=== PATIENT | female | born 1955 | race Caucasian/White ===

== ENCOUNTER → 2016-08-16 | Outpatient (CLI) | payer MEDICARE, MEDICAID ==
[2016-08-16 14:46] LABS: ALANINE AMINOTRANSFERASE 25 U/L (9-52); ALBUMIN 3.1 g/dL (3.5-5.0); ALKALINE PHOSPHATASE 90 U/L (38-126); ANION GAP 7 (5-19); ASPARTATE AMINO TRANSFERASE 22 U/L (14-36); BILIRUBIN,TOTAL 0.4 mg/dL (0.2-1.3); BLOOD UREA NITROGEN 14 mg/dL (7-20); CALCIUM 9.2 mg/dL (8.4-10.2); CARBON DIOXIDE 26 mmol/L (22-30); CHLORIDE 108 mmol/L (98-107); CREATININE RESULT 0.64 mg/dL (0.52-1.25); GLUCOSE 75 mg/dL (75-110); SODIUM 140.7 mmol/L (137-145); TOTAL PROTEIN 5.5 g/dL (6.3-8.2)
[2016-08-18 07:49] LABS: IMMUNOGLOBULIN A 104 mg/dL (87-352)
== END ==
LOC: OD 12:43
PROVIDERS: ATTEND Nurse Practitioner
DX: R10.9 Unspecified abdominal pain (principal); R19.7 Diarrhea, unspecified
CPT/HCPCS: 36415; 80048; 80076; 82784; 83516

== ENCOUNTER 2016-12-18 02:29 | Emergency (ER) | payer MEDICARE, MEDICAID ==
--- NOTE | 2016-12-18 02:58 | ER Document Report ---
ED Fall - General Chief Complaint: General Weakness Stated Complaint: WEAKNESS Time Seen by Provider: 12/18/16 02:48 Mode of Arrival: Medic Information source: Patient Notes: 61-year-old female presents to ED via EMS after a fall at home. According to EMS her states that she heard her crying and calling out she come in from a walk and fell. Patient is confused and answering questions inappropriately eyes pinpoint falling to sleep. TRAVEL OUTSIDE OF THE [place] IN LAST 30 DAYS: No - HPI Occurred: This morning Where: Home Associated symptoms: Dazed/confused - slurred speech Quality of pain: No pain Severity: None Pain Level: Denies - Related data Allergies/Adverse Reactions: No Known Allergies Allergy (Verified 12/18/16 02:43) Past Medical History - General Information source: Patient - Social History Smoking Status: Current Every Day Smoker Cigarette use (# per day): Yes - ppd Chew tobacco use (# tins/day): No Smoking Education Provided: Yes - less than min Frequency of alcohol use: Social Drug Abuse: None Lives with: Spouse/Significant other - Family History: Reviewed & Not Pertinent Patient has suicidal ideation: No Patient has homicidal ideation: No - Past Medical History Cardiac Medical History: Reports: None Pulmonary Medical History: Reports: Hx COPD - questionable EENT Medical History: Reports: None Neurological Medical History: Reports: None Endocrine Medical History: Reports: None Renal/ Medical History: Reports: None Malignancy Medical History: Reports: None GI Medical History: Reports: None Musculoskeltal Medical History: Reports Hx Arthritis - generalized , Reports Hx Musculoskeletal Deformity, Reports Other - chronic pain syndrome Skin Medical History: Reports None Psychiatric Medical History: Reports: Hx Anxiety Traumatic Medical History: Reports: None Infectious Medical History: Reports: None Past Surgical History: Reports: Hx Cholecystectomy, Hx Orthopedic Surgery - astrid wrists, ankle, Hx Tonsillectomy, Hx Tubal Ligation - Immunizations Hx Diphtheria, Pertussis, Tetanus Vaccination: No Review of Systems - Review of Systems Constitutional: No symptoms reported EENT: Other - pinpoint pupils Cardiovascular: Dizziness, Lightheaded, Other - hypotensive Respiratory: No symptoms reported Gastrointestinal: No symptoms reported Genitourinary: No symptoms reported Female Genitourinary: No symptoms reported Musculoskeletal: No symptoms reported Skin: No symptoms reported Hematologic/Lymphatic: No symptoms reported Neurological/Psychological: Confusion, Weakness, Speech impairment - slurred -: Yes All other systems reviewed and negative Physical Exam - Vital signs Vitals: BP Pulse Ox 92/69 L 98 12/18/16 02:35 12/18/16 02:35 Interpretation: Normal - General General appearance: Appears well, Alert - HEENT Head: Normocephalic, Atraumatic Eyes: Normal Pupils: PERRL - Respiratory Respiratory status: No respiratory distress Chest status: Nontender Breath sounds: Normal Chest palpation: Normal - Cardiovascular Rhythm: Regular Heart sounds: Normal auscultation Murmur: No - Abdominal Inspection: Normal Distension: No distension Bowel sounds: Normal Tenderness: Nontender Organomegaly: No organomegaly - Back Back: Normal, Nontender - Extremities General upper extremity: Normal inspection, Nontender, Normal color, Normal ROM , Normal temperature General lower extremity: Normal inspection, Nontender, Normal color, Normal ROM , Normal temperature, Normal weight bearing. No: Jose's sign - Neurological Neuro grossly intact: Yes Cognition: Confused Kristian Coma Scale Eye Opening: Spontaneous [place] Coma Scale Verbal: Confused Kristian Coma Scale Motor: Obeys Commands Kristian Coma Scale Total: 14 Speech: Normal Motor strength normal: LUE, RUE, LLE, RLE Additional motor exam normals: Equal asset protection professional Babinski reflex: Normal (flexor plantar) Sensory: Normal - Psychological Associated symptoms: Confused, Other - Patient has slurred speech, sometimes answers questions appropriately sometimes does not, appropriate answers. Responds to verbal stimuli sometimes. - Skin Skin Temperature: Warm Skin Moisture: Dry Skin Color: Normal Course - Re-evaluation Re-evalutation: 12/18/16 06:03 Patient is now alert and oriented a week able to ambulate steady on her feet. Consulted Dr. Mattson stated the patient can go home now as her medications have worn off. Patient home to follow-up with her primary doctor. - Vital Signs Vital signs: Temp Pulse Resp BP Pulse Ox 97.6 F 88 5 L 112/91 H 100 12/18/16 02:46 12/18/16 03:31 12/18/16 05:26 12/18/16 05:26 12/18/16 05:26 - Laboratory Result Diagrams: 12/18/16 02:57 12/18/16 02:57 Laboratory results interpreted by me: 12/18/16 12/18/16 02:57 02:57 RBC 3.40 L Hgb 10.4 L Hct 31.9 L RDW 14.5 H Chloride 113 H Direct Bilirubin 0.5 H Total Protein 5.4 L Albumin 3.0 L - Diagnostic Test Radiology reviewed: Image reviewed, Reports reviewed Discharge - Discharge Clinical Impression: Weakness Condition: Stable Disposition: HOME, SELF-CARE Additional Instructions: you were seen today for weakness and confusion to your pain medications that she took tonight. Your now awake alert oriented and able to walk freely. Please forward when taken your pain medication so that they do not make weekly and fall. Please follow-up with your primary doctor in Tuesday FOLLOW-UP CARE: If you have been referred to a physician for follow-up care, call the physician s office for an appointment as you were instructed or within the next two days. If you experience worsening or a significant change in your symptoms, notify the physician immediately or return to the Emergency Department at any time for re-evaluation. Forms: Elevated Blood Pressure, Smoking Cessation Education Referrals: IRIS APARICIO NP [COMMUNITY BASED STAFF] - Follow up as needed
[2016-12-18] MEDS ORDERED: NALOXONE HCL INJ/PF 0.4 MG/1 ML SDV IV ONE (03:11)
[2016-12-18 03:13] LABS: ABSOLUTE BASOPHILS # (AUTO) 0.1 10^3/uL (0.0-0.2); ABSOLUTE EOSINOPHILS # (AUTO) 0.3 10^3/uL (0.0-0.6); ABSOLUTE LYMPHOCYTES (AUTO) 1.9 10^3/uL (0.5-4.7); ABSOLUTE MONOCYTES (AUTO) 0.5 10^3/uL (0.1-1.4); ABSOLUTE NEUT (AUTO) 5.6 10^3/uL (1.7-8.2); BASOPHILS % (AUTO) 0.8 % (0-2); EOSINOPHILS % (AUTO) 3.4 % (0-6); HEMATOCRIT 31.9 % (36.0-47.0); HEMOGLOBIN 10.4 g/dL (12.0-15.5); HGB HCT DIFFERENCE -0.7; LYMPHOCYTES % (AUTO) 22.2 % (13-45); MEAN CORPUSCULAR HEMOGLOBIN 30.5 pg (27.0-33.4); MEAN CORPUSCULAR HGB CONC 32.5 g/dL (32.0-36.0); MEAN CORPUSCULAR VOLUME 94 fl (80-97); MONOCYTES % (AUTO) 6.6 % (3-13); RED CELL DISTRIBUTION WIDTH 14.5 % (11.5-14.0); WHITE BLOOD COUNT 8.3 10^3/uL (4.0-10.5)
[2016-12-18 03:19] LABS: ALANINE AMINOTRANSFERASE 28 U/L (9-52); ALKALINE PHOSPHATASE 86 U/L (38-126); ANION GAP 5 (5-19); ASPARTATE AMINO TRANSFERASE 15 U/L (14-36); BILIRUBIN,DIRECT 0.5 mg/dL (0.0-0.4); BILIRUBIN,TOTAL 0.5 mg/dL (0.2-1.3); BLOOD UREA NITROGEN 17 mg/dL (7-20); CALCIUM 8.7 mg/dL (8.4-10.2); CARBON DIOXIDE 23 mmol/L (22-30); CHLORIDE 113 mmol/L (98-107); CREATINE KINASE 74 U/L (30-135); CREATININE RESULT 0.84 mg/dL (0.52-1.25); GLUCOSE 94 mg/dL (75-110); POTASSIUM 3.8 mmol/L (3.6-5.0); SODIUM 141.2 mmol/L (137-145); TOTAL PROTEIN 5.4 g/dL (6.3-8.2)
[2016-12-18 03:25] LABS: PROTHROMBIN TIME 12.5 SEC (11.4-15.4)
--- NOTE | 2016-12-18 03:27 | RADIOLOGY REPORT (SQ) ---
EXAM DESCRIPTION: CT HEAD WITHOUT COMPLETED DATE/TIME: 12/18/2016 3:10 am REASON FOR STUDY: fall confused altered mental COMPARISON: 08/01/2015. MRI, 06/16/2015. TECHNIQUE: Axial images acquired through the brain without intravenous contrast. Images reviewed wi th bone, brain and subdural windows. Images stored on PACS. All CT scanners at this facility use dose modulation, iterative reconstruction, and/or weight based d osing when appropriate to reduce radiation dose to as low as reasonably achievable (ALARA). [facility]: Dose Right [facility]: CareDose [facility]: Dose Right [facility]: Teradose 4D [facility]: [employer] RADIATION DOSE: Up-to-date CT equipment and radiation dose reduction techniques were employed. CTDIv ol: 64.6 mGy. DLP: 1163 mGy-cm. mGy. LIMITATIONS: None. FINDINGS: VENTRICLES: Normal size and contour. CEREBRUM: No masses. No hemorrhage. No midline shift. Normal sanchez/white matter differentiation. N o evidence for acute infarction. Scattered areas of poorly defined diminished white matter density c onsistent with advanced white matter microangiopathy or other white matter process, stable. Small la cunar infarct at the head of the left caudate nucleus. CEREBELLUM: No masses. No hemorrhage. No alteration of density. No evidence for acute infarction. EXTRAAXIAL SPACES: No fluid collections. No masses. ORBITS AND GLOBE: No intra- or extraconal masses. Normal contour of globe without masses. CALVARIUM: No fracture. PARANASAL SINUSES: No fluid or mucosal thickening. SOFT TISSUES: No mass or hematoma. OTHER: No other significant finding. IMPRESSION: No acute findings. Small lacunar infarct of the left basal ganglia. [id number] c hronic white matter microangiopathy pattern. TECHNICAL DOCUMENTATION: JOB ID: [id number] Quality ID # [id number]: Final reports with documentation of one or more dose reduction techniques (e.g., Au tomated exposure control, adjustment of the mA and/or kV according to patient size, use of iterative reconstruction technique) 2010 [employer]- All Rights Reserved
--- NOTE | 2016-12-18 03:29 | RADIOLOGY REPORT (SQ) ---
EXAM DESCRIPTION: CHEST SINGLE VIEW COMPLETED DATE/TIME: 12/18/2016 3:16 am REASON FOR STUDY: hypotensive today altered COMPARISON: 01/26/2016. EXAM PARAMETERS: NUMBER OF VIEWS: One view. TECHNIQUE: Single frontal radiographic view of the chest acquired. RADIATION DOSE: NA LIMITATIONS: None. FINDINGS: LUNGS AND PLEURA: No opacities, masses or pneumothorax. No pleural effusion. Mild interst itial markings. MEDIASTINUM AND HILAR STRUCTURES: No masses. Contour normal. HEART AND VASCULAR STRUCTURES: Heart normal in size. Normal vasculature. BONES: No acute findings. HARDWARE: None in the chest. OTHER: No other significant finding. IMPRESSION: No acute cardiopulmonary findings. TECHNICAL DOCUMENTATION: JOB ID: [id number]
[2016-12-18 03:36] LABS: TROPONIN I < 0.012 ng/mL
[2016-12-18 04:01] LABS: APPEARANCE,URINE CLEAR; BILIRUBIN,URINE NEGATIVE (NEGATIVE); GLUCOSE, URINE NEGATIVE (NEGATIVE); KETONES,URINE NEGATIVE (NEGATIVE); LEUKOCYTE ESTERASE,URINE NEGATIVE (NEGATIVE); NITRITE,URINE NEGATIVE (NEGATIVE); PROTEIN,URINE NEGATIVE (NEGATIVE); URINE SPECIFIC GRAVITY 1.013; UROBILINOGEN,URINE NEGATIVE mg/dL (<2.0)
[2016-12-18 04:04] LABS: URINE BARBITURATES SCREEN NEGATIVE; URINE METHADONE SCREEN NEGATIVE; URINE OPIATES LOW UNCONFIRMED POSITIVE; URINE PHENCYCLIDINE SCREEN NEGATIVE
[2016-12-18 07:05] VITALS: BP 120/72
--- NOTE | 2016-12-18 09:12 | EKG REPORT ---
SEVERITY:- NORMAL ECG - SINUS RHYTHM : Confirmed by: You Lopez MD 18-Dec-2016 09:11:39
== END 2016-12-18 07:06 | disposition home or self-care (01) ==
LOC: ER 02:29
DX: R53.1 Weakness (principal); R41.0 Disorientation, unspecified; R47.81 Slurred speech; I95.9 Hypotension, unspecified; R42 Dizziness and giddiness; F17.210 Nicotine dependence, cigarettes, uncomplicated; Z71.6 Tobacco abuse counseling; Z91.81 History of falling
CPT/HCPCS: 93005; 99285; 96374; 36415; 82553; 82550; 85025; 85610; 80053; 81001; 84484; 80307; 71010; 70450; 93010; J2310

== ENCOUNTER 2016-12-19 17:02 | Emergency (ER) | payer MEDICARE, MEDICAID ==
[2016-12-19] MEDS ORDERED: NORMAL SALINE 1000 ML 1,000 ML IV ONE ×2 (17:15→21:55)
[2016-12-19 17:40] LABS: PROTHROMBIN TIME 12.9 SEC (11.4-15.4)
[2016-12-19 17:44] LABS: ABSOLUTE EOSINOPHILS # (AUTO) 0.2 10^3/uL (0.0-0.6); ABSOLUTE LYMPHOCYTES (AUTO) 2.5 10^3/uL (0.5-4.7); ABSOLUTE MONOCYTES (AUTO) 0.5 10^3/uL (0.1-1.4); BASOPHILS % (AUTO) 0.5 % (0-2); EOSINOPHILS % (AUTO) 1.7 % (0-6); HEMATOCRIT 30.6 % (36.0-47.0); HEMOGLOBIN 9.9 g/dL (12.0-15.5); HGB HCT DIFFERENCE -0.9; LYMPHOCYTES % (AUTO) 27.2 % (13-45); MEAN CORPUSCULAR HEMOGLOBIN 30.4 pg (27.0-33.4); MEAN CORPUSCULAR HGB CONC 32.3 g/dL (32.0-36.0); MEAN CORPUSCULAR VOLUME 94 fl (80-97); MONOCYTES % (AUTO) 5.7 % (3-13); RED BLOOD COUNT 3.25 10^6/uL (3.72-5.28); RED CELL DISTRIBUTION WIDTH 14.7 % (11.5-14.0); SEGMENTED NEUTROPHILS % (AUTO) 64.9 % (42-78); WHITE BLOOD COUNT 9.3 10^3/uL (4.0-10.5)
[2016-12-19 17:47] LABS: APPEARANCE,URINE CLEAR; BILIRUBIN,URINE NEGATIVE (NEGATIVE); GLUCOSE, URINE NEGATIVE (NEGATIVE); KETONES,URINE NEGATIVE (NEGATIVE); LEUKOCYTE ESTERASE,URINE TRACE (NEGATIVE); NITRITE,URINE NEGATIVE (NEGATIVE); PROTEIN,URINE NEGATIVE (NEGATIVE); URINE SPECIFIC GRAVITY 1.023; UROBILINOGEN,URINE NEGATIVE mg/dL (<2.0)
[2016-12-19 17:55] LABS: VENOUS BLOOD BASE EXCESS -3.9 mmol/L; VENOUS BLOOD HCO3 23.2 mmol/L (20-32); VENOUS BLOOD PCO2 51.6 mmHg (35-63); VENOUS BLOOD PH 7.27 (7.30-7.42)
[2016-12-19 18:01] LABS: ALANINE AMINOTRANSFERASE 30 U/L (9-52); ALBUMIN 3.1 g/dL (3.5-5.0); ALKALINE PHOSPHATASE 83 U/L (38-126); ANION GAP 7 (5-19); ASPARTATE AMINO TRANSFERASE 16 U/L (14-36); BILIRUBIN,DIRECT 0.5 mg/dL (0.0-0.4); BILIRUBIN,TOTAL 0.5 mg/dL (0.2-1.3); BLOOD UREA NITROGEN 18 mg/dL (7-20); CALCIUM 8.9 mg/dL (8.4-10.2); CARBON DIOXIDE 22 mmol/L (22-30); CHLORIDE 112 mmol/L (98-107); CREATINE KINASE 118 U/L (30-135); CREATININE RESULT 0.88 mg/dL (0.52-1.25); GLUCOSE 77 mg/dL (75-110); POTASSIUM 3.4 mmol/L (3.6-5.0); TOTAL PROTEIN 5.5 g/dL (6.3-8.2)
--- NOTE | 2016-12-19 18:09 | ER Document Report ---
ED General - General Cannot obtain history due to: Altered mental status TRAVEL OUTSIDE OF THE [place] IN LAST 30 DAYS: No <JOSUE POOLE - Last Filed: 12/19/16 19:48> <JIM HURST - Last Filed: 12/19/16 23:29> - General Chief Complaint: Possible Overdose Stated Complaint: ALTERED MENTAL STATUS Time Seen by Provider: 12/19/16 17:13 Notes: Patient is a 61 year old female who presents to the ED with altered mental status. Patient knows she is in the hospital but is unsure why she was brought here. Patient denies any pain but later stated she had new abdominal pain. Patient also denied a cough but a cough was noted while in the exam room. History limited due to patients current clinical condition. (JOSUE POOLE ) - Related Data Allergies/Adverse Reactions: No Known Allergies Allergy (Verified 12/18/16 02:43) Past Medical History - General Cannot obtain history due to: Altered mental status - Social History Smoking Status: Unknown if Ever Smoked Family History: Reviewed & Not Pertinent - Past Medical History Cardiac Medical History: Denies: Hx Coronary Artery Disease, Hx Heart Attack, Hx Hypertension Pulmonary Medical History: Reports: Hx COPD - questionable Denies: Hx Asthma, Hx Bronchitis, Hx Pneumonia Neurological Medical History: Denies: Hx Cerebrovascular Accident, Hx Seizures Renal/ Medical History: Denies: Hx Peritoneal Dialysis Musculoskeltal Medical History: Reports Hx Arthritis - generalized , Reports Hx Musculoskeletal Deformity Psychiatric Medical History: Reports: Hx Anxiety Past Surgical History: Reports: Hx Cholecystectomy, Hx Orthopedic Surgery - astrid wrists, ankle, Hx Tonsillectomy, Hx Tubal Ligation - Immunizations Hx Diphtheria, Pertussis, Tetanus Vaccination: No <JOSUE POOLE - Last Filed: 12/19/16 19:48> Review of Systems - Review of Systems -: Yes ROS unobtainable due to patient's medical condition Gastrointestinal: Abdominal pain <JOSUE POOLE - Last Filed: 12/19/16 19:48> Physical Exam - Vital signs Interpretation: Hypotensive. No: Bradycardic, Tachycardic, Tachypneic, Febrile - General General appearance: Lethargic - Respiratory Respiratory status: No respiratory distress Chest status: Nontender Breath sounds: Normal Chest palpation: Normal - Cardiovascular Rhythm: Regular Heart sounds: Normal auscultation Murmur: No - Abdominal Inspection: Normal Distension: No distension Bowel sounds: Normal Tenderness: Nontender Organomegaly: No organomegaly - Back Back: Normal, Nontender - Extremities General upper extremity: Normal inspection, Nontender, Normal color, Normal ROM , Normal temperature General lower extremity: Normal inspection, Nontender, Normal color, Normal ROM , Normal temperature, Normal weight bearing. No: Jose's sign - Neurological Cognition: Confused Orientation: Disoriented to time, Disoriented to events. No: Disoriented to person, Disoriented to place Kristian Coma Scale Eye Opening: To Voice [place] Coma Scale Verbal: Confused Kristian Coma Scale Motor: Obeys Commands Kristian Coma Scale Total: 13 Speech: Normal Motor strength normal: LUE, RUE, LLE, RLE Sensory: Normal <JIM HURST - Last Filed: 12/19/16 23:29> - Vital signs Vitals: Temp Pulse Resp BP Pulse Ox 98.1 F 92 13 95/65 L 97 12/19/16 17:10 12/19/16 17:10 12/19/16 17:10 12/19/16 17:10 12/19/16 17:10 Course - Laboratory Result Diagrams: 12/19/16 17:20 12/19/16 17:20 <JOSUE POOLE - Last Filed: 12/19/16 19:48> - Laboratory Result Diagrams: 12/19/16 17:20 12/19/16 17:20 <JIM HURST - Last Filed: 12/19/16 23:29> - Re-evaluation Re-evalutation: 12/19/16 19:20 Narcan was administered. Patient appears more arousable. 12/19/16 19:48 Patient has not improved following the dose of Narcan. Patient now has diarrhea. (JOSUE POOLE) 12/19/16 19:30 Patient is a 61-year-old female who comes in for weakness and drowsiness. EMS was called apparently by her family. Patient states that she is in the hospital and she is just very tired because she has been doing too much work lately. She cannot tell me the date or time. Patient with no acute findings on imaging or blood work except for a slight acidosis on blood gas. Patient has been seen before for polypharmacy. Patient has empty bottles with Suboxone lorazepam, and gabapentin. Given Narcan with minimal response. Given second dose with diarrhea although the patient is slightly more arousable. 12/19/16 20:19 Stool sent for culture. 12/19/16 23:00 Patient is awake and asking to leave. Explained that she was here it seems because she is taking too many of her medications. Patient states that she may have taken some of her family members medications by mistake as well. Explained to the patient that this is the second time this week she has been here for the and she needs to be more careful with her medications. Patient is not suicidal. Stable for discharge otherwise. (JIM HURST) - Vital Signs Vital signs: Temp Pulse Resp BP Pulse Ox 98.5 F 82 14 127/83 H 100 12/19/16 23:00 12/19/16 23:00 12/19/16 23:00 12/19/16 23:00 12/19/16 23:00 - Laboratory Laboratory results interpreted by me: 12/19/16 12/19/16 12/19/16 17:20 17:20 17:20 RBC 3.25 L Hgb 9.9 L Hct 30.6 L RDW 14.7 H VBG pH Potassium 3.4 L Chloride 112 H Lactic Acid Direct Bilirubin 0.5 H Total Protein 5.5 L Albumin 3.1 L Ur Leukocyte Esterase TRACE H 12/19/16 12/19/16 17:40 17:40 RBC Hgb Hct RDW VBG pH 7.27 L Potassium Chloride Lactic Acid 0.6 L Direct Bilirubin Total Protein Albumin Ur Leukocyte Esterase Discharge <JOSUE POOLE - Last Filed: 12/19/16 19:48> <JIM HURST - Last Filed: 12/19/16 23:29> - Discharge Clinical Impression: Weakness, Polypharmacy Overdose Qualifiers: Encounter type: initial encounter Injury intent: accidental or unintentional Qualified Code(s): T50.901A - Poisoning by unspecified drugs, medicaments and biological substances, accidental (unintentional), initial encounter Condition: Stable Disposition: HOME, SELF-CARE Instructions: Weakness ([facility]), Instructions for Home Care Following a Drug Overdose ([facility]), Overdose ([facility]) Additional Instructions: Please make sure you are only taking your medication as prescribed. Please make sure you are not taking anybody else's medication. Referrals: IRIS APARICIO NP [Primary Care Provider] - Follow up tomorrow Tracey Attestation: 12/19/16 23:29 I personally performed the services described in the documentation, reviewed and edited the documentation which was dictated to the scribe in my presence, and it accurately records my words and actions. (JIM HURST) Scribe Documentation - Scribe Written by Tracey:: tracey Hudson, 12/19/2016, 1809 acting as scribe for :: Niko <JOSUE POOLE - Last Filed: 12/19/16 19:48>
[2016-12-19 18:11] LABS: CREATINE KINASE MB 1.31 ng/mL (<4.55)
[2016-12-19 18:13] LABS: TROPONIN I < 0.012 ng/mL
--- NOTE | 2016-12-19 18:14 | RADIOLOGY REPORT (SQ) ---
EXAM DESCRIPTION: CHEST SINGLE VIEW COMPLETED DATE/TIME: 12/19/2016 5:31 pm REASON FOR STUDY: AMS COMPARISON: 12/18/2016 EXAM PARAMETERS: NUMBER OF VIEWS: One view. TECHNIQUE: Single frontal radiographic view of the chest acquired. RADIATION DOSE: NA LIMITATIONS: None. FINDINGS: LUNGS AND PLEURA: No acute opacities, masses or pneumothorax. No pleural effusion. MEDIASTINUM AND HILAR STRUCTURES: No masses. Contour normal. HEART AND VASCULAR STRUCTURES: Heart normal in size. Normal vasculature. BONES: No acute findings. HARDWARE: None in the chest. OTHER: No other significant finding. IMPRESSION: NO ACUTE RADIOGRAPHIC FINDING IN THE CHEST. TECHNICAL DOCUMENTATION: JOB ID: [id number]
[2016-12-19 18:42] LABS: URINE BARBITURATES SCREEN NEGATIVE; URINE METHADONE SCREEN NEGATIVE; URINE OPIATES LOW UNCONFIRMED POSITIVE; URINE PHENCYCLIDINE SCREEN NEGATIVE
[2016-12-19] MEDS ORDERED: NALOXONE HCL INJ/PF 0.4 MG/1 ML SDV IV ONE ×2 (18:49→19:18)
--- NOTE | 2016-12-19 20:47 | RADIOLOGY REPORT (SQ) ---
EXAM DESCRIPTION: CT HEAD WITHOUT COMPLETED DATE/TIME: 12/19/2016 8:36 pm REASON FOR STUDY: AMS COMPARISON: 12/18/2016 TECHNIQUE: Axial images acquired through the brain without intravenous contrast. Images reviewed wi th bone, brain and subdural windows. Images stored on PACS. All CT scanners at this facility use dose modulation, iterative reconstruction, and/or weight based d osing when appropriate to reduce radiation dose to as low as reasonably achievable (ALARA). [facility]: Dose Right [facility]: CareDose [facility]: Dose Right [facility]: Teradose 4D [facility]: [employer] RADIATION DOSE: mGy. LIMITATIONS: None. FINDINGS: VENTRICLES: Prominent. CEREBRUM: No masses. No hemorrhage. No midline shift. Areas of low density in the white matter mos t likely due to chronic micro-vascular ischemic change. No evidence for acute infarction. CEREBELLUM: No masses. No hemorrhage. No alteration of density. No evidence for acute infarction. EXTRAAXIAL SPACES: Mild age-related involutional change. No fluid collections. No masses. ORBITS AND GLOBE: No intra- or extraconal masses. Normal contour of globe without masses. CALVARIUM: No fracture. PARANASAL SINUSES: No fluid or mucosal thickening. SOFT TISSUES: No mass or hematoma. OTHER: No other significant finding. IMPRESSION: No acute intracranial findings. TECHNICAL DOCUMENTATION: JOB ID: [id number] Quality ID # [id number]: Final reports with documentation of one or more dose reduction techniques (e.g., Au tomated exposure control, adjustment of the mA and/or kV according to patient size, use of iterative reconstruction technique) 2010 [employer]- All Rights Reserved
[2016-12-19] MEDS ORDERED: FLUMAZENIL INJ 0.5 MG/5 ML VIAL IV ONE (21:55)
[2016-12-19 23:03] VITALS: BP 127/83
--- NOTE | 2016-12-20 08:16 | EKG REPORT ---
SEVERITY:- OTHERWISE NORMAL ECG - SINUS RHYTHM LOW VOLTAGE IN FRONTAL LEADS : Confirmed by: You Lopez MD 20-Dec-2016 08:16:00
== END 2016-12-19 23:02 | disposition home or self-care (01) ==
LOC: ER 17:02
DX: T50.901A Poisoning by unspecified drugs, medicaments and biological substances, accidental (unintentional), initial encounter (principal); I95.9 Hypotension, unspecified; R10.9 Unspecified abdominal pain; R19.7 Diarrhea, unspecified; R53.1 Weakness; R40.0 Somnolence; E87.2 Acidosis; R05 Cough; Z90.49 Acquired absence of other specified parts of digestive tract
CPT/HCPCS: 93005; 99285; 51701; 96374; 36415; 87040; 87045; 87086; 89055; 87205; 82553; 82962; 82550; 85025; 85610; 82272; 80053; 81001; 84484; 80307; 87493 ×2; 82803; 83605; 71010; 70450; 93010; J2310; J7030; J3490

== ENCOUNTER → 2017-01-13 | Outpatient (CLI) | payer MEDICARE, MEDICAID ==
[2017-01-13 10:35] LABS: ABSOLUTE BASOPHILS # (AUTO) 0.1 10^3/uL (0.0-0.2); ABSOLUTE EOSINOPHILS # (AUTO) 0.3 10^3/uL (0.0-0.6); ABSOLUTE LYMPHOCYTES (AUTO) 2.5 10^3/uL (0.5-4.7); ABSOLUTE MONOCYTES (AUTO) 0.5 10^3/uL (0.1-1.4); ABSOLUTE NEUT (AUTO) 3.2 10^3/uL (1.7-8.2); EOSINOPHILS % (AUTO) 4.7 % (0-6); HEMATOCRIT 33.3 % (36.0-47.0); HGB HCT DIFFERENCE -0.3; LYMPHOCYTES % (AUTO) 37.8 % (13-45); MEAN CORPUSCULAR HGB CONC 32.9 g/dL (32.0-36.0); MEAN CORPUSCULAR VOLUME 94 fl (80-97); MONOCYTES % (AUTO) 7.6 % (3-13); RED BLOOD COUNT 3.53 10^6/uL (3.72-5.28); RED CELL DISTRIBUTION WIDTH 14.2 % (11.5-14.0); SEGMENTED NEUTROPHILS % (AUTO) 48.9 % (42-78); WHITE BLOOD COUNT 6.5 10^3/uL (4.0-10.5)
[2017-01-13 11:26] LABS: ALANINE AMINOTRANSFERASE 22 U/L (9-52); ALBUMIN 3.7 g/dL (3.5-5.0); ALKALINE PHOSPHATASE 94 U/L (38-126); AMYLASE 45 U/L (30-110); ASPARTATE AMINO TRANSFERASE 16 U/L (14-36); BILIRUBIN,DIRECT 0.4 mg/dL (0.0-0.4); BILIRUBIN,TOTAL 0.4 mg/dL (0.2-1.3); LIPASE 41.5 U/L (23-300); TOTAL PROTEIN 6.3 g/dL (6.3-8.2)
== END ==
LOC: OD 09:31
PROVIDERS: ATTEND Nurse Practitioner
DX: R10.9 Unspecified abdominal pain (principal); K86.1 Other chronic pancreatitis
CPT/HCPCS: 36415; 80076; 82150; 83690; 85025

== ENCOUNTER 2017-01-18 09:24 | Day surgery (SDC) | payer MEDICARE, MEDICAID ==
[2017-01-13 10:32] LABS: APPEARANCE,URINE CLEAR; BILIRUBIN,URINE NEGATIVE (NEGATIVE); GLUCOSE, URINE NEGATIVE (NEGATIVE); KETONES,URINE NEGATIVE (NEGATIVE); LEUKOCYTE ESTERASE,URINE TRACE (NEGATIVE); NITRITE,URINE NEGATIVE (NEGATIVE); PROTEIN,URINE NEGATIVE (NEGATIVE); URINE SPECIFIC GRAVITY 1.021; UROBILINOGEN,URINE NEGATIVE mg/dL (<2.0)
[2017-01-13 10:41] LABS: HEMATOCRIT 33.3 % (36.0-47.0); HGB HCT DIFFERENCE -0.3; MEAN CORPUSCULAR HGB CONC 32.9 g/dL (32.0-36.0); MEAN CORPUSCULAR VOLUME 94 fl (80-97); RED BLOOD COUNT 3.53 10^6/uL (3.72-5.28); RED CELL DISTRIBUTION WIDTH 14.2 % (11.5-14.0); WHITE BLOOD COUNT 6.5 10^3/uL (4.0-10.5)
[~2017-01-18 09:24] MED LIST: LACTATED RINGERS 1000 ML IV PRN; LIDOCAINE 0.5% INJ-PF (5 MG/ML) 50 ML SDV SUBCUT PRN; LIDOCAINE 2%/EPINEPHRINE INJ 20 ML VIAL ONE
[2017-01-18] MEDS ORDERED: MIDAZOLAM 2 MG/2 ML INJ ONE ×2 (10:04→11:37)
[2017-01-18] MEDS ORDERED: FENTANYL CITRATE INJ/PF 100 MCG/2 ML AMPUL ONE ×2 (10:59→11:37)
[2017-01-18] MEDS ORDERED: FENTANYL CITRATE INJ/PF 100 MCG/2 ML AMPUL IV PRN ×4 (11:00→12:25)
[2017-01-18] MEDS ORDERED: PROPOFOL INJ 200 MG/20 ML VIAL IV ONE (11:37)
[2017-01-18] MEDS ORDERED: IBUPROFEN INJ 800 MG/8 ML VIAL IV ONE (11:37)
[2017-01-18] MEDS ORDERED: ACETAMINOPHEN 0 ML IV ONE (11:37)
[2017-01-18] MEDS ORDERED: DEXAMETHASONE SOD PHOSPHATE INJ 4 MG/1 ML VIAL ONE (11:41)
[2017-01-18] MEDS ORDERED: ONDANSETRON HCL INJ/PF 4 MG/2 ML SDV ONE (11:41)
[2017-01-18] MEDS ORDERED: SUCCINYLCHOLINE CHLORIDE INJ 200 MG/10 ML VIAL ONE (12:12)
[2017-01-18] MEDS ORDERED: DIPHENHYDRAMINE HCL 50 MG/ML VIAL IV PRN (12:25)
[2017-01-18] MEDS ORDERED: PROMETHAZINE HCL INJ 25 MG/1 ML VIAL IV PRN ×2 (12:25)
[2017-01-18] MEDS ORDERED: OXYCODONE-ACETAMINOPHEN 5-325 MG TABLET PO PRN ×2 (12:25)
[2017-01-18] MEDS ORDERED: ONDANSETRON HCL INJ/PF 4 MG/2 ML SDV IV PRN ×2 (12:25→13:37)
[2017-01-18] MEDS ORDERED: MEPERIDINE HCL/PF INJ 25 MG/1 ML DISP.SYRIN IV PRN (12:25)
[2017-01-18] MEDS ORDERED: MORPHINE SULFATE 10 MG/ML INJ IV PRN (12:25)
[2017-01-18] MEDS: FENTANYL CITRATE INJ/PF 100 MCG/2 ML AMPUL ONE ×2 (13:15→13:20)
[2017-01-18 15:24] VITALS: BP 140/82
--- NOTE | 2017-02-17 12:30 | Operative Report ---
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 REviewed with patient due to anatomy (prior CKC) and would recommend evaluation and management in the OR. She desires to proceed with planned procedure. The risks,benefits, alternatives were reviewed. ] Procedure: The patient was taken to the Operating Room where general anesthesia was obtained without difficulty. She was prepped and draped in the normal sterile fashion in the dorsal lithotomy position. Exam under anesthesia was performed and noted above. A speculum was placed in the vagina. The anterior cervix was grasped with a single-tooth tenaculum and paracervical block was performed with 8 mL of 1% lidocaine with epinephrine. Sutures of 20 vicryl were placed at that 3 o'clock and the 9 o'clock position. Lugols solution was then placed on the cervix with diffuse generalized uptake. Due to prior pathology and concern that abnormality may be higher in the cervix endometrial currettings were attempted. At this time the cold knife conization was performed in the usual fashion and sent ot pathology. Endocervical currettage was performed above the CKC specimen and the bed of the CKC was cauterized for hemostasis. Thrombin foam soaked in monsels was then placed in the bed of the CKC and retained in place with the prior placed sutures. Excess suture was removed. Good hemostasis was achieved. All instruments were removed from the patient's cervix and vagina. Sponge lap needle and instrument counts are correct 2. The patient tolerated the procedure well and was taken to the recovery area awake and in stable condition.
== END 2017-01-18 15:05 | disposition home or self-care (01) ==
LOC: OROUT 09:24
PROVIDERS: ATTEND Student in an Organized Health Care Education/Training Program
PROC: 0UBC7ZX Excision of Cervix, Via Natural or Artificial Opening, Diagnostic (ICD-10-PCS; principal; 2017-01-18 11:15)
DX: R87.613 High grade squamous intraepithelial lesion on cytologic smear of cervix (HGSIL) (principal); F17.210 Nicotine dependence, cigarettes, uncomplicated; M19.90 Unspecified osteoarthritis, unspecified site; Z85.41 Personal history of malignant neoplasm of cervix uteri; Z79.899 Other long term (current) drug therapy
CPT/HCPCS: 36415; 85027; 81001; 88305 ×2; 88307 ×2; 57520; J2250; J1100; J3010; J3490; A9270; J0330; J2405; J2704; J1741; 940; J0131

== ENCOUNTER 2017-03-13 15:59 | Emergency (ER) | payer MEDICARE, MEDICAID ==
[2017-03-13] MEDS ORDERED: NORMAL SALINE 1000 ML 1,000 ML IV ONE (16:34)
--- NOTE | 2017-03-13 16:35 | ER Document Report ---
ED General - General Mode of Arrival: Medic Information source: Emergency Med Personnel TRAVEL OUTSIDE OF THE [place] IN LAST 30 DAYS: No <ROCKY HUTCHINSON - Last Filed: 03/13/17 16:50> <MELODIE WILLIS - Last Filed: 03/13/17 23:27> - General Chief Complaint: Fall Stated Complaint: WEAKNESS Time Seen by Provider: 03/13/17 16:14 Notes: Patient is a 61-year-old female presented emergency department for fall and possible altered mental status. She was brought in by EMS he reports that the patient fell earlier today and is still sitting on the floor when they arrived. They report that the patient lives with a partner who was unable to help patient off the floor. EMS reports the patient was confused and had pale skin color. They also report the patient had generalized pain with movement. Patient was hypotensive upon arrival. Patient is a poor historian and mentions something about her pancreas. According to the [place] controlled substance reporting system the patient is chronically on oxycodone and Ativan. Patient last filled 90 tablets of 1 mg Ativan on 02/24/2017; patient takes 1 mg twice a day. Patient also filled 56 tablets of 10 mg oxycodone on 03/11/2017; this amount of tablets was increased from previous prescriptions of oxycodone. Patient's PCP is Nelly Richardson. (ROCKY HUTCHINSON) - Related Data Allergies/Adverse Reactions: No Known Allergies Allergy (Verified 01/11/17 10:27) Past Medical History - General Information source: Patient - Social History Smoking Status: Current Every Day Smoker Cigarette use (# per day): Yes - <0.5 ppd Chew tobacco use (# tins/day): No Smoking Education Provided: No Frequency of alcohol use: Heavy Drug Abuse: None Family History: None Patient has suicidal ideation: No Patient has homicidal ideation: No Pulmonary Medical History: Reports: Hx COPD - questionable Musculoskeltal Medical History: Reports Hx Arthritis - generalized , Reports Hx Musculoskeletal Deformity Psychiatric Medical History: Reports: Hx Anxiety Past Surgical History: Reports: Hx Cholecystectomy, Hx Orthopedic Surgery - astrid wrists, ankle, Hx Tonsillectomy, Hx Tubal Ligation - Immunizations Hx Diphtheria, Pertussis, Tetanus Vaccination: No <ROCKY HUTCHINSON - Last Filed: 03/13/17 16:50> Review of Systems - Review of Systems -: Yes ROS unobtainable due to patient's medical condition - Fall, confused <ROCKY HUTCHINSON - Last Filed: 03/13/17 16:50> Physical Exam - Vital signs Interpretation: Hypotensive <ROCKY HUTCHINSON - Last Filed: 03/13/17 16:50> <LAZAROMARIBELMELODIE - Last Filed: 03/13/17 23:27> - Vital signs Vitals: Temp Pulse Resp BP Pulse Ox 98.2 F 69 18 84/60 L 100 03/13/17 16:14 03/13/17 16:14 03/13/17 16:14 03/13/17 16:14 03/13/17 16:14 - Notes Notes: GENERAL: Alert, interacts well. Mild distress. HEAD: Normocephalic, atraumatic. EYES: Appear normal. Pupils equal, round, and reactive to light. ENT: Moist mucus membranes, tongue midline. NECK: Full range of motion. Supple. Trachea midline. LUNGS: Clear to auscultation bilaterally, no wheezes, rales, or rhonchi. No respiratory distress. HEART: Regular rate and rhythm. No murmurs, gallops, or rubs. ABDOMEN: Soft, non-tender. Non-distended. Normal bowel sounds. EXTREMITIES: Moves all 4 extremities spontaneously. Normal strength. No edema. NEUROLOGICAL: Patient whispers and speaks on her breath when answering certain questions. No focal neurological deficits. GCS 15. PSYCH: Normal affect, normal mood. SKIN: Warm, dry, normal turgor, pale. (ROCKY HUTCHINSON) Course <ROCKY HUTCHINSON - Last Filed: 03/13/17 16:50> - Laboratory Result Diagrams: 03/13/17 16:00 03/13/17 16:00 - Diagnostic Test Radiology reviewed: Image reviewed, Reports reviewed - Chest x-ray is unremarkable - EKG Interpretation by Me EKG shows normal: Sinus rhythm, Edison, Intervals, QRS Complexes, ST-T Waves Rate: Normal Rhythm: NSR <LAZAROMARIBEL GoddardMELODIE - Last Filed: 03/13/17 23:27> - Re-evaluation Re-evalutation: 03/13/17 17:25 The patient seemed to wake up quite a bit after IV Narcan. This is not the first time she is come here overmedicated. 10/01/17 18:29 When the patient was first seen, it was very difficult to understand her answers as they seem to be whispered and her speech was thick. At this time her blood pressure is up from the 80s-128, she is awake oriented. She claims that she was only tired because she has been having to take care of her . I advised her that she did seem to wake up after receiving Narcan which would suggest her symptoms were more likely due to excessive narcotic medication. At that point she wanted to know if she could go back home at this time. A repeat examination while she is a awake enough to answer appropriately, shows there is no specific tenderness to her back, extremities, chest, or abdomen. There are no bony abnormalities noted. (MELODIE WILLIS) - Vital Signs Vital signs: Temp Pulse Resp BP Pulse Ox 98.2 F 69 20 144/80 H 99 03/13/17 16:14 03/13/17 16:14 03/13/17 19:00 03/13/17 19:00 03/13/17 18:01 - Laboratory Laboratory results interpreted by me: 03/13/17 03/13/17 03/13/17 16:00 16:00 16:00 RBC 2.65 L Hgb 8.2 L Hct 24.5 L RDW 14.3 H Eosinophils % 7.0 H Chloride 111 H BUN 22 H Lactic Acid 0.6 L Total Protein 5.6 L Albumin 3.2 L Critical Care Note - Critical Care Note Total time excluding time spent on procedures (mins): 30 <MELODIE WILLIS - Last Filed: 03/13/17 23:27> Discharge <ROCKY HUTCHINSON - Last Filed: 03/13/17 16:50> <MELODIE WILLIS - Last Filed: 03/13/17 23:27> - Discharge Clinical Impression: Narcotic overdose Qualifiers: Encounter type: initial encounter Injury intent: accidental or unintentional Qualified Code(s): T40.601A - Poisoning by unspecified narcotics, accidental ( unintentional), initial encounter Anemia Qualifiers: Anemia type: unspecified type Qualified Code(s): D64.9 - Anemia, unspecified Condition: Stable Disposition: HOME, SELF-CARE Additional Instructions: Overdose: You have taken more medication than you should have. After your evaluation and care, it is felt that your overdose is not likely to be harmful or of any significant consequences to you and you are being discharged. In the future, you should be careful not to take more medications than what is prescribed for you. Although your overdose does not seem to be of any danger to you at this time, if you develop any unusual or unexpected symptoms after your discharge, you should return to the Emergency Department immediately for re-evaluation. Anemia: You have been found to have a significant anemia (a lower than normal amount of red blood cells). Anemia can be due to iron deficiency, vitamin deficiency, abnormal bleeding, or internal diseases. Usually, further tests are necessary to find the exact cause of the anemia. The most common cause of anemia is iron deficiency, often brought on by blood loss. This can be treated with iron supplements. If this appears to be the most likely cause, iron tablets may be prescribed even before all tests are complete. Contact the doctor at once if you note black or tarry-looking stools, bloody vomiting, shortness of breath, chest pain, or faintness. You should be quite careful about dosing your narcotics and benzodiazepines because your visit today's seems to be due to excessive amount of narcotic in your system. You were also found to be more anemic than her baseline. You should follow-up with your doctor in the next 1-2 days to review your lab work and your accidental overdose. RETURN TO THE EMERGENCY ROOM IF ANY NEW OR WORSENING SYMPTOMS. Scribe Attestation: 03/13/17 17:26 I personally performed the services described in the documentation, reviewed and edited the documentation which was dictated to the scribe in my presence, and it accurately records my words and actions. (MELODIE WILLIS) Scribe Documentation - Scribe Written by Dmitri:: Dmitri Jung, 03/13/2017 [id number] acting as scribe for :: Lazaro <ROCKY HUTCHINSON - Last Filed: 03/13/17 16:50>
[2017-03-13] MEDS ORDERED: NALOXONE HCL INJ/PF 0.4 MG/1 ML SDV IV ONE (16:36)
[2017-03-13 17:05] LABS: APPEARANCE,URINE CLEAR; BILIRUBIN,URINE NEGATIVE (NEGATIVE); GLUCOSE, URINE NEGATIVE (NEGATIVE); KETONES,URINE NEGATIVE (NEGATIVE); LEUKOCYTE ESTERASE,URINE NEGATIVE (NEGATIVE); NITRITE,URINE NEGATIVE (NEGATIVE); PROTEIN,URINE NEGATIVE (NEGATIVE); URINE SPECIFIC GRAVITY 1.021; UROBILINOGEN,URINE NEGATIVE mg/dL (<2.0)
[2017-03-13 17:14] LABS: WBC,URINE 0-1 /HPF
--- NOTE | 2017-03-13 17:36 | RADIOLOGY REPORT (SQ) ---
EXAM DESCRIPTION: CHEST SINGLE VIEW COMPLETED DATE/TIME: 03/13/2017 5:24 pm REASON FOR STUDY: hypotension COMPARISON: 12/19/2016 EXAM PARAMETERS: NUMBER OF VIEWS: One view. TECHNIQUE: Single frontal radiographic view of the chest acquired. RADIATION DOSE: NA LIMITATIONS: None. FINDINGS: LUNGS AND PLEURA: No acute opacities, masses or pneumothorax. No pleural effusion. MEDIASTINUM AND HILAR STRUCTURES: Stable. HEART AND VASCULAR STRUCTURES: Heart normal in size. Normal vasculature. BONES: No acute findings. HARDWARE: None in the chest. OTHER: No other significant finding. IMPRESSION: NO ACUTE RADIOGRAPHIC FINDING IN THE CHEST. TECHNICAL DOCUMENTATION: JOB ID: [id number]
[2017-03-13 17:42] LABS: ABSOLUTE BASOPHILS # (AUTO) 0.1 10^3/uL (0.0-0.2); ABSOLUTE EOSINOPHILS # (AUTO) 0.5 10^3/uL (0.0-0.6); ABSOLUTE LYMPHOCYTES (AUTO) 1.5 10^3/uL (0.5-4.7); ABSOLUTE MONOCYTES (AUTO) 0.6 10^3/uL (0.1-1.4); ABSOLUTE NEUT (AUTO) 4.1 10^3/uL (1.7-8.2); BASOPHILS % (AUTO) 0.9 % (0-2); HEMATOCRIT 24.5 % (36.0-47.0); HEMOGLOBIN 8.2 g/dL (12.0-15.5); HGB HCT DIFFERENCE 0.1; LYMPHOCYTES % (AUTO) 22.1 % (13-45); MEAN CORPUSCULAR HGB CONC 33.6 g/dL (32.0-36.0); MEAN CORPUSCULAR VOLUME 92 fl (80-97); MONOCYTES % (AUTO) 9.5 % (3-13); RED BLOOD COUNT 2.65 10^6/uL (3.72-5.28); RED CELL DISTRIBUTION WIDTH 14.3 % (11.5-14.0); SEGMENTED NEUTROPHILS % (AUTO) 60.5 % (42-78); WHITE BLOOD COUNT 6.8 10^3/uL (4.0-10.5)
[2017-03-13 18:01] LABS: ALANINE AMINOTRANSFERASE 36 U/L (9-52); ALBUMIN 3.2 g/dL (3.5-5.0); ALKALINE PHOSPHATASE 86 U/L (38-126); ANION GAP 6 (5-19); ASPARTATE AMINO TRANSFERASE 22 U/L (14-36); BILIRUBIN,DIRECT 0.3 mg/dL (0.0-0.4); BILIRUBIN,TOTAL 0.3 mg/dL (0.2-1.3); BLOOD UREA NITROGEN 22 mg/dL (7-20); CALCIUM 9.7 mg/dL (8.4-10.2); CARBON DIOXIDE 25 mmol/L (22-30); CHLORIDE 111 mmol/L (98-107); CREATINE KINASE 117 U/L (30-135); CREATININE RESULT 0.89 mg/dL (0.52-1.25); GLUCOSE 90 mg/dL (75-110); MAGNESIUM 2.2 mg/dL (1.6-2.3); POTASSIUM 4.3 mmol/L (3.6-5.0); SODIUM 142.2 mmol/L (137-145); TOTAL PROTEIN 5.6 g/dL (6.3-8.2)
[2017-03-13 18:13] LABS: CREATINE KINASE MB 2.54 ng/mL (<4.55)
[2017-03-13 18:14] LABS: TROPONIN I < 0.012 ng/mL
[2017-03-13 19:57] VITALS: BP 144/80
--- NOTE | 2017-03-13 21:15 | EKG REPORT ---
SEVERITY:- NORMAL ECG - SINUS RHYTHM : Confirmed by: Lizeth Kelly 13-Mar-2017 21:15:06
== END 2017-03-13 19:57 | disposition home or self-care (01) ==
LOC: ER 15:59
DX: T40.601A Poisoning by unspecified narcotics, accidental (unintentional), initial encounter (principal); D64.9 Anemia, unspecified; R53.1 Weakness; W19.XXXA Unspecified fall, initial encounter; R41.82 Altered mental status, unspecified; Z79.899 Other long term (current) drug therapy; F17.210 Nicotine dependence, cigarettes, uncomplicated
CPT/HCPCS: 93005; 99291; 51701; 96374; 36415; 87040; 82553; 82550; 83735; 85025; 82272; 80053; 81001; 84484; 83605; 71010; 93010; J2310; J7030

== ENCOUNTER → 2017-04-12 | Outpatient (CLI) | payer MEDICARE, MEDICAID ==
[2017-04-14 16:12] LABS: HEMATOCRIT 26.5 % (36.0-47.0); HEMOGLOBIN 8.5 g/dL (12.0-15.5); MEAN CORPUSCULAR HEMOGLOBIN 27.7 pg (27.0-33.4); MEAN CORPUSCULAR VOLUME 87 fl (80-97); RED BLOOD COUNT 3.07 10^6/uL (3.72-5.28); RED CELL DISTRIBUTION WIDTH 16.1 % (11.5-14.0); WHITE BLOOD COUNT 8.1 10^3/uL (4.0-10.5)
[2017-04-14 17:00] LABS: ERYTHROCYTE SEDIMENTATION RATE 59 mm/hr (0-30)
== END ==
LOC: OD 15:38
PROVIDERS: ATTEND Specialist
DX: M54.16 Radiculopathy, lumbar region (principal)
CPT/HCPCS: 36415; 85027; 85652

== ENCOUNTER → 2017-05-03 | Outpatient (CLI) | payer MEDICARE, MEDICAID ==
[2017-05-03 18:11] LABS: ABSOLUTE BASOPHILS # (AUTO) 0.1 10^3/uL (0.0-0.2); ABSOLUTE EOSINOPHILS # (AUTO) 0.2 10^3/uL (0.0-0.6); ABSOLUTE MONOCYTES (AUTO) 0.5 10^3/uL (0.1-1.4); ABSOLUTE NEUT (AUTO) 4.4 10^3/uL (1.7-8.2); EOSINOPHILS % (AUTO) 3.4 % (0-6); HEMATOCRIT 28.7 % (36.0-47.0); HEMOGLOBIN 9.1 g/dL (12.0-15.5); HGB HCT DIFFERENCE -1.4; MEAN CORPUSCULAR HEMOGLOBIN 26.7 pg (27.0-33.4); MEAN CORPUSCULAR HGB CONC 31.7 g/dL (32.0-36.0); MEAN CORPUSCULAR VOLUME 84 fl (80-97); MONOCYTES % (AUTO) 7.1 % (3-13); RED BLOOD COUNT 3.41 10^6/uL (3.72-5.28); RED CELL DISTRIBUTION WIDTH 16.8 % (11.5-14.0); SEGMENTED NEUTROPHILS % (AUTO) 60.5 % (42-78); WHITE BLOOD COUNT 7.3 10^3/uL (4.0-10.5)
[2017-05-04 18:03] LABS: ALANINE AMINOTRANSFERASE 14 U/L (9-52); ALBUMIN 3.5 g/dL (3.5-5.0); ALKALINE PHOSPHATASE 87 U/L (38-126); ANION GAP 11 (5-19); ASPARTATE AMINO TRANSFERASE 15 U/L (14-36); BILIRUBIN,DIRECT 0.3 mg/dL (0.0-0.4); BILIRUBIN,TOTAL 0.3 mg/dL (0.2-1.3); BLOOD UREA NITROGEN 14 mg/dL (7-20); CALCIUM 9.3 mg/dL (8.4-10.2); CARBON DIOXIDE 25 mmol/L (22-30); CHLORIDE 110 mmol/L (98-107); CREATININE RESULT 0.85 mg/dL (0.52-1.25); GLUCOSE 62 mg/dL (75-110); POTASSIUM 3.6 mmol/L (3.6-5.0); TOTAL PROTEIN 5.9 g/dL (6.3-8.2)
== END ==
LOC: OD 16:13
PROVIDERS: ATTEND Specialist
DX: M54.16 Radiculopathy, lumbar region (principal); K83.1 Obstruction of bile duct
CPT/HCPCS: 36415; 80053; 85025; 85652

== ENCOUNTER → 2017-07-05 | Outpatient (CLI) | payer MEDICARE, MEDICAID ==
[2017-07-05 12:24] LABS: ABSOLUTE BASOPHILS # (AUTO) 0.1 10^3/uL (0.0-0.2); ABSOLUTE EOSINOPHILS # (AUTO) 0.3 10^3/uL (0.0-0.6); ABSOLUTE LYMPHOCYTES (AUTO) 1.9 10^3/uL (0.5-4.7); ABSOLUTE MONOCYTES (AUTO) 0.4 10^3/uL (0.1-1.4); ABSOLUTE NEUT (AUTO) 3.3 10^3/uL (1.7-8.2); EOSINOPHILS % (AUTO) 4.5 % (0-6); HEMATOCRIT 30.4 % (36.0-47.0); HEMOGLOBIN 9.6 g/dL (12.0-15.5); LYMPHOCYTES % (AUTO) 32.6 % (13-45); MEAN CORPUSCULAR HEMOGLOBIN 25.5 pg (27.0-33.4); MEAN CORPUSCULAR HGB CONC 31.6 g/dL (32.0-36.0); MEAN CORPUSCULAR VOLUME 81 fl (80-97); MONOCYTES % (AUTO) 6.4 % (3-13); PLATELET COUNT 353 10^3/uL (150-450); RED BLOOD COUNT 3.77 10^6/uL (3.72-5.28); RED CELL DISTRIBUTION WIDTH 19.9 % (11.5-14.0); SEGMENTED NEUTROPHILS % (AUTO) 55.5 % (42-78); TOTAL CELLS COUNTED % (AUTO) 100 %; WHITE BLOOD COUNT 5.9 10^3/uL (4.0-10.5)
[2017-07-05 12:40] LABS: IRON(TIBC) 83.9 ug/dL (37-170)
[2017-07-05 13:15] LABS: FERRITIN 8.74 ng/mL (11.1-264.0)
== END ==
LOC: LAB 11:49
PROVIDERS: ATTEND Internal Medicine Gastroenterology
DX: D19.7 Benign neoplasm of mesothelial tissue of other sites (principal); K86.9 Disease of pancreas, unspecified; R10.9 Unspecified abdominal pain
CPT/HCPCS: 36415; 82656; 82728; 83540; 83550; 85025

== ENCOUNTER → 2017-10-12 | Outpatient (CLI) | payer MEDICARE, MEDICAID ==
[2017-10-12 14:17] LABS: ABSOLUTE BASOPHILS # (AUTO) 0.1 10^3/uL (0.0-0.2); ABSOLUTE EOSINOPHILS # (AUTO) 0.3 10^3/uL (0.0-0.6); ABSOLUTE LYMPHOCYTES (AUTO) 1.9 10^3/uL (0.5-4.7); ABSOLUTE MONOCYTES (AUTO) 0.4 10^3/uL (0.1-1.4); ABSOLUTE NEUT (AUTO) 4.6 10^3/uL (1.7-8.2); BASOPHILS % (AUTO) 0.9 % (0-2); EOSINOPHILS % (AUTO) 3.9 % (0-6); HEMATOCRIT 31.8 % (36.0-47.0); HEMOGLOBIN 10.3 g/dL (12.0-15.5); LYMPHOCYTES % (AUTO) 26.4 % (13-45); MEAN CORPUSCULAR HEMOGLOBIN 27.1 pg (27.0-33.4); MEAN CORPUSCULAR HGB CONC 32.3 g/dL (32.0-36.0); MEAN CORPUSCULAR VOLUME 84 fl (80-97); MONOCYTES % (AUTO) 5.8 % (3-13); PLATELET COUNT 418 10^3/uL (150-450); RED CELL DISTRIBUTION WIDTH 16.4 % (11.5-14.0); TOTAL CELLS COUNTED % (AUTO) 100 %; WHITE BLOOD COUNT 7.3 10^3/uL (4.0-10.5)
== END ==
LOC: OD 12:46
PROVIDERS: ATTEND Nurse Practitioner
DX: D64.9 Anemia, unspecified (principal)
CPT/HCPCS: 36415; 85025

== ENCOUNTER → 2017-12-21 | Outpatient (CLI) | payer MEDICARE, MEDICAID ==
[2017-12-21 17:59] LABS: ABSOLUTE BASOPHILS # (AUTO) 0.1 10^3/uL (0.0-0.2); ABSOLUTE EOSINOPHILS # (AUTO) 0.3 10^3/uL (0.0-0.6); ABSOLUTE LYMPHOCYTES (AUTO) 2.6 10^3/uL (0.5-4.7); ABSOLUTE MONOCYTES (AUTO) 0.8 10^3/uL (0.1-1.4); ABSOLUTE NEUT (AUTO) 7.8 10^3/uL (1.7-8.2); BASOPHILS % (AUTO) 0.7 % (0-2); EOSINOPHILS % (AUTO) 2.5 % (0-6); HEMATOCRIT 31.2 % (36.0-47.0); LYMPHOCYTES % (AUTO) 22.5 % (13-45); MEAN CORPUSCULAR HEMOGLOBIN 26.8 pg (27.0-33.4); MEAN CORPUSCULAR VOLUME 84 fl (80-97); MONOCYTES % (AUTO) 6.9 % (3-13); PLATELET COUNT 451 10^3/uL (150-450); RED BLOOD COUNT 3.73 10^6/uL (3.72-5.28); RED CELL DISTRIBUTION WIDTH 16.9 % (11.5-14.0); SEGMENTED NEUTROPHILS % (AUTO) 67.4 % (42-78); TOTAL CELLS COUNTED % (AUTO) 100 %; WHITE BLOOD COUNT 11.6 10^3/uL (4.0-10.5)
== END ==
LOC: OD 16:56
PROVIDERS: ATTEND Nurse Practitioner
DX: D64.9 Anemia, unspecified (principal)
CPT/HCPCS: 36415; 85025

== ENCOUNTER 2018-12-10 21:38 | Emergency (ER) | payer MEDICAID, MEDICARE ==
[2018-12-10] MEDS ORDERED: NORMAL SALINE 1000 ML 1,000 ML IV ONE ×2 (22:00→22:43)
--- NOTE | 2018-12-10 22:09 | ER Document Report ---
ED General - General Stated Complaint: GENERALIZED WEAKNESS WITH CONFUSION Time Seen by Provider: 12/10/18 21:53 Primary Care Provider: LILA PATTERSON NP [Primary Care Provider] - Follow up as needed Notes: Patient is a 63-year-old female that comes emergency department for chief complaint of generalized weakness. She states that when she tries to stand her leg starts trembling and shaking and she is too weak to stand. She states she has been scooting around her house for the past 3 days. She denies chest pain or dizziness but states she felt like it feels like "palpitations" in her chest intermittently. She also reports she is having difficulty keeping anything down recently, she has a history of chronic abdominal pain and pancreatitis. She has had a cholecystectomy. She is medicated for hypertension, anxiety/depression. She denies any cardiac history. She denies fever or chills. TRAVEL OUTSIDE OF THE [place] IN LAST 30 DAYS: No - Related Data Allergies/Adverse Reactions: No Known Allergies Allergy (Verified 01/11/17 10:27) Past Medical History - General Information source: Patient - Social History Smoking Status: Current Every Day Smoker Frequency of alcohol use: None Drug Abuse: None Lives with: Alone Family History: None - Past Medical History Cardiac Medical History: Denies: Hx Coronary Artery Disease, Hx Heart Attack, Hx Hypertension Pulmonary Medical History: Reports: Hx COPD - questionable Denies: Hx Asthma, Hx Bronchitis, Hx Pneumonia Neurological Medical History: Denies: Hx Cerebrovascular Accident, Hx Seizures Renal/ Medical History: Denies: Hx Peritoneal Dialysis GI Medical History: Reports: Hx Pancreatitis Musculoskeletal Medical History: Reports Hx Arthritis - generalized , Reports Hx Musculoskeletal Deformity Psychiatric Medical History: Reports: Hx Anxiety Past Surgical History: Reports: Hx Cholecystectomy, Hx Orthopedic Surgery - astrid wrists, ankle, Hx Tonsillectomy, Hx Tubal Ligation - Immunizations Hx Diphtheria, Pertussis, Tetanus Vaccination: Yes Review of Systems - Review of Systems Constitutional: See HPI EENT: No symptoms reported Cardiovascular: See HPI Respiratory: No symptoms reported Gastrointestinal: No symptoms reported Genitourinary: No symptoms reported Female Genitourinary: No symptoms reported Musculoskeletal: No symptoms reported Skin: No symptoms reported Hematologic/Lymphatic: No symptoms reported Neurological/Psychological: See HPI Physical Exam - Vital signs Vitals: Pulse Ox 98 12/10/18 21:40 - Notes Notes: GENERAL: Disheveled and pale but alert and not in distress HEAD: Normocephalic, atraumatic. EYES: Pupils equal, round, and reactive to light. Extraocular movements intact. ENT: Oral mucosa moist, tongue midline. Oropharynx unremarkable. Airway patent. NECK: Full range of motion. Supple. Trachea midline. LUNGS: Clear to auscultation bilaterally, no wheezes, rales, or rhonchi. No respiratory distress. HEART: Regular rate and rhythm. No murmur ABDOMEN: Mild generalized abdominal tenderness without guarding or rigidity. No distention. GENITOURINARY: Deferred EXTREMITIES: Moves all 4 extremities spontaneously. No edema, normal radial and dorsalis pedis pulses bilaterally. No cyanosis. BACK: no cervical, thoracic, lumbar midline tenderness. No saddle anesthesia, normal distal neurovascular exam. Moves all extremities in full range of motion. NEUROLOGICAL: Alert and oriented x3. Normal speech. Cranial nerves II through XII grossly intact. PSYCH: Normal affect, normal mood. SKIN: Slightly pale. Scattered abrasions over the lower extremities with no open wounds at this time. Course - Re-evaluation Re-evalutation: On initial evaluation patient is hypotensive in the 70s systolic. Immediately placed 2 peripheral IVs, started IV fluid resuscitation. She did respond well, first in the 80s, in the 90s, now she is 102/62 with map of 74. She is denying chest pain but states she feels palpitations intermittently and feels incredibly weak. CBC shows leukocytosis at 16,000 with no bandemia. No fever. Abdomen has only very mild generalized tenderness. Chemistry is very concerning with new onset acute renal failure, previous creatinine is 0.8, current creatinine is greater than 6. GFR is only 7 today. Potassium is 3.3. BUN is 66 and bicarbonate is 19. Chest x-ray is unremarkable. Troponin is 3.5. EKG shows no T wave inversions or ST segment changes in consecutive leads, patient denies any current chest symptoms. Suspect troponin is elevated secondary to hypotension and renal f ailure, however she does meet NSTEMI criteria, and with a creatinine greater than 2 with positive troponin she does not meet criteria to stay at this facility. She will require transfer. Giving additional IV fluids, will begin heparin in the setting of renal failure. Discussed with Dr. Abraham. Discussed with patient, she requests [facility]. Spoke with Dr. Jose, hospitalist, patient accepted for transfer. 12/11/18 04:08 Patient has been evaluated twice more. She has not had any chest pain. She is sleeping now but easily arousable. Her blood pressure is currently 107/61 with a map of 73. Repeat troponin without any notable change at 3.5. 12/11/18 04:45 EMS team is here, patient reevaluated again at bedside, no significant change from prior, stable for transport. - Vital Signs Vital signs: Temp Pulse Resp BP Pulse Ox 98.7 F 13 90/53 L 92 12/10/18 21:41 12/11/18 04:16 12/11/18 04:16 12/11/18 02:16 - Laboratory Result Diagrams: 12/10/18 21:45 12/10/18 21:45 Laboratory results interpreted by me: 12/10/18 12/10/18 12/10/18 21:45 21:45 21:45 WBC 16.2 H RBC 3.26 L Hgb 9.3 L Hct 28.6 L RDW 15.4 H Plt Count 465 H Seg Neutrophils % 82.7 H Lymphocytes % 9.2 L Absolute Neutrophils 13.4 H PT 15.5 H Sodium 136.8 L Potassium 3.3 L Carbon Dioxide 19 L BUN 62 H Creatinine 6.05 H Est GFR ( Amer) 8 L Est GFR (Non-Af Amer) 7 L Total Bilirubin 2.4 H Direct Bilirubin 2.4 H Creatine Kinase 365 H Total Protein 5.6 L Albumin 3.1 L Urine Ketones Urine Bilirubin 12/10/18 22:10 WBC RBC Hgb Hct RDW Plt Count Seg Neutrophils % Lymphocytes % Absolute Neutrophils PT Sodium Potassium Carbon Dioxide BUN Creatinine Est GFR ( Amer) Est GFR (Non-Af Amer) Total Bilirubin Direct Bilirubin Creatine Kinase Total Protein Albumin Urine Ketones TRACE H Urine Bilirubin SMALL H - EKG Interpretation by Me Additional EKG results interpreted by me: EKG shows sinus rhythm at a rate of 91, no T wave inversions or ST segment changes in consecutive leads, borderline axis but no overt left axis deviation. QTc is 488. Critical Care Note - Critical Care Note Total time excluding time spent on procedures (mins): 40 - Hypotension, acute renal failure, NSTEMI Comments: Please allow 40 minutes of critical care time for evaluation and management of patient with hypotension requiring IV fluid resuscitation, acute renal failure, and NSTEMI. Time spent evaluating patient on multiple re-evaluations, interpr etation of labs, treatments including additional IV fluids and heparin, time spent in consultation, transfer to tertiary care. Discharge - Discharge Clinical Impression: NSTEMI (non-ST elevated myocardial infarction) Acute renal failure Qualifiers: Acute renal failure type: unspecified Qualified Code(s): N17.9 - Acute kidney failure, unspecified Hypotension Qualifiers: Hypotension type: unspecified hypotension type Qualified Code(s): I95.9 - Hypotension, unspecified Condition: Fair Disposition: [facility] Referrals: LILA PATTERSON NP [Primary Care Provider] - Follow up as needed
[2018-12-10 22:17] LABS: ABSOLUTE BASOPHILS # (AUTO) 0.1 10^3/uL (0.0-0.2); ABSOLUTE EOSINOPHILS # (AUTO) 0.2 10^3/uL (0.0-0.6); ABSOLUTE LYMPHOCYTES (AUTO) 1.5 10^3/uL (0.5-4.7); ABSOLUTE MONOCYTES (AUTO) 1.1 10^3/uL (0.1-1.4); ABSOLUTE NEUT (AUTO) 13.4 10^3/uL (1.7-8.2); BASOPHILS % (AUTO) 0.5 % (0-2); EOSINOPHILS % (AUTO) 1.1 % (0-6); HEMATOCRIT 28.6 % (36.0-47.0); HEMOGLOBIN 9.3 g/dL (12.0-15.5); LYMPHOCYTES % (AUTO) 9.2 % (13-45); MEAN CORPUSCULAR HEMOGLOBIN 28.4 pg (27.0-33.4); MEAN CORPUSCULAR HGB CONC 32.3 g/dL (32.0-36.0); MEAN CORPUSCULAR VOLUME 88 fl (80-97); MONOCYTES % (AUTO) 6.5 % (3-13); PLATELET COUNT 465 10^3/uL (150-450); RED BLOOD COUNT 3.26 10^6/uL (3.72-5.28); RED CELL DISTRIBUTION WIDTH 15.4 % (11.5-14.0); SEGMENTED NEUTROPHILS % (AUTO) 82.7 % (42-78); TOTAL CELLS COUNTED % (AUTO) 100 %; WHITE BLOOD COUNT 16.2 10^3/uL (4.0-10.5)
[2018-12-10 22:33] LABS: APPEARANCE,URINE SLIGHTLY-CLOUDY; BILIRUBIN,URINE SMALL (NEGATIVE); COLOR,URINE AMBER; GLUCOSE, URINE NEGATIVE (NEGATIVE); KETONES,URINE TRACE mg/dL (NEGATIVE); LEUKOCYTE ESTERASE,URINE NEGATIVE (NEGATIVE); NITRITE,URINE NEGATIVE (NEGATIVE); PROTEIN,URINE NEGATIVE (NEGATIVE); URINE SPECIFIC GRAVITY 1.024; UROBILINOGEN,URINE NEGATIVE mg/dL (<2.0)
[2018-12-10 22:42] LABS: ALANINE AMINOTRANSFERASE 17 U/L (9-52); ALBUMIN 3.1 g/dL (3.5-5.0); ALKALINE PHOSPHATASE 51 U/L (38-126); ANION GAP 19 (5-19); ASPARTATE AMINO TRANSFERASE 35 U/L (14-36); BILIRUBIN,DIRECT 2.4 mg/dL (0.0-0.4); BILIRUBIN,TOTAL 2.4 mg/dL (0.2-1.3); BLOOD UREA NITROGEN 62 mg/dL (7-20); CALCIUM 8.8 mg/dL (8.4-10.2); CARBON DIOXIDE 19 mmol/L (22-30); CHLORIDE 99 mmol/L (98-107); CREATINE KINASE 365 U/L (30-135); GLUCOSE 78 mg/dL (75-110); LIPASE 30.7 U/L (23-300); POTASSIUM 3.3 mmol/L (3.6-5.0); SODIUM 136.8 mmol/L (137-145); TOTAL PROTEIN 5.6 g/dL (6.3-8.2)
--- NOTE | 2018-12-10 22:50 | RADIOLOGY REPORT (SQ) ---
EXAM DESCRIPTION: XR CHEST 1 VIEW COMPLETED DATE/TME: 12/10/2018 22:01 CLINICAL HISTORY: 63 years, Female, hypotension COMPARISON: 03/13/2017 chest NUMBER OF VIEWS: 1 TECHNIQUE: Portable chest LIMITATIONS: None. FINDINGS: Heart size is normal. Osteopenia. Lungs are hyperinflated but clear. No pneumothorax IMPRESSION: Underlying hyperinflation. Lungs are clear copyright 2010 [employer]- All Rights Reserved
[2018-12-10] MEDS ORDERED: HEPARIN SOD (PORCINE) 1,000 UNIT/ML 10 ML VIAL IV ONE (23:34)
[2018-12-10] MEDS ORDERED: HEPARIN SODIUM,PORCINE/D5W 25,000 UNIT/250 ML RTUINJ IV PRN (23:34)
[2018-12-10] MEDS ORDERED: NORMAL SALINE 1000 ML 1,000 ML IV PRN (23:36)
[2018-12-10 23:56] LABS: INTERNATIONAL RATION (INR) 1.22; PROTHROMBIN TIME 15.5 SEC (11.4-15.4)
[2018-12-11] MEDS ORDERED: HEPARIN SOD (PORCINE) 1,000 UNIT/ML 10 ML VIAL IV PRN (02:36)
[2018-12-11 04:28] VITALS: BP 90/53
[2018-12-11] MEDS ORDERED: FENTANYL CITRATE INJ/PF 100 MCG/2 ML AMPUL IV ONE (04:44)
--- NOTE | 2018-12-12 00:36 | EKG REPORT ---
SEVERITY:- BORDERLINE ECG - SINUS RHYTHM BORDERLINE PROLONGED QT INTERVAL : Confirmed by: Lizeth Kelly 12-Dec-2018 00:36:10
== END 2018-12-11 05:02 | disposition short-term general hospital (02) ==
LOC: ER 21:38
DX: I21.4 Non-ST elevation (NSTEMI) myocardial infarction (principal); N17.9 Acute kidney failure, unspecified; I95.9 Hypotension, unspecified; R53.1 Weakness; R10.817 Generalized abdominal tenderness; S80.812A Abrasion, left lower leg, initial encounter; S80.811A Abrasion, right lower leg, initial encounter; X58.XXXA Exposure to other specified factors, initial encounter; I10 Essential (primary) hypertension; F17.200 Nicotine dependence, unspecified, uncomplicated; F41.9 Anxiety disorder, unspecified; F32.9 Major depressive disorder, single episode, unspecified; Z79.899 Other long term (current) drug therapy; Z87.19 Personal history of other diseases of the digestive system; Z90.49 Acquired absence of other specified parts of digestive tract
CPT/HCPCS: 93005; 99291; 96365; 96366; 36415; 82962; 82550; 83690; 85025; 85610; 85730; 80053; 81001; 84484; 71045; 93010; J1644 ×2; J3010; J7030 ×2

== ENCOUNTER 2019-03-05 15:59 | Emergency (ER) | payer MEDICARE, MEDICAID ==
[2019-03-05] MEDS ORDERED: NORMAL SALINE 1000 ML 1,000 ML IV ONE ×2 (16:32→20:35)
--- NOTE | 2019-03-05 16:42 | ER Document Report ---
ED General - General Chief Complaint: Low Blood Pressure Stated Complaint: DEHYDRATION Time Seen by Provider: 03/05/19 16:23 Primary Care Provider: IRIS RICHARDSON NP [Primary Care Provider] - Follow up as needed TRAVEL OUTSIDE OF THE [place] IN LAST 30 DAYS: No - HPI Notes: Patient is a 63-year-old female who presented to the emergency department for evaluation of dizziness, nausea, vomiting, diarrhea. She says she has chronic nausea and vomiting associated with her chronic pancreatitis. She states she has diarrhea nearly every time she goes to the bathroom, this has been since her cholecystectomy. Patient actually went to her primary care provider, Dr. Richardson, for evaluation of heartburn. When she was there she was found to be hypotensive and sent here to the emergency department for evaluation. - Related Data Allergies/Adverse Reactions: No Known Allergies Allergy (Verified 01/11/17 10:27) Home Medications: Bill Pap, Ativan, Neurontin Past Medical History - General Information source: Patient - Social History Smoking Status: Current Every Day Smoker Frequency of alcohol use: None Drug Abuse: None Family History: None Patient has suicidal ideation: No Patient has homicidal ideation: No - Past Medical History Cardiac Medical History: Denies: Hx Coronary Artery Disease, Hx Heart Attack, Hx Hypertension Pulmonary Medical History: Reports: Hx COPD - questionable Denies: Hx Asthma, Hx Bronchitis, Hx Pneumonia Neurological Medical History: Denies: Hx Cerebrovascular Accident, Hx Seizures Renal/ Medical History: Denies: Hx Peritoneal Dialysis GI Medical History: Reports: Hx Pancreatitis - Chronic Musculoskeletal Medical History: Reports Hx Arthritis - generalized , Reports Hx Musculoskeletal Deformity Psychiatric Medical History: Reports: Hx Anxiety Past Surgical History: Reports: Hx Cholecystectomy, Hx Orthopedic Surgery - astrid wrists, ankle, Hx Tonsillectomy, Hx Tubal Ligation - Immunizations Hx Diphtheria, Pertussis, Tetanus Vaccination: Yes Review of Systems - Review of Systems Constitutional: Malaise, Weakness EENT: No symptoms reported Cardiovascular: No symptoms reported Respiratory: No symptoms reported Gastrointestinal: See HPI Genitourinary: No symptoms reported Musculoskeletal: No symptoms reported Skin: No symptoms reported Neurological/Psychological: No symptoms reported Physical Exam - Vital signs Vitals: Temp Pulse Resp BP Pulse Ox 97.9 F 96 14 109/84 100 03/05/19 16:15 03/05/19 16:15 03/05/19 16:15 03/05/19 16:15 03/05/19 16:15 - Notes Notes: Vital signs reviewed, please refer to chart. Head is normocephalic, atraumatic. Pupils equal round, reactive to light. Neck is supple without meningismus. Heart is regular rate and rhythm. Lungs are clear to auscultation bilaterally. Abdomen is soft, nontender, normoactive bowel sounds throughout. Extremities without cyanosis, clubbing. Posterior calves are nontender. Peripheral pulses are equal. Skin is warm and dry. Patient is awake, alert, neurological exam is nonfocal. Course - Re-evaluation Re-evalutation: 03/05/19 20:44 Patient presents emergency department for evaluation. She had nausea and vomiting, which had improved. She denies any nausea at this time. She has some diarrhea, but had no diarrhea over the course of her stay while here in the emergency department. The patient remained stable. Her blood pressure was occa sionally in the 80s systolic, but this was only when she was sleeping. Upon awaking and improved. The patient had orthostatics which were negative. I did review her lab work. She had a mild hyperkalemia, but I did give her 2 L of fluid. Her creatinine was mildly elevated as well, but again I do believe this is all secondary to dehydration from her diarrhea. She had no diarrhea while here. The patient is on an antihypertensive. She is told she needs to not take that for the next 3 days. She is to follow-up with her primary care provider by the end of the week. She voiced understanding to this. Otherwise she is to return to the ED with worsening or new concerning symptoms of any sort. - Vital Signs Vital signs: Temp Pulse Resp BP Pulse Ox 97.9 F 82 11 L 89/61 L 98 03/05/19 20:05 03/05/19 20:05 03/05/19 20:05 03/05/19 20:05 03/05/19 20:05 - Laboratory Result Diagrams: 03/05/19 18:35 03/05/19 18:35 Laboratory results interpreted by me: 03/05/19 03/05/19 03/05/19 18:35 18:35 18:35 WBC 12.0 H RBC 3.45 L Hgb 9.7 L Hct 30.6 L MCHC 31.7 L RDW 17.9 H Plt Count 503 H Absolute Neuts (auto) 9.3 H Potassium 5.2 H Chloride 109 H BUN 78 H Creatinine 1.47 H Est GFR ( Amer) 43 L Est GFR (MDRD) Non-Af 36 L Magnesium 2.8 H Direct Bilirubin 0.7 H AST 11 L Total Protein 5.4 L Albumin 2.9 L Urine Ketones TRACE H Ur Leukocyte Esterase MODERATE H Discharge - Discharge Clinical Impression: Abnormal renal function, Dehydration Hypotension Qualifiers: Hypotension type: unspecified hypotension type Qualified Code(s): I95.9 - Hypotension, unspecified Condition: Stable Disposition: HOME, SELF-CARE Instructions: Hypotension ([facility]) Additional Instructions: Rest, stay well-hydrated. Do not take your blood pressure medications at home for the next 3 days. Please follow-up with your primary care provider by the end of the week. Your renal function was mildly abnormal, but this can be followed up as an outpatient. If you develop worsening or new concerning symptoms of any sort, return immediately to the emergency department for evaluation. Referrals: IRIS RICHARDSON NP [Primary Care Provider] - Follow up as needed
[2019-03-05 18:56] LABS: ABSOLUTE BASOPHILS # (AUTO) 0.1 10^3/uL (0.0-0.2); ABSOLUTE EOSINOPHILS # (AUTO) 0.3 10^3/uL (0.0-0.6); ABSOLUTE LYMPHOCYTES (AUTO) 1.7 10^3/uL (0.5-4.7); ABSOLUTE MONOCYTES (AUTO) 0.7 10^3/uL (0.1-1.4); ABSOLUTE NEUT (AUTO) 9.3 10^3/uL (1.7-8.2); BASOPHILS % (AUTO) 0.5 % (0-2); EOSINOPHILS % (AUTO) 2.5 % (0-6); HEMATOCRIT 30.6 % (36.0-47.0); HEMOGLOBIN 9.7 g/dL (12.0-15.5); LYMPHOCYTES % (AUTO) 13.8 % (13-45); MEAN CORPUSCULAR HEMOGLOBIN 28.1 pg (27.0-33.4); MEAN CORPUSCULAR HGB CONC 31.7 g/dL (32.0-36.0); MEAN CORPUSCULAR VOLUME 89 fl (80-97); MONOCYTES % (AUTO) 6.1 % (3-13); PLATELET COUNT 503 10^3/uL (150-450); RED BLOOD COUNT 3.45 10^6/uL (3.72-5.28); RED CELL DISTRIBUTION WIDTH 17.9 % (11.5-14.0); SEGMENTED NEUTROPHILS % (AUTO) 77.1 % (42-78); TOTAL CELLS COUNTED % (AUTO) 100 %
[2019-03-05 19:16] LABS: ALBUMIN 2.9 g/dL (3.5-5.0); ALKALINE PHOSPHATASE 74 U/L (38-126); ANION GAP 10 (5-19); ASPARTATE AMINO TRANSFERASE 11 U/L (14-36); BILIRUBIN,DIRECT 0.7 mg/dL (0.0-0.4); BILIRUBIN,TOTAL 0.7 mg/dL (0.2-1.3); BLOOD UREA NITROGEN 78 mg/dL (7-20); CALCIUM 8.7 mg/dL (8.4-10.2); CARBON DIOXIDE 22 mmol/L (22-30); CHLORIDE 109 mmol/L (98-107); GLUCOSE 81 mg/dL (75-110); POTASSIUM 5.2 mmol/L (3.6-5.0); TOTAL PROTEIN 5.4 g/dL (6.3-8.2)
[2019-03-05 19:21] LABS: APPEARANCE,URINE CLOUDY; BILIRUBIN,URINE NEGATIVE (NEGATIVE); COLOR,URINE YELLOW; GLUCOSE, URINE NEGATIVE (NEGATIVE); KETONES,URINE TRACE mg/dL (NEGATIVE); LEUKOCYTE ESTERASE,URINE MODERATE (NEGATIVE); NITRITE,URINE NEGATIVE (NEGATIVE); PROTEIN,URINE NEGATIVE (NEGATIVE); URINE SPECIFIC GRAVITY 1.019; UROBILINOGEN,URINE NEGATIVE mg/dL (<2.0)
[2019-03-05 19:25] LABS: URINE AMPHETAMINES SCREEN NEGATIVE; URINE BARBITURATES SCREEN NEGATIVE; URINE BENZODIAZEPINES SCREEN NEGATIVE; URINE COCAINE SCREEN NEGATIVE; URINE MARIJUANA (THC) SCREEN NEGATIVE; URINE METHADONE SCREEN NEGATIVE; URINE PHENCYCLIDINE SCREEN NEGATIVE
[2019-03-05 22:12] VITALS: BP 120/87
== END 2019-03-05 22:12 | disposition home or self-care (01) ==
LOC: ER 15:59
DX: I95.9 Hypotension, unspecified (principal); R94.4 Abnormal results of kidney function studies; E86.0 Dehydration; R42 Dizziness and giddiness; R11.2 Nausea with vomiting, unspecified; R19.7 Diarrhea, unspecified; K86.1 Other chronic pancreatitis; R53.81 Other malaise; R53.1 Weakness; F17.200 Nicotine dependence, unspecified, uncomplicated; J44.9 Chronic obstructive pulmonary disease, unspecified
CPT/HCPCS: 99283; 96360; 96361; 36415; 83735; 85025; 80053; 81001; 80307; J7030

== ENCOUNTER 2019-06-01 16:35 | Inpatient (IN) | payer MEDICAID, MEDICARE ==
--- NOTE | 2019-06-01 18:38 | ER Document Report ---
ED Medical Screen (RME) - General Chief Complaint: Weakness Stated Complaint: FLU LIKE SYMPTOMS Time Seen by Provider: 06/01/19 18:30 Primary Care Provider: IRIS APARICIO NP [Primary Care Provider] - Follow up as needed Mode of Arrival: Medic Information source: Patient Notes: 63-year-old female presented to ED for cough weakness very sick unable to do anything for self. She states she has a bedsore and her cat recently and she is just not been feeling good enough to do anything recently. She states she did end up in the hospital in November for similar symptoms and they told her that if she had not come in when she did she would have . Patient is alert and oriented able answer questions. I have greeted and performed a rapid initial assessment of this patient. A comprehensive ED assessment and evaluation of the patient, analysis of test results and completion of medical decision making process will be conducted by an additional ED providers. TRAVEL OUTSIDE OF THE [place] IN LAST 30 DAYS: No - Related Data Allergies/Adverse Reactions: No Known Allergies Allergy (Verified 01/11/17 10:27) Past Medical History - Past Medical History Cardiac Medical History: Denies: Hx Coronary Artery Disease, Hx Heart Attack, Hx Hypertension Pulmonary Medical History: Reports: Hx Bronchitis, Hx COPD - questionable Denies: Hx Asthma, Hx Pneumonia Neurological Medical History: Denies: Hx Cerebrovascular Accident, Hx Seizures Renal/ Medical History: Denies: Hx Peritoneal Dialysis GI Medical History: Reports: Hx Pancreatitis - Chronic Musculoskeltal Medical History: Reports Hx Arthritis - generalized , Reports Hx Musculoskeletal Deformity Psychiatric Medical History: Reports: Hx Anxiety Past Surgical History: Reports: Hx Cholecystectomy, Hx Orthopedic Surgery - astrid wrists, ankle, Hx Tonsillectomy, Hx Tubal Ligation - Immunizations Hx Diphtheria, Pertussis, Tetanus Vaccination: Yes Doctor's Discharge - Discharge Referrals: IRIS APARICIO NP [Primary Care Provider] - Follow up as needed
--- NOTE | 2019-06-01 19:06 | RADIOLOGY REPORT (SQ) ---
EXAM DESCRIPTION: CHEST SINGLE VIEW COMPLETED DATE/TIME: 06/01/2019 6:56 pm REASON FOR STUDY: tired and weak COMPARISON: 12/10/2018 EXAM PARAMETERS: NUMBER OF VIEWS: One view. TECHNIQUE: Single frontal radiographic view of the chest acquired. RADIATION DOSE: NA LIMITATIONS: None. FINDINGS: LUNGS AND PLEURA: Hyper aeration. No opacities, masses or pneumothorax. No pleural effusi on. MEDIASTINUM AND HILAR STRUCTURES: No masses. Contour normal. HEART AND VASCULAR STRUCTURES: Heart normal in size. Normal vasculature. BONES: No acute findings. HARDWARE: None in the chest. OTHER: No other significant finding. IMPRESSION: No evidence of acute cardiopulmonary abnormality. Background of chronic emphysematous c hange. TECHNICAL DOCUMENTATION: JOB ID: [id number] [employer]- All Rights Reserved Reading location - IP/workstation name: [email or web address]
[2019-06-01 19:32] LABS: MEAN CORPUSCULAR HGB CONC 28.9 g/dL (32.0-36.0); MEAN CORPUSCULAR VOLUME 83 fl (80-97); RED BLOOD COUNT 1.71 10^6/uL (3.72-5.28); RED CELL DISTRIBUTION WIDTH 19.4 % (11.5-14.0); WHITE BLOOD COUNT 17.2 10^3/uL (4.0-10.5)
[2019-06-01 19:34] LABS: ALBUMIN 3.1 g/dL (3.5-5.0); ALKALINE PHOSPHATASE 85 U/L (38-126); ANION GAP 12 (5-19); ASPARTATE AMINO TRANSFERASE 13 U/L (14-36); BILIRUBIN,DIRECT 0.4 mg/dL (0.0-0.4); BILIRUBIN,TOTAL 0.5 mg/dL (0.2-1.3); BLOOD UREA NITROGEN 30 mg/dL (7-20); CALCIUM 8.5 mg/dL (8.4-10.2); CARBON DIOXIDE 23 mmol/L (22-30); CHLORIDE 107 mmol/L (98-107); POTASSIUM 3.4 mmol/L (3.6-5.0); TOTAL PROTEIN 5.9 g/dL (6.3-8.2)
[2019-06-01 19:42] LABS: HEMATOCRIT 14.1 % (36.0-47.0); PLATELET COUNT 1142 10^3/uL (150-450)
[2019-06-01 19:55] LABS: GLUCOSE 69 mg/dL (75-110)
[2019-06-01 20:00] LABS: APPEARANCE,URINE SLIGHTLY-CLOUDY; BILIRUBIN,URINE NEGATIVE (NEGATIVE); COLOR,URINE YELLOW; GLUCOSE, URINE NEGATIVE (NEGATIVE); KETONES,URINE TRACE mg/dL (NEGATIVE); LEUKOCYTE ESTERASE,URINE TRACE (NEGATIVE); NITRITE,URINE NEGATIVE (NEGATIVE); PROTEIN,URINE NEGATIVE (NEGATIVE); URINE SPECIFIC GRAVITY 1.017; UROBILINOGEN,URINE NEGATIVE mg/dL (<2.0)
--- NOTE | 2019-06-01 20:02 | ER Document Report ---
ED General - General Chief Complaint: Weakness Stated Complaint: FLU LIKE SYMPTOMS Time Seen by Provider: 06/01/19 18:30 Primary Care Provider: IRIS APARICIO NP [Primary Care Provider] - Follow up as needed Mode of Arrival: Medic TRAVEL OUTSIDE OF THE [place] IN LAST 30 DAYS: No - Related Data Allergies/Adverse Reactions: No Known Allergies Allergy (Verified 01/11/17 10:27) Past Medical History - General Information source: Patient - Social History Smoking Status: Former Smoker Family History: None Patient has suicidal ideation: No Patient has homicidal ideation: No - Past Medical History Cardiac Medical History: Denies: Hx Coronary Artery Disease, Hx Heart Attack, Hx Hypertension Pulmonary Medical History: Reports: Hx Bronchitis, Hx COPD - questionable Denies: Hx Asthma, Hx Pneumonia Neurological Medical History: Denies: Hx Cerebrovascular Accident, Hx Seizures Renal/ Medical History: Denies: Hx Peritoneal Dialysis GI Medical History: Reports: Hx Pancreatitis - Chronic Musculoskeletal Medical History: Reports Hx Arthritis - generalized , Reports Hx Musculoskeletal Deformity Psychiatric Medical History: Reports: Hx Anxiety Past Surgical History: Reports: Hx Cholecystectomy, Hx Orthopedic Surgery - astrid wrists, ankle, Hx Tonsillectomy, Hx Tubal Ligation - Immunizations Hx Diphtheria, Pertussis, Tetanus Vaccination: Yes Physical Exam - Vital signs Vitals: Resp 15 06/01/19 18:38 Course - Vital Signs Vital signs: Temp Pulse Resp BP Pulse Ox 99 F 89 17 153/91 H 100 06/01/19 23:00 06/01/19 23:00 06/01/19 23:00 06/01/19 23:00 06/01/19 23:00 - Laboratory Result Diagrams: 06/01/19 18:40 06/01/19 18:40 Laboratory results interpreted by me: 06/01/19 06/01/19 06/01/19 18:40 18:40 18:40 WBC 17.2 H RBC 1.71 L Hgb 4.1 L* Hct 14.1 L* MCH 24.0 L MCHC 28.9 L RDW 19.4 H Plt Count 1142 H* Seg Neuts % (Manual) 94 H Lymphocytes % (Manual) 4 L Monocytes % (Manual) 2 L Abs Neuts (Manual) 16.2 H Potassium 3.4 L BUN 30 H Creatinine 1.85 H Est GFR ( Amer) 33 L Est GFR (MDRD) Non-Af 27 L Glucose 69 L AST 13 L Total Protein 5.9 L Albumin 3.1 L Urine Ketones Ur Leukocyte Esterase Crossmatch See Detail 06/01/19 19:32 WBC RBC Hgb Hct MCH MCHC RDW Plt Count Seg Neuts % (Manual) Lymphocytes % (Manual) Monocytes % (Manual) Abs Neuts (Manual) Potassium BUN Creatinine Est GFR ( Amer) Est GFR (MDRD) Non-Af Glucose AST Total Protein Albumin Urine Ketones TRACE H Ur Leukocyte Esterase TRACE H Crossmatch Discharge - Discharge Clinical Impression: Severe anemia, Dehydration, NSTEMI (non-ST elevated myocardial infarction), PUD (peptic ulcer disease) Malnourished Qualifiers: Malnutrition type: protein-calorie malnutrition Protein-calorie malnutrition severity: moderate Qualified Code(s): E44.0 - Moderate protein-calorie malnutrition Leukocytosis Qualifiers: Leukocytosis type: leukemoid reaction Qualified Code(s): D72.823 - Leukemoid reaction Decubitus ulcer Qualifiers: Pressure injury location: sacral region Pressure injury stage: stage 2 Qualified Code(s): L89.152 - Pressure ulcer of sacral region, stage 2 Disposition: ADMITTED INPATIENT Admitting Provider: Xiang (Hospitalist) Unit Admitted: IMCU Referrals: IRIS APARICIO NP [Primary Care Provider] - Follow up as needed
[2019-06-01 20:03] LABS: ABSOLUTE LYMPHOCYTES# (MANUAL) 0.7 10^3/uL (0.5-4.7); ABSOLUTE MONOCYTES # (MANUAL) 0.3 10^3/uL (0.1-1.4); BASOPHILS % (MANUAL) 0 % (0-2); EOSINOPHILS % (MANUAL) 0 % (0-6); LYMPHOCYTES % (MANUAL) 4 % (13-45); MONOCYTES % (MANUAL) 2 % (3-13); NUCLEATED RED BLOOD CELLS 2 /100 WBC (0); SEGMENTED NEUTROPHILS % (MAN) 94 % (42-78); TOTAL CELLS COUNTED 100
[2019-06-01 20:06] LABS: ANISOCYTOSIS 2+; HYPOCHROMASIA 3+; OVALOCYTES SLIGHT; PLATELET COMMENT INCREASED; POLYCHROMASIA SLIGHT; TEAR DROP CELLS SLIGHT
[2019-06-01] MEDS ORDERED: NORMAL SALINE 250 ML IV PRN (20:12)
[2019-06-01] MEDS ORDERED: NORMAL SALINE 1000 ML 1,000 ML IV ONE (20:16)
[2019-06-01 20:56] LABS: INTERNATIONAL RATION (INR) 1.21; PROTHROMBIN TIME 15.4 SEC (11.4-15.4)
[2019-06-01 20:57] LABS: PARTIAL THROMBOPLASTIN TIME 29.3 SEC (23.5-35.8)
--- NOTE | 2019-06-01 22:59 | RADIOLOGY REPORT (SQ) ---
EXAM DESCRIPTION: CT ABDOMEN PELVIS WITH IV CONTRAST COMPLETED DATE/TME: 06/01/2019 21:31 CLINICAL HISTORY: 63 years Female, severe anemia/guiaic positive stool/ Comparison: January 26, 2016 Technique: IV contrast. Coronal and sagittal reformat. This exam was performed according to our departmental dose-optimization program, which includes automated exposure control, adjustment of the mA and/or kV according to patient size and/or use of iterative reconstruction technique. [facility]: Dose Right [facility]: CareDose [facility]: Dose Right [facility]: Teradose 4D [facility]: [employer] LIMITATIONS: None Findings: Cholecystectomy. Small pericardial fluid. Atherosclerotic vascular disease. 1.5 cm diameter common iliac artery. Stable 0.7 cm right adrenal adenoma since 2016. Moderate lumbar levo convexity. 0.3 cm left nephrolithiasis. No hydronephrosis and no hydroureter. L5 transitional vertebral body. Lumbosacral transitional vertebral body. Mild degenerative malalignment of the lumbar spine. Partial resection of posterior elements thrombosed of the lumbar spine. Degenerative disc disease. 0.9 cm focal sclerotic lesion of the right paracentral sacrum increased compared with 0.4 cm measurement in 2016. Stable 0.7 cm sclerotic lesion of the right femoral neck. Focal hepatic steatosis. Chronic mid 1.8 x 1.5 cm and distal 1.7 cm splenic artery aneurysms. No gross evidence of active GI hemorrhage. No ascites.No pneumoperitoneum. No evidence of appendicitis. Appendix not definitively discerned/appendectomy. No bowel obstruction. No evidence of abdominal aortic aneurysm. No gross evidence of thecal sac/cord or nerve root compression. Inferior thorax, liver, pancreas, spleen, adrenals, renal system, gastrointestinal tract, pelvic organs, lymphatics, vasculature, and musculoskeleton appear otherwise unremarkable. IMPRESSION: No acute findings.Chronic mid 1.8 x 1.5 cm and distal 1.7 cm splenic artery aneurysms.
[2019-06-01] MEDS ORDERED: MORPHINE SULFATE 10 MG/ML INJ IV ONE (23:27)
[2019-06-01] MEDS ORDERED: ONDANSETRON HCL INJ/PF 4 MG/2 ML SDV IV ONE (23:28)
[2019-06-01] MEDS ORDERED: PANTOPRAZOLE SODIUM 40 MG VIAL IV ONE (23:35)
[2019-06-01] MEDS ORDERED: FAMOTIDINE 20 MG TABLET PO SCH (23:45)
[2019-06-01] MEDS ORDERED: ACETAMINOPHEN 325 MG TABLET PO PRN (23:52)
[2019-06-01] MEDS ORDERED: MAG HYDROX/AL HYDROX/SIMETH SUSP 30 ML UDCUP PO PRN (23:52)
[2019-06-01] MEDS ORDERED: IPRATROPIUM/ALBUTEROL 0.5-2.5 MG/3 ML AMPUL NEB PRN (23:52)
[2019-06-02] MEDS ORDERED: FAMOTIDINE 20 MG TABLET PO ONE (00:30)
[2019-06-02] MEDS ORDERED: DEXTROSE 40% GEL 15 GM TUBE PO PRN ×2 (00:36)
[2019-06-02] MEDS ORDERED: DEXTROSE 50%-WATER 25 GM/50 ML DISP.SYRIN IV PRN ×2 (00:36)
[2019-06-02] MEDS ORDERED: GLUCAGON,HUMAN RECOMB 1 MG INJ IM PRN (00:36)
[2019-06-02 00:40] LABS: ABSOLUTE RETICS # 0.082 10^6/uL (0.028-0.122); RETICULOCYTE COUNT (AUTO) 4.69 % (0.66-2.85)
[2019-06-02 00:49] LABS: IRON(TIBC) 15.4 ug/dL (37-170)
[2019-06-02 00:59] LABS: URINE AMPHETAMINES SCREEN NEGATIVE; URINE BARBITURATES SCREEN NEGATIVE; URINE BENZODIAZEPINES SCREEN NEGATIVE; URINE COCAINE SCREEN NEGATIVE; URINE MARIJUANA (THC) SCREEN NEGATIVE; URINE METHADONE SCREEN NEGATIVE; URINE PHENCYCLIDINE SCREEN NEGATIVE
[2019-06-02] MEDS: POTASSI CL 20 MEQ/50 ML RIDER 20 MEQ/50 ML RTUPB IV SCH ×4 (01:12→13:33)
[2019-06-02 01:25] LABS: INTERNATIONAL RATION (INR) 1.25; PROTHROMBIN TIME 15.8 SEC (11.4-15.4)
[2019-06-02 02:05] LABS: FOLATE 4.08 ng/mL (>2.76)
[2019-06-02] MEDS ORDERED: IRON SUCROSE COMPLEX INJ/PF 100 MG/5 ML SDV IV ONE (02:48)
[2019-06-02] MEDS: NORMAL SALINE 1000 ML 1,000 ML IV PRN ×3 (02:49→11:49)
[2019-06-02] MEDS ORDERED: INFLUENZA QUAD (6MOS+) 2019-20 VAC 0.5 ML SYR IM ONE (03:47)
[2019-06-02] MEDS ORDERED: MORPHINE SULFATE 10 MG/ML INJ IV PRN (04:46)
[2019-06-02] MEDS ORDERED: PANTOPRAZOLE SODIUM 40 MG VIAL IV PRN (04:47)
[2019-06-02] MEDS ORDERED: PANTOPRAZOLE SODIUM 40 MG VIAL IV ONE (05:00)
[2019-06-02] MEDS: HEPARIN SOD (PORCINE) 5,000 UNIT/ML 1 ML VIAL SUBCUT SCH ×2 (05:22→15:10)
[2019-06-02] MEDS: NORMAL SALINE 100 ML with PANTOPRAZOLE SODIUM 80 MG IV PRN ×4 (05:23→18:08)
--- NOTE | 2019-06-02 06:00 | PDOC H&P ---
History of Present Illness Admission Date/PCP: 06/02/19 00:03 IRIS APARICIO NP Patient complains of: Fatigue History of Present Illness: KYLAH DUNHAM is a 63 year old female with a past medical history of chronic pain syndrome, osteoarthritis and duodenal ulcer with anemia. She presents with fatigue, arthralgias without fever. In the emergency room she is found to have profound anemia with a hemoglobin of 4.1 and acute renal failure. She is ordered 2 units of packed red blood cells and referred to the hospitalist for admission. Patient admits previous episode of duodenal ulcers with anemia but without recent primary care follow-up. She denies bright red blood per rectum. In the emergency room she does have Hemoccult positive stools, thrombocytosis and leukocytosis without fever. Past Medical History Cardiac Medical History: Denies: Coronary Artery Disease, Myocardial Infarction, Hypertension Pulmonary Medical History: Reports: Bronchitis, Chronic Obstructive Pulmonary Disease (COPD) - questionable Denies: Asthma, Pneumonia Neurological Medical History: Denies: Seizures Musculoskeltal Medical History: Reports: Arthritis - generalized Psychiatric Medical History: Reports: Depression, Tobacco Dependency Hematology: Denies: Anemia Past Surgical History Past Surgical History: Reports: Cholecystectomy, Orthopedic Surgery - astrid wrists, ankle, Tonsillectomy, Tubal Ligation Social History Information Source: Patient Smoking Status: Former Smoker Electronic Cigarette use?: No Number of Years Smokin Last Time Smoked: May 13 2019 Frequency of Alcohol Use: None Hx Recreational Drug Use: No Drugs: None Hx Prescription Drug Abuse: No - Advance Directive Resuscitation Status: Full Code Family History Family History: Hypertension. denies: Malignancy Parental Family History Reviewed: Yes Children Family History Reviewed: Yes Sibling(s) Family History Reviewed.: Yes Medication/Allergy Home Medications: Gabapentin [Neurontin 300 mg Capsule] 300 mg PO Q8 #90 capsule 08/04/15 Lipase/Protease/Amylase [Zenpep Dr 40,000 Units Capsule] 1 tab PO MEALS 01/11/17 Lorazepam 1 mg PO PRN PRN 01/11/17 Tizanidine HCl 4 mg PO TID 01/11/17 Allergies/Adverse Reactions: No Known Allergies Allergy (Verified 01/11/17 10:27) Review of Systems Constitutional: PRESENT: as per HPI, fatigue, weakness, weight loss Eyes: ABSENT: visual disturbances Ears: ABSENT: hearing changes Cardiovascular: PRESENT: dyspnea on exertion. ABSENT: chest pain, edema, orthropnea, palpitations Respiratory: ABSENT: cough, hemoptysis Gastrointestinal: PRESENT: as per HPI, abdominal pain, nausea. ABSENT: constipation, diarrhea, hematemesis, hematochezia, vomiting Genitourinary: ABSENT: dysuria, hematuria Musculoskeletal: ABSENT: joint swelling Integumentary: ABSENT: rash, wounds Neurological: ABSENT: abnormal gait, abnormal speech, confusion, dizziness, focal weakness, syncope Psychiatric: ABSENT: anxiety, depression, homidical ideation, suicidal ideation Endocrine: ABSENT: cold intolerance, heat intolerance, polydipsia, polyuria Hematologic/Lymphatic: ABSENT: easy bleeding, easy bruising Physical Exam Vital Signs: Temp Pulse Resp BP Pulse Ox 98.9 F 81 18 118/68 100 06/02/19 05:00 06/02/19 05:00 06/02/19 05:00 06/02/19 05:00 06/02/19 05:00 Intake & Output 05/31/19 06/01/19 06/02/19 11:59 11:59 11:59 Intake Total 340 Balance 340 Weight 60.2 kg General appearance: PRESENT: cooperative, disheveled, mild distress, thin, other - Chronically ill-appearing with temporal wasting and cachexia Head exam: PRESENT: atraumatic, normocephalic Eye exam: PRESENT: conjunctiva pale, EOMI, PERRLA. ABSENT: scleral icterus Ear exam: PRESENT: normal external ear exam Mouth exam: PRESENT: moist, tongue midline Neck exam: ABSENT: carotid bruit, JVD, lymphadenopathy, thyromegaly Respiratory exam: PRESENT: clear to auscultation astrid. ABSENT: rales, rhonchi, wheezes Cardiovascular exam: PRESENT: RRR. ABSENT: diastolic murmur, rubs, systolic murmur Pulses: PRESENT: normal dorsalis pedis pul Vascular exam: PRESENT: normal capillary refill GI/Abdominal exam: PRESENT: normal bowel sounds, soft. ABSENT: distended, guarding, mass, organolmegaly, rebound, tenderness Rectal exam: PRESENT: deferred Extremities exam: PRESENT: full ROM. ABSENT: calf tenderness, clubbing, pedal edema Neurological exam: PRESENT: alert, awake, oriented to person, oriented to place, oriented to time, oriented to situation, CN II-XII grossly intact. ABSENT: motor sensory deficit Psychiatric exam: PRESENT: appropriate affect, normal mood. ABSENT: homicidal ideation, suicidal ideation Skin exam: PRESENT: dry, intact, warm. ABSENT: cyanosis, rash Results Laboratory Results: 06/01/19 18:40 06/01/19 18:40 06/01/19 06/01/19 06/01/19 18:40 18:40 18:40 WBC 17.2 H RBC 1.71 L Hgb 4.1 L* Hct 14.1 L* MCV 83 MCH 24.0 L MCHC 28.9 L RDW 19.4 H Plt Count 1142 H* Seg Neutrophils % Not Reportable Retic Count (auto) Sodium 142.1 Potassium 3.4 L Chloride 107 Carbon Dioxide 23 Anion Gap 12 BUN 30 H Creatinine 1.85 H Est GFR ( Amer) 33 L Glucose 69 L Calcium 8.5 Phosphorus Magnesium Iron TIBC % Saturation Ferritin Total Bilirubin 0.5 AST 13 L Alkaline Phosphatase 85 Total Protein 5.9 L Albumin 3.1 L Lipase 54.0 Vitamin B12 Folate TSH Urine Color Urine Appearance Urine pH Ur Specific [place] Urine Protein Urine Glucose (UA) Urine Ketones Urine Blood Urine Nitrite Ur Leukocyte Esterase Urine WBC (Auto) Urine RBC (Auto) Blood Type A POSITIVE Antibody Screen NEGATIVE 06/01/19 06/01/19 06/01/19 18:40 18:40 18:40 WBC RBC Hgb Hct MCV MCH MCHC RDW Plt Count Seg Neutrophils % Retic Count (auto) 4.69 H Sodium Potassium Chloride Carbon Dioxide Anion Gap BUN Creatinine Est GFR ( Amer) Glucose Calcium Phosphorus 5.0 H Magnesium 2.7 H Iron 15.4 L TIBC 333 % Saturation 5 Ferritin 11.00 L Total Bilirubin AST Alkaline Phosphatase Total Protein Albumin Lipase Vitamin B12 457.0 Folate 4.08 TSH 1.51 Urine Color Urine Appearance Urine pH Ur Specific [place] Urine Protein Urine Glucose (UA) Urine Ketones Urine Blood Urine Nitrite Ur Leukocyte Esterase Urine WBC (Auto) Urine RBC (Auto) Blood Type Antibody Screen 06/01/19 19:32 WBC RBC Hgb Hct MCV MCH MCHC RDW Plt Count Seg Neutrophils % Retic Count (auto) Sodium Potassium Chloride Carbon Dioxide Anion Gap BUN Creatinine Est GFR ( Amer) Glucose Calcium Phosphorus Magnesium Iron TIBC % Saturation Ferritin Total Bilirubin AST Alkaline Phosphatase Total Protein Albumin Lipase Vitamin B12 Folate TSH Urine Color YELLOW Urine Appearance SLIGHTLY-CLOUDY Urine pH 5.0 Ur Specific [place] 1.017 Urine Protein NEGATIVE Urine Glucose (UA) NEGATIVE Urine Ketones TRACE H Urine Blood NEGATIVE Urine Nitrite NEGATIVE Ur Leukocyte Esterase TRACE H Urine WBC (Auto) 11 Urine RBC (Auto) 3 Blood Type Antibody Screen 06/01/19 06/01/19 06/02/19 18:40 20:55 03:11 Creatine Kinase Troponin I 0.047 0.038 0.034 06/02/19 03:11 Creatine Kinase 58 Troponin I Impressions: Chest X-Ray 06/01/19 18:40 IMPRESSION: No evidence of acute cardiopulmonary abnormality. Background of chronic emphysematous change. Abdomen/Pelvis CT 06/01/19 21:31 IMPRESSION: No acute findings.Chronic mid 1.8 x 1.5 cm and distal 1.7 cm splenic artery aneurysms. Assessment and Plan - Diagnosis (1) PUD (peptic ulcer disease) Is this a current diagnosis for this admission?: Yes Plan: Likely complicated by NSAID use given chronic pain of osteoarthritis, IV Protonix, follow-up surgery consult and CBC (2) Dehydration Is this a current diagnosis for this admission?: Yes Plan: IV fluid challenge, follow-up chemistry (3) Severe anemia Is this a current diagnosis for this admission?: Yes Plan: Most likely secondary to known duodenal ulcer. IV Protonix, surgical consult for endoscopy. 2 units of packed red blood cells ordered. Follow-up CBC, transfuse PRN hemoglobin less than 7 (4) Leukocytosis Qualifiers: Leukocytosis type: leukemoid reaction Qualified Code(s): D72.823 - Leukemoid reaction Is this a current diagnosis for this admission?: Yes Plan: Likely secondary to profound iron deficiency anemia. Follow-up CBC (5) Abdominal pain Qualifiers: Abdominal location: right upper quadrant Qualified Code(s): R10.11 - Right upper quadrant pain Is this a current diagnosis for this admission?: Yes Plan: Secondary to #1, symptomatic management (6) Acute renal failure Is this a current diagnosis for this admission?: Yes Plan: Most likely prerenal azotemia, IV fluid challenge, avoid nephrotoxic meds and d oses follow-up chemistry (7) Decubitus ulcer Qualifiers: Pressure injury location: sacral region Pressure injury stage: stage 2 Qualified Code(s): L89.152 - Pressure ulcer of sacral region, stage 2 Is this a current diagnosis for this admission?: Yes Plan: Specialty bed and wound care - Time Time Spent with patient: 25-34 minutes - Inpatient Certification Medical Necessity: Need Close Monitoring Due to Risk of Patient Decompensation
[2019-06-02] MEDS: IPRATROPIUM/ALBUTEROL 0.5-2.5 MG/3 ML AMPUL NEB SCH ×2 (07:43→19:52)
--- NOTE | 2019-06-02 07:51 | PDOC CONSULTATION ---
Consultation Consult Date: 06/02/19 Attending physician:: MARISELA MCQUEEN Provider Consulted: BETY TAVARES Consult reason:: anemia, hx of gastric ulcer History of Present Illness Admission Date/PCP: 06/02/19 00:03 IRIS APARICIO NP History of Present Illness: KYLAH DUNHAM is a 63 year old female Past Medical History Cardiac Medical History: Denies: Coronary Artery Disease, Myocardial Infarction, Hypertension Pulmonary Medical History: Reports: Bronchitis, Chronic Obstructive Pulmonary Disease (COPD) - questionable Denies: Asthma, Pneumonia Neurological Medical History: Denies: Seizures Musculoskeltal Medical History: Reports: Arthritis - generalized Psychiatric Medical History: Reports: Depression, Tobacco Dependency Hematology: Denies: Anemia Past Surgical History Past Surgical History: Reports: Cholecystectomy, Orthopedic Surgery - astrid wrists, ankle, Tonsillectomy, Tubal Ligation Social History Smoking Status: Former Smoker Electronic Cigarette use?: No Number of Years Smokin Last Time Smoked: May 13 2019 Frequency of Alcohol Use: None Hx Recreational Drug Use: No Drugs: None Hx Prescription Drug Abuse: No - Advance Directive Resuscitation Status: Full Code Family History Family History: Hypertension. denies: Malignancy Parental Family History Reviewed: No Children Family History Reviewed: NA Sibling(s) Family History Reviewed.: NA Medication/Allergy Home Medications: Gabapentin [Neurontin 300 mg Capsule] 300 mg PO Q8 #90 capsule 08/04/15 Lipase/Protease/Amylase [Zenpep Dr 40,000 Units Capsule] 1 tab PO MEALS 01/11/17 Lorazepam 1 mg PO PRN PRN 01/11/17 Tizanidine HCl 4 mg PO TID 01/11/17 Allergies/Adverse Reactions: No Known Allergies Allergy (Verified 01/11/17 10:27) Review of Systems Constitutional: PRESENT: anorexia, fatigue, weakness. ABSENT: chills, fever(s), headache(s), weight gain, weight loss Eyes: ABSENT: as per HPI, visual disturbances, other Ears: ABSENT: as per HPI, hearing changes, other Nose, Mouth, and Throat: ABSENT: as per HPI, headache(s), mouth pain, sore throat, vertigo, other Breasts: ABSENT: as per HPI, other Cardiovascular: ABSENT: as per HPI, chest pain, dyspnea on exertion, edema, orthropnea, palpitations, other Respiratory: ABSENT: cough, hemoptysis Gastrointestinal: PRESENT: as per HPI, bloating, coffee ground emesis, dysphagia, heartburn, melena, nausea, vomiting, other Genitourinary: ABSENT: dysuria, hematuria Musculoskeletal: ABSENT: joint swelling Integumentary: ABSENT: rash, wounds Neurological: ABSENT: abnormal gait, abnormal speech, confusion, dizziness, focal weakness, syncope Psychiatric: ABSENT: anxiety, depression, homidical ideation, suicidal ideation Endocrine: ABSENT: cold intolerance, heat intolerance, polydipsia, polyuria Hematologic/Lymphatic: ABSENT: easy bleeding, easy bruising Physical Exam Vital Signs: Temp Pulse Resp BP Pulse Ox 98.5 F 88 18 110/67 98 06/02/19 06:54 06/02/19 06:54 06/02/19 06:54 06/02/19 06:54 06/02/19 06:54 Intake & Output 06/01/19 06/02/19 06/03/19 06:59 06:59 06:59 Intake Total 690 2000 Output Total 76 Balance 614 2000 Weight 60.2 kg General appearance: PRESENT: no acute distress, well-developed, well-nourished Head exam: PRESENT: atraumatic, normocephalic Eye exam: PRESENT: conjunctiva pink, EOMI, PERRLA. ABSENT: scleral icterus Ear exam: PRESENT: normal external ear exam Mouth exam: PRESENT: moist, tongue midline Neck exam: ABSENT: carotid bruit, JVD, lymphadenopathy, thyromegaly Respiratory exam: PRESENT: clear to auscultation astrid. ABSENT: rales, rhonchi, wheezes Cardiovascular exam: PRESENT: RRR. ABSENT: diastolic murmur, rubs, systolic murmur Pulses: PRESENT: normal dorsalis pedis pul Vascular exam: PRESENT: normal capillary refill GI/Abdominal exam: PRESENT: normal bowel sounds, soft. ABSENT: distended, guarding, mass, organolmegaly, rebound, tenderness Rectal exam: PRESENT: deferred Extremities exam: PRESENT: full ROM. ABSENT: calf tenderness, clubbing, pedal edema Neurological exam: PRESENT: alert, awake, oriented to person, oriented to place, oriented to time, oriented to situation, CN II-XII grossly intact. ABSENT: motor sensory deficit Psychiatric exam: PRESENT: appropriate affect, normal mood. ABSENT: homicidal ideation, suicidal ideation Skin exam: PRESENT: dry, intact, warm. ABSENT: cyanosis, rash Results Laboratory Results: 06/01/19 18:40 06/01/19 18:40 06/01/19 06/01/19 06/01/19 18:40 18:40 18:40 WBC 17.2 H RBC 1.71 L Hgb 4.1 L* Hct 14.1 L* MCV 83 MCH 24.0 L MCHC 28.9 L RDW 19.4 H Plt Count 1142 H* Seg Neutrophils % Not Reportable Retic Count (auto) Sodium 142.1 Potassium 3.4 L Chloride 107 Carbon Dioxide 23 Anion Gap 12 BUN 30 H Creatinine 1.85 H Est GFR ( Amer) 33 L Glucose 69 L Calcium 8.5 Phosphorus Magnesium Iron TIBC % Saturation Ferritin Total Bilirubin 0.5 AST 13 L Alkaline Phosphatase 85 Total Protein 5.9 L Albumin 3.1 L Lipase 54.0 Vitamin B12 Folate TSH Urine Color Urine Appearance Urine pH Ur Specific [place] Urine Protein Urine Glucose (UA) Urine Ketones Urine Blood Urine Nitrite Ur Leukocyte Esterase Urine WBC (Auto) Urine RBC (Auto) Blood Type A POSITIVE Antibody Screen NEGATIVE 06/01/19 06/01/19 06/01/19 18:40 18:40 18:40 WBC RBC Hgb Hct MCV MCH MCHC RDW Plt Count Seg Neutrophils % Retic Count (auto) 4.69 H Sodium Potassium Chloride Carbon Dioxide Anion Gap BUN Creatinine Est GFR ( Amer) Glucose Calcium Phosphorus 5.0 H Magnesium 2.7 H Iron 15.4 L TIBC 333 % Saturation 5 Ferritin 11.00 L Total Bilirubin AST Alkaline Phosphatase Total Protein Albumin Lipase Vitamin B12 457.0 Folate 4.08 TSH 1.51 Urine Color Urine Appearance Urine pH Ur Specific [place] Urine Protein Urine Glucose (UA) Urine Ketones Urine Blood Urine Nitrite Ur Leukocyte Esterase Urine WBC (Auto) Urine RBC (Auto) Blood Type Antibody Screen 06/01/19 19:32 WBC RBC Hgb Hct MCV MCH MCHC RDW Plt Count Seg Neutrophils % Retic Count (auto) Sodium Potassium Chloride Carbon Dioxide Anion Gap BUN Creatinine Est GFR ( Amer) Glucose Calcium Phosphorus Magnesium Iron TIBC % Saturation Ferritin Total Bilirubin AST Alkaline Phosphatase Total Protein Albumin Lipase Vitamin B12 Folate TSH Urine Color YELLOW Urine Appearance SLIGHTLY-CLOUDY Urine pH 5.0 Ur Specific [place] 1.017 Urine Protein NEGATIVE Urine Glucose (UA) NEGATIVE Urine Ketones TRACE H Urine Blood NEGATIVE Urine Nitrite NEGATIVE Ur Leukocyte Esterase TRACE H Urine WBC (Auto) 11 Urine RBC (Auto) 3 Blood Type Antibody Screen 06/01/19 06/01/19 06/02/19 18:40 20:55 03:11 Creatine Kinase Troponin I 0.047 0.038 0.034 06/02/19 03:11 Creatine Kinase 58 Troponin I Impressions: Chest X-Ray 06/01/19 18:40 IMPRESSION: No evidence of acute cardiopulmonary abnormality. Background of chronic emphysematous change. Abdomen/Pelvis CT 06/01/19 21:31 IMPRESSION: No acute findings.Chronic mid 1.8 x 1.5 cm and distal 1.7 cm splenic artery aneurysms. Assessment & Plan - Plan Summary Plan Summary: Impression patient with history of gastric ulcer status post previous biopsy at [facility]. Those results are unavailable at this time. Patient states that the she had a biopsy in December of this year. Patient now presents with the anemia as noted above in addition to that she has weight loss and vomiting. Review the CT scan shows a dilated stomach. Recommendations, We will transfuse packed red blood cells. Would stop patient's regular diet at this point since she is vomiting and allow her to take only sips of clear liquids. We will plan on endoscopy in the next day or 2.
--- NOTE | 2019-06-02 09:27 | PDOC PROGRESS REPORT ---
Subjective Progress Note for:: 06/02/19 Subjective:: The patient is a 63-year-old female with a past medical history of CAD, [place], hypertension, COPD, arthritis, depression, tobacco dependency, chronic pain syndrome who was admitted 06/01/2019 for severe anemia, dehydration, and PUD. The patient was seen on morning rounds. She was found sitting up in bed, comfortably, on room air. She is awake, alert and oriented x4, makes eye contact, and is conversational today. She tells me that she continues to have fatigue and generalized weakness, though is improved as compared to the time of her arrival to the ED last night. She reports that she is felt ill for several weeks to the extent that she was unable to move and so she finally, " threw in the towel and called 911." She denies fever, chills, chest pain, palpitations, dyspnea, orthopnea, nausea and vomiting. She does report intermittent abdominal discomfort and dyspepsia. She has no questions or concerns at this time. No concerns per nursing. Reason For Visit: ANEMIA,ARF Physical Exam Vital Signs: Temp Pulse Resp BP Pulse Ox 98.5 F 89 18 110/67 96 06/02/19 06:54 06/02/19 07:45 06/02/19 07:45 06/02/19 06:54 06/02/19 07:45 Intake & Output 06/01/19 06/02/19 06/03/19 06:59 06:59 06:59 Intake Total 690 2000 Output Total 76 Balance 614 2000 Weight 60.2 kg General appearance: PRESENT: no acute distress, cooperative, disheveled, thin, well-developed Head exam: PRESENT: atraumatic, normocephalic Eye exam: PRESENT: conjunctiva pink, EOMI, PERRLA. ABSENT: scleral icterus Ear exam: PRESENT: normal external ear exam Mouth exam: PRESENT: dry mucosa, tongue midline Neck exam: ABSENT: carotid bruit, JVD, lymphadenopathy, thyromegaly Respiratory exam: PRESENT: clear to auscultation astrid, symmetrical, unlabored. ABSENT: rales, rhonchi, wheezes Cardiovascular exam: PRESENT: RRR, +S1, +S2. ABSENT: diastolic murmur, rubs, systolic murmur Pulses: PRESENT: normal dorsalis pedis pul Vascular exam: PRESENT: normal capillary refill GI/Abdominal exam: PRESENT: normal bowel sounds, soft. ABSENT: distended, guarding, mass, organolmegaly, rebound, tenderness Rectal exam: PRESENT: deferred Extremities exam: PRESENT: full ROM. ABSENT: calf tenderness, clubbing, pedal edema Neurological exam: PRESENT: alert, awake, oriented to person, oriented to place, oriented to time, oriented to situation, CN II-XII grossly intact. ABSENT: motor sensory deficit Psychiatric exam: PRESENT: appropriate affect, normal mood. ABSENT: homicidal ideation, suicidal ideation Skin exam: PRESENT: dry, intact, warm. ABSENT: cyanosis, rash Results Laboratory Results: 06/01/19 18:40 06/01/19 18:40 06/01/19 06/01/19 06/01/19 18:40 18:40 18:40 WBC 17.2 H RBC 1.71 L Hgb 4.1 L* Hct 14.1 L* MCV 83 MCH 24.0 L MCHC 28.9 L RDW 19.4 H Plt Count 1142 H* Seg Neutrophils % Not Reportable Retic Count (auto) Sodium 142.1 Potassium 3.4 L Chloride 107 Carbon Dioxide 23 Anion Gap 12 BUN 30 H Creatinine 1.85 H Est GFR ( Amer) 33 L Glucose 69 L Calcium 8.5 Phosphorus Magnesium Iron TIBC % Saturation Ferritin Total Bilirubin 0.5 AST 13 L Alkaline Phosphatase 85 Total Protein 5.9 L Albumin 3.1 L Lipase 54.0 Vitamin B12 Folate TSH Urine Color Urine Appearance Urine pH Ur Specific [place] Urine Protein Urine Glucose (UA) Urine Ketones Urine Blood Urine Nitrite Ur Leukocyte Esterase Urine WBC (Auto) Urine RBC (Auto) Blood Type A POSITIVE Antibody Screen NEGATIVE 06/01/19 06/01/19 06/01/19 18:40 18:40 18:40 WBC RBC Hgb Hct MCV MCH MCHC RDW Plt Count Seg Neutrophils % Retic Count (auto) 4.69 H Sodium Potassium Chloride Carbon Dioxide Anion Gap BUN Creatinine Est GFR ( Amer) Glucose Calcium Phosphorus 5.0 H Magnesium 2.7 H Iron 15.4 L TIBC 333 % Saturation 5 Ferritin 11.00 L Total Bilirubin AST Alkaline Phosphatase Total Protein Albumin Lipase Vitamin B12 457.0 Folate 4.08 TSH 1.51 Urine Color Urine Appearance Urine pH Ur Specific [place] Urine Protein Urine Glucose (UA) Urine Ketones Urine Blood Urine Nitrite Ur Leukocyte Esterase Urine WBC (Auto) Urine RBC (Auto) Blood Type Antibody Screen 06/01/19 19:32 WBC RBC Hgb Hct MCV MCH MCHC RDW Plt Count Seg Neutrophils % Retic Count (auto) Sodium Potassium Chloride Carbon Dioxide Anion Gap BUN Creatinine Est GFR ( Amer) Glucose Calcium Phosphorus Magnesium Iron TIBC % Saturation Ferritin Total Bilirubin AST Alkaline Phosphatase Total Protein Albumin Lipase Vitamin B12 Folate TSH Urine Color YELLOW Urine Appearance SLIGHTLY-CLOUDY Urine pH 5.0 Ur Specific [place] 1.017 Urine Protein NEGATIVE Urine Glucose (UA) NEGATIVE Urine Ketones TRACE H Urine Blood NEGATIVE Urine Nitrite NEGATIVE Ur Leukocyte Esterase TRACE H Urine WBC (Auto) 11 Urine RBC (Auto) 3 Blood Type Antibody Screen 06/01/19 06/01/19 06/02/19 18:40 20:55 03:11 Creatine Kinase Troponin I 0.047 0.038 0.034 06/02/19 03:11 Creatine Kinase 58 Troponin I Impressions: Chest X-Ray 06/01/19 18:40 IMPRESSION: No evidence of acute cardiopulmonary abnormality. Background of chronic emphysematous change. Abdomen/Pelvis CT 06/01/19 21:31 IMPRESSION: No acute findings.Chronic mid 1.8 x 1.5 cm and distal 1.7 cm splenic artery aneurysms. Assessment and Plan - Diagnosis (1) Severe anemia Is this a current diagnosis for this admission?: Yes Plan: Most likely secondary to known duodenal ulcer. Has received 2 units PRBC IV Protonix, surgical consult for endoscopy. Hematology consultation for severe iron deficiency Follow-up CBC, transfuse PRN hemoglobin less than 7 sterile processing tech is consulted. (2) Acute renal failure Is this a current diagnosis for this admission?: Yes Plan: Most likely prerenal azotemia Creatinine 1.85/BUN 30 Unclear baseline; February 2019 creatinine of 1.47. The patient is being provided PRBC as mentioned above. Continue IV fluids. Avoid nephrotoxic medications as able. Follow-up chemistry. (3) Dehydration Is this a current diagnosis for this admission?: Yes Plan: Continue IV fluids. Encourage p.o. fluids. (4) Decubitus ulcer Qualifiers: Pressure injury location: sacral region Pressure injury stage: stage 2 Qualified Code(s): L89.152 - Pressure ulcer of sacral region, stage 2 Is this a current diagnosis for this admission?: Yes Plan: Specialty bed and wound care (5) Leukocytosis Qualifiers: Leukocytosis type: leukemoid reaction Qualified Code(s): D72.823 - Leukemoid reaction Is this a current diagnosis for this admission?: Yes Plan: Likely secondary to profound iron deficiency anemia. Patient is afebrile, nontoxic-appearing, with normal urinalysis and CXR. Follow-up CBC (6) PUD (peptic ulcer disease) Is this a current diagnosis for this admission?: Yes Plan: Likely complicated by NSAID use given chronic pain of osteoarthritis Continue IV Protonix gtt Surgery is consulted; plan for EGD tomorrow. (7) Depression Is this a current diagnosis for this admission?: Yes Plan: concern for depression given patient's malnourished, dehydration, and home condition. Correction of anemia as above. Mental Health consultation. (8) Debility Is this a current diagnosis for this admission?: Yes Plan: Multifactorial r/t severe anemia and likely depression. PT evaluation. - Time Time Spent with patient: 25-34 minutes Medications reviewed and adjusted accordingly: Yes Anticipated discharge: Home with Homehealth
--- NOTE | 2019-06-02 09:28 | EKG REPORT ---
SEVERITY:- BORDERLINE ECG - SINUS RHYTHM ATRIAL PREMATURE COMPLEX LOW VOLTAGE IN FRONTAL LEADS BORDERLINE T WAVE ABNORMALITIES : Confirmed by: Lizeth Kelly 02-Jun-2019 09:27:49
[2019-06-02 10:05] LABS: ABSOLUTE EOSINOPHILS # (AUTO) 0.1 10^3/uL (0.0-0.6); ABSOLUTE LYMPHOCYTES (AUTO) 1.2 10^3/uL (0.5-4.7); ABSOLUTE MONOCYTES (AUTO) 0.9 10^3/uL (0.1-1.4); ABSOLUTE NEUT (AUTO) 12.3 10^3/uL (1.7-8.2); BASOPHILS % (AUTO) 0.3 % (0-2); EOSINOPHILS % (AUTO) 0.4 % (0-6); HEMATOCRIT 21.4 % (36.0-47.0); LYMPHOCYTES % (AUTO) 8.6 % (13-45); MEAN CORPUSCULAR HEMOGLOBIN 26.3 pg (27.0-33.4); MEAN CORPUSCULAR HGB CONC 32.3 g/dL (32.0-36.0); MEAN CORPUSCULAR VOLUME 81 fl (80-97); PLATELET COUNT 848 10^3/uL (150-450); RED BLOOD COUNT 2.64 10^6/uL (3.72-5.28); RED CELL DISTRIBUTION WIDTH 16.9 % (11.5-14.0); SEGMENTED NEUTROPHILS % (AUTO) 84.7 % (42-78); TOTAL CELLS COUNTED % (AUTO) 100 %; WHITE BLOOD COUNT 14.5 10^3/uL (4.0-10.5)
[2019-06-02 10:07] LABS: HEMOGLOBIN 6.9 g/dL (12.0-15.5)
[2019-06-02] MEDS: DOCUSATE SODIUM 100 MG CAPSULE PO SCH ×2 (10:18→17:39)
[2019-06-02 10:27] LABS: ALBUMIN 3.1 g/dL (3.5-5.0); ALKALINE PHOSPHATASE 87 U/L (38-126); ANION GAP 15 (5-19); ASPARTATE AMINO TRANSFERASE 13 U/L (14-36); BILIRUBIN,DIRECT 0.3 mg/dL (0.0-0.4); BILIRUBIN,TOTAL 0.5 mg/dL (0.2-1.3); BLOOD UREA NITROGEN 20 mg/dL (7-20); CALCIUM 8.2 mg/dL (8.4-10.2); CARBON DIOXIDE 21 mmol/L (22-30); CHLORIDE 105 mmol/L (98-107); GLUCOSE 98 mg/dL (75-110)
[2019-06-02 10:32] LABS: POTASSIUM 2.9 mmol/L (3.6-5.0)
[2019-06-02] MEDS ORDERED: NORMAL SALINE 250 ML IV PRN (10:39)
[2019-06-02] MEDS ORDERED: POTASSIUM CHLORIDE 10 MEQ TABLET.ER PO ONE (11:00)
--- NOTE | 2019-06-02 15:05 | PSYCHOLOGICAL NOTE ---
Psych Note - Psych Note Date seen by psych provider: 06/02/19 Time seen by psych provider: 14:30 Psych Note: Clinician attempted to meet with patient. Patient asked clinician to come back. Patient states she has an endo scheduled tomorrow. Clinician will reattempt.
[2019-06-02] MEDS ORDERED: TRAMADOL HCL 50 MG TABLET PO PRN (15:09)
[2019-06-02] MEDS: CITALOPRAM HYDROBROMIDE 20 MG TABLET PO SCH (16:41)
[2019-06-02] MEDS: DICYCLOMINE HCL 20 MG TABLET PO SCH ×2 (17:39→21:04)
[2019-06-02] MEDS: ROPINIROLE HCL 0.25 MG TABLET PO SCH (17:40)
[2019-06-02] MEDS ORDERED: (PENDING PHARMACY ID) (Gabapentin Enacarbil [Horizant] 600 MG) PO SCH (18:00)
[2019-06-02] MEDS: LATANOPROST 0.005% OPH SOLN 2.5 ML OU SCH (21:04)
[2019-06-03] MEDS ORDERED: POTASSI CL 20 MEQ/D5-1/2NS 1L 1000 ML IV PRN (02:00)
[2019-06-03 03:14] LABS: ABSOLUTE EOSINOPHILS # (AUTO) 0.1 10^3/uL (0.0-0.6); ABSOLUTE LYMPHOCYTES (AUTO) 1.4 10^3/uL (0.5-4.7); ABSOLUTE MONOCYTES (AUTO) 0.9 10^3/uL (0.1-1.4); BASOPHILS % (AUTO) 0.4 % (0-2); EOSINOPHILS % (AUTO) 0.9 % (0-6); HEMATOCRIT 28.4 % (36.0-47.0); MEAN CORPUSCULAR HEMOGLOBIN 27.8 pg (27.0-33.4); MEAN CORPUSCULAR HGB CONC 33.4 g/dL (32.0-36.0); MEAN CORPUSCULAR VOLUME 83 fl (80-97); MONOCYTES % (AUTO) 8.3 % (3-13); PLATELET COUNT 525 10^3/uL (150-450); RED BLOOD COUNT 3.41 10^6/uL (3.72-5.28); RED CELL DISTRIBUTION WIDTH 16.2 % (11.5-14.0); SEGMENTED NEUTROPHILS % (AUTO) 77.4 % (42-78); TOTAL CELLS COUNTED % (AUTO) 100 %; WHITE BLOOD COUNT 10.4 10^3/uL (4.0-10.5)
[2019-06-03 03:15] LABS: HEMOGLOBIN 9.5 g/dL (12.0-15.5)
[2019-06-03 03:39] LABS: ANION GAP 6 (5-19); BLOOD UREA NITROGEN 11 mg/dL (7-20); CALCIUM 7.6 mg/dL (8.4-10.2); CARBON DIOXIDE 22 mmol/L (22-30); CHLORIDE 111 mmol/L (98-107); GLUCOSE 96 mg/dL (75-110)
[2019-06-03 04:00] LABS: POTASSIUM 3.9 mmol/L (3.6-5.0)
[2019-06-03] MEDS: NORMAL SALINE 100 ML with PANTOPRAZOLE SODIUM 80 MG IV PRN ×2 (04:13)
[2019-06-03] MEDS: IPRATROPIUM/ALBUTEROL 0.5-2.5 MG/3 ML AMPUL NEB SCH ×2 (07:51→20:25)
[2019-06-03] MEDS ORDERED: MIDAZOLAM 2 MG/2 ML INJ ONE (08:16)
[2019-06-03] MEDS ORDERED: PROPOFOL INJ 200 MG/20 ML VIAL IV ONE (08:16)
[2019-06-03] MEDS ORDERED: ALBUTEROL SULFATE 0.083% NEB 2.5 MG/3 ML AMPUL NEB ONE (08:18)
[2019-06-03] MEDS ORDERED: GLUCAGON,HUMAN RECOMB 1 MG INJ ONE (08:20)
[2019-06-03] MEDS ORDERED: EPINEPHRINE INJ 1 MG/10 ML DISP.SYRIN ONE (08:20)
--- NOTE | 2019-06-03 09:36 | Operative Report ---
Nonrecallable Operative Report DATE OF SURGERY: 06/03/19 PREOPERATIVE DIAGNOSIS: anemia, h/o gastric ulcer POSTOPERATIVE DIAGNOSIS: 1. large antral ulcer, pre-pyloric position. 2. no active bleeding or old blood in stomach. 3. moderate hiatal hernia. OPERATION: EGD with biopsy SURGEON: SERA BENDER ANESTHESIA: LMAC TISSUE REMOVED OR ALTERED: Margin of antral ulcer COMPLICATIONS: None apparent ESTIMATED BLOOD LOSS: Minimal PROCEDURE: Procedure in detail: After informed consent was obtained, the patient was brought to the operating room and laid in the left lateral decubitus position. The endoscope was passed down the oropharynx, down the esophagus, and into the stomach. The stomach was insufflated with air. Immediately there was noted to be gastritis throughout the stomach. There was a very large antral, prepyloric ulcer. The ulcer was distorting the pylorus somewhat, however the pylorus was intubated. The duodenum was then inspected. There was no evidence of new or old blood within the duodenum. The scope was pulled back into the antrum. There was no old or new blood within the antrum of the stomach. A biopsy was performed at the margin of the large antral ulcer. This will rule out malignancy and H. pylori infection. The scope was then retroflexed in the body of the stomach. There was a moderate size hiatal hernia present. The scope was pulled up into the distal esophagus, which appeared relatively normal. The scope was then withdrawn up the esophagus. The remainder of the esophagus was smooth in contour without masses, lesions, or other abnormalities. The scope was removed from the oropharynx, and the procedure was concluded. All sponge, instrument, and needle counts were correct x2. Condition: Fair.
--- NOTE | 2019-06-03 09:38 | PDOC PROGRESS REPORT ---
Subjective Progress Note for:: 06/03/19 Reason For Visit: ANEMIA,ARF Physical Exam Vital Signs: Temp Pulse Resp BP Pulse Ox 98.6 F 87 16 121/72 92 06/03/19 07:32 06/03/19 07:52 06/03/19 07:52 06/03/19 07:32 06/03/19 07:52 Intake & Output 06/02/19 06/03/19 06/04/19 06:59 06:59 06:59 Intake Total 690 4903 Output Total 76 2300 Balance 614 2603 Weight 60.2 kg 65.3 kg General appearance: PRESENT: no acute distress, cooperative Respiratory exam: PRESENT: clear to auscultation astrid Pulses: PRESENT: normal radial pulses Vascular exam: PRESENT: normal capillary refill Rectal exam: PRESENT: deferred Extremities exam: ABSENT: clubbing Musculoskeletal exam: ABSENT: deformity Neurological exam: PRESENT: alert, awake, oriented to person, oriented to place Psychiatric exam: ABSENT: anxious Focused psych exam: ABSENT: delusional Skin exam: ABSENT: cyanosis, erythema, jaundice Results Laboratory Results: 06/03/19 03:01 06/03/19 03:01 06/01/19 06/02/19 06/02/19 18:40 09:47 09:47 WBC 14.5 H RBC 2.64 L Hgb 6.9 L D Hct 21.4 L MCV 81 MCH 26.3 L MCHC 32.3 RDW 16.9 H Plt Count 848 H Seg Neutrophils % 84.7 H Sodium 141.4 Potassium 2.9 L* Chloride 105 Carbon Dioxide 21 L Anion Gap 15 BUN 20 Creatinine 1.35 H Est GFR ( Amer) 48 L Glucose 98 Calcium 8.2 L Total Bilirubin 0.5 AST 13 L Alkaline Phosphatase 87 Total Protein 6.0 L Albumin 3.1 L Blood Type A POSITIVE Antibody Screen NEGATIVE 06/03/19 06/03/19 03:01 03:01 WBC 10.4 RBC 3.41 L Hgb 9.5 L D Hct 28.4 L MCV 83 MCH 27.8 MCHC 33.4 RDW 16.2 H Plt Count 525 H Seg Neutrophils % 77.4 Sodium 139.4 Potassium 3.9 D Chloride 111 H Carbon Dioxide 22 Anion Gap 6 BUN 11 Creatinine 0.83 Est GFR ( Amer) > 60 Glucose 96 Calcium 7.6 L Total Bilirubin AST Alkaline Phosphatase Total Protein Albumin Blood Type Antibody Screen 06/01/19 06/01/19 06/02/19 18:40 20:55 03:11 Creatine Kinase Troponin I 0.047 0.038 0.034 06/02/19 06/02/19 06/02/19 03:11 09:47 14:45 Creatine Kinase 58 Troponin I 0.024 0.015 Impressions: Chest X-Ray 06/01/19 18:40 IMPRESSION: No evidence of acute cardiopulmonary abnormality. Background of chronic emphysematous change. Abdomen/Pelvis CT 06/01/19 21:31 IMPRESSION: No acute findings.Chronic mid 1.8 x 1.5 cm and distal 1.7 cm splenic artery aneurysms. Assessment & Plan - Diagnosis (1) Anemia Qualifiers: Anemia type: unspecified type Qualified Code(s): D64.9 - Anemia, unspecified Is this a current diagnosis for this admission?: Yes (2) PUD (peptic ulcer disease) Is this a current diagnosis for this admission?: Yes - Time Time Spent with patient: Less than 15 minutes - Plan Summary Plan Summary: This is a 63-year-old female with a history of peptic ulcers and worsening anemia. Plan for EGD today to reevaluate her peptic ulcer. This will also rule out H. pylori, rule out malignancy, and ensure there is no active bleeding. Risks/benefits discussed, informed consent obtained, and all questions answered.
--- NOTE | 2019-06-03 09:54 | PDOC PROGRESS REPORT ---
Subjective Progress Note for:: 06/03/19 Subjective:: The patient is a 63-year-old female with a past medical history of CAD, [place], hypertension, COPD, arthritis, depression, tobacco dependency, chronic pain syndrome who was admitted 06/01/2019 for severe anemia, dehydration, and PUD. The patient was seen on morning rounds. She was found sitting up in bed, comfortably, on room air. She reports fatigue and generalized weakness. Did not sleep well last night. She has no other questions or concerns today. Awaiting EGD this morning. She denies fever, chills, chest pain, palpitations, dyspnea, orthopnea, nausea and vomiting. She does report intermittent abdominal discomfort and dyspepsia. She has no questions or concerns at this time. No concerns per nursing. Reason For Visit: ANEMIA,ARF Physical Exam Vital Signs: Temp Pulse Resp BP Pulse Ox 98.6 F 87 16 121/72 92 06/03/19 07:32 06/03/19 07:52 06/03/19 07:52 06/03/19 07:32 06/03/19 07:52 Intake & Output 06/02/19 06/03/19 06/04/19 06:59 06:59 06:59 Intake Total 690 4903 Output Total 76 2300 Balance 614 2603 Weight 60.2 kg 65.3 kg General appearance: PRESENT: no acute distress, cooperative, disheveled, thin, well-developed, other - Chronically ill-appearing Head exam: PRESENT: atraumatic, normocephalic Eye exam: PRESENT: conjunctiva pink, EOMI, PERRLA. ABSENT: scleral icterus Ear exam: PRESENT: normal external ear exam Mouth exam: PRESENT: moist, tongue midline Respiratory exam: PRESENT: clear to auscultation astrid, symmetrical, unlabored. ABSENT: rales, rhonchi, wheezes Cardiovascular exam: PRESENT: RRR, +S1, +S2. ABSENT: diastolic murmur, rubs, systolic murmur Vascular exam: PRESENT: normal capillary refill GI/Abdominal exam: PRESENT: normal bowel sounds, soft. ABSENT: distended, guarding, mass, organolmegaly, rebound, tenderness Rectal exam: PRESENT: deferred Extremities exam: PRESENT: full ROM. ABSENT: calf tenderness, clubbing, pedal edema Neurological exam: PRESENT: alert, awake, oriented to person, oriented to place, oriented to time, oriented to situation, CN II-XII grossly intact. ABSENT: motor sensory deficit Psychiatric exam: PRESENT: flat affect, normal mood. ABSENT: homicidal ideation, suicidal ideation Skin exam: PRESENT: dry, intact, warm. ABSENT: cyanosis, rash Results Laboratory Results: 06/03/19 03:01 06/03/19 03:01 06/01/19 06/02/19 06/02/19 18:40 09:47 09:47 WBC 14.5 H RBC 2.64 L Hgb 6.9 L D Hct 21.4 L MCV 81 MCH 26.3 L MCHC 32.3 RDW 16.9 H Plt Count 848 H Seg Neutrophils % 84.7 H Sodium 141.4 Potassium 2.9 L* Chloride 105 Carbon Dioxide 21 L Anion Gap 15 BUN 20 Creatinine 1.35 H Est GFR ( Amer) 48 L Glucose 98 Calcium 8.2 L Total Bilirubin 0.5 AST 13 L Alkaline Phosphatase 87 Total Protein 6.0 L Albumin 3.1 L Blood Type A POSITIVE Antibody Screen NEGATIVE 06/03/19 06/03/19 03:01 03:01 WBC 10.4 RBC 3.41 L Hgb 9.5 L D Hct 28.4 L MCV 83 MCH 27.8 MCHC 33.4 RDW 16.2 H Plt Count 525 H Seg Neutrophils % 77.4 Sodium 139.4 Potassium 3.9 D Chloride 111 H Carbon Dioxide 22 Anion Gap 6 BUN 11 Creatinine 0.83 Est GFR ( Amer) > 60 Glucose 96 Calcium 7.6 L Total Bilirubin AST Alkaline Phosphatase Total Protein Albumin Blood Type Antibody Screen 06/01/19 06/01/19 06/02/19 18:40 20:55 03:11 Creatine Kinase Troponin I 0.047 0.038 0.034 06/02/19 06/02/19 06/02/19 03:11 09:47 14:45 Creatine Kinase 58 Troponin I 0.024 0.015 Impressions: Chest X-Ray 06/01/19 18:40 IMPRESSION: No evidence of acute cardiopulmonary abnormality. Background of chronic emphysematous change. Abdomen/Pelvis CT 06/01/19 21:31 IMPRESSION: No acute findings.Chronic mid 1.8 x 1.5 cm and distal 1.7 cm splenic artery aneurysms. Assessment and Plan - Diagnosis (1) Severe anemia Is this a current diagnosis for this admission?: Yes Plan: Most likely secondary to known duodenal ulcer and poor nutrition. Has received 4 units PRBC Surgery was consulted; EGD reveals a very large antral, prepyloric ulcer without active bleeding. Twice daily Protonix. Hematology consultation for severe iron deficiency Follow-up CBC, transfuse PRN hemoglobin less than 7 security flex utility officer is consulted. (2) Acute renal failure Is this a current diagnosis for this admission?: Yes Plan: Resolved. Most likely prerenal azotemia Creatinine 1.85/BUN 30-> 0.83/11 Unclear baseline; February 2019 creatinine of 1.47. The patient is being provided PRBC as mentioned above. Encourage p.o. fluids. Avoid nephrotoxic medications as able. Follow-up chemistry. (3) Dehydration Is this a current diagnosis for this admission?: Yes Plan: Resolved. Encourage p.o. fluids. (4) Decubitus ulcer Qualifiers: Pressure injury location: sacral region Pressure injury stage: stage 2 Qualified Code(s): L89.152 - Pressure ulcer of sacral region, stage 2 Is this a current diagnosis for this admission?: Yes Plan: Specialty bed and wound care Registered dietitian consulted. (5) Leukocytosis Qualifiers: Leukocytosis type: leukemoid reaction Qualified Code(s): D72.823 - Leukemoid reaction Is this a current diagnosis for this admission?: Yes Plan: Resolved. Likely secondary to profound iron deficiency anemia. Patient is afebrile, nontoxic-appearing, with normal urinalysis and CXR. (6) PUD (peptic ulcer disease) Is this a current diagnosis for this admission?: Yes Plan: Likely complicated by NSAID use given chronic pain of osteoarthritis EGD revealed large antral prepyloric ulcer without active bleeding. Biopsies for H. pylori pending. Continue twice daily PPI. (7) Depression Is this a current diagnosis for this admission?: Yes Plan: concern for depression given patient's malnourished, dehydration, and home condition. Correction of anemia as above. Mental Health consultation. (8) Debility Is this a current diagnosis for this admission?: Yes Plan: Multifactorial r/t severe anemia and likely depression. PT evaluation. Discharge planning is consulted; likely will benefit from short-term rehab. - Time Time Spent with patient: 25-34 minutes Medications reviewed and adjusted accordingly: Yes Anticipated discharge: SNF Within: within 48 hours
--- NOTE | 2019-06-03 09:58 | Progress Note ---
Provider Note Provider Note: Patient was found to have a large, nonbleeding antral ulcer. There was no active bleeding or old blood found within the stomach, esophagus, or duodenum. Will add Carafate. Surgery will sign off at this time. Currently there is no indication for further surgical intervention. Please renotify with any questions or concerns.
[2019-06-03] MEDS: DICYCLOMINE HCL 20 MG TABLET PO SCH ×4 (10:59→21:11)
[2019-06-03] MEDS: CITALOPRAM HYDROBROMIDE 20 MG TABLET PO SCH (10:59)
[2019-06-03] MEDS: ROPINIROLE HCL 0.25 MG TABLET PO SCH ×2 (10:59→17:23)
[2019-06-03] MEDS: SUCRALFATE 1 GM TABLET PO SCH ×3 (10:59→21:10)
[2019-06-03] MEDS: DOCUSATE SODIUM 100 MG CAPSULE PO SCH ×2 (10:59→17:23)
[2019-06-03] MEDS: PANTOPRAZOLE SODIUM 40 MG TABLET.DR PO SCH (17:23)
[2019-06-03] MEDS ORDERED: LEVALBUTEROL HCL NEB 1.25 MG/3 ML AMPUL NEB PRN (17:37)
[2019-06-03] MEDS: GUAIFENESIN 600 MG TABLET.SA PO SCH (21:10)
[2019-06-03] MEDS: LATANOPROST 0.005% OPH SOLN 2.5 ML OU SCH (21:10)
[2019-06-04 04:55] LABS: HEMATOCRIT 27.1 % (36.0-47.0); HEMOGLOBIN 9.1 g/dL (12.0-15.5); MEAN CORPUSCULAR HEMOGLOBIN 28.2 pg (27.0-33.4); MEAN CORPUSCULAR HGB CONC 33.6 g/dL (32.0-36.0); MEAN CORPUSCULAR VOLUME 84 fl (80-97); PLATELET COUNT 450 10^3/uL (150-450); RED BLOOD COUNT 3.23 10^6/uL (3.72-5.28); RED CELL DISTRIBUTION WIDTH 16.9 % (11.5-14.0); WHITE BLOOD COUNT 9.9 10^3/uL (4.0-10.5)
[2019-06-04 05:20] LABS: BLOOD UREA NITROGEN 5 mg/dL (7-20); CHLORIDE 110 mmol/L (98-107); GLUCOSE 74 mg/dL (75-110); POTASSIUM 4.1 mmol/L (3.6-5.0)
[2019-06-04 05:26] LABS: CARBON DIOXIDE 25 mmol/L (22-30)
[2019-06-04 05:32] LABS: ANION GAP 5 (5-19)
[2019-06-04] MEDS: PANTOPRAZOLE SODIUM 40 MG TABLET.DR PO SCH ×2 (05:35→17:05)
--- NOTE | 2019-06-04 07:39 | PDOC CONSULTATION ---
Consultation Consult Date: 06/04/19 Attending physician:: MARISELA MCQUEEN Provider Consulted: EMERITA ARITA Consult reason:: Asked by hospitalist team to see patient with anemia History of Present Illness Admission Date/PCP: 06/02/19 00:03 IRIS APARICIO NP Patient complains of: fatigue, anemia History of Present Illness: KYLAH DUNHAM is a 63 year old female with known history of peptic ulcer disease, presents again with antral ulcer, and bleeding related to that most likely. Ferritin was very low at 11 upon admission hemoglobin was in the 4 range. She was given a total of 4 units of packed red blood cell and did have endoscopy indicating a large antral ulcer with no current sequela of bleeding. She also has some psychiatric issues ongoing and is going to be seen by psych. Past Medical History Cardiac Medical History: Denies: Coronary Artery Disease, Myocardial Infarction, Hypertension Pulmonary Medical History: Reports: Bronchitis, Chronic Obstructive Pulmonary Disease (COPD) - questionable Denies: Asthma, Pneumonia Neurological Medical History: Denies: Seizures Musculoskeltal Medical History: Reports: Arthritis - generalized Psychiatric Medical History: Reports: Depression, Tobacco Dependency Hematology: Denies: Anemia Past Surgical History Past Surgical History: Reports: Cholecystectomy, Orthopedic Surgery - astrid wrists, ankle, Tonsillectomy, Tubal Ligation Social History Information Source: Patient Smoking Status: Former Smoker Electronic Cigarette use?: No Number of Years Smokin Last Time Smoked: May 13 2019 Frequency of Alcohol Use: None Hx Recreational Drug Use: No Drugs: None Hx Prescription Drug Abuse: No - Advance Directive Resuscitation Status: Full Code Family History Family History: Hypertension. denies: Malignancy Parental Family History Reviewed: Yes Children Family History Reviewed: Yes Sibling(s) Family History Reviewed.: Yes Medication/Allergy Home Medications: Tizanidine HCl 4 mg PO Q6 01/11/17 Citalopram Hydrobromide [Celexa] 1 tab PO DAILY 06/02/19 Dicyclomine HCl [Bentyl 20 mg Tablet] 20 mg PO QID 06/02/19 Diltiazem HCl [Diltiazem 12Hr ER] 120 mg PO DAILY 06/02/19 Gabapentin Enacarbil [Horizant] 600 mg PO BID 06/02/19 Latanoprost [Xalatan] 2.5 ml OU QHS 06/02/19 Nabumetone 750 mg PO BID 06/02/19 Ropinirole HCl [Requip 0.25 Mg Tablet] 0.25 mg PO BID 06/02/19 Allergies/Adverse Reactions: No Known Allergies Allergy (Verified 01/11/17 10:27) Review of Systems Constitutional: ABSENT: chills, fever(s), headache(s), weight gain, weight loss Eyes: ABSENT: visual disturbances Ears: ABSENT: hearing changes Cardiovascular: ABSENT: chest pain, dyspnea on exertion, edema, orthropnea, palpitations Respiratory: ABSENT: cough, hemoptysis Gastrointestinal: ABSENT: abdominal pain, constipation, diarrhea, hematemesis, hematochezia, nausea, vomiting Genitourinary: ABSENT: dysuria, hematuria Musculoskeletal: ABSENT: joint swelling Integumentary: ABSENT: rash, wounds Neurological: ABSENT: abnormal gait, abnormal speech, confusion, dizziness, focal weakness, syncope Psychiatric: ABSENT: anxiety, depression, homidical ideation, suicidal ideation Endocrine: ABSENT: cold intolerance, heat intolerance, polydipsia, polyuria Hematologic/Lymphatic: ABSENT: easy bleeding, easy bruising Physical Exam Vital Signs: Temp Pulse Resp BP Pulse Ox 98.8 F 84 20 115/67 91 L 06/04/19 04:18 06/04/19 04:18 06/04/19 04:18 06/04/19 04:18 06/04/19 04:18 Intake & Output 06/03/19 06/04/19 06/05/19 06:59 06:59 06:59 Intake Total 4903 1959 Output Total 2300 1000 Balance 2603 959 Weight 65.3 kg 65.4 kg General appearance: PRESENT: no acute distress, well-developed, well-nourished Head exam: PRESENT: atraumatic, normocephalic Eye exam: PRESENT: conjunctiva pink, EOMI, PERRLA. ABSENT: scleral icterus Ear exam: PRESENT: normal external ear exam Mouth exam: PRESENT: moist, tongue midline Neck exam: ABSENT: carotid bruit, JVD, lymphadenopathy, thyromegaly Respiratory exam: PRESENT: clear to auscultation astrid. ABSENT: rales, rhonchi, wheezes Cardiovascular exam: PRESENT: RRR. ABSENT: diastolic murmur, rubs, systolic murmur Pulses: PRESENT: normal dorsalis pedis pul Vascular exam: PRESENT: normal capillary refill GI/Abdominal exam: PRESENT: normal bowel sounds, soft. ABSENT: distended, guarding, mass, organolmegaly, rebound, tenderness Rectal exam: PRESENT: deferred Extremities exam: PRESENT: full ROM. ABSENT: calf tenderness, clubbing, pedal edema Neurological exam: PRESENT: alert, awake, oriented to person, oriented to place, oriented to time, oriented to situation, CN II-XII grossly intact. ABSENT: motor sensory deficit Psychiatric exam: PRESENT: appropriate affect, normal mood. ABSENT: homicidal ideation, suicidal ideation Skin exam: PRESENT: dry, intact, warm. ABSENT: cyanosis, rash Results Laboratory Results: 06/04/19 04:03 06/04/19 04:03 06/04/19 06/04/19 04:03 04:03 WBC 9.9 RBC 3.23 L Hgb 9.1 L Hct 27.1 L MCV 84 MCH 28.2 MCHC 33.6 RDW 16.9 H Plt Count 450 Sodium 139.8 Potassium 4.1 Chloride 110 H Carbon Dioxide 25 Anion Gap 5 BUN 5 L Creatinine 0.62 Est GFR ( Amer) > 60 Glucose 74 L Calcium 8.0 L 06/01/19 06/01/19 06/02/19 18:40 20:55 03:11 Creatine Kinase Troponin I 0.047 0.038 0.034 06/02/19 06/02/19 06/02/19 03:11 09:47 14:45 Creatine Kinase 58 Troponin I 0.024 0.015 Impressions: Chest X-Ray 06/01/19 18:40 IMPRESSION: No evidence of acute cardiopulmonary abnormality. Background of chronic emphysematous change. Abdomen/Pelvis CT 06/01/19 21:31 IMPRESSION: No acute findings.Chronic mid 1.8 x 1.5 cm and distal 1.7 cm splenic artery aneurysms. Assessment & Plan - Diagnosis (1) Anemia Qualifiers: Anemia type: iron deficiency Iron deficiency anemia type: chronic blood loss Qualified Code(s): D50.0 - Iron deficiency anemia secondary to blood loss (chronic) Is this a current diagnosis for this admission?: Yes Plan: Probably mostly related to blood loss from the bleeding ulcer, although there was no sequela currently of bleeding it probably did bleed before. Ferritin was 11 so this would go along with that. We will give IV iron today. - Time Time Spent: 50 to 70 Minutes - Inpatient Certification Based on my medical assessment, after consideration of the patient's comorbidities, presenting symptoms, or acuity I expect that the services needed warrant INPATIENT care.: Yes I certify that my determination is in accordance with my understanding of Medic are's requirements for reasonable and necessary INPATIENT services [42 CFR 412.3e].: Yes
[2019-06-04] MEDS: IPRATROPIUM/ALBUTEROL 0.5-2.5 MG/3 ML AMPUL NEB SCH (07:51)
[2019-06-04] MEDS: SUCRALFATE 1 GM TABLET PO SCH ×3 (08:39→15:58)
[2019-06-04] MEDS ORDERED: FERUMOXYTOL (ESRD) 510 MG/NS 100 ML IV ONE ×2 (09:15)
--- NOTE | 2019-06-04 09:24 | PDOC PROGRESS REPORT ---
Subjective Progress Note for:: 06/04/19 Subjective:: The patient is a 63-year-old female with a past medical history of CAD, [place], hypertension, COPD, arthritis, depression, tobacco dependency, chronic pain syndrome who was admitted 06/01/2019 for severe anemia, dehydration, and PUD. The patient was seen on morning rounds. She was found sitting up in bed, comfortably, on room air. She reports she is feeling well today. Interested in short term rehab. She denies fever, chills, chest pain, palpitations, dyspnea, orthopnea, abdominal pain, nausea and vomiting. Tolerating regular diet well. She has no questions or concerns at this time. No concerns per nursing. Reason For Visit: ANEMIA,ARF Physical Exam Vital Signs: Temp Pulse Resp BP Pulse Ox 98.2 F 89 18 117/72 93 06/04/19 07:50 06/04/19 07:52 06/04/19 07:52 06/04/19 07:50 06/04/19 07:52 Intake & Output 06/03/19 06/04/19 06/05/19 06:59 06:59 06:59 Intake Total 4903 1959 Output Total 2300 1000 Balance 2603 959 Weight 65.3 kg 65.4 kg General appearance: PRESENT: no acute distress, cooperative, thin, well- developed Head exam: PRESENT: atraumatic, normocephalic Eye exam: PRESENT: conjunctiva pink, EOMI, PERRLA. ABSENT: scleral icterus Ear exam: PRESENT: normal external ear exam Mouth exam: PRESENT: moist, tongue midline Respiratory exam: PRESENT: clear to auscultation astrid, symmetrical, unlabored. ABSENT: rales, rhonchi, wheezes Cardiovascular exam: PRESENT: RRR, +S1, +S2. ABSENT: diastolic murmur, rubs, systolic murmur Pulses: PRESENT: normal dorsalis pedis pul Vascular exam: PRESENT: normal capillary refill GI/Abdominal exam: PRESENT: normal bowel sounds, soft. ABSENT: distended, guarding, mass, organolmegaly, rebound, tenderness Rectal exam: PRESENT: deferred Extremities exam: PRESENT: full ROM. ABSENT: calf tenderness, clubbing, pedal edema Neurological exam: PRESENT: alert, awake, oriented to person, oriented to place, oriented to time, oriented to situation, CN II-XII grossly intact. ABSENT: motor sensory deficit Psychiatric exam: PRESENT: appropriate affect, normal mood. ABSENT: homicidal ideation, suicidal ideation Skin exam: PRESENT: dry, intact, warm. ABSENT: cyanosis, rash Results Laboratory Results: 06/04/19 04:03 06/04/19 04:03 06/04/19 06/04/19 04:03 04:03 WBC 9.9 RBC 3.23 L Hgb 9.1 L Hct 27.1 L MCV 84 MCH 28.2 MCHC 33.6 RDW 16.9 H Plt Count 450 Sodium 139.8 Potassium 4.1 Chloride 110 H Carbon Dioxide 25 Anion Gap 5 BUN 5 L Creatinine 0.62 Est GFR ( Amer) > 60 Glucose 74 L Calcium 8.0 L 06/01/19 06/01/19 06/02/19 18:40 20:55 03:11 Creatine Kinase Troponin I 0.047 0.038 0.034 06/02/19 06/02/19 06/02/19 03:11 09:47 14:45 Creatine Kinase 58 Troponin I 0.024 0.015 Impressions: Chest X-Ray 06/01/19 18:40 IMPRESSION: No evidence of acute cardiopulmonary abnormality. Background of chronic emphysematous change. Abdomen/Pelvis CT 06/01/19 21:31 IMPRESSION: No acute findings.Chronic mid 1.8 x 1.5 cm and distal 1.7 cm splenic artery aneurysms. Assessment and Plan - Diagnosis (1) Severe anemia Is this a current diagnosis for this admission?: Yes Plan: Most likely secondary to known duodenal ulcer and poor nutrition. Has received 4 units PRBC Surgery was consulted; EGD reveals a very large antral, prepyloric ulcer without active bleeding. Hematology was consulted. Appreciate Dr. Monk's assistance. Receiving IV iron today. Twice daily Protonix. Follow-up CBC, transfuse PRN hemoglobin less than 7 sinker winder is consulted. (2) Acute renal failure Is this a current diagnosis for this admission?: Yes Plan: Resolved. Most likely prerenal azotemia Creatinine 1.85/BUN 30-> 0.83/11 Unclear baseline; February 2019 creatinine of 1.47. The patient is being provided PRBC as mentioned above. Encourage p.o. fluids. Avoid nephrotoxic medications as able. Follow-up chemistry. (3) Dehydration Is this a current diagnosis for this admission?: Yes Plan: Resolved. Encourage p.o. fluids. (4) Decubitus ulcer Qualifiers: Pressure injury location: sacral region Pressure injury stage: stage 2 Qualified Code(s): L89.152 - Pressure ulcer of sacral region, stage 2 Is this a current diagnosis for this admission?: Yes Plan: Specialty bed and wound care Registered dietitian consulted. (5) Leukocytosis Qualifiers: Leukocytosis type: leukemoid reaction Qualified Code(s): D72.823 - Leukemoid reaction Is this a current diagnosis for this admission?: Yes Plan: Resolved. Likely secondary to profound iron deficiency anemia. Patient is afebrile, nontoxic-appearing, with normal urinalysis and CXR. (6) PUD (peptic ulcer disease) Is this a current diagnosis for this admission?: Yes Plan: Likely complicated by NSAID use given chronic pain of osteoarthritis EGD revealed large antral prepyloric ulcer without active bleeding. Biopsies for H. pylori pending. Continue twice daily PPI. (7) Depression Is this a current diagnosis for this admission?: Yes Plan: concern for depression given patient's malnourished, dehydration, and home condition. Correction of anemia as above. Awaiting mental health evaluation and recommendations. (8) Debility Is this a current diagnosis for this admission?: Yes Plan: Multifactorial r/t severe anemia and likely depression. PT evaluation. Discharge planning is consulted; patient is interested in short-term rehab. - Time Time Spent with patient: 25-34 minutes Medications reviewed and adjusted accordingly: Yes Anticipated discharge: SNF Within: within 24 hours - Pending mental health evaluation and recommendations.
[2019-06-04] MEDS ORDERED: FLUTICASONE NASAL SPRAY 50 MCG/SPRY 120 SPRAY/16 GM NASL SCH (10:00)
[2019-06-04] MEDS: GUAIFENESIN 600 MG TABLET.SA PO SCH (10:15)
[2019-06-04] MEDS: ROPINIROLE HCL 0.25 MG TABLET PO SCH ×2 (10:15→17:05)
[2019-06-04] MEDS: DICYCLOMINE HCL 20 MG TABLET PO SCH ×3 (10:15→17:05)
[2019-06-04] MEDS: CITALOPRAM HYDROBROMIDE 20 MG TABLET PO SCH (10:15)
[2019-06-04] MEDS: DOCUSATE SODIUM 100 MG CAPSULE PO SCH ×2 (10:16→17:11)
[2019-06-04 10:52] LABS: HEMOGLOBIN 4.1 g/dL (12.0-15.5)
[2019-06-04 12:09] LABS: PATH REVIEW PATHOLOGIST REVIEWED
[2019-06-04 12:40] VITALS: BP 125/79
--- NOTE | 2019-06-04 13:33 | PSYCHOLOGICAL NOTE ---
Psych Note - Psych Note Date seen by psych provider: 06/04/19 Time seen by psych provider: 12:15 Psych Note: Reason For Consult:Depression Consent Permissions:none provided Patient disclosed that May is a hard month because it is the 2-year anniversary of her 's passing. She continued report that her pet cat just also. She denies severe depression or thoughts of wanting to harm herself stating that she had fallen ill and was so weak she could not bury the cat or engage in ADLs. She reports she has an upper respiratory issue that made it difficult to even get to the bathroom. Patient reports she is already on medication for depression and reports that it works overall but feels that medication can only do so much, the person has to want to be happy. She reports she is planning to move back to [place] in the spring to be with family. She continued to disclosed that she wants to be closer to her grandchildren. She reports that the current plan of care for medical is 1 or 2 more days here at [facility] and then a short stay for rehab at a different facility. Clinician discussed with patient in regards to her cat being in the home (currently unclear if the patient's cat is still in the home). Patient declined assistance in determining if the body of her cat is still in the home and states she plans to take care of it when she returns home. She confirms she understands the time length between and when she will be home and reports she is fully aware of what she may find. She disclosed she does have a friend who will be able to help her deal with it when she gets home. Clinician asked again if she would like assistance in this in which the patient graciously declined stating again [place] and understands; however, feels she must do this for herself. Patient is alert and orientated to person, place, time and circumstance. Mood is euthymic with congruent affect as evidenced by smiling and engaging with clinician. Patient denies suicidal and homicidal ideation. Delusions are absent and behaviors congruent with an intact reality based presentation ie organized and linear thought process. Eye contact is well-maintained. Conversational speech is within normal rate, tone and prosody. Intellectual abilities appear to be within the average range. Attention and concentration are good. Insight, judgment, impulse control are fair. Diagnosis: Bereavement Medication recommendations per [facility] contracted psychiatrist Dr. Jessica VILLEDA are as follows please continue home medications Impression\plan:Patient is cleared from acute psychiatric services. Patient reports this month is the 2 year anniversary of the passing of her and then her cat . She denies thoughts of wanting to hurt herself or depression that stopped her from ADLs (ie eating, bathing etc.). She reports she was sick and too weak to bury her cat after it . Patient is pleasent with euthymic mood and congruent affect. She smiles and engaged with clinician. She demonstrated forward thinking identifying wanting to move back to [place], where her grandchildren are, the spring. Patient declines assistance with medication adjustments or therapeutic services. She confirmed to notify staff if she changes her mind or would like to speak with the behavioral health team again. Dr. Cardenas was consulted to care management of this patient; attending physicians in agreement with recommendations and disposition.
[2019-06-04] MEDS ORDERED: GABAPENTIN 400 MG CAPSULE PO SCH (14:00)
--- NOTE | 2019-06-04 15:39 | PDOC TRANSFER SUMMARY ---
Impression - Admit/DC Date/PCP Admission Date/Primary Care Provider: 06/02/19 00:03 IRIS APARICIO NP Discharge Date: 06/04/19 - Discharge Diagnosis (1) Severe anemia Is this a current diagnosis for this admission?: Yes (2) Acute renal failure Is this a current diagnosis for this admission?: Yes (3) Dehydration Is this a current diagnosis for this admission?: Yes (4) Decubitus ulcer Is this a current diagnosis for this admission?: Yes (5) Leukocytosis Is this a current diagnosis for this admission?: Yes (6) PUD (peptic ulcer disease) Is this a current diagnosis for this admission?: Yes (7) Depression Is this a current diagnosis for this admission?: Yes (8) Debility Is this a current diagnosis for this admission?: Yes - Additional Information Resuscitation Status: Full Code Discharge Diet: Regular Discharge Activity: Activity As Tolerated, Balance Activity w/Rest, Slowly Increase Activity Referrals: IRIS APARICIO NP [Primary Care Provider] - (Follow-up within 1 week.) EMERITA MONK MD [ACTIVE STAFF] - (Follow up in 2-3 weeks for iron deficiency anemia.) Prescriptions: Fluticasone Propionate [Flonase Nasal Barnwell 50 Mcg/Barnwell 16 gm] 2 spray NASL DAILY #1 spray.pump Guaifenesin [Mucinex Sr 600 mg Tablet.sa] 600 mg PO Q12 #14 tablet. Home Medications: Citalopram Hydrobromide [Celexa] 1 tab PO DAILY 06/02/19 Dicyclomine HCl [Bentyl 20 mg Tablet] 20 mg PO QID 06/02/19 Gabapentin Enacarbil [Horizant] 600 mg PO BID 06/02/19 Latanoprost [Xalatan] 2.5 ml OU QHS 06/02/19 Ropinirole HCl [Requip 0.25 mg Tablet] 0.25 mg PO BID 06/02/19 Acetaminophen [Tylenol 325 mg Tablet] 650 mg PO Q4HP PRN tablet 06/04/19 Docusate Sodium [Colace 100 mg Capsule] 100 mg PO BID capsule 06/04/19 Fluticasone Propionate [Flonase Nasal Barnwell 50 Mcg/Barnwell 16 gm] 2 spray NASL DAILY #1 spray.pump 06/04/19 Guaifenesin [Mucinex Sr 600 mg Tablet.sa] 600 mg PO Q12 #14 tablet.sa 06/04/19 Pantoprazole Sodium [Protonix [address] Tablet] 40 mg PO BID@0600,1700 #0 tablet.dr 06/04/19 Sucralfate [Carafate 1 gm Tablet] 1 gm PO ACHS tablet 06/04/19 Tramadol HCl [Ultram 50 mg Tablet] 50 mg PO Q6HP PRN tablet 06/04/19 History of Present Illiness History of Present Illness: Per H&P by Dr. Otoole: KYLAH DUNHAM is a 63 year old female with a past medical history of chronic pain syndrome, osteoarthritis and duodenal ulcer with anemia. She presents with fatigue, arthralgias without fever. In the emergency room she is found to have profound anemia with a hemoglobin of 4.1 and acute renal failure. She is ordered 2 units of packed red blood cells and referred to the hospitalist for admission. Patient admits previous episode of duodenal ulcers with anemia but without recent primary care follow-up. She denies bright red blood per rectum. In the emergency room she does have Hemoccult positive stools, thrombocytosis and leukocytosis without fever. Hospital Course Hospital Course: (1) Severe anemia The patient was admitted to [facility] and monitored on continuous cardiac telemetry. Has received 4 units PRBC Surgery was consulted; EGD reveals a very large antral, prepyloric ulcer without active bleeding. Hematology was consulted; received IV iron today. Recommend conintinueing twice daily Protonix. Recommend follow-up CBC in 5 to 7 days. Continue multivitamin and iron supplementation. (2) Acute renal failure Resolved. Prerenal azotemia Creatinine 1.85/BUN 30-> 0.83/11 Recommend follow-up chemistry in 5 to 7 days. (3) Dehydration Resolved. Encourage p.o. fluids. (4) Decubitus ulcer Recommend frequent positioning changes and routine wound care. (5) Leukocytosis Resolved. Likely secondary to profound iron deficiency anemia. Patient is afebrile, nontoxic-appearing, with normal urinalysis and CXR. No indications for antibiotic therapy at this time. (6) PUD (peptic ulcer disease) EGD revealed large antral prepyloric ulcer without active bleeding. Biopsies for H. pylori pending. Continue twice daily PPI and Carafate with meals and at bedtime. (7) Depression Concern for depression given patient's malnourished, dehydration, and home condition. Correction of anemia as above. Mental health services have evaluated the patient; have cleared her from any acute psychiatric needs. Recommend continuing the patient's home regimen. (8) Debility Multifactorial r/t severe anemia and likely depression. PT evaluation. Patient has been accepted to [facility] for short-term rehab. (9) Malnutrition Encourage p.o. intake. Continue multivitamin and iron supplementation. Consider nutritional supplement such as Boost or Ensure. Physical Exam Vital Signs: Temp Pulse Resp BP Pulse Ox 99.3 F 88 16 125/79 93 06/04/19 12:05 06/04/19 14:00 06/04/19 12:05 06/04/19 12:05 06/04/19 12:05 Intake & Output 06/03/19 06/04/19 06/05/19 06:59 06:59 06:59 Intake Total 4903 1959 920 Output Total 2300 1000 320 Balance 2603 959 600 Weight 65.3 kg 65.4 kg 65.4 kg General appearance: PRESENT: no acute distress, thin, well-developed, well- nourished Head exam: PRESENT: atraumatic, normocephalic Eye exam: PRESENT: conjunctiva pink, EOMI, PERRLA. ABSENT: scleral icterus Ear exam: PRESENT: normal external ear exam Mouth exam: PRESENT: moist, tongue midline Neck exam: ABSENT: carotid bruit, JVD, lymphadenopathy, thyromegaly Respiratory exam: PRESENT: clear to auscultation astrid. ABSENT: rales, rhonchi, wheezes Cardiovascular exam: PRESENT: RRR. ABSENT: diastolic murmur, rubs, systolic murmur Pulses: PRESENT: normal dorsalis pedis pul Vascular exam: PRESENT: normal capillary refill GI/Abdominal exam: PRESENT: normal bowel sounds, soft. ABSENT: distended, guarding, mass, organolmegaly, rebound, tenderness Rectal exam: PRESENT: deferred Extremities exam: PRESENT: full ROM. ABSENT: calf tenderness, clubbing, pedal edema Neurological exam: PRESENT: alert, awake, oriented to person, oriented to place, oriented to time, oriented to situation, CN II-XII grossly intact. ABSENT: motor sensory deficit Psychiatric exam: PRESENT: appropriate affect, normal mood. ABSENT: homicidal ideation, suicidal ideation Skin exam: PRESENT: dry, intact, warm. ABSENT: cyanosis, rash Results Laboratory Results: WBC 9.9 10^3/uL (4.0-10.5) 06/04/19 04:03 RBC 3.23 10^6/uL (3.72-5.28) L 06/04/19 04:03 Hgb 9.1 g/dL (12.0-15.5) L 06/04/19 04:03 Hct 27.1 % (36.0-47.0) L 06/04/19 04:03 MCV 84 fl (80-97) 06/04/19 04:03 MCH 28.2 pg (27.0-33.4) 06/04/19 04:03 MCHC 33.6 g/dL (32.0-36.0) 06/04/19 04:03 RDW 16.9 % (11.5-14.0) H 06/04/19 04:03 Plt Count 450 10^3/uL (150-450) 06/04/19 04:03 Lymph % (Auto) 13.0 % (13-45) 06/03/19 03:01 Hart % (Auto) 8.3 % (3-13) 06/03/19 03:01 Eos % (Auto) 0.9 % (0-6) 06/03/19 03:01 Baso % (Auto) 0.4 % (0-2) 06/03/19 03:01 Reticulocyte # 0.082 10^6/uL (0.028-0.122) 06/01/19 18:40 Absolute Neuts (auto) 8.0 10^3/uL (1.7-8.2) 06/03/19 03:01 Absolute Lymphs (auto) 1.4 10^3/uL (0.5-4.7) 06/03/19 03:01 Absolute Monos (auto) 0.9 10^3/uL (0.1-1.4) 06/03/19 03:01 Absolute Eos (auto) 0.1 10^3/uL (0.0-0.6) 06/03/19 03:01 Absolute Basos (auto) 0.0 10^3/uL (0.0-0.2) 06/03/19 03:01 Total Counted 100 06/01/19 18:40 Seg Neutrophils % 77.4 % (42-78) 06/03/19 03:01 Seg Neuts % (Manual) 94 % (42-78) H 06/01/19 18:40 Lymphocytes % (Manual) 4 % (13-45) L 06/01/19 18:40 Monocytes % (Manual) 2 % (3-13) L 06/01/19 18:40 Eosinophils % (Manual) 0 % (0-6) 06/01/19 18:40 Basophils % (Manual) 0 % (0-2) 06/01/19 18:40 Abs Neuts (Manual) 16.2 10^3/uL (1.7-8.2) H 06/01/19 18:40 Abs Lymphs (Manual) 0.7 10^3/uL (0.5-4.7) 06/01/19 18:40 Abs Monocytes (Manual) 0.3 10^3/uL (0.1-1.4) 06/01/19 18:40 Absolute Eos (Manual) 0.0 10^3/uL (0.0-0.6) 06/01/19 18:40 Abs Basophils (Manual) 0.0 10^3/uL (0.0-0.2) 06/01/19 18:40 Nucleated RBCs 2 /100 WBC (0) 06/01/19 18:40 Platelet Comment INCREASED 06/01/19 18:40 Polychromasia SLIGHT 06/01/19 18:40 Hypochromasia 3+ 06/01/19 18:40 Anisocytosis 2+ 06/01/19 18:40 Tear Drop Cells SLIGHT 06/01/19 18:40 Ovalocytes SLIGHT 06/01/19 18:40 Retic Count (auto) 4.69 % (0.66-2.85) H 06/01/19 18:40 Haptoglobin 376 mg/dL (37-355) H 06/02/19 01:06 PT 15.8 SEC (11.4-15.4) H 06/02/19 01:06 INR 1.25 06/02/19 01:06 APTT 29.3 SEC (23.5-35.8) 06/01/19 18:40 Sodium 139.8 mmol/L (137-145) 06/04/19 04:03 Potassium 4.1 mmol/L (3.6-5.0) 06/04/19 04:03 Chloride 110 mmol/L (98-107) H 06/04/19 04:03 Carbon Dioxide 25 mmol/L (22-30) 06/04/19 04:03 Anion Gap 5 (5-19) 06/04/19 04:03 BUN 5 mg/dL (7-20) L 06/04/19 04:03 Creatinine 0.62 mg/dL (0.52-1.25) 06/04/19 04:03 Est GFR ( Amer) > 60 (>60) 06/04/19 04:03 Est GFR (MDRD) Non-Af > 60 (>60) 06/04/19 04:03 Glucose 74 mg/dL (75-110) L 06/04/19 04:03 POC Glucose 115 mg/dL (70-110) H 06/03/19 18:19 Lactic Acid (Sepsis) 1.0 mmol/L (0.7-2.1) 06/01/19 18:40 Calcium 8.0 mg/dL (8.4-10.2) L 06/04/19 04:03 Phosphorus 5.0 mg/dL (2.5-4.5) H 06/01/19 18:40 Magnesium 2.7 mg/dL (1.6-2.3) H 06/01/19 18:40 Iron 15.4 ug/dL (37-170) L 06/01/19 18:40 TIBC 333 ug/dL (250-450) 06/01/19 18:40 % Saturation 5 % 06/01/19 18:40 Ferritin 11.00 ng/mL (11.1-264.0) L 06/01/19 18:40 Total Bilirubin 0.5 mg/dL (0.2-1.3) 06/02/19 09:47 Direct Bilirubin 0.3 mg/dL (0.0-0.4) 06/02/19 09:47 Neonat Total Bilirubin Not Reportable 06/02/19 09:47 Neonat Direct Bilirubin Not Reportable 06/02/19 09:47 Neonat Indirect Bili Not Reportable 06/02/19 09:47 AST 13 U/L (14-36) L 06/02/19 09:47 ALT 9 U/L (<35) 06/02/19 09:47 Alkaline Phosphatase 87 U/L (38-126) 06/02/19 09:47 Lactate Dehydrogenase 195 U/L (120-246) 06/02/19 01:06 Creatine Kinase 58 U/L (30-135) 06/02/19 03:11 Troponin I 0.015 ng/mL 06/02/19 14:45 Total Protein 6.0 g/dL (6.3-8.2) L 06/02/19 09:47 Albumin 3.1 g/dL (3.5-5.0) L 06/02/19 09:47 Lipase 54.0 U/L (23-300) 06/01/19 18:40 Vitamin B12 457.0 pg/mL (239-931) 06/01/19 18:40 Folate 4.08 ng/mL (>2.76) 06/01/19 18:40 TSH 1.51 uIU/mL (0.47-4.68) 06/01/19 18:40 Random Cortisol 23.90 ug/dL (None Established) 06/01/19 18:40 Urine Color YELLOW 06/01/19 19:32 Urine Appearance SLIGHTLY-CLOUDY 06/01/19 19:32 Urine pH 5.0 (5.0-9.0) 06/01/19 19:32 Ur Specific Moodus 1.017 06/01/19 19:32 Urine Protein NEGATIVE mg/dL (NEGATIVE) 06/01/19 19:32 Urine Glucose (UA) NEGATIVE mg/dL (NEGATIVE) 06/01/19 19:32 Urine Ketones TRACE mg/dL (NEGATIVE) H 06/01/19 19:32 Urine Blood NEGATIVE (NEGATIVE) 06/01/19 19:32 Urine Nitrite NEGATIVE (NEGATIVE) 06/01/19 19:32 Urine Bilirubin NEGATIVE (NEGATIVE) 06/01/19 19:32 Urine Urobilinogen NEGATIVE mg/dL (<2.0) 06/01/19 19:32 Ur Leukocyte Esterase TRACE (NEGATIVE) H 06/01/19 19:32 Urine WBC (Auto) 11 /HPF 06/01/19 19:32 Urine RBC (Auto) 3 /HPF 06/01/19 19:32 U Hyaline Cast (Auto) 19 /LPF 06/01/19 19:32 Squamous Epi Cells Auto 6 /HPF 06/01/19 19:32 Urine Mucus (Auto) RARE /LPF 06/01/19 19:32 Urine Yeast (Budding) PRESENT /HPF 06/01/19 19:32 Urine Ascorbic Acid NEGATIVE (NEGATIVE) 06/01/19 19:32 POC Stool Occult Blood POSITIVE (NEGATIVE) 06/01/19 21:21 Urine Opiates Screen NEGATIVE 06/01/19 19:32 Urine Methadone Screen NEGATIVE 06/01/19 19:32 Ur Barbiturates Screen NEGATIVE 06/01/19 19:32 Ur Phencyclidine Scrn NEGATIVE 06/01/19 19:32 Ur Amphetamines Screen NEGATIVE 06/01/19 19:32 U Benzodiazepines Scrn NEGATIVE 06/01/19 19:32 Urine Cocaine Screen NEGATIVE 06/01/19 19:32 U Marijuana (THC) Screen NEGATIVE 06/01/19 19:32 Slides for Path Review PATHOLOGIST REVIEWED 06/01/19 18:40 Blood Type A POSITIVE 06/01/19 18:40 Blood Type Confirm A POSITIVE 06/01/19 18:40 Antibody Screen NEGATIVE 06/01/19 18:40 Crossmatch See Detail 06/01/19 18:40 06/01/19 06/01/19 06/02/19 18:40 20:55 03:11 Troponin I 0.047 0.038 0.034 06/02/19 06/02/19 09:47 14:45 Troponin I 0.024 0.015 Impressions: Chest X-Ray 06/01/19 18:40 IMPRESSION: No evidence of acute cardiopulmonary abnormality. Background of chronic emphysematous change. Abdomen/Pelvis CT 06/01/19 21:31 IMPRESSION: No acute findings.Chronic mid 1.8 x 1.5 cm and distal 1.7 cm splenic artery aneurysms. Plan Plan of Treatment: The patient is discharged, in stable condition, to [facility] for short-term rehab. She is advised to follow-up with her primary care provider within 1 week of discharge from rehab. Recommend following up with Dr. Monk, hematology, within 2 to 3 weeks. Recommend repeat CBC within 5 to 7 days. Continue multivitamin and iron supplementation. Continue PPI for treatment of peptic ulcer disease. Return to the emergency department as needed for concerning symptoms. Time Spent: Greater than 30 Minutes Stroke Is this a Stroke Patient?: No Acute Heart Failure - Is this a Heart Failure Patient?: No
== END 2019-06-04 18:15 | DRG 812 ==
LOC: ER 16:35 → EH 06-02 00:03 → 3N 06-02 02:11
PROVIDERS: ADMIT Internal Medicine; ATTEND Internal Medicine
PROC: 30233N1 Transfusion of Nonautologous Red Blood Cells into Peripheral Vein, Percutaneous Approach (ICD-10-PCS; principal; 2019-06-02)
PROC: 0DD78ZX Extraction of Stomach, Pylorus, Via Natural or Artificial Opening Endoscopic, Diagnostic (ICD-10-PCS; 2019-06-03)
PROC: 3E0234Z Introduction of Serum, Toxoid and Vaccine into Muscle, Percutaneous Approach (ICD-10-PCS; 2019-06-04)
DX: D50.0 Iron deficiency anemia secondary to blood loss (chronic) (principal); E44.0 Moderate protein-calorie malnutrition; N17.9 Acute kidney failure, unspecified; K86.1 Other chronic pancreatitis; K26.9 Duodenal ulcer, unspecified as acute or chronic, without hemorrhage or perforation; L89.152 Pressure ulcer of sacral region, stage 2; E86.0 Dehydration; D72.823 Leukemoid reaction; F41.9 Anxiety disorder, unspecified; M95.9 Acquired deformity of musculoskeletal system, unspecified; Z23 Encounter for immunization
CPT/HCPCS: 00731; 36415; 36430; 43239; 71045; 74177; 80048; 80053; 80307; 81001; 82533; 82550; 82607; 82728; 82746; 82941; 82962; 83010; 83540; 83550; 83605; 83615; 83690; 83735; 84100; 84443; 84484; 85025; 85027; 85045; 85610; 85730; 86850; 86900; 86901; 86920; 88305; 88342; 90686; 93005; 93010; 94640; 96360; 96361; 99285; C9113; J0171; J1610; J1644; J1756; J2250; J2270; J2405; J2704; J3480; J3490; J7030; J7050; J7620; P9016; Q0139

== ENCOUNTER 2019-06-05 20:54 | Inpatient (IN) | payer MEDICARE ==
[2019-06-05] MEDS ORDERED: MIDAZOLAM 2 MG/2 ML INJ IV ONE ×2 (21:08→22:47)
[2019-06-05] MEDS ORDERED: VECURONIUM BROMIDE INJ 10 MG VIAL IV ONE ×3 (21:08→23:36)
[2019-06-05] MEDS ORDERED: PIPERACILLIN/TAZOBACTAM 4.5 GM VIAL IV ONE (21:12)
[2019-06-05] MEDS ORDERED: NORMAL SALINE 1000 ML 1,000 ML IV ONE ×2 (21:28→23:01)
--- NOTE | 2019-06-05 21:40 | ER Document Report ---
ED General - General Chief Complaint: Respiratory Distress Stated Complaint: RESPIRATORY DISTRES Time Seen by Provider: 06/05/19 21:05 Primary Care Provider: IRIS APARICIO NP [Primary Care Provider] - Follow up as needed TRAVEL OUTSIDE OF THE [place] IN LAST 30 DAYS: No - HPI Notes: This is a 63-year-old female who presents today with a complaint of respiratory distress. Patient was recently admitted to the hospital for weakness and acute kidney injury, and was at rehab. She was admitted to the rehab facility yesterday. EMS reports that they were called because patient was having lots of trouble breathing. Patient admits to have had some cough and congestion. She was in so much distress that she cannot give me any more history. EMS reports that she was hypoxic. Initially, they had some wheezing. After giving her a DuoNeb treatment, they had some crackles. Patient was provided on CPAP with sats in the 70s on CPAP. - Related Data Allergies/Adverse Reactions: No Known Allergies Allergy (Verified 01/11/17 10:27) Past Medical History - Social History Smoking Status: Unknown if Ever Smoked Family History: Hypertension. denies: Malignancy - Past Medical History Cardiac Medical History: Denies: Hx Coronary Artery Disease, Hx Heart Attack, Hx Hypertension Pulmonary Medical History: Reports: Hx Bronchitis, Hx COPD - questionable Denies: Hx Asthma, Hx Pneumonia Neurological Medical History: Denies: Hx Cerebrovascular Accident, Hx Seizures Renal/ Medical History: Denies: Hx Peritoneal Dialysis GI Medical History: Reports: Hx Pancreatitis - Chronic Musculoskeletal Medical History: Reports Hx Arthritis - generalized , Reports Hx Musculoskeletal Deformity Psychiatric Medical History: Reports: Hx Anxiety, Hx Depression Past Surgical History: Reports: Hx Cholecystectomy, Hx Orthopedic Surgery - astrid wrists, ankle, Hx Tonsillectomy, Hx Tubal Ligation - Immunizations Hx Diphtheria, Pertussis, Tetanus Vaccination: Yes Review of Systems - Review of Systems -: Yes ROS unobtainable due to patient's medical condition Cardiovascular: denies: Chest pain Respiratory: Cough, Short of breath Physical Exam - Vital signs Vitals: Resp BP Pulse Ox 19 122/83 94 06/05/19 22:16 06/05/19 22:16 06/05/19 22:16 Interpretation: Hypoxic, Tachypneic - General General appearance: Alert In distress: Severe - Patient is in severe respiratory distress, hypoxic and tachypneic on CPAP. She is getting tired. Intubated for impending respiratory failure. - Respiratory Respiratory status: Respiratory distress, Labored, Tachypnea Chest status: Nontender Breath sounds: Rales - Rales and right upper lung read. Rhonchi in the lower lung read., Rhonchi. No: Wheezing Chest palpation: Normal - Cardiovascular Rhythm: Regular Heart sounds: Normal auscultation Murmur: No - Abdominal Inspection: Normal Distension: No distension Bowel sounds: Normal Tenderness: Nontender Organomegaly: No organomegaly - Extremities General upper extremity: Normal inspection, Nontender, Normal color, Normal ROM, Normal temperature. No: Edema General lower extremity: Normal inspection, Nontender, Normal color, Normal temperature. No: Edema, Jose's sign - Neurological Neuro grossly intact: Yes Course - Re-evaluation Re-evalutation: 06/05/19 21:19 Clinical picture suggest acute respiratory failure secondary to either pneumonia versus CHF. Will refrain from IV fluids and states that her chest x-ray. Patient intubated promptly for respiratory failure. Initial sinus tach at 137 bpm. Nonspecific T wave abnormalities. No acute injury pattern. 2125 Chest x-ray is concerning for right upper lobe right middle lobe pneumonia with almost complete white line. Patient is hypotensive. I will judiciously give IV fluids. Liter bolus ordered at this time. Awaiting labs. Cipro and Zosyn ordered for H CAP pneumonia 06/05/19 21:57 Patient reevaluated. Blood pressure improved with IV fluids. Blood pressure is now 124/80. Still tachycardic. 06/05/19 23:26 Patient is hypotensive again. Central line placed. Will start Levophed drip. Labs pending. Initial blood apparently was diluted so we had to repeat labs. 06/06/19 00:43 Blood pressure improved on Levophed. Patient's care discussed with Dr. Prasad. Will admit. 06/06/19 00:46 - Vital Signs Vital signs: Temp Pulse Resp BP Pulse Ox 16 117/80 93 06/06/19 00:25 06/06/19 00:25 06/06/19 00:25 - Laboratory Result Diagrams: 06/05/19 22:51 06/05/19 22:51 Laboratory results interpreted by me: 06/05/19 06/05/19 06/05/19 21:52 21:52 22:35 Hgb Hct MCHC RDW Band Neutrophils % Lymphocytes % (Manual) Monocytes % (Manual) Abs Lymphs (Manual) Carbonic Acid 1.54 H ABG pH 7.32 L ABG pCO2 51.2 H ABG pO2 40.2 L* ABG HCO3 26.0 H 25.2 H ABG Total CO2 27.5 H 26.4 H ABG O2 Saturation 70.6 L Potassium BUN Calcium NT-Pro-B Natriuret Pep Total Protein Albumin Urine Protein 30 H Urine Blood SMALL H Ur Leukocyte Esterase LARGE H 06/05/19 06/05/19 06/05/19 22:51 22:51 22:51 Hgb 11.4 L D Hct 35.8 L MCHC 31.9 L RDW 17.5 H Band Neutrophils % 17 H Lymphocytes % (Manual) 7 L Monocytes % (Manual) 15 H Abs Lymphs (Manual) 0.3 L Carbonic Acid ABG pH ABG pCO2 ABG pO2 ABG HCO3 ABG Total CO2 ABG O2 Saturation Potassium 3.4 L BUN 6 L Calcium 7.9 L NT-Pro-B Natriuret Pep 41803 H Total Protein 4.9 L Albumin 2.5 L Urine Protein Urine Blood Ur Leukocyte Esterase Procedures - Central Line Right Femoral Time completed: 23:26 Consent obtained: No - Patient is intubated. She cannot consent for central line. Central line pre-insertion: Sterile PPE donned, Chloraprep applied Central line lumen type: Triple Ultrasound guided: No Line secured with sutures: Yes Central line post-insertion: Blood return from lumens, Sutured, Sterile dressing applied Complications: No - Intubation Orotracheal Airway evaluation: Normal anatomy Medications: Etomidate, Succinylcholine Intubation method: Orotracheal Blade type: Jerson Blade size: 3 ETT size: 7.5 ETT secured at: Gums ETT secured at (cm): 21 Breath Sounds after Intubation: Equal End tidal CO2 confirmed: Yes Ventilator settings: AC Post Intubation Xray: Yes Intubation Complications: No complications Critical Care Note - Critical Care Note Total time excluding time spent on procedures (mins): 120 Comments: Critical care time for management of sepsis, respiratory failure. Discharge - Discharge Clinical Impression: Acute UTI Respiratory failure Qualifiers: Chronicity: acute Respiratory failure complication: hypoxia Qualified Code(s): J96.01 - Acute respiratory failure with hypoxia Pneumonia Qualifiers: Pneumonia type: due to unspecified organism Laterality: right Lung location: upper lobe of lung Qualified Code(s): J18.9 - Pneumonia, unspecified organism Sepsis Qualifiers: Sepsis type: sepsis due to unspecified organism Sepsis acute organ dysfunction status: unspecified Qualified Code(s): A41.9 - Sepsis, unspecified organism Condition: Critical Disposition: ADMITTED INPATIENT Admitting Provider: Osmar ([facility]) Unit Admitted: ICU Referrals: IRIS APARICIO NP [Primary Care Provider] - Follow up as needed
[2019-06-05] MEDS ORDERED: ETOMIDATE INJ/PF 20 MG/10 ML SDV IV ONE (21:56)
[2019-06-05] MEDS ORDERED: SUCCINYLCHOLINE CHLORIDE INJ 200 MG/10 ML VIAL IV ONE (21:56)
[2019-06-05] MEDS ORDERED: CIPROFLOXACIN 400 MG/D5W RTU 400 MG/200 ML RTUPB IV SCH (22:00)
--- NOTE | 2019-06-05 22:04 | RADIOLOGY REPORT (SQ) ---
EXAM DESCRIPTION: XR CHEST 1 VIEW COMPLETED DATE/TME: 06/05/2019 21:08 CLINICAL HISTORY: 63 years, Female, resp failure EXAM DESCRIPTION: CLINICAL HISTORY: resp failure COMPARISON: 06/01/2019 CT abdomen. FINDINGS: Single view of the chest is submitted. Gas projecting above the left hemidiaphragm is likely within the gastric lumen and this appearance is likely artifact of positioning. No lateral view is available for confirmation but the stomach directly abuts the left hemidiaphragm on the recent comparison CT abdomen.. Cardiac silhouette is normal. No focal parenchymal or pleural disease. No acute bony abnormality. There is no significant pulmonary vascular engorgement. IMPRESSION: No evidence of acute cardiopulmonary disease.
[2019-06-05 22:11] LABS: ARTERIAL BLOOD BASE EXCESS -0.6 mmol/L; ARTERIAL BLOOD H2CO3 1.54 mmol/L (1.05-1.35); ARTERIAL BLOOD O2 SATURATION 70.6 % (94-98); ARTERIAL BLOOD PCO2 51.2 mmHg (35-45); ARTERIAL BLOOD PH 7.32 (7.35-7.45); ARTERIAL BLOOD TOTAL CO2 27.5 mmol/L (21-25)
[2019-06-05 22:20] LABS: APPEARANCE,URINE CLOUDY; BILIRUBIN,URINE NEGATIVE (NEGATIVE); COLOR,URINE AMBER; GLUCOSE, URINE NEGATIVE (NEGATIVE); KETONES,URINE NEGATIVE (NEGATIVE); LEUKOCYTE ESTERASE,URINE LARGE (NEGATIVE); NITRITE,URINE NEGATIVE (NEGATIVE); PROTEIN,URINE 30 mg/dL (NEGATIVE); URINE SPECIFIC GRAVITY 1.018; UROBILINOGEN,URINE NEGATIVE mg/dL (<2.0)
[2019-06-05 22:27] LABS: ARTERIAL BLOOD FIO2 MECHANICAL VENT
[2019-06-05 22:31] LABS: ARTERIAL BLOOD PO2 40.2 mmHg (80-100)
[2019-06-05] MEDS ORDERED: FENTANYL CITRATE INJ/PF 100 MCG/2 ML AMPUL IV STA (22:48)
--- NOTE | 2019-06-05 22:50 | RADIOLOGY REPORT (SQ) ---
EXAM DESCRIPTION: XR CHEST 1 VIEW COMPLETED DATE/TME: 06/05/2019 00:00 CLINICAL HISTORY: 63 years, Female, NGT placement COMPARISON: Prior chest x-ray from today's date NUMBER OF VIEWS: 1 TECHNIQUE: Portable chest/upper abdomen LIMITATIONS: None. FINDINGS: Enteric tube with the tip in the stomach. Mild gaseous distention of the stomach. Heart size is normal. Partial visualization of airspace opacities in the right upper lobe. IMPRESSION: Tip of the enteric tube in the stomach copyright 2010 [employer]- All Rights Reserved
[2019-06-05 23:05] LABS: ARTERIAL BLOOD BASE EXCESS 0.4 mmol/L; ARTERIAL BLOOD H2CO3 1.23 mmol/L (1.05-1.35); ARTERIAL BLOOD HCO3 25.2 mmol/L (20-24); ARTERIAL BLOOD O2 SATURATION 97.5 % (94-98); ARTERIAL BLOOD PH 7.41 (7.35-7.45); ARTERIAL BLOOD PO2 97.9 mmHg (80-100); ARTERIAL BLOOD TOTAL CO2 26.4 mmol/L (21-25)
[2019-06-05 23:06] LABS: ARTERIAL BLOOD FIO2 80%
[2019-06-05] MEDS ORDERED: NOREPINEPHRINE BITARTRATE INJ/PF 4 MG/4 ML SDV IV ONE (23:21)
[2019-06-05 23:23] LABS: ALBUMIN 2.5 g/dL (3.5-5.0); ALKALINE PHOSPHATASE 68 U/L (38-126); ANION GAP 6 (5-19); ASPARTATE AMINO TRANSFERASE 14 U/L (14-36); BILIRUBIN,DIRECT 0.2 mg/dL (0.0-0.4); BILIRUBIN,TOTAL 0.8 mg/dL (0.2-1.3); BLOOD UREA NITROGEN 6 mg/dL (7-20); CALCIUM 7.9 mg/dL (8.4-10.2); CARBON DIOXIDE 26 mmol/L (22-30); CHLORIDE 107 mmol/L (98-107); GLUCOSE 108 mg/dL (75-110); POTASSIUM 3.4 mmol/L (3.6-5.0); TOTAL PROTEIN 4.9 g/dL (6.3-8.2)
[2019-06-05] MEDS: DEXTROSE 5%-WATER 250 ML with NOREPINEPHRINE BITARTRATE 4 MG IV PRN ×2 (23:32)
[2019-06-05 23:35] LABS: NT PRO BNP 14200 pg/mL (<125)
[2019-06-05 23:36] LABS: TROPONIN I < 0.012 ng/mL
[2019-06-06 00:08] LABS: HEMATOCRIT 35.8 % (36.0-47.0); MEAN CORPUSCULAR HEMOGLOBIN 27.8 pg (27.0-33.4); MEAN CORPUSCULAR HGB CONC 31.9 g/dL (32.0-36.0); MEAN CORPUSCULAR VOLUME 87 fl (80-97); PLATELET COUNT 310 10^3/uL (150-450); RED BLOOD COUNT 4.12 10^6/uL (3.72-5.28); RED CELL DISTRIBUTION WIDTH 17.5 % (11.5-14.0); WHITE BLOOD COUNT 4.1 10^3/uL (4.0-10.5)
[2019-06-06] MEDS ORDERED: ACETAMINOPHEN 650 MG SUPP.RECT PR ONE (00:08)
[2019-06-06 00:15] LABS: HEMOGLOBIN 11.4 g/dL (12.0-15.5)
[2019-06-06 00:28] LABS: ABSOLUTE LYMPHOCYTES# (MANUAL) 0.3 10^3/uL (0.5-4.7); ABSOLUTE MONOCYTES # (MANUAL) 0.6 10^3/uL (0.1-1.4); BASOPHILS % (MANUAL) 0 % (0-2); EOSINOPHILS % (MANUAL) 0 % (0-6); HYPOCHROMASIA SLIGHT; LYMPHOCYTES % (MANUAL) 7 % (13-45); MONOCYTES % (MANUAL) 15 % (3-13); POLYCHROMASIA SLIGHT; SEGMENTED NEUTROPHILS % (MAN) 61 % (42-78); TOTAL CELLS COUNTED 100; TOXIC GRANULATION SLIGHT; TOXIC VACUOLATION PRESENT
[2019-06-06 00:29] LABS: ANISOCYTOSIS 1+; OVALOCYTES SLIGHT; PLATELET COMMENT ADEQUATE; POIKILOCYTOSIS 1+; SCHISTOCYTES SLIGHT; TEAR DROP CELLS SLIGHT
[2019-06-06 00:30] LABS: BAND NEUTROPHILS % (MANUAL) 17 % (3-5)
[2019-06-06] MEDS ORDERED: VANCOMYCIN HCL INJ 1000 MG VIAL IV ONE (00:41)
[2019-06-06] MEDS ORDERED: DEXTROSE 40% GEL 15 GM TUBE PO PRN ×2 (00:58)
[2019-06-06] MEDS ORDERED: DEXTROSE 50%-WATER 25 GM/50 ML DISP.SYRIN IV PRN (00:58)
[2019-06-06] MEDS ORDERED: GLUCAGON,HUMAN RECOMB 1 MG INJ SUBCUT PRN (00:58)
[2019-06-06] MEDS ORDERED: VANCOMYCIN HCL 0 MG in DEXTROSE 5%-WATER 250 ML IV NR (01:30)
[2019-06-06 02:29] LABS: ARTERIAL BLOOD BASE EXCESS -3.4 mmol/L; ARTERIAL BLOOD FIO2 40%; ARTERIAL BLOOD H2CO3 1.28 mmol/L (1.05-1.35); ARTERIAL BLOOD HCO3 22.3 mmol/L (20-24); ARTERIAL BLOOD O2 SATURATION 87.8 % (94-98); ARTERIAL BLOOD PCO2 42.6 mmHg (35-45); ARTERIAL BLOOD PH 7.34 (7.35-7.45); ARTERIAL BLOOD PO2 56.8 mmHg (80-100); ARTERIAL BLOOD TOTAL CO2 23.6 mmol/L (21-25)
[2019-06-06] MEDS: FENTANYL CITRATE/PF 600 MCG/60 ML BAG IV PRN ×3 (02:42→20:31)
[2019-06-06] MEDS: RINGERS SOLUTION,LACTATED 1,000 ML IV PRN ×3 (02:44→22:24)
[2019-06-06 02:58] LABS: ALKALINE PHOSPHATASE 56 U/L (38-126); ANION GAP 6 (5-19); ASPARTATE AMINO TRANSFERASE 14 U/L (14-36); BILIRUBIN,DIRECT 0.2 mg/dL (0.0-0.4); BILIRUBIN,TOTAL 0.6 mg/dL (0.2-1.3); BLOOD UREA NITROGEN 8 mg/dL (7-20); CALCIUM 7.2 mg/dL (8.4-10.2); CARBON DIOXIDE 24 mmol/L (22-30); CHLORIDE 109 mmol/L (98-107); GLUCOSE 159 mg/dL (75-110); PHOSPHORUS 2.1 mg/dL (2.5-4.5); POTASSIUM 3.6 mmol/L (3.6-5.0); TOTAL PROTEIN 4.1 g/dL (6.3-8.2)
[2019-06-06] MEDS ORDERED: PIPERACILLIN/TAZOBACTAM 3.375 GM VIAL IV ONE (02:59)
[2019-06-06] MEDS ORDERED: INFLUENZA QUAD (6MOS+) 2019-20 VAC 0.5 ML SYR IM ONE (03:05)
[2019-06-06] MEDS ORDERED: PIPERACILLIN/TAZOBACTAM 3.375 GM VIAL IV PRN (03:41)
[2019-06-06] MEDS ORDERED: NORMAL SALINE INJ/PF 0.9% 10 ML SDV IV PRN (03:51)
[2019-06-06] MEDS ORDERED: RINGERS SOLUTION,LACTATED 2,000 ML IV ONE (04:48)
[2019-06-06] MEDS ORDERED: ALBUTEROL SULFATE 0.083% NEB 2.5 MG/3 ML AMPUL NEB PRN (04:50)
[2019-06-06] MEDS ORDERED: MAGNESIUM SULFATE/D5W 1 GM/100 ML RTUPB IV ONE (04:57)
[2019-06-06] MEDS: MAGNESIUM SULFATE/D5W 1 GM/100 ML RTUPB IV SCH ×2 (05:19→06:44)
[2019-06-06] MEDS ORDERED: SODIUM PHOS,M-BASIC-D-BASIC 15 MMOL in NORMAL SALINE 250 ML IV ONE (05:21)
[2019-06-06] MEDS ORDERED: PIPERACILLIN SODIUM/TAZOBACTAM 3.375 GM in NORMAL SALINE 100 ML IV SCH (06:00)
[2019-06-06] MEDS ORDERED: HEPARIN SOD (PORCINE) 5,000 UNIT/ML 1 ML VIAL SUBCUT SCH ×2 (06:00→10:00)
[2019-06-06] MEDS ORDERED: PHENYLEPHRINE HCL INJ/PF 10 MG/1 ML SDV ONE (06:29)
[2019-06-06] MEDS ORDERED: NOREPINEPHRINE BITARTRATE INJ/PF 4 MG/4 ML SDV IV ONE (06:31)
[2019-06-06 06:35] LABS: ARTERIAL BLOOD BASE EXCESS -6.1 mmol/L; ARTERIAL BLOOD HCO3 19.7 mmol/L (20-24); ARTERIAL BLOOD O2 SATURATION 89.2 % (94-98); ARTERIAL BLOOD PCO2 39.9 mmHg (35-45); ARTERIAL BLOOD PH 7.31 (7.35-7.45); ARTERIAL BLOOD PO2 60.7 mmHg (80-100); ARTERIAL BLOOD TOTAL CO2 20.9 mmol/L (21-25)
[2019-06-06 06:36] LABS: ARTERIAL BLOOD FIO2 65%
[2019-06-06] MEDS: DEXTROSE 5%-WATER 250 ML with NOREPINEPHRINE BITARTRATE 4 MG IV PRN ×8 (06:47→23:14)
[2019-06-06] MEDS: DEXTROSE 5%-WATER 250 ML with PHENYLEPHRINE HCL 40 MG IV PRN ×10 (06:50→22:25)
[2019-06-06] MEDS ORDERED: MIDAZOLAM 2 MG/2 ML INJ ONE ×2 (07:02→16:35)
[2019-06-06] MEDS ORDERED: DEXTROSE 5%-WATER 250 ML with VASOPRESSIN 100 UNIT IV PRN ×2 (07:37)
[2019-06-06] MEDS ORDERED: VASOPRESSIN INJ 20 UNIT/1 ML VIAL ONE (07:38)
--- NOTE | 2019-06-06 08:11 | RADIOLOGY REPORT (SQ) ---
EXAM DESCRIPTION: CHEST SINGLE VIEW COMPLETED DATE/TIME: 06/06/2019 6:11 am REASON FOR STUDY: follow up COMPARISON: 06/05/2019 NUMBER OF VIEWS: One view. TECHNIQUE: Single frontal radiographic image of the chest acquired. LIMITATIONS: None. FINDINGS: LUNGS AND PLEURA: Near complete opacification of the right lung. Left lung is clear. No pneumothorax. MEDIASTINUM AND HEART: Stable heart size and mediastinal structures. SUPPORT DEVICES: Appropriate position of endotracheal and nasogastric tubes. BONY STRUCTURES: No acute findings. HARDWARE: None. OTHER: No other significant finding. IMPRESSION: Rehydration versus progressing pneumonia right lung. No pneumothorax. Reading location - IP/workstation name: [email or web address]
[2019-06-06] MEDS: HYDROCORTISONE SOD SUCCINATE INJ/PF 100 MG/2 ML SDV IV SCH ×3 (08:39→21:41)
[2019-06-06] MEDS: IPRATROPIUM/ALBUTEROL 0.5-2.5 MG/3 ML AMPUL NEB SCH ×4 (08:39→21:09)
[2019-06-06 09:10] LABS: ABSOLUTE LYMPHOCYTES (AUTO) 0.4 10^3/uL (0.5-4.7); ABSOLUTE MONOCYTES (AUTO) 0.1 10^3/uL (0.1-1.4); ABSOLUTE NEUT (AUTO) 2.1 10^3/uL (1.7-8.2); BASOPHILS % (AUTO) 0.7 % (0-2); EOSINOPHILS % (AUTO) 0.5 % (0-6); HEMATOCRIT 36.1 % (36.0-47.0); HEMOGLOBIN 11.1 g/dL (12.0-15.5); LYMPHOCYTES % (AUTO) 15.3 % (13-45); MEAN CORPUSCULAR HEMOGLOBIN 27.7 pg (27.0-33.4); MEAN CORPUSCULAR HGB CONC 30.8 g/dL (32.0-36.0); MEAN CORPUSCULAR VOLUME 90 fl (80-97); MONOCYTES % (AUTO) 2.5 % (3-13); TOTAL CELLS COUNTED % (AUTO) 100 %
[2019-06-06 09:33] LABS: PLATELET COUNT 327 10^3/uL (150-450)
[2019-06-06 09:41] LABS: WHITE BLOOD COUNT 2.6 10^3/uL (4.0-10.5)
[2019-06-06 10:15] LABS: ARTERIAL BLOOD BASE EXCESS -8.9 mmol/L; ARTERIAL BLOOD H2CO3 1.48 mmol/L (1.05-1.35); ARTERIAL BLOOD O2 SATURATION 87.4 % (94-98); ARTERIAL BLOOD PCO2 49.3 mmHg (35-45); ARTERIAL BLOOD PO2 63.9 mmHg (80-100); ARTERIAL BLOOD TOTAL CO2 20.5 mmol/L (21-25)
[2019-06-06 10:17] LABS: ARTERIAL BLOOD FIO2 80%
--- NOTE | 2019-06-06 10:18 | CRITICAL CARE ADMISSION REPORT ---
HPI Date:: 06/06/19 Time:: 09:59 Reason for ICU Reason:: acute respiratory failure, septic shock, HCAP HPI: Pt is a 63 yo woman with COPD, CAD, chronic debility who was just discharged from the hospital after being hospitalized for an upper GI bleed. She required 4 units of PRBC and got an EGD on 06/03 which showed an antral ulcer. Pt was discharged to rehab yesterday and presented to the ED this morning with severe respiratory distress. She was intubated by the ED physician. SHe was hypotensive and was given IVF. A central line was placed and pt was started on levophed in the ED. She was found to have a PNA involving the right lung and was treated with vanc, zosyn, and cipro. Upon arrival to the ICU, she continued to be hypotensive and got additional IVF and was started on neosynephrine and vasopressin. - Diagnosis/Plan (1) Acute respiratory failure Qualifiers: Respiratory failure complication: unspecified whether with hypoxia or hypercapnia Qualified Code(s): J96.00 - Acute respiratory failure, unspecified whether with hypoxia or hypercapnia Is this a current diagnosis for this admission?: Yes (2) HCAP (healthcare-associated pneumonia) Is this a current diagnosis for this admission?: Yes (3) Septic shock Is this a current diagnosis for this admission?: Yes (4) Bacteremia Is this a current diagnosis for this admission?: Yes (5) UTI (urinary tract infection) Qualifiers: Urinary tract infection type: acute cystitis Hematuria presence: without hematuria Qualified Code(s): N30.00 - Acute cystitis without hematuria Is this a current diagnosis for this admission?: Yes (6) COPD (chronic obstructive pulmonary disease) Is this a current diagnosis for this admission?: Yes (7) Acute renal failure Qualifiers: Acute renal failure type: unspecified Qualified Code(s): N17.9 - Acute kidney failure, unspecified Is this a current diagnosis for this admission?: Yes (8) PUD (peptic ulcer disease) Is this a current diagnosis for this admission?: Yes (9) Sacral decubitus ulcer Qualifiers: Pressure injury stage: unstageable Qualified Code(s): L89.150 - Pressure ulcer of sacral region, unstageable Is this a current diagnosis for this admission?: Yes Past Medical History Past Medical History: COPD, OA, anemia, GI bleed, KATHLEEN, PUD, CAD, sacral decubitus ulcer, debility Cardiac Medical History: Denies: Coronary Artery Disease, Myocardial Infarction, Hypertension Pulmonary Medical History: Reports: Bronchitis, Chronic Obstructive Pulmonary Disease (COPD) - questionable Denies: Asthma, Pneumonia Neurological Medical History: Denies: Seizures Musculoskeltal Medical History: Reports: Arthritis - generalized Psychiatric Medical History: Reports: Depression Hematology: Reports: Anemia Past Surgical History Past Surgical History: Reports: Cholecystectomy, Orthopedic Surgery - astrid wrists, ankle, Tonsillectomy, Tubal Ligation Social/Family History - Social History Smoking Status: Former Smoker - per previous documentations in chart - unknown if current smoker Frequency of Alcohol Use: None Hx Recreational Drug Use: No Drugs: None Hx Prescription Drug Abuse: No - Medication/Allergies Home Medications: Citalopram Hydrobromide [Celexa 20 mg Tablet] 20 mg PO DAILY 06/06/19 Dicyclomine HCl [Bentyl 20 mg Tablet] 20 mg PO QID 06/06/19 Diltiazem HCl [Cardizem Cd 120 mg Capsule] 120 mg PO DAILY 06/06/19 Fluticasone Propionate [Flonase Nasal [place] 50 Mcg/[place] 16 gm] 2 spray NASL DAILY 06/06/19 Gabapentin Enacarbil [Horizant] 600 mg PO BID 06/06/19 Guaifenesin [Mucinex Sr 600 mg Tablet.sa] 600 mg PO Q12 06/06/19 Latanoprost [Xalatan 0.005% Oph Soln 2.5 ml] 1 drop OU QHS 06/06/19 Nabumetone [Relafen] 750 mg PO BID 06/06/19 Ropinirole HCl [Requip 0.25 mg Tablet] 0.25 mg PO BID 06/06/19 Tizanidine HCl [Zanaflex 4 mg Tablet] 4 mg PO Q6 06/06/19 Allergies/Adverse Reactions: No Known Allergies Allergy (Verified 01/11/17 10:27) Physical Exam Vital Signs: Temp Pulse Resp BP Pulse Ox 97.9 F 93 17 75/51 L 99 06/06/19 07:55 06/06/19 07:55 06/06/19 07:55 06/06/19 07:55 06/06/19 08:00 Intake & Output 06/05/19 06/06/19 06/07/19 06:59 06:59 06:59 Intake Total 2650 Output Total 45 0 Balance 2605 0 Weight 65.4 kg Weight/Height Weight 65.4 kg Height 5 ft 6 in General appearance: PRESENT: no acute distress, thin, well-developed, well- nourished, other - intubated, sedated Head exam: PRESENT: atraumatic, normocephalic Respiratory exam: PRESENT: decreased breath sounds, rhonchi Cardiovascular exam: PRESENT: RRR GI/Abdominal exam: PRESENT: soft, other - non-tender, non-distended Gentrourinary exam: PRESENT: indwelling catheter Extremities exam: PRESENT: other - no edema Laboratory/Radiographs Laboratory Results: 06/06/19 08:50 06/06/19 02:35 06/05/19 06/05/19 06/05/19 21:52 21:52 21:52 WBC Cancelled RBC Cancelled Hgb Cancelled Hct Cancelled MCV Cancelled MCH Cancelled MCHC Cancelled RDW Cancelled Plt Count Cancelled Seg Neutrophils % Cancelled Carbonic Acid HCO3/H2CO3 Ratio ABG pH ABG pCO2 ABG pO2 ABG HCO3 ABG O2 Saturation ABG Base Excess FiO2 Sodium Cancelled Potassium Cancelled Chloride Cancelled Carbon Dioxide Cancelled Anion Gap Cancelled BUN Cancelled Creatinine Cancelled Est GFR ( Amer) Cancelled Est GFR (Non-Af Amer) Cancelled Glucose Cancelled Lactic Acid 1.4 Calcium Cancelled Phosphorus Magnesium Total Bilirubin Cancelled AST Cancelled Alkaline Phosphatase Cancelled Total Protein Cancelled Albumin Cancelled Urine Color Urine Appearance Urine pH Ur Specific [place] Urine Protein Urine Glucose (UA) Urine Ketones Urine Blood Urine Nitrite Ur Leukocyte Esterase Urine WBC (Auto) Urine RBC (Auto) 06/05/19 06/05/19 06/05/19 21:52 21:52 22:35 WBC RBC Hgb Hct MCV MCH MCHC RDW Plt Count Seg Neutrophils % Carbonic Acid 1.54 H 1.23 HCO3/H2CO3 Ratio 16:1 20:1 ABG pH 7.32 L 7.41 ABG pCO2 51.2 H 41.0 ABG pO2 40.2 L* 97.9 ABG HCO3 26.0 H 25.2 H ABG O2 Saturation 70.6 L 97.5 ABG Base Excess -0.6 0.4 FiO2 MECHANICAL VENT 80% Sodium Potassium Chloride Carbon Dioxide Anion Gap BUN Creatinine Est GFR ( Amer) Est GFR (Non-Af Amer) Glucose Lactic Acid Calcium Phosphorus Magnesium Total Bilirubin AST Alkaline Phosphatase Total Protein Albumin Urine Color NATE Urine Appearance CLOUDY Urine pH 5.0 Ur Specific [place] 1.018 Urine Protein 30 H Urine Glucose (UA) NEGATIVE Urine Ketones NEGATIVE Urine Blood SMALL H Urine Nitrite NEGATIVE Ur Leukocyte Esterase LARGE H Urine WBC (Auto) 151 Urine RBC (Auto) 20 06/05/19 06/05/19 06/06/19 22:51 22:51 02:15 WBC 4.1 RBC 4.12 Hgb 11.4 L D Hct 35.8 L MCV 87 MCH 27.8 MCHC 31.9 L RDW 17.5 H Plt Count 310 Seg Neutrophils % Not Reportable Carbonic Acid 1.28 HCO3/H2CO3 Ratio 17:1 ABG pH 7.34 L ABG pCO2 42.6 ABG pO2 56.8 L ABG HCO3 22.3 ABG O2 Saturation 87.8 L ABG Base Excess -3.4 FiO2 40% Sodium 139.3 Potassium 3.4 L Chloride 107 Carbon Dioxide 26 Anion Gap 6 BUN 6 L Creatinine 0.66 Est GFR ( Amer) > 60 Est GFR (Non-Af Amer) Glucose 108 Lactic Acid Calcium 7.9 L Phosphorus Magnesium Total Bilirubin 0.8 AST 14 Alkaline Phosphatase 68 Total Protein 4.9 L Albumin 2.5 L Urine Color Urine Appearance Urine pH Ur Specific [place] Urine Protein Urine Glucose (UA) Urine Ketones Urine Blood Urine Nitrite Ur Leukocyte Esterase Urine WBC (Auto) Urine RBC (Auto) 06/06/19 06/06/19 06/06/19 02:35 06:23 08:50 WBC 2.6 L D RBC 3.00 L Hgb 11.1 L Hct 36.1 MCV 90 MCH 27.7 MCHC 30.8 L RDW 18.0 H Plt Count 327 Seg Neutrophils % 81.0 H Carbonic Acid 1.20 HCO3/H2CO3 Ratio 16:1 ABG pH 7.31 L ABG pCO2 39.9 ABG pO2 60.7 L ABG HCO3 19.7 L ABG O2 Saturation 89.2 L ABG Base Excess -6.1 FiO2 65% Sodium 138.5 Potassium 3.6 Chloride 109 H Carbon Dioxide 24 Anion Gap 6 BUN 8 Creatinine 0.63 Est GFR ( Amer) > 60 Est GFR (Non-Af Amer) Glucose 159 H Lactic Acid Calcium 7.2 L Phosphorus 2.1 L Magnesium 1.5 L Total Bilirubin 0.6 AST 14 Alkaline Phosphatase 56 Total Protein 4.1 L Albumin 2.0 L Urine Color Urine Appearance Urine pH Ur Specific [place] Urine Protein Urine Glucose (UA) Urine Ketones Urine Blood Urine Nitrite Ur Leukocyte Esterase Urine WBC (Auto) Urine RBC (Auto) 06/05/19 22:51 Blood Blood Culture (PCR) - Final Escherichia Coli 06/05/19 23:46 Blood Blood Culture (PCR) - Final Escherichia Coli 06/05/19 06/05/19 21:52 22:51 Troponin I Cancelled < 0.012 NT-Pro-B Natriuret Pep Cancelled [id number] H Impressions: Chest X-Ray 06/06/19 06:00 IMPRESSION: Rehydration versus progressing pneumonia right lung. No pneumothorax. All labs, radiographs, diagnostic studies and EKGs were personally reviewed: Yes Critical Time Critical Time (minutes): 60 -: The care of a critically ill patient is dynamic. This note represents a static moment in the admission process. Orders and treatments may be given simultaneou sly and urgently, and time is not dairy supplies sales representative of the treatment process. This patient requires Critical Care secondary to life threatening organ or limb dysfunction. Without Critical Care services, the patient is at risk for increased mortality and morbidity. Provider Note Provider Note: Assessment: Critically ill 63 yo woman with acute respiratory failure, ARDS, HCAP, septic shock, KATHLEEN, PUD, recent GI bleed, GNR bacteremia, UTI, sacral decubitus ulcer. Plan: 1. Respiratory: acute respiratory failure. Vent day 1. Vent settings adjusted. Will repeat ABG 2. Pulmonary: ARDS, HCAP, COPD. Day 1 vanc, cefepime, cipro. Continue bronchodilators. Start steroids. Will check CT of chest 3. CV: hypotension due to septic shock. Continue IVF. Continue levophed, vasopressin, yraa. Will order echocardiogram 4. ID: septic shock, HCAP, GNR bacteremia, UTI. Day 1 vanc, cefepime, cipro. sputum culture and influenza pending 5. Renal: KATHLEEN. Cr is 0.63 today, but pt is oliguric. Had KATHLEEN during her last hospitalization. Continue IVF 6. GI/Surg: PUD and recent GI bleed requring 4 units PRBC last admission. Protonix 40 mg IV BID. s/p EGD on 06/03 7. Heme: Hg stable at 11.5 8. Endocrine: Accuchecks, SSI. Stress dose steroids 9. Wound: sacral decubitus ulcer, present on admission 10. Nutrition: NPO for now 11. Prophylaxis: scds, sq heparin 12. Ethics: full code. Poor prognosis. Will attempt to contact next of kin Critical care time = 60 min, excluding procedures
[2019-06-06] MEDS: PANTOPRAZOLE SODIUM 40 MG VIAL IV SCH ×2 (10:42→21:45)
[2019-06-06] MEDS: CIPROFLOXACIN 400 MG/D5W RTU 400 MG/200 ML RTUPB IV SCH ×2 (10:42→22:04)
[2019-06-06] MEDS: CEFEPIME 1 GM/D5W RTU 1 GM/50 ML RTUPB IV SCH ×2 (10:43→21:49)
--- NOTE | 2019-06-06 11:19 | Progress Note ---
Provider Note Provider Note: Critical Care Attending Procedure Note Procedure: right radial arterial line Indication: hypotension, septic shock Technique: area was prepped and draped in sterile fashion. Full barrier precautions were used. The arterial catheter was inserted using the modified seldinger technique. There was a good waveform on the monitor. Pt tolerated procedure well.
--- NOTE | 2019-06-06 13:43 | RADIOLOGY REPORT (SQ) ---
EXAM DESCRIPTION: CT CHEST WITHOUT COMPLETED DATE/TIME: 06/06/2019 1:20 pm REASON FOR STUDY: PNA, ARDS COMPARISON: None. TECHNIQUE: CT scan performed of the chest without intravenous contrast. Images reviewed with lung, soft tissue and bone windows. Reconstructed coronal and sagittal MPR images reviewed. All images st ored on PACS. All CT scanners at this facility use dose modulation, iterative reconstruction, and/or weight based d osing when appropriate to reduce radiation dose to as low as reasonably achievable (ALARA). [facility]: Dose Right [facility]: CareDose [facility]: Dose Right [facility]: Teradose 4D [facility]: [employer] RADIATION DOSE: CT Rad equipment meets quality standard of care and radiation dose reduction techniq ues were employed. CTDIvol: 13.7 mGy. DLP: 523 mGy-cm. mGy. LIMITATIONS: No technical limitations. FINDINGS: LUNGS AND PLEURA: There is dense consolidation in the right upper lobe and right middle lo be. Air bronchograms are seen. No infiltrate is seen in the left lung. There is a moderate right p leural effusion. Mild atelectatic changes seen in the right lower lobe. HILAR AND MEDIASTINAL STRUCTURES: No identified masses or abnormal nodes. No obvious aneurysm. HEART AND VASCULAR STRUCTURES: No aneurysm. No pericardial effusion. UPPER ABDOMEN: No significant findings. Limited exam. THYROID AND OTHER SOFT TISSUES: No masses. No adenopathy. BONES: No significant finding. HARDWARE: Endotracheal tube. NG tube. OTHER: No other significant findings. IMPRESSION: Right upper lobe and middle lobe pneumonia. Right pleural effusion. Mild atelectatic c hanges in the right lower lobe. The left lung is clear. TECHNICAL DOCUMENTATION: JOB ID: [id number] Quality ID # [id number]: Final reports with documentation of one or more dose reduction techniques (e.g., Au tomated exposure control, adjustment of the mA and/or kV according to patient size, use of iterative reconstruction technique) 2010 [place] [employer]- All Rights Reserved Reading location - IP/workstation name: [email or web address]
[2019-06-06] MEDS: VANCOMYCIN HCL 750 MG in DEXTROSE 5%-WATER 250 ML IV SCH (17:41)
[2019-06-06] MEDS: ALBUMIN HUMAN 12.5 GM/50 ML RTUINJ IV SCH ×4 (18:59→20:20)
--- NOTE | 2019-06-06 19:25 | CRITICAL CARE ADMISSION REPORT ---
HPI Date:: 06/06/19 Time:: 02:12 Reason for ICU Reason:: PNA, acute respiratory failure, septic shock HPI: HPI obtained from ED notes and previous admission documents: Mrs. Graf is a 63yr old F who has PMHx of chronic pain syndrome, depression, COPD not on home meds, remote hx of cervical CA with HGSIL ~30yrs ago, splenic artery aneurysm measuring 1.8cm noted on abd MRI 07/2015, osteoarthritis and duodenal ulcer with anemia was brought to the ED via EMS from a rehab facility for complaints of SOB, ESVIN, cough and congestion. Mrs. Graf had a recent admission to this hospital for weakness and KATHLEEN where she was discharged to the rehab facility yesterday. Per ED notes, EMS reported pt was hypoxic en route and placed on CPAP with sats in the 70s while in CPAP. ED provided noted that pt was having increased work of breathing and decision was made to intubate her shortly after arrival for impending respiratory failure. Chest Xray showing large right upper and middle infiltrate. She was noted to be hypotensive in ED and required CVC and levophed to be started. ED initiated Vanco, Cipro and Zosyn for presumed HCAP and pyuria. Pt will be admitted to ICU for continued close monitoring while on MV and BP support. Of note, on pts previous admission (06/01/19), she was found to have a Hgb in the ED of 4.1 with KATHLEEN. She received total of 4u PRBC. EGD was performed to find "very large antral, prepyloric ulcer without active bleeding" and biposy for H. pylori was obtained at that time. Recs for iron supplementation for anemia, BID ppi ad carafate were given at this time. Psych was consulted during this visit for concerns with depression and pt being malnourished. Per psych report, pt states she has worsening depression around May because it is the 2yr anniversary of the passing of her and she reported that her cat recently and she was too depressed to bury the cat. Per the not, it is believed the cat is still in her home and services were offered to assist with removing the cat but the pt refused, stating she wanted to take care or it on her own. Pt denied SI/HI and had insight to her depression with plans to move to [place] to be closer to family after her stay at rehab facility. Recommendations were made to continue PO meds and no acute psych services were needed at that time. She was transferred to SNF on 06/04/19. - Diagnosis/Plan (1) Respiratory failure Qualifiers: Chronicity: acute Respiratory failure complication: hypoxia Qualified Code(s): J96.01 - Acute respiratory failure with hypoxia Is this a current diagnosis for this admission?: Yes (2) Pneumonia Qualifiers: Pneumonia type: due to unspecified organism Laterality: right Lung location: upper lobe of lung Qualified Code(s): J18.9 - Pneumonia, unspecified organism Is this a current diagnosis for this admission?: Yes (3) Sepsis Qualifiers: Sepsis type: sepsis due to unspecified organism Sepsis acute organ dys function status: unspecified Qualified Code(s): A41.9 - Sepsis, unspecified organism Is this a current diagnosis for this admission?: Yes (5) Anemia Qualifiers: Anemia type: iron deficiency Iron deficiency anemia type: chronic blood loss Qualified Code(s): D50.0 - Iron deficiency anemia secondary to blood loss (chronic) Is this a current diagnosis for this admission?: Yes (6) Decubitus ulcer Qualifiers: Pressure injury location: sacral region Pressure injury stage: stage 2 Qualified Code(s): L89.152 - Pressure ulcer of sacral region, stage 2 Is this a current diagnosis for this admission?: Yes (7) Depression Is this a current diagnosis for this admission?: Yes (8) PUD (peptic ulcer disease) Is this a current diagnosis for this admission?: Yes (9) COPD (chronic obstructive pulmonary disease) Is this a current diagnosis for this admission?: Yes (10) CHRONC PAIN Is this a current diagnosis for this admission?: Yes (11) Osteoarthritis Is this a current diagnosis for this admission?: Yes - . Plan Summary: Pulm: * acute hypoxic respiratory failure requiring intubation - continue on MV, titrate FiO2 as tolerated * CXR showing large right upper and middle lobe infiltrates - sputum cx pending, CXR in the AM - consider CT chest if no improvement * documented hx oc COPD in previous admissions - not on home meds * Elevate HOB, suction PRN, chlorehexadine CV: * Hypotension requiring levophed - titrate as tolerated to goal MAP >65 * maintain tele monitoring * EKG done in ED with QTc <400 * [place] [address] Neuro: * Hx of chronic pain - hold PO pain meds * Fentanyl gtt for sedation with Q2hr neuro assessments for acute changes * noted hx of depression - psych assessment with recs on last admission to continue Celexa - consider re-eval by psych with ICU admission and intubation Renal: * recent hx of KATHLEEN that resolved prior to DC on 06/04 - current Cr stable at 0.66 * maintain strict I&O, trend renal indices and replace lytes PRN * Noted hypokalemia on initial labs in ED without replacement - pending repeat labs GI/: * Hx of duodenal ulcer with recent EGD findings of pre-pyloric ulcer - continue BID PPI while intubated * recent biopsied specimen negative for H. pylori, metaplasia, dysplasia or malignancy * begin enteral feeds via NGT when able * Remote hx of 1.8cm splenic aneurysm in 2016 - consider repeat imaging when stable for monitoring * UA positive - urine culture pending, noted hx of e.coli UTI in past ID: * Large RUL/RML infiltrate on CXR - blood and sputum cultures pending - continue Vanco, Cipro and Zosyn * positive UA - culture pending * unfortunately, unable to obtain a pneumococcal urine AG and legionella AG test in house and would take 3-5 for results Heme/onc: * Hx of anemia likely 2/2 GI bleeding - current H/H stable, will continue to monitor, no s/s of active bleeding * SCDs ordered for DVT ppx - will hold pharmacologic ppx with very recent documented hx of GI bleeding * remote hx of cervical CA with HGSIL ~30yrs ago - unable to find documentation of total hysterectomy MSK/Skin: * previously documented sacral ulcer from previous admission - continue frequent turn and position * hx of osteoarthritis * hx of C5-C6 cervical disc replacements (date unknown) * PT services requested for progressive mobility while in the ICU Pt is full code Past Medical History Past Medical History: Per HPI Cardiac Medical History: Denies: Coronary Artery Disease, Myocardial Infarction, Hypertension Pulmonary Medical History: Reports: Bronchitis, Chronic Obstructive Pulmonary Disease (COPD) - questionable Denies: Asthma, Pneumonia Neurological Medical History: Denies: Seizures Musculoskeltal Medical History: Reports: Arthritis - generalized Psychiatric Medical History: Reports: Depression Hematology: Reports: Anemia Past Surgical History Past Surgical History: Reports: Cholecystectomy, Orthopedic Surgery - astrid wrists, ankle, Tonsillectomy, Tubal Ligation Social/Family History - Social History Smoking Status: Former Smoker - per previous documentations in chart - unknown if current smoker Frequency of Alcohol Use: None Hx Recreational Drug Use: No Drugs: None Hx Prescription Drug Abuse: No - Medication/Allergies Home Medications: Citalopram Hydrobromide [Celexa 20 mg Tablet] 20 mg PO DAILY 06/06/19 Dicyclomine HCl [Bentyl 20 mg Tablet] 20 mg PO QID 06/06/19 Diltiazem HCl [Cardizem Cd 120 mg Capsule] 120 mg PO DAILY 06/06/19 Fluticasone Propionate [Flonase Nasal [place] 50 Mcg/[place] 16 gm] 2 spray NASL DAILY 06/06/19 Gabapentin Enacarbil [Horizant] 600 mg PO BID 06/06/19 Guaifenesin [Mucinex Sr 600 mg Tablet.sa] 600 mg PO Q12 06/06/19 Latanoprost [Xalatan 0.005% Oph Soln 2.5 ml] 1 drop OU QHS 06/06/19 Nabumetone [Relafen] 750 mg PO BID 06/06/19 Ropinirole HCl [Requip 0.25 mg Tablet] 0.25 mg PO BID 06/06/19 Tizanidine HCl [Zanaflex 4 mg Tablet] 4 mg PO Q6 06/06/19 Allergies/Adverse Reactions: No Known Allergies Allergy (Verified 01/11/17 10:27) Review of Systems ROS unobtainable: Due to endotracheal tube Physical Exam Vital Signs: Temp Pulse Resp BP Pulse Ox 121 H 22 H 134/87 H 94 06/06/19 01:58 06/06/19 01:58 06/06/19 01:58 06/06/19 01:58 Intake & Output 06/04/19 06/05/19 06/06/19 06:59 06:59 06:59 Intake Total 2279 Balance 2279 General appearance: PRESENT: no acute distress, well-developed, well-nourished Head exam: PRESENT: atraumatic, normocephalic Eye exam: PRESENT: conjunctiva pink, PERRLA Ear exam: PRESENT: normal external ear exam Mouth exam: PRESENT: neck supple Neck exam: ABSENT: JVD, tracheal deviation Respiratory exam: PRESENT: rhonchi - right upper. ABSENT: wheezes Cardiovascular exam: PRESENT: RRR, +S1, +S2 Vascular exam: PRESENT: normal capillary refill GI/Abdominal exam: PRESENT: normal bowel sounds, soft. ABSENT: mass, organolmegaly Extremities exam: PRESENT: +1 edema Tubes/Lines: PRESENT: Endotracheal Tube, Central Line, Nasogastic Tube Laboratory/Radiographs Laboratory Results: 06/05/19 22:51 06/05/19 22:51 06/05/19 06/05/19 06/05/19 21:52 21:52 21:52 WBC Cancelled RBC Cancelled Hgb Cancelled Hct Cancelled MCV Cancelled MCH Cancelled MCHC Cancelled RDW Cancelled Plt Count Cancelled Seg Neutrophils % Cancelled Carbonic Acid HCO3/H2CO3 Ratio ABG pH ABG pCO2 ABG pO2 ABG HCO3 ABG O2 Saturation ABG Base Excess FiO2 Sodium Cancelled Potassium Cancelled Chloride Cancelled Carbon Dioxide Cancelled Anion Gap Cancelled BUN Cancelled Creatinine Cancelled Est GFR ( Amer) Cancelled Est GFR (Non-Af Amer) Cancelled Glucose Cancelled Lactic Acid 1.4 Calcium Cancelled Total Bilirubin Cancelled AST Cancelled Alkaline Phosphatase Cancelled Total Protein Cancelled Albumin Cancelled Urine Color Urine Appearance Urine pH Ur Specific [place] Urine Protein Urine Glucose (UA) Urine Ketones Urine Blood Urine Nitrite Ur Leukocyte Esterase Urine WBC (Auto) Urine RBC (Auto) 06/05/19 06/05/19 06/05/19 21:52 21:52 22:35 WBC RBC Hgb Hct MCV MCH MCHC RDW Plt Count Seg Neutrophils % Carbonic Acid 1.54 H 1.23 HCO3/H2CO3 Ratio 16:1 20:1 ABG pH 7.32 L 7.41 ABG pCO2 51.2 H 41.0 ABG pO2 40.2 L* 97.9 ABG HCO3 26.0 H 25.2 H ABG O2 Saturation 70.6 L 97.5 ABG Base Excess -0.6 0.4 FiO2 MECHANICAL VENT 80% Sodium Potassium Chloride Carbon Dioxide Anion Gap BUN Creatinine Est GFR ( Amer) Est GFR (Non-Af Amer) Glucose Lactic Acid Calcium Total Bilirubin AST Alkaline Phosphatase Total Protein Albumin Urine Color NATE Urine Appearance CLOUDY Urine pH 5.0 Ur Specific [place] 1.018 Urine Protein 30 H Urine Glucose (UA) NEGATIVE Urine Ketones NEGATIVE Urine Blood SMALL H Urine Nitrite NEGATIVE Ur Leukocyte Esterase LARGE H Urine WBC (Auto) 151 Urine RBC (Auto) 20 06/05/19 06/05/19 22:51 22:51 WBC 4.1 RBC 4.12 Hgb 11.4 L D Hct 35.8 L MCV 87 MCH 27.8 MCHC 31.9 L RDW 17.5 H Plt Count 310 Seg Neutrophils % Not Reportable Carbonic Acid HCO3/H2CO3 Ratio ABG pH ABG pCO2 ABG pO2 ABG HCO3 ABG O2 Saturation ABG Base Excess FiO2 Sodium 139.3 Potassium 3.4 L Chloride 107 Carbon Dioxide 26 Anion Gap 6 BUN 6 L Creatinine 0.66 Est GFR ( Amer) > 60 Est GFR (Non-Af Amer) Glucose 108 Lactic Acid Calcium 7.9 L Total Bilirubin 0.8 AST 14 Alkaline Phosphatase 68 Total Protein 4.9 L Albumin 2.5 L Urine Color Urine Appearance Urine pH Ur Specific [place] Urine Protein Urine Glucose (UA) Urine Ketones Urine Blood Urine Nitrite Ur Leukocyte Esterase Urine WBC (Auto) Urine RBC (Auto) 06/05/19 06/05/19 21:52 22:51 Troponin I Cancelled < 0.012 NT-Pro-B Natriuret Pep Cancelled [id number] H Impressions: Chest X-Ray 06/05/19 21:08 IMPRESSION: No evidence of acute cardiopulmonary disease. Critical Time Critical Time (minutes): 60 - not including procedures -: The care of a critically ill patient is dynamic. This note represents a static moment in the admission process. Orders and treatments may be given simultaneously and urgently, and time is not outbound sales representative of the treatment process. This patient requires Critical Care secondary to life threatening organ or limb dysfunction. Without Critical Care services, the patient is at risk for increased mortality and morbidity.
--- NOTE | 2019-06-06 21:41 | RADIOLOGY REPORT (SQ) ---
EXAM DESCRIPTION: XR ABDOMEN 1 VIEW (KUB) COMPLETED DATE/TME: 06/06/2019 00:00 CLINICAL HISTORY: 63 years Female ,abd distention and pain COMPARISON: 06/18/2015. TECHNIQUE: Single view of the abdomen was provided.. FINDINGS: Nasogastric tube in place. No free intraperitoneal air. Degenerative changes in the spine with laminectomy changes in the lumbar spine. Scoliosis. Catheter in the right inguinal region likely a femoral vein catheter. No dilated loops of bowel to suggest obstruction. IMPRESSION: Nasogastric tube in the gastric body Femoral line in place on the right
[2019-06-06 22:01] LABS: A TYPE INFLUENZA AG NEGATIVE (NEGATIVE); B INFLUENZA AG NEGATIVE (NEGATIVE)
[2019-06-06] MEDS: MIDAZOLAM 2 MG/2 ML INJ IV PRN (23:57)
[2019-06-07] MEDS: IPRATROPIUM/ALBUTEROL 0.5-2.5 MG/3 ML AMPUL NEB SCH ×6 (00:38→20:51)
--- NOTE | 2019-06-07 03:42 | Progress Note ---
Provider Note Provider Note: Spoke with two sons at bedside after they arrived on flight from [place]. Updated them on pts current condition and plan of care per attending. Both sons stated they were aware pt had been debilitated with depression and this had effected her with the anniversary of her passing and then her cat passing but they were not aware how ill she was as she did not let them know over the phone. Sons brought up code status and stated they were not ready to make a decision at this time and the goal would be to take her back to [place] to live with them if she were to recover. Informed them of potential findings of cat at pts home; they stated they had a suspicion and were prepared for what they might find. They will return in the AM. All questions answered to family's satisfaction.
[2019-06-07 03:51] LABS: HEMATOCRIT 31.1 % (36.0-47.0); HEMOGLOBIN 9.8 g/dL (12.0-15.5); MEAN CORPUSCULAR HGB CONC 31.5 g/dL (32.0-36.0); MEAN CORPUSCULAR VOLUME 89 fl (80-97); PLATELET COUNT 147 10^3/uL (150-450)
[2019-06-07 03:52] LABS: PARTIAL THROMBOPLASTIN TIME 45.5 SEC (23.5-35.8)
[2019-06-07 03:57] LABS: WHITE BLOOD COUNT 6.6 10^3/uL (4.0-10.5)
[2019-06-07 03:59] LABS: INTERNATIONAL RATION (INR) 2.07
[2019-06-07] MEDS: MIDAZOLAM 2 MG/2 ML INJ IV PRN ×2 (03:59→09:41)
[2019-06-07 04:00] LABS: PROTHROMBIN TIME 23.6 SEC (11.4-15.4)
[2019-06-07 04:06] LABS: ALBUMIN 2.1 g/dL (3.5-5.0); ALKALINE PHOSPHATASE 37 U/L (38-126); ANION GAP 11 (5-19); ASPARTATE AMINO TRANSFERASE 14 U/L (14-36); BILIRUBIN,DIRECT 0.4 mg/dL (0.0-0.4); BILIRUBIN,TOTAL 0.7 mg/dL (0.2-1.3); BLOOD UREA NITROGEN 15 mg/dL (7-20); CARBON DIOXIDE 18 mmol/L (22-30); CHLORIDE 100 mmol/L (98-107); GLUCOSE 73 mg/dL (75-110)
[2019-06-07] MEDS: DEXTROSE 5%-WATER 250 ML with PHENYLEPHRINE HCL 40 MG IV PRN ×10 (04:10→23:10)
[2019-06-07 04:23] LABS: ABSOLUTE LYMPHOCYTES# (MANUAL) 0.8 10^3/uL (0.5-4.7); ABSOLUTE MONOCYTES # (MANUAL) 0.8 10^3/uL (0.1-1.4); BAND NEUTROPHILS % (MANUAL) 8 % (3-5); BASOPHILS % (MANUAL) 0 % (0-2); EOSINOPHILS % (MANUAL) 0 % (0-6); LYMPHOCYTES % (MANUAL) 12 % (13-45); MONOCYTES % (MANUAL) 12 % (3-13); SEGMENTED NEUTROPHILS % (MAN) 68 % (42-78); TOTAL CELLS COUNTED 100
[2019-06-07 04:25] LABS: ANISOCYTOSIS 2+; BURR CELLS 2+; PLATELET COMMENT DECREASED; POIKILOCYTOSIS 2+; TOXIC VACUOLATION PRESENT
[2019-06-07] MEDS: DEXTROSE 5%-WATER 250 ML with NOREPINEPHRINE BITARTRATE 4 MG IV PRN ×6 (05:13→15:23)
[2019-06-07] MEDS: VANCOMYCIN HCL 750 MG in DEXTROSE 5%-WATER 250 ML IV SCH (05:22)
[2019-06-07] MEDS: HYDROCORTISONE SOD SUCCINATE INJ/PF 100 MG/2 ML SDV IV SCH ×3 (05:22→21:15)
[2019-06-07] MEDS: FENTANYL CITRATE/PF 600 MCG/60 ML BAG IV PRN ×2 (07:34→23:11)
--- NOTE | 2019-06-07 08:22 | RADIOLOGY REPORT (SQ) ---
EXAM DESCRIPTION: CHEST SINGLE VIEW COMPLETED DATE/TIME: 06/07/2019 6:08 am REASON FOR STUDY: respiratory failure COMPARISON: EXAM PARAMETERS: NUMBER OF VIEWS: One view. TECHNIQUE: Single frontal radiographic view of the chest acquired. RADIATION DOSE: NA LIMITATIONS: None. FINDINGS: LUNGS AND PLEURA: Improved aeration within the right lung with persistent multifocal dense opacities, greatest within the upper lobe. Unremarkable left hemithorax. Trace right effusion. No pneumothorax. MEDIASTINUM AND HILAR STRUCTURES: No masses. Contour normal. HEART AND VASCULAR STRUCTURES: Stable. BONES: No acute findings. HARDWARE: Endotracheal tube tip overlies midthoracic trachea. Enteric tube tip overlies gastric body . OTHER: No other significant finding. IMPRESSION: Improved aeration of the right lung with persistent multifocal airspace disease. TECHNICAL DOCUMENTATION: JOB ID: [id number] [employer]- All Rights Reserved Reading location - IP/workstation name: [email or web address]
[2019-06-07] MEDS ORDERED: CALCIUM CHLORIDE 10% PF/INJ 1000 MG/10 ML SDV IV SCH (08:45)
[2019-06-07] MEDS ORDERED: VANCOMYCIN HCL 0 MG in DEXTROSE 5%-WATER 250 ML IV NR (08:45)
[2019-06-07] MEDS: CEFEPIME 1 GM/D5W RTU 1 GM/50 ML RTUPB IV SCH ×2 (09:04→21:14)
[2019-06-07] MEDS: ALBUMIN HUMAN 12.5 GM/50 ML RTUINJ IV SCH ×4 (09:04→12:18)
[2019-06-07 09:10] LABS: ARTERIAL BLOOD BASE EXCESS -12.2 mmol/L; ARTERIAL BLOOD H2CO3 1.32 mmol/L (1.05-1.35); ARTERIAL BLOOD HCO3 15.7 mmol/L (20-24); ARTERIAL BLOOD O2 SATURATION 91.4 % (94-98); ARTERIAL BLOOD PO2 75.5 mmHg (80-100); ARTERIAL BLOOD TOTAL CO2 17.1 mmol/L (21-25)
[2019-06-07 09:13] LABS: ARTERIAL BLOOD PH 7.17 (7.35-7.45)
[2019-06-07] MEDS ORDERED: PHYTONADIONE INJ 10 MG/1 ML AMPULE SUBCUT ONE (09:15)
[2019-06-07] MEDS: DEXTROSE 5%-WATER 1000 ML 1,000 ML with SODIUM BICARBONATE 150 MEQ IV PRN ×4 (09:20→17:07)
[2019-06-07] MEDS: PANTOPRAZOLE SODIUM 40 MG VIAL IV SCH ×2 (09:22→21:14)
[2019-06-07] MEDS ORDERED: CALCIUM GLUCONATE 1000 MG/10 ML INJ IV ONE (09:30)
[2019-06-07 11:13] LABS: PATH REVIEW PATHOLOGIST REVIEWED
--- NOTE | 2019-06-07 13:37 | PDOC CRITICAL CARE PROG REPORT ---
General Date:: 06/07/19 - Critical Care Attending Resuscitation Status: Do Not Intubate Events in the past 12 to 24 Hours:: Pt continue to deteriorate. She is on maximal doses of three pressors. She is requiring 100% FIO2 and 16 of PEEP. SHe remains oliguric. Sons are at the bedside. Reason for ICU Addmission:: PNA, acute respiratory failure, septic shock Physical Exam Vital Signs: Temp Pulse Resp BP Pulse Ox 99.7 F 102 H 16 93/81 L 98 06/07/19 12:53 06/07/19 12:53 06/07/19 12:53 06/07/19 12:53 06/07/19 12:53 Intake & Output 06/06/19 06/07/19 06/08/19 06:59 06:59 06:59 Intake Total 2650 5035 540 Output Total 45 124 45 Balance 2605 4911 495 Weight 65.4 kg 74.6 kg Weight/Height Weight 74.6 kg Height 5 ft 6 in General appearance: PRESENT: well-developed, well-nourished, other - intubated, sedated, ill-appearing. Head exam: PRESENT: atraumatic, normocephalic Respiratory exam: PRESENT: rhonchi, other - intubated, labored breathing Cardiovascular exam: PRESENT: tachycardia GI/Abdominal exam: PRESENT: soft, other - non-tender, non-distended Gentrourinary exam: PRESENT: indwelling catheter Laboratory/Radiographs Laboratory Results: 06/07/19 03:37 06/07/19 03:37 06/07/19 06/07/19 06/07/19 03:37 03:37 08:43 WBC 6.6 D RBC 3.50 L Hgb 9.8 L Hct 31.1 L MCV 89 MCH 28.0 MCHC 31.5 L RDW 18.0 H Plt Count 147 L Seg Neutrophils % Not Reportable Carbonic Acid HCO3/H2CO3 Ratio ABG pH ABG pCO2 ABG pO2 ABG HCO3 ABG O2 Saturation ABG Base Excess FiO2 Sodium 129.4 L Potassium 4.0 Chloride 100 Carbon Dioxide 18 L Anion Gap 11 BUN 15 Creatinine 1.31 H Est GFR ( Amer) 49 L Glucose 73 L Calcium 7.0 L* Magnesium 1.7 Total Bilirubin 0.7 AST 14 Alkaline Phosphatase 37 L Total Protein 4.0 L Albumin 2.1 L 06/07/19 08:55 WBC RBC Hgb Hct MCV MCH MCHC RDW Plt Count Seg Neutrophils % Carbonic Acid 1.32 HCO3/H2CO3 Ratio 11:1 ABG pH 7.17 L* ABG pCO2 44.0 ABG pO2 75.5 L ABG HCO3 15.7 L ABG O2 Saturation 91.4 L ABG Base Excess -12.2 FiO2 55% Sodium Potassium Chloride Carbon Dioxide Anion Gap BUN Creatinine Est GFR ( Amer) Glucose Calcium Magnesium Total Bilirubin AST Alkaline Phosphatase Total Protein Albumin 06/05/19 23:46 Blood Blood Culture (PCR) - Final Escherichia Coli 06/05/19 22:51 Blood Blood Culture (PCR) - Final Escherichia Coli 06/05/19 06/05/19 21:52 22:51 Troponin I Cancelled < 0.012 NT-Pro-B Natriuret Pep Cancelled [id number] H Impressions: Chest CT 06/06/19 00:00 IMPRESSION: Right upper lobe and middle lobe pneumonia. Right pleural effusion. Mild atelectatic changes in the right lower lobe. The left lung is clear. KUB X-Ray 06/06/19 00:00 IMPRESSION: Nasogastric tube in the gastric body Femoral line in place on the right Chest X-Ray 06/07/19 06:00 IMPRESSION: Improved aeration of the right lung with persistent multifocal airspace disease. Assessment and Plan - Diagnosis (1) Acute respiratory failure Qualifiers: Respiratory failure complication: unspecified whether with hypoxia or hypercapnia Qualified Code(s): J96.00 - Acute respiratory failure, unspecified whether with hypoxia or hypercapnia Is this a current diagnosis for this admission?: Yes (2) HCAP (healthcare-associated pneumonia) Is this a current diagnosis for this admission?: Yes (3) Septic shock Is this a current diagnosis for this admission?: Yes (4) Bacteremia Is this a current diagnosis for this admission?: Yes (5) UTI (urinary tract infection) Qualifiers: Urinary tract infection type: acute cystitis Hematuria presence: without hematuria Qualified Code(s): N30.00 - Acute cystitis without hematuria Is this a current diagnosis for this admission?: Yes (6) COPD (chronic obstructive pulmonary disease) Is this a current diagnosis for this admission?: Yes (7) Acute renal failure Qualifiers: Acute renal failure type: unspecified Qualified Code(s): N17.9 - Acute kidney failure, unspecified Is this a current diagnosis for this admission?: Yes Plan Summary: Assessment: Critically ill 63 yo woman with acute respiratory failure, ARDS, HCAP, septic shock, KATHLEEN, PUD, recent GI bleed, GNR bacteremia, UTI, sacral decubitus ulcer. Plan: 1. Respiratory: acute respiratory failure. Vent day 2. Now on PCV with 100% FIO2, 16 of PEEP 2. Pulmonary: ARDS, HCAP, COPD. Day 2 vanc, cefepime. Continue brochodilators and steroids. Right pulmonary effusion. Spoke with radiology today, they stated that effusion is too small to tap. Also,pt's INR is too high. 3. CV: hypotension due to septic shock. Continue IVF. Continue levophed, vasopressin, yara. Echocardiogram ordered 4. ID: septic shock, HCAP, E.coli bacteremia, UTI. Day 2 vanc, cefepime 5. Renal: KATHLEEN. Cr is 1.31 today. Pt remains oliguric. Metabolic acidosis. Bicarbonate infusion started 6. GI/Surg: PUD and recent GI bleed requiring 4 units PRBC last admission. Protonix 40 mg IV BID. s/p EGD on 06/03 7. Heme: Hg is 9.8. No signs of bleeding. Coagulopathy. INR 2.07. Will give vitamin K. 8. Endocrine: Accuchecks, SSI. Stress dose steroids 9. Wound: sacral decubitus ulcer, present on admission 10. Nutrition: NPO 11. Prophylaxis: scds. Pharmacologic DVT prophylaxis not needed b/c elevated INR 12. Ethics: terminal prognosis. Spoke with sons. I have explained that the patient's condition is terminal. They have agreed to make her DNR. Critical care time= 60 min, excluding procedures Critical Time Critical Time (minutes): 60 Level of Care: ICU -: 1. The care of a critical patient is a dynamic process. This note is a rep resentative synopsis but static in nature. The timeframe for treatments given in order is not necessarily the actual time these treatments may have been done. 2. This patient requires critical care secondary to ongoing requirements for therapy not offered or safe outside the critical care environment. Transfer to a lower level of care will result in altered life or limb morbidity and mortality. 3. Multidisciplinary rounds completed. 4. ABCDE bundle addressed.
[2019-06-07] MEDS ORDERED: FUROSEMIDE INJ/PF 40 MG/4 ML SDV IV ONE (15:00)
--- NOTE | 2019-06-07 15:43 | Progress Note ---
Provider Note Provider Note: Procedure:left femoral arterial line Indication: non-functioning right radial arterial line, septic shock Technique: area was prepped and draped in sterile fashion. Full barrier precautions were used. The left femoral artery was cannulated after several attempts. The guidewire was inserted and the needle was withdrawn. The catheter was inserted over the guidewire and the guidewire was withdrawn. The catheter was sutured into place and there was a good waveform on the monitor. Pt tolerated the procedure well.
--- NOTE | 2019-06-07 22:29 | Progress Note ---
<LANDON TELLEZ - Last Filed: 06/07/19 22:16> Provider Note Provider Note: Pt remains on levophed at 40 and yara at 145 with arterial line pressures ~110. Noted AM labs, including ABG and chemistry as well as continued low urinary output. Discussed with attending labs and renal consult. No further orders. <JIM AGUILERA - Last Filed: 06/08/19 08:33> Provider Note Provider Note: JO ANN Tellez did not contact me overnight to discuss the above issues with me.
[2019-06-08] MEDS: IPRATROPIUM/ALBUTEROL 0.5-2.5 MG/3 ML AMPUL NEB SCH ×6 (00:36→20:41)
[2019-06-08] MEDS ORDERED: AMIODARONE HCL INJ 150 MG/3 ML VIAL IV ONE (01:21)
[2019-06-08] MEDS: DEXTROSE 5%-WATER 1000 ML 1,000 ML with SODIUM BICARBONATE 150 MEQ IV PRN ×6 (01:25→17:25)
[2019-06-08 01:28] LABS: ARTERIAL BLOOD BASE EXCESS -2.6 mmol/L; ARTERIAL BLOOD H2CO3 0.98 mmol/L (1.05-1.35); ARTERIAL BLOOD HCO3 21.2 mmol/L (20-24); ARTERIAL BLOOD O2 SATURATION 99.8 % (94-98); ARTERIAL BLOOD PCO2 32.6 mmHg (35-45); ARTERIAL BLOOD PH 7.43 (7.35-7.45); ARTERIAL BLOOD PO2 424.9 mmHg (80-100); ARTERIAL BLOOD TOTAL CO2 22.2 mmol/L (21-25)
[2019-06-08 01:29] LABS: ARTERIAL BLOOD FIO2 100%
[2019-06-08 01:57] LABS: CREATINE KINASE MB 1.21 ng/mL (<4.55); TROPONIN I 0.032 ng/mL
[2019-06-08] MEDS ORDERED: AMIODARONE HCL 150 MG in DEXTROSE 5%-WATER 100 ML IV ONE (02:00)
[2019-06-08 02:20] LABS: HEMATOCRIT 27.4 % (36.0-47.0); HEMOGLOBIN 8.9 g/dL (12.0-15.5); MEAN CORPUSCULAR HEMOGLOBIN 27.6 pg (27.0-33.4); MEAN CORPUSCULAR HGB CONC 32.5 g/dL (32.0-36.0); RED BLOOD COUNT 3.24 10^6/uL (3.72-5.28)
[2019-06-08 02:23] LABS: INTERNATIONAL RATION (INR) 1.56; PROTHROMBIN TIME 18.8 SEC (11.4-15.4)
[2019-06-08 02:24] LABS: PARTIAL THROMBOPLASTIN TIME 44.5 SEC (23.5-35.8)
[2019-06-08 02:25] LABS: MEAN CORPUSCULAR VOLUME 85 fl (80-97); WHITE BLOOD COUNT 18.4 10^3/uL (4.0-10.5)
[2019-06-08] MEDS: DEXTROSE 5%-WATER 250 ML with NOREPINEPHRINE BITARTRATE 4 MG IV PRN ×4 (02:27→11:53)
[2019-06-08 02:34] LABS: ALBUMIN 2.2 g/dL (3.5-5.0); ALKALINE PHOSPHATASE 61 U/L (38-126); ANION GAP 16 (5-19); ASPARTATE AMINO TRANSFERASE 13 U/L (14-36); BILIRUBIN,DIRECT 0.8 mg/dL (0.0-0.4); BILIRUBIN,TOTAL 1.3 mg/dL (0.2-1.3); BLOOD UREA NITROGEN 20 mg/dL (7-20); CARBON DIOXIDE 20 mmol/L (22-30); CHLORIDE 86 mmol/L (98-107); GLUCOSE 133 mg/dL (75-110); POTASSIUM 3.5 mmol/L (3.6-5.0)
[2019-06-08 02:42] LABS: ABSOLUTE LYMPHOCYTES# (MANUAL) 1.1 10^3/uL (0.5-4.7); ABSOLUTE MONOCYTES # (MANUAL) 0.4 10^3/uL (0.1-1.4); BAND NEUTROPHILS % (MANUAL) 4 % (3-5); BASOPHILS % (MANUAL) 0 % (0-2); CREATINE KINASE < 20 U/L (30-135); EOSINOPHILS % (MANUAL) 0 % (0-6); LYMPHOCYTES % (MANUAL) 6 % (13-45); MONOCYTES % (MANUAL) 2 % (3-13); SEGMENTED NEUTROPHILS % (MAN) 88 % (42-78); TOTAL CELLS COUNTED 100
[2019-06-08 02:43] LABS: CALCIUM 6.9 mg/dL (8.4-10.2)
[2019-06-08 02:46] LABS: ANISOCYTOSIS 1+; BURR CELLS 1+; HYPOCHROMASIA SLIGHT; OVALOCYTES 1+; PLATELET COMMENT DECREASED; PLATELET LARGE PRESENT; POIKILOCYTOSIS 1+; POLYCHROMASIA SLIGHT; SCHISTOCYTES SLIGHT; TEAR DROP CELLS SLIGHT; TOXIC GRANULATION SLIGHT
[2019-06-08 02:47] LABS: PLATELET COUNT 95 10^3/uL (150-450)
--- NOTE | 2019-06-08 02:49 | RADIOLOGY REPORT (SQ) ---
CLINICAL HISTORY: ASSESS LUNG OAKES COMPARISON: 06/07/2019. TECHNIQUE: XR CHEST 1 VIEW 06/08/2019 12:00 AM MASH PREPARATORY OPERATOR FINDINGS: Cardiac silhouette is normal in size. There is extensive consolidation throughout the right lung. There may be a small right pleural effusion. There is no pneumothorax. There are no acute osseous findings. Endotracheal and nasogastric tubes are unchanged. IMPRESSION: Probable worsening of extensive right-sided pneumonia.
[2019-06-08] MEDS: MAGNESIUM SULFATE/D5W 1 GM/100 ML RTUPB IV SCH ×3 (03:04→05:20)
[2019-06-08] MEDS: ACETAMINOPHEN 325 MG TABLET ONE ×2 (03:58)
[2019-06-08] MEDS ORDERED: ACETAMINOPHEN SOLN 325 MG/10.15 ML UDCUP PO ONE (04:00)
[2019-06-08] MEDS: DEXTROSE 5%-WATER 250 ML with PHENYLEPHRINE HCL 40 MG IV PRN ×8 (04:33→22:08)
[2019-06-08] MEDS ORDERED: DILTIAZEM HCL INJ 25 MG/5 ML VIAL ONE (04:38)
[2019-06-08] MEDS ORDERED: DEXTROSE 5%-WATER 500 ML with AMIODARONE HCL 900 MG IV PRN ×2 (04:59)
[2019-06-08] MEDS ORDERED: DILTIAZEM HCL INJ 25 MG/5 ML VIAL IV ONE (05:30)
[2019-06-08] MEDS: HYDROCORTISONE SOD SUCCINATE INJ/PF 100 MG/2 ML SDV IV SCH ×3 (05:48→22:05)
[2019-06-08] MEDS ORDERED: VANCOMYCIN HCL 1,000 MG in DEXTROSE 5%-WATER 250 ML IV SCH (06:00)
[2019-06-08 06:42] LABS: HEMATOCRIT 26.1 % (36.0-47.0); HEMOGLOBIN 8.6 g/dL (12.0-15.5); MEAN CORPUSCULAR HEMOGLOBIN 27.5 pg (27.0-33.4); MEAN CORPUSCULAR HGB CONC 32.8 g/dL (32.0-36.0); MEAN CORPUSCULAR VOLUME 84 fl (80-97); RED BLOOD COUNT 3.11 10^6/uL (3.72-5.28); RED CELL DISTRIBUTION WIDTH 18.2 % (11.5-14.0)
[2019-06-08 07:07] LABS: ALKALINE PHOSPHATASE 59 U/L (38-126); ANION GAP 13 (5-19); ASPARTATE AMINO TRANSFERASE 12 U/L (14-36); BILIRUBIN,DIRECT 0.8 mg/dL (0.0-0.4); BILIRUBIN,TOTAL 1.3 mg/dL (0.2-1.3); BLOOD UREA NITROGEN 20 mg/dL (7-20); CARBON DIOXIDE 21 mmol/L (22-30); CHLORIDE 87 mmol/L (98-107); GLUCOSE 154 mg/dL (75-110); POTASSIUM 3.4 mmol/L (3.6-5.0); TOTAL PROTEIN 3.8 g/dL (6.3-8.2)
[2019-06-08 07:21] LABS: CALCIUM 6.6 mg/dL (8.4-10.2)
[2019-06-08 07:23] LABS: ABSOLUTE LYMPHOCYTES# (MANUAL) 0.6 10^3/uL (0.5-4.7); ABSOLUTE MONOCYTES # (MANUAL) 0.4 10^3/uL (0.1-1.4); ANISOCYTOSIS 2+; BAND NEUTROPHILS % (MANUAL) 2 % (3-5); BASOPHILS % (MANUAL) 0 % (0-2); BURR CELLS 1+; EOSINOPHILS % (MANUAL) 0 % (0-6); HYPOCHROMASIA SLIGHT; LYMPHOCYTES % (MANUAL) 3 % (13-45); MONOCYTES % (MANUAL) 2 % (3-13); PLATELET COMMENT DECREASED; POIKILOCYTOSIS 1+; POLYCHROMASIA SLIGHT; SEGMENTED NEUTROPHILS % (MAN) 93 % (42-78); TEAR DROP CELLS 1+; TOTAL CELLS COUNTED 100
[2019-06-08 07:24] LABS: PLATELET COUNT 88 10^3/uL (150-450)
[2019-06-08] MEDS ORDERED: CALCIUM GLUCONATE 1,000 MG in DEXTROSE 5%-WATER 50 ML IV ONE (09:39)
[2019-06-08] MEDS: PANTOPRAZOLE SODIUM 40 MG VIAL IV SCH ×2 (09:49→22:05)
[2019-06-08] MEDS: CEFEPIME 1 GM/D5W RTU 1 GM/50 ML RTUPB IV SCH ×2 (09:49→22:05)
[2019-06-08] MEDS ORDERED: CALCIUM GLUCONATE 1000 MG/10 ML INJ IV ONE (10:30)
[2019-06-08] MEDS: POTASSI CL 20 MEQ/50 ML RIDER 20 MEQ/50 ML RTUPB IV SCH ×2 (10:46→12:13)
[2019-06-08] MEDS: FENTANYL CITRATE/PF 600 MCG/60 ML BAG IV PRN ×2 (10:46→21:25)
--- NOTE | 2019-06-08 11:48 | RADIOLOGY REPORT (SQ) ---
EXAM DESCRIPTION: CHEST SINGLE VIEW COMPLETED DATE/TIME: 06/08/2019 11:26 am REASON FOR STUDY: S/P THORA COMPARISON: None. EXAM PARAMETERS: NUMBER OF VIEWS: One view. TECHNIQUE: An AP view of the chest was obtained. RADIATION DOSE: NA LIMITATIONS: None. FINDINGS: LUNGS AND PLEURA: Improved aeration of the right base post thoracentesis. The right upper lobe consolidation is unchanged. There is no postprocedural pneumothorax. MEDIASTINUM AND HILAR STRUCTURES: Stable mediastinal and hilar contours. HEART AND VASCULAR STRUCTURES: Stable cardiac silhouette. BONES: No acute findings. HARDWARE: The tip of the endotracheal tube projects 4.1 cm above the sunday. The tip of the enteric tube projects past the gastroesophageal junction and outside the field of view of the radiograph. OTHER: No other finding. IMPRESSION: Improved aeration of the right base post thoracentesis. There is no postprocedure pneum othorax. TECHNICAL DOCUMENTATION: JOB ID: [id number] [employer]- All Rights Reserved Reading location - IP/workstation name: [email or web address]
[2019-06-08] MEDS: FLUCONAZOLE 200 MG/NS RTU 200 MG/100 ML RTUPB IV SCH (11:53)
--- NOTE | 2019-06-08 12:37 | RADIOLOGY REPORT (SQ) ---
EXAM DESCRIPTION: U/S THORACENTESIS WITH IMAGING COMPLETED DATE/TIME: 06/08/2019 11:35 am REASON FOR STUDY: right pleural effusion COMPARISON: AP view of the chest from 06/08/2019. RADIATION DOSE: None. LIMITATIONS: None. PROCEDURE: The procedure, risks, benefits, and alternatives were discussed with the patient's family who then gave written consent. The right chest wall was then marked utilizing sonographic guidance and a time-out was performed to document correct marking verification. The area around the selected percutaneous access site was then prepped and draped with 2% chlorhexidi ne utilizing standard sterile technique. After that, the selected access site was infiltrated with 5 ml of 1% lidocaine. A 5 Fr Kjdc-I-[id number] catheter was then introduced into the pleural space and the fluid was aspirated. After the fluid was aspirated, the catheter was removed and the entry site w as covered with a sterile bandage. No immediate complications were noted. Images acquired during the procedure were stored on PACS. The patient tolerated the procedure with local anesthesia. At the end of the procedure the patient's condition was unchanged from the preprocedural baseline. Documentation of [id number] time the proceduralist spent monitoring the patient: 15 minutes. FINDINGS: ENTRY SITE: Posterior right chest. FLUID VOLUME: 680 mL. FLUID ANALYSIS: Straw-colored fluid. OTHER: Fluid was collected for analysis. IMPRESSION: Successful ultrasound-guided thoracentesis. COMMENT: Patient medication list reviewed: Yes- Quality ID# [id number]:Eligible professional attests to doc umenting in the medical record they obtained, updated, or reviewed the patient's current medications. TECHNICAL DOCUMENTATION: JOB ID: [id number] [employer]- All Rights Reserved Reading location - IP/workstation name: [email or web address]
--- NOTE | 2019-06-08 13:28 | RADIOLOGY REPORT (SQ) ---
EXAM DESCRIPTION: CHEST SINGLE VIEW COMPLETED DATE/TIME: 06/08/2019 1:17 pm REASON FOR STUDY: S/P THORA 2HOUR COMPARISON: AP view of the chest from 05/09/2019 at 1118 hours. EXAM PARAMETERS: NUMBER OF VIEWS: One view. TECHNIQUE: An AP view of the chest was obtained. RADIATION DOSE: NA LIMITATIONS: None. FINDINGS: There is postprocedural pneumothorax. The radiographic appearance of the chest is otherwi se unchanged. IMPRESSION: No postprocedural pneumothorax. TECHNICAL DOCUMENTATION: JOB ID: [id number] [employer]- All Rights Reserved Reading location - IP/workstation name: [email or web address]
[2019-06-08 13:41] LABS: ARTERIAL BLOOD BASE EXCESS -0.7 mmol/L; ARTERIAL BLOOD H2CO3 0.79 mmol/L (1.05-1.35); ARTERIAL BLOOD HCO3 21.3 mmol/L (20-24); ARTERIAL BLOOD O2 SATURATION 99.5 % (94-98); ARTERIAL BLOOD PCO2 26.2 mmHg (35-45); ARTERIAL BLOOD PH 7.53 (7.35-7.45); ARTERIAL BLOOD PO2 208.9 mmHg (80-100); ARTERIAL BLOOD TOTAL CO2 22.1 mmol/L (21-25)
[2019-06-08 13:42] LABS: ARTERIAL BLOOD FIO2 60%
[2019-06-08] MEDS ORDERED: FUROSEMIDE INJ/PF 40 MG/4 ML SDV IV ONE (13:52)
--- NOTE | 2019-06-08 14:10 | PDOC CRITICAL CARE PROG REPORT ---
General Date:: 06/08/19 - Critical Care Attending Note Resuscitation Status: Do Not Resuscitate Events in the past 12 to 24 Hours:: Pt went into afib with RVR overnight. She undewent a right thoracentesis today with about 600 cc of fluid removed. She remains on neosynephrine. Reason for ICU Addmission:: PNA, acute respiratory failure, septic shock Physical Exam Vital Signs: Temp Pulse Resp BP Pulse Ox 99.1 F 85 20 114/62 100 06/08/19 12:00 06/08/19 12:00 06/08/19 12:00 06/08/19 12:00 06/08/19 12:00 Intake & Output 06/07/19 06/08/19 06/09/19 06:59 06:59 06:59 Intake Total 5035 5441 2073 Output Total 124 412 172 Balance 4911 5029 1901 Weight 74.6 kg 80.5 kg Weight/Height Weight 80.5 kg Height 5 ft 6 in General appearance: PRESENT: no acute distress, well-developed, well-nourished, other - intubated, sedated, easily arousable Respiratory exam: PRESENT: rhonchi, unlabored Cardiovascular exam: PRESENT: RRR GI/Abdominal exam: PRESENT: soft - non-tender, non-distended Gentrourinary exam: PRESENT: indwelling catheter Extremities exam: PRESENT: other - no edema Laboratory/Radiographs Laboratory Results: 06/08/19 06:03 06/08/19 06:03 06/08/19 06/08/19 06/08/19 01:10 01:10 01:10 WBC Cancelled RBC Cancelled Hgb Cancelled Hct Cancelled MCV Cancelled MCH Cancelled MCHC Cancelled RDW Cancelled Plt Count Cancelled Seg Neutrophils % Cancelled Carbonic Acid 0.98 L HCO3/H2CO3 Ratio 21:1 ABG pH 7.43 ABG pCO2 32.6 L ABG pO2 424.9 H ABG HCO3 21.2 ABG O2 Saturation 99.8 H ABG Base Excess -2.6 FiO2 100% Sodium Cancelled Potassium Cancelled Chloride Cancelled Carbon Dioxide Cancelled Anion Gap Cancelled BUN Cancelled Creatinine Cancelled Est GFR ( Amer) Cancelled Est GFR (Non-Af Amer) Cancelled Glucose Cancelled Lactic Acid Calcium Cancelled Magnesium Cancelled Total Bilirubin Cancelled AST Cancelled Alkaline Phosphatase Cancelled Total Protein Cancelled Albumin Cancelled 06/08/19 06/08/19 06/08/19 01:10 02:00 02:00 WBC 18.4 H D RBC 3.24 L Hgb 8.9 L Hct 27.4 L MCV 85 D MCH 27.6 MCHC 32.5 RDW 18.0 H Plt Count 95 L Seg Neutrophils % Not Reportable Carbonic Acid HCO3/H2CO3 Ratio ABG pH ABG pCO2 ABG pO2 ABG HCO3 ABG O2 Saturation ABG Base Excess FiO2 Sodium 121.7 L Potassium 3.5 L Chloride 86 L Carbon Dioxide 20 L Anion Gap 16 BUN 20 Creatinine 1.76 H Est GFR ( Amer) 35 L Est GFR (Non-Af Amer) Glucose 133 H Lactic Acid 5.6 H Calcium 6.9 L* Magnesium 1.4 L Total Bilirubin 1.3 AST 13 L Alkaline Phosphatase 61 Total Protein 4.0 L Albumin 2.2 L 06/08/19 06/08/19 06/08/19 06:03 06:03 13:30 WBC 19.0 H RBC 3.11 L Hgb 8.6 L Hct 26.1 L MCV 84 MCH 27.5 MCHC 32.8 RDW 18.2 H Plt Count 88 L Seg Neutrophils % Not Reportable Carbonic Acid 0.79 L HCO3/H2CO3 Ratio 26:1 ABG pH 7.53 H ABG pCO2 26.2 L ABG pO2 208.9 H ABG HCO3 21.3 ABG O2 Saturation 99.5 H ABG Base Excess -0.7 FiO2 60% Sodium 121.4 L Potassium 3.4 L Chloride 87 L Carbon Dioxide 21 L Anion Gap 13 BUN 20 Creatinine 1.79 H Est GFR ( Amer) 34 L Est GFR (Non-Af Amer) Glucose 154 H Lactic Acid Calcium 6.6 L* Magnesium 2.0 Total Bilirubin 1.3 AST 12 L Alkaline Phosphatase 59 Total Protein 3.8 L Albumin 2.0 L 06/06/19 08:50 Tracheal Aspirate Gram Stain - Final 06/06/19 08:50 Tracheal Aspirate Sputum Culture - Final Escherichia Coli C.albicans/C.dubliniensis Normal Tri Absent 06/06/19 08:10 Catheterized Urine Urine Culture - Final NO GROWTH 2 DAYS 06/05/19 23:46 Blood Blood Culture (PCR) - Final Escherichia Coli 06/05/19 23:46 Blood Blood Culture - Final Escherichia Coli 06/05/19 22:51 Blood Blood Culture (PCR) - Final Escherichia Coli 06/05/19 22:51 Blood Blood Culture - Final Escherichia Coli 06/05/19 06/05/19 06/08/19 21:52 22:51 01:10 Creatine Kinase Cancelled CK-MB (CK-2) Troponin I Cancelled < 0.012 NT-Pro-B Natriuret Pep Cancelled 53050 H 06/08/19 06/08/19 01:10 02:00 Creatine Kinase < 20 L CK-MB (CK-2) 1.21 Troponin I 0.032 NT-Pro-B Natriuret Pep 392509 H Impressions: Chest CT 06/06/19 00:00 IMPRESSION: Right upper lobe and middle lobe pneumonia. Right pleural effusion. Mild atelectatic changes in the right lower lobe. The left lung is clear. KUB X-Ray 06/06/19 00:00 IMPRESSION: Nasogastric tube in the gastric body Femoral line in place on the right Thoracentesis Ultrasound 06/08/19 00:00 IMPRESSION: Successful ultrasound-guided thoracentesis. Chest X-Ray 06/08/19 13:15 IMPRESSION: No postprocedural pneumothorax. Assessment and Plan - Diagnosis (1) Acute respiratory failure Qualifiers: Respiratory failure complication: unspecified whether with hypoxia or hypercapnia Qualified Code(s): J96.00 - Acute respiratory failure, unspecified whether with hypoxia or hypercapnia Is this a current diagnosis for this admission?: Yes (2) HCAP (healthcare-associated pneumonia) Is this a current diagnosis for this admission?: Yes (3) Septic shock Is this a current diagnosis for this admission?: Yes (4) Bacteremia Is this a current diagnosis for this admission?: Yes (5) UTI (urinary tract infection) Qualifiers: Urinary tract infection type: acute cystitis Hematuria presence: without hematuria Qualified Code(s): N30.00 - Acute cystitis without hematuria Is this a current diagnosis for this admission?: Yes (6) COPD (chronic obstructive pulmonary disease) Is this a current diagnosis for this admission?: Yes (7) Acute renal failure Qualifiers: Acute renal failure type: unspecified Qualified Code(s): N17.9 - Acute kidney failure, unspecified Is this a current diagnosis for this admission?: Yes Plan Summary: Assessment: Critically ill 63 yo woman with acute respiratory failure, ARDS, E.coli PNA, septic shock, KATHLEEN, PUD, recent GI bleed, E.coli bacteremia, UTI, sacral decubitus ulcer. Plan: 1. Respiratory: acute respiratory failure. Vent day 3. Respiratory status improving. Switched from PCV to PRVC. Weaning FIO2 and PEEP 2. Pulmonary: ARDS, PNA due to E.coli and tristin, COPD. Day 4 vanc, cefepime. Will d/c vanc and start diflucan. Continue brochodilators and steroids. Right pulmonary effusion, s/p thoracentesis by radiology today with about 600 cc of fluid drained 3. CV: hypotension due to septic shock, resolving. Continue IVF. Pt remains on yara. Afib, pt on amiodarone infusion. Now in NSR. Echo pending. 4. ID: septic shock, PNA due to E.coli and tristin, E.coli bacteremia, UTI. Day 3 vanc, cefepime. Will d/c vanc and start diflucan. 5. Renal: KATHLEEN. Cr is 1.79 today. Pt remains oliguric. Metabolic acidosis, resolving. Continue bicarbonate infusion for now. Will give albumin and lasix. 6. GI/Surg: PUD and recent GI bleed requiring 4 units PRBC last admission. Protonix 40 mg IV BID. s/p EGD on 06/03. No signs of bleeding 7. Heme: Hg is 8.6. No signs of bleeding. Coagulopathy. INR 2.07 yesterday. s/p vitamin K yesterday. 8. Endocrine: Accuchecks, SSI. Stress dose steroids 9. Wound: sacral decubitus ulcer, present on admission 10. Nutrition: start tube feeds 11. Prophylaxis: scds. Pharmacologic DVT prophylaxis not needed b/c elevated INR. Will start sq heparin in am. 12. Ethics: DNR 13. Sons at bedside. Updated on pt condition and plan of care Critical care time= 45 min, excluding procedures Critical Time Critical Time (minutes): 45 Level of Care: ICU -: 1. The care of a critical patient is a dynamic process. This note is a cash applications representative synopsis but static in nature. The timeframe for treatments given in order is not necessarily the actual time these treatments may have been done. 2. This patient requires critical care secondary to ongoing requirements for therapy not offered or safe outside the critical care environment. Transfer to a lower level of care will result in altered life or limb morbidity and mortality. 3. Multidisciplinary rounds completed. 4. ABCDE bundle addressed.
[2019-06-08] MEDS ORDERED: FUROSEMIDE INJ/PF 100 MG/10 ML SDV IV ONE (14:15)
[2019-06-08] MEDS: ALBUMIN HUMAN 12.5 GM/50 ML RTUINJ IV SCH ×4 (14:30→17:21)
[2019-06-08 15:24] LABS: ARTERIAL BLOOD BASE EXCESS -0.6 mmol/L; ARTERIAL BLOOD FIO2 60%; ARTERIAL BLOOD H2CO3 0.93 mmol/L (1.05-1.35); ARTERIAL BLOOD HCO3 22.5 mmol/L (20-24); ARTERIAL BLOOD O2 SATURATION 99.3 % (94-98); ARTERIAL BLOOD PCO2 30.9 mmHg (35-45); ARTERIAL BLOOD PH 7.48 (7.35-7.45); ARTERIAL BLOOD PO2 172.1 mmHg (80-100); ARTERIAL BLOOD TOTAL CO2 23.4 mmol/L (21-25)
--- NOTE | 2019-06-08 19:28 | EKG REPORT ---
SEVERITY:- ABNORMAL ECG - ATRIAL FIBRILLATION WITH RAPID V-RATE LOW VOLTAGE IN FRONTAL LEADS BORDERLINE T ABNORMALITIES, ANT-LAT LEADS : Confirmed by: Dorina Jurado MD 08-Jun-2019 19:27:52
[2019-06-09] MEDS: IPRATROPIUM/ALBUTEROL 0.5-2.5 MG/3 ML AMPUL NEB SCH ×7 (00:56→23:32)
[2019-06-09] MEDS: DEXTROSE 5%-WATER 1000 ML 1,000 ML with SODIUM BICARBONATE 150 MEQ IV PRN ×2 (01:23)
[2019-06-09 05:04] LABS: ARTERIAL BLOOD BASE EXCESS 4.4 mmol/L; ARTERIAL BLOOD H2CO3 1.06 mmol/L (1.05-1.35); ARTERIAL BLOOD HCO3 27.6 mmol/L (20-24); ARTERIAL BLOOD O2 SATURATION 98.7 % (94-98); ARTERIAL BLOOD PCO2 35.3 mmHg (35-45); ARTERIAL BLOOD PH 7.51 (7.35-7.45); ARTERIAL BLOOD PO2 122.6 mmHg (80-100); ARTERIAL BLOOD TOTAL CO2 28.7 mmol/L (21-25)
[2019-06-09 05:05] LABS: ARTERIAL BLOOD FIO2 50%
[2019-06-09] MEDS: FENTANYL CITRATE/PF 600 MCG/60 ML BAG IV PRN (05:06)
[2019-06-09 05:08] LABS: HEMATOCRIT 25.1 % (36.0-47.0); HEMOGLOBIN 8.3 g/dL (12.0-15.5); MEAN CORPUSCULAR HEMOGLOBIN 27.2 pg (27.0-33.4); MEAN CORPUSCULAR VOLUME 83 fl (80-97); RED BLOOD COUNT 3.04 10^6/uL (3.72-5.28); RED CELL DISTRIBUTION WIDTH 18.4 % (11.5-14.0); WHITE BLOOD COUNT 29.6 10^3/uL (4.0-10.5)
[2019-06-09] MEDS: HYDROCORTISONE SOD SUCCINATE INJ/PF 100 MG/2 ML SDV IV SCH ×3 (05:10→23:39)
[2019-06-09 05:16] LABS: PLATELET COUNT 41 10^3/uL (150-450)
[2019-06-09 05:32] LABS: ALBUMIN 2.3 g/dL (3.5-5.0); ALKALINE PHOSPHATASE 74 U/L (38-126); ASPARTATE AMINO TRANSFERASE 12 U/L (14-36); BILIRUBIN,DIRECT 0.7 mg/dL (0.0-0.4); BILIRUBIN,TOTAL 1.2 mg/dL (0.2-1.3); BLOOD UREA NITROGEN 25 mg/dL (7-20); CALCIUM 7.1 mg/dL (8.4-10.2); CARBON DIOXIDE 29 mmol/L (22-30); CHLORIDE 74 mmol/L (98-107); GLUCOSE 120 mg/dL (75-110); POTASSIUM 3.3 mmol/L (3.6-5.0); TOTAL PROTEIN 4.1 g/dL (6.3-8.2)
[2019-06-09 05:33] LABS: ANION GAP 15 (5-19)
[2019-06-09 05:39] LABS: ABSOLUTE LYMPHOCYTES# (MANUAL) 1.8 10^3/uL (0.5-4.7); ABSOLUTE MONOCYTES # (MANUAL) 0.6 10^3/uL (0.1-1.4); BAND NEUTROPHILS % (MANUAL) 4 % (3-5); BASOPHILS % (MANUAL) 0 % (0-2); EOSINOPHILS % (MANUAL) 0 % (0-6); LYMPHOCYTES % (MANUAL) 6 % (13-45); MONOCYTES % (MANUAL) 2 % (3-13); POLYCHROMASIA 2+; SEGMENTED NEUTROPHILS % (MAN) 88 % (42-78); TOTAL CELLS COUNTED 100
[2019-06-09 05:40] LABS: ANISOCYTOSIS 2+; HYPOCHROMASIA 1+; PLATELET COMMENT DECREASED
[2019-06-09] MEDS: DEXTROSE 5%-WATER 250 ML with PHENYLEPHRINE HCL 40 MG IV PRN ×2 (07:01)
--- NOTE | 2019-06-09 07:48 | RADIOLOGY REPORT (SQ) ---
EXAM DESCRIPTION: CHEST SINGLE VIEW COMPLETED DATE/TIME: 06/09/2019 6:15 am REASON FOR STUDY: respiratory failure COMPARISON: 06/08/2019 FINDINGS: AP portable upright single view. Slight worsening of consolidation and volume loss in the right upper lobe and right middle lobe. Left lung remains clear. Endotracheal and nasogastric tubes are appropriate. TECHNICAL DOCUMENTATION: JOB ID: [id number] Reading location - IP/workstation name: [email or web address]
[2019-06-09] MEDS: POTASSI CL 20 MEQ/50 ML RIDER 20 MEQ/50 ML RTUPB IV SCH ×2 (08:42→10:34)
[2019-06-09] MEDS: FLUCONAZOLE 200 MG/NS RTU 200 MG/100 ML RTUPB IV SCH (09:13)
[2019-06-09] MEDS: CEFEPIME 1 GM/D5W RTU 1 GM/50 ML RTUPB IV SCH ×2 (09:14→23:40)
--- NOTE | 2019-06-09 09:19 | PDOC CRITICAL CARE PROG REPORT ---
General Date:: 06/09/19 - Critical Care Progress Note Resuscitation Status: Do Not Resuscitate Events in the past 12 to 24 Hours:: Pt remains only on yara. Remains intubated. Reason for ICU Addmission:: PNA, acute respiratory failure, septic shock - Medications: Medications reviewed and adjusted accordingly: Yes Physical Exam Vital Signs: Temp Pulse Resp BP Pulse Ox 97.2 F 75 15 112/61 100 06/09/19 08:00 06/09/19 08:00 06/09/19 08:00 06/09/19 08:00 06/09/19 08:00 Intake & Output 06/08/19 06/09/19 06/10/19 06:59 06:59 06:59 Intake Total 5541 5388 33 Output Total 412 772 115 Balance 5129 4616 -82 Weight 80.5 kg 85.2 kg Weight/Height Weight 85.2 kg Height 5 ft 6 in General appearance: PRESENT: no acute distress, well-developed, well-nourished, other - intubated, comfortable on vent. Head exam: PRESENT: atraumatic, normocephalic Respiratory exam: PRESENT: clear to auscultation astrid, unlabored Cardiovascular exam: PRESENT: RRR GI/Abdominal exam: PRESENT: soft, other - non-tender, non-distend. No rebound, no gaurding. Gentrourinary exam: PRESENT: indwelling catheter Extremities exam: PRESENT: +1 edema Neurological exam: PRESENT: awake Laboratory/Radiographs Laboratory Results: 06/09/19 04:40 06/09/19 04:40 06/08/19 06/08/19 06/09/19 13:30 15:10 04:40 WBC RBC Hgb Hct MCV MCH MCHC RDW Plt Count Seg Neutrophils % Carbonic Acid 0.79 L 0.93 L 1.06 HCO3/H2CO3 Ratio 26:1 24:1 26:1 ABG pH 7.53 H 7.48 H 7.51 H ABG pCO2 26.2 L 30.9 L 35.3 ABG pO2 208.9 H 172.1 H 122.6 H ABG HCO3 21.3 22.5 27.6 H ABG O2 Saturation 99.5 H 99.3 H 98.7 H ABG Base Excess -0.7 -0.6 4.4 FiO2 60% 60% 50% Sodium Potassium Chloride Carbon Dioxide Anion Gap BUN Creatinine Est GFR ( Amer) Glucose Calcium Magnesium Total Bilirubin AST Alkaline Phosphatase Total Protein Albumin 06/09/19 06/09/19 04:40 04:40 WBC 29.6 H RBC 3.04 L Hgb 8.3 L Hct 25.1 L MCV 83 MCH 27.2 MCHC 33.0 RDW 18.4 H Plt Count 41 L Seg Neutrophils % Not Reportable Carbonic Acid HCO3/H2CO3 Ratio ABG pH ABG pCO2 ABG pO2 ABG HCO3 ABG O2 Saturation ABG Base Excess FiO2 Sodium 118.4 L* Potassium 3.3 L Chloride 74 L Carbon Dioxide 29 Anion Gap 15 BUN 25 H Creatinine 2.16 H Est GFR ( Amer) 28 L Glucose 120 H Calcium 7.1 L Magnesium 1.7 Total Bilirubin 1.2 AST 12 L Alkaline Phosphatase 74 Total Protein 4.1 L Albumin 2.3 L 06/06/19 08:50 Tracheal Aspirate Gram Stain - Final 06/06/19 08:50 Tracheal Aspirate Sputum Culture - Final Escherichia Coli C.albicans/C.dubliniensis Normal Tri Absent 06/06/19 08:10 Catheterized Urine Urine Culture - Final NO GROWTH 2 DAYS 06/05/19 23:46 Blood Blood Culture (PCR) - Final Escherichia Coli 06/05/19 23:46 Blood Blood Culture - Final Escherichia Coli 06/05/19 22:51 Blood Blood Culture (PCR) - Final Escherichia Coli 06/05/19 22:51 Blood Blood Culture - Final Escherichia Coli 06/05/19 06/05/19 06/08/19 21:52 22:51 01:10 Creatine Kinase Cancelled CK-MB (CK-2) Troponin I Cancelled < 0.012 NT-Pro-B Natriuret Pep Cancelled 16520 H 06/08/19 06/08/19 01:10 02:00 Creatine Kinase < 20 L CK-MB (CK-2) 1.21 Troponin I 0.032 NT-Pro-B Natriuret Pep 359214 H Impressions: Chest CT 06/06/19 00:00 IMPRESSION: Right upper lobe and middle lobe pneumonia. Right pleural effusion. Mild atelectatic changes in the right lower lobe. The left lung is clear. KUB X-Ray 06/06/19 00:00 IMPRESSION: Nasogastric tube in the gastric body Femoral line in place on the right Thoracentesis Ultrasound 06/08/19 00:00 IMPRESSION: Successful ultrasound-guided thoracentesis. Assessment and Plan - Diagnosis (1) Acute respiratory failure Qualifiers: Respiratory failure complication: unspecified whether with hypoxia or hypercapnia Qualified Code(s): J96.00 - Acute respiratory failure, unspecified whether with hypoxia or hypercapnia Is this a current diagnosis for this admission?: Yes (2) HCAP (healthcare-associated pneumonia) Is this a current diagnosis for this admission?: Yes (3) Septic shock Is this a current diagnosis for this admission?: Yes (4) Bacteremia Is this a current diagnosis for this admission?: Yes (5) UTI (urinary tract infection) Qualifiers: Urinary tract infection type: acute cystitis Hematuria presence: without hematuria Qualified Code(s): N30.00 - Acute cystitis without hematuria Is this a current diagnosis for this admission?: Yes (6) COPD (chronic obstructive pulmonary disease) Is this a current diagnosis for this admission?: Yes (7) Acute renal failure Qualifiers: Acute renal failure type: unspecified Qualified Code(s): N17.9 - Acute kidney failure, unspecified Is this a current diagnosis for this admission?: Yes Plan Summary: Assessment: Critically ill 63 yo woman with acute respiratory failure, ARDS, E.c caron PNA, septic shock, KATHLEEN, PUD, recent GI bleed, E.coli bacteremia, UTI, sacral decubitus ulcer,thrombocytopenia. Plan: 1. Respiratory: acute respiratory failure. Vent day 4. SBT later today 2. Pulmonary: ARDS, PNA due to E.coli and tristin, COPD. Continue Cefepime and diflucan. Continue brochodilators and steroids. Right pulmonary effusion, s/p thoracentesis by radiology 06/08. with about 600 cc of fluid drained 3. CV: hypotension due to septic shock, resolving. Pt only on yara,will wean as t olerated. Afib, resolved. Pt is NSR. 4. ID: septic shock, PNA due to E.coli and tristin, E.coli bacteremia, UTI. ATBX Day 4. Day 4 cefepime, day 2 Diflucan. WBC increasing. Will remove femoral lines. 5. Renal: KATHLEEN. Cr is 2.29. Pt remains oliguric, but UOP increased with albumin and lasix. Metabolic acidosis, resolved. D/C bicarbonate infusion. Hyponatremia, continue to monitor. 6. GI/Surg: PUD and recent GI bleed requiring 4 units PRBC last admission. Protonix 40 mg IV BID. s/p EGD on 06/03. No signs of bleeding 7. Heme: Hg is 8.3. No signs of bleeding. Coagulopathy, resolved. s/p vitamin K. Now with thrombocytopenia due to sepsis. Pt has been on no heparin products 8. Endocrine: Accuchecks, SSI. Stress dose steroids 9. Wound: sacral decubitus ulcer, present on admission 10. Nutrition: tube feeds 11. Prophylaxis: scds. No pharmacologic DVT prophylaxis due to thrombocytopenia 12. Ethics: DNR Critical care time= 40 min, excluding procedures Critical Time Critical Time (minutes): 40 Level of Care: ICU -: 1. The care of a critical patient is a dynamic process. This note is a liability claims representative synopsis but static in nature. The timeframe for treatments given in order is not necessarily the actual time these treatments may have been done. 2. This patient requires critical care secondary to ongoing requirements for therapy not offered or safe outside the critical care environment. Transfer to a lower level of care will result in altered life or limb morbidity and mortality. 3. Multidisciplinary rounds completed. 4. ABCDE bundle addressed.
[2019-06-09] MEDS: MIDAZOLAM 2 MG/2 ML INJ IV PRN (11:00)
--- NOTE | 2019-06-09 12:13 | Operative Report ---
Bedside Procedure - History of Present Illness Indication for Procedure: hypotension, need for central access Provider: JIM AGUILERA - Central Line Left Internal jugular Time completed: 11:30 Central line pre-insertion: Sterile PPE donned, Chloraprep applied Central line lumen type: Triple Anesthetic type: 1% Lidocaine mL's of anesthesia: 5 Ultrasound guided: Yes Line secured with sutures: Yes Central line post-insertion: Blood return from lumens, Biopatch applied, Sutured, Sterile dressing applied, Position confirmed w/ CXR Number of attempts: 1
--- NOTE | 2019-06-09 12:45 | RADIOLOGY REPORT (SQ) ---
EXAM DESCRIPTION: CHEST SINGLE VIEW COMPLETED DATE/TIME: 06/09/2019 12:21 pm REASON FOR STUDY: central line placement COMPARISON: Study from earlier today. FINDINGS: Single-view chest AP portable upright for central line placement. Left subclavian central line with tip in the superior vena cava. No pneumothorax. Appropriate stable endotracheal and nasogastric tubes. Stable appearance of right pneumonia. TECHNICAL DOCUMENTATION: JOB ID: [id number] Reading location - IP/workstation name: [email or web address]
[2019-06-09] MEDS ORDERED: AMIODARONE HCL INJ 150 MG/3 ML VIAL IV ONE ×2 (19:46→19:51)
[2019-06-09] MEDS: DEXTROSE 5%-WATER 500 ML with AMIODARONE HCL 900 MG IV PRN ×2 (20:52)
[2019-06-09] MEDS ORDERED: AMIODARONE HCL 150 MG in DEXTROSE 5%-WATER 100 ML IV ONE (21:00)
[2019-06-09 22:28] LABS: INTERNATIONAL RATION (INR) 1.11; PROTHROMBIN TIME 14.4 SEC (11.4-15.4)
[2019-06-09 22:29] LABS: PARTIAL THROMBOPLASTIN TIME 38.5 SEC (23.5-35.8)
[2019-06-10] MEDS: FENTANYL CITRATE/PF 600 MCG/60 ML BAG IV PRN ×3 (03:37→05:43)
[2019-06-10] MEDS: IPRATROPIUM/ALBUTEROL 0.5-2.5 MG/3 ML AMPUL NEB SCH ×6 (04:06→23:23)
[2019-06-10 05:30] LABS: HEMATOCRIT 26.7 % (36.0-47.0); HEMOGLOBIN 8.8 g/dL (12.0-15.5); MEAN CORPUSCULAR HEMOGLOBIN 27.2 pg (27.0-33.4); MEAN CORPUSCULAR HGB CONC 32.8 g/dL (32.0-36.0); MEAN CORPUSCULAR VOLUME 83 fl (80-97); RED BLOOD COUNT 3.23 10^6/uL (3.72-5.28); RED CELL DISTRIBUTION WIDTH 18.2 % (11.5-14.0)
[2019-06-10 05:47] LABS: PLATELET COUNT 19 10^3/uL (150-450); WHITE BLOOD COUNT 42.7 10^3/uL (4.0-10.5)
--- NOTE | 2019-06-10 05:51 | Progress Note ---
Provider Note Provider Note: Spoke with Dr. Martino on the phone from hematology regarding declining platelets. Discussed pts initial admission plt count of 848 and INR 1.21 while not being on any home anticoagulation per med-rec. Her first exposure to sub-cutaneous heparin was during admission on 06/02 at 0522, heparin was then held by primary team after one dose due to GI bleeding and she received no further doses during this admission. Daily CBCs were drawn showing downward trend in plt without PT/INR or PTT to compare. She was discharged to SNF and readmitted to the ED within 24hrs. On readmission to the ED, her plt were 310. She was intubated and a central line was placed in the ED for treatment of sepsis. She received one sub-cutaneous dose of heparin on 06/06 at 1043 that was subsequently stopped, however the order set for the care of the central line was placed and she received 30u IV push heparin Q8hr starting on 06/07. The IV push order was for Q8h, however she did not receive the ordered dose every 8hrs during this current admission for documented reasons on the AUG. Platelets continued to decline and INR was as high as 2.07 and fibrinogen was resulted on 06/08 as 452. She was given Vit K once on 06/07. Platelets resulted as 41 on 06/09, which is a decrease by more than 50% of previous days. On physical assessment, she has small scattered petechial lesions to BUE and chest, a moderate ecchymotic area to right forearm and blood leaking from left IJ insertion site. There are no lesions noted to eyes, oral mucosa, lower extremities or posterior skin. 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 Per recommendations from Dr. Martino, a Pf4 was sent and all heparin flushes were stopped and to place a con sult for him to see the patient. The HIT panel (Pf4) is a [facility] send out test so the consult for Dr. Martino has not been ordered at this time. DDx: Sepsis induced thrombocytopenia is the most likely cause of declining platelets secondary to suppression or consumption during acute illness. DIC is another consideration for her progressive drop in platelets there is no current obvious signs of bleeding, measured PT/PTT are not acutely elevated, fibrinogen drawn on 06/08 was 452. There is a 30yr remote history of cervical CA but no recent notes or mention of any current issues related to this; in her past visits she had an average plt count between 300-400. Liver function tests are not grossly abnormal. She has a known mid and distal splenic artery aneurysm that was reported as stable on most recent abd/pel CT on last admission (06/01) but there is no noted organomegaly or current pain with palpation on assessment. Also, it was reported that pt was severely depressed and unable to care for herself in the days leading up to her initial admission, so poor nutritional status is a possible cause of thrombocytopenia, however unlikely as she arrived to the hospital with stable. 4Ts score: Thrombocytopenia - Platelet count fall >50 percent and ashley is >20,000 without surgery in previous 3 days - 2 points Timing of onset - initial exposure on previous admission was 06/02, even though she was discharged, she was re-admitted the following day so we have 7 days of CBCs - 2 points Thrombosis/other sequelae - non-necrotizing skin lesions/petechial lesions noted on BUE and possibly chest by nursing staff on exam - 1 point Other causes - 1 point Total: 6 - high probability
[2019-06-10] MEDS ORDERED: NORMAL SALINE 250 ML IV PRN ×4 (05:52→12:37)
[2019-06-10 05:54] LABS: ABSOLUTE LYMPHOCYTES# (MANUAL) 0.9 10^3/uL (0.5-4.7); ABSOLUTE MONOCYTES # (MANUAL) 0.4 10^3/uL (0.1-1.4); BASOPHILS % (MANUAL) 0 % (0-2); EOSINOPHILS % (MANUAL) 0 % (0-6); LYMPHOCYTES % (MANUAL) 2 % (13-45); MONOCYTES % (MANUAL) 1 % (3-13); NUCLEATED RED BLOOD CELLS 1 /100 WBC (0); SEGMENTED NEUTROPHILS % (MAN) 97 % (42-78); TOTAL CELLS COUNTED 100; TOXIC GRANULATION 1+
[2019-06-10 05:56] LABS: ALBUMIN 2.4 g/dL (3.5-5.0); ALKALINE PHOSPHATASE 96 U/L (38-126); ANION GAP 12 (5-19); ASPARTATE AMINO TRANSFERASE 16 U/L (14-36); BILIRUBIN,DIRECT 0.6 mg/dL (0.0-0.4); BILIRUBIN,TOTAL 1.1 mg/dL (0.2-1.3); BLOOD UREA NITROGEN 32 mg/dL (7-20); CALCIUM 7.8 mg/dL (8.4-10.2); CARBON DIOXIDE 33 mmol/L (22-30); CHLORIDE 74 mmol/L (98-107); GLUCOSE 70 mg/dL (75-110); POTASSIUM 3.5 mmol/L (3.6-5.0); TOTAL PROTEIN 4.5 g/dL (6.3-8.2)
[2019-06-10 05:57] LABS: ANISOCYTOSIS 2+; BURR CELLS SLIGHT; OVALOCYTES 1+; POIKILOCYTOSIS 2+; POLYCHROMASIA SLIGHT; TEAR DROP CELLS 1+
[2019-06-10 05:58] LABS: PLATELET COMMENT DECREASED
[2019-06-10] MEDS: HYDROCORTISONE SOD SUCCINATE INJ/PF 100 MG/2 ML SDV IV SCH (06:33)
--- NOTE | 2019-06-10 07:38 | RADIOLOGY REPORT (SQ) ---
EXAM DESCRIPTION: CHEST SINGLE VIEW COMPLETED DATE/TIME: 06/10/2019 6:45 am REASON FOR STUDY: tachypnea, work of breathing COMPARISON: 06/09/2019 FINDINGS: Single-view chest AP portable upright. Endotracheal tube has been removed. Nasogastric tube and left IJ line remain in place. Persistent consolidation and volume loss right upper lobe, as before. Slight worsening aeration in the right lung base, pleural effusion. Left lung remains relatively clear. TECHNICAL DOCUMENTATION: JOB ID: [id number] Reading location - IP/workstation name: [email or web address]
[2019-06-10] MEDS ORDERED: VANCOMYCIN HCL 0 MG in DEXTROSE 5%-WATER 250 ML IV NR (07:45)
[2019-06-10] MEDS: DEXTROSE 5%-NORMAL SALINE 1,000 ML IV PRN ×2 (08:24→19:28)
[2019-06-10] MEDS: ALBUMIN HUMAN 12.5 GM/50 ML RTUINJ IV SCH ×4 (08:27→10:30)
--- NOTE | 2019-06-10 08:40 | PDOC CRITICAL CARE PROG REPORT ---
General Date:: 06/10/19 - Critical Care Attending Note Resuscitation Status: Do Not Resuscitate Events in the past 12 to 24 Hours:: Pt was extubated yesterday. Remains on neosynephrine. Was restarted on amiodarone for afib with RVR. Reason for ICU Addmission:: PNA, acute respiratory failure, septic shock - Medications: Medications reviewed and adjusted accordingly: Yes Physical Exam Vital Signs: Temp Pulse Resp BP Pulse Ox 97.5 F 96 17 96/73 L 96 06/10/19 05:42 06/10/19 04:06 06/10/19 06:41 06/10/19 06:41 06/10/19 06:30 Intake & Output 06/09/19 06/10/19 06/11/19 06:59 06:59 06:59 Intake Total 5388 307 Output Total 772 1175 Balance 4616 -868 Weight 85.2 kg 84.6 kg Weight/Height Weight 84.6 kg Height 5 ft 6 in General appearance: PRESENT: no acute distress, well-developed, well-nourished - awake, not very interactive., other - awake, moaning in pain Head exam: PRESENT: atraumatic, normocephalic Respiratory exam: PRESENT: rhonchi, tachypnea Cardiovascular exam: PRESENT: irregular rhythm GI/Abdominal exam: PRESENT: soft, other - soft, non-tender, non-distended, no rebound, no guarding Gentrourinary exam: PRESENT: indwelling catheter Extremities exam: PRESENT: +1 edema Skin exam: PRESENT: other - no rashes, no petechia, stage II sacral ulcer Laboratory/Radiographs Laboratory Results: 06/10/19 03:30 06/10/19 03:30 06/08/19 06/08/19 06/10/19 11:15 11:15 03:30 WBC 42.7 H* RBC 3.23 L Hgb 8.8 L Hct 26.7 L MCV 83 MCH 27.2 MCHC 32.8 RDW 18.2 H Plt Count 19 L* Seg Neutrophils % Not Reportable Sodium Potassium Chloride Carbon Dioxide Anion Gap BUN Creatinine Est GFR ( Amer) Glucose Calcium Magnesium Total Bilirubin AST Alkaline Phosphatase Total Protein Albumin Fluid Total Protein 1.5 Fluid LDH 837 Blood Type 06/10/19 06/10/19 03:30 06:53 WBC RBC Hgb Hct MCV MCH MCHC RDW Plt Count Seg Neutrophils % Sodium 119.0 L* Potassium 3.5 L Chloride 74 L Carbon Dioxide 33 H Anion Gap 12 BUN 32 H Creatinine 2.42 H Est GFR ( Amer) 24 L Glucose 70 L Calcium 7.8 L Magnesium 1.8 Total Bilirubin 1.1 AST 16 Alkaline Phosphatase 96 Total Protein 4.5 L Albumin 2.4 L Fluid Total Protein Fluid LDH Blood Type A POSITIVE 06/05/19 06/05/19 06/08/19 21:52 22:51 01:10 Creatine Kinase Cancelled CK-MB (CK-2) Troponin I Cancelled < 0.012 NT-Pro-B Natriuret Pep Cancelled 80640 H 06/08/19 06/08/19 01:10 02:00 Creatine Kinase < 20 L CK-MB (CK-2) 1.21 Troponin I 0.032 NT-Pro-B Natriuret Pep 289916 H Impressions: Chest CT 06/06/19 00:00 IMPRESSION: Right upper lobe and middle lobe pneumonia. Right pleural effusion. Mild atelectatic changes in the right lower lobe. The left lung is clear. KUB X-Ray 06/06/19 00:00 IMPRESSION: Nasogastric tube in the gastric body Femoral line in place on the right Thoracentesis Ultrasound 06/08/19 00:00 IMPRESSION: Successful ultrasound-guided thoracentesis. Assessment and Plan - Diagnosis (1) Acute respiratory failure Qualifiers: Respiratory failure complication: unspecified whether with hypoxia or hypercapnia Qualified Code(s): J96.00 - Acute respiratory failure, unspecified whether with hypoxia or hypercapnia Is this a current diagnosis for this admission?: Yes (2) HCAP (healthcare-associated pneumonia) Is this a current diagnosis for this admission?: Yes (3) Septic shock Is this a current diagnosis for this admission?: Yes (4) Bacteremia Is this a current diagnosis for this admission?: Yes (5) UTI (urinary tract infection) Qualifiers: Urinary tract infection type: acute cystitis Hematuria presence: without hematuria Qualified Code(s): N30.00 - Acute cystitis without hematuria Is this a current diagnosis for this admission?: Yes (6) COPD (chronic obstructive pulmonary disease) Is this a current diagnosis for this admission?: Yes (7) Acute renal failure Qualifiers: Acute renal failure type: unspecified Qualified Code(s): N17.9 - Acute kidney failure, unspecified Is this a current diagnosis for this admission?: Yes Plan Summary: Assessment: Critically ill 63 yo woman with acute respiratory failure, ARDS, E.coli PNA, septic shock, KATHLEEN, PUD, recent GI bleed, E.coli bacteremia, UTI, thrombocytopenia, possible lung cancer. Plan: 1. Respiratory: acute respiratory failure, resolved. Pt extubated 06/09. Is on nasal cannula. Continue to monitor respirtory status closely. 2. Pulmonary: ARDS, PNA due to E.coli and tristin, COPD. Right plueral effusion, ?post-obstructive PNA. s/p thoracentesis on 06/08. Pleural fluid LDH was 837. I am concerned this may represent a malignancy. Will repeat CT of chest. Will consult Dr. Guthrie, pt needs bronch. ATBX Day 5. Will change ATBX and will restart her vanc and will start meropenem. Will continue dilflucan. 3. CV: hypotension due to septic shock, resolving. Pt is off levophed and vasopressin and remains only on neosynephrine. Will wean as tolerated. Afib, amiodarone restarted. 4. ID: septic shock, PNA due to E.coli and tristin, E.coli bacteremia, UTI. ATBX Day 5. Day 5 cefepime, day 3 Diflucan. WBC has increased to 42.7. I removed all her femoral lines yesterday and inserted a new TLC. I will restart her vanc, wi ll d/c cefepime, start meropenem. Will obtain CT of chest, abdomen, and pelvis. Repeat cultures ordered. Pt has been on stress dose steroids which could be contributing to her leukocytosis, will d/c. 5. Renal: KATHLEEN. Cr is 2.42. Pt is making urine. Pt is not acidotic. No need for dialysis at this time. Hyponatremia, resolving. Na has increased to 119. ?SIADH from malignancy. 6. GI/Surg: PUD and recent GI bleed requiring 4 units PRBC last admission. Protonix 40 mg IV BID. s/p EGD on 06/03. No signs of bleeding 7. Heme/onc: Hg is 8.8. No signs of bleeding. Coagulopathy, resolved. s/p vitamin K. Now with thrombocytopenia due to sepsis. Platelet count has dropped to 19. Will repeat CBC later today. Pt has not been on sq heparin or lovenox, but was getting heparin flushes which have been stopped. Pt has no signs of bleeding. No need for platelet transfusion. Am concerned that pt has possible pulmonary malignancy. D/W Dr. Monk. 8. Endocrine: Accuchecks, SSI. Will d/c stress dose steroids. 9. Wound: sacral decubitus ulcer stage II, present on admission 10. Nutrition: tube feeds on hold since extubation. NPO. Will start D5NS IVF 11. Prophylaxis: scds. No pharmacologic DVT prophylaxis due to thrombocytopenia 12. Ethics: DNR Critical care time= 60 min, excluding procedures Critical Time Critical Time (minutes): 60 Level of Care: ICU -: 1. The care of a critical patient is a dynamic process. This note is a c s s representative synopsis but static in nature. The timeframe for treatments given in order is not necessarily the actual time these treatments may have been done. 2. This patient requires critical care secondary to ongoing requirements for therapy not offered or safe outside the critical care environment. Transfer to a lower level of care will result in altered life or limb morbidity and mortality. 3. Multidisciplinary rounds completed. 4. ABCDE bundle addressed.
[2019-06-10] MEDS: FLUCONAZOLE 200 MG/NS RTU 200 MG/100 ML RTUPB IV SCH (09:23)
[2019-06-10] MEDS ORDERED: MORPHINE SULFATE 10 MG/ML INJ ONE ×2 (09:36→17:49)
[2019-06-10] MEDS: MEROPENEM 500 MG in NORMAL SALINE 50 ML IV SCH ×2 (10:10→21:07)
--- NOTE | 2019-06-10 10:46 | Progress Note ---
Provider Note Provider Note: Critical Care Attending Note. Spoke with sons and expressed my concerns that their mother may have cancer. They state that they were told by another family member that their mother has had skin cancer and may have been told that she has a "mass on her pancreas". They are also concerned about her mental status as they state that she was cognitively intact b/f she went into the rehab facility. SHe is currently encephalopathic. Will check head CT.
--- NOTE | 2019-06-10 12:23 | RADIOLOGY REPORT (SQ) ---
EXAM DESCRIPTION: CT CHEST WITHOUT; CT ABD/PELVIS NO ORAL OR IV COMPLETED DATE/TIME: 06/10/2019 11:26 am REASON FOR STUDY: HCAP, possible malignancy; septic shock, eval for abscess, colitis COMPARISON: Prior abdominal CT 2015. CT chest 06/06/2019. TECHNIQUE: CT scan of the chest performed without intravenous contrast using helical scanning techni que. Images reviewed with lung, soft tissue and bone windows. Reconstructed coronal and sagittal MPR images reviewed. All images stored on PACS. All CT scanners at this facility use dose modulation, iterative reconstruction, and/or weight based d osing when appropriate to reduce radiation dose to as low as reasonably achievable (ALARA). [facility]: Dose Right [facility]: CareDose [facility]: Dose Right [facility]: Teradose 4D [facility]: [employer] RADIATION DOSE: CT Rad equipment meets quality standard of care and radiation dose reduction techniq ues were employed. CTDIvol: 14.4 mGy. DLP: 1048 mGy-cm. mGy. LIMITATIONS: None. FINDINGS: AXILLAE: No adenopathy. CHEST WALL: Mild generalized subcutaneous edema particularly along the inferior right breast extendin g along the flanks bilaterally. No mass. LUNGS: Moderate right pleural effusion. Small left pleural effusion. Consolidation in the right mid dle lobe with mild compressive atelectasis in the right lower lobe. Mixed reticular and ground-glass interstitial infiltrates in the upper lobes. Left lower lobe relatively clear. PLEURA: As above. THYROID: No masses or significant asymmetry. HILAR AND MEDIASTINAL STRUCTURES: No bulky mediastinal adenopathy or mass, limited noncontrast techni que. Fullness in the right hilum could reflect adenopathy. This is probably stable. AORTA AND GREAT VESSELS: No aneurysm. HEART: No pericardial effusion or significant coronary calcification. HARDWARE AND LIFELINES: Left central line. Nasogastric tube. BONES: Osteopenic without fracture or bone lesion. OTHER: No other significant finding. IMPRESSION: 1. Extensive lung findings as above. When compared to 06/06/2019, right pleural effusion is slightly progressive and there is a new small left pleural effusion. Consolidation in the right lung has imp roved. Progressive interstitial infiltrate in the right upper lobe with new patchy interstitial infi ltrate in the left upper lobe. 2. Other findings as above, stable. COMPARISON: As above. TECHNIQUE: CT scan of the abdomen and pelvis performed without intravenous contrast and withoutoral contrast using helical scanning technique with dynamic intravenous contrast injection. Images review ed with lung, soft tissue and bone windows. Reconstructed coronal and sagittal MPR images reviewed. All images stored on PACS. All CT scanners at this facility use dose modulation, iterative reconstruction, and/or weight based d osing when appropriate to reduce radiation dose to as low as reasonably achievable (ALARA). [facility]: Dose Right [facility]: [employer] [facility]: Dose Right [facility]: Teradose 4D [facility]: Smart [employer] RADIATION DOSE: CT Rad equipment meets quality standard of care and radiation dose reduction techniq ues were employed. CTDIvol: 14.4 mGy. DLP: 1048 mGy-cm.mGy. LIMITATIONS: Arm positioning causes significant streak artifact through the abdomen. Mild motion. FINDINGS: LIVER: Perihepatic fluid. No gross mass. SPLEEN: Perisplenic fluid. No gross mass. PANCREAS: Limited evaluation. No gross inflammatory changes. Extensive calcification along the sple yovanny artery. GALLBLADDER: Absent. ADRENAL GLANDS: No gross mass. RIGHT KIDNEY AND URETER: No obstructive changes. LEFT KIDNEY AND URETER: No obstructive changes. Minimal nonobstructive nephrolithiasis. AORTA AND VESSELS: No aneurysm. Atherosclerotic. RETROPERITONEUM: No gross mass or bulky adenopathy. APPENDIX: Not reliably identified. LARGE AND SMALL BOWEL: No overt mechanical bowel obstruction. Ascites as above. No free air. ABDOMINAL WALL: Generalized subcutaneous edema/anasarca without focal mass or drainable collection. PERITONEAL CAVITY: As above. PELVIS: Moderate relatively simple fluid in the pelvis. Bladder decompressed by a Rojo catheter. BONES: Spondylosis and osteopenia. OTHER: No other significant finding. IMPRESSION: 1. Limited abdominal valuation given noncontrast technique, motion and external source artifacts as d escribed. 2. Ascites. No overt bowel or urinary obstruction. 3. Generalized soft tissue edema/anasarca. TECHNICAL DOCUMENTATION: JOB ID: [id number] Quality ID # [id number]: Final reports with documentation of one or more dose reduction techniques (e.g., Au tomated exposure control, adjustment of the mA and/or kV according to patient size, use of iterative reconstruction technique) 2010 [employer]- All Rights Reserved Reading location - IP/workstation name: [email or web address]
--- NOTE | 2019-06-10 12:28 | RADIOLOGY REPORT (SQ) ---
EXAM DESCRIPTION: CT HEAD WITHOUT COMPLETED DATE/TIME: 06/10/2019 11:26 am REASON FOR STUDY: altered mental status COMPARISON: 12/19/2016 TECHNIQUE: Axial images acquired through the brain without intravenous contrast. Images reviewed wit h bone, brain and subdural windows. Images stored on PACS. All CT scanners at this facility use dose modulation, iterative reconstruction, and/or weight based d osing when appropriate to reduce radiation dose to as low as reasonably achievable (ALARA). [facility]: Dose Right [facility]: CareDose [facility]: Dose Right [facility]: Teradose 4D [facility]: Smart [employer] RADIATION DOSE: CT Rad equipment meets quality standard of care and radiation dose reduction techniq ues were employed. CTDIvol: 53.2 mGy. DLP: 911 mGy-cm.. LIMITATIONS: None. FINDINGS: VENTRICLES: Normal size and contour. CEREBRUM: No masses. No hemorrhage. No midline shift. Stable appearance of the white matter. No evid ence for acute infarction. CEREBELLUM: No masses. No hemorrhage. No alteration of density. No evidence for acute infarction. EXTRA-AXIAL SPACES: No fluid collections. ORBITS AND GLOBE: No intra- or extraconal masses. Normal contour of globe without masses. CALVARIUM: No fracture. PARANASAL SINUSES: Left sphenoid mucosal thickening. SOFT TISSUES: No mass or hematoma. OTHER: No other significant finding. IMPRESSION: NO ACUTE INTRACRANIAL FINDINGS. EVIDENCE OF ACUTE STROKE: NO. TECHNICAL DOCUMENTATION: JOB ID: [id number] Quality ID # [id number]: Final reports with documentation of one or more dose reduction techniques (e.g., Au tomated exposure control, adjustment of the mA and/or kV according to patient size, use of iterative reconstruction technique) 2010 [employer]- All Rights Reserved Reading location - IP/workstation name: [email or web address]
[2019-06-10] MEDS: VANCOMYCIN HCL 750 MG in DEXTROSE 5%-WATER 250 ML IV SCH (12:38)
[2019-06-10] MEDS: PANTOPRAZOLE SODIUM 40 MG VIAL IV SCH ×2 (12:41→21:01)
--- NOTE | 2019-06-10 12:41 | Progress Note ---
Provider Note Provider Note: Spoke with Dr. Guthrie, pulmonlogist. He agrees that pt will need bronch. Pt may need to be reintubated for bronchoscopy. Wants an INR checked and to have her platelet level to be at least 50,000. Will check INR and transfuse platelets.
[2019-06-10 12:57] LABS: HEMATOCRIT 23.4 % (36.0-47.0); MEAN CORPUSCULAR HEMOGLOBIN 27.2 pg (27.0-33.4); MEAN CORPUSCULAR HGB CONC 32.8 g/dL (32.0-36.0); MEAN CORPUSCULAR VOLUME 83 fl (80-97); RED BLOOD COUNT 2.82 10^6/uL (3.72-5.28); RED CELL DISTRIBUTION WIDTH 17.9 % (11.5-14.0)
[2019-06-10] MEDS ORDERED: ACETAMINOPHEN 1,000 MG/100 ML RTUPB IV ONE (13:00)
[2019-06-10 13:04] LABS: INTERNATIONAL RATION (INR) 1.16; PROTHROMBIN TIME 14.9 SEC (11.4-15.4)
[2019-06-10 13:20] LABS: ABSOLUTE LYMPHOCYTES# (MANUAL) 0.3 10^3/uL (0.5-4.7); BAND NEUTROPHILS % (MANUAL) 2 % (3-5); BASOPHILS % (MANUAL) 0 % (0-2); EOSINOPHILS % (MANUAL) 0 % (0-6); LYMPHOCYTES % (MANUAL) 1 % (13-45); MONOCYTES % (MANUAL) 3 % (3-13); SEGMENTED NEUTROPHILS % (MAN) 94 % (42-78); TOTAL CELLS COUNTED 100
[2019-06-10 13:23] LABS: ANISOCYTOSIS 1+; PLATELET COMMENT DECREASED; TOXIC GRANULATION 1+
[2019-06-10 13:24] LABS: WHITE BLOOD COUNT 32.5 10^3/uL (4.0-10.5)
[2019-06-10 13:25] LABS: PLATELET COUNT 18 10^3/uL (150-450)
[2019-06-10 13:27] LABS: HEMOGLOBIN 7.7 g/dL (12.0-15.5)
[2019-06-10 15:23] LABS: HEMATOCRIT 22.7 % (36.0-47.0); MEAN CORPUSCULAR HEMOGLOBIN 27.4 pg (27.0-33.4); MEAN CORPUSCULAR HGB CONC 33.1 g/dL (32.0-36.0); MEAN CORPUSCULAR VOLUME 83 fl (80-97); RED BLOOD COUNT 2.74 10^6/uL (3.72-5.28); RED CELL DISTRIBUTION WIDTH 18.3 % (11.5-14.0)
[2019-06-10 16:10] LABS: HEMOGLOBIN 7.5 g/dL (12.0-15.5)
[2019-06-10 16:11] LABS: PLATELET COUNT 101 10^3/uL (150-450)
[2019-06-10 16:56] LABS: ARTERIAL BLOOD BASE EXCESS 4.6 mmol/L; ARTERIAL BLOOD FIO2 3L; ARTERIAL BLOOD H2CO3 1.29 mmol/L (1.05-1.35); ARTERIAL BLOOD HCO3 29.1 mmol/L (20-24); ARTERIAL BLOOD O2 SATURATION 84.1 % (94-98); ARTERIAL BLOOD PH 7.45 (7.35-7.45); ARTERIAL BLOOD PO2 46.4 mmHg (80-100); ARTERIAL BLOOD TOTAL CO2 30.4 mmol/L (21-25)
[2019-06-10 17:10] LABS: ANION GAP 16 (5-19); BLOOD UREA NITROGEN 33 mg/dL (7-20); CALCIUM 8.2 mg/dL (8.4-10.2); CARBON DIOXIDE 30 mmol/L (22-30); CHLORIDE 75 mmol/L (98-107); GLUCOSE 93 mg/dL (75-110); POTASSIUM 3.2 mmol/L (3.6-5.0)
--- NOTE | 2019-06-10 17:42 | Progress Note ---
Provider Note Provider Note: Spoke with Dr. Guthrie when he came to evaluate the patient. He would like to do a bronchoscopy when pt's infections is better controlled and when her platelets have been corrected. He states that pt may need to be reintubated for the bronchoscopy. I spoke with the sons and they are ok with reintubating the pt if the need arises. They have agreed to make her full code.
[2019-06-10] MEDS ORDERED: POTASSI CL 20 MEQ/50 ML RIDER 20 MEQ/50 ML RTUPB IV ONE (17:49)
[2019-06-10] MEDS: DEXTROSE 5%-WATER 500 ML with AMIODARONE HCL 900 MG IV PRN ×2 (17:51)
[2019-06-10] MEDS: POTASSI CL 20 MEQ/50 ML RIDER 20 MEQ/50 ML RTUPB IV SCH ×2 (18:00→21:05)
[2019-06-10] MEDS: MORPHINE SULFATE 10 MG/ML INJ IV PRN (20:57)
[2019-06-11] MEDS: DEXTROSE 5%-WATER 250 ML with PHENYLEPHRINE HCL 40 MG IV PRN ×2 (00:30)
[2019-06-11] MEDS ORDERED: ALBUTEROL SULFATE 0.083% NEB 2.5 MG/3 ML AMPUL NEB PRN (03:52)
[2019-06-11] MEDS: IPRATROPIUM/ALBUTEROL 0.5-2.5 MG/3 ML AMPUL NEB SCH ×6 (04:14→23:42)
--- NOTE | 2019-06-11 04:17 | RADIOLOGY REPORT (SQ) ---
CLINICAL HISTORY: acute SOB, wheezing COMPARISON: 06/10/2019. TECHNIQUE: XR CHEST 1 VIEW 06/11/2019 12:00 AM CATALOGUE ILLUSTRATOR FINDINGS: The heart is enlarged. There is continued large right upper lobe consolidation. There is medial left upper lobe airspace disease. There is a moderate right pleural effusion. There is no pneumothorax. There are no acute osseous findings. NG tube tip is in the stomach. Left IJ central line is unchanged. IMPRESSION: No change.
[2019-06-11 04:18] LABS: ARTERIAL BLOOD BASE EXCESS 7.6 mmol/L; ARTERIAL BLOOD H2CO3 1.35 mmol/L (1.05-1.35); ARTERIAL BLOOD O2 SATURATION 95.3 % (94-98); ARTERIAL BLOOD PCO2 44.8 mmHg (35-45); ARTERIAL BLOOD PH 7.47 (7.35-7.45); ARTERIAL BLOOD PO2 72.4 mmHg (80-100); ARTERIAL BLOOD TOTAL CO2 33.4 mmol/L (21-25)
[2019-06-11 04:20] LABS: ARTERIAL BLOOD FIO2 4L
[2019-06-11] MEDS: MORPHINE SULFATE 10 MG/ML INJ IV PRN ×3 (04:29→17:33)
[2019-06-11 04:32] LABS: PROTHROMBIN TIME 15.3 SEC (11.4-15.4)
[2019-06-11 04:38] LABS: HEMATOCRIT 24.6 % (36.0-47.0); MEAN CORPUSCULAR HGB CONC 32.4 g/dL (32.0-36.0); MEAN CORPUSCULAR VOLUME 84 fl (80-97); RED BLOOD COUNT 2.94 10^6/uL (3.72-5.28)
[2019-06-11 04:40] LABS: ALBUMIN 2.9 g/dL (3.5-5.0); ALKALINE PHOSPHATASE 73 U/L (38-126); ANION GAP 15 (5-19); ASPARTATE AMINO TRANSFERASE 11 U/L (14-36); BILIRUBIN,DIRECT 0.5 mg/dL (0.0-0.4); BILIRUBIN,TOTAL 0.9 mg/dL (0.2-1.3); BLOOD UREA NITROGEN 34 mg/dL (7-20); CALCIUM 8.1 mg/dL (8.4-10.2); CARBON DIOXIDE 31 mmol/L (22-30); CHLORIDE 77 mmol/L (98-107); GLUCOSE 103 mg/dL (75-110); POTASSIUM 3.5 mmol/L (3.6-5.0)
[2019-06-11 04:51] LABS: PLATELET COUNT 69 10^3/uL (150-450)
[2019-06-11] MEDS: DEXTROSE 5%-NORMAL SALINE 1,000 ML IV PRN (05:05)
[2019-06-11 05:11] LABS: ABSOLUTE LYMPHOCYTES# (MANUAL) 0.4 10^3/uL (0.5-4.7); ABSOLUTE MONOCYTES # (MANUAL) 0.4 10^3/uL (0.1-1.4); ANISOCYTOSIS 1+; BAND NEUTROPHILS % (MANUAL) 5 % (3-5); BASOPHILS % (MANUAL) 0 % (0-2); EOSINOPHILS % (MANUAL) 0 % (0-6); LYMPHOCYTES % (MANUAL) 1 % (13-45); MONOCYTES % (MANUAL) 1 % (3-13); PLATELET COMMENT ADEQUATE; POLYCHROMASIA 1+; SEGMENTED NEUTROPHILS % (MAN) 93 % (42-78); TOTAL CELLS COUNTED 100
[2019-06-11 05:14] LABS: WHITE BLOOD COUNT 37.5 10^3/uL (4.0-10.5)
[2019-06-11 06:24] LABS: ARTERIAL BLOOD BASE EXCESS 7.5 mmol/L; ARTERIAL BLOOD H2CO3 1.44 mmol/L (1.05-1.35); ARTERIAL BLOOD HCO3 32.4 mmol/L (20-24); ARTERIAL BLOOD O2 SATURATION 97.3 % (94-98); ARTERIAL BLOOD PCO2 47.8 mmHg (35-45); ARTERIAL BLOOD PH 7.45 (7.35-7.45); ARTERIAL BLOOD PO2 93.3 mmHg (80-100); ARTERIAL BLOOD TOTAL CO2 33.9 mmol/L (21-25)
[2019-06-11 06:25] LABS: ARTERIAL BLOOD FIO2 45%
--- NOTE | 2019-06-11 09:18 | PDOC CONSULTATION ---
Consultation Consult Date: 06/11/19 Attending physician:: JIM AGUILERA Provider Consulted: EMERITA ARITA Consult reason:: Patient with thrombocytopenia as well as concern of right lung mass History of Present Illness Admission Date/PCP: 06/06/19 00:55 IRIS APARICIO NP Patient complains of: Concern of right lung mass, thrombocytopenia History of Present Illness: KYLAH DUNHAM is a 63 year old female with recent complicated medical history, admission with what appeared to be a multifocal pneumonia, recently intubated and extubated after respiratory status improved but seem to have on imaging a postobstructive type picture, also platelet count had dropped on admission, HIT antibodies pending but INR was elevated upon admission more related most likely to a DIC type process/thrombocytopenia of sepsis. I reviewed imaging from 06/01 which was prior to discharge to the [facility], and chest x-ray appeared much more clear at that time. There is no mass-effect. But unfortunately there was no CT prior to discharge as patient was doing good from a respiratory status. She is a history of heavy tobacco use. Of note, the LDH on the previous pleural effusion was highly elevated. Past Medical History Cardiac Medical History: Denies: Coronary Artery Disease, Myocardial Infarction, Hypertension Pulmonary Medical History: Reports: Bronchitis, Chronic Obstructive Pulmonary Disease (COPD) - questionable Denies: Asthma, Pneumonia Neurological Medical History: Denies: Seizures Musculoskeltal Medical History: Reports: Arthritis - generalized Psychiatric Medical History: Reports: Depression Hematology: Reports: Anemia Past Surgical History Past Surgical History: Reports: Cholecystectomy, Orthopedic Surgery - astrid wrists, ankle, Tonsillectomy, Tubal Ligation Social History Information Source: Patient Smoking Status: Former Smoker - per previous documentations in chart - unknown if current smoker Frequency of Alcohol Use: None Hx Recreational Drug Use: No Drugs: None Hx Prescription Drug Abuse: No - Advance Directive Resuscitation Status: Do Not Resuscitate Family History Family History: Hypertension. denies: Malignancy Parental Family History Reviewed: Yes Children Family History Reviewed: Yes Sibling(s) Family History Reviewed.: Yes Medication/Allergy Home Medications: Citalopram Hydrobromide [Celexa 20 mg Tablet] 20 mg PO DAILY 06/06/19 Dicyclomine HCl [Bentyl 20 mg Tablet] 20 mg PO QID 06/06/19 Diltiazem HCl [Cardizem Cd 120 mg Capsule] 120 mg PO DAILY 06/06/19 Fluticasone Propionate [Flonase Nasal [place] 50 Mcg/[place] 16 gm] 2 spray NASL DAILY 06/06/19 Gabapentin Enacarbil [Horizant] 600 mg PO BID 06/06/19 Guaifenesin [Mucinex Sr 600 mg Tablet.sa] 600 mg PO Q12 06/06/19 Latanoprost [Xalatan 0.005% Oph Soln 2.5 ml] 1 drop OU QHS 06/06/19 Nabumetone [Relafen] 750 mg PO BID 06/06/19 Ropinirole HCl [Requip 0.25 mg Tablet] 0.25 mg PO BID 06/06/19 Tizanidine HCl [Zanaflex 4 mg Tablet] 4 mg PO Q6 06/06/19 Allergies/Adverse Reactions: No Known Allergies Allergy (Verified 01/11/17 10:27) Review of Systems ROS unobtainable: Due to mental status Physical Exam Vital Signs: Temp Pulse Resp BP Pulse Ox 98.2 F 76 13 101/66 93 06/11/19 08:00 06/11/19 08:00 06/11/19 08:00 06/11/19 08:00 06/11/19 08:00 Intake & Output 06/10/19 06/11/19 06/12/19 06:59 06:59 06:59 Intake Total 307 3784 Output Total 1175 672 0 Balance -868 3112 0 Weight 84.6 kg 86.9 kg General appearance: PRESENT: no acute distress, well-developed, well-nourished Head exam: PRESENT: atraumatic, normocephalic Eye exam: PRESENT: conjunctiva pink, EOMI, PERRLA. ABSENT: scleral icterus Ear exam: PRESENT: normal external ear exam Mouth exam: PRESENT: moist, tongue midline Neck exam: ABSENT: carotid bruit, JVD, lymphadenopathy, thyromegaly Respiratory exam: PRESENT: clear to auscultation astrid. ABSENT: rales, rhonchi, wheezes Cardiovascular exam: PRESENT: RRR. ABSENT: diastolic murmur, rubs, systolic murmur Pulses: PRESENT: normal dorsalis pedis pul Vascular exam: PRESENT: normal capillary refill GI/Abdominal exam: PRESENT: normal bowel sounds, soft. ABSENT: distended, guarding, mass, organolmegaly, rebound, tenderness Rectal exam: PRESENT: deferred Extremities exam: PRESENT: full ROM. ABSENT: calf tenderness, clubbing, pedal edema Neurological exam: ABSENT: motor sensory deficit Psychiatric exam: PRESENT: appropriate affect, normal mood. ABSENT: homicidal ideation, suicidal ideation Skin exam: PRESENT: dry, intact, warm. ABSENT: cyanosis, rash Results Laboratory Results: 06/11/19 03:44 06/11/19 03:44 06/10/19 06/10/19 06/10/19 06:53 12:30 15:10 WBC 32.5 H* 34.0 H* RBC 2.82 L 2.74 L Hgb 7.7 L 7.5 L Hct 23.4 L 22.7 L MCV 83 83 MCH 27.2 27.4 MCHC 32.8 33.1 RDW 17.9 H 18.3 H Plt Count 18 L* 101 L D Seg Neutrophils % Not Reportable Carbonic Acid HCO3/H2CO3 Ratio ABG pH ABG pCO2 ABG pO2 ABG HCO3 ABG O2 Saturation ABG Base Excess FiO2 Sodium Potassium Chloride Carbon Dioxide Anion Gap BUN Creatinine Est GFR ( Amer) Glucose Calcium Magnesium Total Bilirubin AST Alkaline Phosphatase Total Protein Albumin Blood Type A POSITIVE 06/10/19 06/10/19 06/11/19 16:35 16:45 03:30 WBC RBC Hgb Hct MCV MCH MCHC RDW Plt Count Seg Neutrophils % Carbonic Acid 1.29 1.35 HCO3/H2CO3 Ratio 22:1 23:1 ABG pH 7.45 7.47 H ABG pCO2 43.0 44.8 ABG pO2 46.4 L 72.4 L ABG HCO3 29.1 H 32.0 H ABG O2 Saturation 84.1 L 95.3 ABG Base Excess 4.6 7.6 FiO2 3L 4L Sodium 121.3 L Potassium 3.2 L Chloride 75 L Carbon Dioxide 30 Anion Gap 16 BUN 33 H Creatinine 2.51 H Est GFR ( Amer) 23 L Glucose 93 Calcium 8.2 L Magnesium 1.8 Total Bilirubin AST Alkaline Phosphatase Total Protein Albumin Blood Type 06/11/19 06/11/19 06/11/19 03:44 03:44 05:50 WBC 37.5 H* RBC 2.94 L Hgb 8.0 L Hct 24.6 L MCV 84 MCH 27.0 MCHC 32.4 RDW 18.0 H Plt Count 69 L Seg Neutrophils % Not Reportable Carbonic Acid 1.44 H HCO3/H2CO3 Ratio 22:1 ABG pH 7.45 ABG pCO2 47.8 H ABG pO2 93.3 ABG HCO3 32.4 H ABG O2 Saturation 97.3 ABG Base Excess 7.5 FiO2 45% Sodium 122.6 L Potassium 3.5 L Chloride 77 L Carbon Dioxide 31 H Anion Gap 15 BUN 34 H Creatinine 2.64 H Est GFR ( Amer) 22 L Glucose 103 Calcium 8.1 L Magnesium Total Bilirubin 0.9 AST 11 L Alkaline Phosphatase 73 Total Protein 5.0 L Albumin 2.9 L Blood Type 06/05/19 06/05/19 06/08/19 21:52 22:51 01:10 Creatine Kinase Cancelled CK-MB (CK-2) Troponin I Cancelled < 0.012 NT-Pro-B Natriuret Pep Cancelled [id number] H 06/08/19 06/08/19 01:10 02:00 Creatine Kinase < 20 L CK-MB (CK-2) 1.21 Troponin I 0.032 NT-Pro-B Natriuret Pep [id number] H Impressions: KUB X-Ray 06/06/19 00:00 IMPRESSION: Nasogastric tube in the gastric body Femoral line in place on the right Thoracentesis Ultrasound 06/08/19 00:00 IMPRESSION: Successful ultrasound-guided thoracentesis. Abdomen/Pelvis CT 06/10/19 00:00 IMPRESSION: 1. Extensive lung findings as above. When compared to 06/06/2019, right pleural effusion is slightly progressive and there is a new small left pleural effusion. Consolidation in the right lung has improved. Progressive interstitial infiltrate in the right upper lobe with new patchy interstitial infiltrate in the left upper lobe. 2. Other findings as above, stable. IMPRESSION: 1. Limited abdominal valuation given noncontrast technique, motion and external source artifacts as described. 2. Ascites. No overt bowel or urinary obstruction. 3. Generalized soft tissue edema/anasarca. Chest CT 06/10/19 00:00 IMPRESSION: 1. Extensive lung findings as above. When compared to 06/06/2019, right pleural effusion is slightly progressive and there is a new small left pleural effusion. Consolidation in the right lung has improved. Progressive interstitial infiltrate in the right upper lobe with new patchy interstitial infiltrate in th e left upper lobe. 2. Other findings as above, stable. IMPRESSION: 1. Limited abdominal valuation given noncontrast technique, motion and external source artifacts as described. 2. Ascites. No overt bowel or urinary obstruction. 3. Generalized soft tissue edema/anasarca. Head CT 06/10/19 00:00 IMPRESSION: NO ACUTE INTRACRANIAL FINDINGS. EVIDENCE OF ACUTE STROKE: NO. Chest X-Ray 06/11/19 00:00 IMPRESSION: No change. Status: Image reviewed by me Assessment & Plan - Diagnosis (1) Lung mass Is this a current diagnosis for this admission?: Yes Plan: Unsure if this is truly a postobstructive process but agree with bronchoscopy, right mainstem bronchus needs to be looked at to see if it is clear. Pulmonology wants antibiotics on for a few days prior to doing that, agree with this. As LDH was highly elevated recommended that when they re-tap the pleural effusion send for cytology as well as flow cytometry. This will help rule out a lymphoma process as well as evaluating for solid tumor malignancy (2) Thrombocytopenia Is this a current diagnosis for this admission?: Yes Plan: Most probably DIC/thrombocytopenia of sepsis. Continue with platelet transfusion if platelet gets under 10 or if patient is actively bleeding. - Time Time Spent: Greater than 70 Minutes - Inpatient Certification Based on my medical assessment, after consideration of the patient's comorbidities, presenting symptoms, or acuity I expect that the services needed warrant INPATIENT care.: Yes I certify that my determination is in accordance with my understanding of Medicare's requirements for reasonable and necessary INPATIENT services [42 CFR 412.3e].: Yes Medical Necessity: Risk of Complication if Not Cared For in Hospital
[2019-06-11] MEDS: FLUCONAZOLE 200 MG/NS RTU 200 MG/100 ML RTUPB IV SCH (10:14)
[2019-06-11] MEDS: MEROPENEM 500 MG in NORMAL SALINE 50 ML IV SCH ×2 (10:15→22:16)
[2019-06-11] MEDS: PANTOPRAZOLE SODIUM 40 MG VIAL IV SCH ×2 (10:15→22:08)
[2019-06-11] MEDS: VANCOMYCIN HCL 750 MG in DEXTROSE 5%-WATER 250 ML IV SCH (10:16)
[2019-06-11] MEDS: DEXTROSE 5%-WATER 500 ML with AMIODARONE HCL 900 MG IV PRN ×2 (10:47)
--- NOTE | 2019-06-11 11:55 | PDOC CRITICAL CARE PROG REPORT ---
General Date:: 06/11/19 - Critical Care Attending Progress Note Resuscitation Status: Full Code Reason for ICU Addmission:: PNA, acute respiratory failure, septic shock Physical Exam Vital Signs: Temp Pulse Resp BP Pulse Ox 98.2 F 85 18 106/68 100 06/11/19 08:00 06/11/19 10:00 06/11/19 10:23 06/11/19 10:23 06/11/19 10:23 Intake & Output 06/10/19 06/11/19 06/12/19 06:59 06:59 06:59 Intake Total 307 3784 500 Output Total 1175 672 150 Balance -868 3112 350 Weight 84.6 kg 86.9 kg Weight/Height Weight 86.9 kg Height 5 ft 6 in General appearance: PRESENT: mild distress, well-developed, well-nourished, other - on bipap Head exam: PRESENT: atraumatic, normocephalic Respiratory exam: PRESENT: accessory muscle use, rhonchi Cardiovascular exam: PRESENT: irregular rhythm GI/Abdominal exam: PRESENT: soft Gentrourinary exam: PRESENT: indwelling catheter Extremities exam: PRESENT: +1 edema Neurological exam: PRESENT: other - lethargic Laboratory/Radiographs Laboratory Results: 06/11/19 03:44 06/11/19 03:44 06/10/19 06/10/19 06/10/19 06:53 12:30 15:10 WBC 32.5 H* 34.0 H* RBC 2.82 L 2.74 L Hgb 7.7 L 7.5 L Hct 23.4 L 22.7 L MCV 83 83 MCH 27.2 27.4 MCHC 32.8 33.1 RDW 17.9 H 18.3 H Plt Count 18 L* 101 L D Seg Neutrophils % Not Reportable Carbonic Acid HCO3/H2CO3 Ratio ABG pH ABG pCO2 ABG pO2 ABG HCO3 ABG O2 Saturation ABG Base Excess FiO2 Sodium Potassium Chloride Carbon Dioxide Anion Gap BUN Creatinine Est GFR ( Amer) Glucose Calcium Magnesium Total Bilirubin AST Alkaline Phosphatase Total Protein Albumin Blood Type A POSITIVE 06/10/19 06/10/19 06/11/19 16:35 16:45 03:30 WBC RBC Hgb Hct MCV MCH MCHC RDW Plt Count Seg Neutrophils % Carbonic Acid 1.29 1.35 HCO3/H2CO3 Ratio 22:1 23:1 ABG pH 7.45 7.47 H ABG pCO2 43.0 44.8 ABG pO2 46.4 L 72.4 L ABG HCO3 29.1 H 32.0 H ABG O2 Saturation 84.1 L 95.3 ABG Base Excess 4.6 7.6 FiO2 3L 4L Sodium 121.3 L Potassium 3.2 L Chloride 75 L Carbon Dioxide 30 Anion Gap 16 BUN 33 H Creatinine 2.51 H Est GFR ( Amer) 23 L Glucose 93 Calcium 8.2 L Magnesium 1.8 Total Bilirubin AST Alkaline Phosphatase Total Protein Albumin Blood Type 06/11/19 06/11/19 06/11/19 03:44 03:44 05:50 WBC 37.5 H* RBC 2.94 L Hgb 8.0 L Hct 24.6 L MCV 84 MCH 27.0 MCHC 32.4 RDW 18.0 H Plt Count 69 L Seg Neutrophils % Not Reportable Carbonic Acid 1.44 H HCO3/H2CO3 Ratio 22:1 ABG pH 7.45 ABG pCO2 47.8 H ABG pO2 93.3 ABG HCO3 32.4 H ABG O2 Saturation 97.3 ABG Base Excess 7.5 FiO2 45% Sodium 122.6 L Potassium 3.5 L Chloride 77 L Carbon Dioxide 31 H Anion Gap 15 BUN 34 H Creatinine 2.64 H Est GFR ( Amer) 22 L Glucose 103 Calcium 8.1 L Magnesium Total Bilirubin 0.9 AST 11 L Alkaline Phosphatase 73 Total Protein 5.0 L Albumin 2.9 L Blood Type 06/05/19 06/05/19 06/08/19 21:52 22:51 01:10 Creatine Kinase Cancelled CK-MB (CK-2) Troponin I Cancelled < 0.012 NT-Pro-B Natriuret Pep Cancelled [id number] H 06/08/19 06/08/19 01:10 02:00 Creatine Kinase < 20 L CK-MB (CK-2) 1.21 Troponin I 0.032 NT-Pro-B Natriuret Pep [id number] H Impressions: KUB X-Ray 06/06/19 00:00 IMPRESSION: Nasogastric tube in the gastric body Femoral line in place on the right Abdomen/Pelvis CT 06/10/19 00:00 IMPRESSION: 1. Extensive lung findings as above. When compared to 06/06/2019, right pleural effusion is slightly progressive and there is a new small left pleural effusion. Consolidation in the right lung has improved. Progressive interstitial infiltrate in the right upper lobe with new patchy interstitial infiltrate in the left upper lobe. 2. Other findings as above, stable. IMPRESSION: 1. Limited abdominal valuation given noncontrast technique, motion and external source artifacts as described. 2. Ascites. No overt bowel or urinary obstruction. 3. Generalized soft tissue edema/anasarca. Chest CT 06/10/19 00:00 IMPRESSION: 1. Extensive lung findings as above. When compared to 06/06/2019, right pleural effusion is slightly progressive and there is a new small left pleural effusion. Consolidation in the right lung has improved. Progressive interstitial infilt rate in the right upper lobe with new patchy interstitial infiltrate in the left upper lobe. 2. Other findings as above, stable. IMPRESSION: 1. Limited abdominal valuation given noncontrast technique, motion and external source artifacts as described. 2. Ascites. No overt bowel or urinary obstruction. 3. Generalized soft tissue edema/anasarca. Head CT 06/10/19 00:00 IMPRESSION: NO ACUTE INTRACRANIAL FINDINGS. EVIDENCE OF ACUTE STROKE: NO. Chest X-Ray 06/11/19 00:00 IMPRESSION: No change. Assessment and Plan - Diagnosis (1) Acute respiratory failure Qualifiers: Respiratory failure complication: unspecified whether with hypoxia or hypercapnia Qualified Code(s): J96.00 - Acute respiratory failure, unspecified whether with hypoxia or hypercapnia Is this a current diagnosis for this admission?: Yes (2) HCAP (healthcare-associated pneumonia) Is this a current diagnosis for this admission?: Yes (3) Septic shock Is this a current diagnosis for this admission?: Yes (4) Bacteremia Is this a current diagnosis for this admission?: Yes (5) UTI (urinary tract infection) Qualifiers: Urinary tract infection type: acute cystitis Hematuria presence: without hematuria Qualified Code(s): N30.00 - Acute cystitis without hematuria Is this a current diagnosis for this admission?: Yes (6) COPD (chronic obstructive pulmonary disease) Is this a current diagnosis for this admission?: Yes (7) Acute renal failure Qualifiers: Acute renal failure type: unspecified Qualified Code(s): N17.9 - Acute kidney failure, unspecified Is this a current diagnosis for this admission?: Yes (8) Thrombocytopenia Is this a current diagnosis for this admission?: Yes Plan Summary: Assessment: Critically ill 63 yo woman with acute respiratory failure, ARDS, E.coli PNA, septic shock, KATHLEEN, PUD, recent GI bleed, E.coli bacteremia, UTI, thrombocytopenia, possible lung cancer. Plan: 1. Respiratory: acute respiratory failure Pt extubated 06/09. Now on bipap. I wanted to reintubate pt early this am, but her sons declined intubation asking if I could wait a few hours to see if she improved. 2. Pulmonary: ARDS, PNA due to E.coli and tristin, COPD. Right plueral effusion, ?post-obstructive PNA. s/p thoracentesis on 06/08. Pleural fluid LDH was 837. I am concerned this may represent a malignancy. Dr. Guthrie will bronch pt in the next 1-2 days. ATBX Day 6. On vanc, meropenem, diflucan. Right pleural effusion has re- accumulated. Will consult radiology for a right pigtail catheter. 3. CV: hypotension due to septic shock, resolving. Is off pressors. Will wean as tolerated. Afib, amiodarone restarted. 4. ID: septic shock, PNA due to E.coli and tristin, E.coli bacteremia, UTI. ATBX Day 6. On vanc, meropenem, diflucan. WBC still elevated at 37.5. 5. Renal: KATHLEEN. Cr is 2.64. Pt is making urine. Pt is not acidotic. No need for dialysis at this time. Hyponatremia, resolving. Na has increased to 122. ?SIADH from malignancy. Will consult nephrology 6. GI/Surg: PUD and recent GI bleed requiring 4 units PRBC last admission. Protonix 40 mg IV BID. s/p EGD on 06/03. No signs of bleeding 7. Heme/onc: Hg is 8.0. No signs of bleeding. Coagulopathy, resolved. s/p vitamin K. Now with thrombocytopenia due to sepsis. s/p platelet transfusion yesterday in anticipation of bronchoscopy. Platelet count has dropped to 69. Possible malignancy. D/W Dr. Monk 8. Endocrine: Accuchecks, SSI. Off stress dose steroids. 9. Wound: sacral decubitus ulcer stage II, present on admission 10. Nutrition: tube feeds on hold since extubation. NPO. Will start D5NS IVF 11. Prophylaxis: scds. No pharmacologic DVT prophylaxis due to thrombocytopenia 12. Ethics: Pt is now full code 13. Sons at bedside. Updated on pt condition and plan of care. Critical care time= 60 min, excluding procedures Critical Time Critical Time (minutes): 60 Level of Care: ICU -: 1. The care of a critical patient is a dynamic process. This note is a videotape sales representative synopsis but static in nature. The timeframe for treatments given in order is not necessarily the actual time these treatments may have been done. 2. This patient requires critical care secondary to ongoing requirements for therapy not offered or safe outside the critical care environment. Transfer to a lower level of care will result in altered life or limb morbidity and mortality. 3. Multidisciplinary rounds completed. 4. ABCDE bundle addressed.
--- NOTE | 2019-06-11 12:41 | PDOC CONSULTATION ---
Consultation Consult Date: 06/11/19 Attending physician:: JIM AGUILERA Provider Consulted: JEFF FERRARI Consult reason:: lung mass/pna History of Present Illness Admission Date/PCP: 06/06/19 00:55 IRIS APARICIO NP History of Present Illness: KYLAH DUNHAM is a 63 year old female presented to ED,unresponsive 24hrs s/p discharge for major GI bleed from antral ulcer.She was intubated and central line started in ED,culture blood,sputum and urine po e coli.She slowly improved and was weaned from iv pressor's and mechanical ventilatio Past Medical History Cardiac Medical History: Denies: Coronary Artery Disease, Myocardial Infarction, Hypertension Pulmonary Medical History: Reports: Bronchitis, Chronic Obstructive Pulmonary Disease (COPD) - questionable Denies: Asthma, Pneumonia Neurological Medical History: Denies: Seizures GI Medical History: Reports: Other - s/p ERCP 12-29 Musculoskeltal Medical History: Reports: Arthritis - generalized Psychiatric Medical History: Reports: Depression Hematology: Reports: Anemia Denies: Sickle Cell Disease Infectious Medical History: Denies: HIV Past Surgical History Past Surgical History: Reports: Cholecystectomy, Orthopedic Surgery - astrid wrists, ankle, Tonsillectomy, Tubal Ligation Social History Information Source: [facility] Records Smoking Status: Current Some Day Smoker - per previous documentations in chart - unknown if current smoker Passive smoke exposure as: Both Frequency of Alcohol Use: None Hx Recreational Drug Use: No Drugs: None Hx Prescription Drug Abuse: No Do you have pets?: Yes Have you had any respiratory illnesses as a child?: No Have you been exposed to any sick contacts recently?: No Have you had any recent respiratory illnesses?: No Have you travelled outside of [place] in the past 12 months?: No - Advance Directive Resuscitation Status: Full Code Family History Family History: COPD, Hypertension. denies: Malignancy Parental Family History Reviewed: Yes Children Family History Reviewed: Yes Sibling(s) Family History Reviewed.: Yes Medication/Allergy Home Medications: Citalopram Hydrobromide [Celexa 20 mg Tablet] 20 mg PO DAILY 06/06/19 Dicyclomine HCl [Bentyl 20 mg Tablet] 20 mg PO QID 06/06/19 Diltiazem HCl [Cardizem Cd 120 mg Capsule] 120 mg PO DAILY 06/06/19 Fluticasone Propionate [Flonase Nasal [place] 50 Mcg/[place] 16 gm] 2 spray NASL DAILY 06/06/19 Gabapentin Enacarbil [Horizant] 600 mg PO BID 06/06/19 Guaifenesin [Mucinex Sr 600 mg Tablet.sa] 600 mg PO Q12 06/06/19 Latanoprost [Xalatan 0.005% Oph Soln 2.5 ml] 1 drop OU QHS 06/06/19 Nabumetone [Relafen] 750 mg PO BID 06/06/19 Ropinirole HCl [Requip 0.25 mg Tablet] 0.25 mg PO BID 06/06/19 Tizanidine HCl [Zanaflex 4 mg Tablet] 4 mg PO Q6 06/06/19 Acetaminophen with Codeine [Tylenol #3 Tablet] 1 each PO Q4HP PRN 06/15/19 Albuterol Sulfate [Proair Respiclick] 90 mcg IH 06/15/19 Albuterol Sulfate [Proventil 0.5% Neb 2.5 mg/0.5 ml Vial.neb] 2.5 mg NEB 06/15/19 Budesonide [Pulmicort Neb 0.5 mg/2 ml Ampul] 0.5 mg NEB 06/15/19 Ergocalciferol (Vitamin D2) [Vitamin D2] 50,000 unit PO 06/15/19 Latanoprost [Xalatan 0.005% Oph Soln 2.5 ml] 1 drop OP QHS 06/15/19 Levorphanol Tartrate 0.5 mg PO 06/15/19 Lipase/Protease/Amylase [Zenpep Dr 40,000 Unit Capsule] 40,000 units PO 06/15/19 Lisinopril/Hydrochlorothiazide [Lisinopril-Hctz 10-12.5 mg Tab] 10 - 12.5 PO 06/15/19 Melatonin 10 mg PO 06/15/19 Allergies/Adverse Reactions: No Known Allergies Allergy (Verified 01/11/17 10:27) Review of Systems ROS unobtainable: Due to mental status Physical Exam Vital Signs: Temp Pulse Resp BP Pulse Ox 98.2 F 80 14 106/68 100 06/11/19 08:00 06/11/19 12:14 06/11/19 12:14 06/11/19 10:23 06/11/19 12:14 Intake & Output 06/10/19 06/11/1906/12/19 06:59 06:59 06:59 Intake Total 307 3784 500 Output Total 1175 672 150 Balance -868 3112 350 Weight 84.6 kg 86.9 kg General appearance: PRESENT: no acute distress, disheveled, well-developed, well-nourished. ABSENT: cooperative Head exam: PRESENT: atraumatic, normocephalic Eye exam: PRESENT: conjunctiva pale, EOMI. ABSENT: nystagmus, periorbital swelling, scleral icterus Mouth exam: PRESENT: dry mucosa, neck supple, tongue midline Neck exam: ABSENT: carotid bruit, full ROM, JVD, lymphadenopathy, meningismus, tenderness, thyromegaly, tracheal deviation, tracheostomy, other Respiratory exam: PRESENT: crackles - r ant r lat chest wall, decreased breath s ounds, prolonged expiratory phas, rhonchi. ABSENT: retraction, tachypnea Cardiovascular exam: PRESENT: RRR, +S1, +S2, tachycardia Pulses: PRESENT: normal radial pulses GI/Abdominal exam: PRESENT: soft. ABSENT: distended, guarding, mass, tenderness Gentrourinary exam: PRESENT: indwelling catheter Extremities exam: PRESENT: pedal edema. ABSENT: calf tenderness, clubbing, joint swelling, tenderness Musculoskeletal exam: ABSENT: ambulatory, deformity, dislocation Neurological exam: PRESENT: altered Psychiatric exam: PRESENT: flat affect Skin exam: PRESENT: dry, warm Results Laboratory Results: 06/11/19 03:44 06/11/19 03:44 06/10/19 06/10/19 06/10/19 06:53 12:30 15:10 WBC 32.5 H* 34.0 H* RBC 2.82 L 2.74 L Hgb 7.7 L 7.5 L Hct 23.4 L 22.7 L MCV 83 83 MCH 27.2 27.4 MCHC 32.8 33.1 RDW 17.9 H 18.3 H Plt Count 18 L* 101 L D Seg Neutrophils % Not Reportable Carbonic Acid HCO3/H2CO3 Ratio ABG pH ABG pCO2 ABG pO2 ABG HCO3 ABG O2 Saturation ABG Base Excess FiO2 Sodium Potassium Chloride Carbon Dioxide Anion Gap BUN Creatinine Est GFR ( Amer) Glucose Calcium Magnesium Total Bilirubin AST Alkaline Phosphatase Total Protein Albumin Blood Type A POSITIVE 06/10/19 06/10/19 06/11/19 16:35 16:45 03:30 WBC RBC Hgb Hct MCV MCH MCHC RDW Plt Count Seg Neutrophils % Carbonic Acid 1.29 1.35 HCO3/H2CO3 Ratio 22:1 23:1 ABG pH 7.45 7.47 H ABG pCO2 43.0 44.8 ABG pO2 46.4 L 72.4 L ABG HCO3 29.1 H 32.0 H ABG O2 Saturation 84.1 L 95.3 ABG Base Excess 4.6 7.6 FiO2 3L 4L Sodium 121.3 L Potassium 3.2 L Chloride 75 L Carbon Dioxide 30 Anion Gap 16 BUN 33 H Creatinine 2.51 H Est GFR ( Amer) 23 L Glucose 93 Calcium 8.2 L Magnesium 1.8 Total Bilirubin AST Alkaline Phosphatase Total Protein Albumin Blood Type 06/11/19 06/11/19 06/11/19 03:44 03:44 05:50 WBC 37.5 H* RBC 2.94 L Hgb 8.0 L Hct 24.6 L MCV 84 MCH 27.0 MCHC 32.4 RDW 18.0 H Plt Count 69 L Seg Neutrophils % Not Reportable Carbonic Acid 1.44 H HCO3/H2CO3 Ratio 22:1 ABG pH 7.45 ABG pCO2 47.8 H ABG pO2 93.3 ABG HCO3 32.4 H ABG O2 Saturation 97.3 ABG Base Excess 7.5 FiO2 45% Sodium 122.6 L Potassium 3.5 L Chloride 77 L Carbon Dioxide 31 H Anion Gap 15 BUN 34 H Creatinine 2.64 H Est GFR ( Amer) 22 L Glucose 103 Calcium 8.1 L Magnesium Total Bilirubin 0.9 AST 11 L Alkaline Phosphatase 73 Total Protein 5.0 L Albumin 2.9 L Blood Type 06/08/19 11:15 Pleural Fluid Gram Stain - Final 06/08/19 11:15 Pleural Fluid Body Fluid Culture - Final NO AEROBIC OR ANAEROBIC ORGANISMS RECOVERED 06/05/19 06/05/19 06/08/19 21:52 22:51 01:10 Creatine Kinase Cancelled CK-MB (CK-2) Troponin I Cancelled < 0.012 NT-Pro-B Natriuret Pep Cancelled 70900 H 06/08/19 06/08/19 01:10 02:00 Creatine Kinase < 20 L CK-MB (CK-2) 1.21 Troponin I 0.032 NT-Pro-B Natriuret Pep 765118 H Impressions: KUB X-Ray 06/06/19 00:00 IMPRESSION: Nasogastric tube in the gastric body Femoral line in place on the right Abdomen/Pelvis CT 06/10/19 00:00 IMPRESSION: 1. Extensive lung findings as above. When compared to 06/06/2019, right pleural effusion is slightly progressive and there is a new small left pleural effusion. Consolidation in the right lung has improved. Progressive interstitial infiltrate in the right upper lobe with new patchy interstitial infiltrate in the left upper lobe. 2. Other findings as above, stable. IMPRESSION: 1. Limited abdominal valuation given noncontrast technique, motion and external source artifacts as described. 2. Ascites. No overt bowel or urinary obstruction. 3. Generalized soft tissue edema/anasarca. Chest CT 06/10/19 00:00 IMPRESSION: 1. Extensive lung findings as above. When compared to 06/06/2019, right pleural effusion is slightly progressive and there is a new small left pleural effusion. Consolidation in the right lung has improved. Progressive interstitial i nfiltrate in the right upper lobe with new patchy interstitial infiltrate in the left upper lobe. 2. Other findings as above, stable. IMPRESSION: 1. Limited abdominal valuation given noncontrast technique, motion and external source artifacts as described. 2. Ascites. No overt bowel or urinary obstruction. 3. Generalized soft tissue edema/anasarca. Head CT 06/10/19 00:00 IMPRESSION: NO ACUTE INTRACRANIAL FINDINGS. EVIDENCE OF ACUTE STROKE: NO. Chest X-Ray 06/11/19 00:00 IMPRESSION: No change. Assessment & Plan - Diagnosis (1) Acute respiratory failure Qualifiers: Respiratory failure complication: unspecified whether with hypoxia or hyper capnia Qualified Code(s): J96.00 - Acute respiratory failure, unspecified whether with hypoxia or hypercapnia Is this a current diagnosis for this admission?: Yes Plan: improved off of vent (2) COPD (chronic obstructive pulmonary disease) Qualifiers: COPD type: emphysema Emphysema type: centrilobular Qualified Code(s): J43.2 - Centrilobular emphysema Is this a current diagnosis for this admission?: Yes Plan: Generic Name Dose Route Start Last Admin Trade Name Freq PRN Reason Stop Dose Admin Albuterol/Ipratropium 3 ml 06/06/19 08:33 06/11/19 12:13 Duoneb 3 Ml Ampul NEB 07/06/19 08:32 3 ml RTQ4 AHMET Albuterol 2.5 mg 06/11/19 03:52 Ventolin 0.083% Neb 2.5 Mg/3 Ml Ampul NEB 07/11/19 03:51 RTQ2HP PRN FOR WHEEZING consider inhaled anti-cholinergic (3) HCAP (healthcare-associated pneumonia) Is this a current diagnosis for this admission?: Yes Plan: Generic Name Dose Route Start Last Admin Trade Name Freq PRN Reason Stop Dose Admin Vancomycin HCl 500 mg/ 100 mls @ 66.667 mls/hr 06/12/19 10:00 Dextrose IV 06/17/19 09:59 DAILY AHMET Fluconazole/Sodium Chloride 200 mg in 100 mls @ 100 mls/hr 06/08/19 10:00 06/11/19 10:14 Diflucan Rtu 200 Mg/Ns 100 Ml Premix IV 06/15/19 09:59 100 mls/hr DAILY AHMET 100 mls/hr Meropenem 500 mg/ Sodium 50 mls @ 100 mls/hr 06/10/19 10:00 06/11/19 10:15 Chloride IV 06/17/19 09:59 100 mls/hr Q12 AHMET 100 mls/hr 06/06/19 08:50 Gram Stain - Final Tracheal Aspirate Sputum Culture - Final Escherichia Coli C.albicans/C.dubliniensis Normal Tri Absent 06/05/19 23:46 Blood Culture (PCR) - Final Blood Blood Culture - Final Escherichia Coli Escherichia Coli 06/05/19 22:51 Blood Culture (PCR) - Final Blood Blood Culture - Final Escherichia Coli Escherichia Coli Labs- All tests 24 hr 06/10/19 15:10 Hgb 7.5 L Hct 22.7 L Plt Count 101 L D (4) Lung mass Is this a current diagnosis for this admission?: Yes Plan: pna radiograph have improved ;WBC remains elevated ;relative hypoxia hyponatremia thrombocytosis - Time Time Spent: 50 to 70 Minutes Total Critical Time (Minutes): 65
--- NOTE | 2019-06-11 13:03 | RADIOLOGY REPORT (SQ) ---
EXAM DESCRIPTION: CHEST SINGLE VIEW COMPLETED DATE/TIME: 06/11/2019 12:49 pm REASON FOR STUDY: Chest Tube Placement COMPARISON: 06/11/2019 at 0335 hours. EXAM PARAMETERS: NUMBER OF VIEWS: One view. TECHNIQUE: Single frontal radiographic view of the chest acquired. RADIATION DOSE: NA LIMITATIONS: None. FINDINGS: LUNGS AND PLEURA: Upper lobe airspace disease, right greater than left, unchanged. Right pleural effusion. No pneumothorax. MEDIASTINUM AND HILAR STRUCTURES: No masses. Contour normal. HEART AND VASCULAR STRUCTURES: Heart normal in size. Normal vasculature. BONES: No acute findings. HARDWARE: Pigtail catheter in the lower right chest. Stable nasogastric tube and central line. OTHER: No other significant finding. IMPRESSION: NO SIGNIFICANT INTERVAL CHANGE. NO PNEUMOTHORAX FOLLOWING PLACEMENT OF PIGTAIL PLEURAL DRAINAGE CATHETER ON THE RIGHT. TECHNICAL DOCUMENTATION: JOB ID: [id number] [employer]- All Rights Reserved Reading location - IP/workstation name: [email or web address]
[2019-06-11 14:23] LABS: FLUID SOURCE LUNG; FLUID TYPE PLEURAL
[2019-06-11 14:24] LABS: FLUID APPEARANCE CLOUDY; FLUID COLOR YELLOW; FLUID VISCOSITY SLIGHTLY VISCOUS
[2019-06-11 14:29] LABS: PATH REVIEW PATHOLOGIST REVIEWED
[2019-06-11 14:35] LABS: PATH REVIEW PATHOLOGIST REVIEWED
--- NOTE | 2019-06-11 15:28 | RADIOLOGY REPORT (SQ) ---
EXAM DESCRIPTION: U/S THORACENTESIS WITH IMAGING COMPLETED DATE/TIME: 06/11/2019 1:49 pm REASON FOR STUDY: right effusion, please insert pigtail catheter COMPARISON: None. LIMITATIONS: None. PROCEDURE: Procedure, risks, benefit, and alternative explained to patient who then gave written con sent. The posterior right chest wall was marked using ultrasound guidance. A time-out was called fo r correct marking verification. Chest prepped and draped using sterile technique. Local anesthesia a chieved using 10 ml of 1% lidocaine injection. A 10 English pigtail catheter was introduced into the right pleural space. Fluid was aspirated. The catheter was attached to the closed drainage device a nd secured to the skin. The entry site was covered with sterile bandage. No immediate complications noted. Images acquired during the procedure were stored on PACS. FINDINGS: ENTRY SITE: posterior right chest. FLUID ANALYSIS: Straw-colored. OTHER: Fluid sent to the lab for testing. IMPRESSION: SUCCESSFUL THORACENTESIS USING ULTRASOUND GUIDANCE. COMMENT: Patient medication list reviewed: Yes- Quality ID# [id number]:Eligible professional attests to doc umenting in the medical record they obtained, updated, or reviewed the patient's current medications. TECHNICAL DOCUMENTATION: JOB ID: [id number] [employer]- All Rights Reserved Reading location - IP/workstation name: [email or web address]
[2019-06-11 15:30] LABS: OSMOLALITY,URINE 122 mOsm/kg (300-900)
[2019-06-11 15:36] LABS: URINE SODIUM < 5 mmol/L (30-90)
--- NOTE | 2019-06-11 15:53 | PDOC CONSULTATION ---
Consultation Consult Date: 06/11/19 Provider Consulted: Rupesh CALLE Consult reason:: KATHLEEN, Hyponatremia History of Present Illness Admission Date/PCP: 06/06/19 00:55 IRIS APARICIO NP History of Present Illness: KYLAH DUNHAM is a 63 year old female with a history of hypertension, chronic pain syndrome and depression who lives at home by herself was brought in from a rehab facility with complaints of progressive shortness of breath and coughing. She had recently been admitted and discharged around of this month with upper GI bleed and KATHLEEN with a creatinine at discharge of 1.8. At that time EGD had shown a very large antral/prepyloric ulcer without active bleeding. Her current admission creatinine was normal at 0.6 and her sodium was normal at 139. Patient went into respiratory failure and had been intubated and currently extubated. She was found to have right sided pneumonia in septic shock with sputum and blood cultures growing E. coli and was begun on fluids and pressors and currently she has been weaned off the pressors. She also showed features indicative of DIC. She is still in some respiratory failure and is currently on BiPAP. Besides all of these, she has also developed new onset atrial fibrillation and is on loading dose of amiodarone. Labs and medications were reviewed. Creatinine has remained lately stable around 2.5-2.6 for the last 3 days and she is nonoliguric. Discussions were done with the treating nurse. Past Medical History Cardiac Medical History: Reports: Hypertension-primary Denies: Coronary Artery Disease, Myocardial Infarction Pulmonary Medical History: Reports: Bronchitis, Chronic Obstructive Pulmonary Disease (COPD) - questionable Denies: Asthma, Pneumonia Neurological Medical History: Denies: Seizures GI Medical History: Reports: Other - s/p ERCP 12-29 Musculoskeltal Medical History: Reports: Arthritis - generalized Psychiatric Medical History: Reports: Depression Infectious Medical History: Denies: HIV Past Surgical History Past Surgical History: Reports: Cholecystectomy, Orthopedic Surgery - astrid wrists, ankle, Tonsillectomy, Tubal Ligation Social History Smoking Status: Current Some Day Smoker - per previous documentations in chart - unknown if current smoker Frequency of Alcohol Use: None Hx Recreational Drug Use: No Drugs: None Hx Prescription Drug Abuse: No - Advance Directive Resuscitation Status: Full Code Family History Parental Family History Reviewed: No Children Family History Reviewed: No Sibling(s) Family History Reviewed.: No Medication/Allergy Home Medications: Citalopram Hydrobromide [Celexa 20 mg Tablet] 20 mg PO DAILY 06/06/19 Dicyclomine HCl [Bentyl 20 mg Tablet] 20 mg PO QID 06/06/19 Diltiazem HCl [Cardizem Cd 120 mg Capsule] 120 mg PO DAILY 06/06/19 Fluticasone Propionate [Flonase Nasal Josephine 50 Mcg/Josephine 16 gm] 2 spray NASL DAILY 06/06/19 Gabapentin Enacarbil [Horizant] 600 mg PO BID 06/06/19 Guaifenesin [Mucinex Sr 600 mg Tablet.sa] 600 mg PO Q12 06/06/19 Latanoprost [Xalatan 0.005% Oph Soln 2.5 ml] 1 drop OU QHS 06/06/19 Nabumetone [Relafen] 750 mg PO BID 06/06/19 Ropinirole HCl [Requip 0.25 mg Tablet] 0.25 mg PO BID 06/06/19 Tizanidine HCl [Zanaflex 4 mg Tablet] 4 mg PO Q6 06/06/19 Allergies/Adverse Reactions: No Known Allergies Allergy (Verified 01/11/17 10:27) Review of Systems ROS unobtainable: Due to mental status - Discussions were done with the treating nurse and chart review was done. Patient is currently on BiPAP and looks very feeble and is not able to answer properly to questions. Physical Exam Vital Signs: Temp Pulse Resp BP Pulse Ox 97.3 F 76 14 110/86 H 100 06/11/19 12:00 06/11/19 15:25 06/11/19 15:25 06/11/19 14:08 06/11/19 15:25 Intake & Output 06/10/19 06/11/19 06/12/19 06:59 06:59 06:59 Intake Total 307 3784 500 Output Total 1175 672 250 Balance -868 3112 250 Weight 84.6 kg 86.9 kg General appearance: PRESENT: mild distress Eye exam: PRESENT: EOMI, PERRLA. ABSENT: scleral icterus Mouth exam: PRESENT: moist Neck exam: ABSENT: lymphadenopathy, meningismus, tenderness Respiratory exam: PRESENT: clear to auscultation astrid, decreased breath sounds. ABSENT: crackles Cardiovascular exam: PRESENT: +S1, +S2 GI/Abdominal exam: PRESENT: normal bowel sounds, soft. ABSENT: organomegaly, tenderness Extremities exam: PRESENT: +2 edema Neurological exam: PRESENT: altered. ABSENT: oriented to person, oriented to place Skin exam: ABSENT: cyanosis, erythema, mottled Results Laboratory Results: 06/11/19 03:44 06/11/19 03:44 06/10/19 06/10/19 06/10/19 15:10 16:35 16:45 WBC 34.0 H* RBC 2.74 L Hgb 7.5 L Hct 22.7 L MCV 83 MCH 27.4 MCHC 33.1 RDW 18.3 H Plt Count 101 L D Seg Neutrophils % Carbonic Acid 1.29 HCO3/H2CO3 Ratio 22:1 ABG pH 7.45 ABG pCO2 43.0 ABG pO2 46.4 L ABG HCO3 29.1 H ABG O2 Saturation 84.1 L ABG Base Excess 4.6 FiO2 3L Sodium 121.3 L Potassium 3.2 L Chloride 75 L Carbon Dioxide 30 Anion Gap 16 BUN 33 H Creatinine 2.51 H Est GFR ( Amer) 23 L Glucose 93 Calcium 8.2 L Magnesium 1.8 Total Bilirubin AST Alkaline Phosphatase Total Protein Albumin Urine Osmolality Fluid Type Fluid Source Fluid Color Fluid Appearance Fluid Viscosity Fluid WBC Fluid RBC 06/11/19 06/11/19 06/11/19 03:30 03:44 03:44 WBC 37.5 H* RBC 2.94 L Hgb 8.0 L Hct 24.6 L MCV 84 MCH 27.0 MCHC 32.4 RDW 18.0 H Plt Count 69 L Seg Neutrophils % Not Reportable Carbonic Acid 1.35 HCO3/H2CO3 Ratio 23:1 ABG pH 7.47 H ABG pCO2 44.8 ABG pO2 72.4 L ABG HCO3 32.0 H ABG O2 Saturation 95.3 ABG Base Excess 7.6 FiO2 4L Sodium 122.6 L Potassium 3.5 L Chloride 77 L Carbon Dioxide 31 H Anion Gap 15 BUN 34 H Creatinine 2.64 H Est GFR ( Amer) 22 L Glucose 103 Calcium 8.1 L Magnesium Total Bilirubin 0.9 AST 11 L Alkaline Phosphatase 73 Total Protein 5.0 L Albumin 2.9 L Urine Osmolality Fluid Type Fluid Source Fluid Color Fluid Appearance Fluid Viscosity Fluid WBC Fluid RBC 06/11/19 06/11/19 06/11/19 05:50 12:11 14:45 WBC RBC Hgb Hct MCV MCH MCHC RDW Plt Count Seg Neutrophils % Carbonic Acid 1.44 H HCO3/H2CO3 Ratio 22:1 ABG pH 7.45 ABG pCO2 47.8 H ABG pO2 93.3 ABG HCO3 32.4 H ABG O2 Saturation 97.3 ABG Base Excess 7.5 FiO2 45% Sodium Potassium Chloride Carbon Dioxide Anion Gap BUN Creatinine Est GFR ( Amer) Glucose Calcium Magnesium Total Bilirubin AST Alkaline Phosphatase Total Protein Albumin Urine Osmolality 122 L Fluid Type PLEURAL Fluid Source LUNG Fluid Color YELLOW Fluid Appearance CLOUDY Fluid Viscosity SLIGHTLY VISCOUS Fluid WBC 2156 Fluid RBC 4833 06/08/19 11:15 Pleural Fluid Gram Stain - Final 06/08/19 11:15 Pleural Fluid Body Fluid Culture - Final NO AEROBIC OR ANAEROBIC ORGANISMS RECOVERED 06/05/19 06/05/19 06/08/19 21:52 22:51 01:10 Creatine Kinase Cancelled CK-MB (CK-2) Troponin I Cancelled < 0.012 NT-Pro-B Natriuret Pep Cancelled [id number] H 06/08/19 06/08/19 01:10 02:00 Creatine Kinase < 20 L CK-MB (CK-2) 1.21 Troponin I 0.032 NT-Pro-B Natriuret Pep [id number] H Impressions: KUB X-Ray 06/06/19 00:00 IMPRESSION: Nasogastric tube in the gastric body Femoral line in place on the right Abdomen/Pelvis CT 06/10/19 00:00 IMPRESSION: 1. Extensive lung findings as above. When compared to 06/06/2019, right pleural effusion is slightly progressive and there is a new small left pleural effusion. Consolidation in the right lung has improved. Progressive interstitial infiltrate in the right upper lobe with new patchy interstitial infiltrate in the left upper lobe. 2. Other findings as above, stable. IMPRESSION: 1. Limited abdominal valuation given noncontrast technique, motion and external source artifacts as described. 2. Ascites. No overt bowel or urinary obstruction. 3. Generalized soft tissue edema/anasarca. Chest CT 06/10/19 00:00 IMPRESSION: 1. Extensive lung findings as above. When compared to 06/06/2019, right pleural effusion is slightly progressive and there is a new small left pleural effusion. Consolidation in the right lung has improved. Progressive interstitial infiltrate in the right upper lobe with new patchy interstitial infiltrate in the left upper lobe. 2. Other findings as above, stable. IMPRESSION: 1. Limited abdominal valuation given noncontrast technique, motion and external source artifacts as described. 2. Ascites. No overt bowel or urinary obstruction. 3. Generalized soft tissue edema/anasarca. Head CT 06/10/19 00:00 IMPRESSION: NO ACUTE INTRACRANIAL FINDINGS. EVIDENCE OF ACUTE STROKE: NO. Thoracentesis Ultrasound 06/11/19 00:00 IMPRESSION: SUCCESSFUL THORACENTESIS USING ULTRASOUND GUIDANCE. Chest X-Ray 06/11/19 12:38 IMPRESSION: NO SIGNIFICANT INTERVAL CHANGE. NO PNEUMOTHORAX FOLLOWING PLACEMENT OF PIGTAIL PLEURAL DRAINAGE CATHETER ON THE RIGHT. Assessment & Plan - Diagnosis (1) Acute renal failure Qualifiers: Acute renal failure type: unspecified Qualified Code(s): N17.9 - Acute kidney failure, unspecified Is this a current diagnosis for this admission?: Yes Plan: Patient has KATHLEEN/ATN from acute E. coli septic shock. Nonoliguric. Patient slowly making progress. Creatinine stable for the last 3 days. She is currently on antibiotics and hypotonic solutions. However she is got generalized anasarca given her overall comorbidities and septic shock with low albumin. Discontinue hypotonic solutions and start gentle normal saline. Start low-dose of diuretics concurrently. No indications for renal replacements. We will continue to monitor. (2) Acute hyponatremia Plan: Multifactorial. Initiate work-up. Convert hypotonic solutions to isotonic solutions for the moment. (3) Acute respiratory failure Qualifiers: Respiratory failure complication: unspecified whether with hypoxia or hyper capnia Qualified Code(s): J96.00 - Acute respiratory failure, unspecified whether with hypoxia or hypercapnia Is this a current diagnosis for this admission?: Yes Plan: Was intubated recurrent and currently extubated but on BiPAP. As per satellite tv technician. (4) HCAP (healthcare-associated pneumonia) Is this a current diagnosis for this admission?: Yes Plan: On IV antibiotics. Please dose medications to GFR of less than 25 cc/min. (5) Lung mass Is this a current diagnosis for this admission?: Yes Plan: Being watched by satellite tv technician and heme-onc. (6) Sacral decubitus ulcer Qualifiers: Pressure injury stage: unstageable Qualified Code(s): L89.150 - Pressure ulcer of sacral region, unstageable Is this a current diagnosis for this admission?: Yes (7) Septic shock Is this a current diagnosis for this admission?: Yes Plan: Secondary to E. coli. Patient looks like she was in DIC with altered coagulation studies and platelets. Making slow but steady progress (8) Thrombocytopenia Is this a current diagnosis for this admission?: Yes (9) Altered mental status Qualifiers: Altered mental status type: transient alteration of awareness Qualified Code(s): R40.4 - Transient alteration of awareness Plan: Given a septic shock and pneumonia with comorbidities. (10) Anemia Qualifiers: Anemia type: iron deficiency Iron deficiency anemia type: chronic blood loss Qualified Code(s): D50.0 - Iron deficiency anemia secondary to blood loss (chronic) Is this a current diagnosis for this admission?: Yes Plan: Currently stable and being monitored by satellite tv technician and heme-onc. (11) CHRONC PAIN Is this a current diagnosis for this admission?: Yes (12) COPD (chronic obstructive pulmonary disease) Is this a current diagnosis for this admission?: Yes Plan: Status quo.
[2019-06-11] MEDS: ALBUMIN HUMAN 12.5 GM/50 ML RTUINJ IV SCH ×4 (16:15→19:42)
[2019-06-11] MEDS: FUROSEMIDE INJ/PF 20 MG/2 ML SDV IV SCH ×2 (16:15→22:12)
[2019-06-11] MEDS: NORMAL SALINE 1000 ML 1,000 ML IV PRN (16:36)
[2019-06-11] MEDS: DEXTROSE 50%-WATER 25 GM/50 ML DISP.SYRIN IV PRN ×2 (17:48→23:49)
--- NOTE | 2019-06-11 21:29 | RADIOLOGY REPORT (SQ) ---
EXAM DESCRIPTION: RadLex: CT HEAD WITHOUT IV CONTRAST CLINICAL HISTORY: 63 years Female; abnormoral pupil assessment TECHNIQUE: Noncontrast CT head. All CT scans at this facility use dose modulation, iterative reconstruction, and/or weight based dosing when appropriate to reduce radiation dose to as low as reasonably achievable. COMPARISON: CT 06/10/2019 FINDINGS: Parisi matter, white matter, ventricles, and cisterns are within normal limits. No acute hemorrhage or mass effect. No retro-orbital mass or edema. Extraocular muscles are symmetric. Visualized portions of paranasal sinuses and mastoids are clear. Visualized portions of the calvarium are within normal limits. IMPRESSION: 1. No acute intracranial findings.
--- NOTE | 2019-06-11 21:40 | Progress Note ---
Provider Note Provider Note: In to assess pt after RN reported findings of un-equal pupils on her assessment. Pt resting in bed awake and alert on BiPAP. Lights turned off and flashlight used to assess pupils. Left side noted to be 5-7 and nonreactive, right side is pinpoint and sluggish. No noted abnormalities in facial symmetry or tongue tiera ation when BiPAP removed for quick assessment. Pt able to perform active ROM in bilateral shoulders, pain in b/l elbows with movement, show dog trainer strength in right hand 3/5 left hand 1/5. Unable to perform straight leg raise bilaterally, strength in b/l feet was 2/5 to push/pull. No reported sensory deficits on assessment. Stat head CT ordered.
--- NOTE | 2019-06-11 23:21 | XCELERA REPORT ---
[address] [address] Transthoracic Echocardiogram Report Name: KYLAH DUNHAM Age: 63 yrs Gender: Female : 1955 Patient Status: Inpatient Patient Location: ICU^609^A Study Date: 06/07/2019 01:34 PM Height: 66 in Weight: 144 lb BSA: 1.7 m2 Procedure: A complete two-dimensional transthoracic echocardiogram was performed (2D, M-mode, spectral and color flow Doppler). The study was technically adequate with some images being suboptimal in quality. Reason For Study: hypotension Ordering Physician: JIM AGUILERA Performed By: Paz Yao Interpretation Summary The left ventricular ejection fraction is normal. Doppler measurements suggest pseudonormalized left ventricular relaxation, which is associated with grade II/IV or mild to moderate diastolic dysfunction There is mild concentric left ventricular hypertrophy. The left ventricle is grossly normal size. Wall motion cannot be accurately commented on, but no definite regional wall motion abnormalities noted. The right ventricle is mildly dilated. The right ventricular systolic function is normal. The right atrium is mildly dilated. The left atrium is mildly dilated. There is a trace amount of mitral regurgitation There is no mitral valve stenosis. No aortic regurgitation is present. There is no aortic valve stenosis There is a mild to moderate amount of tricuspid regurgitation There is moderate pulmonary hypertension by echo Best estimated right ventricular systolic pressure is elevated at 40-50mmHg. The aortic root is not well visualized but is probably normal size. The inferior vena cava appeared normal and decreased < 50% with respiration (RAP 10-15 mmHg) Minimal pericardial effusion. MMode/2D Measurements & Calculations RVDd: 3.6 cm LVIDd: 4.2 cm FS: 31.9 % Ao root diam: 2.8 cm IVSd: 0.87 cm LVIDs: 2.9 cm EDV(Teich): 80.4 ml Ao root area: 6.3 cm2 LVPWd: 0.94 cm ESV(Teich): 31.8 ml EF(Teich): 60.4 % Doppler Measurements & Calculations MV E max stef: MV dec slope: Ao V2 max: LV V1 max P.9 cm/sec 693.2 cm/sec2 140.0 cm/sec 2.6 mmHg MV A max stef: MV dec time: 0.12 secAo max PG: LV V1 max: 64.5 cm/sec 7.8 mmHg 80.1 cm/sec MV E/A: 1.2 PA V2 max: TR max stef: 72.1 cm/sec 299.2 cm/sec PA max P.1 mmHg TR max P.0 mmHg Left Ventricle The left ventricle is grossly normal size. There is mild concentric left ventricular hypertrophy. The left ventricular ejection fraction is normal. Doppler measurements suggest pseudonormalized left ventricular relaxation, which is associated with grade II/IV or mild to moderate diastolic dysfunction. Wall motion cannot be accurately commented on, but no definite regional wall motion abnormalities noted. Right Ventricle The right ventricle is mildly dilated. The right ventricle appears to be hypertrophied. The right ventricular systolic function is normal. Atria The right atrium is mildly dilated. The left atrium is mildly dilated. Interarterial septum not well visualized and not well dopplered. Cannot comment on ASD/PFO presence. Mitral Valve The mitral valve leaflets are sclerotic, but show no functional abnormalities. There is no mitral valve stenosis. There is a trace amount of mitral regurgitation. Aortic Valve The aortic valve opens well. There is no aortic valve stenosis. No aortic regurgitation is present. Tricuspid Valve The tricuspid valve is not well visualized, but is grossly normal. There is no tricuspid stenosis. There is a mild to moderate amount of tricuspid regurgitation. There is moderate pulmonary hypertension by echo. Best estimated right ventricular systolic pressure is elevated at 40-50mmHg. Pulmonic Valve The pulmonic valve is not well visualized. Great Vessels The aortic root is not well visualized but is probably normal size. The inferior vena cava appeared normal and decreased < 50% with respiration (RAP 10-15 mmHg). Effusions Minimal pericardial effusion. : JIM AGUILERA Shyamal
[2019-06-12] MEDS: DEXTROSE 5%-WATER 250 ML with PHENYLEPHRINE HCL 40 MG IV PRN ×4 (01:17→19:45)
[2019-06-12] MEDS: DEXTROSE 5%-WATER 500 ML with AMIODARONE HCL 900 MG IV PRN ×2 (01:59)
[2019-06-12] MEDS: DEXTROSE 50%-WATER 25 GM/50 ML DISP.SYRIN IV PRN ×6 (02:25→16:21)
[2019-06-12] MEDS: ACETAMINOPHEN 325 MG TABLET PO PRN ×2 (03:00→12:16)
[2019-06-12] MEDS: IPRATROPIUM/ALBUTEROL 0.5-2.5 MG/3 ML AMPUL NEB SCH ×5 (04:05→21:05)
[2019-06-12 04:20] LABS: HEMATOCRIT 22.3 % (36.0-47.0); MEAN CORPUSCULAR HEMOGLOBIN 26.7 pg (27.0-33.4); MEAN CORPUSCULAR HGB CONC 32.1 g/dL (32.0-36.0); MEAN CORPUSCULAR VOLUME 83 fl (80-97); RED BLOOD COUNT 2.68 10^6/uL (3.72-5.28); RED CELL DISTRIBUTION WIDTH 18.1 % (11.5-14.0); WHITE BLOOD COUNT 21.7 10^3/uL (4.0-10.5)
[2019-06-12 04:54] LABS: ALBUMIN 2.4 g/dL (3.5-5.0); ALKALINE PHOSPHATASE 55 U/L (38-126); ANION GAP 10 (5-19); ASPARTATE AMINO TRANSFERASE 11 U/L (14-36); BILIRUBIN,DIRECT 0.5 mg/dL (0.0-0.4); BILIRUBIN,TOTAL 0.9 mg/dL (0.2-1.3); BLOOD UREA NITROGEN 36 mg/dL (7-20); CALCIUM 7.9 mg/dL (8.4-10.2); CARBON DIOXIDE 31 mmol/L (22-30); CHLORIDE 83 mmol/L (98-107); TOTAL PROTEIN 4.2 g/dL (6.3-8.2)
[2019-06-12 05:19] LABS: GLUCOSE 36 mg/dL (75-110); PLATELET COUNT 46 10^3/uL (150-450)
[2019-06-12 05:20] LABS: POTASSIUM 2.8 mmol/L (3.6-5.0)
[2019-06-12 05:21] LABS: HEMOGLOBIN 7.2 g/dL (12.0-15.5)
[2019-06-12 05:25] LABS: ABSOLUTE MONOCYTES # (MANUAL) 0.4 10^3/uL (0.1-1.4); BAND NEUTROPHILS % (MANUAL) 1 % (3-5); BASOPHILS % (MANUAL) 0 % (0-2); EOSINOPHILS % (MANUAL) 0 % (0-6); LYMPHOCYTES % (MANUAL) 0 % (13-45); MONOCYTES % (MANUAL) 2 % (3-13); SEGMENTED NEUTROPHILS % (MAN) 97 % (42-78); TOTAL CELLS COUNTED 100
[2019-06-12 05:26] LABS: PLATELET COMMENT DECREASED
[2019-06-12 05:29] LABS: ANISOCYTOSIS 1+; HYPOCHROMASIA SLIGHT
[2019-06-12 05:30] LABS: OVALOCYTES SLIGHT
[2019-06-12] MEDS: NORMAL SALINE 1000 ML 1,000 ML IV PRN (06:01)
[2019-06-12] MEDS: POTASSI CL 20 MEQ/50 ML RIDER 20 MEQ/50 ML RTUPB IV SCH ×3 (06:35→13:06)
--- NOTE | 2019-06-12 06:39 | Progress Note ---
Provider Note Provider Note: RN reported that pt POC was ~40, pt was given glucose per protocol, on repeat POC her blood sugar was stable. POC glucose testing was changed to Q2hr from Q6hr. Mentation was noted to be effected when BG was low as pt required sternal rub to be aroused but maintained her respirations and was noted to cough intermittently while on the BiPAP. She was Subsequently, on each follow up POC, BG was <70 and pt required total of 6 amps of glucose throughout the night. She was started on enteral feeds to avoid further fluid overload and further decrease in serum Na. When reviewing labs on [facility], only reassessment of bedside POC were showing up in the chart. A call was made to the lab department who stated the IT department wound need to be called to discuss this discrepancy. RN will add a nursing a nursing note with the times and values until this is corrected
--- NOTE | 2019-06-12 08:17 | PDOC PROGRESS REPORT ---
Subjective Progress Note for:: 06/12/19 Subjective:: No acute events overnight, thoracentesis done yesterday, results pending Reason For Visit: PNA,SEPTIC SHOCK Physical Exam Vital Signs: Temp Pulse Resp BP Pulse Ox 97.5 F 93 19 90/58 L 100 06/11/19 16:00 06/12/19 08:05 06/12/19 08:05 06/12/19 06:04 06/12/19 08:05 Intake & Output 06/11/19 06/12/19 06/13/19 06:59 06:59 06:59 Intake Total 3784 3208 100 Output Total 672 2615 Balance 3112 593 100 Weight 86.9 kg 86.4 kg General appearance: PRESENT: no acute distress, well-developed, well-nourished Head exam: PRESENT: atraumatic, normocephalic Eye exam: PRESENT: conjunctiva pink, EOMI, PERRLA. ABSENT: scleral icterus Ear exam: PRESENT: normal external ear exam Mouth exam: PRESENT: moist, tongue midline Neck exam: ABSENT: carotid bruit, JVD, lymphadenopathy, thyromegaly Respiratory exam: PRESENT: clear to auscultation astrid. ABSENT: rales, rhonchi, wheezes Cardiovascular exam: PRESENT: RRR. ABSENT: diastolic murmur, rubs, systolic murmur Pulses: PRESENT: normal dorsalis pedis pul Vascular exam: PRESENT: normal capillary refill GI/Abdominal exam: PRESENT: normal bowel sounds, soft. ABSENT: distended, guarding, mass, organolmegaly, rebound, tenderness Rectal exam: PRESENT: deferred Extremities exam: PRESENT: full ROM. ABSENT: calf tenderness, clubbing, pedal edema Neurological exam: PRESENT: alert, awake, oriented to person, oriented to place, oriented to time, oriented to situation, CN II-XII grossly intact. ABSENT: motor sensory deficit Psychiatric exam: PRESENT: appropriate affect, normal mood. ABSENT: homicidal ideation, suicidal ideation Skin exam: PRESENT: dry, intact, warm. ABSENT: cyanosis, rash Results Laboratory Results: 06/12/19 04:01 06/12/19 04:01 06/11/19 06/11/19 06/11/19 12:11 14:45 14:45 WBC RBC Hgb Hct MCV MCH MCHC RDW Plt Count Seg Neutrophils % Sodium Potassium Chloride Carbon Dioxide Anion Gap BUN Creatinine Est GFR ( Amer) Glucose Serum Osmolality 257 L Calcium Total Bilirubin AST Alkaline Phosphatase Total Protein Albumin Urine Osmolality 122 L Fluid Type PLEURAL Fluid Source LUNG Fluid Color YELLOW Fluid Appearance CLOUDY Fluid Viscosity SLIGHTLY VISCOUS Fluid WBC 2156 Fluid RBC 4833 06/12/19 06/12/19 04:01 04:01 WBC 21.7 H RBC 2.68 L Hgb 7.2 L Hct 22.3 L MCV 83 MCH 26.7 L MCHC 32.1 RDW 18.1 H Plt Count 46 L Seg Neutrophils % Not Reportable Sodium 124.4 L Potassium 2.8 L* Chloride 83 L Carbon Dioxide 31 H Anion Gap 10 BUN 36 H Creatinine 2.31 H Est GFR ( Amer) 26 L Glucose 36 L* Serum Osmolality Calcium 7.9 L Total Bilirubin 0.9 AST 11 L Alkaline Phosphatase 55 Total Protein 4.2 L Albumin 2.4 L Urine Osmolality Fluid Type Fluid Source Fluid Color Fluid Appearance Fluid Viscosity Fluid WBC Fluid RBC 06/08/19 11:15 Pleural Fluid Gram Stain - Final 06/08/19 11:15 Pleural Fluid Body Fluid Culture - Final NO AEROBIC OR ANAEROBIC ORGANISMS RECOVERED 06/05/19 06/05/19 06/08/19 21:52 22:51 01:10 Creatine Kinase Cancelled CK-MB (CK-2) Troponin I Cancelled < 0.012 NT-Pro-B Natriuret Pep Cancelled [id number] H 06/08/19 06/08/19 01:10 02:00 Creatine Kinase < 20 L CK-MB (CK-2) 1.21 Troponin I 0.032 NT-Pro-B Natriuret Pep [id number] H Impressions: KUB X-Ray 06/06/19 00:00 IMPRESSION: Nasogastric tube in the gastric body Femoral line in place on the right Abdomen/Pelvis CT 06/10/19 00:00 IMPRESSION: 1. Extensive lung findings as above. When compared to 06/06/2019, right pleural effusion is slightly progressive and there is a new small left pleural effusion. Consolidation in the right lung has improved. Progressive interstitial infiltrate in the right upper lobe with new patchy interstitial infiltrate in the left upper lobe. 2. Other findings as above, stable. IMPRESSION: 1. Limited abdominal valuation given noncontrast technique, motion and external source artifacts as described. 2. Ascites. No overt bowel or urinary obstruction. 3. Generalized soft tissue edema/anasarca. Chest CT 06/10/19 00:00 IMPRESSION: 1. Extensive lung findings as above. When compared to 06/06/2019, right pleural effusion is slightly progressive and there is a new small left pleural effusion. Consolidation in the right lung has improved. Progressive interstitial infiltrate in the right upper lobe with new patchy interstitial infiltrate in the left upper lobe. 2. Other findings as above, stable. IMPRESSION: 1. Limited abdominal valuation given noncontrast technique, motion and external source artifacts as described. 2. Ascites. No overt bowel or urinary obstruction. 3. Generalized soft tissue edema/anasarca. Head CT 06/11/19 00:00 IMPRESSION: 1. No acute intracranial findings. Thoracentesis Ultrasound 06/11/19 00:00 IMPRESSION: SUCCESSFUL THORACENTESIS USING ULTRASOUND GUIDANCE. Assessment & Plan - Diagnosis (1) Lung mass Is this a current diagnosis for this admission?: Yes Plan: Possible malignancy, awaiting cytology (2) Thrombocytopenia Is this a current diagnosis for this admission?: Yes Plan: Related to DIC, continue to monitor - Time Time Spent with patient: 15-24 minutes
--- NOTE | 2019-06-12 08:22 | RADIOLOGY REPORT (SQ) ---
EXAM DESCRIPTION: CHEST SINGLE VIEW COMPLETED DATE/TIME: 06/12/2019 7:02 am REASON FOR STUDY: Post Thoracentesis and Chest Tube Placement COMPARISON: 06/11/2019 EXAM PARAMETERS: NUMBER OF VIEWS: One view. TECHNIQUE: Single frontal radiographic view of the chest acquired. RADIATION DOSE: NA LIMITATIONS: None. FINDINGS: LUNGS AND PLEURA: Stable small bore right basilar chest tube with decreased size of the ri ght-sided pleural effusion. Persistent right upper lobe and middle lobe patchy airspace disease, mil dly improved from prior. Unchanged ill-defined left upper lobe opacities. MEDIASTINUM AND HILAR STRUCTURES: Stable. HEART AND VASCULAR STRUCTURES: Enlarged, stable. BONES: No acute findings. HARDWARE: Left internal jugular central venous catheter tip overlies proximal SVC. Enteric tube tip below diaphragm but excluded by collimation. Unchanged small bore right basilar chest tube. OTHER: No other significant finding. IMPRESSION: Unchanged small bore right basilar chest tube with decreased, now trace right pleural ef fusion. Persistent patchy right mid lung left upper lobe airspace disease, mildly improved from prior. TECHNICAL DOCUMENTATION: JOB ID: [id number] [employer]- All Rights Reserved Reading location - IP/workstation name: [email or web address]
[2019-06-12] MEDS ORDERED: NORMAL SALINE 250 ML IV PRN ×2 (08:32)
[2019-06-12] MEDS ORDERED: VANCOMYCIN HCL 500 MG in DEXTROSE 5%-WATER 100 ML IV SCH (10:00)
[2019-06-12] MEDS: MORPHINE SULFATE 10 MG/ML INJ IV PRN ×3 (10:31→21:45)
[2019-06-12] MEDS: PANTOPRAZOLE SODIUM 40 MG VIAL IV SCH ×2 (10:32→21:43)
[2019-06-12] MEDS: FUROSEMIDE INJ/PF 20 MG/2 ML SDV IV SCH ×2 (10:32→21:42)
[2019-06-12] MEDS: FLUCONAZOLE 200 MG/NS RTU 200 MG/100 ML RTUPB IV SCH (10:33)
--- NOTE | 2019-06-12 11:16 | PDOC PROGRESS REPORT ---
Subjective Progress Note for:: 06/12/19 Subjective:: unchanged Reason For Visit: PNA,SEPTIC SHOCK Physical Exam Vital Signs: Temp Pulse Resp BP Pulse Ox 97.9 F 84 23 H 119/70 97 06/12/19 08:00 06/12/19 10:00 06/12/19 10:00 06/12/19 10:00 06/12/19 10:00 Intake & Output 06/11/19 06/12/19 06/13/19 06:59 06:59 06:59 Intake Total 3784 3208 150 Output Total 672 2615 230 Balance 3112 593 -80 Weight 86.9 kg 86.4 kg General appearance: PRESENT: no acute distress, disheveled, well-developed Head exam: PRESENT: atraumatic, normocephalic Eye exam: PRESENT: conjunctiva pale, EOMI. ABSENT: nystagmus, scleral icterus Mouth exam: PRESENT: dry mucosa, neck supple, tongue midline Neck exam: ABSENT: carotid bruit, full ROM, JVD, lymphadenopathy, meningismus, tenderness, thyromegaly, tracheal deviation, tracheostomy, other Respiratory exam: PRESENT: crackles, decreased breath sounds, prolonged expiratory phas, rhonchi, unlabored. ABSENT: retraction, stridor, tachypnea Cardiovascular exam: PRESENT: RRR, +S1, +S2 Pulses: PRESENT: normal radial pulses GI/Abdominal exam: PRESENT: soft. ABSENT: guarding, mass, rebound, tenderness Extremities exam: PRESENT: pedal edema. ABSENT: calf tenderness, clubbing, joint swelling, tenderness Musculoskeletal exam: ABSENT: ambulatory, deformity, dislocation Neurological exam: PRESENT: altered Psychiatric exam: PRESENT: flat affect Skin exam: PRESENT: dry, warm Results Laboratory Results: 06/12/19 04:01 06/12/19 04:01 06/10/19 06/11/19 06/11/19 06:53 12:11 14:45 WBC RBC Hgb Hct MCV MCH MCHC RDW Plt Count Seg Neutrophils % Sodium Potassium Chloride Carbon Dioxide Anion Gap BUN Creatinine Est GFR ( Amer) Glucose Serum Osmolality 257 L Calcium Magnesium Total Bilirubin AST Alkaline Phosphatase Total Protein Albumin Urine Osmolality Fluid Type PLEURAL Fluid Source LUNG Fluid Color YELLOW Fluid Appearance CLOUDY Fluid Viscosity SLIGHTLY VISCOUS Fluid WBC 2156 Fluid RBC 4833 Blood Type A POSITIVE Antibody Screen NEGATIVE 06/11/19 06/12/19 06/12/19 14:45 04:01 04:01 WBC 21.7 H RBC 2.68 L Hgb 7.2 L Hct 22.3 L MCV 83 MCH 26.7 L MCHC 32.1 RDW 18.1 H Plt Count 46 L Seg Neutrophils % Not Reportable Sodium 124.4 L Potassium 2.8 L* Chloride 83 L Carbon Dioxide 31 H Anion Gap 10 BUN 36 H Creatinine 2.31 H Est GFR ( Amer) 26 L Glucose 36 L* Serum Osmolality Calcium 7.9 L Magnesium Total Bilirubin 0.9 AST 11 L Alkaline Phosphatase 55 Total Protein 4.2 L Albumin 2.4 L Urine Osmolality 122 L Fluid Type Fluid Source Fluid Color Fluid Appearance Fluid Viscosity Fluid WBC Fluid RBC Blood Type Antibody Screen 06/12/19 04:01 WBC RBC Hgb Hct MCV MCH MCHC RDW Plt Count Seg Neutrophils % Sodium Potassium Chloride Carbon Dioxide Anion Gap BUN Creatinine Est GFR ( Amer) Glucose Serum Osmolality Calcium Magnesium 1.7 Total Bilirubin AST Alkaline Phosphatase Total Protein Albumin Urine Osmolality Fluid Type Fluid Source Fluid Color Fluid Appearance Fluid Viscosity Fluid WBC Fluid RBC Blood Type Antibody Screen 06/08/19 11:15 Pleural Fluid Gram Stain - Final 06/08/19 11:15 Pleural Fluid Body Fluid Culture - Final NO AEROBIC OR ANAEROBIC ORGANISMS RECOVERED 06/05/19 06/05/19 06/08/19 21:52 22:51 01:10 Creatine Kinase Cancelled CK-MB (CK-2) Troponin I Cancelled < 0.012 NT-Pro-B Natriuret Pep Cancelled 51371 H 06/08/19 06/08/19 01:10 02:00 Creatine Kinase < 20 L CK-MB (CK-2) 1.21 Troponin I 0.032 NT-Pro-B Natriuret Pep [id number] H Impressions: KUB X-Ray 06/06/19 00:00 IMPRESSION: Nasogastric tube in the gastric body Femoral line in place on the right Abdomen/Pelvis CT 06/10/19 00:00 IMPRESSION: 1. Extensive lung findings as above. When compared to 06/06/2019, right pleural effusion is slightly progressive and there is a new small left pleural effusion. Consolidation in the right lung has improved. Progressive interstitial infiltrate in the right upper lobe with new patchy interstitial infiltrate in the left upper lobe. 2. Other findings as above, stable. IMPRESSION: 1. Limited abdominal valuation given noncontrast technique, motion and external source artifacts as described. 2. Ascites. No overt bowel or urinary obstruction. 3. Generalized soft tissue edema/anasarca. Chest CT 06/10/19 00:00 IMPRESSION: 1. Extensive lung findings as above. When compared to 06/06/2019, right pleural effusion is slightly progressive and there is a new small left pleural effusion. Consolidation in the right lung has improved. Progressive interstitial infiltrate in the right upper lobe with new patchy interstitial infiltrate in the left upper lobe. 2. Other findings as above, stable. IMPRESSION: 1. Limited abdominal valuation given noncontrast technique, motion and external source artifacts as described. 2. Ascites. No overt bowel or urinary obstruction. 3. Generalized soft tissue edema/anasarca. Head CT 06/11/19 00:00 IMPRESSION: 1. No acute intracranial findings. Thoracentesis Ultrasound 06/11/19 00:00 IMPRESSION: SUCCESSFUL THORACENTESIS USING ULTRASOUND GUIDANCE. Chest X-Ray 06/12/19 06:00 IMPRESSION: Unchanged small bore right basilar chest tube with decreased, now trace right pleural effusion. Persistent patchy right mid lung left upper lobe airspace disease, mildly improved from prior. Assessment & Plan - Diagnosis (1) Acute respiratory failure Qualifiers: Respiratory failure complication: unspecified whether with hypoxia or hypercapnia Qualified Code(s): J96.00 - Acute respiratory failure, unspecified whether with hypoxia or hypercapnia Is this a current diagnosis for this admission?: Yes Plan: stable on bipap (2) COPD (chronic obstructive pulmonary disease) Qualifiers: COPD type: emphysema Emphysema type: centrilobular Qualified Code(s): J43.2 - Centrilobular emphysema Is this a current diagnosis for this admission?: Yes Plan: continue bronchodialators (3) HCAP (healthcare-associated pneumonia) Is this a current diagnosis for this admission?: Yes Plan: wbc decreased;RUL .infiltrate appears less dense;R chest tube cytology pending (4) Lung mass Is this a current diagnosis for this admission?: Yes Plan: continued resolution w/o mass will follow - Time Time Spent with patient: 35 or more minutes Total Critical Time (Minutes): 40 Level of Care: ICU
[2019-06-12] MEDS ORDERED: DEXTROSE 5%-NORMAL SALINE 1,000 ML IV PRN (11:22)
[2019-06-12] MEDS: DEXTROSE 10%-WATER 1,000 ML IV PRN (11:30)
[2019-06-12 11:31] LABS: ANION GAP 12 (5-19); BLOOD UREA NITROGEN 38 mg/dL (7-20); CALCIUM 8.1 mg/dL (8.4-10.2); CARBON DIOXIDE 30 mmol/L (22-30); CHLORIDE 82 mmol/L (98-107)
[2019-06-12 11:34] LABS: VANCOMYCIN,TROUGH 26.7 ug/mL (5.0-20.0)
[2019-06-12 11:42] LABS: GLUCOSE 45 mg/dL (75-110)
[2019-06-12 11:52] LABS: POTASSIUM 2.8 mmol/L (3.6-5.0)
--- NOTE | 2019-06-12 12:21 | PDOC CRITICAL CARE PROG REPORT ---
General Date:: 06/12/19 - Critical Care Progress Note Resuscitation Status: Full Code Events in the past 12 to 24 Hours:: Remained on bipap overnight. Reason for ICU Addmission:: PNA, acute respiratory failure, septic shock Physical Exam Vital Signs: Temp Pulse Resp BP Pulse Ox 97.3 F 84 22 H 113/70 96 06/12/19 12:00 06/12/19 12:00 06/12/19 12:00 06/12/19 12:00 06/12/19 12:00 Intake & Output 06/11/19 06/12/19 06/13/19 06:59 06:59 06:59 Intake Total 3784 3208 438 Output Total 672 2615 230 Balance 3112 593 208 Weight 86.9 kg 86.4 kg Weight/Height Weight 86.4 kg Height 5 ft 6 in General appearance: PRESENT: no acute distress, well-developed, well-nourished, other - awake, alert, communicative Head exam: PRESENT: atraumatic, normocephalic Respiratory exam: PRESENT: decreased breath sounds, unlabored Cardiovascular exam: PRESENT: irregular rhythm GI/Abdominal exam: PRESENT: soft Gentrourinary exam: PRESENT: indwelling catheter Extremities exam: PRESENT: +1 edema Neurological exam: PRESENT: alert, awake Psychiatric exam: PRESENT: appropriate affect Laboratory/Radiographs Laboratory Results: 06/12/19 04:01 06/12/19 10:50 06/10/19 06/11/19 06/11/19 06:53 12:11 14:45 WBC RBC Hgb Hct MCV MCH MCHC RDW Plt Count Seg Neutrophils % Sodium Potassium Chloride Carbon Dioxide Anion Gap BUN Creatinine Est GFR ( Amer) Glucose Serum Osmolality 257 L Calcium Magnesium Total Bilirubin AST Alkaline Phosphatase Total Protein Albumin Urine Osmolality Fluid Type PLEURAL Fluid Source LUNG Fluid Color YELLOW Fluid Appearance CLOUDY Fluid Viscosity SLIGHTLY VISCOUS Fluid WBC 2156 Fluid RBC 4833 Blood Type A POSITIVE Antibody Screen NEGATIVE 06/11/19 06/12/19 06/12/19 14:45 04:01 04:01 WBC 21.7 H RBC 2.68 L Hgb 7.2 L Hct 22.3 L MCV 83 MCH 26.7 L MCHC 32.1 RDW 18.1 H Plt Count 46 L Seg Neutrophils % Not Reportable Sodium 124.4 L Potassium 2.8 L* Chloride 83 L Carbon Dioxide 31 H Anion Gap 10 BUN 36 H Creatinine 2.31 H Est GFR ( Amer) 26 L Glucose 36 L* Serum Osmolality Calcium 7.9 L Magnesium Total Bilirubin 0.9 AST 11 L Alkaline Phosphatase 55 Total Protein 4.2 L Albumin 2.4 L Urine Osmolality 122 L Fluid Type Fluid Source Fluid Color Fluid Appearance Fluid Viscosity Fluid WBC Fluid RBC Blood Type Antibody Screen 06/12/19 06/12/19 04:01 10:50 WBC RBC Hgb Hct MCV MCH MCHC RDW Plt Count Seg Neutrophils % Sodium 123.5 L Potassium 2.8 L* Chloride 82 L Carbon Dioxide 30 Anion Gap 12 BUN 38 H Creatinine 2.21 H Est GFR ( Amer) 27 L Glucose 45 L Serum Osmolality Calcium 8.1 L Magnesium 1.7 Total Bilirubin AST Alkaline Phosphatase Total Protein Albumin Urine Osmolality Fluid Type Fluid Source Fluid Color Fluid Appearance Fluid Viscosity Fluid WBC Fluid RBC Blood Type Antibody Screen 06/08/19 11:15 Pleural Fluid Gram Stain - Final 06/08/19 11:15 Pleural Fluid Body Fluid Culture - Final NO AEROBIC OR ANAEROBIC ORGANISMS RECOVERED 06/05/19 06/05/19 06/08/19 21:52 22:51 01:10 Creatine Kinase Cancelled CK-MB (CK-2) Troponin I Cancelled < 0.012 NT-Pro-B Natriuret Pep Cancelled 54714 H 06/08/19 06/08/19 01:10 02:00 Creatine Kinase < 20 L CK-MB (CK-2) 1.21 Troponin I 0.032 NT-Pro-B Natriuret Pep [id number] H Impressions: KUB X-Ray 06/06/19 00:00 IMPRESSION: Nasogastric tube in the gastric body Femoral line in place on the right Abdomen/Pelvis CT 06/10/19 00:00 IMPRESSION: 1. Extensive lung findings as above. When compared to 06/06/2019, right pleural effusion is slightly progressive and there is a new small left pleural effusion. Consolidation in the right lung has improved. Progressive interstitial infiltrate in the right upper lobe with new patchy interstitial infiltrate in the left upper lobe. 2. Other findings as above, stable. IMPRESSION: 1. Limited abdominal valuation given noncontrast technique, motion and external source artifacts as described. 2. Ascites. No overt bowel or urinary obstruction. 3. Generalized soft tissue edema/anasarca. Chest CT 06/10/19 00:00 IMPRESSION: 1. Extensive lung findings as above. When compared to 06/06/2019, right pleural effusion is slightly progressive and there is a new small left pleural effusion. Consolidation in the right lung has improved. Progressive interstitial infiltrate in the right upper lobe with new patchy interstitial infiltrate in the left upper lobe. 2. Other findings as above, stable. IMPRESSION: 1. Limited abdominal valuation given noncontrast technique, motion and external source artifacts as described. 2. Ascites. No overt bowel or urinary obstruction. 3. Generalized soft tissue edema/anasarca. Head CT 06/11/19 00:00 IMPRESSION: 1. No acute intracranial findings. Thoracentesis Ultrasound 06/11/19 00:00 IMPRESSION: SUCCESSFUL THORACENTESIS USING ULTRASOUND GUIDANCE. Chest X-Ray 06/12/19 06:00 IMPRESSION: Unchanged small bore right basilar chest tube with decreased, now trace right pleural effusion. Persistent patchy right mid lung left upper lobe airspace disease, mildly improved from prior. Assessment and Plan - Diagnosis (1) Acute respiratory failure Qualifiers: Respiratory failure complication: unspecified whether with hypoxia or hypercapnia Qualified Code(s): J96.00 - Acute respiratory failure, unspecified whether with hypoxia or hypercapnia Is this a current diagnosis for this admission?: Yes (2) HCAP (healthcare-associated pneumonia) Is this a current diagnosis for this admission?: Yes (3) Septic shock Is this a current diagnosis for this admission?: Yes (4) Bacteremia Is this a current diagnosis for this admission?: Yes (5) UTI (urinary tract infection) Qualifiers: Urinary tract infection type: acute cystitis Hematuria presence: without hematuria Qualified Code(s): N30.00 - Acute cystitis without hematuria Is this a current diagnosis for this admission?: Yes (6) COPD (chronic obstructive pulmonary disease) Qualifiers: COPD type: emphysema Emphysema type: centrilobular Qualified Code(s): J43.2 - Centrilobular emphysema Is this a current diagnosis for this admission?: Yes (7) Acute renal failure Qualifiers: Acute renal failure type: unspecified Qualified Code(s): N17.9 - Acute kidney failure, unspecified Is this a current diagnosis for this admission?: Yes (8) Thrombocytopenia Is this a current diagnosis for this admission?: Yes Plan Summary: Assessment: Critically ill 63 yo woman with acute respiratory failure, ARDS, E.coli PNA, septic shock, KATHLEEN, PUD, recent GI bleed, E.coli bacteremia, UTI, thrombocytopenia, possible lung cancer. Plan: 1. Respiratory: acute respiratory failure-resolved. Pt extubated 06/09. Pt is currently on nasal cannula. 2. Pulmonary: ARDS, PNA due to E.coli and tristin, COPD. Right plueral effusion, ?post-obstructive PNA. s/p thoracentesis on 06/08. Pleural fluid LDH was 837. I am concerned this may represent a malignancy. Dr. Guthrie following. ATBX Day 7. On vanc, meropenem, diflucan. Right pleural effusion has re- accumulated and radiology inserted a right pleural catheter on 06/12 3. CV: hypotension due to septic shock, resolving. Is off pressors. Afib,continue amiodarone infusioin. 4. ID: septic shock, PNA due to E.coli and tristin, E.coli bacteremia, UTI. ATBX Day 7. On vanc, meropenem, diflucan. WBC has decreased to 21.7 5. Renal: KATHLEEN. Cr is 2.31. Hyponatremia, resolving. Na has increased to 124. ?SIADH from malignancy. Nephrology following. 6. GI/Surg: PUD and recent GI bleed requiring 4 units PRBC last admission. Protonix 40 mg IV BID. s/p EGD on 06/03. No signs of bleeding 7. Heme/onc: Hg is 7.2. Will transfuse 1 unit PRBC. Thrombocytopenia due to sepsis 8. Endocrine: hypoglycemia. Will add dextrose to IVF 9. Wound: sacral decubitus ulcer stage II, present on admission 10. Nutrition: on tube feeds. Will get swallow eval since pt is awake. 11. Prophylaxis: scds. No pharmacologic DVT prophylaxis due to thrombocytopenia 12. Ethics: Full code Critical care time= 40 min, excluding procedures Critical Time Critical Time (minutes): 40 Level of Care: ICU -: 1. The care of a critical patient is a dynamic process. This note is a computer help desk representative synopsis but static in nature. The timeframe for treatments given in order is not necessarily the actual time these treatments may have been done. 2. This patient requires critical care secondary to ongoing requirements for therapy not offered or safe outside the critical care environment. Transfer to a lower level of care will result in altered life or limb morbidity and mortality. 3. Multidisciplinary rounds completed. 4. ABCDE bundle addressed.
[2019-06-12 13:21] LABS: TOTAL PROTEIN BODY FLUID 1.4 g/dL (.)
--- NOTE | 2019-06-12 13:49 | EKG REPORT ---
SEVERITY:- ABNORMAL ECG - ATRIAL FIBRILLATION LOW VOLTAGE IN FRONTAL LEADS : Confirmed by: You Lopez MD 12-Jun-2019 13:49:06
--- NOTE | 2019-06-12 13:52 | PDOC PROGRESS REPORT ---
Subjective Progress Note for:: 06/12/19 Reason For Visit: Patient seen today. She is currently on a nasal cannula but was on BiPAP last night. She is more awake and more responsive than when I saw her yesterday. Her son is at the bedside and is happy with the progress that he has seen over the last few days. Patient is making good amounts of urine. Patient complains of generalized pain and she is being dosed very gingerly with narcotics. Labs and medications were reviewed. Her white count is improving. Renal numbers are stable. Sodium is late level is stable at the low 120s. Discussions were done with the treating nurse in the ICU.She is still has thoracentesis tube in. She has been having hypoglycemia and having difficulty to maintain her to be euglycemic. Physical Exam Vital Signs: Temp Pulse Resp BP Pulse Ox 97.3 F 83 24 H 137/71 H 99 06/12/19 12:00 06/12/19 12:33 06/12/19 12:33 06/12/19 12:00 06/12/19 12:33 Intake & Output 06/11/19 06/12/19 06/13/19 06:59 06:59 06:59 Intake Total 3784 3208 600 Output Total 672 2615 580 Balance 3112 593 20 Weight 86.9 kg 86.4 kg General appearance: PRESENT: mild distress Respiratory exam: PRESENT: clear to auscultation astrid, decreased breath sounds. ABSENT: crackles Cardiovascular exam: PRESENT: +S1, +S2 GI/Abdominal exam: PRESENT: normal bowel sounds, soft. ABSENT: organomegaly, tenderness Extremities exam: PRESENT: pedal edema Neurological exam: PRESENT: alert, awake, oriented to person, oriented to place Psychiatric exam: PRESENT: anxious Skin exam: ABSENT: cyanosis, erythema, mottled Results Laboratory Results: 06/12/19 04:01 06/12/19 10:50 06/10/19 06/11/19 06/11/19 06:53 12:11 12:44 WBC RBC Hgb Hct MCV MCH MCHC RDW Plt Count Seg Neutrophils % Sodium Potassium Chloride Carbon Dioxide Anion Gap BUN Creatinine Est GFR ( Amer) Glucose Serum Osmolality Calcium Magnesium Total Bilirubin AST Alkaline Phosphatase Total Protein Albumin Urine Osmolality Fluid Type PLEURAL Fluid Source LUNG Fluid Color YELLOW Fluid Appearance CLOUDY Fluid Viscosity SLIGHTLY VISCOUS Fluid WBC 2156 Fluid RBC 4833 Fluid Total Protein 1.4 Fluid LDH 218 Blood Type A POSITIVE Antibody Screen NEGATIVE 06/11/19 06/11/19 06/12/19 14:45 14:45 04:01 WBC 21.7 H RBC 2.68 L Hgb 7.2 L Hct 22.3 L MCV 83 MCH 26.7 L MCHC 32.1 RDW 18.1 H Plt Count 46 L Seg Neutrophils % Not Reportable Sodium Potassium Chloride Carbon Dioxide Anion Gap BUN Creatinine Est GFR ( Amer) Glucose Serum Osmolality 257 L Calcium Magnesium Total Bilirubin AST Alkaline Phosphatase Total Protein Albumin Urine Osmolality 122 L Fluid Type Fluid Source Fluid Color Fluid Appearance Fluid Viscosity Fluid WBC Fluid RBC Fluid Total Protein Fluid LDH Blood Type Antibody Screen 06/12/19 06/12/19 06/12/19 04:01 04:01 10:50 WBC RBC Hgb Hct MCV MCH MCHC RDW Plt Count Seg Neutrophils % Sodium 124.4 L 123.5 L Potassium 2.8 L* 2.8 L* Chloride 83 L 82 L Carbon Dioxide 31 H 30 Anion Gap 10 12 BUN 36 H 38 H Creatinine 2.31 H 2.21 H Est GFR ( Amer) 26 L 27 L Glucose 36 L* 45 L Serum Osmolality Calcium 7.9 L 8.1 L Magnesium 1.7 Total Bilirubin 0.9 AST 11 L Alkaline Phosphatase 55 Total Protein 4.2 L Albumin 2.4 L Urine Osmolality Fluid Type Fluid Source Fluid Color Fluid Appearance Fluid Viscosity Fluid WBC Fluid RBC Fluid Total Protein Fluid LDH Blood Type Antibody Screen 06/08/19 11:15 Pleural Fluid Gram Stain - Final 06/08/19 11:15 Pleural Fluid Body Fluid Culture - Final NO AEROBIC OR ANAEROBIC ORGANISMS RECOVERED 06/05/19 06/05/19 06/08/19 21:52 22:51 01:10 Creatine Kinase Cancelled CK-MB (CK-2) Troponin I Cancelled < 0.012 NT-Pro-B Natriuret Pep Cancelled [id number] H 06/08/19 06/08/19 01:10 02:00 Creatine Kinase < 20 L CK-MB (CK-2) 1.21 Troponin I 0.032 NT-Pro-B Natriuret Pep [id number] H Impressions: KUB X-Ray 06/06/19 00:00 IMPRESSION: Nasogastric tube in the gastric body Femoral line in place on the right Abdomen/Pelvis CT 06/10/19 00:00 IMPRESSION: 1. Extensive lung findings as above. When compared to 06/06/2019, right pleural effusion is slightly progressive and there is a new small left pleural effusion. Consolidation in the right lung has improved. Progressive interstitial infiltrate in the right upper lobe with new patchy interstitial infiltrate in the left upper lobe. 2. Other findings as above, stable. IMPRESSION: 1. Limited abdominal valuation given noncontrast technique, motion and external source artifacts as described. 2. Ascites. No overt bowel or urinary obstruction. 3. Generalized soft tissue edema/anasarca. Chest CT 06/10/19 00:00 IMPRESSION: 1. Extensive lung findings as above. When compared to 06/06/2019, right pleural effusion is slightly progressive and there is a new small left pleural effusion. Consolidation in the right lung has improved. Progressive interstitial infiltrate in the right upper lobe with new patchy interstitial infiltrate in the left upper lobe. 2. Other findings as above, stable. IMPRESSION: 1. Limited abdominal valuation given noncontrast technique, motion and external source artifacts as described. 2. Ascites. No overt bowel or urinary obstruction. 3. Generalized soft tissue edema/anasarca. Head CT 06/11/19 00:00 IMPRESSION: 1. No acute intracranial findings. Thoracentesis Ultrasound 06/11/19 00:00 IMPRESSION: SUCCESSFUL THORACENTESIS USING ULTRASOUND GUIDANCE. Chest X-Ray 06/12/19 06:00 IMPRESSION: Unchanged small bore right basilar chest tube with decreased, now trace right pleural effusion. Persistent patchy right mid lung left upper lobe airspace disease, mildly improved from prior. Assessment & Plan - Diagnosis (1) Septic shock Is this a current diagnosis for this admission?: Yes Plan: Currently stable off all pressors. Continue fluids. We will add albumin as well. (2) Acute renal failure Qualifiers: Acute renal failure type: unspecified Qualified Code(s): N17.9 - Acute kidney failure, unspecified Is this a current diagnosis for this admission?: Yes Plan: Nonoliguric. Stable renal numbers. Continue on present guidelines. No indications for renal replacements. Electrolytes needs to be monitored carefully including sodium and K.Potassium is low and is being replaced.Vancomycin levels came back toxic today 26 and is being held. Monitor Vanco very closely in this current situation for obvious reasons. (3) Acute hyponatremia Plan: Currently stable in the low 120s. Continue current guidelines. Monitor closely. (4) Acute respiratory failure Qualifiers: Respiratory failure complication: unspecified whether with hypoxia or hypercapnia Qualified Code(s): J96.00 - Acute respiratory failure, unspecified whether with hypoxia or hypercapnia Is this a current diagnosis for this admission?: Yes Plan: Slow but steady improvement. Currently only on nasal cannula but was on BiPAP last night. (5) HCAP (healthcare-associated pneumonia) Is this a current diagnosis for this admission?: Yes Plan: On IV antibiotics. Vancomycin levels came back toxic at 26 and is being held as of today. Monitor that closely. (6) Lung mass Is this a current diagnosis for this admission?: Yes Plan: As per route jumper/heme-onc. (7) Sacral decubitus ulcer Qualifiers: Pressure injury stage: unstageable Qualified Code(s): L89.150 - Pressure ulcer of sacral region, unstageable Is this a current diagnosis for this admission?: Yes Plan: Being managed by route jumper. (8) Thrombocytopenia Is this a current diagnosis for this admission?: Yes Plan: Today is 46 and is dropping. Being managed by route jumper/heme-onc. (9) Altered mental status Qualifiers: Altered mental status type: transient alteration of awareness Qualified Code(s): R40.4 - Transient alteration of awareness Plan: Much improved compared to yesterday. (10) Anemia Qualifiers: Anemia type: iron deficiency Iron deficiency anemia type: chronic blood loss Qualified Code(s): D50.0 - Iron deficiency anemia secondary to blood loss (chronic) Is this a current diagnosis for this admission?: Yes Plan: Relatively stable. Monitor for need for transfusions. (11) CHRONC PAIN Is this a current diagnosis for this admission?: Yes Plan: Managed by route jumper. (12) COPD (chronic obstructive pulmonary disease) Qualifiers: COPD type: emphysema Emphysema type: centrilobular Qualified Code(s): J43.2 - Centrilobular emphysema Is this a current diagnosis for this admission?: Yes Plan: Status quo.
[2019-06-12 14:58] LABS: PHOSPHORUS 3.4 mg/dL (2.5-4.5)
[2019-06-12 15:57] LABS: ALBUMIN 2.6 g/dL (3.5-5.0); ALKALINE PHOSPHATASE 73 U/L (38-126); ANION GAP 12 (5-19); ASPARTATE AMINO TRANSFERASE 12 U/L (14-36); BILIRUBIN,DIRECT 0.4 mg/dL (0.0-0.4); BILIRUBIN,TOTAL 0.9 mg/dL (0.2-1.3); BLOOD UREA NITROGEN 37 mg/dL (7-20); CALCIUM 8.1 mg/dL (8.4-10.2); CARBON DIOXIDE 30 mmol/L (22-30); CHLORIDE 82 mmol/L (98-107); POTASSIUM 3.3 mmol/L (3.6-5.0); TOTAL PROTEIN 4.6 g/dL (6.3-8.2)
[2019-06-12] MEDS: MEROPENEM 500 MG in NORMAL SALINE 50 ML IV SCH ×2 (16:05→22:00)
[2019-06-12 16:17] LABS: GLUCOSE 66 mg/dL (75-110)
[2019-06-12 17:34] LABS: HEMATOCRIT 30.8 % (36.0-47.0); MEAN CORPUSCULAR HEMOGLOBIN 27.3 pg (27.0-33.4); MEAN CORPUSCULAR HGB CONC 32.7 g/dL (32.0-36.0); MEAN CORPUSCULAR VOLUME 83 fl (80-97); RED CELL DISTRIBUTION WIDTH 17.5 % (11.5-14.0)
[2019-06-12 18:03] LABS: HEMOGLOBIN 10.1 g/dL (12.0-15.5)
[2019-06-12 18:04] LABS: PLATELET COUNT 46 10^3/uL (150-450)
[2019-06-12 18:19] LABS: ANION GAP 12 (5-19); BLOOD UREA NITROGEN 37 mg/dL (7-20); CARBON DIOXIDE 29 mmol/L (22-30); CHLORIDE 83 mmol/L (98-107); GLUCOSE 75 mg/dL (75-110)
[2019-06-12] MEDS: POTASSIUM CHLORIDE 20 MEQ/50 ML RTU IV SCH ×2 (18:57→21:42)
[2019-06-12] MEDS: MAGNESIUM SULFATE 1 GM/D5W 100 ML IV SCH ×2 (18:57→21:42)
[2019-06-13] MEDS: IPRATROPIUM/ALBUTEROL 0.5-2.5 MG/3 ML AMPUL NEB SCH ×7 (00:22→23:59)
[2019-06-13 04:28] LABS: HEMATOCRIT 30.4 % (36.0-47.0); MEAN CORPUSCULAR HEMOGLOBIN 27.2 pg (27.0-33.4); MEAN CORPUSCULAR HGB CONC 32.8 g/dL (32.0-36.0); MEAN CORPUSCULAR VOLUME 83 fl (80-97); RED BLOOD COUNT 3.67 10^6/uL (3.72-5.28); RED CELL DISTRIBUTION WIDTH 17.8 % (11.5-14.0); WHITE BLOOD COUNT 26.4 10^3/uL (4.0-10.5)
[2019-06-13 04:30] LABS: ALBUMIN 2.4 g/dL (3.5-5.0); ALKALINE PHOSPHATASE 87 U/L (38-126); ANION GAP 11 (5-19); ASPARTATE AMINO TRANSFERASE 13 U/L (14-36); BILIRUBIN,DIRECT 0.3 mg/dL (0.0-0.4); BILIRUBIN,TOTAL 0.7 mg/dL (0.2-1.3); BLOOD UREA NITROGEN 38 mg/dL (7-20); CARBON DIOXIDE 30 mmol/L (22-30); CHLORIDE 84 mmol/L (98-107); GLUCOSE 86 mg/dL (75-110); POTASSIUM 3.1 mmol/L (3.6-5.0); TOTAL PROTEIN 4.2 g/dL (6.3-8.2)
[2019-06-13 05:02] LABS: ABSOLUTE LYMPHOCYTES# (MANUAL) 0.8 10^3/uL (0.5-4.7); ABSOLUTE MONOCYTES # (MANUAL) 0.5 10^3/uL (0.1-1.4); BAND NEUTROPHILS % (MANUAL) 3 % (3-5); BASOPHILS % (MANUAL) 0 % (0-2); EOSINOPHILS % (MANUAL) 0 % (0-6); LYMPHOCYTES % (MANUAL) 3 % (13-45); MONOCYTES % (MANUAL) 2 % (3-13); SEGMENTED NEUTROPHILS % (MAN) 92 % (42-78); TOTAL CELLS COUNTED 100
[2019-06-13 05:04] LABS: TOXIC GRANULATION 1+
[2019-06-13 05:05] LABS: ANISOCYTOSIS 1+; BURR CELLS SLIGHT; OVALOCYTES SLIGHT; PLATELET COMMENT DECREASED; PLATELET COUNT 37 10^3/uL (150-450); POIKILOCYTOSIS SLIGHT; SCHISTOCYTES SLIGHT; TEAR DROP CELLS SLIGHT; TOXIC VACUOLATION PRESENT
[2019-06-13] MEDS: POTASSI CL 20 MEQ/50 ML RIDER 20 MEQ/50 ML RTUPB IV SCH ×2 (06:58→09:02)
[2019-06-13] MEDS ORDERED: DEXTROSE 5%-WATER 500 ML with AMIODARONE HCL 900 MG IV PRN ×2 (08:31)
[2019-06-13] MEDS: MEROPENEM 500 MG in NORMAL SALINE 50 ML IV SCH ×2 (09:00→21:50)
[2019-06-13] MEDS: ACETAMINOPHEN 325 MG TABLET PO PRN (09:01)
[2019-06-13] MEDS: FUROSEMIDE INJ/PF 20 MG/2 ML SDV IV SCH ×2 (09:01→21:51)
[2019-06-13] MEDS: PANTOPRAZOLE SODIUM 40 MG VIAL IV SCH ×2 (09:01→21:51)
[2019-06-13] MEDS: DEXTROSE 10%-WATER 1,000 ML IV PRN (09:08)
[2019-06-13] MEDS ORDERED: (PENDING PHARMACY ID) (Gabapentin Enacarbil [Horizant] 600 MG) PO SCH (10:00)
[2019-06-13] MEDS ORDERED: NABUMETONE 750 MG PO SCH (10:00)
[2019-06-13 10:08] LABS: VANCOMYCIN,TROUGH 22.7 ug/mL (5.0-20.0)
[2019-06-13] MEDS: FLUTICASONE NASAL SPRAY 50 MCG/SPRY 120 SPRAY/16 GM NASL SCH (11:15)
[2019-06-13] MEDS: GABAPENTIN 300 MG CAPSULE PO SCH ×2 (11:15→21:51)
[2019-06-13] MEDS: ROPINIROLE HCL 0.25 MG TABLET PO SCH ×2 (11:15→17:11)
[2019-06-13] MEDS: CITALOPRAM HYDROBROMIDE 20 MG TABLET PO SCH (11:15)
[2019-06-13] MEDS: DILTIAZEM HCL 60 MG TABLET PO SCH ×3 (11:15→17:12)
[2019-06-13] MEDS: GUAIFENESIN 600 MG TABLET.SA PO SCH ×2 (11:19→21:51)
--- NOTE | 2019-06-13 11:38 | PDOC CRITICAL CARE PROG REPORT ---
General Date:: 06/13/19 ICU Day:: 8 Hospital Day:: 8 Resuscitation Status: Full Code Events in the past 12 to 24 Hours:: Volume loaded for worsening kidney function Review of systems relevant to events:: Renal, CV, resp. Reason for ICU Addmission:: PNA, acute respiratory failure, septic shock, need for pressors. - Medications: Medications reviewed and adjusted accordingly: Yes Vasopressors:: Phenylephrine. Sedation:: None Physical Exam Vital Signs: Temp Pulse Resp BP Pulse Ox 97.9 F 92 25 H 123/65 99 06/13/19 08:00 06/13/19 10:00 06/13/19 10:20 06/13/19 10:20 06/13/19 10:20 Intake & Output 06/12/19 06/13/19 06/14/19 06:59 06:59 06:59 Intake Total 3208 1286 1020 Output Total 2615 3065 825 Balance 593 -1779 195 Weight 86.4 kg 85.3 kg Weight/Height Weight 85.3 kg Height 5 ft 6 in General appearance: PRESENT: no acute distress, other - Very weak appearing. Head exam: PRESENT: atraumatic Eye exam: PRESENT: EOMI, PERRLA Ear exam: PRESENT: normal external ear exam Mouth exam: PRESENT: dry mucosa Respiratory exam: PRESENT: accessory muscle use, clear to auscultation astrid, unlabored Cardiovascular exam: PRESENT: RRR. ABSENT: diastolic murmur, rubs, systolic murmur Vascular exam: PRESENT: normal capillary refill GI/Abdominal exam: PRESENT: normal bowel sounds, soft. ABSENT: distended, guarding, mass, organolmegaly, rebound, tenderness Rectal exam: PRESENT: deferred Gentrourinary exam: PRESENT: indwelling catheter Extremities exam: PRESENT: pedal edema Musculoskeletal exam: PRESENT: normal inspection Neurological exam: PRESENT: alert, altered, awake, oriented to person, oriented to place Tubes/Lines: PRESENT: Chest Tube, Central Line, Nasogastic Tube Laboratory/Radiographs Laboratory Results: 06/13/19 03:25 06/13/19 03:25 06/10/19 06/11/19 06/12/19 06:53 12:44 10:50 WBC RBC Hgb Hct MCV MCH MCHC RDW Plt Count Seg Neutrophils % Sodium 123.5 L Potassium 2.8 L* Chloride 82 L Carbon Dioxide 30 Anion Gap 12 BUN 38 H Creatinine 2.21 H Est GFR ( Amer) 27 L Glucose 45 L Calcium 8.1 L Phosphorus Magnesium Total Bilirubin AST Alkaline Phosphatase Total Protein Albumin Fluid Total Protein 1.4 Fluid LDH 218 Blood Type A POSITIVE Antibody Screen NEGATIVE 06/12/19 06/12/19 06/12/19 14:16 14:28 17:15 WBC RBC Hgb Hct MCV MCH MCHC RDW Plt Count Seg Neutrophils % Sodium 123.9 L 123.8 L Potassium 3.3 L 3.0 L* Chloride 82 L 83 L Carbon Dioxide 30 29 Anion Gap 12 12 BUN 37 H 37 H Creatinine 2.19 H Est GFR ( Amer) 24 L 27 L Glucose 66 L 75 Calcium 8.1 L 8.0 L Phosphorus 3.4 Magnesium 1.5 L 1.6 Total Bilirubin 0.9 AST 12 L Alkaline Phosphatase 73 Total Protein 4.6 L Albumin 2.6 L Fluid Total Protein Fluid LDH Blood Type Antibody Screen 06/12/19 06/13/19 06/13/19 17:15 03:25 03:25 WBC 29.0 H 26.4 H RBC 3.70 L 3.67 L Hgb 10.1 L D 10.0 L Hct 30.8 L 30.4 L MCV 83 83 MCH 27.3 27.2 MCHC 32.7 32.8 RDW 17.5 H 17.8 H Plt Count 46 L 37 L Seg Neutrophils % Not Reportable Sodium 125.0 L Potassium 3.1 L Chloride 84 L Carbon Dioxide 30 Anion Gap 11 BUN 38 H Creatinine 2.28 H Est GFR ( Amer) 26 L Glucose 86 Calcium 8.0 L Phosphorus Magnesium Total Bilirubin 0.7 AST 13 L Alkaline Phosphatase 87 Total Protein 4.2 L Albumin 2.4 L Fluid Total Protein Fluid LDH Blood Type Antibody Screen 06/08/19 10:35 Blood Blood Culture - Final NO GROWTH IN 5 DAYS 06/05/19 06/05/19 06/08/19 21:52 22:51 01:10 Creatine Kinase Cancelled CK-MB (CK-2) Troponin I Cancelled < 0.012 NT-Pro-B Natriuret Pep Cancelled [id number] H 06/08/19 06/08/19 01:10 02:00 Creatine Kinase < 20 L CK-MB (CK-2) 1.21 Troponin I 0.032 NT-Pro-B Natriuret Pep [id number] H Impressions: KUB X-Ray 06/06/19 00:00 IMPRESSION: Nasogastric tube in the gastric body Femoral line in place on the right Abdomen/Pelvis CT 06/10/19 00:00 IMPRESSION: 1. Extensive lung findings as above. When compared to 06/06/2019, right pleural effusion is slightly progressive and there is a new small left pleural effusion. Consolidation in the right lung has improved. Progressive interstitial infiltrate in the right upper lobe with new patchy interstitial infiltrate in the left upper lobe. 2. Other findings as above, stable. IMPRESSION: 1. Limited abdominal valuation given noncontrast technique, motion and external source artifacts as described. 2. Ascites. No overt bowel or urinary obstruction. 3. Generalized soft tissue edema/anasarca. Chest CT 06/10/19 00:00 IMPRESSION: 1. Extensive lung findings as above. When compared to 06/06/2019, right pleural effusion is slightly progressive and there is a new small left pleural effusion. Consolidation in the right lung has improved. Progressive interstitial infiltrate in the right upper lobe with new patchy interstitial infiltrate in t he left upper lobe. 2. Other findings as above, stable. IMPRESSION: 1. Limited abdominal valuation given noncontrast technique, motion and external source artifacts as described. 2. Ascites. No overt bowel or urinary obstruction. 3. Generalized soft tissue edema/anasarca. Head CT 06/11/19 00:00 IMPRESSION: 1. No acute intracranial findings. Thoracentesis Ultrasound 06/11/19 00:00 IMPRESSION: SUCCESSFUL THORACENTESIS USING ULTRASOUND GUIDANCE. Chest X-Ray 06/12/19 06:00 IMPRESSION: Unchanged small bore right basilar chest tube with decreased, now trace right pleural effusion. Persistent patchy right mid lung left upper lobe airspace disease, mildly improved from prior. All labs, radiographs, diagnostic studies and EKGs were personally reviewed: Yes In addition, reports of radiographic and diagnostic studies were read: Yes Assessment and Plan - Diagnosis (1) Acute respiratory failure Qualifiers: Respiratory failure complication: unspecified whether with hypoxia or hypercapnia Qualified Code(s): J96.00 - Acute respiratory failure, unspecified whether with hypoxia or hypercapnia Is this a current diagnosis for this admission?: Yes Plan: This has resolved in terms of failure. (2) Bacteremia Is this a current diagnosis for this admission?: Yes Plan: Previous cultures positive for E. coli. Most recent cultures clear. Continue antibiotics for now. Course nearly done. (3) COPD (chronic obstructive pulmonary disease) Qualifiers: COPD type: emphysema Emphysema type: centrilobular Qualified Code(s): J43.2 - Centrilobular emphysema Is this a current diagnosis for this admission?: Yes Plan: No wheezing. Resolved (4) HCAP (healthcare-associated pneumonia) Is this a current diagnosis for this admission?: Yes Plan: Unsure if HCAP or aspiration. At risk of both. Suspect aspiration. (5) Septic shock Is this a current diagnosis for this admission?: Yes Plan: Still in need of pressors but not appearing to bein a septic shock. Cortisol pendind. PO cardizen started in attempt to stop IV amiodarone. (6) Thrombocytopenia Is this a current diagnosis for this admission?: Yes Plan: Likely due to infection. A DIC picture. (7) UTI (urinary tract infection) Qualifiers: Urinary tract infection type: site unspecified Hematuria presence: without hematuria Qualified Code(s): N39.0 - Urinary tract infection, site not specified Is this a current diagnosis for this admission?: Yes Plan: No culture obtained but U/A highly suggestive with E. coli bacteremia. Plan Summary: Continue antibiotics. Wean and D/C amiodarone and phenylephrine. [facility] want to take her back to [place] when discharged. Will need rehab. Critical Time Critical Time (minutes): 40 Level of Care: ICU Anticipated discharge: SNF Within: Other - A week or more. -: 1. The care of a critical patient is a dynamic process. This note is a manufacturer's representative synopsis but static in nature. The timeframe for treatments given in order is not necessarily the actual time these treatments may have been done. 2. This patient requires critical care secondary to ongoing requirements for therapy not offered or safe outside the critical care environment. Transfer to a lower level of care will result in altered life or limb morbidity and mortality. 3. Multidisciplinary rounds completed. 4. ABCDE bundle addressed.
[2019-06-13] MEDS: DEXTROSE 5%-WATER 250 ML with PHENYLEPHRINE HCL 40 MG IV PRN ×4 (12:58→22:01)
[2019-06-13 13:08] LABS: ALBUMIN 2.4 g/dL (3.5-5.0); ALKALINE PHOSPHATASE 93 U/L (38-126); ANION GAP 9 (5-19); ASPARTATE AMINO TRANSFERASE 13 U/L (14-36); BILIRUBIN,DIRECT 0.4 mg/dL (0.0-0.4); BILIRUBIN,TOTAL 0.7 mg/dL (0.2-1.3); BLOOD UREA NITROGEN 40 mg/dL (7-20); CALCIUM 8.1 mg/dL (8.4-10.2); CARBON DIOXIDE 31 mmol/L (22-30); CHLORIDE 84 mmol/L (98-107); GLUCOSE 91 mg/dL (75-110); POTASSIUM 3.6 mmol/L (3.6-5.0); TOTAL PROTEIN 4.5 g/dL (6.3-8.2)
[2019-06-13] MEDS: DICYCLOMINE HCL 20 MG TABLET PO SCH ×4 (13:38→21:51)
--- NOTE | 2019-06-13 16:04 | PDOC PROGRESS REPORT ---
Subjective Progress Note for:: 06/13/19 Reason For Visit: Patient doing relatively better than when I saw her yesterday. She continues to be awake alert and responsive to questions. She still in generalized body pains but says it is tolerable. No complaints of any specific chest pains, fever or chills. Labs and medications were reviewed with her and the treating nurse. She is making good amounts of urine. Her renal functions and sodium levels are relatively stable. Physical Exam Vital Signs: Temp Pulse Resp BP Pulse Ox 97.9 F 74 18 99/58 L 97 06/13/19 15:10 06/13/19 15:10 06/13/19 15:10 06/13/19 15:10 06/13/19 15:10 Intake & Output 06/12/19 06/13/19 06/14/19 06:59 06:59 06:59 Intake Total 3208 1286 1184 Output Total 2615 3065 1350 Balance 593 -1779 -166 Weight 86.4 kg 85.3 kg General appearance: PRESENT: no acute distress Respiratory exam: PRESENT: clear to auscultation astrid, crackles, decreased breath sounds Cardiovascular exam: PRESENT: +S1, +S2 GI/Abdominal exam: PRESENT: normal bowel sounds, soft. ABSENT: organomegaly, tenderness Extremities exam: PRESENT: +1 edema Neurological exam: PRESENT: awake, oriented to person, oriented to place Skin exam: ABSENT: cyanosis, erythema, mottled Results Laboratory Results: 06/13/19 03:25 06/13/19 12:35 06/12/19 06/12/19 06/12/19 14:16 17:15 17:15 WBC 29.0 H RBC 3.70 L Hgb 10.1 L D Hct 30.8 L MCV 83 MCH 27.3 MCHC 32.7 RDW 17.5 H Plt Count 46 L Seg Neutrophils % Sodium 123.9 L 123.8 L Potassium 3.3 L 3.0 L* Chloride 82 L 83 L Carbon Dioxide 30 29 Anion Gap 12 12 BUN 37 H 37 H Creatinine 2.19 H Est GFR ( Amer) 24 L 27 L Glucose 66 L 75 Calcium 8.1 L 8.0 L Magnesium 1.6 Total Bilirubin 0.9 AST 12 L Alkaline Phosphatase 73 Total Protein 4.6 L Albumin 2.6 L 06/13/19 06/13/19 06/13/19 03:25 03:25 12:35 WBC 26.4 H RBC 3.67 L Hgb 10.0 L Hct 30.4 L MCV 83 MCH 27.2 MCHC 32.8 RDW 17.8 H Plt Count 37 L Seg Neutrophils % Not Reportable Sodium 125.0 L 124.4 L Potassium 3.1 L 3.6 Chloride 84 L 84 L Carbon Dioxide 30 31 H Anion Gap 11 9 BUN 38 H 40 H Creatinine 2.28 H 2.05 H Est GFR ( Amer) 26 L 29 L Glucose 86 91 Calcium 8.0 L 8.1 L Magnesium 1.9 Total Bilirubin 0.7 0.7 AST 13 L 13 L Alkaline Phosphatase 87 93 Total Protein 4.2 L 4.5 L Albumin 2.4 L 2.4 L 06/08/19 12:34 Blood Blood Culture - Final NO GROWTH IN 5 DAYS 06/08/19 10:35 Blood Blood Culture - Final NO GROWTH IN 5 DAYS 06/05/19 06/05/19 06/08/19 21:52 22:51 01:10 Creatine Kinase Cancelled CK-MB (CK-2) Troponin I Cancelled < 0.012 NT-Pro-B Natriuret Pep Cancelled [id number] H 06/08/19 06/08/19 01:10 02:00 Creatine Kinase < 20 L CK-MB (CK-2) 1.21 Troponin I 0.032 NT-Pro-B Natriuret Pep [id number] H Impressions: KUB X-Ray 06/06/19 00:00 IMPRESSION: Nasogastric tube in the gastric body Femoral line in place on the right Abdomen/Pelvis CT 06/10/19 00:00 IMPRESSION: 1. Extensive lung findings as above. When compared to 06/06/2019, right pleural effusion is slightly progressive and there is a new small left pleural effusion. Consolidation in the right lung has improved. Progressive interstitial infiltrate in the right upper lobe with new patchy interstitial infiltrate in the left upper lobe. 2. Other findings as above, stable. IMPRESSION: 1. Limited abdominal valuation given noncontrast technique, motion and external source artifacts as described. 2. Ascites. No overt bowel or urinary obstruction. 3. Generalized soft tissue edema/anasarca. Chest CT 06/10/19 00:00 IMPRESSION: 1. Extensive lung findings as above. When compared to 06/06/2019, right pleural effusion is slightly progressive and there is a new small left pleural effusion. Consolidation in the right lung has improved. Progressive interstitial infiltrate in the right upper lobe with new patchy interstitial infiltrate in the left upper lobe. 2. Other findings as above, stable. IMPRESSION: 1. Limited abdominal valuation given noncontrast technique, motion and external source artifacts as described. 2. Ascites. No overt bowel or urinary obstruction. 3. Generalized soft tissue edema/anasarca. Head CT 06/11/19 00:00 IMPRESSION: 1. No acute intracranial findings. Thoracentesis Ultrasound 06/11/19 00:00 IMPRESSION: SUCCESSFUL THORACENTESIS USING ULTRASOUND GUIDANCE. Chest X-Ray 06/12/19 06:00 IMPRESSION: Unchanged small bore right basilar chest tube with decreased, now trace right pleural effusion. Persistent patchy right mid lung left upper lobe airspace disease, mildly improved from prior. Assessment & Plan - Diagnosis (1) Septic shock Is this a current diagnosis for this admission?: Yes Plan: Currently stable off all pressors. Continue fluids. Continue on albumin as well.White count is slowly getting better even though still has left shift. No katy evidences of DIC even though platelets are still dropping slightly 36 from 46 of yesterday. Coagulation profiles are normalized. (2) Acute renal failure Qualifiers: Acute renal failure type: unspecified Qualified Code(s): N17.9 - Acute kidney failure, unspecified Is this a current diagnosis for this admission?: Yes Plan: Nonoliguric. Stable renal numbers. Continue on present guidelines. No indications for renal replacements. Electrolytes needs to be monitored carefully including sodium and K. Potassium is low and is being replaced. Van comycin levels came back toxic yesterday but today it is within therapeutic range.after being held. Monitor Vanco very closely in this current situation for obvious reasons. (3) Acute hyponatremia Plan: Currently stable in the low 120s. Continue current guidelines. Monitor closely. (4) Acute respiratory failure Qualifiers: Respiratory failure complication: unspecified whether with hypoxia or hypercapnia Qualified Code(s): J96.00 - Acute respiratory failure, unspecified whether with hypoxia or hypercapnia Is this a current diagnosis for this admission?: Yes Plan: Slow but steady improvement. Currently only on nasal cannula but was on BiPAP last night. (5) HCAP (healthcare-associated pneumonia) Is this a current diagnosis for this admission?: Yes Plan: On IV antibiotics. Vancomycin levels came back toxic but have normalized and in therapeutic range today . Monitor that closely (6) Sacral decubitus ulcer Qualifiers: Pressure injury stage: unstageable Qualified Code(s): L89.150 - Pressure ulcer of sacral region, unstageable Is this a current diagnosis for this admission?: Yes Plan: Being managed by agricultural inspector. (7) Thrombocytopenia Is this a current diagnosis for this admission?: Yes Plan: Today is 37/46 and is dropping. Being managed by agricultural inspector/heme-onc. (8) Altered mental status Qualifiers: Altered mental status type: transient alteration of awareness Qualified Code(s): R40.4 - Transient alteration of awareness Plan: Slowly but steadily improving on a daily basis. (9) Anemia Qualifiers: Anemia type: iron deficiency Iron deficiency anemia type: chronic blood l oss Qualified Code(s): D50.0 - Iron deficiency anemia secondary to blood loss (chronic) Is this a current diagnosis for this admission?: Yes Plan: Relatively stable. Monitor for need for transfusions. (10) CHRONC PAIN Is this a current diagnosis for this admission?: Yes Plan: Managed by agricultural inspector. (11) COPD (chronic obstructive pulmonary disease) Qualifiers: COPD type: emphysema Emphysema type: centrilobular Qualified Code(s): J43.2 - Centrilobular emphysema Is this a current diagnosis for this admission?: Yes Plan: Status quo.
[2019-06-13] MEDS: MORPHINE SULFATE 10 MG/ML INJ IV PRN (20:51)
[2019-06-13] MEDS ORDERED: PHENYLEPHRINE HCL INJ/PF 10 MG/1 ML SDV ONE (21:12)
[2019-06-13] MEDS: LATANOPROST 0.005% OPH SOLN 2.5 ML OU SCH (22:05)
[2019-06-14] MEDS: IPRATROPIUM/ALBUTEROL 0.5-2.5 MG/3 ML AMPUL NEB SCH ×5 (04:24→20:59)
[2019-06-14 04:30] LABS: HEMATOCRIT 32.3 % (36.0-47.0); HEMOGLOBIN 10.7 g/dL (12.0-15.5); MEAN CORPUSCULAR HEMOGLOBIN 27.3 pg (27.0-33.4); MEAN CORPUSCULAR VOLUME 83 fl (80-97); RED BLOOD COUNT 3.91 10^6/uL (3.72-5.28); RED CELL DISTRIBUTION WIDTH 17.4 % (11.5-14.0); WHITE BLOOD COUNT 21.1 10^3/uL (4.0-10.5)
[2019-06-14 04:34] LABS: PLATELET COUNT 33 10^3/uL (150-450)
[2019-06-14] MEDS: MORPHINE SULFATE 10 MG/ML INJ IV PRN ×3 (04:45→17:50)
[2019-06-14 04:48] LABS: ABSOLUTE LYMPHOCYTES# (MANUAL) 0.6 10^3/uL (0.5-4.7); ABSOLUTE MONOCYTES # (MANUAL) 0.6 10^3/uL (0.1-1.4); ANION GAP 10 (5-19); BASOPHILS % (MANUAL) 0 % (0-2); BLOOD UREA NITROGEN 42 mg/dL (7-20); CARBON DIOXIDE 32 mmol/L (22-30); CHLORIDE 81 mmol/L (98-107); EOSINOPHILS % (MANUAL) 1 % (0-6); GLUCOSE 88 mg/dL (75-110); LYMPHOCYTES % (MANUAL) 3 % (13-45); MONOCYTES % (MANUAL) 3 % (3-13); SEGMENTED NEUTROPHILS % (MAN) 93 % (42-78); TOTAL CELLS COUNTED 100
[2019-06-14 04:50] LABS: ANISOCYTOSIS 1+; PLATELET COMMENT DECREASED
[2019-06-14 05:33] LABS: CREATINE KINASE MB < 0.22 ng/mL (<4.55); TROPONIN I < 0.012 ng/mL
[2019-06-14] MEDS ORDERED: PHENYLEPHRINE HCL INJ/PF 10 MG/1 ML SDV ONE (06:22)
[2019-06-14] MEDS ORDERED: POTASSI CL 20 MEQ/50 ML RIDER 40 MEQ/100 ML RTUPB IV ONE (06:52)
[2019-06-14] MEDS: DEXTROSE 5%-WATER 250 ML with PHENYLEPHRINE HCL 40 MG IV PRN ×4 (06:52→18:47)
[2019-06-14] MEDS: POTASSI CL 20 MEQ/50 ML RIDER 20 MEQ/50 ML RTUPB IV SCH ×2 (06:57→08:19)
[2019-06-14] MEDS: DEXTROSE 10%-WATER 1,000 ML IV PRN (07:44)
--- NOTE | 2019-06-14 07:48 | EKG REPORT ---
SEVERITY:- DEFECTIVE ECG - SINUS RHYTHM PROBABLE LEFT ATRIAL ABNORMALITY LEFT ANTERIOR FASCICULAR BLOCK PROBABLE LEFT VENTRICULAR HYPERTROPHY ABNORMAL T, CONSIDER ISCHEMIA, ANTERIOR LEADS BORDERLINE PROLONGED QT INTERVAL BASELINE DRIFT IMPAIRS INTERPRETATION OF [facility] : Confirmed by: You Lopez MD 14-Jun-2019 07:47:44
--- NOTE | 2019-06-14 08:56 | PDOC PROGRESS REPORT ---
Subjective Progress Note for:: 06/14/19 Subjective:: Patient seems to physically be doing better. Reviewed cytology results, negative thus far. We do not have flow cytometry back yet on the pleural fluid. Platelet count still low. But patient is not actively bleeding. Reason For Visit: PNA,SEPTIC SHOCK Physical Exam Vital Signs: Temp Pulse Resp BP Pulse Ox 98.1 F 86 21 H 100/54 L 94 06/14/19 08:00 06/14/19 08:44 06/14/19 08:44 06/14/19 08:00 06/14/19 08:44 Intake & Output 06/13/19 06/14/19 06/15/19 06:59 06:59 06:59 Intake Total 1286 1621 Output Total 3095 3570 200 Balance -1809 -1949 -200 Weight 85.3 kg 86.1 kg General appearance: PRESENT: no acute distress, well-developed, well-nourished Head exam: PRESENT: atraumatic, normocephalic Eye exam: PRESENT: conjunctiva pink, EOMI, PERRLA. ABSENT: scleral icterus Ear exam: PRESENT: normal external ear exam Mouth exam: PRESENT: moist, tongue midline Neck exam: ABSENT: carotid bruit, JVD, lymphadenopathy, thyromegaly Respiratory exam: PRESENT: clear to auscultation astrid. ABSENT: rales, rhonchi, wheezes Cardiovascular exam: PRESENT: RRR. ABSENT: diastolic murmur, rubs, systolic murmur Pulses: PRESENT: normal dorsalis pedis pul Vascular exam: PRESENT: normal capillary refill GI/Abdominal exam: PRESENT: normal bowel sounds, soft. ABSENT: distended, guarding, mass, organolmegaly, rebound, tenderness Rectal exam: PRESENT: deferred Extremities exam: PRESENT: full ROM. ABSENT: calf tenderness, clubbing, pedal edema Neurological exam: PRESENT: alert, awake, oriented to person, oriented to place, oriented to time, oriented to situation, CN II-XII grossly intact. ABSENT: motor sensory deficit Psychiatric exam: PRESENT: appropriate affect, normal mood. ABSENT: homicidal ideation, suicidal ideation Skin exam: PRESENT: dry, intact, warm. ABSENT: cyanosis, rash Results Laboratory Results: 06/14/19 04:10 06/14/19 04:10 06/13/19 06/14/19 06/14/19 12:35 04:10 04:10 WBC 21.1 H RBC 3.91 Hgb 10.7 L Hct 32.3 L MCV 83 MCH 27.3 MCHC 33.0 RDW 17.4 H Plt Count 33 L Seg Neutrophils % Not Reportable Sodium 124.4 L 123.0 L Potassium 3.6 3.0 L* Chloride 84 L 81 L Carbon Dioxide 31 H 32 H Anion Gap 9 10 BUN 40 H 42 H Creatinine 2.05 H 2.17 H Est GFR ( Amer) 29 L 28 L Glucose 91 88 Calcium 8.1 L 8.0 L Magnesium 1.9 Total Bilirubin 0.7 AST 13 L Alkaline Phosphatase 93 Total Protein 4.5 L Albumin 2.4 L 06/08/19 12:34 Blood Blood Culture - Final NO GROWTH IN 5 DAYS 06/08/19 10:35 Blood Blood Culture - Final NO GROWTH IN 5 DAYS 06/05/19 06/05/19 06/08/19 21:52 22:51 01:10 Creatine Kinase Cancelled CK-MB (CK-2) Troponin I Cancelled < 0.012 NT-Pro-B Natriuret Pep Cancelled [id number] H 06/08/19 06/08/19 06/14/19 01:10 02:00 04:40 Creatine Kinase < 20 L < 20 L CK-MB (CK-2) 1.21 Troponin I 0.032 NT-Pro-B Natriuret Pep [id number] H 06/14/19 04:40 Creatine Kinase CK-MB (CK-2) < 0.22 Troponin I < 0.012 NT-Pro-B Natriuret Pep Impressions: KUB X-Ray 06/06/19 00:00 IMPRESSION: Nasogastric tube in the gastric body Femoral line in place on the right Abdomen/Pelvis CT 06/10/19 00:00 IMPRESSION: 1. Extensive lung findings as above. When compared to 06/06/2019, right pleural effusion is slightly progressive and there is a new small left pleural effusion. Consolidation in the right lung has improved. Progressive interstitial infiltrate in the right upper lobe with new patchy interstitial infiltrate in th e left upper lobe. 2. Other findings as above, stable. IMPRESSION: 1. Limited abdominal valuation given noncontrast technique, motion and external source artifacts as described. 2. Ascites. No overt bowel or urinary obstruction. 3. Generalized soft tissue edema/anasarca. Chest CT 06/10/19 00:00 IMPRESSION: 1. Extensive lung findings as above. When compared to 06/06/2019, right pleural effusion is slightly progressive and there is a new small left pleural effusion. Consolidation in the right lung has improved. Progressive interstitial infiltrate in the right upper lobe with new patchy interstitial infiltrate in the left upper lobe. 2. Other findings as above, stable. IMPRESSION: 1. Limited abdominal valuation given noncontrast technique, motion and external source artifacts as described. 2. Ascites. No overt bowel or urinary obstruction. 3. Generalized soft tissue edema/anasarca. Head CT 06/11/19 00:00 IMPRESSION: 1. No acute intracranial findings. Thoracentesis Ultrasound 06/11/19 00:00 IMPRESSION: SUCCESSFUL THORACENTESIS USING ULTRASOUND GUIDANCE. Chest X-Ray 06/12/19 06:00 IMPRESSION: Unchanged small bore right basilar chest tube with decreased, now trace right pleural effusion. Persistent patchy right mid lung left upper lobe airspace disease, mildly improved from prior. Assessment & Plan - Diagnosis (1) Lung mass Is this a current diagnosis for this admission?: Yes Plan: Less likely to be carcinoma related, still possibility of lymphoma does exist but less likely as there were no atypical lymphocytes noted on the cytology. Await flow cytometry for final confirmation (2) Thrombocytopenia Is this a current diagnosis for this admission?: Yes Plan: DIC related, should improve as the overall condition improves. HIT antibody was negative. I do not see any medications that are causing this currently. Transfuse if patient is actively bleeding or if platelet count gets under 10. - Time Time Spent with patient: 35 or more minutes
[2019-06-14] MEDS: GUAIFENESIN 600 MG TABLET.SA PO SCH ×2 (09:11→22:42)
[2019-06-14] MEDS: GABAPENTIN 300 MG CAPSULE PO SCH ×2 (09:11→22:44)
[2019-06-14] MEDS: CITALOPRAM HYDROBROMIDE 20 MG TABLET PO SCH (09:11)
[2019-06-14] MEDS: DILTIAZEM HCL 60 MG TABLET PO SCH ×2 (09:12→17:50)
[2019-06-14] MEDS: FUROSEMIDE INJ/PF 20 MG/2 ML SDV IV SCH ×2 (09:12→22:44)
[2019-06-14] MEDS: PANTOPRAZOLE SODIUM 40 MG VIAL IV SCH ×2 (09:12→22:43)
[2019-06-14] MEDS: FLUTICASONE NASAL SPRAY 50 MCG/SPRY 120 SPRAY/16 GM NASL SCH (11:19)
[2019-06-14] MEDS: DICYCLOMINE HCL 20 MG TABLET PO SCH ×4 (11:20→22:42)
[2019-06-14] MEDS: ROPINIROLE HCL 0.25 MG TABLET PO SCH ×2 (11:22→17:50)
[2019-06-14] MEDS: MEROPENEM 500 MG in NORMAL SALINE 50 ML IV SCH ×2 (11:22→22:43)
--- NOTE | 2019-06-14 13:28 | PDOC CRITICAL CARE PROG REPORT ---
General Date:: 06/14/19 ICU Day:: 9 Hospital Day:: 9 Resuscitation Status: Full Code Events in the past 12 to 24 Hours:: Slightly improved CV status, pressors down. Renal status unchanged. She is still weak but stable enough to start PT. Review of systems relevant to events:: CV, renal, pulmonary Reason for ICU Addmission:: PNA, acute respiratory failure, septic shock, need for pressors. - Medications: Medications reviewed and adjusted accordingly: Yes Vasopressors:: Phenylephrine. Sedation:: None Physical Exam Vital Signs: Temp Pulse Resp BP Pulse Ox 98.6 F 71 18 91/54 L 93 06/14/19 12:00 06/14/19 12:15 06/14/19 12:15 06/14/19 12:00 06/14/19 12:15 Intake & Output 06/13/19 06/14/19 06/15/19 06:59 06:59 06:59 Intake Total 1286 1671 114 Output Total 3095 3570 365 Balance -1809 -1899 -251 Weight 85.3 kg 86.1 kg Weight/Height Weight 86.1 kg Height 5 ft 6 in General appearance: PRESENT: no acute distress, cooperative Head exam: PRESENT: atraumatic, normocephalic Eye exam: PRESENT: conjunctiva pink, EOMI, PERRLA. ABSENT: scleral icterus Ear exam: PRESENT: normal external ear exam Mouth exam: PRESENT: moist, tongue midline Neck exam: PRESENT: other - LIJ central line Respiratory exam: PRESENT: clear to auscultation astrid, other - Breathing easier than yesterday.. ABSENT: rales, rhonchi, wheezes Cardiovascular exam: PRESENT: RRR. ABSENT: diastolic murmur, rubs, systolic murmur Vascular exam: PRESENT: normal capillary refill GI/Abdominal exam: PRESENT: normal bowel sounds, soft. ABSENT: distended, guarding, mass, organolmegaly, rebound, tenderness Rectal exam: PRESENT: deferred Gentrourinary exam: PRESENT: indwelling catheter Extremities exam: PRESENT: pedal edema Neurological exam: PRESENT: alert, awake, oriented to person, oriented to place, oriented to time, oriented to situation, CN II-XII grossly intact. ABSENT: motor sensory deficit Skin exam: PRESENT: dry, intact, warm. ABSENT: cyanosis, rash Tubes/Lines: PRESENT: Chest Tube, Central Line, Nasogastic Tube Laboratory/Radiographs Laboratory Results: 06/14/19 04:10 06/14/19 04:10 06/13/19 06/14/19 06/14/19 12:35 04:10 04:10 WBC 21.1 H RBC 3.91 Hgb 10.7 L Hct 32.3 L MCV 83 MCH 27.3 MCHC 33.0 RDW 17.4 H Plt Count 33 L Seg Neutrophils % Not Reportable Sodium 124.4 L 123.0 L Potassium 3.6 3.0 L* Chloride 84 L 81 L Carbon Dioxide 31 H 32 H Anion Gap 9 10 BUN 40 H 42 H Creatinine 2.05 H 2.17 H Est GFR ( Amer) 29 L 28 L Glucose 91 88 Calcium 8.1 L 8.0 L Magnesium 1.9 Total Bilirubin 0.7 AST 13 L Alkaline Phosphatase 93 Total Protein 4.5 L Albumin 2.4 L 06/08/19 12:34 Blood Blood Culture - Final NO GROWTH IN 5 DAYS 06/08/19 10:35 Blood Blood Culture - Final NO GROWTH IN 5 DAYS 06/05/19 06/05/19 06/08/19 21:52 22:51 01:10 Creatine Kinase Cancelled CK-MB (CK-2) Troponin I Cancelled < 0.012 NT-Pro-B Natriuret Pep Cancelled [id number] H 06/08/19 06/08/19 06/14/19 01:10 02:00 04:40 Creatine Kinase < 20 L < 20 L CK-MB (CK-2) 1.21 Troponin I 0.032 NT-Pro-B Natriuret Pep 421120 H 06/14/19 04:40 Creatine Kinase CK-MB (CK-2) < 0.22 Troponin I < 0.012 NT-Pro-B Natriuret Pep Impressions: KUB X-Ray 06/06/19 00:00 IMPRESSION: Nasogastric tube in the gastric body Femoral line in place on the right Abdomen/Pelvis CT 06/10/19 00:00 IMPRESSION: 1. Extensive lung findings as above. When compared to 06/06/2019, right pleural effusion is slightly progressive and there is a new small left pleural effusion. Consolidation in the right lung has improved. Progressive interstitial infiltrate in the right upper lobe with new patchy interstitial infiltrate in the left upper lobe. 2. Other findings as above, stable. IMPRESSION: 1. Limited abdominal valuation given noncontrast technique, motion and external source artifacts as described. 2. Ascites. No overt bowel or urinary obstruction. 3. Generalized soft tissue edema/anasarca. Chest CT 06/10/19 00:00 IMPRESSION: 1. Extensive lung findings as above. When compared to 06/06/2019, right pleural effusion is slightly progressive and there is a new small left pleural effusion. Consolidation in the right lung has improved. Progressive interstitial infiltrate in the right upper lobe with new patchy interstitial infiltrate in the left upper lobe. 2. Other findings as above, stable. IMPRESSION: 1. Limited abdominal valuation given noncontrast technique, motion and external source artifacts as described. 2. Ascites. No overt bowel or urinary obstruction. 3. Generalized soft tissue edema/anasarca. Head CT 06/11/19 00:00 IMPRESSION: 1. No acute intracranial findings. Thoracentesis Ultrasound 06/11/19 00:00 IMPRESSION: SUCCESSFUL THORACENTESIS USING ULTRASOUND GUIDANCE. Chest X-Ray 06/12/19 06:00 IMPRESSION: Unchanged small bore right basilar chest tube with decreased, now trace right pleural effusion. Persistent patchy right mid lung left upper lobe airspace disease, mildly improved from prior. All labs, radiographs, diagnostic studies and EKGs were personally reviewed: Yes In addition, reports of radiographic and diagnostic studies were read: Yes Assessment and Plan - Diagnosis (1) Acute respiratory failure Qualifiers: Respiratory failure complication: unspecified whether with hypoxia or hypercapnia Qualified Code(s): J96.00 - Acute respiratory failure, unspecified whether with hypoxia or hypercapnia Is this a current diagnosis for this admission?: Yes Plan: Resolved. (2) Bacteremia Is this a current diagnosis for this admission?: Yes Plan: E. coli sensitive to meropenem. (3) COPD (chronic obstructive pulmonary disease) Qualifiers: COPD type: emphysema Emphysema type: centrilobular Qualified Code(s): J43.2 - Centrilobular emphysema Is this a current diagnosis for this admission?: Yes Plan: Not at all active. Breathing easier. (4) HCAP (healthcare-associated pneumonia) Is this a current diagnosis for this admission?: Yes Plan: In review of her cultures the E. coli me be a seeding or an aspiration, not an HCAP. (5) Septic shock Is this a current diagnosis for this admission?: Yes Plan: Resolved (6) Thrombocytopenia Is this a current diagnosis for this admission?: Yes Plan: Still present and going down to 33K. Example of DIC related to resolved septic process and slow to respond bone marrow. (7) UTI (urinary tract infection) Qualifiers: Urinary tract infection type: site unspecified Hematuria presence: without hematuria Qualified Code(s): N39.0 - Urinary tract infection, site not specified Is this a current diagnosis for this admission?: Yes Plan: Culture clean but probably the inciting process. Plan Summary: Wean phenlyephrine to off. Begin mobilization with PT. Hope to transition from ICU Tuesday. Critical Time Critical Time (minutes): 40 Level of Care: ICU Anticipated discharge: SNF Within: Other - Too soon to tell. -: 1. The care of a critical patient is a dynamic process. This note is a sales account representative synopsis but static in nature. The timeframe for treatments given in order is not necessarily the actual time these treatments may have been done. 2. This patient requires critical care secondary to ongoing requirements for therapy not offered or safe outside the critical care environment. Transfer to a lower level of care will result in altered life or limb morbidity and mortality. 3. Multidisciplinary rounds completed. 4. ABCDE bundle addressed.
--- NOTE | 2019-06-14 14:27 | PDOC PROGRESS REPORT ---
Subjective Progress Note for:: 06/14/19 Subjective:: Much more lucid improved Reason For Visit: PNA,SEPTIC SHOCK Physical Exam Vital Signs: Temp Pulse Resp BP Pulse Ox 98.6 F 71 18 91/54 L 93 06/14/19 12:00 06/14/19 12:15 06/14/19 12:15 06/14/19 12:00 06/14/19 12:15 Intake & Output 06/13/19 06/14/19 06/15/19 06:59 06:59 06:59 Intake Total 1286 1671 214 Output Total 3095 3570 365 Balance -1809 -1899 -151 Weight 85.3 kg 86.1 kg General appearance: PRESENT: no acute distress, cooperative, disheveled, well- developed, well-nourished Head exam: PRESENT: atraumatic, normocephalic Eye exam: PRESENT: conjunctiva pale, EOMI. ABSENT: nystagmus, periorbital swelling Mouth exam: PRESENT: dry mucosa, neck supple, tongue midline Neck exam: ABSENT: carotid bruit, full ROM, JVD, lymphadenopathy, meningismus, tenderness, thyromegaly, tracheal deviation, tracheostomy, other Respiratory exam: PRESENT: crackles, decreased breath sounds, prolonged expiratory phas, rhonchi, symmetrical, unlabored. ABSENT: retraction, stridor, tachypnea Cardiovascular exam: PRESENT: irregular rhythm Pulses: PRESENT: normal radial pulses GI/Abdominal exam: PRESENT: soft. ABSENT: guarding, mass, organolmegaly, rebound, tenderness Extremities exam: PRESENT: pedal edema. ABSENT: calf tenderness, clubbing, joint swelling, tenderness Musculoskeletal exam: ABSENT: deformity, dislocation Neurological exam: PRESENT: alert, awake Psychiatric exam: PRESENT: appropriate affect Skin exam: PRESENT: dry, warm Results Laboratory Results: 06/14/19 04:10 06/14/19 04:10 06/14/19 06/14/19 04:10 04:10 WBC 21.1 H RBC 3.91 Hgb 10.7 L Hct 32.3 L MCV 83 MCH 27.3 MCHC 33.0 RDW 17.4 H Plt Count 33 L Seg Neutrophils % Not Reportable Sodium 123.0 L Potassium 3.0 L* Chloride 81 L Carbon Dioxide 32 H Anion Gap 10 BUN 42 H Creatinine 2.17 H Est GFR ( Amer) 28 L Glucose 88 Calcium 8.0 L 06/08/19 12:34 Blood Blood Culture - Final NO GROWTH IN 5 DAYS 06/08/19 10:35 Blood Blood Culture - Final NO GROWTH IN 5 DAYS 06/05/19 06/05/19 06/08/19 21:52 22:51 01:10 Creatine Kinase Cancelled CK-MB (CK-2) Troponin I Cancelled < 0.012 NT-Pro-B Natriuret Pep Cancelled [id number] H 06/08/19 06/08/19 06/14/19 01:10 02:00 04:40 Creatine Kinase < 20 L < 20 L CK-MB (CK-2) 1.21 Troponin I 0.032 NT-Pro-B Natriuret Pep [id number] H 06/14/19 04:40 Creatine Kinase CK-MB (CK-2) < 0.22 Troponin I < 0.012 NT-Pro-B Natriuret Pep Impressions: KUB X-Ray 06/06/19 00:00 IMPRESSION: Nasogastric tube in the gastric body Femoral line in place on the right Abdomen/Pelvis CT 06/10/19 00:00 IMPRESSION: 1. Extensive lung findings as above. When compared to 06/06/2019, right pleural effusion is slightly progressive and there is a new small left pleural effusion. Consolidation in the right lung has improved. Progressive interstitial infiltrate in the right upper lobe with new patchy interstitial infiltrate in the left upper lobe. 2. Other findings as above, stable. IMPRESSION: 1. Limited abdominal valuation given noncontrast technique, motion and external source artifacts as described. 2. Ascites. No overt bowel or urinary obstruction. 3. Generalized soft tissue edema/anasarca. Chest CT 06/10/19 00:00 IMPRESSION: 1. Extensive lung findings as above. When compared to 06/06/2019, right pleural effusion is slightly progressive and there is a new small left pleural effusion. Consolidation in the right lung has improved. Progressive interstitial infiltrate in the right upper lobe with new patchy interstitial infiltrate in the left upper lobe. 2. Other findings as above, stable. IMPRESSION: 1. Limited abdominal valuation given noncontrast technique, motion and external source artifacts as described. 2. Ascites. No overt bowel or urinary obstruction. 3. Generalized soft tissue edema/anasarca. Head CT 06/11/19 00:00 IMPRESSION: 1. No acute intracranial findings. Thoracentesis Ultrasound 06/11/19 00:00 IMPRESSION: SUCCESSFUL THORACENTESIS USING ULTRASOUND GUIDANCE. Chest X-Ray 06/12/19 06:00 IMPRESSION: Unchanged small bore right basilar chest tube with decreased, now trace right pleural effusion. Persistent patchy right mid lung left upper lobe airspace disease, mildly improved from prior. Assessment & Plan - Diagnosis (1) Acute respiratory failure Qualifiers: Respiratory failure complication: unspecified whether with hypoxia or hypercapnia Qualified Code(s): J96.00 - Acute respiratory failure, unspecified whether with hypoxia or hypercapnia Is this a current diagnosis for this admission?: Yes Plan: Slowly Improving (2) COPD (chronic obstructive pulmonary disease) Qualifiers: COPD type: emphysema Emphysema type: centrilobular Qualified Code(s): J43.2 - Centrilobular emphysema Is this a current diagnosis for this admission?: Yes Plan: Continue current bronchodilator therapy and supplemental oxygen (3) HCAP (healthcare-associated pneumonia) Is this a current diagnosis for this admission?: Yes Plan: 06/06/19 08:50 Gram Stain - Final Tracheal Aspirate Sputum Culture - Final Escherichia Coli C.albicans/C.dubliniensis Normal Tri Absent 06/05/19 23:46 Blood Culture (PCR) - Final Blood Blood Culture - Final Escherichia Coli Escherichia Coli 06/05/19 22:51 Blood Culture (PCR) - Final Blood Blood Culture - Final Escherichia Coli Escherichia Coli (4) Lung mass Is this a current diagnosis for this admission?: Yes Plan: No change increased aeration Last chest x-ray 06/12/2019 - Time Time Spent with patient: 35 or more minutes Total Critical Time (Minutes): 40 Level of Care: ICU
[2019-06-14] MEDS: MIDODRINE HCL 5 MG TABLET PO SCH ×2 (16:07→17:50)
--- NOTE | 2019-06-14 16:50 | PDOC PROGRESS REPORT ---
Subjective Progress Note for:: 06/14/19 Reason For Visit: Patient seen in the ICU today. She looks moribund. She still does not feel great. She still has got this generalized body aches. However she thinks she is slightly better than from yesterday. She is now tolerating tube feeds. No complaints of any fever or chills. Labs and medications were reviewed with her that shows creatinine is stable as along with a sodium at around the low 120s. Her platelets are still dropping even though her INR is improving. Discussions were done with the treating nurse as well as the yarn worker. Physical Exam Vital Signs: Temp Pulse Resp BP Pulse Ox 98.6 F 74 26 H 89/50 L 92 06/14/19 16:00 06/14/19 16:00 06/14/19 16:00 06/14/19 16:00 06/14/19 16:00 Intake & Output 06/13/19 06/14/19 06/15/19 06:59 06:59 06:59 Intake Total 1286 1671 214 Output Total 3095 9770 450 Balance -1809 -1899 -236 Weight 85.3 kg 86.1 kg General appearance: PRESENT: no acute distress Respiratory exam: PRESENT: clear to auscultation astrid, crackles, decreased breath sounds Cardiovascular exam: PRESENT: +S1, +S2 GI/Abdominal exam: PRESENT: normal bowel sounds, soft. ABSENT: organomegaly, tenderness Extremities exam: PRESENT: pedal edema Neurological exam: PRESENT: awake, oriented to person, oriented to place Psychiatric exam: PRESENT: anxious Skin exam: ABSENT: erythema, mottled, rash Results Laboratory Results: 06/14/19 04:10 06/14/19 04:10 06/14/19 06/14/19 04:10 04:10 WBC 21.1 H RBC 3.91 Hgb 10.7 L Hct 32.3 L MCV 83 MCH 27.3 MCHC 33.0 RDW 17.4 H Plt Count 33 L Seg Neutrophils % Not Reportable Sodium 123.0 L Potassium 3.0 L* Chloride 81 L Carbon Dioxide 32 H Anion Gap 10 BUN 42 H Creatinine 2.17 H Est GFR ( Amer) 28 L Glucose 88 Calcium 8.0 L 06/08/19 12:34 Blood Blood Culture - Final NO GROWTH IN 5 DAYS 06/05/19 06/05/19 06/08/19 21:52 22:51 01:10 Creatine Kinase Cancelled CK-MB (CK-2) Troponin I Cancelled < 0.012 NT-Pro-B Natriuret Pep Cancelled [id number] H 06/08/19 06/08/19 06/14/19 01:10 02:00 04:40 Creatine Kinase < 20 L < 20 L CK-MB (CK-2) 1.21 Troponin I 0.032 NT-Pro-B Natriuret Pep [id number] H 06/14/19 04:40 Creatine Kinase CK-MB (CK-2) < 0.22 Troponin I < 0.012 NT-Pro-B Natriuret Pep Impressions: KUB X-Ray 06/06/19 00:00 IMPRESSION: Nasogastric tube in the gastric body Femoral line in place on the right Abdomen/Pelvis CT 06/10/19 00:00 IMPRESSION: 1. Extensive lung findings as above. When compared to 06/06/2019, right pleural effusion is slightly progressive and there is a new small left pleural effusion. Consolidation in the right lung has improved. Progressive interstitial infiltrate in the right upper lobe with new patchy interstitial infiltrate in the left upper lobe. 2. Other findings as above, stable. IMPRESSION: 1. Limited abdominal valuation given noncontrast technique, motion and external source artifacts as described. 2. Ascites. No overt bowel or urinary obstruction. 3. Generalized soft tissue edema/anasarca. Chest CT 06/10/19 00:00 IMPRESSION: 1. Extensive lung findings as above. When compared to 06/06/2019, right pleural effusion is slightly progressive and there is a new small left pleural effusion. Consolidation in the right lung has improved. Progressive interstitial infiltrate in the right upper lobe with new patchy interstitial infiltrate in the left upper lobe. 2. Other findings as above, stable. IMPRESSION: 1. Limited abdominal valuation given noncontrast technique, motion and external source artifacts as described. 2. Ascites. No overt bowel or urinary obstruction. 3. Generalized soft tissue edema/anasarca. Head CT 06/11/19 00:00 IMPRESSION: 1. No acute intracranial findings. Thoracentesis Ultrasound 06/11/19 00:00 IMPRESSION: SUCCESSFUL THORACENTESIS USING ULTRASOUND GUIDANCE. Chest X-Ray 06/12/19 06:00 IMPRESSION: Unchanged small bore right basilar chest tube with decreased, now trace right pleural effusion. Persistent patchy right mid lung left upper lobe airspace disease, mildly improved from prior. Assessment & Plan - Diagnosis (1) Septic shock Is this a current diagnosis for this admission?: Yes Plan: Currently stable off all pressors. Continue fluids without albumin. White count is slowly getting better even though still has left shift. No katy evidences of DIC even though platelets are still dropping slightly. Coagulation profiles are normalized. Add Midodrin. No indications for renal replacements. (2) Acute renal failure Qualifiers: Acute renal failure type: unspecified Qualified Code(s): N17.9 - Acute kidney failure, unspecified Is this a current diagnosis for this admission?: Yes Plan: Nonoliguric. Stable renal numbers. Continue on present guidelines. No indications for renal replacements. Electrolytes needs to be monitored carefully including sodium and K. Potassium is low and is being replaced. Note Vanc has been discontinued. (3) Acute hyponatremia Plan: Currently stable in the low 120s. Continue current guidelines. Monitor closely. (4) Acute respiratory failure Qualifiers: Respiratory failure complication: unspecified whether with hypoxia or hypercapnia Qualified Code(s): J96.00 - Acute respiratory failure, unspecified whether with hypoxia or hypercapnia Is this a current diagnosis for this admission?: Yes Plan: Slow but steady improvement. Currently only on nasal cannula but was on BiPAP last night. (5) HCAP (healthcare-associated pneumonia) Is this a current diagnosis for this admission?: Yes Plan: On IV antibiotics. Monitor closely (6) Sacral decubitus ulcer Qualifiers: Pressure injury stage: unstageable Qualified Code(s): L89.150 - Pressure ulcer of sacral region, unstageable Is this a current diagnosis for this admission?: Yes Plan: Being managed by yarn worker. (7) Thrombocytopenia Is this a current diagnosis for this admission?: Yes Plan: Today is 33/37/46 and is dropping though slightly today. Being managed by yarn worker/heme-onc. (8) Altered mental status Qualifiers: Altered mental status type: transient alteration of awareness Qualified Code(s): R40.4 - Transient alteration of awareness Plan: Slowly but steadily improving on a daily basis. (9) Anemia Qualifiers: Anemia type: iron deficiency Iron deficiency anemia type: chronic blood loss Qualified Code(s): D50.0 - Iron deficiency anemia secondary to blood loss (chronic) Is this a current diagnosis for this admission?: Yes Plan: Relatively stable. Monitor for need for transfusions. (10) CHRONC PAIN Is this a current diagnosis for this admission?: Yes Plan: Managed by yarn worker. (11) COPD (chronic obstructive pulmonary disease) Qualifiers: COPD type: emphysema Emphysema type: centrilobular Qualified Code(s): J43.2 - Centrilobular emphysema Is this a current diagnosis for this admission?: Yes Plan: Status quo.
[2019-06-14 21:59] LABS: ANION GAP 10 (5-19); BLOOD UREA NITROGEN 46 mg/dL (7-20); CALCIUM 8.2 mg/dL (8.4-10.2); CARBON DIOXIDE 32 mmol/L (22-30); CHLORIDE 80 mmol/L (98-107); GLUCOSE 80 mg/dL (75-110); POTASSIUM 3.5 mmol/L (3.6-5.0)
[2019-06-14] MEDS: LATANOPROST 0.005% OPH SOLN 2.5 ML OU SCH (22:43)
[2019-06-15] MEDS: IPRATROPIUM/ALBUTEROL 0.5-2.5 MG/3 ML AMPUL NEB SCH ×7 (00:39→23:54)
[2019-06-15 04:38] LABS: ANION GAP 8 (5-19); BLOOD UREA NITROGEN 44 mg/dL (7-20); CALCIUM 7.9 mg/dL (8.4-10.2); CARBON DIOXIDE 33 mmol/L (22-30); CHLORIDE 81 mmol/L (98-107); GLUCOSE 72 mg/dL (75-110); POTASSIUM 3.2 mmol/L (3.6-5.0)
[2019-06-15] MEDS ORDERED: POTASSIUM CHLORIDE 10 MEQ TABLET.ER PO SCH (10:00)
[2019-06-15] MEDS: PANTOPRAZOLE SODIUM 40 MG VIAL IV SCH ×2 (11:42→22:13)
[2019-06-15] MEDS: MEROPENEM 500 MG in NORMAL SALINE 50 ML IV SCH ×2 (11:42→22:11)
[2019-06-15] MEDS: FLUTICASONE NASAL SPRAY 50 MCG/SPRY 120 SPRAY/16 GM NASL SCH (11:42)
[2019-06-15] MEDS: FUROSEMIDE INJ/PF 20 MG/2 ML SDV IV SCH ×2 (11:43→22:13)
[2019-06-15] MEDS: DILTIAZEM HCL 60 MG TABLET PO SCH ×2 (11:43→17:47)
[2019-06-15] MEDS: GUAIFENESIN 600 MG TABLET.SA PO SCH ×2 (11:44→22:13)
[2019-06-15] MEDS: DICYCLOMINE HCL 20 MG TABLET PO SCH ×4 (11:44→22:32)
[2019-06-15] MEDS: ACETAMINOPHEN 325 MG TABLET PO PRN ×2 (11:45→17:46)
[2019-06-15] MEDS: CITALOPRAM HYDROBROMIDE 20 MG TABLET PO SCH (11:45)
[2019-06-15] MEDS: GABAPENTIN 300 MG CAPSULE PO SCH ×2 (11:45→22:13)
[2019-06-15] MEDS: ROPINIROLE HCL 0.25 MG TABLET PO SCH ×2 (11:45→17:47)
[2019-06-15] MEDS: MIDODRINE HCL 5 MG TABLET PO SCH ×3 (11:45→17:46)
[2019-06-15] MEDS: HYDROCORTISONE SOD SUCCINATE INJ/PF 100 MG/2 ML SDV IV SCH ×3 (11:51→22:13)
--- NOTE | 2019-06-15 12:55 | PDOC PROGRESS REPORT ---
Subjective Progress Note for:: 06/15/19 Reason For Visit: Patient seen today in the ICU. She is looking a whole lot better especially with her sons besides today. She is got an NG tube and was tolerating tube feeds with very little aspirate. She is being evaluated for swallow and hopefully will be switched to oral feeds. She denies any history of chest pains or shortness of breath or fever or chills. Generalized aches are better. Continue to make good urine output. Labs and medications were reviewed with the patient. Renal numbers are stable and sodium is still stable even though is still in the low 120s. Physical Exam Vital Signs: Temp Pulse Resp BP Pulse Ox 97.2 F 78 16 106/87 H 100 06/15/19 12:00 06/15/19 12:25 06/15/19 12:25 06/15/19 12:00 06/15/19 12:25 Intake & Output 06/14/19 06/15/19 06/16/19 06:59 06:59 06:59 Intake Total 1671 633 Output Total 3570 2135 625 Balance -1899 -1502 -625 Weight 86.1 kg 83.4 kg General appearance: PRESENT: no acute distress Respiratory exam: PRESENT: clear to auscultation astrid, crackles, decreased breath sounds Cardiovascular exam: PRESENT: +S1, +S2 GI/Abdominal exam: PRESENT: normal bowel sounds, soft. ABSENT: organomegaly, tenderness Extremities exam: PRESENT: +2 edema Neurological exam: PRESENT: alert, awake, oriented to person, oriented to place Psychiatric exam: PRESENT: appropriate affect Skin exam: ABSENT: cyanosis, erythema, mottled Results Laboratory Results: 06/14/19 04:10 06/15/19 03:31 06/14/19 06/15/19 20:53 03:31 Sodium 121.6 L 121.9 L Potassium 3.5 L 3.2 L Chloride 80 L 81 L Carbon Dioxide 32 H 33 H Anion Gap 10 8 BUN 46 H 44 H Creatinine 1.86 H 1.98 H Est GFR ( Amer) 33 L 31 L Glucose 80 72 L Calcium 8.2 L 7.9 L 06/11/19 12:44 Pleural Fluid - Right Pleural Effusion Gram Stain - Final 06/11/19 12:44 Pleural Fluid - Right Pleural Effusion Body Fluid Culture - Final NO AEROBIC OR ANAEROBIC ORGANISMS RECOVERED 06/05/19 06/05/19 06/08/19 21:52 22:51 01:10 Creatine Kinase Cancelled CK-MB (CK-2) Troponin I Cancelled < 0.012 NT-Pro-B Natriuret Pep Cancelled [id number] H 06/08/19 06/08/19 06/14/19 01:10 02:00 04:40 Creatine Kinase < 20 L < 20 L CK-MB (CK-2) 1.21 Troponin I 0.032 NT-Pro-B Natriuret Pep [id number] H 06/14/19 04:40 Creatine Kinase CK-MB (CK-2) < 0.22 Troponin I < 0.012 NT-Pro-B Natriuret Pep Impressions: KUB X-Ray 06/06/19 00:00 IMPRESSION: Nasogastric tube in the gastric body Femoral line in place on the right Abdomen/Pelvis CT 06/10/19 00:00 IMPRESSION: 1. Extensive lung findings as above. When compared to 06/06/2019, right pleural effusion is slightly progressive and there is a new small left pleural effusion. Consolidation in the right lung has improved. Progressive interstitial infiltrate in the right upper lobe with new patchy interstitial infiltrate in the left upper lobe. 2. Other findings as above, stable. IMPRESSION: 1. Limited abdominal valuation given noncontrast technique, motion and external source artifacts as described. 2. Ascites. No overt bowel or urinary obstruction. 3. Generalized soft tissue edema/anasarca. Chest CT 06/10/19 00:00 IMPRESSION: 1. Extensive lung findings as above. When compared to 06/06/2019, right pleural effusion is slightly progressive and there is a new small left pleural effusion. Consolidation in the right lung has improved. Progressive interstitial infiltrate in the right upper lobe with new patchy interstitial infiltrate in the left upper lobe. 2. Other findings as above, stable. IMPRESSION: 1. Limited abdominal valuation given noncontrast technique, motion and external source artifacts as described. 2. Ascites. No overt bowel or urinary obstruction. 3. Generalized soft tissue edema/anasarca. Head CT 06/11/19 00:00 IMPRESSION: 1. No acute intracranial findings. Thoracentesis Ultrasound 06/11/19 00:00 IMPRESSION: SUCCESSFUL THORACENTESIS USING ULTRASOUND GUIDANCE. Chest X-Ray 06/12/19 06:00 IMPRESSION: Unchanged small bore right basilar chest tube with decreased, now trace right pleural effusion. Persistent patchy right mid lung left upper lobe airspace disease, mildly improved from prior. Assessment & Plan - Diagnosis (1) Septic shock Is this a current diagnosis for this admission?: Yes Plan: Currently stable off all pressors. Blood pressures now finally getting much better. Continue fluids without albumin. White count is slowly getting better even though still has left shift. No katy evidences of DIC even though platelets are still dropping slightly. Coagulation profiles are normalized. No indications for renal replacements. (2) Acute renal failure Qualifiers: Acute renal failure type: unspecified Qualified Code(s): N17.9 - Acute kidney failure, unspecified Is this a current diagnosis for this admission?: Yes Plan: Nonoliguric. Stable renal numbers. Continue on present guidelines. No indications for renal replacements. Electrolytes needs to be monitored carefully including sodium and K. Potassium is low and is being replaced. (3) Acute hyponatremia Plan: Currently stable in the low 120s. Continue current guidelines. Monitor closely. (4) Acute respiratory failure Qualifiers: Respiratory failure complication: unspecified whether with hypoxia or hypercapnia Qualified Code(s): J96.00 - Acute respiratory failure, unspecified whether with hypoxia or hypercapnia Is this a current diagnosis for this admission?: Yes Plan: Slow but steady improvement. Currently only on nasal cannula. (5) HCAP (healthcare-associated pneumonia) Is this a current diagnosis for this admission?: Yes Plan: On IV antibiotics. Monitor closely (6) Sacral decubitus ulcer Qualifiers: Pressure injury stage: unstageable Qualified Code(s): L89.150 - Pressure ulcer of sacral region, unstageable Is this a current diagnosis for this admission?: Yes Plan: Being managed by microfiche duplicator. (7) Thrombocytopenia Is this a current diagnosis for this admission?: Yes Plan: Today is 30/33/37/46 and is dropping though slightly today. Being managed by microfiche duplicator/heme-onc. (8) Altered mental status Qualifiers: Altered mental status type: transient alteration of awareness Qualified Code(s): R40.4 - Transient alteration of awareness Plan: Slowly but steadily improving on a daily basis. (9) Anemia Qualifiers: Anemia type: iron deficiency Iron deficiency anemia type: chronic blood loss Qualified Code(s): D50.0 - Iron deficiency anemia secondary to blood loss (chronic) Is this a current diagnosis for this admission?: Yes Plan: Relatively stable. Monitor for need for transfusions. (10) CHRONC PAIN Is this a current diagnosis for this admission?: Yes Plan: Managed by microfiche duplicator. (11) COPD (chronic obstructive pulmonary disease) Qualifiers: COPD type: emphysema Emphysema type: centrilobular Qualified Code(s): J43.2 - Centrilobular emphysema Is this a current diagnosis for this admission?: Yes Plan: Status quo.
[2019-06-15] MEDS: POTASSIUM CHLORIDE 10 MEQ TABLET.ER PO SCH ×2 (13:04→22:13)
[2019-06-15] MEDS: DEXTROSE 50%-WATER 25 GM/50 ML DISP.SYRIN IV PRN (13:18)
--- NOTE | 2019-06-15 15:09 | PDOC CRITICAL CARE PROG REPORT ---
General Date:: 06/15/19 Resuscitation Status: Full Code Events in the past 12 to 24 Hours:: BP slightly improved, started steroids. Reason for ICU Addmission:: PNA, acute respiratory failure, septic shock, need for pressors. - Medications: Medications reviewed and adjusted accordingly: Yes Vasopressors:: Phenylephrine Sedation:: None Physical Exam Vital Signs: Temp Pulse Resp BP Pulse Ox 97.2 F 74 14 91/56 L 100 06/15/19 14:00 06/15/19 14:00 06/15/19 14:00 06/15/19 14:00 06/15/19 14:00 Intake & Output 06/14/19 06/15/19 06/16/19 06:59 06:59 06:59 Intake Total 1671 633 50 Output Total 3570 2135 1025 Balance -1899 -1502 -975 Weight 86.1 kg 83.4 kg Weight/Height Weight 83.4 kg Height 5 ft 6 in General appearance: PRESENT: no acute distress, cooperative Head exam: PRESENT: atraumatic, normocephalic Eye exam: PRESENT: conjunctiva pink, EOMI, PERRLA. ABSENT: scleral icterus Ear exam: PRESENT: normal external ear exam Mouth exam: PRESENT: moist, tongue midline Respiratory exam: PRESENT: clear to auscultation astrid, decreased breath sounds. ABSENT: rales, rhonchi, wheezes Cardiovascular exam: PRESENT: RRR. ABSENT: diastolic murmur, rubs, systolic murmur GI/Abdominal exam: PRESENT: normal bowel sounds, soft. ABSENT: distended, guarding, mass, organolmegaly, rebound, tenderness Rectal exam: PRESENT: deferred Gentrourinary exam: PRESENT: indwelling catheter Extremities exam: PRESENT: pedal edema Musculoskeletal exam: PRESENT: normal inspection Neurological exam: PRESENT: alert, awake, oriented to person, oriented to place, oriented to time, oriented to situation, CN II-XII grossly intact. ABSENT: motor sensory deficit Skin exam: PRESENT: dry, intact, warm. ABSENT: cyanosis, rash Tubes/Lines: PRESENT: Chest Tube, Central Line Laboratory/Radiographs Laboratory Results: 06/14/19 04:10 06/15/19 03:31 06/14/19 06/15/19 20:53 03:31 Sodium 121.6 L 121.9 L Potassium 3.5 L 3.2 L Chloride 80 L 81 L Carbon Dioxide 32 H 33 H Anion Gap 10 8 BUN 46 H 44 H Creatinine 1.86 H 1.98 H Est GFR ( Amer) 33 L 31 L Glucose 80 72 L Calcium 8.2 L 7.9 L 06/11/19 12:44 Pleural Fluid - Right Pleural Effusion Gram Stain - Final 06/11/19 12:44 Pleural Fluid - Right Pleural Effusion Body Fluid Culture - Final NO AEROBIC OR ANAEROBIC ORGANISMS RECOVERED 06/05/19 06/05/19 06/08/19 21:52 22:51 01:10 Creatine Kinase Cancelled CK-MB (CK-2) Troponin I Cancelled < 0.012 NT-Pro-B Natriuret Pep Cancelled [id number] H 06/08/19 06/08/19 06/14/19 01:10 02:00 04:40 Creatine Kinase < 20 L < 20 L CK-MB (CK-2) 1.21 Troponin I 0.032 NT-Pro-B Natriuret Pep [id number] H 06/14/19 04:40 Creatine Kinase CK-MB (CK-2) < 0.22 Troponin I < 0.012 NT-Pro-B Natriuret Pep Impressions: KUB X-Ray 06/06/19 00:00 IMPRESSION: Nasogastric tube in the gastric body Femoral line in place on the right Abdomen/Pelvis CT 06/10/19 00:00 IMPRESSION: 1. Extensive lung findings as above. When compared to 06/06/2019, right pleural effusion is slightly progressive and there is a new small left pleural effusion. Consolidation in the right lung has improved. Progressive interstitial infiltrate in the right upper lobe with new patchy interstitial infiltrate in the left upper lobe. 2. Other findings as above, stable. IMPRESSION: 1. Limited abdominal valuation given noncontrast technique, motion and external source artifacts as described. 2. Ascites. No overt bowel or urinary obstruction. 3. Generalized soft tissue edema/anasarca. Chest CT 06/10/19 00:00 IMPRESSION: 1. Extensive lung findings as above. When compared to 06/06/2019, right pleural effusion is slightly progressive and there is a new small left pleural effusion. Consolidation in the right lung has improved. Progressive interstitial infiltrate in the right upper lobe with new patchy interstitial infiltrate in the left upper lobe. 2. Other findings as above, stable. IMPRESSION: 1. Limited abdominal valuation given noncontrast technique, motion and external source artifacts as described. 2. Ascites. No overt bowel or urinary obstruction. 3. Generalized soft tissue edema/anasarca. Head CT 06/11/19 00:00 IMPRESSION: 1. No acute intracranial findings. Thoracentesis Ultrasound 06/11/19 00:00 IMPRESSION: SUCCESSFUL THORACENTESIS USING ULTRASOUND GUIDANCE. Chest X-Ray 06/12/19 06:00 IMPRESSION: Unchanged small bore right basilar chest tube with decreased, now trace right pleural effusion. Persistent patchy right mid lung left upper lobe airspace disease, mildly improved from prior. All labs, radiographs, diagnostic studies and EKGs were personally reviewed: Yes In addition, reports of radiographic and diagnostic studies were read: Yes Assessment and Plan - Diagnosis (1) Acute respiratory failure Qualifiers: Respiratory failure complication: unspecified whether with hypoxia or hypercapnia Qualified Code(s): J96.00 - Acute respiratory failure, unspecified whether with hypoxia or hypercapnia Is this a current diagnosis for this admission?: Yes Plan: Resolved (2) Bacteremia Is this a current diagnosis for this admission?: Yes Plan: Resolved (3) COPD (chronic obstructive pulmonary disease) Qualifiers: COPD type: emphysema Emphysema type: centrilobular Qualified Code(s): J43.2 - Centrilobular emphysema Is this a current diagnosis for this admission?: Yes Plan: Exacerbation resolved (4) HCAP (healthcare-associated pneumonia) Is this a current diagnosis for this admission?: Yes Plan: Resolving (5) Septic shock Is this a current diagnosis for this admission?: Yes Plan: Need for pressors may be related to a relative hypoadrenalism. A level of 28 is not drastically hypoadrenal. After such time lily add stress steroids to see if progress in weaning phenylephrine can be made. (6) Thrombocytopenia Is this a current diagnosis for this admission?: Yes Plan: Fairly stable. (7) UTI (urinary tract infection) Qualifiers: Urinary tract infection type: site unspecified Hematuria presence: without hematuria Qualified Code(s): N39.0 - Urinary tract infection, site not specified Is this a current diagnosis for this admission?: Yes Plan: Resolved. Plan Summary: When off phenylephrine-downgrade. Critical Time Critical Time (minutes): 35 Level of Care: ICU Anticipated discharge: SNF Within: Other - Too soon to tell. > one week. -: 1. The care of a critical patient is a dynamic process. This note is a tax representative synopsis but static in nature. The timeframe for treatments given in order is not necessarily the actual time these treatments may have been done. 2. This patient requires critical care secondary to ongoing requirements for therapy not offered or safe outside the critical care environment. Transfer to a lower level of care will result in altered life or limb morbidity and mortality. 3. Multidisciplinary rounds completed. 4. ABCDE bundle addressed.
[2019-06-15] MEDS: MORPHINE SULFATE 10 MG/ML INJ IV PRN (18:56)
[2019-06-15] MEDS: DEXTROSE 5%-WATER 250 ML with PHENYLEPHRINE HCL 40 MG IV PRN ×2 (19:00)
--- NOTE | 2019-06-15 21:29 | RADIOLOGY REPORT (SQ) ---
EXAM DESCRIPTION: [facility]: XR CHEST 1 VIEW CLINICAL HISTORY: 63 years Female, Pneumonia FINDINGS: Since 06/12/2019, enteric tube remains in place, extending into the stomach. Left IJ line tip is in the SVC. There is persistent dense right upper lobe infiltrate. Right lower chest drain remains in place. Minimal right pleural effusion. No right pneumothorax. Left lung remains well-inflated. No mediastinal shift. IMPRESSION: 1. Persistent right upper lobe pneumonia 2. Right chest drain remains in place. No pneumothorax or significant pleural effusion.
[2019-06-15] MEDS: LATANOPROST 0.005% OPH SOLN 2.5 ML OU SCH (22:33)
[2019-06-16 04:13] LABS: ANION GAP 7 (5-19); BLOOD UREA NITROGEN 46 mg/dL (7-20); CARBON DIOXIDE 32 mmol/L (22-30); CHLORIDE 81 mmol/L (98-107); GLUCOSE 112 mg/dL (75-110); POTASSIUM 3.4 mmol/L (3.6-5.0)
[2019-06-16] MEDS ORDERED: SODIUM CHLORIDE 3% 300 ML IV PRN (04:30)
[2019-06-16] MEDS: IPRATROPIUM/ALBUTEROL 0.5-2.5 MG/3 ML AMPUL NEB SCH ×5 (04:49→20:30)
[2019-06-16] MEDS ORDERED: SODIUM CHLORIDE 3% 500 ML IV ONE (04:59)
[2019-06-16 05:04] LABS: HEMATOCRIT 27.8 % (36.0-47.0); HEMOGLOBIN 9.2 g/dL (12.0-15.5); MEAN CORPUSCULAR HEMOGLOBIN 27.5 pg (27.0-33.4); MEAN CORPUSCULAR HGB CONC 33.1 g/dL (32.0-36.0); MEAN CORPUSCULAR VOLUME 83 fl (80-97); RED BLOOD COUNT 3.35 10^6/uL (3.72-5.28); RED CELL DISTRIBUTION WIDTH 17.2 % (11.5-14.0); WHITE BLOOD COUNT 19.7 10^3/uL (4.0-10.5)
[2019-06-16] MEDS: HYDROCORTISONE SOD SUCCINATE INJ/PF 100 MG/2 ML SDV IV SCH ×3 (05:20→21:08)
[2019-06-16] MEDS: DEXTROSE 5%-WATER 250 ML with PHENYLEPHRINE HCL 40 MG IV PRN ×2 (05:24)
[2019-06-16 05:42] LABS: PLATELET COUNT 45 10^3/uL (150-450)
--- NOTE | 2019-06-16 09:49 | PDOC CRITICAL CARE PROG REPORT ---
General Date:: 06/16/19 Resuscitation Status: Full Code Events in the past 12 to 24 Hours:: Brief desaturation with repositioning bipap. Improved. Review of systems relevant to events:: Respiratory. Reason for ICU Addmission:: PNA, acute respiratory failure, septic shock, need for pressors. - Medications: Medications reviewed and adjusted accordingly: Yes Vasopressors:: Phenylephrine. Sedation:: None Physical Exam Vital Signs: Temp Pulse Resp BP Pulse Ox 99.7 F 91 22 H 97/52 L 92 06/16/19 08:00 06/16/19 08:33 06/16/19 08:33 06/16/19 08:00 06/16/19 08:33 Intake & Output 06/15/19 06/16/19 06/17/19 06:59 06:59 06:59 Intake Total 633 247 Output Total 2135 2650 40 Balance -1502 -2403 -40 Weight 83.4 kg 84.5 kg Weight/Height Weight 84.5 kg Height 5 ft 6 in General appearance: PRESENT: no acute distress, cooperative Head exam: PRESENT: atraumatic, normocephalic Eye exam: PRESENT: conjunctiva pink, EOMI, PERRLA. ABSENT: scleral icterus Ear exam: PRESENT: normal external ear exam Mouth exam: PRESENT: dry mucosa, moist, tongue midline Respiratory exam: PRESENT: decreased breath sounds, rhonchi, tachypnea, unlabored Cardiovascular exam: PRESENT: RRR. ABSENT: diastolic murmur, rubs, systolic murmur Rectal exam: PRESENT: deferred Extremities exam: PRESENT: pedal edema Musculoskeletal exam: PRESENT: normal inspection Neurological exam: PRESENT: alert, awake, oriented to person, oriented to place, oriented to time, oriented to situation, CN II-XII grossly intact. ABSENT: motor sensory deficit Skin exam: PRESENT: dry, intact, warm. ABSENT: cyanosis, rash Additional comments: Sacral decubitus unchanged. Tubes/Lines: PRESENT: Central Line, Nasogastic Tube Laboratory/Radiographs Laboratory Results: 06/16/19 04:25 06/16/19 03:16 06/16/19 06/16/19 03:16 04:25 WBC 19.7 H RBC 3.35 L Hgb 9.2 L Hct 27.8 L MCV 83 MCH 27.5 MCHC 33.1 RDW 17.2 H Plt Count 45 L Sodium 120.2 L* Potassium 3.4 L Chloride 81 L Carbon Dioxide 32 H Anion Gap 7 BUN 46 H Creatinine 1.70 H Est GFR ( Amer) 37 L Glucose 112 H Calcium 8.0 L 06/11/19 12:44 Pleural Fluid - Right Pleural Effusion Gram Stain - Final 06/11/19 12:44 Pleural Fluid - Right Pleural Effusion Body Fluid Culture - Final NO AEROBIC OR ANAEROBIC ORGANISMS RECOVERED 06/05/19 06/05/19 06/08/19 21:52 22:51 01:10 Creatine Kinase Cancelled CK-MB (CK-2) Troponin I Cancelled < 0.012 NT-Pro-B Natriuret Pep Cancelled [id number] H 06/08/19 06/08/19 06/14/19 01:10 02:00 04:40 Creatine Kinase < 20 L < 20 L CK-MB (CK-2) 1.21 Troponin I 0.032 NT-Pro-B Natriuret Pep [id number] H 06/14/19 04:40 Creatine Kinase CK-MB (CK-2) < 0.22 Troponin I < 0.012 NT-Pro-B Natriuret Pep Impressions: KUB X-Ray 06/06/19 00:00 IMPRESSION: Nasogastric tube in the gastric body Femoral line in place on the right Abdomen/Pelvis CT 06/10/19 00:00 IMPRESSION: 1. Extensive lung findings as above. When compared to 06/06/2019, right pleural effusion is slightly progressive and there is a new small left pleural effusion. Consolidation in the right lung has improved. Progressive interstitial infiltrate in the right upper lobe with new patchy interstitial infiltrate in the left upper lobe. 2. Other findings as above, stable. IMPRESSION: 1. Limited abdominal valuation given noncontrast technique, motion and external source artifacts as described. 2. Ascites. No overt bowel or urinary obstruction. 3. Generalized soft tissue edema/anasarca. Chest CT 06/10/19 00:00 IMPRESSION: 1. Extensive lung findings as above. When compared to 06/06/2019, right pleural effusion is slightly progressive and there is a new small left pleural effusion. Consolidation in the right lung has improved. Progressive interstitial infiltrate in the right upper lobe with new patchy interstitial infiltrate in the left upper lobe. 2. Other findings as above, stable. IMPRESSION: 1. Limited abdominal valuation given noncontrast technique, motion and external source artifacts as described. 2. Ascites. No overt bowel or urinary obstruction. 3. Generalized soft tissue edema/anasarca. Head CT 06/11/19 00:00 IMPRESSION: 1. No acute intracranial findings. Thoracentesis Ultrasound 06/11/19 00:00 IMPRESSION: SUCCESSFUL THORACENTESIS USING ULTRASOUND GUIDANCE. Chest X-Ray 06/15/19 00:00 IMPRESSION: 1. Persistent right upper lobe pneumonia 2. Right chest drain remains in place. No pneumothorax or significant pleural effusion. All labs, radiographs, diagnostic studies and EKGs were personally reviewed: Yes In addition, reports of radiographic and diagnostic studies were read: Yes Assessment and Plan - Diagnosis (1) Acute respiratory failure Qualifiers: Respiratory failure complication: unspecified whether with hypoxia or hypercapnia Qualified Code(s): J96.00 - Acute respiratory failure, unspecified whether with hypoxia or hypercapnia Is this a current diagnosis for this admission?: Yes Plan: Resolved. In view of brief desaturation lest night a CXR was obtained showing R hilar haziness. No fever, WBC. Possible aspiration. No BM for several days. Start reglan and Miralax. (2) Bacteremia Is this a current diagnosis for this admission?: Yes Plan: Resolved (3) COPD (chronic obstructive pulmonary disease) Qualifiers: COPD type: emphysema Emphysema type: centrilobular Qualified Code(s): J43.2 - Centrilobular emphysema Is this a current diagnosis for this admission?: Yes Plan: Not active even with PNA and possible aspiration. No change in plan. (4) HCAP (healthcare-associated pneumonia) Is this a current diagnosis for this admission?: Yes Plan: Not worse. Signs of HCAP resolving. (5) Septic shock Is this a current diagnosis for this admission?: Yes Plan: Not septic but there is still a need for phenylephrine, although dose is lower. (6) Thrombocytopenia Is this a current diagnosis for this admission?: Yes Plan: Improving slightly. (7) UTI (urinary tract infection) Qualifiers: Urinary tract infection type: site unspecified Hematuria presence: without hematuria Qualified Code(s): N39.0 - Urinary tract infection, site not specif ied Is this a current diagnosis for this admission?: Yes Plan: Resolved Plan Summary: Plan to keep off bipap, miralax and reglan. Critical Time Critical Time (minutes): 40 Level of Care: ICU Anticipated discharge: SNF Within: Other - Within a week. -: 1. The care of a critical patient is a dynamic process. This note is a advertising sales representative synopsis but static in nature. The timeframe for treatments given in order is not necessarily the actual time these treatments may have been done. 2. This patient requires critical care secondary to ongoing requirements for therapy not offered or safe outside the critical care environment. Transfer to a lower level of care will result in altered life or limb morbidity and mortality. 3. Multidisciplinary rounds completed. 4. ABCDE bundle addressed.
[2019-06-16] MEDS ORDERED: FAMOTIDINE 40 MG/5 ML SUSP 50 ML PO SCH (10:00)
[2019-06-16] MEDS ORDERED: POLYETHYLENE GLYCOL 3350 POWDER 17 GM/1 PACKET PO ONE (10:30)
[2019-06-16] MEDS: MEROPENEM 500 MG in NORMAL SALINE 50 ML IV SCH ×2 (10:39→21:07)
[2019-06-16] MEDS: CITALOPRAM HYDROBROMIDE 20 MG TABLET PO SCH (10:40)
[2019-06-16] MEDS: GUAIFENESIN 600 MG TABLET.SA PO SCH ×2 (10:40→21:07)
[2019-06-16] MEDS: MIDODRINE HCL 5 MG TABLET PO SCH ×3 (10:40→17:47)
[2019-06-16] MEDS: DILTIAZEM HCL 60 MG TABLET PO SCH ×2 (10:40→17:47)
[2019-06-16] MEDS: GABAPENTIN 300 MG CAPSULE PO SCH ×2 (10:40→21:07)
[2019-06-16] MEDS: FUROSEMIDE INJ/PF 20 MG/2 ML SDV IV SCH ×2 (10:40→21:08)
[2019-06-16] MEDS: POTASSIUM CHLORIDE 10 MEQ TABLET.ER PO SCH ×2 (10:40→21:07)
[2019-06-16] MEDS: DEXTROSE 10%-WATER 1,000 ML IV PRN (10:41)
[2019-06-16] MEDS: ROPINIROLE HCL 0.25 MG TABLET PO SCH ×2 (10:41→17:48)
[2019-06-16] MEDS: FLUTICASONE NASAL SPRAY 50 MCG/SPRY 120 SPRAY/16 GM NASL SCH (10:43)
[2019-06-16] MEDS: DICYCLOMINE HCL 20 MG TABLET PO SCH ×4 (10:44→21:09)
[2019-06-16 11:10] LABS: ALBUMIN 2.1 g/dL (3.5-5.0); ALKALINE PHOSPHATASE 88 U/L (38-126); ANION GAP 8 (5-19); ASPARTATE AMINO TRANSFERASE 14 U/L (14-36); BILIRUBIN,DIRECT 0.3 mg/dL (0.0-0.4); BILIRUBIN,TOTAL 0.4 mg/dL (0.2-1.3); BLOOD UREA NITROGEN 43 mg/dL (7-20); CARBON DIOXIDE 32 mmol/L (22-30); CHLORIDE 84 mmol/L (98-107); GLUCOSE 111 mg/dL (75-110); POTASSIUM 3.7 mmol/L (3.6-5.0); TOTAL PROTEIN 4.2 g/dL (6.3-8.2)
[2019-06-16] MEDS: METOCLOPRAMIDE HCL INJ/PF 10 MG/2 ML SDV IV SCH ×3 (11:20→23:25)
[2019-06-16] MEDS: FAMOTIDINE 40 MG/5 ML SUSP 50 ML PO SCH (11:22)
[2019-06-16] MEDS: LATANOPROST 0.005% OPH SOLN 2.5 ML OU SCH (21:08)
[2019-06-16] MEDS ORDERED: LATANOPROST 0.005% OPH SOLN 2.5 ML OP SCH (22:00)
[2019-06-17] MEDS: IPRATROPIUM/ALBUTEROL 0.5-2.5 MG/3 ML AMPUL NEB SCH ×6 (01:01→20:19)
[2019-06-17] MEDS: METOCLOPRAMIDE HCL INJ/PF 10 MG/2 ML SDV IV SCH ×4 (06:52→23:11)
[2019-06-17] MEDS: HYDROCORTISONE SOD SUCCINATE INJ/PF 100 MG/2 ML SDV IV SCH ×3 (06:53→21:24)
[2019-06-17 07:10] LABS: HEMATOCRIT 29.6 % (36.0-47.0); HEMOGLOBIN 9.8 g/dL (12.0-15.5); MEAN CORPUSCULAR HEMOGLOBIN 27.6 pg (27.0-33.4); MEAN CORPUSCULAR HGB CONC 33.1 g/dL (32.0-36.0); MEAN CORPUSCULAR VOLUME 83 fl (80-97); RED BLOOD COUNT 3.55 10^6/uL (3.72-5.28); RED CELL DISTRIBUTION WIDTH 17.5 % (11.5-14.0); WHITE BLOOD COUNT 19.1 10^3/uL (4.0-10.5)
[2019-06-17] MEDS: ACETAMINOPHEN 325 MG TABLET PO PRN ×2 (07:16→19:34)
[2019-06-17] MEDS: DEXTROSE 5%-WATER 250 ML with PHENYLEPHRINE HCL 40 MG IV PRN ×2 (07:16)
[2019-06-17 07:22] LABS: ANION GAP 8 (5-19); BLOOD UREA NITROGEN 45 mg/dL (7-20); CALCIUM 8.6 mg/dL (8.4-10.2); CARBON DIOXIDE 33 mmol/L (22-30); CHLORIDE 85 mmol/L (98-107); GLUCOSE 111 mg/dL (75-110)
[2019-06-17 08:01] LABS: PLATELET COUNT 83 10^3/uL (150-450)
[2019-06-17 08:02] LABS: ABSOLUTE LYMPHOCYTES# (MANUAL) 0.2 10^3/uL (0.5-4.7); BASOPHILS % (MANUAL) 0 % (0-2); EOSINOPHILS % (MANUAL) 0 % (0-6); LYMPHOCYTES % (MANUAL) 1 % (13-45); MONOCYTES % (MANUAL) 5 % (3-13); NUCLEATED RED BLOOD CELLS 1 /100 WBC (0); SEGMENTED NEUTROPHILS % (MAN) 94 % (42-78); TOTAL CELLS COUNTED 100
[2019-06-17 08:05] LABS: ANISOCYTOSIS 1+
[2019-06-17 08:06] LABS: OVALOCYTES SLIGHT; PLATELET COMMENT DECREASED; TOXIC GRANULATION SLIGHT
[2019-06-17] MEDS: FAMOTIDINE 40 MG/5 ML SUSP 50 ML PO SCH (09:57)
[2019-06-17] MEDS: GABAPENTIN 300 MG CAPSULE PO SCH ×2 (09:57→21:27)
[2019-06-17] MEDS: CITALOPRAM HYDROBROMIDE 20 MG TABLET PO SCH (09:57)
[2019-06-17] MEDS: GUAIFENESIN 600 MG TABLET.SA PO SCH ×2 (09:57→21:27)
[2019-06-17] MEDS: MIDODRINE HCL 5 MG TABLET PO SCH ×3 (09:57→18:05)
[2019-06-17] MEDS: ROPINIROLE HCL 0.25 MG TABLET PO SCH ×2 (09:57→18:05)
[2019-06-17] MEDS: DICYCLOMINE HCL 20 MG TABLET PO SCH ×4 (09:57→21:27)
[2019-06-17] MEDS: DILTIAZEM HCL 60 MG TABLET PO SCH ×2 (09:58→10:02)
[2019-06-17] MEDS: FUROSEMIDE INJ/PF 20 MG/2 ML SDV IV SCH ×2 (09:58→21:24)
[2019-06-17] MEDS: FLUTICASONE NASAL SPRAY 50 MCG/SPRY 120 SPRAY/16 GM NASL SCH (09:58)
--- NOTE | 2019-06-17 09:58 | PDOC CRITICAL CARE PROG REPORT ---
General Date:: 06/17/19 Resuscitation Status: Full Code Events in the past 12 to 24 Hours:: Much more awake. Eating more. Review of systems relevant to events:: Neurological, GI Respiratory. Reason for ICU Addmission:: PNA, acute respiratory failure, septic shock, need for pressors. - Medications: Medications reviewed and adjusted accordingly: Yes Vasopressors:: Neosynephrine Sedation:: None Physical Exam Vital Signs: Temp Pulse Resp BP Pulse Ox 97.7 F 63 25 H 119/71 100 06/17/19 07:55 06/17/19 08:00 06/17/19 08:00 06/17/19 07:55 06/17/19 08:00 Intake & Output 06/16/19 06/17/19 06/18/19 06:59 06:59 06:59 Intake Total 247 504 189 Output Total 2650 2625 120 Balance -2403 -2121 69 Weight 84.5 kg 86.3 kg Weight/Height Weight 86.3 kg Height 5 ft 6 in General appearance: PRESENT: no acute distress, cooperative Head exam: PRESENT: atraumatic, normocephalic Eye exam: PRESENT: conjunctiva pink, EOMI, PERRLA. ABSENT: scleral icterus Ear exam: PRESENT: normal external ear exam Mouth exam: PRESENT: moist, tongue midline Respiratory exam: PRESENT: clear to auscultation astrid, wheezes - On R side-mild. ABSENT: rales, rhonchi Cardiovascular exam: PRESENT: RRR. ABSENT: diastolic murmur, rubs, systolic murmur GI/Abdominal exam: PRESENT: normal bowel sounds, soft. ABSENT: distended, guarding, mass, organolmegaly, rebound, tenderness Rectal exam: PRESENT: deferred Extremities exam: PRESENT: pedal edema Musculoskeletal exam: PRESENT: normal inspection Neurological exam: PRESENT: alert, awake, oriented to person, oriented to place, oriented to time, oriented to situation, CN II-XII grossly intact. ABSENT: motor sensory deficit Tubes/Lines: PRESENT: Chest Tube, Nasogastic Tube Laboratory/Radiographs Laboratory Results: 06/17/19 06:38 06/17/19 06:38 06/16/19 06/17/19 06/17/19 10:35 06:38 06:38 WBC 19.1 H RBC 3.55 L Hgb 9.8 L Hct 29.6 L MCV 83 MCH 27.6 MCHC 33.1 RDW 17.5 H Plt Count 83 L Seg Neutrophils % Not Reportable Sodium 123.6 L 125.7 L Potassium 3.7 4.0 Chloride 84 L 85 L Carbon Dioxide 32 H 33 H Anion Gap 8 8 BUN 43 H 45 H Creatinine 1.73 H 1.72 H Est GFR ( Amer) 36 L 36 L Glucose 111 H 111 H Calcium 8.0 L 8.6 Total Bilirubin 0.4 AST 14 Alkaline Phosphatase 88 Total Protein 4.2 L Albumin 2.1 L 06/05/19 06/05/19 06/08/19 21:52 22:51 01:10 Creatine Kinase Cancelled CK-MB (CK-2) Troponin I Cancelled < 0.012 NT-Pro-B Natriuret Pep Cancelled [id number] H 06/08/19 06/08/19 06/14/19 01:10 02:00 04:40 Creatine Kinase < 20 L < 20 L CK-MB (CK-2) 1.21 Troponin I 0.032 NT-Pro-B Natriuret Pep [id number] H 06/14/19 04:40 Creatine Kinase CK-MB (CK-2) < 0.22 Troponin I < 0.012 NT-Pro-B Natriuret Pep Impressions: KUB X-Ray 06/06/19 00:00 IMPRESSION: Nasogastric tube in the gastric body Femoral line in place on the right Abdomen/Pelvis CT 06/10/19 00:00 IMPRESSION: 1. Extensive lung findings as above. When compared to 06/06/2019, right pleural effusion is slightly progressive and there is a new small left pleural effusion. Consolidation in the right lung has improved. Progressive interstitial infiltrate in the right upper lobe with new patchy interstitial infiltrate in the left upper lobe. 2. Other findings as above, stable. IMPRESSION: 1. Limited abdominal valuation given noncontrast technique, motion and external source artifacts as described. 2. Ascites. No overt bowel or urinary obstruction. 3. Generalized soft tissue edema/anasarca. Chest CT 06/10/19 00:00 IMPRESSION: 1. Extensive lung findings as above. When compared to 06/06/2019, right pleural effusion is slightly progressive and there is a new small left pleural effusion. Consolidation in the right lung has improved. Progressive interstitial infiltrate in the right upper lobe with new patchy interstitial infiltrate in the left upper lobe. 2. Other findings as above, stable. IMPRESSION: 1. Limited abdominal valuation given noncontrast technique, motion and external source artifacts as described. 2. Ascites. No overt bowel or urinary obstruction. 3. Generalized soft tissue edema/anasarca. Head CT 06/11/19 00:00 IMPRESSION: 1. No acute intracranial findings. Thoracentesis Ultrasound 06/11/19 00:00 IMPRESSION: SUCCESSFUL THORACENTESIS USING ULTRASOUND GUIDANCE. Chest X-Ray 06/15/19 00:00 IMPRESSION: 1. Persistent right upper lobe pneumonia 2. Right chest drain remains in place. No pneumothorax or significant pleural effusion. All labs, radiographs, diagnostic studies and EKGs were personally reviewed: Yes In addition, reports of radiographic and diagnostic studies were read: Yes Assessment and Plan - Diagnosis (1) Bacteremia Is this a current diagnosis for this admission?: Yes Plan: Clear blood cultures, resolved. (2) COPD (chronic obstructive pulmonary disease) Qualifiers: COPD type: emphysema Emphysema type: centrilobular Qualified Code(s): J43.2 - Centrilobular emphysema Is this a current diagnosis for this admission?: Yes Plan: Stable. (3) HCAP (healthcare-associated pneumonia) Is this a current diagnosis for this admission?: Yes Plan: & days of antibiotics complete. Will stop (4) Septic shock Is this a current diagnosis for this admission?: Yes Plan: Resolved. Continued need for pressors unclear but getting better. (5) Thrombocytopenia Is this a current diagnosis for this admission?: Yes Plan: Level now 83. Resolving. No further treatment. Plan Summary: Monitor feeding today, if acceptable, remove NG. If R chest tube drainage goes down, remove. Stop antibiotics. Wean pressors to off. Critical Time Critical Time (minutes): 35 Level of Care: ICU Anticipated discharge: SNF Within: within 72 hours -: 1. The care of a critical patient is a dynamic process. This note is a business banking representative synopsis but static in nature. The timeframe for treatments given in order is not necessarily the actual time these treatments may have been done. 2. This patient requires critical care secondary to ongoing requirements for therapy not offered or safe outside the critical care environment. Transfer to a lower level of care will result in altered life or limb morbidity and mortality. 3. Multidisciplinary rounds completed. 4. ABCDE bundle addressed.
[2019-06-17] MEDS ORDERED: DILTIAZEM HCL 60 MG TABLET PO SCH (10:00)
[2019-06-17] MEDS: POTASSIUM CHLORIDE 10 MEQ TABLET.ER PO SCH ×2 (10:00→21:26)
[2019-06-17] MEDS: DILTIAZEM HCL 30 MG TABLET PO SCH ×2 (10:28→18:05)
[2019-06-17] MEDS: LATANOPROST 0.005% OPH SOLN 2.5 ML OU SCH (21:29)
[2019-06-18] MEDS: IPRATROPIUM/ALBUTEROL 0.5-2.5 MG/3 ML AMPUL NEB SCH ×6 (00:01→20:26)
[2019-06-18 04:08] LABS: HEMATOCRIT 29.7 % (36.0-47.0); HEMOGLOBIN 9.8 g/dL (12.0-15.5); MEAN CORPUSCULAR HEMOGLOBIN 27.4 pg (27.0-33.4); MEAN CORPUSCULAR HGB CONC 32.9 g/dL (32.0-36.0); MEAN CORPUSCULAR VOLUME 83 fl (80-97); PLATELET COUNT 108 10^3/uL (150-450); RED BLOOD COUNT 3.56 10^6/uL (3.72-5.28); RED CELL DISTRIBUTION WIDTH 17.5 % (11.5-14.0); WHITE BLOOD COUNT 14.8 10^3/uL (4.0-10.5)
[2019-06-18 04:23] LABS: ANION GAP 6 (5-19); BLOOD UREA NITROGEN 47 mg/dL (7-20); CALCIUM 8.7 mg/dL (8.4-10.2); CARBON DIOXIDE 34 mmol/L (22-30); CHLORIDE 89 mmol/L (98-107); GLUCOSE 93 mg/dL (75-110); POTASSIUM 4.1 mmol/L (3.6-5.0)
[2019-06-18 04:31] LABS: ABSOLUTE LYMPHOCYTES# (MANUAL) 0.4 10^3/uL (0.5-4.7); ABSOLUTE MONOCYTES # (MANUAL) 0.6 10^3/uL (0.1-1.4); BASOPHILS % (MANUAL) 0 % (0-2); EOSINOPHILS % (MANUAL) 0 % (0-6); LYMPHOCYTES % (MANUAL) 3 % (13-45); MONOCYTES % (MANUAL) 4 % (3-13); SEGMENTED NEUTROPHILS % (MAN) 93 % (42-78); TOTAL CELLS COUNTED 100; TOXIC GRANULATION 1+
[2019-06-18 04:32] LABS: TOXIC VACUOLATION PRESENT
[2019-06-18 04:33] LABS: ANISOCYTOSIS 1+; HYPOCHROMASIA SLIGHT; OVALOCYTES SLIGHT; PLATELET COMMENT ADEQUATE; POIKILOCYTOSIS 1+; TEAR DROP CELLS SLIGHT
[2019-06-18] MEDS: METOCLOPRAMIDE HCL INJ/PF 10 MG/2 ML SDV IV SCH (06:02)
[2019-06-18] MEDS: HYDROCORTISONE SOD SUCCINATE INJ/PF 100 MG/2 ML SDV IV SCH ×3 (06:02→22:43)
[2019-06-18] MEDS: GABAPENTIN 300 MG CAPSULE PO SCH ×2 (11:10→22:44)
[2019-06-18] MEDS: GUAIFENESIN 600 MG TABLET.SA PO SCH (11:11)
[2019-06-18] MEDS: MIDODRINE HCL 5 MG TABLET PO SCH ×3 (11:11→18:08)
[2019-06-18] MEDS: DILTIAZEM HCL 30 MG TABLET PO SCH ×2 (11:11→18:08)
[2019-06-18] MEDS: CITALOPRAM HYDROBROMIDE 20 MG TABLET PO SCH (11:11)
[2019-06-18] MEDS: DICYCLOMINE HCL 20 MG TABLET PO SCH ×4 (11:12→22:44)
[2019-06-18] MEDS: FUROSEMIDE INJ/PF 20 MG/2 ML SDV IV SCH ×2 (11:12→22:44)
[2019-06-18] MEDS: ROPINIROLE HCL 0.25 MG TABLET PO SCH ×2 (11:12→18:08)
[2019-06-18] MEDS: POTASSIUM CHLORIDE 10 MEQ TABLET.ER PO SCH ×2 (11:12→22:44)
[2019-06-18] MEDS: FLUTICASONE NASAL SPRAY 50 MCG/SPRY 120 SPRAY/16 GM NASL SCH (11:13)
--- NOTE | 2019-06-18 12:37 | RADIOLOGY REPORT (SQ) ---
EXAM DESCRIPTION: CHEST SINGLE VIEW COMPLETED DATE/TIME: 06/18/2019 12:06 pm REASON FOR STUDY: pleural effusion, chest tube COMPARISON: 06/15/2019 EXAM PARAMETERS: NUMBER OF VIEWS: One view. TECHNIQUE: Single frontal radiographic view of the chest acquired. RADIATION DOSE: NA LIMITATIONS: None. FINDINGS: LUNGS AND PLEURA: Improved right upper lobe aeration with mild residual irregular opacitie s. Stable right basilar chest tube. No significant effusion. Unremarkable left hemithorax. No leoncio reciable pneumothorax. MEDIASTINUM AND HILAR STRUCTURES: No masses. Contour normal. HEART AND VASCULAR STRUCTURES: Heart normal in size. Normal vasculature. BONES: No acute findings. HARDWARE: Left internal jugular central venous catheter with tip at SVC. There has been removal of t he enteric tube. OTHER: No other significant finding. IMPRESSION: 1. Markedly improved aeration of the right upper lung with mild residual opacities. 2. Stable small bore right basilar chest tube. No significant effusion or pneumothorax. TECHNICAL DOCUMENTATION: JOB ID: [id number] [employer]- All Rights Reserved Reading location - IP/workstation name: [email or web address]
--- NOTE | 2019-06-18 17:31 | PDOC CRITICAL CARE PROG REPORT ---
General Date:: 06/18/19 ICU Day:: 12 Hospital Day:: 12 Resuscitation Status: Full Code Events in the past 12 to 24 Hours:: Patient's overall status continues to improve. She is now off Shaun-Synephrine and has remained off for at least 24 hours. She is on supplemental hydrocortisone and Midodrine drain to support her blood pressure. She is to lerating her diet. Review of systems relevant to events:: Patient endorses significant diarrhea prior to admission. She also had abdominal discomfort which is improving. She has had frequent bowel movements since admission. Her sodium, platelets, creatinine, and overall metabolic profile have improved. Reason for ICU Addmission:: PNA, acute respiratory failure, septic shock, need for pressors. - Medications: Medications reviewed and adjusted accordingly: Yes Vasopressors:: Neosynephrine-now off Physical Exam Vital Signs: Temp Pulse Resp BP Pulse Ox 97.7 F 84 13 122/71 99 06/18/19 16:00 06/18/19 16:00 06/18/19 16:00 06/18/19 16:00 06/18/19 16:00 Intake & Output 06/17/19 06/18/19 06/19/19 06:59 06:59 06:59 Intake Total 504 196 600 Output Total 2625 2330 1245 Balance -2121 -2134 -645 Weight 86.3 kg 80 kg 80 kg Weight/Height Weight 80 kg Height 5 ft 6 in General appearance: PRESENT: no acute distress, well-developed, well-nourished Exam: 63-year-old white female who appears ill but nontoxic awake and aware oriented x4 Head exam: PRESENT: atraumatic, normocephalic Eye exam: PRESENT: conjunctiva pink, EOMI, nystagmus, PERRLA. ABSENT: conj unctival injection, scleral icterus Mouth exam: PRESENT: moist, neck supple Neck exam: PRESENT: other - Left IJ CVC site clean and dry, no erythema. ABSENT: carotid bruit, JVD, lymphadenopathy, thyromegaly Respiratory exam: PRESENT: clear to auscultation astrid, unlabored. ABSENT: accessory muscle use, rales, rhonchi, tachypnea, wheezes Cardiovascular exam: PRESENT: RRR, +S1, +S2 GI/Abdominal exam: PRESENT: diminished bowel sounds, hypoactive bowel sounds, soft, tenderness - slight in lower abdomen. Inconsistent on repeat exam.. ABSENT: ascites, distended, firm, guarding, organolmegaly Gentrourinary exam: PRESENT: indwelling catheter Extremities exam: ABSENT: pedal edema Musculoskeletal exam: PRESENT: tenderness - In feet with deep palpation.. ABSENT: deformity, dislocation Neurological exam: PRESENT: alert, awake, oriented to person, oriented to place, oriented to time, oriented to situation, CN II-XII grossly intact. ABSENT: motor sensory deficit Psychiatric exam: PRESENT: flat affect. ABSENT: agitated Focused psych exam: ABSENT: pressured speech, psychomotor agitation, restlessness Skin exam: PRESENT: dry, intact, warm. ABSENT: cyanosis, mottled, pallor, petechiae, rash Tubes/Lines: PRESENT: Chest Tube - Rojo-required secondary to hypo-osmolar hyp onatremia. Chest tube site clean and intact right posterior chest. No erythema or tenderness. Total output 50 ml today, 150 ml yesterday, Other Laboratory/Radiographs Laboratory Results: 06/18/19 03:53 06/18/19 03:53 06/18/19 06/18/19 03:53 03:53 WBC 14.8 H RBC 3.56 L Hgb 9.8 L Hct 29.7 L MCV 83 MCH 27.4 MCHC 32.9 RDW 17.5 H Plt Count 108 L Seg Neutrophils % Not Reportable Sodium 129.2 L Potassium 4.1 Chloride 89 L Carbon Dioxide 34 H Anion Gap 6 BUN 47 H Creatinine 1.69 H Est GFR ( Amer) 37 L Glucose 93 Calcium 8.7 06/05/19 06/05/19 06/08/19 21:52 22:51 01:10 Creatine Kinase Cancelled CK-MB (CK-2) Troponin I Cancelled < 0.012 NT-Pro-B Natriuret Pep Cancelled [id number] H 06/08/19 06/08/19 06/14/19 01:10 02:00 04:40 Creatine Kinase < 20 L < 20 L CK-MB (CK-2) 1.21 Troponin I 0.032 NT-Pro-B Natriuret Pep [id number] H 06/14/19 04:40 Creatine Kinase CK-MB (CK-2) < 0.22 Troponin I < 0.012 NT-Pro-B Natriuret Pep Impressions: KUB X-Ray 06/06/19 00:00 IMPRESSION: Nasogastric tube in the gastric body Femoral line in place on the right Abdomen/Pelvis CT 06/10/19 00:00 IMPRESSION: 1. Extensive lung findings as above. When compared to 06/06/2019, right pleural effusion is slightly progressive and there is a new small left pleural effusion. Consolidation in the right lung has improved. Progressive interstitial infiltrate in the right upper lobe with new patchy interstitial infiltrate in the left upper lobe. 2. Other findings as above, stable. IMPRESSION: 1. Limited abdominal valuation given noncontrast technique, motion and external source artifacts as described. 2. Ascites. No overt bowel or urinary obstruction. 3. Generalized soft tissue edema/anasarca. Chest CT 06/10/19 00:00 IMPRESSION: 1. Extensive lung findings as above. When compared to 06/06/2019, right pleural effusion is slightly progressive and there is a new small left pleural effusion. Consolidation in the right lung has improved. Progressive interstitial infiltrate in the right upper lobe with new patchy interstitial infiltrate in the left upper lobe. 2. Other findings as above, stable. IMPRESSION: 1. Limited abdominal valuation given noncontrast technique, motion and external source artifacts as described. 2. Ascites. No overt bowel or urinary obstruction. 3. Generalized soft tissue edema/anasarca. Head CT 06/11/19 00:00 IMPRESSION: 1. No acute intracranial findings. Thoracentesis Ultrasound 06/11/19 00:00 IMPRESSION: SUCCESSFUL THORACENTESIS USING ULTRASOUND GUIDANCE. Chest X-Ray 06/18/19 00:00 IMPRESSION: 1. Markedly improved aeration of the right upper lung with mild r esidual opacities. 2. Stable small bore right basilar chest tube. No significant effusion or pneumothorax. All labs, radiographs, diagnostic studies and EKGs were personally reviewed: Yes In addition, reports of radiographic and diagnostic studies were read: Yes Assessment and Plan - Diagnosis (1) Sepsis with acute organ dysfunction and septic shock Qualifiers: Sepsis type: Escherichia coli Severe sepsis acute organ dysfunction type: acute renal failure Acute renal failure type: with acute tubular necrosis Qualified Code(s): A41.51 - Sepsis due to Escherichia coli [E. coli]; R65.21 - Severe sepsis with septic shock; N17.0 - Acute kidney failure with tubular necrosis Is this a current diagnosis for this admission?: Yes Plan: Improved (2) Pneumonia due to Escherichia coli Qualifiers: Laterality: right Lung location: upper lobe of lung Qualified Code(s): J15.5 - Pneumonia due to Escherichia coli Is this a current diagnosis for this admission?: Yes Plan: Resolving (3) E coli bacteremia Is this a current diagnosis for this admission?: Yes Plan: 7-10 days of antibiotics (4) Hypo-osmolar hyponatremia Is this a current diagnosis for this admission?: Yes Plan: Based on urinary sodium and presentation, appears to be related to [id number] hyponatremia. Now improving. No neurologic sequela (5) Dehydration Is this a current diagnosis for this admission?: Yes Plan: Improved (6) Acute kidney injury (KATHLEEN) with acute tubular necrosis (ATN) Is this a current diagnosis for this admission?: Yes Plan: Improving (7) Acute respiratory failure with hypoxia Is this a current diagnosis for this admission?: Yes Plan: Resolved (8) Acute metabolic encephalopathy Is this a current diagnosis for this admission?: Yes Plan: Resolved (9) Thrombocytopenia Is this a current diagnosis for this admission?: Yes Plan: Improving. Need to consider DVT chemical prophylaxis but will follow another 24 hours. Not a candidate for arixtra. (10) Acute renal failure Qualifiers: Acute renal failure type: unspecified Qualified Code(s): N17.9 - Acute kidney failure, unspecified Is this a current diagnosis for this admission?: Yes (11) Encephalopathy acute Is this a current diagnosis for this admission?: Yes Plan: Resolved. Related to sepsis (12) Diarrhea Qualifiers: Diarrhea type: unspecified type Qualified Code(s): R19.7 - Diarrhea, unspec ified Is this a current diagnosis for this admission?: Yes Plan: Probable cause of hyponatremia and volume loss. May have led to pneumonia and bacteremia Plan Summary: Patient's course continues to move in an expected trajectory. Her pneumonia is improving and she only has platelike atelectasis in the right upper lobe. This also could be residual scarring. Her chest tube output has improved and we will consider placement of the chest tube off suction and placed on waterseal. In determining the root cause of this patient's illness we have determined significant findings: Diarrhea with E. coli pneumonia and bacteremia. The suspicion is that the E. coli which appears to be of GI origin resulted in pneumonia leading to bacteremia. Given the dehydration and hyponatremia this also may have contributed to her shock like state. With the above and the addition of thrombocytopenia and atypical E. coli would need to be considered (O157:H7). Routine standard treatment is supportive care however patient had bacteremia and pneumonia requiring treatment. Will ask the lab to check to see if this subtype is present. She does meet qualifying factors for uremic syndrome except that she did not have melanotic stool. There was evidence of petechiae during her initial acute illness. Overall she has revived this index illness but is significantly deconditioned. Will have physical therapy and Occupational Therapy work with the patient. She no doubt will need rehabilitation. Will consider downgrade from ICU status. Chest tube potentially to be removed within the next 24 hours depending on volume drained. Have initiated fluid restriction for the time being and patient is being diuresed from the renal service. Her sodiums have improved. She does have loose stools here in the ICU and a bowel management system has been ordered. In addition I have asked for stool WBCs and C. difficile studies. Although her hypotension has improved she still requires midodrine and steroid supplementation. We will attempt to wean these. Critical Time Critical Time (minutes): 40 Level of Care: ICU Anticipated discharge: Acute Rehab Within: within 48 hours -: 1. The care of a critical patient is a dynamic process. This note is a customer relations representative synopsis but static in nature. The timeframe for treatments given in order is not necessarily the actual time these treatments may have been done. 2. This patient requires critical care secondary to ongoing requirements for therapy not offered or safe outside the critical care environment. Transfer to a lower level of care will result in altered life or limb morbidity and mortality. 3. Multidisciplinary rounds completed. 4. ABCDE bundle addressed.
--- NOTE | 2019-06-18 19:26 | PDOC PROGRESS REPORT ---
Subjective Progress Note for:: 06/18/19 Subjective:: Patient appears to be continuously improving clinically. She came in with septic shock, pneumonia, acute respiratory failure and acute kidney injury. Blood and sputum cultures grew E. coli. She was hypotensive and has been on vasopressors but the Shaun-Synephrine has been off for the past 24 hours. He has been making urine about 1245 to 2 L daily. Patient is actually just on nasal cannula now. She still has the chest tube. She is awake and is communicating w ell. Today is her first day of trying oral nutrition. She remains to have almost generalized swelling though. She also has continuous diarrhea requiring a rectal tube. Reason For Visit: PNA,SEPTIC SHOCK Physical Exam Vital Signs: Temp Pulse Resp BP Pulse Ox 97.7 F 99 19 122/55 L 99 06/18/19 16:00 06/18/19 18:00 06/18/19 18:00 06/18/19 18:00 06/18/19 18:00 Intake & Output 06/17/19 06/18/19 06/19/19 06:59 06:59 06:59 Intake Total 504 196 600 Output Total 2625 2330 1295 Balance -2121 -2134 -695 Weight 86.3 kg 80 kg 80 kg Exam: General appearance: PRESENT: no acute distress, cooperative, well-developed, well-nourished Head exam: PRESENT: atraumatic, normocephalic Eye exam: PRESENT: conjunctiva pale, PERRLA. ABSENT: scleral icterus Neck exam: ABSENT: JVD Respiratory exam: PRESENT: Diminished breath sounds. Chest tube in place ABSENT: crackles, rales, rhonchi, unlabored, wheezes Cardiovascular exam: PRESENT: Regular rate rhythm -+S1, +S2. ABSENT: diastolic murmur, systolic murmur GI/Abdominal exam: PRESENT: normal bowel sounds, soft. ABSENT: guarding, mass, tenderness Extremities exam: Grade 2 bilateral lower extremity pitting edema, also with bilateral upper extremity edema Neurological exam: PRESENT: alert, awake, oriented to person, place and time. Skin exam: PRESENT: dry, warm, Cardiovascular exam: PRESENT: +S1, +S2 GI/Abdominal exam: PRESENT: normal bowel sounds, soft. ABSENT: organomegaly, tenderness Results Laboratory Results: 06/18/19 03:53 06/18/19 03:53 06/18/19 06/18/19 03:53 03:53 WBC 14.8 H RBC 3.56 L Hgb 9.8 L Hct 29.7 L MCV 83 MCH 27.4 MCHC 32.9 RDW 17.5 H Plt Count 108 L Seg Neutrophils % Not Reportable Sodium 129.2 L Potassium 4.1 Chloride 89 L Carbon Dioxide 34 H Anion Gap 6 BUN 47 H Creatinine 1.69 H Est GFR ( Amer) 37 L Glucose 93 Calcium 8.7 06/05/19 06/05/19 06/08/19 21:52 22:51 01:10 Creatine Kinase Cancelled CK-MB (CK-2) Troponin I Cancelled < 0.012 NT-Pro-B Natriuret Pep Cancelled [id number] H 06/08/19 06/08/19 06/14/19 01:10 02:00 04:40 Creatine Kinase < 20 L < 20 L CK-MB (CK-2) 1.21 Troponin I 0.032 NT-Pro-B Natriuret Pep [id number] H 06/14/19 04:40 Creatine Kinase CK-MB (CK-2) < 0.22 Troponin I < 0.012 NT-Pro-B Natriuret Pep Impressions: KUB X-Ray 06/06/19 00:00 IMPRESSION: Nasogastric tube in the gastric body Femoral line in place on the right Abdomen/Pelvis CT 06/10/19 00:00 IMPRESSION: 1. Extensive lung findings as above. When compared to 06/06/2019, right pleural effusion is slightly progressive and there is a new small left pleural effusion. Consolidation in the right lung has improved. Progressive interstitial infiltrate in the right upper lobe with new patchy interstitial infiltrate in the left upper lobe. 2. Other findings as above, stable. IMPRESSION: 1. Limited abdominal valuation given noncontrast technique, motion and external source artifacts as described. 2. Ascites. No overt bowel or urinary obstruction. 3. Generalized soft tissue edema/anasarca. Chest CT 06/10/19 00:00 IMPRESSION: 1. Extensive lung findings as above. When compared to 06/06/2019, right pleural effusion is slightly progressive and there is a new small left pleural effusion. Consolidation in the right lung has improved. Progressive interstitial infiltrate in the right upper lobe with new patchy interstitial infiltrate in the left upper lobe. 2. Other findings as above, stable. IMPRESSION: 1. Limited abdominal valuation given noncontrast technique, motion and external source artifacts as described. 2. Ascites. No overt bowel or urinary obstruction. 3. Generalized soft tissue edema/anasarca. Head CT 06/11/19 00:00 IMPRESSION: 1. No acute intracranial findings. Thoracentesis Ultrasound 06/11/19 00:00 IMPRESSION: SUCCESSFUL THORACENTESIS USING ULTRASOUND GUIDANCE. Chest X-Ray 06/18/19 00:00 IMPRESSION: 1. Markedly improved aeration of the right upper lung with mild residual opacities. 2. Stable small bore right basilar chest tube. No significant effusion or pneumothorax. Assessment & Plan - Diagnosis (1) Sepsis with acute organ dysfunction and septic shock Qualifiers: Sepsis type: Escherichia coli Severe sepsis acute organ dysfunction type: acute renal failure Acute renal failure type: with acute tubular necrosis Q ualified Code(s): A41.51 - Sepsis due to Escherichia coli [E. coli]; R65.21 - Severe sepsis with septic shock; N17.0 - Acute kidney failure with tubular necrosis Is this a current diagnosis for this admission?: Yes Plan: This is resolving with IV antibiotics. Patient is now currently off pressors. [employer] Worker Head managing. (2) Acute kidney injury (KATHLEEN) with acute tubular necrosis (ATN) Is this a current diagnosis for this admission?: Yes Plan: Likely secondary to septic shock causing ATN. Patient's kidney function continues to improve. She is also nonoliguric. She does not require any renal replacement therapy. Continue current management. Agree with careful low-dose diuresis. Avoid nephrotoxic medications. (3) Acute hyponatremia Is this a current diagnosis for this admission?: Yes Plan: Is most likely secondary to intravascular volume depletion with septic shock. Currently significantly improve with volume resuscitation. (4) E coli bacteremia Is this a current diagnosis for this admission?: Yes Plan: On IV antibiotics. (5) Pneumonia due to Escherichia coli Qualifiers: Laterality: right Lung location: upper lobe of lung Qualified Code(s): J15.5 - Pneumonia due to Escherichia coli Is this a current diagnosis for this admission?: Yes (6) Diarrhea Qualifiers: Diarrhea type: unspecified type Qualified Code(s): R19.7 - Diarrhea, unspecified Is this a current diagnosis for this admission?: Yes Plan: There was a note from the county sheriff with consideration of HUS/TTP in a patient presenting with septic shock, metabolic encephalopathy, and thrombocytopenia associated with a E. coli bacteremia. Lab is being asked to check for this. (7) Thrombocytopenia Is this a current diagnosis for this admission?: Yes Plan: Slowly improving. (8) Anemia Qualifiers: Anemia type: iron deficiency Iron deficiency anemia type: chronic blood loss Qualified Code(s): D50.0 - Iron deficiency anemia secondary to blood loss (chronic) Is this a current diagnosis for this admission?: Yes Plan: Mild. (9) Dehydration Is this a current diagnosis for this admission?: Yes Plan: Resolved. (10) Decubitus ulcer Qualifiers: Pressure injury location: sacral region Pressure injury stage: stage 2 Qualified Code(s): L89.152 - Pressure ulcer of sacral region, stage 2 Is this a current diagnosis for this admission?: Yes - Time Time with patient: 15-25 minutes
[2019-06-18] MEDS: ACETAMINOPHEN 325 MG TABLET PO PRN (22:43)
[2019-06-18] MEDS: LATANOPROST 0.005% OPH SOLN 2.5 ML OU SCH (22:45)
[2019-06-19] MEDS: IPRATROPIUM/ALBUTEROL 0.5-2.5 MG/3 ML AMPUL NEB SCH ×6 (00:35→21:13)
[2019-06-19 04:28] LABS: HEMOGLOBIN 8.8 g/dL (12.0-15.5); MEAN CORPUSCULAR HEMOGLOBIN 27.3 pg (27.0-33.4); MEAN CORPUSCULAR HGB CONC 32.7 g/dL (32.0-36.0); MEAN CORPUSCULAR VOLUME 84 fl (80-97); PLATELET COUNT 142 10^3/uL (150-450); RED BLOOD COUNT 3.23 10^6/uL (3.72-5.28); RED CELL DISTRIBUTION WIDTH 17.7 % (11.5-14.0); WHITE BLOOD COUNT 16.6 10^3/uL (4.0-10.5)
[2019-06-19 04:39] LABS: BLOOD UREA NITROGEN 46 mg/dL (7-20); CALCIUM 8.2 mg/dL (8.4-10.2); GLUCOSE 90 mg/dL (75-110); PHOSPHORUS 4.1 mg/dL (2.5-4.5); POTASSIUM 4.2 mmol/L (3.6-5.0)
[2019-06-19 04:44] LABS: CARBON DIOXIDE 36 mmol/L (22-30); CHLORIDE 95 mmol/L (98-107)
[2019-06-19 04:48] LABS: ANION GAP 3 (5-19)
[2019-06-19 04:50] LABS: ABSOLUTE LYMPHOCYTES# (MANUAL) 0.2 10^3/uL (0.5-4.7); ABSOLUTE MONOCYTES # (MANUAL) 0.3 10^3/uL (0.1-1.4); BASOPHILS % (MANUAL) 0 % (0-2); EOSINOPHILS % (MANUAL) 0 % (0-6); LYMPHOCYTES % (MANUAL) 1 % (13-45); MONOCYTES % (MANUAL) 2 % (3-13); SEGMENTED NEUTROPHILS % (MAN) 97 % (42-78); TOTAL CELLS COUNTED 100
[2019-06-19 04:51] LABS: ANISOCYTOSIS 1+; POIKILOCYTOSIS 1+; TOXIC GRANULATION 1+
[2019-06-19 04:52] LABS: HYPOCHROMASIA SLIGHT; OVALOCYTES SLIGHT; PLATELET COMMENT ADEQUATE; TEAR DROP CELLS SLIGHT
[2019-06-19] MEDS: HYDROCORTISONE SOD SUCCINATE INJ/PF 100 MG/2 ML SDV IV SCH ×3 (06:27→22:13)
--- NOTE | 2019-06-19 08:34 | RADIOLOGY REPORT (SQ) ---
EXAM DESCRIPTION: CHEST SINGLE VIEW COMPLETED DATE/TIME: 06/19/2019 6:54 am REASON FOR STUDY: pleural effusion COMPARISON: 06/18/2019. EXAM PARAMETERS: NUMBER OF VIEWS: One view. TECHNIQUE: Single frontal radiographic view of the chest acquired. RADIATION DOSE: NA LIMITATIONS: None. FINDINGS: LUNGS AND PLEURA: Faint airspace disease in the right lung, unchanged. Mild blunting of t he right costophrenic angle. No pneumothorax. Left lung clear. MEDIASTINUM AND HILAR STRUCTURES: No masses. Contour normal. HEART AND VASCULAR STRUCTURES: Heart normal in size. Normal vasculature. BONES: No acute findings. HARDWARE: Stable right-sided chest tube. Central line. OTHER: No other significant finding. IMPRESSION: STABLE APPEARANCE. NO PNEUMOTHORAX. TECHNICAL DOCUMENTATION: JOB ID: [id number] [employer]- All Rights Reserved Reading location - IP/workstation name: [email or web address]
[2019-06-19] MEDS: DILTIAZEM HCL 30 MG TABLET PO SCH ×2 (10:55→18:43)
[2019-06-19] MEDS: GABAPENTIN 300 MG CAPSULE PO SCH ×2 (10:55→22:13)
[2019-06-19] MEDS: MIDODRINE HCL 5 MG TABLET PO SCH ×3 (10:55→18:43)
[2019-06-19] MEDS: POTASSIUM CHLORIDE 10 MEQ TABLET.ER PO SCH ×2 (10:55→22:12)
[2019-06-19] MEDS: CITALOPRAM HYDROBROMIDE 20 MG TABLET PO SCH (10:56)
[2019-06-19] MEDS: ROPINIROLE HCL 0.25 MG TABLET PO SCH ×2 (10:56→18:43)
[2019-06-19] MEDS: DICYCLOMINE HCL 20 MG TABLET PO SCH ×4 (10:56→22:13)
[2019-06-19] MEDS: FLUTICASONE NASAL SPRAY 50 MCG/SPRY 120 SPRAY/16 GM NASL SCH (10:59)
[2019-06-19] MEDS: FUROSEMIDE INJ/PF 20 MG/2 ML SDV IV SCH ×2 (11:03→22:14)
--- NOTE | 2019-06-19 17:23 | PDOC PROGRESS REPORT ---
Subjective Progress Note for:: 06/19/19 Subjective:: Patient continues to do well. She is responding well to the diuresis with low- dose of IV furosemide. Her urine output for the past 24 hours was 2395 mL. She remains to be normotensive without any pressors. Reason For Visit: PNA,SEPTIC SHOCK Physical Exam Vital Signs: Temp Pulse Resp BP Pulse Ox 97.7 F 105 H 15 137/86 H 98 06/19/19 02:00 06/19/19 10:00 06/19/19 11:00 06/19/19 10:09 06/19/19 11:00 Intake & Output 06/18/19 06/19/19 06/20/19 06:59 06:59 06:59 Intake Total 196 840 Output Total 2330 2525 270 Balance -2134 -1685 -270 Weight 80 kg 81 kg Cardiovascular exam: PRESENT: +S1, +S2 GI/Abdominal exam: PRESENT: normal bowel sounds, soft. ABSENT: organomegaly, tenderness Results Laboratory Results: 06/19/19 04:00 06/19/19 04:00 06/19/19 06/19/19 04:00 04:00 WBC 16.6 H RBC 3.23 L Hgb 8.8 L Hct 27.0 L MCV 84 MCH 27.3 MCHC 32.7 RDW 17.7 H Plt Count 142 L Seg Neutrophils % Not Reportable Sodium 133.8 L Potassium 4.2 Chloride 95 L Carbon Dioxide 36 H Anion Gap 3 L BUN 46 H Creatinine 1.53 H Est GFR ( Amer) 41 L Glucose 90 Calcium 8.2 L Phosphorus 4.1 Magnesium 1.7 06/05/19 06/05/19 06/08/19 21:52 22:51 01:10 Creatine Kinase Cancelled CK-MB (CK-2) Troponin I Cancelled < 0.012 NT-Pro-B Natriuret Pep Cancelled [id number] H 06/08/19 06/08/19 06/14/19 01:10 02:00 04:40 Creatine Kinase < 20 L < 20 L CK-MB (CK-2) 1.21 Troponin I 0.032 NT-Pro-B Natriuret Pep [id number] H 06/14/19 04:40 Creatine Kinase CK-MB (CK-2) < 0.22 Troponin I < 0.012 NT-Pro-B Natriuret Pep Impressions: KUB X-Ray 06/06/19 00:00 IMPRESSION: Nasogastric tube in the gastric body Femoral line in place on the right Abdomen/Pelvis CT 06/10/19 00:00 IMPRESSION: 1. Extensive lung findings as above. When compared to 06/06/2019, right pleural effusion is slightly progressive and there is a new small left pleural effusion. Consolidation in the right lung has improved. Progressive interstitial infiltrate in the right upper lobe with new patchy interstitial infiltrate in the left upper lobe. 2. Other findings as above, stable. IMPRESSION: 1. Limited abdominal valuation given noncontrast technique, motion and external source artifacts as described. 2. Ascites. No overt bowel or urinary obstruction. 3. Generalized soft tissue edema/anasarca. Chest CT 06/10/19 00:00 IMPRESSION: 1. Extensive lung findings as above. When compared to 06/06/2019, right pleural effusion is slightly progressive and there is a new small left pleural effusion. Consolidation in the right lung has improved. Progressive interstitial infiltrate in the right upper lobe with new patchy interstitial infiltrate in the left upper lobe. 2. Other findings as above, stable. IMPRESSION: 1. Limited abdominal valuation given noncontrast technique, motion and external source artifacts as described. 2. Ascites. No overt bowel or urinary obstruction. 3. Generalized soft tissue edema/anasarca. Head CT 06/11/19 00:00 IMPRESSION: 1. No acute intracranial findings. Thoracentesis Ultrasound 06/11/19 00:00 IMPRESSION: SUCCESSFUL THORACENTESIS USING ULTRASOUND GUIDANCE. Chest X-Ray 06/19/19 06:00 IMPRESSION: STABLE APPEARANCE. NO PNEUMOTHORAX. Assessment & Plan - Diagnosis (1) Sepsis with acute organ dysfunction and septic shock Qualifiers: Sepsis type: Escherichia coli Severe sepsis acute organ dysfunction type: acute renal failure Acute renal failure type: with acute tubular necrosis Qualified Code(s): A41.51 - Sepsis due to Escherichia coli [E. coli]; R65.21 - Severe sepsis with septic shock; N17.0 - Acute kidney failure with tubular necrosis Is this a current diagnosis for this admission?: Yes Plan: This is resolving with IV antibiotics. Patient is now currently off pressors. Lurer managing. (2) Acute kidney injury (KATHLEEN) with acute tubular necrosis (ATN) Is this a current diagnosis for this admission?: Yes Plan: Likely secondary to septic shock causing ATN. Patient's kidney function continues to improve. She is also nonoliguric. She does not require any renal replacement therapy. Continue current management. Agree with careful low-dose diuresis. Avoid nephrotoxic medications. (3) Acute hyponatremia Is this a current diagnosis for this admission?: Yes Plan: Is most likely secondary to intravascular volume depletion with septic shock. Currently significantly improved with volume resuscitation. (4) E coli bacteremia Is this a current diagnosis for this admission?: Yes Plan: On IV antibiotics. (5) Pneumonia due to Escherichia coli Qualifiers: Laterality: right Lung location: upper lobe of lung Qualified Code(s): J1 5.5 - Pneumonia due to Escherichia coli Is this a current diagnosis for this admission?: Yes (6) Diarrhea Qualifiers: Diarrhea type: unspecified type Qualified Code(s): R19.7 - Diarrhea, unspecified Is this a current diagnosis for this admission?: Yes Plan: There was a note from the able seaman with consideration of HUS/TTP in a patient presenting with septic shock, metabolic encephalopathy, and thrombocytopenia associated with a E. coli bacteremia. Lab is being asked to check for this. (7) Thrombocytopenia Is this a current diagnosis for this admission?: Yes Plan: Slowly improving. (8) Anemia Qualifiers: Anemia type: iron deficiency Iron deficiency anemia type: chronic blood loss Qualified Code(s): D50.0 - Iron deficiency anemia secondary to blood loss (chronic) Is this a current diagnosis for this admission?: Yes Plan: Mild. (9) Dehydration Is this a current diagnosis for this admission?: Yes Plan: Resolved. (10) Decubitus ulcer Qualifiers: Pressure injury location: sacral region Pressure injury stage: stage 2 Qualified Code(s): L89.152 - Pressure ulcer of sacral region, stage 2 Is this a current diagnosis for this admission?: Yes - Notes Notes: No further intervention or recommendation from nephrology standpoint. I will sign off at this time. The do not hesitate to call us again if we can be of further help. - Time Time with patient: 15-25 minutes
--- NOTE | 2019-06-19 20:17 | PDOC CRITICAL CARE PROG REPORT ---
General Date:: 06/19/19 ICU Day:: 13 Hospital Day:: 13 Resuscitation Status: Full Code Events in the past 12 to 24 Hours:: 06.19.2019: Patient's metabolic and hemodynamic profile have remained non-labile. She is tolerating physical therapy and Occupational Therapy. Her abdominal discomfort has improved. She does state that she has intermittent abdominal discomfort after eating. 06.18.2019:Patient's overall status continues to improve. She is now off Shaun- Synephrine and has remained off for at least 24 hours. She is on supplemental hydrocortisone and Midodrine drain to support her blood pressure. She is tolerating her diet. Review of systems relevant to events:: 06.19.2019: The diarrhea has improved. A peripheral IV was able to be placed under ultrasound guidance by the nighttime XAVI and central venous catheter has been ordered to be removed. Patient sodium has improved and her urine output continues to improve as well as her creatinine. Chest tube has been on waterseal and is now been clamped. No respiratory distress with these maneuvers. 06.18.2019: Patient endorses significant diarrhea prior to admission. She also had abdominal discomfort which is improving. She has had frequent bowel movements since admission. Her sodium, platelets, creatinine, and overall metabolic profile have improved. Reason for ICU Addmission:: PNA, acute respiratory failure, septic shock, need for pressors. - Medications: Medications reviewed and adjusted accordingly: Yes Vasopressors:: Neosynephrine-now off. Midodrine decreased to 5 mg TID Physical Exam Vital Signs: Temp Pulse Resp BP Pulse Ox 97.7 F 90 19 137/76 H 100 06/19/19 16:00 06/19/19 18:00 06/19/19 18:00 06/19/19 18:00 06/19/19 18:00 Intake & Output 06/18/19 06/19/19 06/20/19 06:59 06:59 06:59 Intake Total 196 840 Output Total 8829 0476 877 Balance -2134 -1685 -875 Weight 80 kg 81 kg Weight/Height Weight 81 kg Height 5 ft 6 in General appearance: PRESENT: no acute distress, well-developed, well-nourished Exam: Pleasant older appearing 63-year-old female no active distress appears chronically ill. Eye exam: PRESENT: conjunctiva pink, EOMI, PERRLA. ABSENT: nystagmus, scleral icterus Ear exam: PRESENT: normal external ear exam Mouth exam: PRESENT: moist, neck supple Teeth exam: PRESENT: edentulous Neck exam: ABSENT: carotid bruit, JVD, lymphadenopathy, thyromegaly Respiratory exam: PRESENT: clear to auscultation astrid, unlabored. ABSENT: accessory muscle use, rales, rhonchi, tachypnea, wheezes Cardiovascular exam: PRESENT: RRR. ABSENT: diastolic murmur, rubs, systolic murmur Pulses: ABSENT: normal dorsalis pedis pul - Unable to palpate secondary to edema GI/Abdominal exam: PRESENT: normal bowel sounds, soft. ABSENT: distended, guarding, mass, organolmegaly, rebound, tenderness Rectal exam: PRESENT: deferred Gentrourinary exam: PRESENT: indwelling catheter Extremities exam: PRESENT: pedal edema Musculoskeletal exam: ABSENT: deformity, dislocation, normal inspection Neurological exam: PRESENT: alert, awake, oriented to person, oriented to place, oriented to time, oriented to situation, CN II-XII grossly intact. ABSENT: motor sensory deficit - No focal deficit but weak Psychiatric exam: PRESENT: appropriate affect, normal mood. ABSENT: homicidal ideation, suicidal ideation Focused psych exam: ABSENT: pressured speech, psychomotor agitation, restlessn ess Skin exam: PRESENT: dry, intact, warm. ABSENT: cyanosis, jaundice, rash Tubes/Lines: PRESENT: Chest Tube, Central Line, Other - Rojo catheter Laboratory/Radiographs Laboratory Results: 06/19/19 04:00 06/19/19 04:00 06/19/19 06/19/19 04:00 04:00 WBC 16.6 H RBC 3.23 L Hgb 8.8 L Hct 27.0 L MCV 84 MCH 27.3 MCHC 32.7 RDW 17.7 H Plt Count 142 L Seg Neutrophils % Not Reportable Sodium 133.8 L Potassium 4.2 Chloride 95 L Carbon Dioxide 36 H Anion Gap 3 L BUN 46 H Creatinine 1.53 H Est GFR ( Amer) 41 L Glucose 90 Calcium 8.2 L Phosphorus 4.1 Magnesium 1.7 06/05/19 06/05/19 06/08/19 21:52 22:51 01:10 Creatine Kinase Cancelled CK-MB (CK-2) Troponin I Cancelled < 0.012 NT-Pro-B Natriuret Pep Cancelled [id number] H 06/08/19 06/08/19 06/14/19 01:10 02:00 04:40 Creatine Kinase < 20 L < 20 L CK-MB (CK-2) 1.21 Troponin I 0.032 NT-Pro-B Natriuret Pep [id number] H 06/14/19 04:40 Creatine Kinase CK-MB (CK-2) < 0.22 Troponin I < 0.012 NT-Pro-B Natriuret Pep Impressions: KUB X-Ray 06/06/19 00:00 IMPRESSION: Nasogastric tube in the gastric body Femoral line in place on the right Abdomen/Pelvis CT 06/10/19 00:00 IMPRESSION: 1. Extensive lung findings as above. When compared to 06/06/2019, right pleural effusion is slightly progressive and there is a new small left pleural effusion. Consolidation in the right lung has improved. Progressive interstitial infiltrate in the right upper lobe with new patchy interstitial infiltrate in the left upper lobe. 2. Other findings as above, stable. IMPRESSION: 1. Limited abdominal valuation given noncontrast technique, motion and external source artifacts as described. 2. Ascites. No overt bowel or urinary obstruction. 3. Generalized soft tissue edema/anasarca. Chest CT 06/10/19 00:00 IMPRESSION: 1. Extensive lung findings as above. When compared to 06/06/2019, right pleural effusion is slightly progressive and there is a new small left pleural effusion. Consolidation in the right lung has improved. Progressive interstitial infiltrate in the right upper lobe with new patchy interstitial infiltrate in the left upper lobe. 2. Other findings as above, stable. IMPRESSION: 1. Limited abdominal valuation given noncontrast technique, motion and external source artifacts as described. 2. Ascites. No overt bowel or urinary obstruction. 3. Generalized soft tissue edema/anasarca. Head CT 06/11/19 00:00 IMPRESSION: 1. No acute intracranial findings. Thoracentesis Ultrasound 06/11/19 00:00 IMPRESSION: SUCCESSFUL THORACENTESIS USING ULTRASOUND GUIDANCE. Chest X-Ray 06/19/19 06:00 IMPRESSION: STABLE APPEARANCE. NO PNEUMOTHORAX. All labs, radiographs, diagnostic studies and EKGs were personally reviewed: Yes In addition, reports of radiographic and diagnostic studies were read: Yes Assessment and Plan - Diagnosis (1) Sepsis with acute organ dysfunction and septic shock Qualifiers: Sepsis type: Escherichia coli Severe sepsis acute organ dysfunction type: acute renal failure Acute renal failure type: with acute tubular necrosis Qualified Code(s): A41.51 - Sepsis due to Escherichia coli [E. coli]; R65.21 - Severe sepsis with septic shock; N17.0 - Acute kidney failure with tubular necrosis Is this a current diagnosis for this admission?: Yes Plan: Resolved. Discontinue Midodrine and wean steroids (2) Pneumonia due to Escherichia coli Qualifiers: Laterality: right Lung location: upper lobe of lung Qualified Code(s): J15.5 - Pneumonia due to Escherichia coli Is this a current diagnosis for this admission?: Yes Plan: Improved (3) E coli bacteremia Is this a current diagnosis for this admission?: Yes Plan: 7-10 days of antibiotics. Has slight increase in WBC and repeat blood culture ordered (4) Hypo-osmolar hyponatremia Is this a current diagnosis for this admission?: Yes Plan: Resolving. Continue current therapy. Based on urinary sodium and presentation, appears to be related to [id number] hyponatremia. Now improving. No neurologic sequela (5) Dehydration Is this a current diagnosis for this admission?: Yes Plan: Improved (6) Acute kidney injury (KATHLEEN) with acute tubular necrosis (ATN) Is this a current diagnosis for this admission?: Yes Plan: Improving. Renal service has signed off. Appreciate their care and assistance (7) Acute respiratory failure with hypoxia Is this a current diagnosis for this admission?: Yes Plan: Resolved (8) Acute metabolic encephalopathy Is this a current diagnosis for this admission?: Yes Plan: Resolved (9) Thrombocytopenia Is this a current diagnosis for this admission?: Yes Plan: Continues to improve. Start subcutaneous heparin prophylaxis (10) Acute renal failure Qualifiers: Acute renal failure type: unspecified Qualified Code(s): N17.9 - Acute kidney failure, unspecified Is this a current diagnosis for this admission?: Yes (11) Encephalopathy acute Is this a current diagnosis for this admission?: Yes Plan: Resolved. Related to sepsis (12) Diarrhea Qualifiers: Diarrhea type: unspecified type Qualified Code(s): R19.7 - Diarrhea, unspecified Is this a current diagnosis for this admission?: Yes Plan: Probable cause of hyponatremia and volume loss. May have led to pneumonia and bacteremia Resolved Plan Summary: 06.19.2019: Patient's hemodynamic and physiologic profiles continue to improve. She is now off antibiotics. I have discontinued Midodrine and will continue to wean steroids. She appears chronically ill and debilitated and has significant critical illness deconditioned physiology. We sincerely appreciate the work of the physical therapy and Occupational Therapy services. We will continue diuresis with Lasix and continue to follow her metabolic profile. Hyponatremia has improved and neurologically she appears intact without any evidence of osmotic demyelination syndromes. She no doubt will need rehabilitative care and have asked case management to facilitate this process. As far as her chest tube, which was placed for effusion, we have clamped the chest tube and will evaluate a chest x-ray in the morning. If there is no effusion then will remove chest tube. Her platelets have dramatically improved in parallel with her sepsis. I have evaluated her HIT panel which was negative and have restarted heparin therapy. Patient is suitable for downgrade and will place her on a medical floor. 06.18.2019:Patient's course continues to move in an expected trajectory. Her pneumonia is improving and she only has platelike atelectasis in the right upper lobe. This also could be residual scarring. Her chest tube output has improved and we will consider placement of the chest tube off suction and placed on waterseal. In determining the root cause of this patient's illness we have determined significant findings: Diarrhea with E. coli pneumonia and bacteremia. The suspicion is that the E. coli which appears to be of GI origin resulted in pneumonia leading to bacteremia. Given the dehydration and hyponatremia this also may have contributed to her shock like state. With the above and the addition of thrombocytopenia and atypical E. coli would need to be considered (O157:H7). Routine standard treatment is supportive care however patient had bacteremia and pneumonia requiring treatment. Will ask the lab to check to see if this subtype is present. She does meet qualifying factors for uremic syndrome except that she did not have melanotic stool. There was evidence of petechiae during her initial acute illness. Overall she has revived this index illness but is significantly deconditioned. Will have physical therapy and Occupational Therapy work with the patient. She no doubt will need rehabilitation. Will consider downgrade from ICU status. Chest tube potentially to be removed within the next 24 hours depending on volume drained. Have initiated fluid restriction for the time being and patient is being diuresed from the renal service. Her sodiums have improved. She does have loose stools here in the ICU and a bowel management system has been ordered. In addition I have asked for stool WBCs and C. difficile studies. Although her hypotension has improved she still requires midodrine and steroid supplementation. We will attempt to wean these. Critical Time Critical Time (minutes): 0 - [id number] Level of Care: MEDICAL Anticipated discharge: Acute Rehab Within: within 48 hours -: 1. The care of a critical patient is a dynamic process. This note is a b2b sales representative synopsis but static in nature. The timeframe for treatments given in order is not necessarily the actual time these treatments may have been done. 2. This patient requires critical care secondary to ongoing requirements for therapy not offered or safe outside the critical care environment. Transfer to a lower level of care will result in altered life or limb morbidity and mort ality. 3. Multidisciplinary rounds completed. 4. ABCDE bundle addressed.
[2019-06-19] MEDS: HEPARIN SOD (PORCINE) 5,000 UNIT/ML 1 ML VIAL SUBCUT SCH (22:13)
[2019-06-19] MEDS: LATANOPROST 0.005% OPH SOLN 2.5 ML OU SCH (22:14)
[2019-06-20 04:12] LABS: HEMATOCRIT 27.5 % (36.0-47.0); HEMOGLOBIN 8.9 g/dL (12.0-15.5); MEAN CORPUSCULAR HEMOGLOBIN 27.2 pg (27.0-33.4); MEAN CORPUSCULAR HGB CONC 32.3 g/dL (32.0-36.0); MEAN CORPUSCULAR VOLUME 84 fl (80-97); PLATELET COUNT 186 10^3/uL (150-450); RED BLOOD COUNT 3.26 10^6/uL (3.72-5.28); RED CELL DISTRIBUTION WIDTH 18.1 % (11.5-14.0); WHITE BLOOD COUNT 16.7 10^3/uL (4.0-10.5)
[2019-06-20 04:32] LABS: BLOOD UREA NITROGEN 46 mg/dL (7-20); CALCIUM 8.9 mg/dL (8.4-10.2); CARBON DIOXIDE 37 mmol/L (22-30); CHLORIDE 97 mmol/L (98-107); GLUCOSE 95 mg/dL (75-110); PHOSPHORUS 4.3 mg/dL (2.5-4.5); POTASSIUM 4.3 mmol/L (3.6-5.0)
[2019-06-20 04:37] LABS: ANION GAP 4 (5-19)
[2019-06-20 04:38] LABS: ABSOLUTE MONOCYTES # (MANUAL) 0.2 10^3/uL (0.1-1.4); BASOPHILS % (MANUAL) 0 % (0-2); EOSINOPHILS % (MANUAL) 0 % (0-6); LYMPHOCYTES % (MANUAL) 6 % (13-45); MONOCYTES % (MANUAL) 1 % (3-13); SEGMENTED NEUTROPHILS % (MAN) 93 % (42-78); TOTAL CELLS COUNTED 100
[2019-06-20 04:39] LABS: ANISOCYTOSIS 1+; PLATELET COMMENT ADEQUATE
[2019-06-20 04:41] LABS: OVALOCYTES SLIGHT; TEAR DROP CELLS SLIGHT
[2019-06-20] MEDS: HEPARIN SOD (PORCINE) 5,000 UNIT/ML 1 ML VIAL SUBCUT SCH ×3 (06:35→21:50)
[2019-06-20] MEDS: IPRATROPIUM/ALBUTEROL 0.5-2.5 MG/3 ML AMPUL NEB SCH ×4 (07:37→20:12)
--- NOTE | 2019-06-20 08:36 | RADIOLOGY REPORT (SQ) ---
EXAM DESCRIPTION: CHEST SINGLE VIEW COMPLETED DATE/TIME: 06/20/2019 6:27 am REASON FOR STUDY: Effusion COMPARISON: AP view of the chest from 06/19/2019. EXAM PARAMETERS: NUMBER OF VIEWS: One view. TECHNIQUE: An AP view of the chest was obtained. RADIATION DOSE: NA LIMITATIONS: None. FINDINGS: LUNGS AND PLEURA: The amount of fluid within the right pleural space is unchanged compared to the prior radiograph. There is no pneumothorax or focal consolidation. MEDIASTINUM AND HILAR STRUCTURES: Stable mediastinal and hilar contours. HEART AND VASCULAR STRUCTURES: Stable cardiac silhouette. BONES: No acute findings. HARDWARE: Stable position of the right basilar pleural drainage catheter. The left IJ central venous catheter is no longer in place. OTHER: No other finding. IMPRESSION: The amount of fluid in the right pleural space is unchanged. The position of the right basilar pleural drainage catheter is also unchanged. TECHNICAL DOCUMENTATION: JOB ID: [id number] [employer]- All Rights Reserved Reading location - IP/workstation name: [email or web address]
[2019-06-20] MEDS: CITALOPRAM HYDROBROMIDE 20 MG TABLET PO SCH (09:47)
[2019-06-20] MEDS: POTASSIUM CHLORIDE 10 MEQ TABLET.ER PO SCH (09:48)
[2019-06-20] MEDS: GABAPENTIN 300 MG CAPSULE PO SCH ×2 (09:49→21:49)
[2019-06-20] MEDS: HYDROCORTISONE SOD SUCCINATE INJ/PF 100 MG/2 ML SDV IV SCH (09:49)
[2019-06-20] MEDS: FUROSEMIDE INJ/PF 20 MG/2 ML SDV IV SCH (09:49)
[2019-06-20] MEDS: DILTIAZEM HCL 30 MG TABLET PO SCH ×2 (09:49→18:19)
[2019-06-20] MEDS: DICYCLOMINE HCL 20 MG TABLET PO SCH ×4 (09:50→21:49)
[2019-06-20] MEDS: ROPINIROLE HCL 0.25 MG TABLET PO SCH ×2 (09:50→21:49)
[2019-06-20] MEDS: FLUTICASONE NASAL SPRAY 50 MCG/SPRY 120 SPRAY/16 GM NASL SCH (14:25)
[2019-06-20] MEDS ORDERED: ALBUMIN HUMAN 250 ML IV ONE (18:00)
--- NOTE | 2019-06-20 18:26 | PDOC CRITICAL CARE PROG REPORT ---
General Date:: 06/20/19 ICU Day:: 14 Hospital Day:: 14 Resuscitation Status: Full Code Medical Power of Inspector Experimental Assembly: Son Events in the past 12 to 24 Hours:: 06.20.2019: Patient's chest tube has been clamped throughout the evening. No difficulty breathing and chest x-ray shows no significant effusions. He is breathing comfortably. She is tolerating diet and tolerating physical therapy. 06.19.2019: Patient's metabolic and hemodynamic profile have remained non-labile. She is tolerating physical therapy and Occupational Therapy. Her abdominal discomfort has improved. She does state that she has intermittent abdominal discomfort after eating. 06.18.2019:Patient's overall status continues to improve. She is now off Shaun- Synephrine and has remained off for at least 24 hours. She is on supplemental hydrocortisone and Midodrine drain to support her blood pressure. She is tolerating her diet. Review of systems relevant to events:: 06.20.2019: On examination it is noted the patient has both legs which rotate externally. Says that this is normal and happen after she had fractures that did not heal and were not repaired. This is chronic in nature. Notably her white blood cell count is elevated but has had no fever. She has had good urinary output. Rojo catheter central lines have all been removed. He did have asymptomatic tachycardia but improved with albumin. This was given because on examination she appeared dry and her skin was furrowed. 06.19.2019: The diarrhea has improved. A peripheral IV was able to be placed under ultrasound guidance by the nighttime XAVI and central venous catheter has been ordered to be removed. Patient sodium has improved and her urine output continues to improve as well as her creatinine. Chest tube has been on waterseal and is now been clamped. No respiratory distress with these maneuvers. 06.18.2019: Patient endorses significant diarrhea prior to admission. She also had abdominal discomfort which is improving. She has had frequent bowel movements since admission. Her sodium, platelets, creatinine, and overall metabolic profile have improved. Reason for ICU Addmission:: PNA, acute respiratory failure, septic shock, need for pressors. - Medications: Medications reviewed and adjusted accordingly: Yes Vasopressors:: All vasopressors discontinued. Midodrine and steroids discontinued Physical Exam Vital Signs: Temp Pulse Resp BP Pulse Ox 97.9 F 101 H 18 128/74 H 100 06/20/19 08:00 06/20/19 16:48 06/20/19 16:48 06/20/19 15:10 06/20/19 16:48 Intake & Output 06/19/19 06/20/19 06/21/19 06:59 06:59 06:59 Intake Total 840 Output Total 2525 2225 Balance -1685 -2225 Weight 81 kg 77.8 kg Weight/Height Weight 77.8 kg Height 5 ft 6 in General appearance: PRESENT: no acute distress, cooperative, thin Exam: Pleasant nontoxic older appearing 63-year-old female no active distress bitemporal muscle wasting is noted awake aware x4 Head exam: PRESENT: atraumatic, normocephalic Eye exam: PRESENT: conjunctiva pink, EOMI, PERRLA. ABSENT: nystagmus, scleral icterus Ear exam: PRESENT: normal external ear exam Mouth exam: PRESENT: dry mucosa, neck supple Neck exam: ABSENT: carotid bruit, JVD, lymphadenopathy, thyromegaly Respiratory exam: PRESENT: clear to auscultation astrid, other - Chest tube site has minimal erythema at entrance. No discharge. ABSENT: rales, rhonchi, wheezes Cardiovascular exam: PRESENT: RRR. ABSENT: diastolic murmur, rubs, systolic murmur Pulses: PRESENT: +1 pedal pulses bilateral Vascular exam: PRESENT: normal capillary refill. ABSENT: pallor GI/Abdominal exam: PRESENT: normal bowel sounds, soft. ABSENT: distended, guarding, mass, organolmegaly, rebound, tenderness Rectal exam: PRESENT: deferred Gentrourinary exam: PRESENT: other - Purex external catheter in place Extremities exam: PRESENT: other - Pedal edema is dramatically improved and skin is now furrowed and dry. Pulse now palpable. ABSENT: pedal edema, +1 edema, +2 edema Musculoskeletal exam: PRESENT: deformity - Bilateral external rotation. ABSENT: normal inspection Neurological exam: PRESENT: alert, awake, oriented to person, oriented to place, oriented to time, oriented to situation, CN II-XII grossly intact. ABSENT: motor sensory deficit Psychiatric exam: PRESENT: appropriate affect, normal mood Focused psych exam: ABSENT: pressured speech, psychomotor agitation, restlessness Skin exam: PRESENT: dry, intact. ABSENT: cyanosis, mottled, normal color Tubes/Lines: PRESENT: Chest Tube Laboratory/Radiographs Laboratory Results: 06/20/19 03:57 06/20/19 03:57 06/11/19 06/20/19 06/20/19 03:44 03:57 03:57 WBC 37.5 H* 16.7 H RBC 2.94 L 3.26 L Hgb 8.0 L 8.9 L Hct 24.6 L 27.5 L MCV 84 84 MCH 27.0 27.2 MCHC 32.4 32.3 RDW 18.0 H 18.1 H Plt Count 69 L 186 Seg Neutrophils % Not Reportable Sodium 137.9 Potassium 4.3 Chloride 97 L Carbon Dioxide 37 H Anion Gap 4 L BUN 46 H Creatinine 1.34 H Est GFR ( Amer) 48 L Glucose 95 Calcium 8.9 Phosphorus 4.3 Magnesium 1.8 06/05/19 06/05/19 06/08/19 21:52 22:51 01:10 Creatine Kinase Cancelled CK-MB (CK-2) Troponin I Cancelled < 0.012 NT-Pro-B Natriuret Pep Cancelled [id number] H 06/08/19 06/08/19 06/14/19 01:10 02:00 04:40 Creatine Kinase < 20 L < 20 L CK-MB (CK-2) 1.21 Troponin I 0.032 NT-Pro-B Natriuret Pep [id number] H 06/14/19 04:40 Creatine Kinase CK-MB (CK-2) < 0.22 Troponin I < 0.012 NT-Pro-B Natriuret Pep Impressions: KUB X-Ray 06/06/19 00:00 IMPRESSION: Nasogastric tube in the gastric body Femoral line in place on the right Abdomen/Pelvis CT 06/10/19 00:00 IMPRESSION: 1. Extensive lung findings as above. When compared to 06/06/2019, right pleural effusion is slightly progressive and there is a new small left pleural effusion. Consolidation in the right lung has improved. Progressive interstitial infil trate in the right upper lobe with new patchy interstitial infiltrate in the left upper lobe. 2. Other findings as above, stable. IMPRESSION: 1. Limited abdominal valuation given noncontrast technique, motion and external source artifacts as described. 2. Ascites. No overt bowel or urinary obstruction. 3. Generalized soft tissue edema/anasarca. Chest CT 06/10/19 00:00 IMPRESSION: 1. Extensive lung findings as above. When compared to 06/06/2019, right pleural effusion is slightly progressive and there is a new small left pleural effusion. Consolidation in the right lung has improved. Progressive interstitial infiltrate in the right upper lobe with new patchy interstitial infiltrate in the left upper lobe. 2. Other findings as above, stable. IMPRESSION: 1. Limited abdominal valuation given noncontrast technique, motion and external source artifacts as described. 2. Ascites. No overt bowel or urinary obstruction. 3. Generalized soft tissue edema/anasarca. Head CT 06/11/19 00:00 IMPRESSION: 1. No acute intracranial findings. Thoracentesis Ultrasound 06/11/19 00:00 IMPRESSION: SUCCESSFUL THORACENTESIS USING ULTRASOUND GUIDANCE. Chest X-Ray 06/20/19 06:00 IMPRESSION: The amount of fluid in the right pleural space is unchanged. The position of the right basilar pleural drainage catheter is also unchanged. All labs, radiographs, diagnostic studies and EKGs were personally reviewed: Yes In addition, reports of radiographic and diagnostic studies were read: Yes Assessment and Plan - Diagnosis (1) Sepsis with acute organ dysfunction and septic shock Qualifiers: Sepsis type: Escherichia coli Severe sepsis acute organ dysfunction type: acute renal failure Acute renal failure type: with acute tubular necrosis Qualified Code(s): A41.51 - Sepsis due to Escherichia coli [E. coli]; R65.21 - Severe sepsis with septic shock; N17.0 - Acute kidney failure with tubular necrosis Is this a current diagnosis for this admission?: Yes Plan: Resolved. Discontinued Midodrine and steroids off (2) Pneumonia due to Escherichia coli Qualifiers: Laterality: right Lung location: upper lobe of lung Qualified Code(s): J15.5 - Pneumonia due to Escherichia coli Is this a current diagnosis for this admission?: Yes Plan: Improved. Resolved and chest tube to be removed (3) E coli bacteremia Is this a current diagnosis for this admission?: Yes Plan: Antibiotics now discontinued consistent with guidelines (4) Hypo-osmolar hyponatremia Is this a current diagnosis for this admission?: Yes Plan: Much improved Continue current therapy. Based on urinary sodium and presentation, appears to be related to [id number] hyponatremia. Now improving. No neurologic sequela (5) Dehydration Is this a current diagnosis for this admission?: Yes Plan: Slightly dry today. Albumin given (6) Acute kidney injury (KATHLEEN) with acute tubular necrosis (ATN) Is this a current diagnosis for this admission?: Yes Plan: Improving. Renal service has signed off. Appreciate their care and assistance (7) Acute respiratory failure with hypoxia Is this a current diagnosis for this admission?: Yes (8) Acute metabolic encephalopathy Is this a current diagnosis for this admission?: Yes Plan: Resolved (9) Thrombocytopenia Is this a current diagnosis for this admission?: Yes Plan: Resolved. Start subcutaneous heparin prophylaxis (10) Acute renal failure Qualifiers: Acute renal failure type: unspecified Qualified Code(s): N17.9 - Acute kidney failure, unspecified Is this a current diagnosis for this admission?: Yes (11) Encephalopathy acute Is this a current diagnosis for this admission?: Yes Plan: Resolved. Related to sepsis (12) Diarrhea Qualifiers: Diarrhea type: unspecified type Qualified Code(s): R19.7 - Diarrhea, unspecified Is this a current diagnosis for this admission?: Yes Plan: Probable cause of hyponatremia and volume loss. May have led to pneumonia and bacteremia Resolved Plan Summary: 06.20.2019: Patient continues in an expected trajectory with overall improvement. She has been diuresing quite significantly and now appears to be dry. That being said her creatinine has dramatically improved. I have held the Lasix today because of her tachycardia. Despite having an elevated white count and tachycardia she does not appear to have any sign of sepsis. She has been afebrile her mentation and overall clinical exam is much improved. We have removed her central lines and her Rojo to remove any nidus of potential infection. The chest tube was removed at bedside. Unfortunately the suture did not disengage when clamped and was not cut. There was slight discomfort on removal but chest x-ray shows no sequelae and her pain was only transient and now gone. There was no bleeding. We will continue to follow her chest x-ray to follow for recrudescence of her effusion. This point patient needs to continue rehabilitation therapy. We will hold Lasix for 24 hours. Edema in her legs is dramatically improved to the point that a palpable pulse is now noted and she has furrowing of her skin indicative of dehydration. She is tolerating a diet. Rojo has been removed and a Pleurx catheter is been maintained to prevent skin breakdown. Under consideration for rehabilitation and the case management team is assisting with this. Thrombocytopenia has improved and this was most likely related to sepsis. She has been restarted on heparin without any bleeding or sequelae. We will continue supportive care 06.19.2019: Patient's hemodynamic and physiologic profiles continue to improve. She is now off antibiotics. I have discontinued Midodrine and will continue to wean steroids. She appears chronically ill and debilitated and has significant critical illness deconditioned physiology. We sincerely appreciate the work of the physical t herapy and Occupational Therapy services. We will continue diuresis with Lasix and continue to follow her metabolic profile. Hyponatremia has improved and neurologically she appears intact without any evidence of osmotic demyelination syndromes. She no doubt will need rehabilitative care and have asked case management to facilitate this process. As far as her chest tube, which was placed for effusion, we have clamped the chest tube and will evaluate a chest x-ray in the morning. If there is no effusion then will remove chest tube. Her platelets have dramatically improved in parallel with her sepsis. I have evaluated her HIT panel which was negative and have restarted heparin therapy. Patient is suitable for downgrade and will place her on a medical floor. 06.18.2019:Patient's course continues to move in an expected trajectory. Her pneumonia is improving and she only has platelike atelectasis in the right upper lobe. This also could be residual scarring. Her chest tube output has im proved and we will consider placement of the chest tube off suction and placed on waterseal. In determining the root cause of this patient's illness we have determined significant findings: Diarrhea with E. coli pneumonia and bacteremia. The suspicion is that the E. coli which appears to be of GI origin resulted in pneumonia leading to bacteremia. Given the dehydration and hyponatremia this also may have contributed to her shock like state. With the above and the addition of thrombocytopenia and atypical E. coli would need to be considered (O157:H7). Routine standard treatment is supportive care however patient had bacteremia and pneumonia requiring treatment. Will ask the lab to check to see if this subtype is present. She does meet qualifying factors for uremic syndrome except that she did not have melanotic stool. There was evidence of petechiae during her initial acute illness. Overall she has revived this index illness but is significantly deconditioned. Will have physical therapy and Occupational Therapy work with the patient. She no doubt will need rehabilitation. Will consider downgrade from ICU status. Chest tube potentially to be removed within the next 24 hours depending on volume drained. Have initiated fluid restriction for the time being and patient is being diuresed from the renal service. Her sodiums have improved. She does have loose stools here in the ICU and a bowel management system has been ordered. In addition I have asked for stool WBCs and C. difficile studies. Although her hypotension has improved she still requires midodrine and steroid supplementation. We will attempt to wean these. Critical Time Critical Time (minutes): 0 - [id number], removal of chest tube Level of Care: ICU -: 1. The care of a critical patient is a dynamic process. This note is a sales representative facility services synopsis but static in nature. The timeframe for treatments given in order is not necessarily the actual time these treatments may have been done. 2. This patient requires critical care secondary to ongoing requirements for therapy not offered or safe outside the critical care environment. Transfer to a lower level of care will result in altered life or limb morbidity and mortality. 3. Multidisciplinary rounds completed. 4. ABCDE bundle addressed.
--- NOTE | 2019-06-20 18:37 | RADIOLOGY REPORT (SQ) ---
EXAM DESCRIPTION: CHEST SINGLE VIEW COMPLETED DATE/TIME: 06/20/2019 6:19 pm REASON FOR STUDY: Post chest tube removal COMPARISON: 06/20/2019 EXAM PARAMETERS: NUMBER OF VIEWS: One view. TECHNIQUE: Single frontal radiographic view of the chest acquired. RADIATION DOSE: NA LIMITATIONS: None. FINDINGS: LUNGS AND PLEURA: Slight blunting of the right costophrenic angle. Slight haziness in the right upper lobe. Limited retrocardiac opacification on the left. No pneumothorax. MEDIASTINUM AND HILAR STRUCTURES: No masses. Contour normal. HEART AND VASCULAR STRUCTURES: Heart normal in size. Normal vasculature. BONES: No acute findings. HARDWARE: None in the chest. OTHER: No other significant finding. IMPRESSION: No pneumothorax status post chest tube removal. There may be a minimal residual right p leural effusion. There is slight haziness in the right upper lobe that could represent some fluid in the fissure. Cannot entirely exclude a limited pneumonia. There is airspace disease in the left lo wer lobe, atelectasis versus pneumonia. TECHNICAL DOCUMENTATION: JOB ID: [id number] [email or web address]- All Rights Reserved Reading location - IP/workstation name: [email or web address]
[2019-06-20] MEDS: LATANOPROST 0.005% OPH SOLN 2.5 ML OU SCH (21:50)
[2019-06-21] MEDS ORDERED: IPRATROPIUM/ALBUTEROL 0.5-2.5 MG/3 ML AMPUL NEB ONE (03:14)
--- NOTE | 2019-06-21 03:32 | RADIOLOGY REPORT (SQ) ---
CLINICAL HISTORY: effusion COMPARISON: 06/20/2019. TECHNIQUE: XR CHEST 1 VIEW 06/21/2019 6:00 AM HEALTH SERVICES MANAGER FINDINGS: Cardiac silhouette is normal in size. There is an increasing right upper lobe consolidation. There is a small right pleural effusion. There is no pneumothorax. There are no acute osseous findings. IMPRESSION: Increasing right upper lobe pneumonia.
[2019-06-21 03:59] LABS: HEMATOCRIT 28.3 % (36.0-47.0); HEMOGLOBIN 9.1 g/dL (12.0-15.5); MEAN CORPUSCULAR HEMOGLOBIN 27.4 pg (27.0-33.4); MEAN CORPUSCULAR HGB CONC 32.3 g/dL (32.0-36.0); MEAN CORPUSCULAR VOLUME 85 fl (80-97); PLATELET COUNT 216 10^3/uL (150-450); RED BLOOD COUNT 3.34 10^6/uL (3.72-5.28); RED CELL DISTRIBUTION WIDTH 17.8 % (11.5-14.0); WHITE BLOOD COUNT 26.5 10^3/uL (4.0-10.5)
[2019-06-21 04:00] LABS: BLOOD UREA NITROGEN 39 mg/dL (7-20); CHLORIDE 101 mmol/L (98-107); GLUCOSE 81 mg/dL (75-110); PHOSPHORUS 3.5 mg/dL (2.5-4.5); POTASSIUM 4.3 mmol/L (3.6-5.0)
[2019-06-21 04:07] LABS: CARBON DIOXIDE 39 mmol/L (22-30)
[2019-06-21 04:19] LABS: ANION GAP 1 (5-19)
[2019-06-21 04:39] LABS: ABSOLUTE LYMPHOCYTES# (MANUAL) 2.9 10^3/uL (0.5-4.7); ABSOLUTE MONOCYTES # (MANUAL) 0.8 10^3/uL (0.1-1.4); BASOPHILS % (MANUAL) 0 % (0-2); EOSINOPHILS % (MANUAL) 0 % (0-6); LYMPHOCYTES % (MANUAL) 11 % (13-45); MONOCYTES % (MANUAL) 3 % (3-13); SEGMENTED NEUTROPHILS % (MAN) 86 % (42-78); TOTAL CELLS COUNTED 100
[2019-06-21 04:42] LABS: ANISOCYTOSIS 1+; OVALOCYTES SLIGHT; PLATELET COMMENT ADEQUATE; STOMATOCYTES SLIGHT; TOXIC VACUOLATION PRESENT
[2019-06-21] MEDS: IPRATROPIUM/ALBUTEROL 0.5-2.5 MG/3 ML AMPUL NEB SCH ×4 (07:44→22:23)
[2019-06-21] MEDS: HEPARIN SOD (PORCINE) 5,000 UNIT/ML 1 ML VIAL SUBCUT SCH ×3 (08:37→22:17)
[2019-06-21] MEDS: ROPINIROLE HCL 0.25 MG TABLET PO SCH ×2 (09:47→17:39)
[2019-06-21] MEDS: DICYCLOMINE HCL 20 MG TABLET PO SCH ×4 (09:47→22:18)
[2019-06-21] MEDS: DILTIAZEM HCL 30 MG TABLET PO SCH ×2 (09:47→17:33)
[2019-06-21] MEDS: GABAPENTIN 300 MG CAPSULE PO SCH ×2 (09:47→23:32)
[2019-06-21] MEDS: CITALOPRAM HYDROBROMIDE 20 MG TABLET PO SCH (09:48)
[2019-06-21] MEDS: FLUTICASONE NASAL SPRAY 50 MCG/SPRY 120 SPRAY/16 GM NASL SCH (09:48)
[2019-06-21] MEDS ORDERED: FUROSEMIDE 20 MG TABLET PO SCH (10:00)
[2019-06-21] MEDS ORDERED: MEROPENEM 1 GM in NORMAL SALINE 50 ML IV SCH (12:00)
--- NOTE | 2019-06-21 15:51 | Progress Note ---
Provider Note Provider Note: Patient was seen very briefly on multidisciplinary rounds. Unfortunately due to census and acuity she required transfer to a medical floor before full evaluation by the ICU team. She appears stable for transfer however follow-up items of concern are her white blood cell count and atelectasis of the right lung. I have reintroduced meropenem in case this is a recrudescence of the E. coli organisms. She has been otherwise hemodynamically stable and afebrile. Chest tube had been removed yesterday and x-ray post removal was unremarkable. I have discussed this with the hospitalist team and they will see and evaluate the patient formally today.
--- NOTE | 2019-06-21 16:32 | PDOC PROGRESS REPORT ---
Subjective Progress Note for:: 06/21/19 Reason For Visit: PNA,SEPTIC SHOCK Physical Exam Vital Signs: Temp Pulse Resp BP Pulse Ox 99.0 F 106 H 18 133/86 H 98 06/21/19 10:00 06/21/19 12:32 06/21/19 12:32 06/21/19 10:00 06/21/19 12:32 Intake & Output 06/20/19 06/21/19 06/22/19 06:59 06:59 06:59 Intake Total 240 Output Total 2225 750 250 Balance -2225 -510 -250 Weight 77.8 kg 78.2 kg General appearance: PRESENT: no acute distress, cooperative, thin, well- developed, other - Older than stated age; chronically ill-appearing Head exam: PRESENT: atraumatic, normocephalic Eye exam: PRESENT: conjunctiva pink, EOMI, PERRLA. ABSENT: scleral icterus Ear exam: PRESENT: normal external ear exam Mouth exam: PRESENT: dry mucosa, tongue midline Teeth exam: PRESENT: poor dentation Neck exam: ABSENT: carotid bruit, JVD, lymphadenopathy, thyromegaly Respiratory exam: PRESENT: decreased breath sounds - Bibasilar, symmetrical, unlabored, other - Supplemental oxygen by nasal cannula. ABSENT: rales, rhonchi, wheezes Cardiovascular exam: PRESENT: RRR. ABSENT: diastolic murmur, rubs, systolic murmur Pulses: PRESENT: normal dorsalis pedis pul Vascular exam: PRESENT: normal capillary refill GI/Abdominal exam: PRESENT: normal bowel sounds, soft. ABSENT: distended, guarding, mass, organolmegaly, rebound, tenderness Rectal exam: PRESENT: deferred Extremities exam: PRESENT: full ROM. ABSENT: calf tenderness, clubbing, pedal edema Neurological exam: PRESENT: alert, awake, oriented to person, oriented to place, oriented to time, oriented to situation, CN II-XII grossly intact. ABSENT: motor sensory deficit Psychiatric exam: PRESENT: appropriate affect, normal mood. ABSENT: homicidal ideation, suicidal ideation Skin exam: PRESENT: dry, intact, warm. ABSENT: cyanosis, rash Results Laboratory Results: 06/21/19 03:34 06/21/19 03:34 06/21/19 06/21/19 06/21/19 03:34 03:34 03:34 WBC 26.5 H RBC 3.34 L Hgb 9.1 L Hct 28.3 L MCV 85 MCH 27.4 MCHC 32.3 RDW 17.8 H Plt Count 216 Seg Neutrophils % Not Reportable Sodium 141.1 Potassium 4.3 Chloride 101 Carbon Dioxide 39 H Anion Gap 1 L BUN 39 H Creatinine 1.30 H Est GFR ( Amer) 50 L Glucose 81 Calcium 9.0 Phosphorus 3.5 Magnesium 1.8 C-Reactive Protein 12.3 H 06/05/19 06/05/19 06/08/19 21:52 22:51 01:10 Creatine Kinase Cancelled CK-MB (CK-2) Troponin I Cancelled < 0.012 NT-Pro-B Natriuret Pep Cancelled [id number] H 06/08/19 06/08/19 06/14/19 01:10 02:00 04:40 Creatine Kinase < 20 L < 20 L CK-MB (CK-2) 1.21 Troponin I 0.032 NT-Pro-B Natriuret Pep [id number] H 06/14/19 04:40 Creatine Kinase CK-MB (CK-2) < 0.22 Troponin I < 0.012 NT-Pro-B Natriuret Pep Impressions: KUB X-Ray 06/06/19 00:00 IMPRESSION: Nasogastric tube in the gastric body Femoral line in place on the right Abdomen/Pelvis CT 06/10/19 00:00 IMPRESSION: 1. Extensive lung findings as above. When compared to 06/06/2019, right pleural effusion is slightly progressive and there is a new small left pleural effusion. Consolidation in the right lung has improved. Progressive interstitial infiltrate in the right upper lobe with new patchy interstitial infiltrate in the left upper lobe. 2. Other findings as above, stable. IMPRESSION: 1. Limited abdominal valuation given noncontrast technique, motion and external source artifacts as described. 2. Ascites. No overt bowel or urinary obstruction. 3. Generalized soft tissue edema/anasarca. Chest CT 06/10/19 00:00 IMPRESSION: 1. Extensive lung findings as above. When compared to 06/06/2019, right pleural effusion is slightly progressive and there is a new small left pleural effusion. Consolidation in the right lung has improved. Progressive interstitial infiltrate in the right upper lobe with new patchy interstitial infiltrate in the left upper lobe. 2. Other findings as above, stable. IMPRESSION: 1. Limited abdominal valuation given noncontrast technique, motion and external source artifacts as described. 2. Ascites. No overt bowel or urinary obstruction. 3. Generalized soft tissue edema/anasarca. Head CT 06/11/19 00:00 IMPRESSION: 1. No acute intracranial findings. Thoracentesis Ultrasound 06/11/19 00:00 IMPRESSION: SUCCESSFUL THORACENTESIS USING ULTRASOUND GUIDANCE. Chest X-Ray 06/21/19 06:00 IMPRESSION: Increasing right upper lobe pneumonia. Assessment and Plan - Diagnosis (1) Leukocytosis Qualifiers: Leukocytosis type: unspecified Qualified Code(s): D72.829 - Elevated white blood cell count, unspecified Is this a current diagnosis for this admission?: Yes Plan: Received full course of meropenem for treatment of PNA and E. coli bacteremia. Meropenem was resumed today (06/21/19) by the ICU provide due to significant jump in WBC (16->26). CXR is clear. Patient is afebrile with diminished, but clear, lung sounds, and is maintaining oxygen saturations at 2 L/min. Repeat urinalysis and blood cultures pending. Consider additional Infectious Disease consultation. (2) Pneumonia due to Escherichia coli Qualifiers: Laterality: right Lung location: upper lobe of lung Qualified Code(s): J15.5 - Pneumonia due to Escherichia coli Is this a current diagnosis for this admission?: Yes Plan: Improved. Chest tube to be removed yesterday Follow-up chest x-ray today is benign. Continues on supplemental oxygen via nasal cannula and BiPAP nightly. Receiving scheduled and as needed nebulizer treatments. Received full course of meropenem but was resumed today (06/21/19) do to significant jump in WBC (16->26). Patient is afebrile with diminished, but clear, lung sounds, and is maintaining oxygen saturations at 2 L/min. (3) Acute kidney injury (KATHLEEN) with acute tubular necrosis (ATN) Is this a current diagnosis for this admission?: Yes Plan: Improving; creatinine now 1.30 down from peak of 2.64. BUN today 39. Continue gentle IV fluids. Encourage p.o. fluids. Avoid nephrotoxic medications as able. Strict I&Os Follow-up chemistry. (4) Acute respiratory failure with hypoxia Is this a current diagnosis for this admission?: Yes Plan: Significantly improved. CXR today clear. Continue supplemental oxygen as needed to maintain saturations. BiPAP nightly. Continue scheduled and as needed nebulizer treatment Flonase daily. Chest physiotherapy. Incentive spirometer and flutter valve. (5) Dehydration Is this a current diagnosis for this admission?: Yes Plan: Significantly improved Received albumin yesterday. Continuing gentle IV fluids. Encourage p.o. fluids. (6) Thrombocytopenia Is this a current diagnosis for this admission?: Yes Plan: Resolved. Continue subcutaneous heparin prophylaxis (7) Acute metabolic encephalopathy Is this a current diagnosis for this admission?: Yes Plan: Resolved. (8) Diarrhea Qualifiers: Diarrhea type: unspecified type Qualified Code(s): R19.7 - Diarrhea, unspecified Is this a current diagnosis for this admission?: Yes Plan: Resolved. Probable cause of hyponatremia and volume loss. May be source of bacteremia. (9) Sepsis with acute organ dysfunction and septic shock Qualifiers: Sepsis type: Escherichia coli Severe sepsis acute organ dysfunction type: acute renal failure Acute renal failure type: with acute tubular necrosis Qualified Code(s): A41.51 - Sepsis due to Escherichia coli [E. coli]; R65.21 - Severe sepsis with septic shock; N17.0 - Acute kidney failure with tubular necrosis Is this a current diagnosis for this admission?: Yes Plan: Resolved. Received Midodrine and steroid therapy while in the ICU; these have been weaned off. (10) Hypo-osmolar hyponatremia Is this a current diagnosis for this admission?: Yes Plan: Resolved. Based on urinary sodium and presentation, appears to be related to [id number] hyponatremia. (11) E coli bacteremia Is this a current diagnosis for this admission?: Yes Plan: Received full course of IV abx as guided by Infectious Disease. (12) Debility Is this a current diagnosis for this admission?: Yes Plan: Following prolonged ICU admission. PT/OT consulted. Discharge planning consulted. - Time Time Spent with patient: 35 or more minutes Medications reviewed and adjusted accordingly: Yes Anticipated discharge: SNF Within: within 72 hours
[2019-06-21] MEDS: NORMAL SALINE 1000 ML 1,000 ML IV PRN (17:33)
[2019-06-21] MEDS: MEROPENEM 1 GM in NORMAL SALINE 50 ML IV SCH (17:38)
[2019-06-21] MEDS ORDERED: GABAPENTIN 100 MG CAPSULE ONE (23:19)
[2019-06-22] MEDS: LATANOPROST 0.005% OPH SOLN 2.5 ML OU SCH ×2 (00:03→21:27)
[2019-06-22] MEDS: NORMAL SALINE 1000 ML 1,000 ML IV PRN (04:34)
[2019-06-22 05:09] LABS: HEMATOCRIT 26.5 % (36.0-47.0); HEMOGLOBIN 8.6 g/dL (12.0-15.5); MEAN CORPUSCULAR HEMOGLOBIN 27.7 pg (27.0-33.4); MEAN CORPUSCULAR HGB CONC 32.4 g/dL (32.0-36.0); MEAN CORPUSCULAR VOLUME 85 fl (80-97); PLATELET COUNT 192 10^3/uL (150-450); RED BLOOD COUNT 3.11 10^6/uL (3.72-5.28); RED CELL DISTRIBUTION WIDTH 17.9 % (11.5-14.0); WHITE BLOOD COUNT 16.5 10^3/uL (4.0-10.5)
[2019-06-22] MEDS: MEROPENEM 1 GM in NORMAL SALINE 50 ML IV SCH ×2 (05:31→18:35)
[2019-06-22 05:32] LABS: BLOOD UREA NITROGEN 35 mg/dL (7-20); CALCIUM 8.6 mg/dL (8.4-10.2); CARBON DIOXIDE 38 mmol/L (22-30); CHLORIDE 101 mmol/L (98-107); PHOSPHORUS 3.7 mg/dL (2.5-4.5); POTASSIUM 3.7 mmol/L (3.6-5.0)
[2019-06-22] MEDS: HEPARIN SOD (PORCINE) 5,000 UNIT/ML 1 ML VIAL SUBCUT SCH ×3 (05:32→21:27)
[2019-06-22 05:37] LABS: GLUCOSE 68 mg/dL (75-110)
[2019-06-22 05:42] LABS: ANION GAP 4 (5-19)
[2019-06-22 06:04] LABS: ABSOLUTE MONOCYTES # (MANUAL) 0.2 10^3/uL (0.1-1.4); BASOPHILS % (MANUAL) 0 % (0-2); EOSINOPHILS % (MANUAL) 0 % (0-6); LYMPHOCYTES % (MANUAL) 6 % (13-45); MONOCYTES % (MANUAL) 1 % (3-13); SEGMENTED NEUTROPHILS % (MAN) 93 % (42-78); TOTAL CELLS COUNTED 100
[2019-06-22 06:05] LABS: ANISOCYTOSIS 1+; HYPOCHROMASIA SLIGHT; OVALOCYTES SLIGHT; POIKILOCYTOSIS SLIGHT; SCHISTOCYTES SLIGHT; TEAR DROP CELLS SLIGHT; TOXIC GRANULATION SLIGHT
[2019-06-22 06:06] LABS: PLATELET COMMENT ADEQUATE
[2019-06-22] MEDS: IPRATROPIUM/ALBUTEROL 0.5-2.5 MG/3 ML AMPUL NEB SCH ×4 (07:48→20:11)
--- NOTE | 2019-06-22 08:09 | PDOC PROGRESS REPORT ---
Subjective Progress Note for:: 06/22/19 Subjective:: Spoke with patient today we finally got back the flow cytometry results, there is no evidence of lymphoma or leukemia process, so all of the oncology work-up thus far is negative. Patient was relieved to hear that. I did recommend that within 2 to 3 months when she gets back up to [place] with her son, that they have a repeat CT of the chest to ensure resolution of the lung findings. Reason For Visit: PNA,SEPTIC SHOCK Physical Exam Vital Signs: Temp Pulse Resp BP Pulse Ox 98.6 F 108 H 18 117/58 L 97 06/21/19 22:00 06/22/19 07:48 06/22/19 07:48 06/21/19 22:00 06/22/19 07:48 Intake & Output 06/21/19 06/22/19 06/23/19 06:59 06:59 06:59 Intake Total 240 1100 Output Total 750 750 Balance -510 350 Weight 78.2 kg 73.5 kg General appearance: PRESENT: no acute distress, well-developed, well-nourished Head exam: PRESENT: atraumatic, normocephalic Eye exam: PRESENT: conjunctiva pink, EOMI, PERRLA. ABSENT: scleral icterus Ear exam: PRESENT: normal external ear exam Mouth exam: PRESENT: moist, tongue midline Neck exam: ABSENT: carotid bruit, JVD, lymphadenopathy, thyromegaly Respiratory exam: PRESENT: clear to auscultation astrid. ABSENT: rales, rhonchi, wheezes Cardiovascular exam: PRESENT: RRR. ABSENT: diastolic murmur, rubs, systolic murmur Pulses: PRESENT: normal dorsalis pedis pul Vascular exam: PRESENT: normal capillary refill GI/Abdominal exam: PRESENT: normal bowel sounds, soft. ABSENT: distended, guarding, mass, organolmegaly, rebound, tenderness Rectal exam: PRESENT: deferred Extremities exam: PRESENT: full ROM. ABSENT: calf tenderness, clubbing, pedal edema Neurological exam: PRESENT: alert, awake, oriented to person, oriented to place, oriented to time, oriented to situation, CN II-XII grossly intact. ABSENT: motor sensory deficit Psychiatric exam: PRESENT: appropriate affect, normal mood. ABSENT: homicidal ideation, suicidal ideation Skin exam: PRESENT: dry, intact, warm. ABSENT: cyanosis, rash Results Laboratory Results: 06/22/19 04:43 06/22/19 04:43 06/21/19 06/22/19 06/22/19 03:34 04:43 04:43 WBC 16.5 H RBC 3.11 L Hgb 8.6 L Hct 26.5 L MCV 85 MCH 27.7 MCHC 32.4 RDW 17.9 H Plt Count 192 Seg Neutrophils % Not Reportable Sodium 142.7 Potassium 3.7 Chloride 101 Carbon Dioxide 38 H Anion Gap 4 L BUN 35 H Creatinine 1.02 Est GFR ( Amer) > 60 Glucose 68 L Calcium 8.6 Phosphorus 3.7 Magnesium 1.7 C-Reactive Protein 12.3 H 06/05/19 06/05/19 06/08/19 21:52 22:51 01:10 Creatine Kinase Cancelled CK-MB (CK-2) Troponin I Cancelled < 0.012 NT-Pro-B Natriuret Pep Cancelled [id number] H 06/08/19 06/08/19 06/14/19 01:10 02:00 04:40 Creatine Kinase < 20 L < 20 L CK-MB (CK-2) 1.21 Troponin I 0.032 NT-Pro-B Natriuret Pep [id number] H 06/14/19 04:40 Creatine Kinase CK-MB (CK-2) < 0.22 Troponin I < 0.012 NT-Pro-B Natriuret Pep Impressions: KUB X-Ray 06/06/19 00:00 IMPRESSION: Nasogastric tube in the gastric body Femoral line in place on the right Abdomen/Pelvis CT 06/10/19 00:00 IMPRESSION: 1. Extensive lung findings as above. When compared to 06/06/2019, right pleural effusion is slightly progressive and there is a new small left pleural effusion. Consolidation in the right lung has improved. Progressive interstitial infiltrate in the right upper lobe with new patchy interstitial infiltrate in the left upper lobe. 2. Other findings as above, stable. IMPRESSION: 1. Limited abdominal valuation given noncontrast technique, motion and external source artifacts as described. 2. Ascites. No overt bowel or urinary obstruction. 3. Generalized soft tissue edema/anasarca. Chest CT 06/10/19 00:00 IMPRESSION: 1. Extensive lung findings as above. When compared to 06/06/2019, right pleural effusion is slightly progressive and there is a new small left pleural effusion. Consolidation in the right lung has improved. Progressive interstitial infiltrate in the right upper lobe with new patchy interstitial infiltrate in the left upper lobe. 2. Other findings as above, stable. IMPRESSION: 1. Limited abdominal valuation given noncontrast technique, motion and external source artifacts as described. 2. Ascites. No overt bowel or urinary obstruction. 3. Generalized soft tissue edema/anasarca. Head CT 06/11/19 00:00 IMPRESSION: 1. No acute intracranial findings. Thoracentesis Ultrasound 06/11/19 00:00 IMPRESSION: SUCCESSFUL THORACENTESIS USING ULTRASOUND GUIDANCE. Chest X-Ray 06/21/19 06:00 IMPRESSION: Increasing right upper lobe pneumonia. Assessment & Plan - Diagnosis (1) Lung mass Is this a current diagnosis for this admission?: Yes Plan: Probably secondary to the infection, no evidence of malignancy thus far, recommend repeat CT chest in 3 months. (2) Thrombocytopenia Is this a current diagnosis for this admission?: Yes Plan: Finally resolved, secondary to thrombocytopenia of sepsis/DIC. - Time Time Spent with patient: 35 or more minutes
--- NOTE | 2019-06-22 08:42 | RADIOLOGY REPORT (SQ) ---
EXAM DESCRIPTION: CHEST SINGLE VIEW COMPLETED DATE/TIME: 06/22/2019 8:19 am REASON FOR STUDY: atelectasis COMPARISON: AP view of the chest from 06/21/2019. EXAM PARAMETERS: NUMBER OF VIEWS: One view. TECHNIQUE: An AP view of the chest was obtained. RADIATION DOSE: NA LIMITATIONS: None. FINDINGS: LUNGS AND PLEURA: Unchanged patchy right upper lobe consolidation. The wedge-shaped opaci ty in the right infrahilar region is also unchanged and could represent at a minimum partial collapse of the right middle lobe. There are increased pleural and parenchymal opacities in the right base t hat obscure the contour of the right hemidiaphragm and blunt the right lateral costophrenic sulcus ; these opacities could represent a combination of pleural fluid, atelectasis and/or consolidation. MEDIASTINUM AND HILAR STRUCTURES: Stable mediastinal and hilar contours. HEART AND VASCULAR STRUCTURES: Stable cardiac silhouette. BONES: No acute findings. HARDWARE: None in the chest. OTHER: No other finding. IMPRESSION: Increased pleural and parenchymal opacities in the right base that obscure the contour o f the right hemidiaphragm and blunt the right lateral costophrenic sulcus ; these opacities could rep resent a combination of pleural fluid, atelectasis and/or consolidation. TECHNICAL DOCUMENTATION: JOB ID: [id number] [employer]- All Rights Reserved Reading location - IP/workstation name: [email or web address]
[2019-06-22] MEDS: DILTIAZEM HCL 30 MG TABLET PO SCH ×2 (11:09→18:35)
[2019-06-22] MEDS: CITALOPRAM HYDROBROMIDE 20 MG TABLET PO SCH (11:10)
[2019-06-22] MEDS: ROPINIROLE HCL 0.25 MG TABLET PO SCH ×2 (11:11→18:35)
[2019-06-22] MEDS: DICYCLOMINE HCL 20 MG TABLET PO SCH ×4 (11:11→21:27)
[2019-06-22] MEDS: FLUTICASONE NASAL SPRAY 50 MCG/SPRY 120 SPRAY/16 GM NASL SCH (11:12)
--- NOTE | 2019-06-22 13:30 | PDOC PROGRESS REPORT ---
Subjective Progress Note for:: 06/22/19 Reason For Visit: PNA,SEPTIC SHOCK 06/22/2019 Patient was admitted to the hospital on 06/05/2019 acute respiratory failure, pneumonia, septic shock Physical Exam Vital Signs: Temp Pulse Resp BP Pulse Ox 98.6 F 101 H 16 117/58 L 96 06/21/19 22:00 06/22/19 12:01 06/22/19 12:01 06/21/19 22:00 06/22/19 12:01 Intake & Output 06/21/19 06/22/19 06/23/19 06:59 06:59 06:59 Intake Total 240 1100 120 Output Total 750 750 300 Balance -510 350 -180 Weight 78.2 kg 73.5 kg General appearance: PRESENT: no acute distress, other - Sitting up in bed awake alert talking no complaints Head exam: PRESENT: other - Stage 1 ulcer on the bridge of the nose Respiratory exam: PRESENT: clear to auscultation astrid. ABSENT: rales, rhonchi, wheezes Cardiovascular exam: PRESENT: RRR. ABSENT: diastolic murmur, rubs, systolic murmur Neurological exam: PRESENT: alert, awake, oriented to person, oriented to place, oriented to time, oriented to situation, CN II-XII grossly intact. ABSENT: motor sensory deficit Psychiatric exam: PRESENT: appropriate affect, normal mood. ABSENT: homicidal ideation, suicidal ideation Skin exam: PRESENT: skin tears Results Laboratory Results: 06/22/19 04:43 06/22/19 04:43 06/22/19 06/22/19 04:43 04:43 WBC 16.5 H RBC 3.11 L Hgb 8.6 L Hct 26.5 L MCV 85 MCH 27.7 MCHC 32.4 RDW 17.9 H Plt Count 192 Seg Neutrophils % Not Reportable Sodium 142.7 Potassium 3.7 Chloride 101 Carbon Dioxide 38 H Anion Gap 4 L BUN 35 H Creatinine 1.02 Est GFR ( Amer) > 60 Glucose 68 L Calcium 8.6 Phosphorus 3.7 Magnesium 1.7 06/05/19 06/05/19 06/08/19 21:52 22:51 01:10 Creatine Kinase Cancelled CK-MB (CK-2) Troponin I Cancelled < 0.012 NT-Pro-B Natriuret Pep Cancelled [id number] H 06/08/19 06/08/1920 01:10 02:00 04:40 Creatine Kinase < 20 L < 20 L CK-MB (CK-2) 1.21 Troponin I 0.032 NT-Pro-B Natriuret Pep [id number] H 06/14/19 04:40 Creatine Kinase CK-MB (CK-2) < 0.22 Troponin I < 0.012 NT-Pro-B Natriuret Pep Impressions: KUB X-Ray 06/06/19 00:00 IMPRESSION: Nasogastric tube in the gastric body Femoral line in place on the right Abdomen/Pelvis CT 06/10/19 00:00 IMPRESSION: 1. Extensive lung findings as above. When compared to 06/06/2019, right pleural effusion is slightly progressive and there is a new small left pleural effusion. Consolidation in the right lung has improved. Progressive interstitial infiltrate in the right upper lobe with new patchy interstitial infiltrate in the left upper lobe. 2. Other findings as above, stable. IMPRESSION: 1. Limited abdominal valuation given noncontrast technique, motion and external source artifacts as described. 2. Ascites. No overt bowel or urinary obstruction. 3. Generalized soft tissue edema/anasarca. Chest CT 06/10/19 00:00 IMPRESSION: 1. Extensive lung findings as above. When compared to 06/06/2019, right pleural effusion is slightly progressive and there is a new small left pleural effusion. Consolidation in the right lung has improved. Progressive interstitial infiltrate in the right upper lobe with new patchy interstitial infiltrate in the left upper lobe. 2. Other findings as above, stable. IMPRESSION: 1. Limited abdominal valuation given noncontrast technique, motion and external source artifacts as described. 2. Ascites. No overt bowel or urinary obstruction. 3. Generalized soft tissue edema/anasarca. Head CT 06/11/19 00:00 IMPRESSION: 1. No acute intracranial findings. Thoracentesis Ultrasound 06/11/19 00:00 IMPRESSION: SUCCESSFUL THORACENTESIS USING ULTRASOUND GUIDANCE. Chest X-Ray 06/22/19 06:00 IMPRESSION: Increased pleural and parenchymal opacities in the right base that obscure the contour of the right hemidiaphragm and blunt the right lateral costophrenic sulcus ; these opacities could represent a combination of pleural fluid, atelectasis and/or consolidation. Assessment and Plan - Diagnosis (1) Acute respiratory failure with hypoxia Is this a current diagnosis for this admission?: Yes (2) CHRONC PAIN Is this a current diagnosis for this admission?: Yes (3) E coli bacteremia Is this a current diagnosis for this admission?: Yes (4) Pneumonia due to Escherichia coli Qualifiers: Laterality: right Lung location: upper lobe of lung Qualified Code(s): J15.5 - Pneumonia due to Escherichia coli Is this a current diagnosis for this admission?: Yes (5) Sepsis Qualifiers: Sepsis type: sepsis due to unspecified organism Sepsis acute organ dysfunction status: unspecified Qualified Code(s): A41.9 - Sepsis, unspecified organism Is this a current diagnosis for this admission?: Yes (6) Depression Is this a current diagnosis for this admission?: Yes - Plan Summary Summary: 06/22/2019 Patient has been in the hospital now for approximately 17 days. She was transferred out of the ICU yesterday. Primary problem at this time is the patient had a leukocytosis for unknown reason yesterday and her meropenem was resumed. She had had IV antibiotics for 10 days for her bacteremia and pneumonia previously. Chest x-ray yesterday and today shows a unchanged patchy right upper lobe consolidation. There is also a wedge shaped opacity in the right infrahilar region which could represent a partial collapse of the right middle lobe. Also increased pleural and parenchymal opacities in the right base. First mention of this was from the x-ray yesterday which showed increasing right upper lobe pneumonia. These findings could be the etiology of her increased white count and are definitely the source of her hypoxia White blood cell count on 20 June was 16.7 yesterday it went up to 26.5, over today it is down to 16.5. hemoGlobin stable 8.6 CRP is 12.3 which is slightly high Blood cultures are pending from yesterday however previous recent blood cultures of all showed no growth We will continue the meropenem till blood cultures have been reported out We will order lactic acid level, repeat urinalysis, daily CBCs Certainly patient does not look septic at this time and she is hemodynamically stable - Time Time Spent with patient: 25-34 minutes
[2019-06-22 14:29] LABS: HEMATOCRIT 25.3 % (36.0-47.0); HEMOGLOBIN 8.2 g/dL (12.0-15.5); MEAN CORPUSCULAR HEMOGLOBIN 27.5 pg (27.0-33.4); MEAN CORPUSCULAR HGB CONC 32.4 g/dL (32.0-36.0); MEAN CORPUSCULAR VOLUME 85 fl (80-97); PLATELET COUNT 198 10^3/uL (150-450); RED BLOOD COUNT 2.98 10^6/uL (3.72-5.28); WHITE BLOOD COUNT 15.3 10^3/uL (4.0-10.5)
[2019-06-22 14:48] LABS: ABSOLUTE LYMPHOCYTES# (MANUAL) 0.2 10^3/uL (0.5-4.7); BASOPHILS % (MANUAL) 0 % (0-2); EOSINOPHILS % (MANUAL) 0 % (0-6); LYMPHOCYTES % (MANUAL) 1 % (13-45); MONOCYTES % (MANUAL) 0 % (3-13); PLATELET COMMENT ADEQUATE; PLATELET LARGE PRESENT; SEGMENTED NEUTROPHILS % (MAN) 99 % (42-78); TOTAL CELLS COUNTED 100
[2019-06-22 14:49] LABS: ANISOCYTOSIS 1+
[2019-06-22 14:50] LABS: TOXIC VACUOLATION PRESENT
[2019-06-22 14:53] LABS: BLOOD UREA NITROGEN 33 mg/dL (7-20); CALCIUM 8.6 mg/dL (8.4-10.2); CHLORIDE 101 mmol/L (98-107); GLUCOSE 107 mg/dL (75-110); POTASSIUM 3.8 mmol/L (3.6-5.0)
[2019-06-22 14:58] LABS: CARBON DIOXIDE 38 mmol/L (22-30)
[2019-06-22 14:59] LABS: ANION GAP 3 (5-19)
[2019-06-22] MEDS: GABAPENTIN 300 MG CAPSULE PO SCH ×2 (18:29→21:27)
[2019-06-23] MEDS: MEROPENEM 1 GM in NORMAL SALINE 50 ML IV SCH ×2 (05:26→17:24)
[2019-06-23] MEDS: NORMAL SALINE 1000 ML 1,000 ML IV PRN (05:26)
[2019-06-23] MEDS: HEPARIN SOD (PORCINE) 5,000 UNIT/ML 1 ML VIAL SUBCUT SCH ×3 (05:26→22:10)
[2019-06-23] MEDS: IPRATROPIUM/ALBUTEROL 0.5-2.5 MG/3 ML AMPUL NEB SCH ×4 (08:44→20:27)
[2019-06-23] MEDS: DICYCLOMINE HCL 20 MG TABLET PO SCH ×4 (10:23→22:09)
[2019-06-23] MEDS: CITALOPRAM HYDROBROMIDE 20 MG TABLET PO SCH ×2 (10:23→22:10)
[2019-06-23] MEDS: DILTIAZEM HCL 30 MG TABLET PO SCH ×2 (10:23→17:23)
[2019-06-23] MEDS: ROPINIROLE HCL 0.25 MG TABLET PO SCH ×2 (10:24→17:23)
[2019-06-23] MEDS: GABAPENTIN 300 MG CAPSULE PO SCH ×2 (10:24→22:09)
[2019-06-23] MEDS: FLUTICASONE NASAL SPRAY 50 MCG/SPRY 120 SPRAY/16 GM NASL SCH (10:24)
[2019-06-23] MEDS: LORAZEPAM 1 MG TABLET PO PRN (13:28)
--- NOTE | 2019-06-23 15:48 | PDOC PROGRESS REPORT ---
Subjective Progress Note for:: 06/23/19 Reason For Visit: PNA,SEPTIC SHOCK 06/23/2019 Patient admitted for acute respiratory failure, pneumonia, septic shock. Physical Exam Vital Signs: Temp Pulse Resp BP Pulse Ox 98.0 F 97 22 H 138/71 H 98 06/22/19 23:54 06/23/19 12:46 06/23/19 12:46 06/22/19 23:54 06/23/19 12:49 Intake & Output 06/22/19 06/23/19 06/24/19 06:59 06:59 06:59 Intake Total 1100 2416 Output Total 750 2000 Balance 350 416 Weight 73.5 kg 79.2 kg General appearance: PRESENT: no acute distress - Awake alert talking full sentences, son from [place] is in the room Respiratory exam: PRESENT: clear to auscultation astrid. ABSENT: rales, rhonchi, wheezes Cardiovascular exam: PRESENT: RRR. ABSENT: diastolic murmur, rubs, systolic murmur Neurological exam: PRESENT: alert, awake, oriented to person, oriented to place, oriented to time, oriented to situation, motor sensory deficit - Patient has bi lateral lower extremity weakness Psychiatric exam: PRESENT: appropriate affect, normal mood. ABSENT: homicidal ideation, suicidal ideation Results Laboratory Results: 06/22/19 14:12 06/22/19 14:12 06/05/19 06/05/19 06/08/19 21:52 22:51 01:10 Creatine Kinase Cancelled CK-MB (CK-2) Troponin I Cancelled < 0.012 NT-Pro-B Natriuret Pep Cancelled [id number] H 06/08/19 06/08/19 06/14/19 01:10 02:00 04:40 Creatine Kinase < 20 L < 20 L CK-MB (CK-2) 1.21 Troponin I 0.032 NT-Pro-B Natriuret Pep [id number] H 06/14/19 04:40 Creatine Kinase CK-MB (CK-2) < 0.22 Troponin I < 0.012 NT-Pro-B Natriuret Pep Impressions: KUB X-Ray 06/06/19 00:00 IMPRESSION: Nasogastric tube in the gastric body Femoral line in place on the right Abdomen/Pelvis CT 06/10/19 00:00 IMPRESSION: 1. Extensive lung findings as above. When compared to 06/06/2019, right pleural effusion is slightly progressive and there is a new small left pleural effusion. Consolidation in the right lung has improved. Progressive interstitial infiltrate in the right upper lobe with new patchy interstitial infiltrate in the left upper lobe. 2. Other findings as above, stable. IMPRESSION: 1. Limited abdominal valuation given noncontrast technique, motion and external source artifacts as described. 2. Ascites. No overt bowel or urinary obstruction. 3. Generalized soft tissue edema/anasarca. Chest CT 06/10/19 00:00 IMPRESSION: 1. Extensive lung findings as above. When compared to 06/06/2019, right pleural effusion is slightly progressive and there is a new small left pleural effusion. Consolidation in the right lung has improved. Progressive interstitial infiltrate in the right upper lobe with new patchy interstitial infiltrate in the left upper lobe. 2. Other findings as above, stable. IMPRESSION: 1. Limited abdominal valuation given noncontrast technique, motion and external source artifacts as described. 2. Ascites. No overt bowel or urinary obstruction. 3. Generalized soft tissue edema/anasarca. Head CT 06/11/19 00:00 IMPRESSION: 1. No acute intracranial findings. Thoracentesis Ultrasound 06/11/19 00:00 IMPRESSION: SUCCESSFUL THORACENTESIS USING ULTRASOUND GUIDANCE. Chest X-Ray 06/22/19 06:00 IMPRESSION: Increased pleural and parenchymal opacities in the right base that obscure the contour of the right hemidiaphragm and blunt the right lateral costophrenic sulcus ; these opacities could represent a combination of pleural fluid, atelectasis and/or consolidation. Assessment and Plan - Diagnosis (1) Acute respiratory failure with hypoxia Is this a current diagnosis for this admission?: Yes (2) CHRONC PAIN Is this a current diagnosis for this admission?: Yes (3) E coli bacteremia Is this a current diagnosis for this admission?: Yes (4) Pneumonia due to Escherichia coli Qualifiers: Laterality: right Lung location: upper lobe of lung Qualified Code(s): J15.5 - Pneumonia due to Escherichia coli Is this a current diagnosis for this admission?: Yes (5) Sepsis Qualifiers: Sepsis type: sepsis due to unspecified organism Sepsis acute organ dysfunction status: unspecified Qualified Code(s): A41.9 - Sepsis, unspecified organism Is this a current diagnosis for this admission?: Yes (6) Depression Is this a current diagnosis for this admission?: Yes - Plan Summary Summary: 06/22/2019 Patient has been in the hospital now for approximately 17 days. She was transferred out of the ICU yesterday. Primary problem at this time is the patient had a leukocytosis for unknown reason yesterday and her meropenem was resumed. She had had IV antibiotics for 10 days for her bacteremia and pneumonia previously. Chest x-ray yesterday and today shows a unchanged patchy right upper lobe co nsolidation. There is also a wedge shaped opacity in the right infrahilar region which could represent a partial collapse of the right middle lobe. Also increased pleural and parenchymal opacities in the right base. First mention of this was from the x-ray yesterday which showed increasing right upper lobe pneumonia. These findings could be the etiology of her increased white count and are defi nitely the source of her hypoxia White blood cell count on 20 June was 16.7 yesterday it went up to 26.5, over today it is down to 16.5. hemoGlobin stable 8.6 CRP is 12.3 which is slightly high Blood cultures are pending from yesterday however previous recent blood cultures of all showed no growth We will continue the meropenem till blood cultures have been reported out We will order lactic acid level, repeat urinalysis, daily CBCs Certainly patient does not look septic at this time and she is hemodynamically stable 06/23/2019 Patient's vital signs are stable Labs are stable although they are going to be repeated tomorrow morning Most recent blood cultures are negative Sputum cultures are positive Patient appears to have weakness of both lower extremities. I do not know if this weakness was present prior to coming to the hospital if it occurred while she was in ICU. Could be simply deconditioning and from being in the hospital bed for 2 to 3 weeks now, this could be something new. I have ordered a MRI scan of the brain, increase her Celexa to 20 mg daily since she is complaining of anxiety I spent a lot of time talking to the patient as well as her son today from [place] . - Time Time Spent with patient: 25-34 minutes
[2019-06-23] MEDS: LATANOPROST 0.005% OPH SOLN 2.5 ML OU SCH (22:10)
[2019-06-24] MEDS: LORAZEPAM 1 MG TABLET PO PRN (00:11)
[2019-06-24] MEDS: MEROPENEM 1 GM in NORMAL SALINE 50 ML IV SCH ×2 (05:40→17:44)
[2019-06-24] MEDS: HEPARIN SOD (PORCINE) 5,000 UNIT/ML 1 ML VIAL SUBCUT SCH ×3 (05:41→21:30)
[2019-06-24 05:51] LABS: HEMATOCRIT 25.3 % (36.0-47.0); HEMOGLOBIN 8.2 g/dL (12.0-15.5); MEAN CORPUSCULAR HEMOGLOBIN 27.7 pg (27.0-33.4); MEAN CORPUSCULAR HGB CONC 32.3 g/dL (32.0-36.0); MEAN CORPUSCULAR VOLUME 86 fl (80-97); PLATELET COUNT 213 10^3/uL (150-450); RED BLOOD COUNT 2.95 10^6/uL (3.72-5.28); WHITE BLOOD COUNT 17.7 10^3/uL (4.0-10.5)
[2019-06-24] MEDS: NORMAL SALINE 1000 ML 1,000 ML IV PRN (05:52)
[2019-06-24 06:13] LABS: ANION GAP 6 (5-19); BLOOD UREA NITROGEN 22 mg/dL (7-20); CALCIUM 8.5 mg/dL (8.4-10.2); CARBON DIOXIDE 31 mmol/L (22-30); CHLORIDE 106 mmol/L (98-107); GLUCOSE 79 mg/dL (75-110); POTASSIUM 3.3 mmol/L (3.6-5.0)
[2019-06-24 06:20] LABS: ABSOLUTE LYMPHOCYTES# (MANUAL) 0.5 10^3/uL (0.5-4.7); ABSOLUTE MONOCYTES # (MANUAL) 0.2 10^3/uL (0.1-1.4); BAND NEUTROPHILS % (MANUAL) 1 % (3-5); BASOPHILS % (MANUAL) 0 % (0-2); EOSINOPHILS % (MANUAL) 0 % (0-6); LYMPHOCYTES % (MANUAL) 3 % (13-45); MONOCYTES % (MANUAL) 1 % (3-13); SEGMENTED NEUTROPHILS % (MAN) 95 % (42-78); TOTAL CELLS COUNTED 100
[2019-06-24 06:21] LABS: ANISOCYTOSIS 1+; HYPOCHROMASIA 1+; PLATELET COMMENT ADEQUATE; POIKILOCYTOSIS SLIGHT; POLYCHROMASIA 1+; TEAR DROP CELLS SLIGHT
[2019-06-24] MEDS: IPRATROPIUM/ALBUTEROL 0.5-2.5 MG/3 ML AMPUL NEB SCH ×4 (08:01→19:33)
--- NOTE | 2019-06-24 10:13 | RADIOLOGY REPORT (SQ) ---
EXAM DESCRIPTION: MRI HEAD WITHOUT COMPLETED DATE/TIME: 06/24/2019 9:45 am REASON FOR STUDY: altered mental status, cva? COMPARISON: CT 06/11/2019 TECHNIQUE: Multiplanar imaging includes non-contrasted T1, T2, FLAIR, and diffusion with ADC map seq uences. Images stored on PACS. LIMITATIONS: None. FINDINGS: ANATOMY: No anomalies. Normal vascular flow voids. Pituitary fossa normal. CSF SPACES: Age-appropriate. Mild atrophy and associated prominence. No extra-axial hemorrhage or m ass, however. CEREBRUM: High signal intensity lesions scattered throughout the white matter on FLAIR imaging with d istribution suggesting micro-vascular ischemic changes. No evidence of hemorrhage, mass, or extraaxi al fluid collection. POSTERIOR FOSSA: Mastoid fluid bilaterally, left greater than right. Cerebellum and IAC's unremarkab le. DIFFUSION IMAGING: Negative for acute or sub-acute infarction. ORBITS: No masses. Globes normal. PARANASAL SINUSES: No fluid levels. Mucosa normal. OTHER: No other significant finding. IMPRESSION: 1. Chronic brain changes, small vessel disease and mild atrophy. No recent CVA or acute intracranial abnormality allowing for bilateral mastoid disease. EVIDENCE OF ACUTE STROKE: NO. TECHNICAL DOCUMENTATION: JOB ID: [id number] [employer]- All Rights Reserved Reading location - IP/workstation name: [email or web address]
[2019-06-24] MEDS: DICYCLOMINE HCL 20 MG TABLET PO SCH ×4 (10:16→21:30)
[2019-06-24] MEDS: ROPINIROLE HCL 0.25 MG TABLET PO SCH ×2 (10:16→17:44)
[2019-06-24] MEDS: FLUTICASONE NASAL SPRAY 50 MCG/SPRY 120 SPRAY/16 GM NASL SCH (10:16)
[2019-06-24] MEDS: GABAPENTIN 300 MG CAPSULE PO SCH ×2 (10:16→21:30)
[2019-06-24] MEDS: DILTIAZEM HCL 30 MG TABLET PO SCH ×2 (10:16→17:44)
--- NOTE | 2019-06-24 14:47 | PDOC PROGRESS REPORT ---
Subjective Progress Note for:: 06/24/19 Reason For Visit: PNA,SEPTIC SHOCK 06/24/2019 Acute respiratory failure, pneumonia, septic shock Physical Exam Vital Signs: Temp Pulse Resp BP Pulse Ox 98.2 F 105 H 22 H 117/68 97 06/24/19 08:13 06/24/19 08:13 06/24/19 08:13 06/24/19 08:13 06/24/19 08:13 Intake & Output 06/23/19 06/24/19 06/25/19 06:59 06:59 06:59 Intake Total 2416 1750 Output Total 1999 900 Balance 416 850 Weight 79.2 kg 83.2 kg General appearance: PRESENT: no acute distress Respiratory exam: PRESENT: clear to auscultation astrid. ABSENT: rales, rhonchi, wheezes Cardiovascular exam: PRESENT: RRR. ABSENT: diastolic murmur, rubs, systolic murmur Neurological exam: PRESENT: alert, awake, oriented to person, oriented to place, oriented to time, oriented to situation, motor sensory deficit - Sensory exam is normal in both upper and lower extremities Her exam however reveals significant weakness both lower extremities. Patient is unable to hold up either her right or left leg against gravity. Flexors and quadricep muscles hence are tightened up but are unable to hold the weight of her legs up Psychiatric exam: PRESENT: depressed Results Laboratory Results: 06/24/19 05:32 06/24/19 05:32 06/24/19 06/24/19 05:32 05:32 WBC 17.7 H RBC 2.95 L Hgb 8.2 L Hct 25.3 L MCV 86 MCH 27.7 MCHC 32.3 RDW 18.0 H Plt Count 213 Seg Neutrophils % Not Reportable Sodium 143.0 Potassium 3.3 L Chloride 106 Carbon Dioxide 31 H Anion Gap 6 BUN 22 H Creatinine 0.73 Est GFR ( Amer) > 60 Glucose 79 Calcium 8.5 06/19/19 11:10 Blood Blood Culture - Final NO GROWTH IN 5 DAYS 06/19/19 10:32 Blood Blood Culture - Final NO GROWTH IN 5 DAYS 06/05/19 06/05/19 06/08/19 21:52 22:51 01:10 Creatine Kinase Cancelled CK-MB (CK-2) Troponin I Cancelled < 0.012 NT-Pro-B Natriuret Pep Cancelled [id number] H 06/08/19 06/08/19 06/14/19 01:10 02:00 04:40 Creatine Kinase < 20 L < 20 L CK-MB (CK-2) 1.21 Troponin I 0.032 NT-Pro-B Natriuret Pep [id number] H 06/14/19 04:40 Creatine Kinase CK-MB (CK-2) < 0.22 Troponin I < 0.012 NT-Pro-B Natriuret Pep Impressions: KUB X-Ray 06/06/19 00:00 IMPRESSION: Nasogastric tube in the gastric body Femoral line in place on the right Abdomen/Pelvis CT 06/10/19 00:00 IMPRESSION: 1. Extensive lung findings as above. When compared to 06/06/2019, right pleural effusion is slightly progressive and there is a new small left pleural effusion. Consolidation in the right lung has improved. Progressive interstitial infiltrate in the right upper lobe with new patchy interstitial infiltrate in the left upper lobe. 2. Other findings as above, stable. IMPRESSION: 1. Limited abdominal valuation given noncontrast technique, motion and external source artifacts as described. 2. Ascites. No overt bowel or urinary obstruction. 3. Generalized soft tissue edema/anasarca. Chest CT 06/10/19 00:00 IMPRESSION: 1. Extensive lung findings as above. When compared to 06/06/2019, right pleural effusion is slightly progressive and there is a new small left pleural effusion. Consolidation in the right lung has improved. Progressive interstitial infiltrate in the right upper lobe with new patchy interstitial infiltrate in the left upper lobe. 2. Other findings as above, stable. IMPRESSION: 1. Limited abdominal valuation given noncontrast technique, motion and external source artifacts as described. 2. Ascites. No overt bowel or urinary obstruction. 3. Generalized soft tissue edema/anasarca. Head CT 06/11/19 00:00 IMPRESSION: 1. No acute intracranial findings. Thoracentesis Ultrasound 06/11/19 00:00 IMPRESSION: SUCCESSFUL THORACENTESIS USING ULTRASOUND GUIDANCE. Chest X-Ray 06/22/19 06:00 IMPRESSION: Increased pleural and parenchymal opacities in the right base that obscure the contour of the right hemidiaphragm and blunt the right lateral costophrenic sulcus ; these opacities could represent a combination of pleural fluid, atelectasis and/or consolidation. Head MRI 06/24/19 00:00 IMPRESSION: 1. Chronic brain changes, small vessel disease and mild atrophy. No recent CVA or acute intracranial abnormality allowing for bilateral mastoid disease. EVIDENCE OF ACUTE STROKE: NO. Assessment and Plan - Diagnosis (1) Acute respiratory failure with hypoxia Is this a current diagnosis for this admission?: Yes (2) CHRONC PAIN Is this a current diagnosis for this admission?: Yes (3) E coli bacteremia Is this a current diagnosis for this admission?: Yes (4) Pneumonia due to Escherichia coli Qualifiers: Laterality: right Lung location: upper lobe of lung Qualified Code(s): J15.5 - Pneumonia due to Escherichia coli Is this a current diagnosis for this admission?: Yes (5) Sepsis Qualifiers: Sepsis type: sepsis due to unspecified organism Sepsis acute organ dysfunction status: unspecified Qualified Code(s): A41.9 - Sepsis, unspecified organism Is this a current diagnosis for this admission?: Yes (6) Depression Is this a current diagnosis for this admission?: Yes (7) Weakness Is this a current diagnosis for this admission?: Yes - Plan Summary Summary: 06/22/2019 Patient has been in the hospital now for approximately 17 days. She was transferred out of the ICU yesterday. Primary problem at this time is the patient had a leukocytosis for unknown reason yesterday and her meropenem was resumed. She had had IV antibiotics for 10 days for her bacteremia and pneumonia previously. Chest x-ray yesterday and today shows a unchanged patchy right upper lobe consolidation. There is also a wedge shaped opacity in the right infrahilar region which could represent a partial collapse of the right middle lobe. Also increased pleural and parenchymal opacities in the right base. First mention of this was from the x-ray yesterday which showed increasing right upper lobe pneumonia. These findings could be the etiology of her increased white count and are definitely the source of her hypoxia White blood cell count on 20 June was 16.7 yesterday it went up to 26.5, over today it is down to 16.5. hemoGlobin stable 8.6 CRP is 12.3 which is slightly high Blood cultures are pending from yesterday however previous recent blood cultures of all showed no growth We will continue the meropenem till blood cultures have been reported out We will order lactic acid level, repeat urinalysis, daily CBCs Certainly patient does not look septic at this time and she is hemodynamically stable 06/23/2019 Patient's vital signs are stable Labs are stable although they are going to be repeated tomorrow morning Most recent blood cultures are negative Sputum cultures are positive Patient appears to have weakness of both lower extremities. I do not know if this weakness was present prior to coming to the hospital if it occurred while she was in ICU. Could be simply deconditioning and from being in the hospital bed for 2 to 3 weeks now, this could be something new. I have ordered a MRI scan of the brain, increase her Celexa to 20 mg daily since she is complaining of anxiety I spent a lot of time talking to the patient as well as her son today from [place] 06/24/2019 Temp 98 2,pulse 97 ,blood pressure 117/68 ,O2 sat 97% on 2 L WBCs down to 17,700 potassium is down slightly to 3.3. I will add oral potassium to her medications today MRI of the brain today just shows chronic microvascular ischemic changes, nothing acute. Checked patient very closely concerning her lower extremities today with the nurse in the room. Sensory exam is intact both in the trunk and the lower extremities. Patient seems to have general deconditioning in both lower extremities and pelvis since she has not been out of bed for at least almost 3 weeks now.. Order physical therapy to see her tomorrow for their advice concerning rehabilitation. Continue the meropenem. Repeat portable chest x-ray in a.m. . - Time Time Spent with patient: 25-34 minutes
[2019-06-24] MEDS ORDERED: POTASSIUM CHLORIDE 10 MEQ TABLET.ER PO ONE (16:30)
[2019-06-24] MEDS: CITALOPRAM HYDROBROMIDE 20 MG TABLET PO SCH (21:30)
[2019-06-24] MEDS: LATANOPROST 0.005% OPH SOLN 2.5 ML OU SCH (21:30)
[2019-06-24] MEDS: POTASSIUM CHLORIDE 10 MEQ TABLET.ER PO SCH (21:30)
[2019-06-25] MEDS: HEPARIN SOD (PORCINE) 5,000 UNIT/ML 1 ML VIAL SUBCUT SCH ×3 (05:50→22:24)
[2019-06-25] MEDS: MEROPENEM 1 GM in NORMAL SALINE 50 ML IV SCH ×2 (05:50→17:56)
[2019-06-25] MEDS: NORMAL SALINE 1000 ML 1,000 ML IV PRN (05:54)
[2019-06-25] MEDS: IPRATROPIUM/ALBUTEROL 0.5-2.5 MG/3 ML AMPUL NEB SCH ×4 (08:42→20:03)
[2019-06-25] MEDS: GABAPENTIN 300 MG CAPSULE PO SCH ×2 (10:02→22:24)
[2019-06-25] MEDS: DICYCLOMINE HCL 20 MG TABLET PO SCH ×4 (10:02→22:24)
[2019-06-25] MEDS: ROPINIROLE HCL 0.25 MG TABLET PO SCH ×2 (10:02→17:57)
--- NOTE | 2019-06-25 10:08 | RADIOLOGY REPORT (SQ) ---
EXAM DESCRIPTION: CHEST SINGLE VIEW COMPLETED DATE/TIME: 06/25/2019 9:47 am REASON FOR STUDY: PNEUMONIA COMPARISON: 06/22/2019 EXAM PARAMETERS: NUMBER OF VIEWS: One view. TECHNIQUE: Single frontal radiographic view of the chest acquired. RADIATION DOSE: NA LIMITATIONS: None. FINDINGS: LUNGS AND PLEURA: There is increasing right upper lobe pneumonia. Right pleural effusion right basilar airspace disease is grossly unchanged. MEDIASTINUM AND HILAR STRUCTURES: No masses. Contour normal. HEART AND VASCULAR STRUCTURES: Heart normal in size. Normal vasculature. BONES: No acute findings. HARDWARE: None in the chest. OTHER: No other significant finding. IMPRESSION: Increasing right upper lobe airspace disease consistent with pneumonia. No other signif icant interval change. TECHNICAL DOCUMENTATION: JOB ID: [id number] [employer]- All Rights Reserved Reading location - IP/workstation name: [email or web address]
[2019-06-25] MEDS: POTASSIUM CHLORIDE 10 MEQ TABLET.ER PO SCH ×2 (10:11→22:23)
[2019-06-25] MEDS: DILTIAZEM HCL 30 MG TABLET PO SCH ×2 (10:11→17:58)
[2019-06-25] MEDS: FLUTICASONE NASAL SPRAY 50 MCG/SPRY 120 SPRAY/16 GM NASL SCH (10:12)
[2019-06-25] MEDS ORDERED: VANCOMYCIN HCL 0 MG in DEXTROSE 5%-WATER 250 ML IV NR (12:45)
--- NOTE | 2019-06-25 12:45 | PDOC PROGRESS REPORT ---
Subjective Progress Note for:: 06/25/19 Reason For Visit: PNA,SEPTIC SHOCK 06/25/2019 Patient was admitted to the ICU for acute respiratory failure, pneumonia, septic shock and was transferred to the floor on 21 June Physical Exam Vital Signs: Temp Pulse Resp BP Pulse Ox 98.3 F 105 H 20 141/83 H 97 06/25/19 07:52 06/25/19 12:15 06/25/19 12:15 06/25/19 07:52 06/25/19 12:15 Intake & Output 06/24/19 06/25/19 06/26/19 06:59 06:59 06:59 Intake Total 1750 1340 Output Total 900 Balance 850 1340 Weight 83.2 kg 83.6 kg General appearance: PRESENT: mild distress, thin Respiratory exam: PRESENT: clear to auscultation astrid, decreased breath sounds. ABSENT: rales, rhonchi, wheezes Cardiovascular exam: PRESENT: RRR. ABSENT: diastolic murmur, rubs, systolic murmur Neurological exam: PRESENT: alert, awake, oriented to person, oriented to place, oriented to time, oriented to situation, CN II-XII grossly intact. ABSENT: motor sensory deficit Psychiatric exam: PRESENT: depressed, flat affect Results Laboratory Results: 06/24/19 05:32 06/24/19 05:32 06/19/19 11:10 Blood Blood Culture - Final NO GROWTH IN 5 DAYS 06/19/19 10:32 Blood Blood Culture - Final NO GROWTH IN 5 DAYS 06/05/19 06/05/19 06/08/19 21:52 22:51 01:10 Creatine Kinase Cancelled CK-MB (CK-2) Troponin I Cancelled < 0.012 NT-Pro-B Natriuret Pep Cancelled [id number] H 06/08/19 06/08/19 06/14/19 01:10 02:00 04:40 Creatine Kinase < 20 L < 20 L CK-MB (CK-2) 1.21 Troponin I 0.032 NT-Pro-B Natriuret Pep [id number] H 06/14/19 04:40 Creatine Kinase CK-MB (CK-2) < 0.22 Troponin I < 0.012 NT-Pro-B Natriuret Pep Impressions: KUB X-Ray 06/06/19 00:00 IMPRESSION: Nasogastric tube in the gastric body Femoral line in place on the right Abdomen/Pelvis CT 06/10/19 00:00 IMPRESSION: 1. Extensive lung findings as above. When compared to 06/06/2019, right pleural effusion is slightly progressive and there is a new small left pleural effusion. Consolidation in the right lung has improved. Progressive interstitial infiltrate in the right upper lobe with new patchy interstitial infiltrate in the left upper lobe. 2. Other findings as above, stable. IMPRESSION: 1. Limited abdominal valuation given noncontrast technique, motion and external source artifacts as described. 2. Ascites. No overt bowel or urinary obstruction. 3. Generalized soft tissue edema/anasarca. Chest CT 06/10/19 00:00 IMPRESSION: 1. Extensive lung findings as above. When compared to 06/06/2019, right pleural effusion is slightly progressive and there is a new small left pleural effusion. Consolidation in the right lung has improved. Progressive interstitial infiltrate in the right upper lobe with new patchy interstitial infiltrate in the left upper lobe. 2. Other findings as above, stable. IMPRESSION: 1. Limited abdominal valuation given noncontrast technique, motion and external source artifacts as described. 2. Ascites. No overt bowel or urinary obstruction. 3. Generalized soft tissue edema/anasarca. Head CT 06/11/19 00:00 IMPRESSION: 1. No acute intracranial findings. Thoracentesis Ultrasound 06/11/19 00:00 IMPRESSION: SUCCESSFUL THORACENTESIS USING ULTRASOUND GUIDANCE. Head MRI 06/24/19 00:00 IMPRESSION: 1. Chronic brain changes, small vessel disease and mild atrophy. No recent CVA or acute intracranial abnormality allowing for bilateral mastoid disease. EVIDENCE OF ACUTE STROKE: NO. Chest X-Ray 06/25/19 06:00 IMPRESSION: Increasing right upper lobe airspace disease consistent with pneumonia. No other significant interval change. Assessment and Plan - Diagnosis (1) Acute respiratory failure with hypoxia Is this a current diagnosis for this admission?: Yes (2) CHRONC PAIN Is this a current diagnosis for this admission?: Yes (3) E coli bacteremia Is this a current diagnosis for this admission?: Yes (4) Pneumonia due to Escherichia coli Qualifiers: Laterality: right Lung location: upper lobe of lung Qualified Code(s): J15.5 - Pneumonia due to Escherichia coli Is this a current diagnosis for this admission?: Yes (5) Sepsis Qualifiers: Sepsis type: sepsis due to unspecified organism Sepsis acute organ dysfunction status: unspecified Qualified Code(s): A41.9 - Sepsis, unspecified organism Is this a current diagnosis for this admission?: Yes (6) Depression Is this a current diagnosis for this admission?: Yes (7) Weakness Is this a current diagnosis for this admission?: Yes - Plan Summary Summary: 06/22/2019 Patient has been in the hospital now for approximately 17 days. She was transferred out of the ICU yesterday. Primary problem at this time is the jelena ent had a leukocytosis for unknown reason yesterday and her meropenem was resumed. She had had IV antibiotics for 10 days for her bacteremia and pneumonia previously. Chest x-ray yesterday and today shows a unchanged patchy right upper lobe consolidation. There is also a wedge shaped opacity in the right infrahilar region which could represent a partial collapse of the right middle lobe. Also increased pleural and parenchymal opacities in the right base. First mention of this was from the x-ray yesterday which showed increasing right upper lobe pneumonia. These findings could be the etiology of her increased white count and are definitely the source of her hypoxia White blood cell count on 20 June was 16.7 yesterday it went up to 26.5, over today it is down to 16.5. hemoGlobin stable 8.6 CRP is 12.3 which is slightly high Blood cultures are pending from yesterday however previous recent blood cultures of all showed no growth We will continue the meropenem till blood cultures have been reported out We will order lactic acid level, repeat urinalysis, daily CBCs Certainly patient does not look septic at this time and she is hemodynamically stable 06/23/2019 Patient's vital signs are stable Labs are stable although they are going to be repeated tomorrow morning Most recent blood cultures are negative Sputum cultures are positive Patient appears to have weakness of both lower extremities. I do not know if this weakness was present prior to coming to the hospital if it occurred while she was in ICU. Could be simply deconditioning and from being in the hospital bed for 2 to 3 weeks now, this could be something new. I have ordered a MRI scan of the brain, increase her Celexa to 20 mg daily since she is complaining of anxiety I spent a lot of time talking to the patient as well as her son today from [place] 06/24/2019 Temp 98 2,pulse 97 ,blood pressure 117/68 ,O2 sat 97% on 2 L WBCs down to 17,700 potassium is down slightly to 3.3. I will add oral potassium to her medications today MRI of the brain today just shows chronic microvascular ischemic changes, nothi ng acute. Checked patient very closely concerning her lower extremities today with the nurse in the room. Sensory exam is intact both in the trunk and the lower extremities. Patient seems to have general deconditioning in both lower extremities and pelvis since she has not been out of bed for at least almost 3 weeks now.. Order physical therapy to see her tomorrow for their advice concerning rehabilitation. Continue the meropenem. Repeat portable chest x-ray in a.m. 06/25/2019 Patient remains afebrile, heart rate remains between 101 10 this is fairly consistent leaving the ICU, ever patient had been intubated at that time Blood pressure approximately 140/80 Respirations approximately 20 Patient's oxygen saturations between 90 and 99% on 2 L nasal cannula Chest x-ray today is reviewed by myself and Dr. Hernandez show a possible right upper lobe post obstructive pneumonia. Significantly worse than 2 or [address] the chest has been ordered. I Added vancomycin to her antibiotics She is working with physical therapy concerning her deconditioning to the lower extremities Patient will need to be watched closely for worsening pulmonary condition . - Time Time Spent with patient: 25-34 minutes
[2019-06-25] MEDS: HYDROCODONE/ACETAMINOPHEN 5-325 MG TABLET PO PRN (15:31)
--- NOTE | 2019-06-25 15:37 | RADIOLOGY REPORT (SQ) ---
EXAM DESCRIPTION: CT CHEST WITHOUT COMPLETED DATE/TIME: 06/25/2019 3:06 pm REASON FOR STUDY: post obstructive pneumonia?? COMPARISON: Chest x-ray done earlier the same day, CT chest dated 06/06/2019 and 06/10/2019 TECHNIQUE: CT scan performed of the chest without intravenous contrast. Images reviewed with lung, soft tissue and bone windows. Reconstructed coronal and sagittal MPR images reviewed. All images st ored on PACS. All CT scanners at this facility use dose modulation, iterative reconstruction, and/or weight based d osing when appropriate to reduce radiation dose to as low as reasonably achievable (ALARA). [facility]: Dose Right [facility]: CareDose [facility]: Dose Right [facility]: Teradose 4D [facility]: Smart Juice Wireless RADIATION DOSE: CT Rad equipment meets quality standard of care and radiation dose reduction techniq ues were employed. CTDIvol: 10.6 mGy. DLP: 390 mGy-cm. mGy. LIMITATIONS: No technical limitations. FINDINGS: LUNGS AND PLEURA: Persistent extensive right upper lobe airspace disease with numerous air bronchograms. Right-sided pleural effusion has significantly increased in size. There is partial c ollapse of the right lower lobe which is not significantly changed from prior study. There is a mode rate left-sided pleural effusion new from prior study. HILAR AND MEDIASTINAL STRUCTURES: No identified masses or abnormal nodes. No obvious aneurysm. HEART AND VASCULAR STRUCTURES: No aneurysm. No pericardial effusion. UPPER ABDOMEN: No significant findings. Limited exam. THYROID AND OTHER SOFT TISSUES: No masses. No adenopathy. BONES: No significant finding. HARDWARE: None in the chest. OTHER: No other significant findings. IMPRESSION: 1. Mild improvement aeration in the right upper lobe. There is persistent dense consol idation consistent with pneumonia. Lack of IV contrast limits evaluation for soft tissue masses. 2. Increasing right-sided pleural effusion. 3. New moderate size left pleural effusion. TECHNICAL DOCUMENTATION: JOB ID: [id number] Quality ID # [id number]: Final reports with documentation of one or more dose reduction techniques (e.g., Au tomated exposure control, adjustment of the mA and/or kV according to patient size, use of iterative reconstruction technique) 2010 [employer]- All Rights Reserved Reading location - IP/workstation name: [email or web address]
[2019-06-25] MEDS: VANCOMYCIN HCL 1,250 MG in DEXTROSE 5%-WATER 250 ML IV SCH (16:15)
[2019-06-25] MEDS: CITALOPRAM HYDROBROMIDE 20 MG TABLET PO SCH (22:24)
[2019-06-25] MEDS: LATANOPROST 0.005% OPH SOLN 2.5 ML OU SCH (22:25)
[2019-06-26] MEDS: LORAZEPAM 1 MG TABLET PO PRN (03:06)
[2019-06-26] MEDS: VANCOMYCIN HCL 1,250 MG in DEXTROSE 5%-WATER 250 ML IV SCH ×2 (04:54→14:59)
[2019-06-26] MEDS: HEPARIN SOD (PORCINE) 5,000 UNIT/ML 1 ML VIAL SUBCUT SCH ×3 (05:51→22:19)
[2019-06-26] MEDS: MEROPENEM 1 GM in NORMAL SALINE 50 ML IV SCH ×2 (05:51→17:26)
[2019-06-26] MEDS: IPRATROPIUM/ALBUTEROL 0.5-2.5 MG/3 ML AMPUL NEB SCH ×4 (08:44→20:49)
[2019-06-26] MEDS: FLUTICASONE NASAL SPRAY 50 MCG/SPRY 120 SPRAY/16 GM NASL SCH (09:30)
[2019-06-26] MEDS: DILTIAZEM HCL 30 MG TABLET PO SCH ×2 (09:30→17:25)
[2019-06-26] MEDS: POTASSIUM CHLORIDE 10 MEQ TABLET.ER PO SCH ×2 (09:30→22:18)
[2019-06-26] MEDS: HYDROCODONE/ACETAMINOPHEN 5-325 MG TABLET PO PRN (09:30)
[2019-06-26] MEDS: GABAPENTIN 300 MG CAPSULE PO SCH ×2 (09:30→22:18)
[2019-06-26] MEDS: ROPINIROLE HCL 0.25 MG TABLET PO SCH ×2 (09:30→17:25)
[2019-06-26] MEDS: DICYCLOMINE HCL 20 MG TABLET PO SCH ×4 (09:30→22:18)
--- NOTE | 2019-06-26 14:57 | PDOC PROGRESS REPORT ---
Subjective Progress Note for:: 06/26/19 Subjective:: The patient is a 63-year-old female with a past medical history of non-STEMI, COPD, anemia, opiate dependent chronic pain, polypharmacy, depression, and substance abuse who was admitted 06/06/2019 to the ICU for septic shock secondary to community-acquired pneumonia. Patient was seen on morning rounds. She was found resting in bed, comfortably, on BiPAP. She appears to be older than stated age, chronically ill, and quite debilitated. Upon entering the room, the patient was found to be sleeping soundly. She woke briefly when I set her name (open her eyes and nodded her head when I confirmed her name) but then quickly went back to sleep. ROS is therefore limited. No concerns per nursing. Reason For Visit: PNA,SEPTIC SHOCK Physical Exam Vital Signs: Temp Pulse Resp BP Pulse Ox 97.9 F 104 H 16 143/88 H 97 06/26/19 12:00 06/26/19 12:00 06/26/19 12:00 06/26/19 12:00 06/26/19 12:00 Intake & Output 06/25/19 06/26/19 06/27/19 06:59 06:59 06:59 Intake Total 1340 1303 640 Balance 1340 1303 640 Weight 83.6 kg 83.7 kg General appearance: PRESENT: no acute distress, disheveled, well-developed, well-nourished, other - Older than stated age, chronically ill-appearing Head exam: PRESENT: atraumatic, normocephalic Eye exam: PRESENT: conjunctiva pink, EOMI, PERRLA. ABSENT: scleral icterus Mouth exam: PRESENT: moist, tongue midline Teeth exam: PRESENT: poor dentation Respiratory exam: PRESENT: clear to auscultation astrid, symmetrical, unlabored, other - Currently on BiPAP. ABSENT: rales, rhonchi, wheezes Cardiovascular exam: PRESENT: RRR, +S1, +S2. ABSENT: diastolic murmur, rubs, systolic murmur Pulses: PRESENT: normal dorsalis pedis pul Vascular exam: PRESENT: normal capillary refill Rectal exam: PRESENT: deferred Extremities exam: PRESENT: full ROM. ABSENT: calf tenderness, clubbing, pedal edema Neurological exam: PRESENT: alert, awake, CN II-XII grossly intact, other - Sleeping soundly. ABSENT: motor sensory deficit Skin exam: PRESENT: dry, intact, warm. ABSENT: cyanosis, rash Results Laboratory Results: 06/24/19 05:32 06/24/19 05:32 06/05/19 06/05/19 06/08/19 21:52 22:51 01:10 Creatine Kinase Cancelled CK-MB (CK-2) Troponin I Cancelled < 0.012 NT-Pro-B Natriuret Pep Cancelled [id number] H 06/08/19 06/08/19 06/14/19 01:10 02:00 04:40 Creatine Kinase < 20 L < 20 L CK-MB (CK-2) 1.21 Troponin I 0.032 NT-Pro-B Natriuret Pep [id number] H 06/14/19 04:40 Creatine Kinase CK-MB (CK-2) < 0.22 Troponin I < 0.012 NT-Pro-B Natriuret Pep Impressions: KUB X-Ray 06/06/19 00:00 IMPRESSION: Nasogastric tube in the gastric body Femoral line in place on the right Abdomen/Pelvis CT 06/10/19 00:00 IMPRESSION: 1. Extensive lung findings as above. When compared to 06/06/2019, right pleural effusion is slightly progressive and there is a new small left pleural effusion. Consolidation in the right lung has improved. Progressive interstitial infiltrate in the right upper lobe with new patchy interstitial infiltrate in t he left upper lobe. 2. Other findings as above, stable. IMPRESSION: 1. Limited abdominal valuation given noncontrast technique, motion and external source artifacts as described. 2. Ascites. No overt bowel or urinary obstruction. 3. Generalized soft tissue edema/anasarca. Head CT 06/11/19 00:00 IMPRESSION: 1. No acute intracranial findings. Thoracentesis Ultrasound 06/11/19 00:00 IMPRESSION: SUCCESSFUL THORACENTESIS USING ULTRASOUND GUIDANCE. Head MRI 06/24/19 00:00 IMPRESSION: 1. Chronic brain changes, small vessel disease and mild atrophy. No recent CVA or acute intracranial abnormality allowing for bilateral mastoid disease. EVIDENCE OF ACUTE STROKE: NO. Chest CT 06/25/19 00:00 IMPRESSION: 1. Mild improvement aeration in the right upper lobe. There is persistent dense consolidation consistent with pneumonia. Lack of IV contrast limits evaluation for soft tissue masses. 2. Increasing right-sided pleural effusion. 3. New moderate size left pleural effusion. Chest X-Ray 06/25/19 06:00 IMPRESSION: Increasing right upper lobe airspace disease consistent with pneumonia. No other significant interval change. Assessment and Plan - Diagnosis (1) Leukocytosis Qualifiers: Leukocytosis type: unspecified Qualified Code(s): D72.829 - Elevated white blood cell count, unspecified Is this a current diagnosis for this admission?: Yes Plan: Now trending up. Received full course of meropenem for treatment of PNA and E. coli bacteremia. Meropenem was resumed (06/21/19) by the ICU provide due to significant jump in WBC (16->26). Follow up CXR and Chest CT shows reconsolidation of RUL. Vancomycin resumed yesterday (06/25/18) Will ask for Infectious Disease consultation given recurrent pneumonia and prolonged use of Meropenem (2) Pneumonia due to Escherichia coli Qualifiers: Laterality: right Lung location: upper lobe of lung Qualified Code(s): J15.5 - Pneumonia due to Escherichia coli Is this a current diagnosis for this admission?: Yes Plan: Recurrent; now with RUL PNA. Continues on supplemental oxygen via nasal cannula and BiPAP as needed Receiving scheduled and as needed nebulizer treatments. Received full course of meropenem but was resumed (06/21/19) do to significant jump in WBC (16->26). Vancomycin added yesterday (06/25/18). Will ask Dr. Guthrie to evaluate patient who remains BiPAP dependent with recurrent antibiotics despite aggressive antibiotics (?post obstructive). Have consulted Infectious Disease. Pulmonary toilet with IS, Flutter, and chest physiotherapy. (3) Acute respiratory failure with hypoxia Is this a current diagnosis for this admission?: Yes Plan: Secondary to right upper lobe pneumonia. Evaluation management as above. (4) Acute kidney injury (KATHLEEN) with acute tubular necrosis (ATN) Is this a current diagnosis for this admission?: Yes Plan: Resolved. Continue gentle IV fluids. Encourage p.o. fluids. Avoid nephrotoxic medications as able. Strict I&Os Follow-up chemistry. (5) Dehydration Is this a current diagnosis for this admission?: Yes Plan: Resolved. (6) Thrombocytopenia Is this a current diagnosis for this admission?: Yes Plan: Resolved. Continue subcutaneous heparin prophylaxis (7) Acute metabolic encephalopathy Is this a current diagnosis for this admission?: Yes Plan: Resolved. (8) Diarrhea Qualifiers: Diarrhea type: unspecified type Qualified Code(s): R19.7 - Diarrhea, unspecified Is this a current diagnosis for this admission?: Yes Plan: Resolved. Probable cause of hyponatremia and volume loss. May be source of bacteremia. (9) Sepsis with acute organ dysfunction and septic shock Qualifiers: Sepsis type: Escherichia coli Severe sepsis acute organ dysfunction type: acute renal failure Acute renal failure type: with acute tubular necrosis Qualified Code(s): A41.51 - Sepsis due to Escherichia coli [E. coli]; R65.21 - Severe sepsis with septic shock; N17.0 - Acute kidney failure with tubular necrosis Is this a current diagnosis for this admission?: Yes Plan: Resolved. Received Midodrine and steroid therapy while in the ICU; these have been weaned off. (10) Hypo-osmolar hyponatremia Is this a current diagnosis for this admission?: Yes Plan: Resolved. Based on urinary sodium and presentation, appears to be related to [id number] hyponatremia. (11) E coli bacteremia Is this a current diagnosis for this admission?: Yes Plan: Received full course of IV abx as guided by Infectious Disease. (12) Debility Is this a current diagnosis for this admission?: Yes Plan: Following prolonged ICU admission. PT/OT consulted. Discharge planning consulted. - Time Time Spent with patient: 25-34 minutes Medications reviewed and adjusted accordingly: Yes Anticipated discharge: SNF
[2019-06-26] MEDS: CITALOPRAM HYDROBROMIDE 20 MG TABLET PO SCH (22:18)
[2019-06-26] MEDS: LATANOPROST 0.005% OPH SOLN 2.5 ML OU SCH (22:59)
[2019-06-27] MEDS: VANCOMYCIN HCL 1,250 MG in DEXTROSE 5%-WATER 250 ML IV SCH ×2 (03:27→16:19)
[2019-06-27] MEDS: HYDROCODONE/ACETAMINOPHEN 5-325 MG TABLET PO PRN ×3 (03:32→17:59)
[2019-06-27] MEDS: LORAZEPAM 1 MG TABLET PO PRN (03:32)
[2019-06-27] MEDS: MEROPENEM 1 GM in NORMAL SALINE 50 ML IV SCH ×2 (05:38→17:56)
[2019-06-27] MEDS: HEPARIN SOD (PORCINE) 5,000 UNIT/ML 1 ML VIAL SUBCUT SCH ×3 (05:39→21:21)
[2019-06-27 05:47] LABS: HEMATOCRIT 26.3 % (36.0-47.0); HEMOGLOBIN 8.5 g/dL (12.0-15.5); MEAN CORPUSCULAR HEMOGLOBIN 27.8 pg (27.0-33.4); MEAN CORPUSCULAR HGB CONC 32.4 g/dL (32.0-36.0); MEAN CORPUSCULAR VOLUME 86 fl (80-97); PLATELET COUNT 278 10^3/uL (150-450); RED BLOOD COUNT 3.06 10^6/uL (3.72-5.28); RED CELL DISTRIBUTION WIDTH 17.9 % (11.5-14.0)
[2019-06-27 06:02] LABS: ANION GAP 7 (5-19); BLOOD UREA NITROGEN 14 mg/dL (7-20); CALCIUM 8.8 mg/dL (8.4-10.2); CARBON DIOXIDE 27 mmol/L (22-30); CHLORIDE 109 mmol/L (98-107); GLUCOSE 78 mg/dL (75-110); POTASSIUM 3.9 mmol/L (3.6-5.0)
[2019-06-27 06:20] LABS: ABSOLUTE LYMPHOCYTES# (MANUAL) 0.5 10^3/uL (0.5-4.7); ABSOLUTE MONOCYTES # (MANUAL) 0.9 10^3/uL (0.1-1.4); BASOPHILS % (MANUAL) 0 % (0-2); EOSINOPHILS % (MANUAL) 1 % (0-6); LYMPHOCYTES % (MANUAL) 3 % (13-45); MONOCYTES % (MANUAL) 6 % (3-13); SEGMENTED NEUTROPHILS % (MAN) 90 % (42-78); TOTAL CELLS COUNTED 100
[2019-06-27 06:26] LABS: ANISOCYTOSIS 1+; OVALOCYTES SLIGHT; PLATELET COMMENT ADEQUATE; POIKILOCYTOSIS SLIGHT; SCHISTOCYTES SLIGHT; TEAR DROP CELLS SLIGHT; TOXIC GRANULATION 1+
[2019-06-27] MEDS: NORMAL SALINE 1000 ML 1,000 ML IV PRN (06:47)
[2019-06-27] MEDS: IPRATROPIUM/ALBUTEROL 0.5-2.5 MG/3 ML AMPUL NEB SCH ×4 (07:53→21:04)
[2019-06-27] MEDS: POTASSIUM CHLORIDE 10 MEQ TABLET.ER PO SCH ×2 (09:54→21:20)
[2019-06-27] MEDS: FLUTICASONE NASAL SPRAY 50 MCG/SPRY 120 SPRAY/16 GM NASL SCH (09:54)
[2019-06-27] MEDS: ROPINIROLE HCL 0.25 MG TABLET PO SCH ×2 (09:54→17:59)
[2019-06-27] MEDS: GABAPENTIN 300 MG CAPSULE PO SCH ×2 (09:54→21:20)
[2019-06-27] MEDS: DICYCLOMINE HCL 20 MG TABLET PO SCH ×4 (09:54→21:20)
[2019-06-27] MEDS: DILTIAZEM HCL 30 MG TABLET PO SCH ×2 (09:54→17:56)
[2019-06-27 16:06] LABS: VANCOMYCIN,TROUGH 24.4 ug/mL (5.0-20.0)
--- NOTE | 2019-06-27 17:04 | Progress Note ---
Provider Note Provider Note: ID Telephone Consultation Note Asked to review patient's chart. Pt not seen or examined. Per notes, pt is a [id number]-doe-woman who was admitted ot the ICU on 06/06/19 with acute respiratory failure and septic shock secondary to E coli bacteremia and RML/RUL pneumonia. She has a PMH including COPD, chronic pain syndrome, duodenal ulcer and recent hospitalization with GI bleed. She required vasopressor support and intubation earlier in her hospital course. She also had KATHLEEN with ATN among other complications. Some relevant images and studies have included: BCx 2 sets on 06/05: chamorro-susceptible E coli in all 4 bottles Tracheal aspirate: E coli, C albicans/dublinensis CT chest 06/06: Dense RUL and RML pneumonia, moderate R pleural effusion Pleural fluid 06/08: 680 mL straw colored, LDH 837, total protein 1.5, no bacteria on Gram stain, culture without growth BCx 06/08: negative Pleural fluid 06/11: straw colored, WBC 2156, 90% PMNs, LDH 218, Total protein 1.4, no bacteria on Gram stain, culture without growth On 06/20/19 she had improved sufficiently to allow transfer to the floor. In terms of antibiotics active against the E coli, she was treated for 12 days with Zosyn starting on 06/05-06/06, then cefepime 06/06-06/10, then meropenem 06/10 to 06/17/19. Pt has had a leukocytosis with WBC count as high as 42.7k on 06/10, which has trended down to the 20s and now 15-17k range. On 06/21/19 meropenem was restarted in response to an increase in WBC count from 16 to 26, which returned to 16k the next day. Repeat CT chest on 06/25/19 showed persistent dense consolidation in RUL and increasing R sided pleural effusion and new moderate L sided effusion. Pt has no fever. She remains extubated and off of vasopressor support. Impression/Recommendations E coli bacteremia, R sided pneumonia, and complicated parapneumonic effusion - I was asked by Pharmacy to comment on duration of antibiotics. In general, duration of therapy for GNR bacteremia can be as short as 7 days or 7-10 days based on observational studies and an RCT. For uncomplicated pneumonia a duration of 7 days should suffice. For post-obstructive pneumonia, there is no clear optimal duration of therapy, but I would generally aim for 10-14 days, which the patient has completed. The emphasis should be on identifying and alleviating the obstruction. Without addressing the underlying anatomical problem, this will not fully resolve even with continued antibiotics, which are not entirely benign. - Mainstay for treatment of complicated parapneumonic effusion is drainage. If there is an empyema (katy pus, cultures positive from pleural fluid or positive Gram stain), addition of antibiotics for about 3 weeks on top of drainage is typical. I do not find evidence upon chart review to suggest this is an empyema. At this point she has received antibiotics for about 18 days. - Continued leukocytosis is not necessarily evidence of continued infectious process; it can be a reflection of physiologic stress and inflammation in general- Most recent CT scan of the chest shows b/l pleural effusions, which may require diuresis or drainage (depending on likely etiology and volume status of patient). Defer to hospitalist service and Pulmonary regarding management. - No MRSA was isolated. Would discontinue IV vancomycin. - Recommend stopping meropenem and observing patient. Jeff Nicolas MD [facility] pager [phone]
--- NOTE | 2019-06-27 18:11 | PDOC PROGRESS REPORT ---
Subjective Progress Note for:: 06/27/19 Subjective:: The patient is a 63-year-old female with a past medical history of non-STEMI, COPD, anemia, opiate dependent chronic pain, polypharmacy, depression, and substance abuse who was admitted 06/06/2019 to the ICU for septic shock secondary to community-acquired pneumonia. Patient was seen on afternoon rounds. She was found resting in bed, comfortably, on supplemental oxygen via NC. She appears to be older than stated age, chronically ill, and quite debilitated. She is A&Ox4 and speaks in full sentences without obvious increased work of breathing. She does report continued dyspnea while at rest and increased sputum production. She denies fever, chills, chest pain, orthopnea, abdominal pain, nausea and vomiting. She has no other questions or concerns. No concerns per nursing. Reason For Visit: PNA,SEPTIC SHOCK Physical Exam Vital Signs: Temp Pulse Resp BP Pulse Ox 98.7 F 80 18 155/89 H 95 06/27/19 16:00 06/27/19 16:00 06/27/19 16:00 06/27/19 16:00 06/27/19 16:00 Intake & Output 06/26/19 06/27/19 06/28/19 06:59 06:59 06:59 Intake Total 1303 2158 300 Balance 1303 2158 300 Weight 83.7 kg 84.4 kg General appearance: PRESENT: no acute distress, cooperative, disheveled, well- developed, well-nourished, other - Older than stated age and chronically ill- appearing Head exam: PRESENT: atraumatic, normocephalic Eye exam: PRESENT: conjunctiva pink, EOMI, PERRLA. ABSENT: scleral icterus Ear exam: PRESENT: normal external ear exam Mouth exam: PRESENT: moist, tongue midline Teeth exam: PRESENT: poor dentation Neck exam: ABSENT: carotid bruit, full ROM, JVD, lymphadenopathy, meningismus, tenderness, thyromegaly, tracheal deviation, tracheostomy, other Respiratory exam: PRESENT: rhonchi, symmetrical, unlabored, other - Supplemental oxygen by nasal cannula. ABSENT: rales, wheezes Cardiovascular exam: PRESENT: RRR, +S1, +S2. ABSENT: diastolic murmur, rubs, systolic murmur Pulses: PRESENT: normal dorsalis pedis pul Vascular exam: PRESENT: normal capillary refill GI/Abdominal exam: PRESENT: normal bowel sounds, soft. ABSENT: distended, guarding, mass, organolmegaly, rebound, tenderness Rectal exam: PRESENT: deferred Extremities exam: PRESENT: full ROM. ABSENT: calf tenderness, clubbing, pedal edema Neurological exam: PRESENT: alert, awake, oriented to person, oriented to place, oriented to time, oriented to situation, CN II-XII grossly intact. ABSENT: motor sensory deficit Psychiatric exam: PRESENT: appropriate affect, normal mood. ABSENT: homicidal ideation, suicidal ideation Skin exam: PRESENT: dry, intact, warm. ABSENT: cyanosis, rash Results Laboratory Results: 06/27/19 05:16 06/27/19 15:35 06/27/19 06/27/19 06/27/19 05:16 05:16 15:35 WBC 15.0 H RBC 3.06 L Hgb 8.5 L Hct 26.3 L MCV 86 MCH 27.8 MCHC 32.4 RDW 17.9 H Plt Count 278 Seg Neutrophils % Not Reportable Sodium 143.2 Potassium 3.9 Chloride 109 H Carbon Dioxide 27 Anion Gap 7 BUN 14 Creatinine 0.61 0.59 Est GFR ( Amer) > 60 > 60 Glucose 78 Calcium 8.8 06/21/19 19:12 Blood Blood Culture - Final NO GROWTH IN 5 DAYS 06/21/19 17:35 Blood Blood Culture - Final NO GROWTH IN 5 DAYS 06/05/19 06/05/19 06/08/19 21:52 22:51 01:10 Creatine Kinase Cancelled CK-MB (CK-2) Troponin I Cancelled < 0.012 NT-Pro-B Natriuret Pep Cancelled [id number] H 06/08/19 06/08/19 06/14/19 01:10 02:00 04:40 Creatine Kinase < 20 L < 20 L CK-MB (CK-2) 1.21 Troponin I 0.032 NT-Pro-B Natriuret Pep [id number] H 06/14/19 04:40 Creatine Kinase CK-MB (CK-2) < 0.22 Troponin I < 0.012 NT-Pro-B Natriuret Pep Impressions: KUB X-Ray 06/06/19 00:00 IMPRESSION: Nasogastric tube in the gastric body Femoral line in place on the right Abdomen/Pelvis CT 06/10/19 00:00 IMPRESSION: 1. Extensive lung findings as above. When compared to 06/06/2019, right pleural effusion is slightly progressive and there is a new small left pleural effusion. Consolidation in the right lung has improved. Progressive interstitial infiltrate in the right upper lobe with new patchy interstitial infiltrate in the left upper lobe. 2. Other findings as above, stable. IMPRESSION: 1. Limited abdominal valuation given noncontrast technique, motion and external source artifacts as described. 2. Ascites. No overt bowel or urinary obstruction. 3. Generalized soft tissue edema/anasarca. Head CT 06/11/19 00:00 IMPRESSION: 1. No acute intracranial findings. Thoracentesis Ultrasound 06/11/19 00:00 IMPRESSION: SUCCESSFUL THORACENTESIS USING ULTRASOUND GUIDANCE. Head MRI 06/24/19 00:00 IMPRESSION: 1. Chronic brain changes, small vessel disease and mild atrophy. No recent CVA or acute intracranial abnormality allowing for bilateral mastoid disease. EVIDENCE OF ACUTE STROKE: NO. Chest CT 06/25/19 00:00 IMPRESSION: 1. Mild improvement aeration in the right upper lobe. There is persistent dense consolidation consistent with pneumonia. Lack of IV contrast limits evaluation for soft tissue masses. 2. Increasing right-sided pleural effusion. 3. New moderate size left pleural effusion. Chest X-Ray 06/25/19 06:00 IMPRESSION: Increasing right upper lobe airspace disease consistent with pneumonia. No other significant interval change. Assessment and Plan - Diagnosis (1) Leukocytosis Qualifiers: Leukocytosis type: unspecified Qualified Code(s): D72.829 - Elevated white blood cell count, unspecified Is this a current diagnosis for this admission?: Yes Plan: Fluctuating;4.1-> 42.7->14.8-> 16.7-> 26.5-> 15.3-> 17.7-> 15.0 Received full course of meropenem for treatment of PNA and E. coli bacteremia. Meropenem was resumed (06/21/19) by the ICU provide due to significant jump in WBC (16->26). Follow up CXR and Chest CT shows reconsolidation of RUL. Vancomycin resumed (06/25/18) Infectious disease was consulted; greatly appreciate Dr. Nicolas's evaluation and recommendations. Leukocytosis likely stress/inflammatory reaction. We will discontinue IV vancomycin and meropenem today. Continue to monitor daily CBC. Observe for objective signs of worsening infection to warrant additional antibiotics. (2) Pneumonia due to Escherichia coli Qualifiers: Laterality: right Lung location: upper lobe of lung Qualified Code(s): J15.5 - Pneumonia due to Escherichia coli Is this a current diagnosis for this admission?: Yes Plan: Slow improvement. Continues on supplemental oxygen via nasal cannula and BiPAP as needed Receiving scheduled and as needed nebulizer treatments. Received full course of meropenem but was resumed (06/21/19) do to significant jump in WBC (16->26). Vancomycin added (06/25/18). Will ask Dr. Guthrie to evaluate patient for possible post obstructive cause of worsened RUL pneumonia. Have consulted Infectious Disease; recommend discontinuing antibiotics at this time and she is received a full course of appropriate treatment. Pulmonary toilet with IS, Flutter, and chest physiotherapy. (3) Acute respiratory failure with hypoxia Is this a current diagnosis for this admission?: Yes Plan: Gradual improvements Secondary to right upper lobe pneumonia. Evaluation management as above. (4) Acute kidney injury (KATHLEEN) with acute tubular necrosis (ATN) Is this a current diagnosis for this admission?: Yes Plan: Resolved. Continue gentle IV fluids. Encourage p.o. fluids. Avoid nephrotoxic medications as able. Strict I&Os Follow-up chemistry. (5) Dehydration Is this a current diagnosis for this admission?: Yes Plan: Resolved. (6) Thrombocytopenia Is this a current diagnosis for this admission?: Yes Plan: Resolved. Continue subcutaneous heparin prophylaxis (7) Acute metabolic encephalopathy Is this a current diagnosis for this admission?: Yes Plan: Resolved. (8) Diarrhea Qualifiers: Diarrhea type: unspecified type Qualified Code(s): R19.7 - Diarrhea, unspecified Is this a current diagnosis for this admission?: Yes Plan: Resolved. Probable cause of hyponatremia and volume loss. May be source of bacteremia. (9) Sepsis with acute organ dysfunction and septic shock Qualifiers: Sepsis type: Escherichia coli Severe sepsis acute organ dysfunction type: acute renal failure Acute renal failure type: with acute tubular necrosis Qualified Code(s): A41.51 - Sepsis due to Escherichia coli [E. coli]; R65.21 - Severe sepsis with septic shock; N17.0 - Acute kidney failure with tubular necrosis Is this a current diagnosis for this admission?: Yes Plan: Resolved. Received Midodrine and steroid therapy while in the ICU; these have been weaned off. (10) Hypo-osmolar hyponatremia Is this a current diagnosis for this admission?: Yes Plan: Resolved. Based on urinary sodium and presentation, appears to be related to [id number] hyponatremia. (11) E coli bacteremia Is this a current diagnosis for this admission?: Yes Plan: Received full course of IV abx as guided by Infectious Disease. (12) Debility Is this a current diagnosis for this admission?: Yes Plan: Following prolonged ICU admission. PT/OT consulted. Discharge planning consulted. - Time Time Spent with patient: 25-34 minutes Medications reviewed and adjusted accordingly: Yes Anticipated discharge: SNF Within: within 72 hours
[2019-06-27] MEDS: LATANOPROST 0.005% OPH SOLN 2.5 ML OU SCH (21:21)
[2019-06-27] MEDS: CITALOPRAM HYDROBROMIDE 20 MG TABLET PO SCH (21:21)
[2019-06-28 05:23] LABS: HEMATOCRIT 24.8 % (36.0-47.0); MEAN CORPUSCULAR HEMOGLOBIN 27.9 pg (27.0-33.4); MEAN CORPUSCULAR HGB CONC 32.2 g/dL (32.0-36.0); MEAN CORPUSCULAR VOLUME 86 fl (80-97); PLATELET COUNT 286 10^3/uL (150-450); RED BLOOD COUNT 2.87 10^6/uL (3.72-5.28); RED CELL DISTRIBUTION WIDTH 17.9 % (11.5-14.0); WHITE BLOOD COUNT 14.2 10^3/uL (4.0-10.5)
[2019-06-28] MEDS: HEPARIN SOD (PORCINE) 5,000 UNIT/ML 1 ML VIAL SUBCUT SCH ×3 (05:50→21:30)
[2019-06-28] MEDS: NORMAL SALINE 1000 ML 1,000 ML IV PRN (05:50)
[2019-06-28] MEDS: IPRATROPIUM/ALBUTEROL 0.5-2.5 MG/3 ML AMPUL NEB SCH ×4 (08:24→20:25)
[2019-06-28] MEDS: ROPINIROLE HCL 0.25 MG TABLET PO SCH ×2 (10:40→17:26)
[2019-06-28] MEDS: FLUTICASONE NASAL SPRAY 50 MCG/SPRY 120 SPRAY/16 GM NASL SCH (10:41)
[2019-06-28] MEDS: GABAPENTIN 300 MG CAPSULE PO SCH ×2 (10:41→21:29)
[2019-06-28] MEDS: DICYCLOMINE HCL 20 MG TABLET PO SCH ×4 (10:41→21:29)
[2019-06-28] MEDS: POTASSIUM CHLORIDE 10 MEQ TABLET.ER PO SCH ×2 (10:41→21:29)
[2019-06-28] MEDS: DILTIAZEM HCL 30 MG TABLET PO SCH ×2 (10:41→17:26)
[2019-06-28] MEDS: HYDROCODONE/ACETAMINOPHEN 5-325 MG TABLET PO PRN ×2 (12:35→17:26)
--- NOTE | 2019-06-28 13:35 | PDOC PROGRESS REPORT ---
Subjective Progress Note for:: 06/28/19 Subjective:: The patient is a 63-year-old female with a past medical history of non-STEMI, COPD, anemia, opiate dependent chronic pain, polypharmacy, depression, and substance abuse who was admitted 06/06/2019 to the ICU for septic shock secondary to community-acquired pneumonia. Patient was seen on morning rounds. She was found resting in bed, comfortably, on BiPAP. She appears to be older than stated age, chronically ill, and quite debilitated. She is A&Ox4 and speaks in full sentences without obvious increased work of breathing. She does report continued dyspnea while at rest and increased sputum production. Transitioned to NC at 3 lpm; which patient tolerated well. She reports her respiratory symptoms are unchanged from yesterday with frequent episodes of sudden worsening of dyspnea that are improved by forceful coughing and/or BiPAP use. She denies fever, chills, chest pain, orthopnea, abdominal pain, nausea and vomiting. She has no other questions or concerns. No concerns per nursing. Reason For Visit: PNA,SEPTIC SHOCK Physical Exam Vital Signs: Temp Pulse Resp BP Pulse Ox 98.1 F 100 20 150/86 H 94 06/27/19 20:41 06/28/19 11:55 06/28/19 11:55 06/27/19 20:41 06/28/19 11:55 Intake & Output 06/27/19 06/28/19 06/29/19 06:59 06:59 06:59 Intake Total 2158 1882 Balance 2158 1882 Weight 84.4 kg 82.7 kg General appearance: PRESENT: no acute distress, cooperative, well-developed, well-nourished, other - Older than stated age and chronically ill-appearing Head exam: PRESENT: atraumatic, normocephalic Eye exam: PRESENT: conjunctiva pink, EOMI, PERRLA. ABSENT: scleral icterus Ear exam: PRESENT: normal external ear exam Mouth exam: PRESENT: moist, tongue midline Teeth exam: PRESENT: poor dentation Neck exam: ABSENT: carotid bruit, JVD, lymphadenopathy, thyromegaly Respiratory exam: PRESENT: prolonged expiratory phas, rhonchi - RUL, symmetrical, unlabored, other - BiPAP/Supplemental oxygen. ABSENT: rales, wheez es Cardiovascular exam: PRESENT: RRR. ABSENT: diastolic murmur, rubs, systolic murmur Pulses: PRESENT: normal dorsalis pedis pul Vascular exam: PRESENT: normal capillary refill GI/Abdominal exam: PRESENT: normal bowel sounds, soft. ABSENT: distended, guarding, mass, organolmegaly, rebound, tenderness Rectal exam: PRESENT: deferred Extremities exam: PRESENT: full ROM. ABSENT: calf tenderness, clubbing, pedal edema Neurological exam: PRESENT: alert, awake, oriented to person, oriented to place, oriented to time, oriented to situation, CN II-XII grossly intact. ABSENT: motor sensory deficit Psychiatric exam: PRESENT: appropriate affect, normal mood. ABSENT: homicidal ideation, suicidal ideation Skin exam: PRESENT: dry, intact, warm. ABSENT: cyanosis, rash Results Laboratory Results: 06/28/19 04:40 06/27/19 15:35 06/27/19 06/28/19 15:35 04:40 WBC 14.2 H RBC 2.87 L Hgb 8.0 L Hct 24.8 L MCV 86 MCH 27.9 MCHC 32.2 RDW 17.9 H Plt Count 286 Creatinine 0.59 Est GFR ( Amer) > 60 06/05/19 06/05/19 06/08/19 21:52 22:51 01:10 Creatine Kinase Cancelled CK-MB (CK-2) Troponin I Cancelled < 0.012 NT-Pro-B Natriuret Pep Cancelled [id number] H 06/08/19 06/08/19 06/14/19 01:10 02:00 04:40 Creatine Kinase < 20 L < 20 L CK-MB (CK-2) 1.21 Troponin I 0.032 NT-Pro-B Natriuret Pep [id number] H 06/14/19 04:40 Creatine Kinase CK-MB (CK-2) < 0.22 Troponin I < 0.012 NT-Pro-B Natriuret Pep Impressions: KUB X-Ray 06/06/19 00:00 IMPRESSION: Nasogastric tube in the gastric body Femoral line in place on the right Abdomen/Pelvis CT 06/10/19 00:00 IMPRESSION: 1. Extensive lung findings as above. When compared to 06/06/2019, right pleural effusion is slightly progressive and there is a new small left pleural effusion. Consolidation in the right lung has improved. Progressive interstitial infiltrate in the right upper lobe with new patchy interstitial infiltrate in the left upper lobe. 2. Other findings as above, stable. IMPRESSION: 1. Limited abdominal valuation given noncontrast technique, motion and external source artifacts as described. 2. Ascites. No overt bowel or urinary obstruction. 3. Generalized soft tissue edema/anasarca. Head CT 06/11/19 00:00 IMPRESSION: 1. No acute intracranial findings. Thoracentesis Ultrasound 06/11/19 00:00 IMPRESSION: SUCCESSFUL THORACENTESIS USING ULTRASOUND GUIDANCE. Head MRI 06/24/19 00:00 IMPRESSION: 1. Chronic brain changes, small vessel disease and mild atrophy. No recent CVA or acute intracranial abnormality allowing for bilateral mastoid disease. EVIDENCE OF ACUTE STROKE: NO. Chest CT 06/25/19 00:00 IMPRESSION: 1. Mild improvement aeration in the right upper lobe. There is persistent dense consolidation consistent with pneumonia. Lack of IV contrast limits evaluation for soft tissue masses. 2. Increasing right-sided pleural effusion. 3. New moderate size left pleural effusion. Chest X-Ray 06/25/19 06:00 IMPRESSION: Increasing right upper lobe airspace disease consistent with pneumonia. No other significant interval change. Assessment and Plan - Diagnosis (1) Pneumonia due to Escherichia coli Qualifiers: Laterality: right Lung location: upper lobe of lung Qualified Code(s): J15.5 - Pneumonia due to Escherichia coli Is this a current diagnosis for this admission?: Yes Plan: Slow improvement. Continues on supplemental oxygen via nasal cannula and BiPAP as needed Receiving scheduled and as needed nebulizer treatments. Have added Mucomyst nebs. Have consulted Infectious Disease; recommend discontinuing antibiotics at this time and she is received a full course of appropriate treatment. Pulmonary toilet with IS, Flutter, and chest physiotherapy. Pulmonology is consulted; discussed with Dr. Guthrie. Will repeat CXR on Tuesday; if no significant clinical improvement or resolution by imaging, will move forward with bronchoscopy. (2) Acute respiratory failure with hypoxia Is this a current diagnosis for this admission?: Yes Plan: Gradual improvements Secondary to right upper lobe pneumonia. Evaluation management as above. (3) Leukocytosis Qualifiers: Leukocytosis type: unspecified Qualified Code(s): D72.829 - Elevated white blood cell count, unspecified Is this a current diagnosis for this admission?: Yes Plan: Overall, trending down; 4.1-> 42.7->14.8-> 16.7-> 26.5-> 15.3-> 17.7-> 15.0-> 14.2 Received full course of meropenem for treatment of PNA and E. coli bacteremia. Meropenem was resumed (06/21/19) by the ICU provide due to significant jump in WBC (16->26). Follow up CXR and Chest CT shows reconsolidation of RUL. Vancomycin resumed (06/25/18) Infectious disease was consulted; greatly appreciate Dr. Nicolas's evaluation and recommendations. Leukocytosis likely stress/inflammatory reaction. Have discontinued IV vancomycin and meropenem Continue to monitor daily CBC. Observe for objective signs of worsening infection to warrant additional antibiotics. (4) Acute kidney injury (KATHLEEN) with acute tubular necrosis (ATN) Is this a current diagnosis for this admission?: Yes Plan: Resolved. Continue gentle IV fluids. Encourage p.o. fluids. Avoid nephrotoxic medications as able. Strict I&Os Follow-up chemistry. (5) Dehydration Is this a current diagnosis for this admission?: Yes Plan: Resolved. (6) Thrombocytopenia Is this a current diagnosis for this admission?: Yes Plan: Resolved. Continue subcutaneous heparin prophylaxis (7) Acute metabolic encephalopathy Is this a current diagnosis for this admission?: Yes Plan: Resolved. (8) Diarrhea Qualifiers: Diarrhea type: unspecified type Qualified Code(s): R19.7 - Diarrhea, unspecified Is this a current diagnosis for this admission?: Yes Plan: Resolved. Probable cause of hyponatremia and volume loss. May be source of bacteremia. (9) Sepsis with acute organ dysfunction and septic shock Qualifiers: Sepsis type: Escherichia coli Severe sepsis acute organ dysfunction type: acute renal failure Acute renal failure type: with acute tubular necrosis Qualified Code(s): A41.51 - Sepsis due to Escherichia coli [E. coli]; R65.21 - Severe sepsis with septic shock; N17.0 - Acute kidney failure with tubular necrosis Is this a current diagnosis for this admission?: Yes Plan: Resolved. Received Midodrine and steroid therapy while in the ICU; these have been weaned off. (10) Hypo-osmolar hyponatremia Is this a current diagnosis for this admission?: Yes Plan: Resolved. Based on urinary sodium and presentation, appears to be related to [id number] hyponatremia. (11) E coli bacteremia Is this a current diagnosis for this admission?: Yes Plan: Received full course of IV abx as guided by Infectious Disease. (12) Debility Is this a current diagnosis for this admission?: Yes Plan: Following prolonged ICU admission. PT/OT consulted. Discharge planning consulted. - Time Time Spent with patient: 35 or more minutes Medications reviewed and adjusted accordingly: Yes
--- NOTE | 2019-06-28 16:41 | PDOC PROGRESS REPORT ---
Subjective Progress Note for:: 06/28/19 Subjective:: unchanged Reason For Visit: 63-year-old female was admitted for sepsis and subsequently sent to the ICU where she get vasopressors she slowly improved and was transferred to the floor during her ICU stay she was noted to have a pneumonia and possible postobstructive pneumonitis right upper lobe however this improved significantly during her stay in the ICU and she was subsequently transferred to the floor however this time it appears that right upper lobe opacification has has continued and she is coughing up copious amounts of sputum she denies any hemoptysis or PPD status is unknown she admits to smoking 1/2 to 2 packs a day for approximately 50 years up until the time of admission Physical Exam Vital Signs: Temp Pulse Resp BP Pulse Ox 98.1 F 105 H 25 H 150/86 H 96 06/27/19 20:41 06/28/19 08:24 06/28/19 08:24 06/27/19 20:41 06/28/19 08:24 Intake & Output 06/27/19 06/28/19 06/29/19 06:59 06:59 06:59 Intake Total 2158 1882 Balance 2158 1882 Weight 84.4 kg 82.7 kg General appearance: PRESENT: no acute distress, cooperative, disheveled, well- developed, well-nourished Head exam: PRESENT: atraumatic Eye exam: PRESENT: conjunctiva pale, EOMI. ABSENT: nystagmus, periorbital swelling, scleral icterus Mouth exam: PRESENT: dry mucosa, neck supple, tongue midline Teeth exam: PRESENT: poor dentation Neck exam: ABSENT: carotid bruit, full ROM, JVD, lymphadenopathy, meningismus, tenderness, thyromegaly, tracheal deviation, tracheostomy, other Respiratory exam: PRESENT: decreased breath sounds, prolonged expiratory phas, rales, rhonchi, unlabored. ABSENT: retraction, stridor, tachypnea Cardiovascular exam: PRESENT: RRR, +S1, +S2 Pulses: PRESENT: normal radial pulses GI/Abdominal exam: PRESENT: soft. ABSENT: guarding, mass, rebound, tenderness Extremities exam: ABSENT: calf tenderness, clubbing, joint swelling Musculoskeletal exam: ABSENT: ambulatory, deformity, dislocation Neurological exam: PRESENT: alert, awake Psychiatric exam: PRESENT: appropriate affect Skin exam: PRESENT: dry, warm Results Laboratory Results: 06/28/19 04:40 06/27/19 15:35 06/27/19 06/28/19 15:35 04:40 WBC 14.2 H RBC 2.87 L Hgb 8.0 L Hct 24.8 L MCV 86 MCH 27.9 MCHC 32.2 RDW 17.9 H Plt Count 286 Creatinine 0.59 Est GFR ( Amer) > 60 06/05/19 06/05/19 06/08/19 21:52 22:51 01:10 Creatine Kinase Cancelled CK-MB (CK-2) Troponin I Cancelled < 0.012 NT-Pro-B Natriuret Pep Cancelled [id number] H 06/08/19 06/08/19 06/14/19 01:10 02:00 04:40 Creatine Kinase < 20 L < 20 L CK-MB (CK-2) 1.21 Troponin I 0.032 NT-Pro-B Natriuret Pep [id number] H 06/14/19 04:40 Creatine Kinase CK-MB (CK-2) < 0.22 Troponin I < 0.012 NT-Pro-B Natriuret Pep Impressions: KUB X-Ray 06/06/19 00:00 IMPRESSION: Nasogastric tube in the gastric body Femoral line in place on the right Abdomen/Pelvis CT 06/10/19 00:00 IMPRESSION: 1. Extensive lung findings as above. When compared to 06/06/2019, right pleural effusion is slightly progressive and there is a new small left pleural effusion. Consolidation in the right lung has improved. Progressive interstitial infiltrate in the right upper lobe with new patchy interstitial infiltrate in the left upper lobe. 2. Other findings as above, stable. IMPRESSION: 1. Limited abdominal valuation given noncontrast technique, motion and external source artifacts as described. 2. Ascites. No overt bowel or urinary obstruction. 3. Generalized soft tissue edema/anasarca. Head CT 06/11/19 00:00 IMPRESSION: 1. No acute intracranial findings. Thoracentesis Ultrasound 06/11/19 00:00 IMPRESSION: SUCCESSFUL THORACENTESIS USING ULTRASOUND GUIDANCE. Head MRI 06/24/19 00:00 IMPRESSION: 1. Chronic brain changes, small vessel disease and mild atrophy. No recent CVA or acute intracranial abnormality allowing for bilateral mastoid disease. EVIDENCE OF ACUTE STROKE: NO. Chest CT 06/25/19 00:00 IMPRESSION: 1. Mild improvement aeration in the right upper lobe. There is persistent dense consolidation consistent with pneumonia. Lack of IV contrast limits evaluation for soft tissue masses. 2. Increasing right-sided pleural effusion. 3. New moderate size left pleural effusion. Chest X-Ray 06/25/19 06:00 IMPRESSION: Increasing right upper lobe airspace disease consistent with pneumonia. No other significant interval change. Assessment & Plan - Diagnosis (1) COPD (chronic obstructive pulmonary disease) Qualifiers: COPD type: emphysema Emphysema type: centrilobular Qualified Code(s): J43.2 - Centrilobular emphysema Is this a current diagnosis for this admission?: Yes Plan: Generic Name Dose Route Start Last Admin Trade Name Freq PRN Reason Stop Dose Admin Albuterol 2.5 mg 06/11/19 03:52 Ventolin 0.083% Neb 2.5 Mg/3 Ml Ampul NEB 07/11/19 03:51 RTQ2HP PRN FOR WHEEZING Albuterol/Ipratropium 3 ml 06/19/19 12:00 06/28/19 11:55 Duoneb 3 Ml Ampul NEB 07/19/19 11:59 3 ml RTQID AHMET Fluticasone Propionate 2 spray 06/13/19 11:30 06/28/19 10:41 Flonase Nasal [place] 50 Mcg/[place] 16 Gm NASL 07/13/19 11:29 2 spr DAILY AHMET Acetylcysteine 600 mg 06/28/19 20:00 Mucomist 20% Soln 800 Mg/4 Ml NEB 07/28/19 19:59 RTBID AHMET (2) HCAP (healthcare-associated pneumonia) Is this a current diagnosis for this admission?: Yes (3) Lung mass Is this a current diagnosis for this admission?: Yes Plan: Right upper lobe opacity discussed with Dr. Breann larios's aggressive chest physiotherapy if no change will schedule for fiberoptic bronchoscopy - Time Time Spent with patient: 25-34 minutes Level of Care: IMCU
[2019-06-28] MEDS: ACETYLCYSTEINE 20% SOLN 800 MG/4 ML VIAL.NEB NEB SCH (20:25)
[2019-06-28] MEDS: CITALOPRAM HYDROBROMIDE 20 MG TABLET PO SCH (21:29)
[2019-06-28] MEDS: LATANOPROST 0.005% OPH SOLN 2.5 ML OU SCH (21:31)
[2019-06-29] MEDS: HEPARIN SOD (PORCINE) 5,000 UNIT/ML 1 ML VIAL SUBCUT SCH ×3 (06:04→22:33)
[2019-06-29] MEDS: NORMAL SALINE 1000 ML 1,000 ML IV PRN (06:05)
[2019-06-29] MEDS: IPRATROPIUM/ALBUTEROL 0.5-2.5 MG/3 ML AMPUL NEB SCH ×4 (08:22→20:20)
[2019-06-29] MEDS: ACETYLCYSTEINE 20% SOLN 800 MG/4 ML VIAL.NEB NEB SCH ×2 (08:24→20:20)
[2019-06-29] MEDS: DILTIAZEM HCL 30 MG TABLET PO SCH ×2 (10:16→17:41)
[2019-06-29] MEDS: HYDROCODONE/ACETAMINOPHEN 5-325 MG TABLET PO PRN ×2 (10:16→17:42)
[2019-06-29] MEDS: DICYCLOMINE HCL 20 MG TABLET PO SCH ×4 (10:16→22:33)
[2019-06-29] MEDS: POTASSIUM CHLORIDE 10 MEQ TABLET.ER PO SCH ×2 (10:16→22:34)
[2019-06-29] MEDS: ROPINIROLE HCL 0.25 MG TABLET PO SCH ×2 (10:17→17:41)
[2019-06-29] MEDS: FLUTICASONE NASAL SPRAY 50 MCG/SPRY 120 SPRAY/16 GM NASL SCH (10:17)
[2019-06-29] MEDS: GABAPENTIN 300 MG CAPSULE PO SCH ×2 (10:17→22:34)
--- NOTE | 2019-06-29 16:22 | PDOC PROGRESS REPORT ---
Subjective Progress Note for:: 06/29/19 Subjective:: The patient is a 63-year-old female with a past medical history of non-STEMI, COPD, anemia, opiate dependent chronic pain, polypharmacy, depression, and substance abuse who was admitted 06/06/2019 to the ICU for septic shock secondary to community-acquired pneumonia. Patient was seen on morning rounds. She was found resting in bed, comfortably, on nasal cannula. She is A&Ox4 and speaks in full sentences without obvious increased work of breathing. She does report continued dyspnea while at rest and increased sputum production. She does report improved respiratory symptoms from yesterday. Overall, feeling much better. She denies fever, chills, chest pain, orthopnea, abdominal pain, nausea and vomiting. She has no other questions or concerns. No concerns per nursing. Reason For Visit: PNA,SEPTIC SHOCK Physical Exam Vital Signs: Temp Pulse Resp BP Pulse Ox 99.4 F 104 H 17 131/83 H 96 06/29/19 11:31 06/29/19 12:21 06/29/19 12:21 06/29/19 11:31 06/29/19 12:21 Intake & Output 06/28/19 06/29/19 06/30/19 06:59 06:59 06:59 Intake Total 1882 1598 0 Balance 1882 1598 0 Weight 82.7 kg 81 kg General appearance: PRESENT: no acute distress, cooperative, well-developed, well-nourished, other - Frail chronically ill-appearing Head exam: PRESENT: atraumatic, normocephalic Eye exam: PRESENT: conjunctiva pink, EOMI, PERRLA. ABSENT: scleral icterus Ear exam: PRESENT: normal external ear exam Mouth exam: PRESENT: moist, tongue midline Teeth exam: PRESENT: poor dentation Respiratory exam: PRESENT: prolonged expiratory phas, rhonchi, symmetrical, unla bored, other - Supplemental oxygen via nasal cannula. ABSENT: rales, wheezes Cardiovascular exam: PRESENT: RRR. ABSENT: diastolic murmur, rubs, systolic murmur Pulses: PRESENT: normal dorsalis pedis pul Vascular exam: PRESENT: normal capillary refill GI/Abdominal exam: PRESENT: normal bowel sounds, soft. ABSENT: distended, guarding, mass, organolmegaly, rebound, tenderness Rectal exam: PRESENT: deferred Extremities exam: PRESENT: full ROM. ABSENT: calf tenderness, clubbing, pedal edema Neurological exam: PRESENT: alert, awake, oriented to person, oriented to place, oriented to time, oriented to situation, CN II-XII grossly intact. ABSENT: motor sensory deficit Psychiatric exam: PRESENT: appropriate affect, normal mood. ABSENT: homicidal ideation, suicidal ideation Skin exam: PRESENT: dry, intact, warm. ABSENT: cyanosis, rash Results Laboratory Results: 06/28/19 04:40 06/27/19 15:35 06/05/19 06/05/19 06/08/19 21:52 22:51 01:10 Creatine Kinase Cancelled CK-MB (CK-2) Troponin I Cancelled < 0.012 NT-Pro-B Natriuret Pep Cancelled 41261 H 06/08/19 06/08/19 06/14/19 01:10 02:00 04:40 Creatine Kinase < 20 L < 20 L CK-MB (CK-2) 1.21 Troponin I 0.032 NT-Pro-B Natriuret Pep [id number] H 06/14/19 04:40 Creatine Kinase CK-MB (CK-2) < 0.22 Troponin I < 0.012 NT-Pro-B Natriuret Pep Impressions: KUB X-Ray 06/06/19 00:00 IMPRESSION: Nasogastric tube in the gastric body Femoral line in place on the right Abdomen/Pelvis CT 06/10/19 00:00 IMPRESSION: 1. Extensive lung findings as above. When compared to 06/06/2019, right pleural effusion is slightly progressive and there is a new small left pleural effusion. Consolidation in the right lung has improved. Progressive interstitial infi ltrate in the right upper lobe with new patchy interstitial infiltrate in the left upper lobe. 2. Other findings as above, stable. IMPRESSION: 1. Limited abdominal valuation given noncontrast technique, motion and external source artifacts as described. 2. Ascites. No overt bowel or urinary obstruction. 3. Generalized soft tissue edema/anasarca. Head CT 06/11/19 00:00 IMPRESSION: 1. No acute intracranial findings. Thoracentesis Ultrasound 06/11/19 00:00 IMPRESSION: SUCCESSFUL THORACENTESIS USING ULTRASOUND GUIDANCE. Head MRI 06/24/19 00:00 IMPRESSION: 1. Chronic brain changes, small vessel disease and mild atrophy. No recent CVA or acute intracranial abnormality allowing for bilateral mastoid disease. EVIDENCE OF ACUTE STROKE: NO. Chest CT 06/25/19 00:00 IMPRESSION: 1. Mild improvement aeration in the right upper lobe. There is persistent dense consolidation consistent with pneumonia. Lack of IV contrast limits evaluation for soft tissue masses. 2. Increasing right-sided pleural effusion. 3. New moderate size left pleural effusion. Chest X-Ray 06/25/19 06:00 IMPRESSION: Increasing right upper lobe airspace disease consistent with pneumonia. No other significant interval change. Assessment and Plan - Diagnosis (1) Pneumonia due to Escherichia coli Qualifiers: Laterality: right Lung location: upper lobe of lung Qualified Code(s): J15.5 - Pneumonia due to Escherichia coli Is this a current diagnosis for this admission?: Yes Plan: Slow improvement. Continues on supplemental oxygen via nasal cannula and BiPAP as needed Receiving scheduled and as needed nebulizer treatments. Continue Mucomyst nebs. Received full course of IV meropenem. Pulmonary toilet with IS, Flutter, and chest physiotherapy. Pulmonology is consulted; discussed with Dr. Guthrie. Will repeat CXR on Tuesday; if no significant clinical improvement or resolution by imaging, will move forward with bronchoscopy. (2) Acute respiratory failure with hypoxia Is this a current diagnosis for this admission?: Yes Plan: Gradual improvements Secondary to right upper lobe pneumonia. Evaluation management as above. (3) Leukocytosis Qualifiers: Leukocytosis type: unspecified Qualified Code(s): D72.829 - Elevated white blood cell count, unspecified Is this a current diagnosis for this admission?: Yes Plan: Overall, trending down; 4.1-> 42.7->14.8-> 16.7-> 26.5-> 15.3-> 17.7-> 15.0-> 14.2 Received full course of meropenem for treatment of PNA and E. coli bacteremia. Meropenem was resumed (06/21/19) by the ICU provide due to significant jump in WBC (16->26). Discontinued 06/27. Vancomycin resumed (06/25/19). Discontinued 06/27 Follow up CXR and Chest CT shows reconsolidation of RUL. Infectious disease was consulted; greatly appreciate Dr. Nicolas's evaluation and recommendations. Leukocytosis likely stress/inflammatory reaction. Have discontinued IV vancomycin and meropenem Continue to monitor daily CBC. Observe for objective signs of worsening infection to warrant additional antibiotics. (4) Acute kidney injury (KATHLEEN) with acute tubular necrosis (ATN) Is this a current diagnosis for this admission?: Yes Plan: Resolved. Continue gentle IV fluids. Encourage p.o. fluids. Avoid nephrotoxic medications as able. Strict I&Os Follow-up chemistry. (5) Dehydration Is this a current diagnosis for this admission?: Yes Plan: Resolved. (6) Thrombocytopenia Is this a current diagnosis for this admission?: Yes Plan: Resolved. Continue subcutaneous heparin prophylaxis (7) Acute metabolic encephalopathy Is this a current diagnosis for this admission?: Yes Plan: Resolved. (8) Diarrhea Qualifiers: Diarrhea type: unspecified type Qualified Code(s): R19.7 - Diarrhea, unspecified Is this a current diagnosis for this admission?: Yes Plan: Resolved. Probable cause of hyponatremia and volume loss. May be source of bacteremia. (9) Sepsis with acute organ dysfunction and septic shock Qualifiers: Sepsis type: Escherichia coli Severe sepsis acute organ dysfunction type: acute renal failure Acute renal failure type: with acute tubular necrosis Qualified Code(s): A41.51 - Sepsis due to Escherichia coli [E. coli]; R65.21 - Severe sepsis with septic shock; N17.0 - Acute kidney failure with tubular necrosis Is this a current diagnosis for this admission?: Yes Plan: Resolved. Received Midodrine and steroid therapy while in the ICU; these have been weaned off. (10) Hypo-osmolar hyponatremia Is this a current diagnosis for this admission?: Yes Plan: Resolved. Based on urinary sodium and presentation, appears to be related to [id number] hyponatremia. (11) E coli bacteremia Is this a current diagnosis for this admission?: Yes Plan: Received full course of IV abx as guided by Infectious Disease. (12) Debility Is this a current diagnosis for this admission?: Yes Plan: Following prolonged ICU admission. PT/OT consulted. Discharge planning consulted. - Time Time Spent with patient: 15-24 minutes Medications reviewed and adjusted accordingly: Yes Anticipated discharge: Home with Homehealth
[2019-06-29] MEDS: CITALOPRAM HYDROBROMIDE 20 MG TABLET PO SCH (22:34)
[2019-06-29] MEDS: LATANOPROST 0.005% OPH SOLN 2.5 ML OU SCH (22:34)
[2019-06-30] MEDS: HEPARIN SOD (PORCINE) 5,000 UNIT/ML 1 ML VIAL SUBCUT SCH ×3 (05:59→22:34)
[2019-06-30 06:46] LABS: HEMATOCRIT 25.5 % (36.0-47.0); HEMOGLOBIN 8.1 g/dL (12.0-15.5); MEAN CORPUSCULAR HEMOGLOBIN 27.3 pg (27.0-33.4); MEAN CORPUSCULAR HGB CONC 31.6 g/dL (32.0-36.0); MEAN CORPUSCULAR VOLUME 86 fl (80-97); PLATELET COUNT 384 10^3/uL (150-450); RED BLOOD COUNT 2.96 10^6/uL (3.72-5.28); RED CELL DISTRIBUTION WIDTH 17.8 % (11.5-14.0); WHITE BLOOD COUNT 12.6 10^3/uL (4.0-10.5)
[2019-06-30] MEDS: ACETYLCYSTEINE 20% SOLN 800 MG/4 ML VIAL.NEB NEB SCH ×2 (08:33→20:42)
[2019-06-30] MEDS: IPRATROPIUM/ALBUTEROL 0.5-2.5 MG/3 ML AMPUL NEB SCH ×4 (08:35→20:42)
[2019-06-30] MEDS: DICYCLOMINE HCL 20 MG TABLET PO SCH ×2 (10:02→20:42)
[2019-06-30] MEDS: HYDROCODONE/ACETAMINOPHEN 5-325 MG TABLET PO PRN ×2 (10:02→19:52)
[2019-06-30] MEDS: DILTIAZEM HCL 30 MG TABLET PO SCH ×2 (10:02→19:51)
[2019-06-30] MEDS: FLUTICASONE NASAL SPRAY 50 MCG/SPRY 120 SPRAY/16 GM NASL SCH (10:03)
[2019-06-30] MEDS: ROPINIROLE HCL 0.25 MG TABLET PO SCH ×2 (10:03→19:52)
[2019-06-30] MEDS: GABAPENTIN 300 MG CAPSULE PO SCH ×2 (10:04→22:33)
[2019-06-30] MEDS: POTASSIUM CHLORIDE 10 MEQ TABLET.ER PO SCH ×2 (10:04→22:34)
[2019-06-30] MEDS ORDERED: MAGNESIUM HYDROXIDE SUSP 30 ML UDCUP PO PRN (14:19)
--- NOTE | 2019-06-30 14:21 | PDOC PROGRESS REPORT ---
Subjective Progress Note for:: 06/30/19 Subjective:: The patient is a 63-year-old female with a past medical history of non-STEMI, COPD, anemia, opiate dependent chronic pain, polypharmacy, depression, and substance abuse who was admitted 06/06/2019 to the ICU for septic shock secondary to community-acquired pneumonia. Patient was seen on morning rounds with her son present. She was found resting in bed, comfortably, on BiPAP. She is A&Ox4 and speaks in full sentences without obvious increased work of breathing. She does report continued dyspnea while at rest and increased sputum production. Overall, feeling much better. Admits that she has not been up with physical therapy yet; looking forward to beginning rehab services. She is hopeful to be able to discharge to home following resolution of her pneumonia. She denies fever, chills, chest pain, orthopnea, abdominal pain, nausea and vomiting. Reviewed clinical progress and plan of care with patient and son; plan to continue chest physiotherapy and pulmonary toilet over the weekend. If not substantially improved by Tuesday, Dr. Guthrie plans to do bronchoscopy and biopsy. Nursing reports the patient has had difficulty with urinary retention and co nstipation. They also have noted dependent edema. Reason For Visit: PNA,SEPTIC SHOCK Physical Exam Vital Signs: Temp Pulse Resp BP Pulse Ox 98.9 F 97 18 141/95 H 97 06/30/19 08:55 06/30/19 12:09 06/30/19 12:09 06/30/19 08:55 06/30/19 12:09 Intake & Output 06/29/19 06/30/19 07/01/19 06:59 06:59 06:59 Intake Total 1598 480 Balance 1598 480 Weight 81 kg 69.4 kg General appearance: PRESENT: no acute distress, cooperative, disheveled, well- developed, well-nourished Head exam: PRESENT: atraumatic, normocephalic Eye exam: PRESENT: conjunctiva pink, EOMI, PERRLA. ABSENT: scleral icterus Ear exam: PRESENT: normal external ear exam Mouth exam: PRESENT: moist, tongue midline Teeth exam: PRESENT: poor dentation Respiratory exam: PRESENT: rhonchi - Right upper and middle read; clear on left, symmetrical, unlabored, other - Currently on BiPAP; tolerates nasal cannula well. ABSENT: rales, wheezes Cardiovascular exam: PRESENT: RRR, +S1, +S2. ABSENT: diastolic murmur, rubs, systolic murmur Pulses: PRESENT: normal dorsalis pedis pul Vascular exam: PRESENT: normal capillary refill GI/Abdominal exam: PRESENT: normal bowel sounds, soft. ABSENT: distended, guarding, mass, organolmegaly, rebound, tenderness Rectal exam: PRESENT: deferred Extremities exam: PRESENT: full ROM. ABSENT: calf tenderness, clubbing, pedal edema Neurological exam: PRESENT: alert, awake, oriented to person, oriented to place, oriented to time, oriented to situation, CN II-XII grossly intact. ABSENT: motor sensory deficit Psychiatric exam: PRESENT: appropriate affect, normal mood. ABSENT: homicidal ideation, suicidal ideation Skin exam: PRESENT: dry, intact, warm. ABSENT: cyanosis, rash Results Laboratory Results: 06/30/19 06:09 06/27/19 15:35 06/30/19 06:09 WBC 12.6 H RBC 2.96 L Hgb 8.1 L Hct 25.5 L MCV 86 MCH 27.3 MCHC 31.6 L RDW 17.8 H Plt Count 384 06/05/19 06/05/19 06/08/19 21:52 22:51 01:10 Creatine Kinase Cancelled CK-MB (CK-2) Troponin I Cancelled < 0.012 NT-Pro-B Natriuret Pep Cancelled [id number] H 06/08/19 06/08/19 06/14/19 01:10 02:00 04:40 Creatine Kinase < 20 L < 20 L CK-MB (CK-2) 1.21 Troponin I 0.032 NT-Pro-B Natriuret Pep [id number] H 06/14/19 04:40 Creatine Kinase CK-MB (CK-2) < 0.22 Troponin I < 0.012 NT-Pro-B Natriuret Pep Impressions: KUB X-Ray 06/06/19 00:00 IMPRESSION: Nasogastric tube in the gastric body Femoral line in place on the right Abdomen/Pelvis CT 06/10/19 00:00 IMPRESSION: 1. Extensive lung findings as above. When compared to 06/06/2019, right pleural effusion is slightly progressive and there is a new small left pleural effusion. Consolidation in the right lung has improved. Progressive interstitial infiltrate in the right upper lobe with new patchy interstitial infiltrate in the left upper lobe. 2. Other findings as above, stable. IMPRESSION: 1. Limited abdominal valuation given noncontrast technique, motion and external source artifacts as described. 2. Ascites. No overt bowel or urinary obstruction. 3. Generalized soft tissue edema/anasarca. Head CT 06/11/19 00:00 IMPRESSION: 1. No acute intracranial findings. Thoracentesis Ultrasound 06/11/19 00:00 IMPRESSION: SUCCESSFUL THORACENTESIS USING ULTRASOUND GUIDANCE. Head MRI 06/24/19 00:00 IMPRESSION: 1. Chronic brain changes, small vessel disease and mild atrophy. No recent CVA or acute intracranial abnormality allowing for bilateral mastoid disease. EVIDENCE OF ACUTE STROKE: NO. Chest CT 06/25/19 00:00 IMPRESSION: 1. Mild improvement aeration in the right upper lobe. There is persistent dense consolidation consistent with pneumonia. Lack of IV contrast limits evaluation for soft tissue masses. 2. Increasing right-sided pleural effusion. 3. New moderate size left pleural effusion. Chest X-Ray 06/25/19 06:00 IMPRESSION: Increasing right upper lobe airspace disease consistent with pneumonia. No other significant interval change. Assessment and Plan - Diagnosis (1) Pneumonia due to Escherichia coli Qualifiers: Laterality: right Lung location: upper lobe of lung Qualified Code(s): J15.5 - Pneumonia due to Escherichia coli Is this a current diagnosis for this admission?: Yes Plan: Slow improvement. No tolerating longer periods off of BiPAP; nasal cannula at 3 L/min. She is not home O2 dependent. Continues on supplemental oxygen via nasal cannula and BiPAP as needed Receiving scheduled and as needed nebulizer treatments. Continue Mucomyst nebs. Received full course of IV meropenem. Pulmonary toilet with IS, Flutter, and chest physiotherapy. Pulmonology is consulted; discussed with Dr. Guthrie. Will repeat CXR on Tuesday; if no significant clinical improvement or resolution by imaging, will move forward with bronchoscopy. (2) Acute respiratory failure with hypoxia Is this a current diagnosis for this admission?: Yes Plan: Gradual improvements Secondary to right upper lobe pneumonia. Evaluation management as above. (3) Leukocytosis Qualifiers: Leukocytosis type: unspecified Qualified Code(s): D72.829 - Elevated white blood cell count, unspecified Is this a current diagnosis for this admission?: Yes Plan: Overall, trending down; 4.1-> 42.7->14.8-> 16.7-> 26.5-> 15.3-> 17.7-> 15.0-> 14.2-> 12.6 Received full course of meropenem for treatment of PNA and E. coli bacteremia. Meropenem was resumed (06/21/19) by the ICU provide due to significant jump in WBC (16->26). Discontinued 06/27. Vancomycin resumed (06/25/19). Discontinued 06/27 Follow up CXR and Chest CT shows reconsolidation of RUL. Infectious disease was consulted; greatly appreciate Dr. Nicolas's evaluation and recommendations. Leukocytosis likely stress/inflammatory reaction. Have discontinued IV vancomycin and meropenem Continue to monitor CBC. Observe for objective signs of worsening infection to warrant additional antibiotics. (4) Acute kidney injury (KATHLEEN) with acute tubular necrosis (ATN) Is this a current diagnosis for this admission?: Yes Plan: Resolved. Encourage p.o. fluids. Avoid nephrotoxic medications as able. Strict I&Os Follow-up chemistry. (5) Dehydration Is this a current diagnosis for this admission?: Yes Plan: Resolved. (6) Thrombocytopenia Is this a current diagnosis for this admission?: Yes Plan: Resolved. Continue subcutaneous heparin prophylaxis (7) Acute metabolic encephalopathy Is this a current diagnosis for this admission?: Yes Plan: Resolved. (8) Diarrhea Qualifiers: Diarrhea type: unspecified type Qualified Code(s): R19.7 - Diarrhea, unspecified Is this a current diagnosis for this admission?: Yes Plan: Resolved. Probable cause of hyponatremia and volume loss. May be source of bacteremia. (9) Sepsis with acute organ dysfunction and septic shock Qualifiers: Sepsis type: Escherichia coli Severe sepsis acute organ dysfunction type: acute renal failure Acute renal failure type: with acute tubular necrosis Qualified Code(s): A41.51 - Sepsis due to Escherichia coli [E. coli]; R65.21 - S evere sepsis with septic shock; N17.0 - Acute kidney failure with tubular necrosis Is this a current diagnosis for this admission?: Yes Plan: Resolved. Received Midodrine and steroid therapy while in the ICU; these have been weaned off. (10) Hypo-osmolar hyponatremia Is this a current diagnosis for this admission?: Yes Plan: Resolved. Based on urinary sodium and presentation, appears to be related to [id number] hyponatremia. (11) E coli bacteremia Is this a current diagnosis for this admission?: Yes Plan: Received full course of IV abx as guided by Infectious Disease. (12) Debility Is this a current diagnosis for this admission?: Yes Plan: Following prolonged ICU admission. PT/OT consulted. Discharge planning consulted. (13) Urinary retention Is this a current diagnosis for this admission?: Yes Plan: Urinalysis pending. Bladder scan every 6 hours and straight cath for greater than 200. Increase mobility. (14) Constipation Is this a current diagnosis for this admission?: Yes Plan: Colace twice daily. MiraLAX daily. Milk of mag as needed. Subset enema x1. Increase mobility - Time Time Spent with patient: 25-34 minutes Medications reviewed and adjusted accordingly: Yes Anticipated discharge: SNF Within: within 72 hours
[2019-06-30] MEDS: DOCUSATE SODIUM 100 MG CAPSULE PO SCH (19:51)
[2019-06-30] MEDS: CITALOPRAM HYDROBROMIDE 20 MG TABLET PO SCH (22:33)
[2019-06-30] MEDS: LATANOPROST 0.005% OPH SOLN 2.5 ML OU SCH (22:34)
[2019-07-01] MEDS: HEPARIN SOD (PORCINE) 5,000 UNIT/ML 1 ML VIAL SUBCUT SCH ×3 (06:26→22:29)
[2019-07-01] MEDS: ACETYLCYSTEINE 20% SOLN 800 MG/4 ML VIAL.NEB NEB SCH ×2 (08:32→21:07)
[2019-07-01] MEDS: IPRATROPIUM/ALBUTEROL 0.5-2.5 MG/3 ML AMPUL NEB SCH ×4 (08:32→21:07)
[2019-07-01] MEDS: POTASSIUM CHLORIDE 10 MEQ TABLET.ER PO SCH ×2 (10:15→22:29)
[2019-07-01] MEDS: GABAPENTIN 300 MG CAPSULE PO SCH ×2 (10:15→22:29)
[2019-07-01] MEDS: ROPINIROLE HCL 0.25 MG TABLET PO SCH ×2 (10:15→17:14)
[2019-07-01] MEDS: DOCUSATE SODIUM 100 MG CAPSULE PO SCH ×2 (10:15→17:14)
[2019-07-01] MEDS: HYDROCODONE/ACETAMINOPHEN 5-325 MG TABLET PO PRN ×2 (10:15→18:10)
[2019-07-01] MEDS: POLYETHYLENE GLYCOL 3350 POWDER 17 GM/1 PACKET PO SCH (10:15)
[2019-07-01] MEDS: DILTIAZEM HCL 30 MG TABLET PO SCH ×2 (10:16→17:14)
[2019-07-01] MEDS: FLUTICASONE NASAL SPRAY 50 MCG/SPRY 120 SPRAY/16 GM NASL SCH (10:16)
--- NOTE | 2019-07-01 11:29 | PDOC PROGRESS REPORT ---
Subjective Progress Note for:: 07/01/19 Subjective:: The patient is a 63-year-old female with a past medical history of non-STEMI, COPD, anemia, opiate dependent chronic pain, polypharmacy, depression, and substance abuse who was admitted 06/06/2019 to the ICU for septic shock secondary to community-acquired pneumonia. Patient was seen on morning rounds with her son present. She was found resting in bed, comfortably, on BiPAP. She is A&Ox4 and speaks in full sentences without obvious increased work of breathing. She does report continued dyspnea while at rest and increased sputum production. Overall, feeling much better. Frustrated by urinary retention overnight. She denies abdominal discomfort and dysuria. She is encouraged to work with physical therapy so that she may attempt to void while upright on bedside commode vs bed chamorro. She denies fever, chills, chest pain, orthopnea, abdominal pain, nausea and vomiting. They have no other questions or concerns today. No concerns per nursing. Reason For Visit: PNA,SEPTIC SHOCK Physical Exam Vital Signs: Temp Pulse Resp BP Pulse Ox 98.3 F 104 H 26 H 122/72 94 07/01/19 08:00 07/01/19 08:34 07/01/19 08:56 07/01/19 08:00 07/01/19 08:34 Intake & Output 06/30/19 07/01/19 07/02/19 06:59 06:59 06:59 Intake Total 480 1360 Output Total 400 Balance 480 960 Weight 69.4 kg 70.2 kg General appearance: PRESENT: no acute distress, cooperative, well-developed, well-nourished Head exam: PRESENT: atraumatic, normocephalic Eye exam: PRESENT: conjunctiva pink, EOMI, PERRLA. ABSENT: scleral icterus Ear exam: PRESENT: normal external ear exam Mouth exam: PRESENT: moist, tongue midline Teeth exam: PRESENT: edentulous - dentures Respiratory exam: PRESENT: rhonchi - Right upper and middle lung read, symmetrical, unlabored, other - Currently on BiPAP; tolerates nasal cannula well. ABSENT: rales, wheezes Cardiovascular exam: PRESENT: RRR. ABSENT: diastolic murmur, rubs, systolic murmur Pulses: PRESENT: normal dorsalis pedis pul Vascular exam: PRESENT: normal capillary refill GI/Abdominal exam: PRESENT: normal bowel sounds, soft. ABSENT: distended, guarding, mass, organolmegaly, rebound, tenderness Rectal exam: PRESENT: deferred Extremities exam: PRESENT: full ROM. ABSENT: calf tenderness, clubbing, pedal edema Neurological exam: PRESENT: alert, awake, oriented to person, oriented to place, oriented to time, oriented to situation, CN II-XII grossly intact. ABSENT: motor sensory deficit Psychiatric exam: PRESENT: appropriate affect, normal mood. ABSENT: homicidal ideation, suicidal ideation Skin exam: PRESENT: dry, intact, warm. ABSENT: cyanosis, rash Results Laboratory Results: 06/30/19 06:09 06/27/19 15:35 06/05/19 06/05/19 06/08/19 21:52 22:51 01:10 Creatine Kinase Cancelled CK-MB (CK-2) Troponin I Cancelled < 0.012 NT-Pro-B Natriuret Pep Cancelled [id number] H 06/08/19 06/08/19 06/14/19 01:10 02:00 04:40 Creatine Kinase < 20 L < 20 L CK-MB (CK-2) 1.21 Troponin I 0.032 NT-Pro-B Natriuret Pep [id number] H 06/14/19 04:40 Creatine Kinase CK-MB (CK-2) < 0.22 Troponin I < 0.012 NT-Pro-B Natriuret Pep Impressions: KUB X-Ray 06/06/19 00:00 IMPRESSION: Nasogastric tube in the gastric body Femoral line in place on the right Abdomen/Pelvis CT 06/10/19 00:00 IMPRESSION: 1. Extensive lung findings as above. When compared to 06/06/2019, right pleural effusion is slightly progressive and there is a new small left pleural effusion. Consolidation in the right lung has improved. Progressive interstitial infiltrate in the right upper lobe with new patchy interstitial infiltrate in the left upper lobe. 2. Other findings as above, stable. IMPRESSION: 1. Limited abdominal valuation given noncontrast technique, motion and external source artifacts as described. 2. Ascites. No overt bowel or urinary obstruction. 3. Generalized soft tissue edema/anasarca. Head CT 06/11/19 00:00 IMPRESSION: 1. No acute intracranial findings. Thoracentesis Ultrasound 06/11/19 00:00 IMPRESSION: SUCCESSFUL THORACENTESIS USING ULTRASOUND GUIDANCE. Head MRI 06/24/19 00:00 IMPRESSION: 1. Chronic brain changes, small vessel disease and mild atrophy. No recent CVA or acute intracranial abnormality allowing for bilateral mastoid disease. EVIDENCE OF ACUTE STROKE: NO. Chest CT 06/25/19 00:00 IMPRESSION: 1. Mild improvement aeration in the right upper lobe. There is persistent dense consolidation consistent with pneumonia. Lack of IV contrast limits evaluation for soft tissue masses. 2. Increasing right-sided pleural effusion. 3. New moderate size left pleural effusion. Chest X-Ray 06/25/19 06:00 IMPRESSION: Increasing right upper lobe airspace disease consistent with pneumo jina. No other significant interval change. Assessment and Plan - Diagnosis (1) Pneumonia due to Escherichia coli Qualifiers: Laterality: right Lung location: upper lobe of lung Qualified Code(s): J15.5 - Pneumonia due to Escherichia coli Is this a current diagnosis for this admission?: Yes Plan: Slow improvement. Now tolerating longer periods off of BiPAP; nasal cannula at 3 L/min. She is not home O2 dependent. Continues on supplemental oxygen via nasal cannula and BiPAP as needed Receiving scheduled and as needed nebulizer treatments. Continue Mucomyst nebs. Received full course of IV meropenem. Pulmonary toilet with IS, Flutter, and chest physiotherapy. Pulmonology is consulted; discussed with Dr. Guthrie. Will repeat CXR tomorrow; if no significant improvement, will move forward with bronchoscopy. (2) Acute respiratory failure with hypoxia Is this a current diagnosis for this admission?: Yes Plan: Gradual improvements Secondary to right upper lobe pneumonia. Evaluation management as above. (3) Leukocytosis Qualifiers: Leukocytosis type: unspecified Qualified Code(s): D72.829 - Elevated white blood cell count, unspecified Is this a current diagnosis for this admission?: Yes Plan: Overall, trending down; 4.1-> 42.7->14.8-> 16.7-> 26.5-> 15.3-> 17.7-> 15.0-> 14.2-> 12.6 Received full course of meropenem for treatment of PNA and E. coli bacteremia. Meropenem was resumed (06/21/19) by the ICU provide due to significant jump in WBC (16->26). Discontinued 06/27. Vancomycin resumed (06/25/19). Discontinued 06/27 Follow up CXR and Chest CT shows reconsolidation of RUL. Infectious disease was consulted; greatly appreciate Dr. Nicolas's evaluation and recommendations. Leukocytosis likely stress/inflammatory reaction. Have discontinued IV vancomycin and meropenem Continue to monitor CBC. Observe for objective signs of worsening infection to warrant additional antibiotics. (4) Acute kidney injury (KATHLEEN) with acute tubular necrosis (ATN) Is this a current diagnosis for this admission?: Yes Plan: Resolved. Encourage p.o. fluids. Avoid nephrotoxic medications as able. Strict I&Os Follow-up chemistry. (5) Dehydration Is this a current diagnosis for this admission?: Yes Plan: Resolved. (6) Thrombocytopenia Is this a current diagnosis for this admission?: Yes Plan: Resolved. Continue subcutaneous heparin prophylaxis (7) Acute metabolic encephalopathy Is this a current diagnosis for this admission?: Yes Plan: Resolved. (8) Diarrhea Qualifiers: Diarrhea type: unspecified type Qualified Code(s): R19.7 - Diarrhea, unspecified Is this a current diagnosis for this admission?: Yes Plan: Resolved. Probable cause of hyponatremia and volume loss. May be source of bacteremia. (9) Sepsis with acute organ dysfunction and septic shock Qualifiers: Sepsis type: Escherichia coli Severe sepsis acute organ dysfunction type: acute renal failure Acute renal failure type: with acute tubular necrosis Qualified Code(s): A41.51 - Sepsis due to Escherichia coli [E. coli]; R65.21 - Severe sepsis with septic shock; N17.0 - Acute kidney failure with tubular necrosis Is this a current diagnosis for this admission?: Yes Plan: Resolved. Received Midodrine and steroid therapy while in the ICU; these have been weaned off. (10) Hypo-osmolar hyponatremia Is this a current diagnosis for this admission?: Yes Plan: Resolved. Based on urinary sodium and presentation, appears to be related to [id number] hyponatremia. (11) E coli bacteremia Is this a current diagnosis for this admission?: Yes Plan: Received full course of IV abx as guided by Infectious Disease. (12) Debility Is this a current diagnosis for this admission?: Yes Plan: Following prolonged ICU admission. PT/OT consulted. Discharge planning consulted. (13) Urinary retention Is this a current diagnosis for this admission?: Yes Plan: Urinalysis negative. Constipation resolved. Encouraged p.o. fluids. Attempt OOB to commode for voids. D/C narcotics. Bladder scan every 6 hours and straight cath for greater than 200. (14) Constipation Is this a current diagnosis for this admission?: Yes Plan: Resolved. Colace twice daily. MiraLAX daily. Milk of mag as needed. Soapsuds enema x1. Increase mobility - Time Time Spent with patient: 25-34 minutes Medications reviewed and adjusted accordingly: Yes Anticipated discharge: SNF Within: within 72 hours
[2019-07-01] MEDS: CITALOPRAM HYDROBROMIDE 20 MG TABLET PO SCH (22:29)
[2019-07-01] MEDS: LATANOPROST 0.005% OPH SOLN 2.5 ML OU SCH (22:30)
[2019-07-02] MEDS: HEPARIN SOD (PORCINE) 5,000 UNIT/ML 1 ML VIAL SUBCUT SCH ×3 (05:11→21:20)
[2019-07-02 07:30] LABS: HEMATOCRIT 22.2 % (36.0-47.0); MEAN CORPUSCULAR HEMOGLOBIN 27.4 pg (27.0-33.4); MEAN CORPUSCULAR HGB CONC 31.8 g/dL (32.0-36.0); MEAN CORPUSCULAR VOLUME 86 fl (80-97); PLATELET COUNT 440 10^3/uL (150-450); RED BLOOD COUNT 2.58 10^6/uL (3.72-5.28); RED CELL DISTRIBUTION WIDTH 17.7 % (11.5-14.0); WHITE BLOOD COUNT 12.4 10^3/uL (4.0-10.5)
[2019-07-02 07:31] LABS: HEMOGLOBIN 7.1 g/dL (12.0-15.5)
[2019-07-02 07:32] LABS: BLOOD UREA NITROGEN 10 mg/dL (7-20); CALCIUM 8.7 mg/dL (8.4-10.2); CARBON DIOXIDE 30 mmol/L (22-30); POTASSIUM 5.1 mmol/L (3.6-5.0)
[2019-07-02 07:37] LABS: CHLORIDE 107 mmol/L (98-107)
[2019-07-02 07:40] LABS: ANION GAP 4 (5-19)
[2019-07-02 07:42] LABS: GLUCOSE 63 mg/dL (75-110)
[2019-07-02] MEDS: ACETYLCYSTEINE 20% SOLN 800 MG/4 ML VIAL.NEB NEB SCH ×2 (08:09→20:14)
[2019-07-02] MEDS: IPRATROPIUM/ALBUTEROL 0.5-2.5 MG/3 ML AMPUL NEB SCH ×4 (08:10→20:14)
[2019-07-02 08:49] LABS: ABSOLUTE RETICS # 0.028 10^6/uL (0.028-0.122); RETICULOCYTE COUNT (AUTO) 1.07 % (0.66-2.85)
--- NOTE | 2019-07-02 09:07 | RADIOLOGY REPORT (SQ) ---
EXAM DESCRIPTION: CHEST SINGLE VIEW COMPLETED DATE/TIME: 07/02/2019 8:53 am REASON FOR STUDY: dyspnea, hypoxia COMPARISON: AP view of the chest from 06/25/2019. EXAM PARAMETERS: NUMBER OF VIEWS: One view. TECHNIQUE: An AP view of the chest was obtained. RADIATION DOSE: NA LIMITATIONS: None. FINDINGS: LUNGS AND PLEURA: Increased right upper lobe consolidation. The pleural opacities in the right hemithorax are unchanged. There is no pneumothorax. MEDIASTINUM AND HILAR STRUCTURES: Stable mediastinal and hilar contours. HEART AND VASCULAR STRUCTURES: Stable cardiac silhouette. BONES: No acute findings. HARDWARE: None in the chest. OTHER: No other finding. IMPRESSION: Increased right upper lobe consolidation. TECHNICAL DOCUMENTATION: JOB ID: [id number] Repair Report- All Rights Reserved Reading location - IP/workstation name: [email or web address]
[2019-07-02] MEDS ORDERED: NORMAL SALINE 250 ML IV PRN ×2 (09:17)
[2019-07-02] MEDS: GABAPENTIN 300 MG CAPSULE PO SCH ×2 (10:08→21:17)
[2019-07-02] MEDS: POLYETHYLENE GLYCOL 3350 POWDER 17 GM/1 PACKET PO SCH (10:08)
[2019-07-02] MEDS: HYDROCODONE/ACETAMINOPHEN 5-325 MG TABLET PO PRN ×2 (10:08→17:35)
[2019-07-02] MEDS: DILTIAZEM HCL 30 MG TABLET PO SCH ×2 (10:08→17:35)
[2019-07-02] MEDS: ROPINIROLE HCL 0.25 MG TABLET PO SCH ×2 (10:08→17:35)
[2019-07-02] MEDS: POTASSIUM CHLORIDE 10 MEQ TABLET.ER PO SCH ×2 (10:08→21:21)
[2019-07-02] MEDS: DOCUSATE SODIUM 100 MG CAPSULE PO SCH ×2 (10:09→17:35)
[2019-07-02] MEDS: FLUTICASONE NASAL SPRAY 50 MCG/SPRY 120 SPRAY/16 GM NASL SCH (10:09)
--- NOTE | 2019-07-02 10:19 | PDOC PROGRESS REPORT ---
Subjective Progress Note for:: 07/02/19 Subjective:: unchanged cxr same Reason For Visit: PNA,SEPTIC SHOCK Physical Exam Vital Signs: Temp Pulse Resp BP Pulse Ox 98.2 F 105 H 20 130/81 H 97 07/02/19 07:45 07/02/19 08:10 07/02/19 08:25 07/02/19 07:45 07/02/19 08:25 Intake & Output 07/01/19 07/02/19 07/03/19 06:59 06:59 06:59 Intake Total 1360 642 Output Total 400 400 Balance 960 242 Weight 70.2 kg 70.4 kg General appearance: PRESENT: no acute distress, cooperative, disheveled, well- developed Head exam: PRESENT: atraumatic, normocephalic Eye exam: PRESENT: conjunctiva pale, EOMI. ABSENT: nystagmus, periorbital swelling, scleral icterus Mouth exam: PRESENT: moist, neck supple, tongue midline Neck exam: ABSENT: carotid bruit, JVD, lymphadenopathy, meningismus, tenderness, thyromegaly, tracheal deviation, tracheostomy Respiratory exam: PRESENT: crackles, decreased breath sounds, prolonged expiratory phas, rhonchi, unlabored. ABSENT: retraction Cardiovascular exam: PRESENT: RRR, +S1, +S2 Pulses: PRESENT: normal radial pulses GI/Abdominal exam: ABSENT: firm, guarding, mass, rebound, tenderness Extremities exam: ABSENT: calf tenderness, clubbing, joint swelling, tenderness Musculoskeletal exam: ABSENT: deformity, dislocation Neurological exam: PRESENT: alert, awake Psychiatric exam: PRESENT: flat affect Skin exam: PRESENT: dry, other Results Laboratory Results: 07/02/19 06:40 07/02/19 06:40 07/02/19 07/02/19 07/02/19 06:40 06:40 06:40 WBC 12.4 H RBC 2.58 L Hgb 7.1 L Hct 22.2 L MCV 86 MCH 27.4 MCHC 31.8 L RDW 17.7 H Plt Count 440 Retic Count (auto) 1.07 Sodium 140.5 Potassium 5.1 H Chloride 107 Carbon Dioxide 30 Anion Gap 4 L BUN 10 Creatinine 0.62 Est GFR ( Amer) > 60 Glucose 63 L Calcium 8.7 Blood Type Antibody Screen 07/02/19 08:23 WBC RBC Hgb Hct MCV MCH MCHC RDW Plt Count Retic Count (auto) Sodium Potassium Chloride Carbon Dioxide Anion Gap BUN Creatinine Est GFR ( Amer) Glucose Calcium Blood Type A POSITIVE Antibody Screen NEGATIVE 06/05/19 06/05/19 06/08/19 21:52 22:51 01:10 Creatine Kinase Cancelled CK-MB (CK-2) Troponin I Cancelled < 0.012 NT-Pro-B Natriuret Pep Cancelled [id number] H 06/08/19 06/08/19 06/14/19 01:10 02:00 04:40 Creatine Kinase < 20 L < 20 L CK-MB (CK-2) 1.21 Troponin I 0.032 NT-Pro-B Natriuret Pep [id number] H 06/14/19 04:40 Creatine Kinase CK-MB (CK-2) < 0.22 Troponin I < 0.012 NT-Pro-B Natriuret Pep Impressions: KUB X-Ray 06/06/19 00:00 IMPRESSION: Nasogastric tube in the gastric body Femoral line in place on the right Abdomen/Pelvis CT 06/10/19 00:00 IMPRESSION: 1. Extensive lung findings as above. When compared to 06/06/2019, right pleural effusion is slightly progressive and there is a new small left pleural effusion. Consolidation in the right lung has improved. Progressive interstitial infiltrate in the right upper lobe with new patchy interstitial infiltrate in the left upper lobe. 2. Other findings as above, stable. IMPRESSION: 1. Limited abdominal valuation given noncontrast technique, motion and external source artifacts as described. 2. Ascites. No overt bowel or urinary obstruction. 3. Generalized soft tissue edema/anasarca. Head CT 06/11/19 00:00 IMPRESSION: 1. No acute intracranial findings. Thoracentesis Ultrasound 06/11/19 00:00 IMPRESSION: SUCCESSFUL THORACENTESIS USING ULTRASOUND GUIDANCE. Head MRI 06/24/19 00:00 IMPRESSION: 1. Chronic brain changes, small vessel disease and mild atrophy. No recent CVA or acute intracranial abnormality allowing for bilateral mastoid disease. EVIDENCE OF ACUTE STROKE: NO. Chest CT 06/25/19 00:00 IMPRESSION: 1. Mild improvement aeration in the right upper lobe. There is persistent dense consolidation consistent with pneumonia. Lack of IV contrast limits evaluation for soft tissue masses. 2. Increasing right-sided pleural effusion. 3. New moderate size left pleural effusion. Chest X-Ray 07/02/19 07:00 IMPRESSION: Increased right upper lobe consolidation. Assessment & Plan - Diagnosis (1) COPD (chronic obstructive pulmonary disease) Qualifiers: COPD type: emphysema Emphysema type: centrilobular Qualified Code(s): J43.2 - Centrilobular emphysema Is this a current diagnosis for this admission?: Yes Plan: Generic Name Dose Route Start Last Admin Trade Name Freq PRN Reason Stop Dose Admin Albuterol 2.5 mg 06/11/19 03:52 Ventolin 0.083% Neb 2.5 Mg/3 Ml Ampul NEB 07/11/19 03:51 RTQ2HP PRN FOR WHEEZING Albuterol/Ipratropium 3 ml 06/19/19 12:00 06/28/19 11:55 Duoneb 3 Ml Ampul NEB 07/19/19 11:59 3 ml RTQID AHMET Fluticasone Propionate 2 spray 06/13/19 11:30 06/28/19 10:41 Flonase Nasal [place] 50 Mcg/[place] 16 Gm NASL 07/13/19 11:29 2 spr DAILY AHMET Acetylcysteine 600 mg 06/28/19 20:00 Mucomist 20% Soln 800 Mg/4 Ml NEB 07/28/19 19:59 RTBID AHMET (2) HCAP (healthcare-associated pneumonia) Is this a current diagnosis for this admission?: Yes Plan: no leucocytosis afebrile (3) Lung mass Is this a current diagnosis for this admission?: Yes Plan: schedule for broncoscopy - Time Time Spent with patient: 25-34 minutes Level of Care: [facility]
[2019-07-02 11:11] LABS: FOLATE 3.82 ng/mL (>2.76)
[2019-07-02 11:12] LABS: IRON(TIBC) < 10.1 ug/dL (37-170)
[2019-07-02 11:31] LABS: INTERNATIONAL RATION (INR) 1.31; PROTHROMBIN TIME 16.3 SEC (11.4-15.4)
[2019-07-02 11:32] LABS: PARTIAL THROMBOPLASTIN TIME 37.7 SEC (23.5-35.8)
--- NOTE | 2019-07-02 14:56 | PDOC PROGRESS REPORT ---
Subjective Progress Note for:: 07/02/19 Subjective:: The patient is a 63-year-old female with a past medical history of non-STEMI, COPD, anemia, opiate dependent chronic pain, polypharmacy, depression, and substance abuse who was admitted 06/06/2019 to the ICU for septic shock secondary to community-acquired pneumonia. Patient was seen on morning rounds. She was found resting in bed, comfortably, on BiPAP. She is A&Ox4. She does report continued dyspnea while at rest and increased sputum production. Overall, feeling much better, however, does note that she has not improved over the weekend despite increased frequency of pulmonary toilet and chest physiotherapy. She denies fever, chills, chest pain, orthopnea, abdominal pain, nausea and vomiting. Discussed recommendations to continue with planned bronchoscopy with Dr. Guthrie. All questions and concerns answered. No concerns per nursing. Reason For Visit: PNA,SEPTIC SHOCK Physical Exam Vital Signs: Temp Pulse Resp BP Pulse Ox 99.8 F 107 H 21 H 123/76 95 07/02/19 12:14 07/02/19 12:17 07/02/19 12:17 07/02/19 12:14 07/02/19 12:17 Intake & Output 07/01/19 07/02/19 07/03/19 06:59 06:59 06:59 Intake Total 1360 642 240 Output Total 400 400 Balance 960 242 240 Weight 70.2 kg 70.4 kg General appearance: PRESENT: no acute distress, cooperative, well-developed, well-nourished, other - Frail, chronically ill-appearing Head exam: PRESENT: atraumatic, normocephalic Eye exam: PRESENT: conjunctiva pink, EOMI, PERRLA. ABSENT: scleral icterus Ear exam: PRESENT: normal external ear exam Mouth exam: PRESENT: moist, tongue midline Teeth exam: PRESENT: edentulous - Dentures Respiratory exam: PRESENT: decreased breath sounds - Right lower field, p rolonged expiratory phas, rhonchi - Right upper, symmetrical, unlabored, other - BiPAP. ABSENT: rales, wheezes Cardiovascular exam: PRESENT: RRR, +S1, +S2. ABSENT: diastolic murmur, rubs, systolic murmur Pulses: PRESENT: normal dorsalis pedis pul Vascular exam: PRESENT: normal capillary refill GI/Abdominal exam: PRESENT: normal bowel sounds, soft. ABSENT: distended, guarding, mass, organolmegaly, rebound, tenderness Rectal exam: PRESENT: deferred Extremities exam: PRESENT: full ROM. ABSENT: calf tenderness, clubbing, pedal edema Neurological exam: PRESENT: alert, awake, oriented to person, oriented to place, oriented to time, oriented to situation, CN II-XII grossly intact. ABSENT: motor sensory deficit Psychiatric exam: PRESENT: anxious, appropriate affect, normal mood. ABSENT: homicidal ideation, suicidal ideation Skin exam: PRESENT: dry, intact, warm. ABSENT: cyanosis, rash Results Laboratory Results: 07/02/19 06:40 07/02/19 06:40 07/02/19 07/02/19 07/02/19 06:40 06:40 06:40 WBC 12.4 H RBC 2.58 L Hgb 7.1 L Hct 22.2 L MCV 86 MCH 27.4 MCHC 31.8 L RDW 17.7 H Plt Count 440 Retic Count (auto) Sodium 140.5 Potassium 5.1 H Chloride 107 Carbon Dioxide 30 Anion Gap 4 L BUN 10 Creatinine 0.62 Est GFR ( Amer) > 60 Glucose 63 L Calcium 8.7 Iron < 10.1 L TIBC 144 L Ferritin 292.00 H Vitamin B12 673.0 Folate 3.82 Blood Type Antibody Screen 07/02/19 07/02/19 06:40 08:23 WBC RBC Hgb Hct MCV MCH MCHC RDW Plt Count Retic Count (auto) 1.07 Sodium Potassium Chloride Carbon Dioxide Anion Gap BUN Creatinine Est GFR ( Amer) Glucose Calcium Iron TIBC Ferritin Vitamin B12 Folate Blood Type A POSITIVE Antibody Screen NEGATIVE 06/05/19 06/05/19 06/08/19 21:52 22:51 01:10 Creatine Kinase Cancelled CK-MB (CK-2) Troponin I Cancelled < 0.012 NT-Pro-B Natriuret Pep Cancelled [id number] H 06/08/19 06/08/19 06/14/19 01:10 02:00 04:40 Creatine Kinase < 20 L < 20 L CK-MB (CK-2) 1.21 Troponin I 0.032 NT-Pro-B Natriuret Pep [id number] H 06/14/19 04:40 Creatine Kinase CK-MB (CK-2) < 0.22 Troponin I < 0.012 NT-Pro-B Natriuret Pep Impressions: KUB X-Ray 06/06/19 00:00 IMPRESSION: Nasogastric tube in the gastric body Femoral line in place on the right Abdomen/Pelvis CT 06/10/19 00:00 IMPRESSION: 1. Extensive lung findings as above. When compared to 06/06/2019, right pleural effusion is slightly progressive and there is a new small left pleural effusion. Consolidation in the right lung has improved. Progressive interstitial infiltrate in the right upper lobe with new patchy interstitial infiltrate in the left upper lobe. 2. Other findings as above, stable. IMPRESSION: 1. Limited abdominal valuation given noncontrast technique, motion and external source artifacts as described. 2. Ascites. No overt bowel or urinary obstruction. 3. Generalized soft tissue edema/anasarca. Head CT 06/11/19 00:00 IMPRESSION: 1. No acute intracranial findings. Thoracentesis Ultrasound 06/11/19 00:00 IMPRESSION: SUCCESSFUL THORACENTESIS USING ULTRASOUND GUIDANCE. Head MRI 06/24/19 00:00 IMPRESSION: 1. Chronic brain changes, small vessel disease and mild atrophy. No recent CVA or acute intracranial abnormality allowing for bilateral mastoid disease. EVIDENCE OF ACUTE STROKE: NO. Chest CT 06/25/19 00:00 IMPRESSION: 1. Mild improvement aeration in the right upper lobe. There is persistent dense consolidation consistent with pneumonia. Lack of IV contrast limits evaluation for soft tissue masses. 2. Increasing right-sided pleural effusion. 3. New moderate size left pleural effusion. Chest X-Ray 07/02/19 07:00 IMPRESSION: Increased right upper lobe consolidation. Assessment and Plan - Diagnosis (1) Pneumonia due to Escherichia coli Qualifiers: Laterality: right Lung location: upper lobe of lung Qualified Code(s): J15.5 - Pneumonia due to Escherichia coli Is this a current diagnosis for this admission?: Yes Plan: Now tolerating short periods off of BiPAP; nasal cannula at 3 L/min. She is not home O2 dependent. CXR today shows dense RUL consolidation; worse than previous Continues on supplemental oxygen via nasal cannula and BiPAP as needed Receiving scheduled and as needed nebulizer treatments. Continue Mucomyst nebs. Received full course of IV meropenem. Pulmonary toilet with IS, Flutter, and chest physiotherapy. Pulmonology is consulted; discussed with Dr. Guthrie. Will move forward with arranging for bronchoscopy. (2) Acute respiratory failure with hypoxia Is this a current diagnosis for this admission?: Yes Plan: Gradual improvements Secondary to right upper lobe pneumonia. Evaluation management as above. (3) Leukocytosis Qualifiers: Leukocytosis type: unspecified Qualified Code(s): D72.829 - Elevated white blood cell count, unspecified Is this a current diagnosis for this admission?: Yes Plan: Overall, trending down; 4.1-> 42.7->14.8-> 16.7-> 26.5-> 15.3-> 17.7-> 15.0-> 14.2-> 12.6-> 12.4 Received full course of meropenem for treatment of PNA and E. coli bacteremia. Meropenem was resumed (06/21/19) by the ICU provide due to significant jump in WBC (16->26). Discontinued 06/27. Vancomycin resumed (06/25/19). Discontinued 06/27 Follow up CXR and Chest CT shows reconsolidation of RUL. Infectious disease was consulted; greatly appreciate Dr. Nicolas's evaluation and recommendations. Leukocytosis likely stress/inflammatory reaction. Have discontinued IV vancomycin and meropenem Continue to monitor CBC. Observe for objective signs of worsening infection to warrant additional antibiotics. (4) Anemia Qualifiers: Anemia type: iron deficiency Iron deficiency anemia type: chronic blood loss Qualified Code(s): D50.0 - Iron deficiency anemia secondary to blood loss (chronic) Is this a current diagnosis for this admission?: Yes Plan: Hgb 11.4 on admission Has already received 1 unit PRBC this admission. Has slowly drifted down to 7.1 Secondary to iron deficiency anemia, prolonged acute illness, concern for underlying malignancy (right upper lobe). We will provide an additional 1 unit PRBC today. Continue multivitamin. Continue iron supplementation. (5) Urinary retention Is this a current diagnosis for this admission?: Yes Plan: Urinalysis negative. Constipation resolved. Encouraged p.o. fluids. Attempt OOB to commode for voids. Decrease narcotics. Bladder scan every 8 hours and straight cath for greater than 200. (6) Acute kidney injury (KATHLEEN) with acute tubular necrosis (ATN) Is this a current diagnosis for this admission?: Yes Plan: Resolved. Encourage p.o. fluids. Avoid nephrotoxic medications as able. Strict I&Os Follow-up chemistry. (7) Dehydration Is this a current diagnosis for this admission?: Yes Plan: Resolved. (8) Thrombocytopenia Is this a current diagnosis for this admission?: Yes Plan: Resolved. Continue subcutaneous heparin prophylaxis (9) Acute metabolic encephalopathy Is this a current diagnosis for this admission?: Yes Plan: Resolved. (10) Diarrhea Qualifiers: Diarrhea type: unspecified type Qualified Code(s): R19.7 - Diarrhea, unspecified Is this a current diagnosis for this admission?: Yes Plan: Resolved. Probable cause of hyponatremia and volume loss. May be source of bacteremia. (11) Sepsis with acute organ dysfunction and septic shock Qualifiers: Sepsis type: Escherichia coli Severe sepsis acute organ dysfunction type: acute renal failure Acute renal failure type: with acute tubular necrosis Qualified Code(s): A41.51 - Sepsis due to Escherichia coli [E. coli]; R65.21 - Severe sepsis with septic shock; N17.0 - Acute kidney failure with tubular necrosis Is this a current diagnosis for this admission?: Yes Plan: Resolved. Received Midodrine and steroid therapy while in the ICU; these have been weaned off. (12) Hypo-osmolar hyponatremia Is this a current diagnosis for this admission?: Yes Plan: Resolved. Based on urinary sodium and presentation, appears to be related to [id number] hyponatremia. (13) E coli bacteremia Is this a current diagnosis for this admission?: Yes Plan: Received full course of IV abx as guided by Infectious Disease. (14) Debility Is this a current diagnosis for this admission?: Yes Plan: Following prolonged ICU admission. PT/OT consulted. Discharge planning consulted. (15) Constipation Is this a current diagnosis for this admission?: Yes Plan: Resolved. Colace twice daily. MiraLAX daily. Milk of mag as needed. Soapsuds enema x1. Increase mobility - Time Time Spent with patient: 35 or more minutes Medications reviewed and adjusted accordingly: Yes Anticipated discharge: SNF
[2019-07-02] MEDS: FERROUS SULFATE 325 MG TABLET PO SCH (17:35)
[2019-07-02 19:13] LABS: HEMATOCRIT 28.8 % (36.0-47.0); MEAN CORPUSCULAR HEMOGLOBIN 28.1 pg (27.0-33.4); MEAN CORPUSCULAR HGB CONC 32.7 g/dL (32.0-36.0); MEAN CORPUSCULAR VOLUME 86 fl (80-97); PLATELET COUNT 486 10^3/uL (150-450); RED BLOOD COUNT 3.35 10^6/uL (3.72-5.28); RED CELL DISTRIBUTION WIDTH 16.5 % (11.5-14.0); WHITE BLOOD COUNT 16.6 10^3/uL (4.0-10.5)
[2019-07-02 19:14] LABS: HEMOGLOBIN 9.4 g/dL (12.0-15.5)
[2019-07-02] MEDS: CITALOPRAM HYDROBROMIDE 20 MG TABLET PO SCH (21:17)
[2019-07-02] MEDS: LATANOPROST 0.005% OPH SOLN 2.5 ML OU SCH (21:20)
[2019-07-03] MEDS: HEPARIN SOD (PORCINE) 5,000 UNIT/ML 1 ML VIAL SUBCUT SCH ×3 (05:24→21:21)
[2019-07-03 05:29] LABS: HEMATOCRIT 27.1 % (36.0-47.0); HEMOGLOBIN 8.9 g/dL (12.0-15.5); MEAN CORPUSCULAR HEMOGLOBIN 28.5 pg (27.0-33.4); MEAN CORPUSCULAR VOLUME 87 fl (80-97); PLATELET COUNT 453 10^3/uL (150-450); RED BLOOD COUNT 3.13 10^6/uL (3.72-5.28); RED CELL DISTRIBUTION WIDTH 16.8 % (11.5-14.0); WHITE BLOOD COUNT 14.7 10^3/uL (4.0-10.5)
[2019-07-03 06:08] LABS: ALBUMIN 2.2 g/dL (3.5-5.0); ALKALINE PHOSPHATASE 63 U/L (38-126); ANION GAP 5 (5-19); ASPARTATE AMINO TRANSFERASE 14 U/L (14-36); BILIRUBIN,DIRECT 0.3 mg/dL (0.0-0.4); BILIRUBIN,TOTAL 0.3 mg/dL (0.2-1.3); BLOOD UREA NITROGEN 11 mg/dL (7-20); CALCIUM 8.8 mg/dL (8.4-10.2); CARBON DIOXIDE 30 mmol/L (22-30); CHLORIDE 106 mmol/L (98-107); POTASSIUM 4.9 mmol/L (3.6-5.0); TOTAL PROTEIN 4.5 g/dL (6.3-8.2)
[2019-07-03 06:13] LABS: GLUCOSE 65 mg/dL (75-110)
[2019-07-03] MEDS: ACETYLCYSTEINE 20% SOLN 800 MG/4 ML VIAL.NEB NEB SCH (08:02)
[2019-07-03] MEDS: IPRATROPIUM/ALBUTEROL 0.5-2.5 MG/3 ML AMPUL NEB SCH ×4 (08:02→20:13)
[2019-07-03] MEDS: ROPINIROLE HCL 0.25 MG TABLET PO SCH ×2 (09:14→17:13)
[2019-07-03] MEDS: POLYETHYLENE GLYCOL 3350 POWDER 17 GM/1 PACKET PO SCH (09:14)
[2019-07-03] MEDS: DOCUSATE SODIUM 100 MG CAPSULE PO SCH ×2 (09:14→17:14)
[2019-07-03] MEDS: MULTIVITAMIN TABLET PO SCH (09:14)
[2019-07-03] MEDS: GABAPENTIN 300 MG CAPSULE PO SCH ×2 (09:14→21:23)
[2019-07-03] MEDS: FERROUS SULFATE 325 MG TABLET PO SCH ×2 (09:14→17:14)
[2019-07-03] MEDS: POTASSIUM CHLORIDE 10 MEQ TABLET.ER PO SCH ×2 (09:15→21:21)
[2019-07-03] MEDS: DILTIAZEM HCL 30 MG TABLET PO SCH ×2 (09:17→17:13)
[2019-07-03] MEDS: FLUTICASONE NASAL SPRAY 50 MCG/SPRY 120 SPRAY/16 GM NASL SCH (09:17)
--- NOTE | 2019-07-03 14:36 | PDOC PROGRESS REPORT ---
Subjective Progress Note for:: 07/03/19 Subjective:: fob in am Reason For Visit: PNA,SEPTIC SHOCK Physical Exam Vital Signs: Temp Pulse Resp BP Pulse Ox 99.0 F 98 18 126/70 H 93 07/03/19 11:12 07/03/19 12:17 07/03/19 12:17 07/03/19 11:12 07/03/19 12:17 Intake & Output 07/02/19 07/03/19 07/04/19 06:59 06:59 06:59 Intake Total 642 896 300 Output Total 400 700 Balance 242 196 300 Weight 70.4 kg 66 kg General appearance: PRESENT: no acute distress, cooperative, disheveled, well- developed, well-nourished Head exam: PRESENT: atraumatic, normocephalic Eye exam: PRESENT: conjunctiva pale, EOMI. ABSENT: nystagmus, periorbital swelling, scleral icterus Mouth exam: PRESENT: dry mucosa, neck supple, tongue midline Neck exam: ABSENT: carotid bruit, full ROM, JVD, lymphadenopathy, meningismus, tenderness, thyromegaly, tracheal deviation, tracheostomy, other Respiratory exam: PRESENT: decreased breath sounds, prolonged expiratory phas, rales, rhonchi, unlabored. ABSENT: retraction, stridor, tachypnea Cardiovascular exam: PRESENT: RRR, +S1, +S2 Pulses: PRESENT: normal radial pulses GI/Abdominal exam: PRESENT: soft. ABSENT: guarding, mass, rebound, tenderness Extremities exam: ABSENT: calf tenderness, clubbing, joint swelling, pedal edema, tenderness Musculoskeletal exam: ABSENT: ambulatory, deformity, dislocation Neurological exam: PRESENT: alert, awake Psychiatric exam: PRESENT: appropriate affect Skin exam: PRESENT: dry, warm Results Laboratory Results: 07/03/19 04:40 07/03/19 04:40 07/02/19 07/03/19 07/03/19 18:57 04:40 04:40 WBC 16.6 H 14.7 H RBC 3.35 L 3.13 L Hgb 9.4 L D 8.9 L Hct 28.8 L 27.1 L MCV 86 87 MCH 28.1 28.5 MCHC 32.7 33.0 RDW 16.5 H 16.8 H Plt Count 486 H 453 H Sodium 140.8 Potassium 4.9 Chloride 106 Carbon Dioxide 30 Anion Gap 5 BUN 11 Creatinine 0.77 Est GFR ( Amer) > 60 Glucose 65 L Calcium 8.8 Total Bilirubin 0.3 AST 14 Alkaline Phosphatase 63 Total Protein 4.5 L Albumin 2.2 L 06/05/19 06/05/19 06/08/19 21:52 22:51 01:10 Creatine Kinase Cancelled CK-MB (CK-2) Troponin I Cancelled < 0.012 NT-Pro-B Natriuret Pep Cancelled [id number] H 06/08/19 06/08/19 06/14/19 01:10 02:00 04:40 Creatine Kinase < 20 L < 20 L CK-MB (CK-2) 1.21 Troponin I 0.032 NT-Pro-B Natriuret Pep [id number] H 06/14/19 04:40 Creatine Kinase CK-MB (CK-2) < 0.22 Troponin I < 0.012 NT-Pro-B Natriuret Pep Impressions: KUB X-Ray 06/06/19 00:00 IMPRESSION: Nasogastric tube in the gastric body Femoral line in place on the right Abdomen/Pelvis CT 06/10/19 00:00 IMPRESSION: 1. Extensive lung findings as above. When compared to 06/06/2019, right pleural effusion is slightly progressive and there is a new small left pleural effusion. Consolidation in the right lung has improved. Progressive interstitial infiltrate in the right upper lobe with new patchy interstitial infiltrate in the left upper lobe. 2. Other findings as above, stable. IMPRESSION: 1. Limited abdominal valuation given noncontrast technique, motion and external source artifacts as described. 2. Ascites. No overt bowel or urinary obstruction. 3. Generalized soft tissue edema/anasarca. Head CT 06/11/19 00:00 IMPRESSION: 1. No acute intracranial findings. Thoracentesis Ultrasound 06/11/19 00:00 IMPRESSION: SUCCESSFUL THORACENTESIS USING ULTRASOUND GUIDANCE. Head MRI 06/24/19 00:00 IMPRESSION: 1. Chronic brain changes, small vessel disease and mild atrophy. No recent CVA or acute intracranial abnormality allowing for bilateral mastoid disease. EVIDENCE OF ACUTE STROKE: NO. Chest CT 06/25/19 00:00 IMPRESSION: 1. Mild improvement aeration in the right upper lobe. There is persistent dense consolidation consistent with pneumonia. Lack of IV contrast limits evaluation for soft tissue masses. 2. Increasing right-sided pleural effusion. 3. New moderate size left pleural effusion. Chest X-Ray 07/02/19 07:00 IMPRESSION: Increased right upper lobe consolidation. Assessment & Plan - Diagnosis (1) COPD (chronic obstructive pulmonary disease) Qualifiers: COPD type: emphysema Emphysema type: centrilobular Qualified Code(s): J43.2 - Centrilobular emphysema Is this a current diagnosis for this admission?: Yes (2) HCAP (healthcare-associated pneumonia) Is this a current diagnosis for this admission?: Yes (3) Lung mass Is this a current diagnosis for this admission?: Yes Plan: FOB w/bal tbb in am - Time Time Spent with patient: 15-24 minutes Level of Care: IMCU
[2019-07-03] MEDS ORDERED: BETHANECHOL CHLORIDE 25 MG TABLET PO ONE (15:46)
--- NOTE | 2019-07-03 15:51 | PDOC PROGRESS REPORT ---
Subjective Progress Note for:: 07/03/19 Subjective:: The patient is resting in bed. The patient has had difficulty urinating. Sometimes she gets a sensation and other times not. She has been getting straight catheterizations. We will consider trial of bethanechol. Her breathing is still not significantly better and she is moving limited air in her right upper lobe. She has planned to undergo bronchoscopy tomorrow. Reason For Visit: PNA,SEPTIC SHOCK Physical Exam Vital Signs: Temp Pulse Resp BP Pulse Ox 99.0 F 98 18 126/70 H 93 07/03/19 11:12 07/03/19 12:17 07/03/19 12:17 07/03/19 11:12 07/03/19 12:17 Intake & Output 07/02/19 07/03/19 07/04/19 06:59 06:59 06:59 Intake Total 642 896 300 Output Total 400 700 Balance 242 196 300 Weight 70.4 kg 66 kg 66 kg General appearance: PRESENT: no acute distress, cooperative, well-developed Head exam: PRESENT: atraumatic, normocephalic Eye exam: PRESENT: conjunctiva pale. ABSENT: scleral icterus Ear exam: PRESENT: normal external ear exam. ABSENT: bleeding, drainage Respiratory exam: PRESENT: decreased breath sounds - Especially right upper lobe, symmetrical, other - Decreased inspiratory phase. ABSENT: tachypnea, wheezes Cardiovascular exam: PRESENT: RRR, +S1, +S2, systolic murmur - 3 of 6 GI/Abdominal exam: PRESENT: normal bowel sounds, soft. ABSENT: distended, tenderness Extremities exam: PRESENT: pedal edema, +1 edema Musculoskeletal exam: PRESENT: ambulatory Neurological exam: PRESENT: alert, awake, oriented to person, oriented to place, oriented to time, oriented to situation, CN II-XII grossly intact Psychiatric exam: PRESENT: flat affect. ABSENT: agitated, anxious Focused psych exam: ABSENT: delusional, restlessness Skin exam: PRESENT: dry, pallor, warm. ABSENT: rash Results Laboratory Results: 07/03/19 04:40 07/03/19 04:40 07/02/19 07/03/19 07/03/19 18:57 04:40 04:40 WBC 16.6 H 14.7 H RBC 3.35 L 3.13 L Hgb 9.4 L D 8.9 L Hct 28.8 L 27.1 L MCV 86 87 MCH 28.1 28.5 MCHC 32.7 33.0 RDW 16.5 H 16.8 H Plt Count 486 H 453 H Sodium 140.8 Potassium 4.9 Chloride 106 Carbon Dioxide 30 Anion Gap 5 BUN 11 Creatinine 0.77 Est GFR ( Amer) > 60 Glucose 65 L Calcium 8.8 Total Bilirubin 0.3 AST 14 Alkaline Phosphatase 63 Total Protein 4.5 L Albumin 2.2 L 06/05/19 06/05/19 06/08/19 21:52 22:51 01:10 Creatine Kinase Cancelled CK-MB (CK-2) Troponin I Cancelled < 0.012 NT-Pro-B Natriuret Pep Cancelled [id number] H 06/08/19 06/08/19 06/14/19 01:10 02:00 04:40 Creatine Kinase < 20 L < 20 L CK-MB (CK-2) 1.21 Troponin I 0.032 NT-Pro-B Natriuret Pep [id number] H 06/14/19 04:40 Creatine Kinase CK-MB (CK-2) < 0.22 Troponin I < 0.012 NT-Pro-B Natriuret Pep Impressions: KUB X-Ray 06/06/19 00:00 IMPRESSION: Nasogastric tube in the gastric body Femoral line in place on the right Abdomen/Pelvis CT 06/10/19 00:00 IMPRESSION: 1. Extensive lung findings as above. When compared to 06/06/2019, right pleural effusion is slightly progressive and there is a new small left pleural effusion. Consolidation in the right lung has improved. Progressive interstitial infiltrate in the right upper lobe with new patchy interstitial infiltrate in the left upper lobe. 2. Other findings as above, stable. IMPRESSION: 1. Limited abdominal valuation given noncontrast technique, motion and external source artifacts as described. 2. Ascites. No overt bowel or urinary obstruction. 3. Generalized soft tissue edema/anasarca. Head CT 06/11/19 00:00 IMPRESSION: 1. No acute intracranial findings. Thoracentesis Ultrasound 06/11/19 00:00 IMPRESSION: SUCCESSFUL THORACENTESIS USING ULTRASOUND GUIDANCE. Head MRI 06/24/19 00:00 IMPRESSION: 1. Chronic brain changes, small vessel disease and mild atrophy. No recent CVA or acute intracranial abnormality allowing for bilateral mastoid disease. EVIDENCE OF ACUTE STROKE: NO. Chest CT 06/25/19 00:00 IMPRESSION: 1. Mild improvement aeration in the right upper lobe. There is persistent dense consolidation consistent with pneumonia. Lack of IV contrast limits evaluation for soft tissue masses. 2. Increasing right-sided pleural effusion. 3. New moderate size left pleural effusion. Chest X-Ray 07/02/19 07:00 IMPRESSION: Increased right upper lobe consolidation. Assessment and Plan - Diagnosis (1) Pneumonia due to Escherichia coli Qualifiers: Laterality: right Lung location: upper lobe of lung Qualified Code(s): J15.5 - Pneumonia due to Escherichia coli Is this a current diagnosis for this admission?: Yes Plan: Right upper lobe pneumonia does not seem to be resolving. The patient is scheduled for bronchoscopy today. And E. coli pneumonia was likely the etiology for the E. coli bacteremia. Await results of bronchoscopy to determine if additional antibiotic therapy is required. Patient has had a bad reaction to the last several Mucomyst treatments and therefore the Mucomyst was discontinued. (2) Acute respiratory failure with hypoxia Is this a current diagnosis for this admission?: Yes Plan: Down to nasal cannula at this point. Bronchoscopy should be helpful with regard to pathology of right upper lobe. (3) Leukocytosis Qualifiers: Leukocytosis type: unspecified Qualified Code(s): D72.829 - Elevated white blood cell count, unspecified Is this a current diagnosis for this admission?: Yes Plan: White blood cell count is still elevated. This is likely related to the ongoing infectious process in her lung. Currently off antibiotics. Based on results of bronchoscopy will discuss with pulmonology for possible resumption. (4) Anemia Qualifiers: Anemia type: iron deficiency Iron deficiency anemia type: chronic blood loss Qualified Code(s): D50.0 - Iron deficiency anemia secondary to blood loss (chronic) Is this a current diagnosis for this admission?: Yes Plan: Severely depleted iron stores. The patient did receive 2 units of packed red blood cells. Hemoglobin is drifting down slowly. We will continue to monitor. Now on oral iron supplement. (5) Urinary retention Is this a current diagnosis for this admission?: Yes Plan: Still requiring straight catheterization. A trial of bethanechol yesterday. Will review with nursing to see if it was effective. If it was we can continue. Narcotics have been minimized. We will continue to monitor. We will try and encourage out of bed to commode. (6) Acute kidney injury (KATHLEEN) with acute tubular necrosis (ATN) Is this a current diagnosis for this admission?: Yes Plan: Secondary to infection and sepsis. Resolved. Continue to monitor renal function. (7) Dehydration Is this a current diagnosis for this admission?: Yes Plan: Resolved. Continue to monitor intake and output. (8) Thrombocytopenia Is this a current diagnosis for this admission?: Yes Plan: Likely due to acute illness. Currently resolved. In fact currently exhibiting slightly increased platelet count. (9) Acute metabolic encephalopathy Is this a current diagnosis for this admission?: Yes Plan: Secondary to sepsis and infection. Resolved. (10) Constipation Is this a current diagnosis for this admission?: Yes Plan: Developed as an inpatient. Currently on a regimen of Colace, MiraLAX with as needed milk of magnesia. Increased mobility will help. Continue to monitor bowel movements. (11) Diarrhea Qualifiers: Diarrhea type: unspecified type Qualified Code(s): R19.7 - Diarrhea, unspecified Is this a current diagnosis for this admission?: Yes Plan: Present on admission. Subsequently resolved. (12) E coli bacteremia Is this a current diagnosis for this admission?: Yes Plan: Resolved. Received complete course of antibiotic therapy. (13) Hypo-osmolar hyponatremia Is this a current diagnosis for this admission?: Yes Plan: Present on admission. Likely due to overall critical illness. Resolved at this time. (14) Sepsis with acute organ dysfunction and septic shock Qualifiers: Sepsis type: Escherichia coli Severe sepsis acute organ dysfunction type: acute renal failure Acute renal failure type: with acute tubular necrosis Qualified Code(s): A41.51 - Sepsis due to Escherichia coli [E. coli]; R65.21 - Severe sepsis with septic shock; N17.0 - Acute kidney failure with tubular necrosis Is this a current diagnosis for this admission?: Yes Plan: Resolved. (15) Debility Is this a current diagnosis for this admission?: Yes Plan: Likely critical illness myopathy however patient was at a half-way facility recovering from a recent admission for GI bleeding. Continue physical therapy. - Plan Summary Summary: For bronchoscopy tomorrow. Alterations in treatment plan will be based on bronchoscopy results. - Time Time Spent with patient: 25-34 minutes Medications reviewed and adjusted accordingly: Yes
[2019-07-03] MEDS: HYDROCODONE/ACETAMINOPHEN 5-325 MG TABLET PO PRN (16:42)
[2019-07-03] MEDS ORDERED: DEXTROSE 40% GEL 15 GM TUBE PO PRN (17:49)
[2019-07-03] MEDS ORDERED: DEXTROSE 50%-WATER 25 GM/50 ML DISP.SYRIN IV PRN (17:49)
[2019-07-03] MEDS ORDERED: GLUCAGON,HUMAN RECOMB 1 MG INJ SUBCUT PRN (17:49)
[2019-07-03] MEDS: CITALOPRAM HYDROBROMIDE 20 MG TABLET PO SCH (21:23)
[2019-07-03] MEDS: LATANOPROST 0.005% OPH SOLN 2.5 ML OU SCH (21:24)
[2019-07-03 23:33] LABS: APPEARANCE,URINE CLEAR; BILIRUBIN,URINE NEGATIVE (NEGATIVE); COLOR,URINE YELLOW; GLUCOSE, URINE NEGATIVE (NEGATIVE); KETONES,URINE NEGATIVE (NEGATIVE); PROTEIN,URINE 30 mg/dL (NEGATIVE); URINE SPECIFIC GRAVITY 1.012; UROBILINOGEN,URINE NEGATIVE mg/dL (<2.0)
[2019-07-04] MEDS: HEPARIN SOD (PORCINE) 5,000 UNIT/ML 1 ML VIAL SUBCUT SCH ×3 (05:06→21:27)
[2019-07-04] MEDS: IPRATROPIUM/ALBUTEROL 0.5-2.5 MG/3 ML AMPUL NEB SCH ×4 (08:35→20:52)
[2019-07-04] MEDS ORDERED: BUPIVACAINE INJ/PF LIPOSOME/PF 266 MG/20 ML SDV ONE (09:24)
[2019-07-04] MEDS ORDERED: FENTANYL CITRATE INJ/PF 100 MCG/2 ML AMPUL ONE (09:36)
[2019-07-04] MEDS ORDERED: PROPOFOL INJ 200 MG/20 ML VIAL IV ONE (09:36)
[2019-07-04] MEDS ORDERED: MIDAZOLAM 2 MG/2 ML INJ ONE (09:36)
[2019-07-04] MEDS ORDERED: ONDANSETRON HCL INJ/PF 4 MG/2 ML SDV ONE (09:36)
[2019-07-04] MEDS ORDERED: LIDOCAINE 2% INJ (20 MG/ML) 20 ML MDV ONE (09:42)
[2019-07-04] MEDS: FERROUS SULFATE 325 MG TABLET PO SCH ×2 (10:37→18:05)
[2019-07-04] MEDS: GABAPENTIN 300 MG CAPSULE PO SCH ×2 (11:15→21:20)
[2019-07-04] MEDS: DILTIAZEM HCL 30 MG TABLET PO SCH ×2 (11:15→18:05)
[2019-07-04] MEDS: ROPINIROLE HCL 0.25 MG TABLET PO SCH ×2 (11:15→18:06)
[2019-07-04] MEDS: MULTIVITAMIN TABLET PO SCH (11:15)
[2019-07-04] MEDS: FLUTICASONE NASAL SPRAY 50 MCG/SPRY 120 SPRAY/16 GM NASL SCH (11:15)
[2019-07-04] MEDS: POTASSIUM CHLORIDE 10 MEQ TABLET.ER PO SCH ×2 (11:15→21:20)
[2019-07-04] MEDS: POLYETHYLENE GLYCOL 3350 POWDER 17 GM/1 PACKET PO SCH (11:15)
[2019-07-04] MEDS: DOCUSATE SODIUM 100 MG CAPSULE PO SCH ×2 (11:15→18:05)
[2019-07-04] MEDS ORDERED: PROMETHAZINE HCL INJ 25 MG/1 ML VIAL IV PRN (11:53)
[2019-07-04] MEDS ORDERED: DIPHENHYDRAMINE HCL 50 MG/ML VIAL IV PRN (11:53)
[2019-07-04] MEDS ORDERED: FENTANYL CITRATE INJ/PF 100 MCG/2 ML AMPUL IV PRN ×3 (11:53)
--- NOTE | 2019-07-04 12:04 | RADIOLOGY REPORT (SQ) ---
EXAM DESCRIPTION: CHEST SINGLE VIEW COMPLETED DATE/TIME: 07/04/2019 11:38 am REASON FOR STUDY: S/P [facility] [employer] COMPARISON: 07/02/2019 EXAM PARAMETERS: NUMBER OF VIEWS: One view. TECHNIQUE: Single frontal radiographic view of the chest acquired. RADIATION DOSE: NA LIMITATIONS: None. FINDINGS: LUNGS AND PLEURA: Increasing opacification throughout the right hemithorax consistent with increasing consolidation and effusion. The left lung field remains clear. MEDIASTINUM AND HILAR STRUCTURES: No masses. Contour normal. HEART AND VASCULAR STRUCTURES: Unchanged. BONES: No acute findings. HARDWARE: None in the chest. OTHER: No other significant finding. IMPRESSION: Increasing opacification throughout the right hemithorax consistent with consolidation a long with pleural effusion. TECHNICAL DOCUMENTATION: JOB ID: [id number] [employer]- All Rights Reserved Reading location - IP/workstation name: [email or web address]
[2019-07-04 13:59] LABS: FLUID APPEARANCE CLOUDY; FLUID COLOR AMBER; FLUID SOURCE LUNG; FLUID TYPE BRONCHIAL WASH; FLUID VISCOSITY LIQUID
--- NOTE | 2019-07-04 13:59 | RADIOLOGY REPORT (SQ) ---
EXAM DESCRIPTION: CHEST SINGLE VIEW; NO CHG FLUORO COMPLETED DATE/TIME: 07/04/2019 1:45 pm REASON FOR STUDY: BRONCHOSCOPY COMPARISON: None. FLUOROSCOPY TIME: 1.4 minutes Spot images saved to PACS. TECHNIQUE: Intra-operative images acquired during surgical procedure to evaluate progress. NUMBER OF IMAGES: 8 LIMITATIONS: None. FINDINGS: Fluoroscopy was provided for intraoperative procedure. Please refer to the operative repo rt for further discussion. IMPRESSION: IMAGE(S) OBTAINED DURING PROCEDURE. COMMENT: Quality ID 145: Final reports for procedures using fluoroscopy that document radiation exp osure indices, or exposure time and number of fluorographic images (if radiation exposure indices are not available) Please consult full operative report of the attending physician for description of the procedure. TECHNICAL DOCUMENTATION: JOB ID: [id number] [employer]- All Rights Reserved Reading location - IP/workstation name: [email or web address]
--- NOTE | 2019-07-04 13:59 | RADIOLOGY REPORT (SQ) ---
EXAM DESCRIPTION: CHEST SINGLE VIEW; NO CHG FLUORO COMPLETED DATE/TIME: 07/04/2019 1:45 pm REASON FOR STUDY: BRONCHOSCOPY COMPARISON: None. FLUOROSCOPY TIME: 1.4 minutes Spot images saved to PACS. TECHNIQUE: Intra-operative images acquired during surgical procedure to evaluate progress. NUMBER OF IMAGES: 8 LIMITATIONS: None. FINDINGS: Fluoroscopy was provided for intraoperative procedure. Please refer to the operative repo rt for further discussion. IMPRESSION: IMAGE(S) OBTAINED DURING PROCEDURE. COMMENT: Quality ID 145: Final reports for procedures using fluoroscopy that document radiation exp osure indices, or exposure time and number of fluorographic images (if radiation exposure indices are not available) Please consult full operative report of the attending physician for description of the procedure. TECHNICAL DOCUMENTATION: JOB ID: [id number] [employer]- All Rights Reserved Reading location - IP/workstation name: [email or web address]
[2019-07-04] MEDS ORDERED: SUCCINYLCHOLINE CHLORIDE INJ 200 MG/10 ML VIAL ONE (14:43)
--- NOTE | 2019-07-04 15:21 | PDOC PROGRESS REPORT ---
Subjective Progress Note for:: 07/04/19 Subjective:: The patient had a bronchoscopy earlier. She reports not feeling any different. She is unaware of the results at this time. She does admit that her throat is a little sore. Reason For Visit: PNA,SEPTIC SHOCK Physical Exam Vital Signs: Temp Pulse Resp BP Pulse Ox 98.6 F 103 H 15 104/58 L 92 07/04/19 12:15 07/04/19 13:16 07/04/19 13:16 07/04/19 12:30 07/04/19 13:16 Intake & Output 07/03/19 07/04/19 07/05/19 06:59 06:59 06:59 Intake Total 954 192 4484 Output Total 700 1100 5 Balance 196 -500 995 Weight 66 kg 68.8 kg General appearance: PRESENT: no acute distress, cooperative, well-developed, well-nourished Head exam: PRESENT: atraumatic, normocephalic Ear exam: PRESENT: normal external ear exam. ABSENT: bleeding, drainage Respiratory exam: PRESENT: decreased breath sounds - Markedly decreased breath sounds on the left, unlabored. ABSENT: accessory muscle use, rhonchi, stridor, tachypnea, wheezes Cardiovascular exam: PRESENT: RRR, +S1, +S2 GI/Abdominal exam: PRESENT: normal bowel sounds, soft. ABSENT: distended, guarding, tenderness Rectal exam: PRESENT: deferred Neurological exam: PRESENT: alert, awake, oriented to person, oriented to place, oriented to time, oriented to situation, CN II-XII grossly intact Psychiatric exam: PRESENT: flat affect. ABSENT: agitated, anxious Focused psych exam: ABSENT: delusional, restlessness Skin exam: PRESENT: dry, normal color, warm. ABSENT: rash Results Laboratory Results: 07/03/19 04:40 07/03/19 04:40 07/03/19 07/04/19 22:00 10:28 Urine Color YELLOW Urine Appearance CLEAR Urine pH 8.0 Ur Specific [place] 1.012 Urine Protein 30 H Urine Glucose (UA) NEGATIVE Urine Ketones NEGATIVE Urine Blood NEGATIVE Urine RBC (Auto) 1 Fluid Type BRONCHIAL WASH Fluid Source LUNG Fluid Color NATE Fluid Appearance CLOUDY Fluid Viscosity LIQUID Fluid WBC 211 Fluid RBC 883 06/05/19 06/05/19 06/08/19 21:52 22:51 01:10 Creatine Kinase Cancelled CK-MB (CK-2) Troponin I Cancelled < 0.012 NT-Pro-B Natriuret Pep Cancelled [id number] H 06/08/19 06/08/19 06/14/19 01:10 02:00 04:40 Creatine Kinase < 20 L < 20 L CK-MB (CK-2) 1.21 Troponin I 0.032 NT-Pro-B Natriuret Pep [id number] H 06/14/19 04:40 Creatine Kinase CK-MB (CK-2) < 0.22 Troponin I < 0.012 NT-Pro-B Natriuret Pep Impressions: KUB X-Ray 06/06/19 00:00 IMPRESSION: Nasogastric tube in the gastric body Femoral line in place on the right Abdomen/Pelvis CT 06/10/19 00:00 IMPRESSION: 1. Extensive lung findings as above. When compared to 06/06/2019, right pleural effusion is slightly progressive and there is a new small left pleural effusion. Consolidation in the right lung has improved. Progressive interstitial infiltrate in the right upper lobe with new patchy interstitial infiltrate in the left upper lobe. 2. Other findings as above, stable. IMPRESSION: 1. Limited abdominal valuation given noncontrast technique, motion and external source artifacts as described. 2. Ascites. No overt bowel or urinary obstruction. 3. Generalized soft tissue edema/anasarca. Head CT 06/11/19 00:00 IMPRESSION: 1. No acute intracranial findings. Thoracentesis Ultrasound 06/11/19 00:00 IMPRESSION: SUCCESSFUL THORACENTESIS USING ULTRASOUND GUIDANCE. Head MRI 06/24/19 00:00 IMPRESSION: 1. Chronic brain changes, small vessel disease and mild atrophy. No recent CVA or acute intracranial abnormality allowing for bilateral mastoid disease. EVIDENCE OF ACUTE STROKE: NO. Chest CT 06/25/19 00:00 IMPRESSION: 1. Mild improvement aeration in the right upper lobe. There is persistent dense consolidation consistent with pneumonia. Lack of IV contrast limits evaluation for soft tissue masses. 2. Increasing right-sided pleural effusion. 3. New moderate size left pleural effusion. Fluoroscopy 07/04/19 00:00 IMPRESSION: IMAGE(S) OBTAINED DURING PROCEDURE. Chest X-Ray 07/04/19 11:00 IMPRESSION: Increasing opacification throughout the right hemithorax consistent with consolidation along with pleural effusion. Assessment and Plan - Diagnosis (1) Pneumonia due to Escherichia coli Qualifiers: Laterality: right Lung location: upper lobe of lung Qualified Code(s): J15.5 - Pneumonia due to Escherichia coli Is this a current diagnosis for this admission?: Yes Plan: Abx completed. Await Bronch results (2) Acute respiratory failure with hypoxia Is this a current diagnosis for this admission?: Yes Plan: remains on Oxygen at this time (3) Leukocytosis Qualifiers: Leukocytosis type: unspecified Qualified Code(s): D72.829 - Elevated white blood cell count, unspecified Is this a current diagnosis for this admission?: Yes Plan: White blood cell count is still elevated. Will review bronchoscopy results to look for any evidence of infection (4) Anemia Qualifiers: Anemia type: iron deficiency Iron deficiency anemia type: chronic blood loss Qualified Code(s): D50.0 - Iron deficiency anemia secondary to blood loss (chronic) Is this a current diagnosis for this admission?: Yes Plan: No consistent improvement. We will continue to monitor closely. Will transfuse if hemoglobin drops below 8.0. (5) Urinary retention Is this a current diagnosis for this admission?: Yes Plan: Currently post void bladder scans and routine bladder scans. Straight cath for greater than 200 mL. (6) Dehydration Is this a current diagnosis for this admission?: Yes Plan: Resolved. Continue to monitor intake and output. (7) Thrombocytopenia Is this a current diagnosis for this admission?: Yes Plan: Likely due to acute illness. Currently resolved. In fact currently exhibiting slightly increased platelet count. (8) Acute metabolic encephalopathy Is this a current diagnosis for this admission?: Yes Plan: Secondary to sepsis and infection. Resolved. (9) Constipation Is this a current diagnosis for this admission?: Yes Plan: Developed as an inpatient. Currently on a regimen of Colace, MiraLAX with as needed milk of magnesia. Increased mobility will help. Continue to monitor bowel movements. (10) Diarrhea Qualifiers: Diarrhea type: unspecified type Qualified Code(s): R19.7 - Diarrhea, unspecified Is this a current diagnosis for this admission?: Yes Plan: Present on admission. Subsequently resolved. (11) E coli bacteremia Is this a current diagnosis for this admission?: Yes Plan: Resolved. Received complete course of antibiotic therapy. (12) Hypo-osmolar hyponatremia Is this a current diagnosis for this admission?: Yes Plan: Present on admission. Likely due to overall critical illness. Resolved at this time. (13) Sepsis with acute organ dysfunction and septic shock Qualifiers: Sepsis type: Escherichia coli Severe sepsis acute organ dysfunction type: acute renal failure Acute renal failure type: with acute tubular necrosis Qualified Code(s): A41.51 - Sepsis due to Escherichia coli [E. coli]; R65.21 - Severe sepsis with septic shock; N17.0 - Acute kidney failure with tubular necrosis Is this a current diagnosis for this admission?: Yes Plan: Resolved (14) Debility Is this a current diagnosis for this admission?: Yes Plan: Will most likely need penitentiary. PT is working with the patient. Therapy reports that the patient is putting very good effort into her sessions. (15) Acute kidney injury (KATHLEEN) with acute tubular necrosis (ATN) Is this a current diagnosis for this admission?: Yes Plan: Secondary to infection and sepsis. Resolved. Continue to monitor renal function. - Plan Summary Summary: For bronchoscopy tomorrow. Alterations in treatment plan will be based on bronchoscopy results. - Time Time Spent with patient: 25-34 minutes Medications reviewed and adjusted accordingly: Yes
[2019-07-04] MEDS: CITALOPRAM HYDROBROMIDE 20 MG TABLET PO SCH (21:20)
[2019-07-04] MEDS: LATANOPROST 0.005% OPH SOLN 2.5 ML OU SCH (21:27)
[2019-07-05] MEDS: HEPARIN SOD (PORCINE) 5,000 UNIT/ML 1 ML VIAL SUBCUT SCH ×3 (05:39→21:51)
[2019-07-05] MEDS: IPRATROPIUM/ALBUTEROL 0.5-2.5 MG/3 ML AMPUL NEB SCH ×4 (08:28→20:46)
[2019-07-05] MEDS: ROPINIROLE HCL 0.25 MG TABLET PO SCH ×2 (09:13→17:22)
[2019-07-05] MEDS: HYDROCODONE/ACETAMINOPHEN 5-325 MG TABLET PO PRN (09:13)
[2019-07-05] MEDS: GABAPENTIN 300 MG CAPSULE PO SCH ×2 (09:13→21:49)
[2019-07-05] MEDS: FERROUS SULFATE 325 MG TABLET PO SCH ×2 (09:13→17:22)
[2019-07-05] MEDS: DOCUSATE SODIUM 100 MG CAPSULE PO SCH ×2 (09:13→17:22)
[2019-07-05] MEDS: MULTIVITAMIN TABLET PO SCH (09:13)
[2019-07-05] MEDS: DILTIAZEM HCL 30 MG TABLET PO SCH ×2 (09:13→17:22)
[2019-07-05] MEDS: FLUTICASONE NASAL SPRAY 50 MCG/SPRY 120 SPRAY/16 GM NASL SCH (09:14)
[2019-07-05] MEDS: POLYETHYLENE GLYCOL 3350 POWDER 17 GM/1 PACKET PO SCH (09:14)
[2019-07-05] MEDS: POTASSIUM CHLORIDE 10 MEQ TABLET.ER PO SCH ×2 (09:14→21:50)
--- NOTE | 2019-07-05 09:36 | Operative Report ---
Operative Report DATE OF SURGERY: 07/04/19 Operative Report: She was kept n.p.o. prior to procedure for 12 hours from taken to the preop area consents were reviewed and signed from anesthesia as well as from the rip saw operator myself. She was then taken to the bronchoscopy suite he was intubated with a #18 ET tube per anesthesia. The distal trachea was within normal limits there was no splaying of the sunday or left mainstem bronchus levels show some corrugations with no splaying of subcutaneous nodules the left upper lobe lingula left lower lobe were consistent with the above findings. Right mainstem bronchus was within normal limits as was the right middle lobe and right lower lobe. There was swelling submucosally and distortion of the right upper lobe was severely limited access as neither a biopsy forceps or a needle was able to penetrate poorly into the only patent orifice. Lavage was taken of the right upper lobe as well as some upper lobe needling biopsies and right upper lobe transbronchial biopsies. PREOPERATIVE DIAGNOSIS: RUL opacity POSTOPERATIVE DIAGNOSIS: rul submuccosal mass OPERATION: Fiberoptic bronchoscopy with right upper lobe bronchoalveolar lavage, transbronchial biopsies and Edward needle biopsy. SURGEON: JEFF EFRRARI ANESTHESIA: GA TISSUE REMOVED OR ALTERED: transbroncial biopsy RUL;Edward needle biopsy RUL COMPLICATIONS: none ESTIMATED BLOOD LOSS: 5cc
[2019-07-05] MEDS ORDERED: HYDROCODONE/ACETAMINOPHEN 5-325 MG TABLET PO PRN (16:30)
[2019-07-05] MEDS: HYDROCODONE/ACETAMINOPHEN 10-325 MG TABLET PO PRN (17:22)
--- NOTE | 2019-07-05 21:24 | PDOC PROGRESS REPORT ---
Subjective Progress Note for:: 07/05/19 Subjective:: The patient was notified that there is likely a mass in her lung causing compression of the airway not allowing mucus to drain. Other than her disappointment in the results of the test she has no other new complaints. Reason For Visit: PNA,SEPTIC SHOCK Physical Exam Vital Signs: Temp Pulse Resp BP Pulse Ox 98.6 F 101 H 16 104/58 L 93 07/04/19 12:15 07/05/19 15:43 07/05/19 15:43 07/04/19 12:30 07/05/19 15:43 Intake & Output 07/04/19 07/05/19 07/06/19 06:59 06:59 06:59 Intake Total 600 1000 Output Total 1100 905 550 Balance -500 95 -550 Weight 68.8 kg 68.8 kg General appearance: PRESENT: no acute distress, cooperative, well-developed Head exam: PRESENT: atraumatic, normocephalic Eye exam: PRESENT: conjunctiva pale. ABSENT: scleral icterus Ear exam: PRESENT: normal external ear exam. ABSENT: bleeding, drainage Mouth exam: PRESENT: moist, tongue midline Respiratory exam: PRESENT: decreased breath sounds - On the right, rhonchi - On the right, symmetrical, unlabored. ABSENT: accessory muscle use, rales, tachypnea, wheezes Cardiovascular exam: PRESENT: RRR, +S1, +S2 GI/Abdominal exam: PRESENT: normal bowel sounds, soft. ABSENT: distended, guarding, tenderness Rectal exam: PRESENT: deferred Gentrourinary exam: ABSENT: indwelling catheter Extremities exam: PRESENT: pedal edema Neurological exam: PRESENT: alert, awake, oriented to person, oriented to place, oriented to time, oriented to situation, CN II-XII grossly intact. ABSENT: altered Psychiatric exam: PRESENT: flat affect. ABSENT: agitated, anxious Focused psych exam: ABSENT: delusional, restlessness Skin exam: PRESENT: dry, pallor, warm. ABSENT: rash Results Laboratory Results: 07/03/19 04:40 07/03/19 04:40 07/04/19 10:28 Bronchial Washings AFB Smear Concentration - Final 07/04/19 10:28 Bronchial Washings Acid Fast Bacilli Smear - Final 06/05/19 06/05/19 06/08/19 21:52 22:51 01:10 Creatine Kinase Cancelled CK-MB (CK-2) Troponin I Cancelled < 0.012 NT-Pro-B Natriuret Pep Cancelled [id number] H 06/08/19 06/08/19 06/14/19 01:10 02:00 04:40 Creatine Kinase < 20 L < 20 L CK-MB (CK-2) 1.21 Troponin I 0.032 NT-Pro-B Natriuret Pep [id number] H 06/14/19 04:40 Creatine Kinase CK-MB (CK-2) < 0.22 Troponin I < 0.012 NT-Pro-B Natriuret Pep Impressions: KUB X-Ray 06/06/19 00:00 IMPRESSION: Nasogastric tube in the gastric body Femoral line in place on the right Abdomen/Pelvis CT 06/10/19 00:00 IMPRESSION: 1. Extensive lung findings as above. When compared to 06/06/2019, right pleural effusion is slightly progressive and there is a new small left pleural effusion. Consolidation in the right lung has improved. Progressive interstitial infiltrate in the right upper lobe with new patchy interstitial infiltrate in the left upper lobe. 2. Other findings as above, stable. IMPRESSION: 1. Limited abdominal valuation given noncontrast technique, motion and external source artifacts as described. 2. Ascites. No overt bowel or urinary obstruction. 3. Generalized soft tissue edema/anasarca. Head CT 06/11/19 00:00 IMPRESSION: 1. No acute intracranial findings. Thoracentesis Ultrasound 06/11/19 00:00 IMPRESSION: SUCCESSFUL THORACENTESIS USING ULTRASOUND GUIDANCE. Head MRI 06/24/19 00:00 IMPRESSION: 1. Chronic brain changes, small vessel disease and mild atrophy. No recent CVA or acute intracranial abnormality allowing for bilateral mastoid disease. EVIDENCE OF ACUTE STROKE: NO. Chest CT 06/25/19 00:00 IMPRESSION: 1. Mild improvement aeration in the right upper lobe. There is persistent dense consolidation consistent with pneumonia. Lack of IV contrast limits evaluation for soft tissue masses. 2. Increasing right-sided pleural effusion. 3. New moderate size left pleural effusion. Fluoroscopy 07/04/19 00:00 IMPRESSION: IMAGE(S) OBTAINED DURING PROCEDURE. Chest X-Ray 07/04/19 11:00 IMPRESSION: Increasing opacification throughout the right hemithorax consistent with consolidation along with pleural effusion. Assessment and Plan - Diagnosis (1) Lung mass Is this a current diagnosis for this admission?: Yes Plan: Because of the anatomy and difficulties accessing the area of concern I have called interventional radiology. They do not believe that they can directly n eedle the suspicious area. The patient does have a pleural effusion and we will insert a chest tube and submit the fluid for studies. This may reveal malignancy. If it does not then we will still need to pursue the possibility of biopsy. (2) Pneumonia due to Escherichia coli Qualifiers: Laterality: right Lung location: upper lobe of lung Qualified Code(s): J15.5 - Pneumonia due to Escherichia coli Is this a current diagnosis for this admission?: Yes Plan: Based on bronchoscopy results a portion of this is postobstructive. Will consider antibiotics if her white count does not resolve or if she begins to spike temperature (3) Acute respiratory failure with hypoxia Is this a current diagnosis for this admission?: Yes Plan: Still requires oxygen supplementation (4) Leukocytosis Qualifiers: Leukocytosis type: unspecified Qualified Code(s): D72.829 - Elevated white blood cell count, unspecified Is this a current diagnosis for this admission?: Yes Plan: White count still elevated. Worrisome for underlying infection. Will monitor closely. (5) Anemia Qualifiers: Anemia type: iron deficiency Iron deficiency anemia type: chronic blood loss Qualified Code(s): D50.0 - Iron deficiency anemia secondary to blood loss (chronic) Is this a current diagnosis for this admission?: Yes Plan: Hemoglobin is slightly lower today. Patient with marked iron deficiency. She may need intravenous iron therapy. (6) Urinary retention Is this a current diagnosis for this admission?: Yes Plan: Continue current treatment plan. Will review with nursing. We may need to try more bethanechol. (7) Dehydration Is this a current diagnosis for this admission?: Yes Plan: Resolved. Continue to monitor intake and output as well as renal function. (8) Thrombocytopenia Is this a current diagnosis for this admission?: Yes Plan: Resolved. Continue to monitor (9) Acute metabolic encephalopathy Is this a current diagnosis for this admission?: Yes Plan: Resolved (10) Constipation Is this a current diagnosis for this admission?: Yes Plan: Resolved. The patient is on MiraLAX and Colace daily. Additional stool softeners as needed (11) Diarrhea Qualifiers: Diarrhea type: unspecified type Qualified Code(s): R19.7 - Diarrhea, unspecified Is this a current diagnosis for this admission?: Yes Plan: Resolved (12) E coli bacteremia Is this a current diagnosis for this admission?: Yes Plan: Treated and resolved (13) Hypo-osmolar hyponatremia Is this a current diagnosis for this admission?: Yes Plan: Present on admission. Likely due to overall critical illness. Resolved at this time. Continue to monitor sodium (14) Sepsis with acute organ dysfunction and septic shock Qualifiers: Sepsis type: Escherichia coli Severe sepsis acute organ dysfunction type: acute renal failure Acute renal failure type: with acute tubular necrosis Qualified Code(s): A41.51 - Sepsis due to Escherichia coli [E. coli]; R65.21 - Severe sepsis with septic shock; N17.0 - Acute kidney failure with tubular necrosis Is this a current diagnosis for this admission?: Yes Plan: Resolved. No indications of recurrence at this time (15) Debility Is this a current diagnosis for this admission?: Yes Plan: Continue physical therapy. (16) Acute kidney injury (KATHLEEN) with acute tubular necrosis (ATN) Is this a current diagnosis for this admission?: Yes Plan: Secondary to infection and sepsis. Resolved. Continue to monitor renal function. - Plan Summary Summary: For bronchoscopy tomorrow. Alterations in treatment plan will be based on bronchoscopy results. - Time Time Spent with patient: 25-34 minutes Medications reviewed and adjusted accordingly: Yes
[2019-07-05] MEDS: CITALOPRAM HYDROBROMIDE 20 MG TABLET PO SCH (21:49)
[2019-07-05] MEDS: LATANOPROST 0.005% OPH SOLN 2.5 ML OU SCH (21:50)
[2019-07-05] MEDS ORDERED: GABAPENTIN 300 MG CAPSULE PO SCH (22:00)
[2019-07-06] MEDS: HEPARIN SOD (PORCINE) 5,000 UNIT/ML 1 ML VIAL SUBCUT SCH ×3 (05:25→21:39)
[2019-07-06 06:55] LABS: HEMATOCRIT 27.6 % (36.0-47.0); HEMOGLOBIN 9.1 g/dL (12.0-15.5); MEAN CORPUSCULAR HEMOGLOBIN 28.5 pg (27.0-33.4); MEAN CORPUSCULAR VOLUME 87 fl (80-97); PLATELET COUNT 530 10^3/uL (150-450); RED BLOOD COUNT 3.19 10^6/uL (3.72-5.28); RED CELL DISTRIBUTION WIDTH 16.9 % (11.5-14.0); WHITE BLOOD COUNT 14.3 10^3/uL (4.0-10.5)
[2019-07-06 07:04] LABS: INTERNATIONAL RATION (INR) 1.26; PROTHROMBIN TIME 15.9 SEC (11.4-15.4)
[2019-07-06 07:05] LABS: PARTIAL THROMBOPLASTIN TIME 39.2 SEC (23.5-35.8)
[2019-07-06 07:21] LABS: ALBUMIN 2.2 g/dL (3.5-5.0); ALKALINE PHOSPHATASE 69 U/L (38-126); ANION GAP 5 (5-19); ASPARTATE AMINO TRANSFERASE 14 U/L (14-36); BILIRUBIN,DIRECT 0.2 mg/dL (0.0-0.4); BILIRUBIN,TOTAL 0.2 mg/dL (0.2-1.3); BLOOD UREA NITROGEN 11 mg/dL (7-20); CARBON DIOXIDE 31 mmol/L (22-30); CHLORIDE 103 mmol/L (98-107); GLUCOSE 72 mg/dL (75-110); POTASSIUM 4.7 mmol/L (3.6-5.0); TOTAL PROTEIN 4.6 g/dL (6.3-8.2)
[2019-07-06] MEDS: IPRATROPIUM/ALBUTEROL 0.5-2.5 MG/3 ML AMPUL NEB SCH ×4 (08:44→20:56)
[2019-07-06] MEDS: MULTIVITAMIN TABLET PO SCH (09:43)
[2019-07-06] MEDS: POTASSIUM CHLORIDE 10 MEQ TABLET.ER PO SCH ×2 (09:43→21:38)
[2019-07-06] MEDS: ROPINIROLE HCL 0.25 MG TABLET PO SCH ×2 (09:43→17:21)
[2019-07-06] MEDS: FERROUS SULFATE 325 MG TABLET PO SCH ×2 (09:43→17:21)
[2019-07-06] MEDS: DOCUSATE SODIUM 100 MG CAPSULE PO SCH ×2 (09:43→17:21)
[2019-07-06] MEDS: POLYETHYLENE GLYCOL 3350 POWDER 17 GM/1 PACKET PO SCH (09:43)
[2019-07-06] MEDS: GABAPENTIN 300 MG CAPSULE PO SCH ×2 (09:44→21:38)
[2019-07-06] MEDS: DILTIAZEM HCL 30 MG TABLET PO SCH ×2 (09:44→18:58)
[2019-07-06] MEDS: HYDROCODONE/ACETAMINOPHEN 10-325 MG TABLET PO PRN ×3 (09:52→23:45)
--- NOTE | 2019-07-06 13:49 | RADIOLOGY REPORT (SQ) ---
EXAM DESCRIPTION: U/S THORACENTESIS W/CHEST TUBE COMPLETED DATE/TIME: 07/06/2019 1:05 pm REASON FOR STUDY: pleural effusion COMPARISON: None FLUORO TIME: Fluoroscopy was not used. Ultrasound images saved to PACS. TECHNIQUE: Image guided chest tube placement using sterile technique. RADIATION DOSE: None LIMITATIONS: None FINDINGS: After written consent was obtained and explaining the risks and benefits of the procedure, the patient was placed upright. A time out was then called for site verification. An entry site was then marked using ultrasound guidance. The posterior right wall was then prepped and draped in a blue rile fashion. The site was then anesthetized using 7 ml of 1% lidocaine solution. An 11 blade scalp el was used to make a small skin incision. A 18g -7cm needle was advanced into the chest wall. A.03 8 guidewire was passed through the needle. The tract was then dilated using a 12 Macanese dilator. A 12 fr drain was then placed over the wire. The catheter was then attached to the collection device. The entry site was covered with a sterile bandage. IMPRESSION: SUCCESSFUL PLACEMENT OF A RIGHT SIDED CHEST TUBE USING ULTRASOUND GUIDANCE. COMMENT: Patient medication list reviewed: Yes- Quality ID# [id number]:Eligible professional attests to do cumenting in the medical record they obtained, updated, or reviewed the patient's current medications . Quality ID 145: Final reports for procedures using fluoroscopy that document radiation exposure [place], or exposure time and number of fluorographic images (if radiation exposure indices are not avail able) TECHNICAL DOCUMENTATION: JOB ID: [id number] [employer]- All Rights Reserved Reading location - IP/workstation name: [email or web address] [email or web address]
[2019-07-06 14:05] LABS: FLUID APPEARANCE HAZY; FLUID COLOR YELLOW; FLUID SOURCE LUNG; FLUID TYPE PLEURAL
[2019-07-06 14:06] LABS: FLUID VISCOSITY LIQUID
--- NOTE | 2019-07-06 14:18 | PDOC PROGRESS REPORT ---
Subjective Progress Note for:: 07/06/19 Subjective:: The patient now has a chest tube right side posterior lung. It is draining straw-colored cloudy fluid. The fluid in the Pleur-evac is blood-tinged as well. The patient was pleasantly surprised that the procedure was not uncomfortable. She does report that her breathing is better. She is very nervous about the results especially the cytology. I told her that may not be ready for a day or 2. Reason For Visit: PNA,SEPTIC SHOCK Physical Exam Vital Signs: Temp Pulse Resp BP Pulse Ox 98.6 F 100 16 104/58 L 97 07/04/19 12:15 07/06/19 08:44 07/06/19 08:44 07/04/19 12:30 07/06/19 08:44 Intake & Output 07/05/19 07/06/19 07/07/19 06:59 06:59 06:59 Intake Total 1000 Output Total 905 1150 Balance 95 -1150 Weight 68.8 kg 67.4 kg General appearance: PRESENT: no acute distress, cooperative, well-developed Head exam: PRESENT: atraumatic, normocephalic Eye exam: PRESENT: conjunctiva pale. ABSENT: scleral icterus Ear exam: PRESENT: normal external ear exam. ABSENT: bleeding, drainage Mouth exam: PRESENT: moist, tongue midline Respiratory exam: PRESENT: clear to auscultation astrid - Clear to auscultation on the left side., decreased breath sounds - right, symmetrical, unlabored, other - Chest tube posterior rib cage mid scapular line connected to Pleur-evac.. ABSENT: accessory muscle use, chest wall tenderness, stridor, tachypnea, wheezes Cardiovascular exam: PRESENT: RRR, +S1, +S2, systolic murmur - 3/6 GI/Abdominal exam: PRESENT: distended - Slightly, normal bowel sounds, soft. ABSENT: guarding, tenderness Rectal exam: PRESENT: deferred Extremities exam: PRESENT: pedal edema, +2 edema Musculoskeletal exam: ABSENT: ambulatory Neurological exam: PRESENT: alert, awake, oriented to person, oriented to place, oriented to time, oriented to situation, CN II-XII grossly intact Psychiatric exam: PRESENT: appropriate affect - Affect reflects her concerns regarding test results on the pleural fluid. ABSENT: agitated, anxious Focused psych exam: ABSENT: delusional, restlessness Results Laboratory Results: 07/06/19 06:22 07/06/19 06:22 07/06/19 07/06/19 07/06/19 06:22 06:22 12:23 WBC 14.3 H RBC 3.19 L Hgb 9.1 L Hct 27.6 L MCV 87 MCH 28.5 MCHC 33.0 RDW 16.9 H Plt Count 530 H Sodium 138.6 Potassium 4.7 Chloride 103 Carbon Dioxide 31 H Anion Gap 5 BUN 11 Creatinine 0.66 Est GFR ( Amer) > 60 Glucose 72 L Calcium 9.0 Total Bilirubin 0.2 AST 14 Alkaline Phosphatase 69 Total Protein 4.6 L Albumin 2.2 L Fluid Type PLEURAL Fluid Source LUNG Fluid Color YELLOW Fluid Appearance HAZY Fluid Viscosity LIQUID Fluid WBC 106 Fluid RBC 1286 07/04/19 10:28 Bronchial Washings Gram Stain - Final 07/04/19 10:28 Bronchial Washings Bronchial Washings Culture - Final GREATLY REDUCED NORMAL KARSTEN 07/04/19 10:28 Bronchial Washings AFB Smear Concentration - Final 07/04/19 10:28 Bronchial Washings Acid Fast Bacilli Smear - Final 06/05/19 06/05/19 06/08/19 21:52 22:51 01:10 Creatine Kinase Cancelled CK-MB (CK-2) Troponin I Cancelled < 0.012 NT-Pro-B Natriuret Pep Cancelled [id number] H 06/08/19 06/08/19 06/14/19 01:10 02:00 04:40 Creatine Kinase < 20 L < 20 L CK-MB (CK-2) 1.21 Troponin I 0.032 NT-Pro-B Natriuret Pep [id number] H 06/14/19 04:40 Creatine Kinase CK-MB (CK-2) < 0.22 Troponin I < 0.012 NT-Pro-B Natriuret Pep Impressions: KUB X-Ray 06/06/19 00:00 IMPRESSION: Nasogastric tube in the gastric body Femoral line in place on the right Abdomen/Pelvis CT 06/10/19 00:00 IMPRESSION: 1. Extensive lung findings as above. When compared to 06/06/2019, right pleural effusion is slightly progressive and there is a new small left pleural effusion. Consolidation in the right lung has improved. Progressive interstitial infiltrate in the right upper lobe with new patchy interstitial infiltrate in the left upper lobe. 2. Other findings as above, stable. IMPRESSION: 1. Limited abdominal valuation given noncontrast technique, motion and external source artifacts as described. 2. Ascites. No overt bowel or urinary obstruction. 3. Generalized soft tissue edema/anasarca. Head CT 06/11/19 00:00 IMPRESSION: 1. No acute intracranial findings. Head MRI 06/24/19 00:00 IMPRESSION: 1. Chronic brain changes, small vessel disease and mild atrophy. No recent CVA or acute intracranial abnormality allowing for bilateral mastoid disease. EVIDENCE OF ACUTE STROKE: NO. Chest CT 06/25/19 00:00 IMPRESSION: 1. Mild improvement aeration in the right upper lobe. There is persistent dense consolidation consistent with pneumonia. Lack of IV contrast limits evaluation for soft tissue masses. 2. Increasing right-sided pleural effusion. 3. New moderate size left pleural effusion. Fluoroscopy 07/04/19 00:00 IMPRESSION: IMAGE(S) OBTAINED DURING PROCEDURE. Chest X-Ray 07/04/19 11:00 IMPRESSION: Increasing opacification throughout the right hemithorax consistent with consolidation along with pleural effusion. Thoracentesis Ultrasound 07/06/19 00:00 IMPRESSION: SUCCESSFUL PLACEMENT OF A RIGHT SIDED CHEST TUBE USING ULTRASOUND GUIDANCE. Assessment and Plan - Diagnosis (1) Lung mass Is this a current diagnosis for this admission?: Yes Plan: Interventional radiology was able to put up chest tube to provide drainage of the pleural effusion and some relief of her shortness of breath. Is also diagnostic and results are pending. It is cloudy with some blood noted. Radiology reviewed all the films and does not believe that the area of concern is accessible percutaneously for biopsy. Await the results of the pleurocentesis. Hopefully this will be a means to diagnose the suspicious lesion in the lungs. (2) Pneumonia due to Escherichia coli Qualifiers: Laterality: right Lung location: upper lobe of lung Qualified Code(s): J15.5 - Pneumonia due to Escherichia coli Is this a current diagnosis for this admission?: Yes Plan: Resolved. I do not believe there is a postobstructive pneumonia present currently. (3) Acute respiratory failure with hypoxia Is this a current diagnosis for this admission?: Yes Plan: Still requires oxygen supplementation (4) Leukocytosis Qualifiers: Leukocytosis type: unspecified Qualified Code(s): D72.829 - Elevated white blood cell count, unspecified Is this a current diagnosis for this admission?: Yes Plan: White blood cell count is still 14,000. I will continue to monitor but not with daily blood tests. (5) Anemia Qualifiers: Anemia type: iron deficiency Iron deficiency anemia type: chronic blood loss Qualified Code(s): D50.0 - Iron deficiency anemia secondary to blood loss (chronic) Is this a current diagnosis for this admission?: Yes Plan: The patient's serum iron was undetectable. She is on oral iron but I will give a single dose of intravenous iron as well. Hemoglobin fluctuates but is c onsistently close to 9.0. (6) Urinary retention Is this a current diagnosis for this admission?: Yes Plan: Continue current treatment plan. Will review with nursing. We may need to try more bethanechol. (7) Dehydration Is this a current diagnosis for this admission?: Yes Plan: Resolved. Continue to monitor intake and output as well as renal function. (8) Thrombocytopenia Is this a current diagnosis for this admission?: Yes Plan: Platelet count back to normal. We will continue to monitor. (9) Acute metabolic encephalopathy Is this a current diagnosis for this admission?: Yes Plan: Resolved at this time. (10) Constipation Qualifiers: Constipation type: unspecified constipation type Qualified Code(s): K59.00 - Constipation, unspecified Is this a current diagnosis for this admission?: Yes Plan: Resolved at this time. Continue bowel regimen to avoid recurrent constipation. (11) Diarrhea Qualifiers: Diarrhea type: unspecified type Qualified Code(s): R19.7 - Diarrhea, unspecified Is this a current diagnosis for this admission?: Yes Plan: Resolved at this time. (12) E coli bacteremia Is this a current diagnosis for this admission?: Yes Plan: Treated and resolved (13) Hypo-osmolar hyponatremia Is this a current diagnosis for this admission?: Yes Plan: Present on admission. Likely due to overall critical illness. Resolved at this time. Continue to monitor sodium (14) Sepsis with acute organ dysfunction and septic shock Qualifiers: Sepsis type: Escherichia coli Severe sepsis acute organ dysfunction type: acute renal failure Acute renal failure type: with acute tubular necrosis Qualified Code(s): A41.51 - Sepsis due to Escherichia coli [E. coli]; R65.21 - Severe sepsis with septic shock; N17.0 - Acute kidney failure with tubular necrosis Is this a current diagnosis for this admission?: Yes Plan: Resolved. No indications of recurrence at this time (15) Debility Is this a current diagnosis for this admission?: Yes Plan: Physical therapy is working with the patient. Currently she is only able to tolerate sitting at the edge of the bed and this is for fairly limited amount of time. She is participating in bed exercises. (16) Acute kidney injury (KATHLEEN) with acute tubular necrosis (ATN) Is this a current diagnosis for this admission?: Yes Plan: Currently resolved. We will continue to monitor renal function. - Plan Summary Summary: For bronchoscopy tomorrow. Alterations in treatment plan will be based on bronchoscopy results. - Time Time Spent with patient: 15-24 minutes Medications reviewed and adjusted accordingly: Yes
[2019-07-06] MEDS: FLUTICASONE NASAL SPRAY 50 MCG/SPRY 120 SPRAY/16 GM NASL SCH (15:28)
[2019-07-06] MEDS: CITALOPRAM HYDROBROMIDE 20 MG TABLET PO SCH (21:38)
[2019-07-06] MEDS: LATANOPROST 0.005% OPH SOLN 2.5 ML OU SCH (21:39)
[2019-07-07] MEDS: HYDROCODONE/ACETAMINOPHEN 10-325 MG TABLET PO PRN ×2 (06:40→21:46)
[2019-07-07] MEDS: HEPARIN SOD (PORCINE) 5,000 UNIT/ML 1 ML VIAL SUBCUT SCH ×3 (06:40→21:37)
[2019-07-07] MEDS ORDERED: IRON SUCROSE COMPLEX INJ/PF 100 MG/5 ML SDV IV SCH (08:00)
[2019-07-07] MEDS: IPRATROPIUM/ALBUTEROL 0.5-2.5 MG/3 ML AMPUL NEB SCH ×4 (08:25→21:23)
[2019-07-07] MEDS: POTASSIUM CHLORIDE 10 MEQ TABLET.ER PO SCH ×2 (10:09→21:45)
[2019-07-07] MEDS: MULTIVITAMIN TABLET PO SCH (10:09)
[2019-07-07] MEDS: GABAPENTIN 300 MG CAPSULE PO SCH ×2 (10:09→21:46)
[2019-07-07] MEDS: FERROUS SULFATE 325 MG TABLET PO SCH ×2 (10:10→17:39)
[2019-07-07] MEDS: DOCUSATE SODIUM 100 MG CAPSULE PO SCH ×2 (10:10→17:39)
[2019-07-07] MEDS: ROPINIROLE HCL 0.25 MG TABLET PO SCH ×2 (10:10→17:39)
[2019-07-07] MEDS: DILTIAZEM HCL 30 MG TABLET PO SCH ×2 (10:11→17:40)
[2019-07-07] MEDS: POLYETHYLENE GLYCOL 3350 POWDER 17 GM/1 PACKET PO SCH (10:11)
[2019-07-07] MEDS: FLUTICASONE NASAL SPRAY 50 MCG/SPRY 120 SPRAY/16 GM NASL SCH (10:13)
--- NOTE | 2019-07-07 10:52 | RADIOLOGY REPORT (SQ) ---
EXAM DESCRIPTION: CHEST SINGLE VIEW COMPLETED DATE/TIME: 07/07/2019 7:28 am REASON FOR STUDY: CHEST TUBE PLACEMENT COMPARISON: Chest films 06/25/2019, 07/02/2019, 07/04/2019 CT chest 06/25/2019 EXAM PARAMETERS: NUMBER OF VIEWS: One view. TECHNIQUE: Single frontal radiographic view of the chest acquired. RADIATION DOSE: NA LIMITATIONS: None. FINDINGS: LUNGS AND PLEURA: Persistent dense lobar pneumonia in the right upper lobe and right middl e lobe. Right lower pleural space pigtail catheter in place, decrease in right pleural effusion over the righ t lung base. No pneumothorax. Left lung well inflated and clear. No left pleural effusion or pneumothorax. MEDIASTINUM AND HILAR STRUCTURES: No masses. Contour normal. HEART AND VASCULAR STRUCTURES: Heart normal in size. Normal vasculature. BONES: No acute findings. HARDWARE: Right-sided pleural space pigtail catheter OTHER: No other significant finding. IMPRESSION: Right pleural space pigtail catheter, no significant residual right pleural effusion. N o pneumothorax. Persistent dense pneumonia in the right upper lobe and right middle lobe. TECHNICAL DOCUMENTATION: JOB ID: [id number] [employer]- All Rights Reserved Reading location - IP/workstation name: [email or web address]
--- NOTE | 2019-07-07 14:38 | PDOC PROGRESS REPORT ---
Subjective Progress Note for:: 07/07/19 Subjective:: The patient is finally drinking her Ensure. She reports that her breathing is noticeably improved from yesterday. She does not feel that pressure when she breathes. She is only part way through her lunch and reports that her appetite is only moderate. She still is clearly worried about fluid cytology else on the pleural fluid. Reason For Visit: PNA,SEPTIC SHOCK Physical Exam Vital Signs: Temp Pulse Resp BP Pulse Ox 98.9 F 75 18 119/67 92 07/07/19 00:00 07/07/19 11:38 07/07/19 11:38 07/07/19 00:00 07/07/19 11:38 Intake & Output 07/06/19 07/07/19 07/08/19 06:59 06:59 06:59 Intake Total 810 Output Total 1150 1170 Balance -1150 -360 Weight 67.4 kg 67.8 kg 67.8 kg General appearance: PRESENT: no acute distress, cooperative, well-developed Head exam: PRESENT: atraumatic, normocephalic Eye exam: PRESENT: conjunctiva pale. ABSENT: scleral icterus Ear exam: PRESENT: normal external ear exam. ABSENT: bleeding, drainage Mouth exam: PRESENT: moist, tongue midline Respiratory exam: PRESENT: rhonchi - Patient is actually moving more air in the right upper lobe., symmetrical, unlabored, other - Fluid draining from the chest tube in fact is beginning to be less cloudy. ABSENT: accessory muscle use, rales, stridor, tachypnea, wheezes GI/Abdominal exam: PRESENT: normal bowel sounds, soft. ABSENT: distended, tenderness Rectal exam: PRESENT: deferred Gentrourinary exam: PRESENT: indwelling catheter Extremities exam: PRESENT: +2 edema Musculoskeletal exam: ABSENT: ambulatory Neurological exam: PRESENT: alert, awake, oriented to person, oriented to place, oriented to time, oriented to situation, CN II-XII grossly intact Psychiatric exam: PRESENT: flat affect. ABSENT: agitated, anxious Focused psych exam: ABSENT: delusional, restlessness Results Laboratory Results: 07/06/19 06:22 07/06/19 06:22 07/04/19 10:28 Bronchial Washings Chlamydia pneumoniae (PCR) - Final 07/04/19 10:28 Bronchial Washings Gram Stain - Final 01/22/20 10:28 Bronchial Washings Bronchial Washings Culture - Final GREATLY REDUCED NORMAL KARSTEN 06/05/19 06/05/19 06/08/19 21:52 22:51 01:10 Creatine Kinase Cancelled CK-MB (CK-2) Troponin I Cancelled < 0.012 NT-Pro-B Natriuret Pep Cancelled [id number] H 06/08/19 06/08/19 06/14/19 01:10 02:00 04:40 Creatine Kinase < 20 L < 20 L CK-MB (CK-2) 1.21 Troponin I 0.032 NT-Pro-B Natriuret Pep [id number] H 06/14/19 04:40 Creatine Kinase CK-MB (CK-2) < 0.22 Troponin I < 0.012 NT-Pro-B Natriuret Pep Impressions: KUB X-Ray 06/06/19 00:00 IMPRESSION: Nasogastric tube in the gastric body Femoral line in place on the right Abdomen/Pelvis CT 06/10/19 00:00 IMPRESSION: 1. Extensive lung findings as above. When compared to 06/06/2019, right pleural effusion is slightly progressive and there is a new small left pleural effusion. Consolidation in the right lung has improved. Progressive interstitial infiltrate in the right upper lobe with new patchy interstitial infiltrate in the left upper lobe. 2. Other findings as above, stable. IMPRESSION: 1. Limited abdominal valuation given noncontrast technique, motion and external source artifacts as described. 2. Ascites. No overt bowel or urinary obstruction. 3. Generalized soft tissue edema/anasarca. Head CT 06/11/19 00:00 IMPRESSION: 1. No acute intracranial findings. Head MRI 06/24/19 00:00 IMPRESSION: 1. Chronic brain changes, small vessel disease and mild atrophy. No recent CVA or acute intracranial abnormality allowing for bilateral mastoid disease. EVIDENCE OF ACUTE STROKE: NO. Chest CT 06/25/19 00:00 IMPRESSION: 1. Mild improvement aeration in the right upper lobe. There is persistent dense consolidation consistent with pneumonia. Lack of IV contrast limits evaluation for soft tissue masses. 2. Increasing right-sided pleural effusion. 3. New moderate size left pleural effusion. Fluoroscopy 07/04/19 00:00 IMPRESSION: IMAGE(S) OBTAINED DURING PROCEDURE. Thoracentesis Ultrasound 07/06/19 00:00 IMPRESSION: SUCCESSFUL PLACEMENT OF A RIGHT SIDED CHEST TUBE USING ULTRASOUND GUIDANCE. Chest X-Ray 07/07/19 06:00 IMPRESSION: Right pleural space pigtail catheter, no significant residual right pleural effusion. No pneumothorax. Persistent dense pneumonia in the right upper lobe and right middle lobe. Assessment and Plan - Diagnosis (1) Lung mass Is this a current diagnosis for this admission?: Yes Plan: Cytology from pleural fluid is still pending. If the patient's white blood cell count does not improve she may very well have a postobstructive pneumonia due to the narrowed airway. Will reassess tomorrow. (2) Pneumonia due to Escherichia coli Qualifiers: Laterality: right Lung location: upper lobe of lung Qualified Code(s): J15.5 - Pneumonia due to Escherichia coli Is this a current diagnosis for this admission?: Yes Plan: Pleural fluid is no growth today. The patient reports that her breathing is better. The right upper lobe is still quite consolidated. I may consider resuming antibiotic therapy as the patient's white blood cell count is still 16,000. (3) Acute respiratory failure with hypoxia Is this a current diagnosis for this admission?: Yes Plan: Still requires oxygen supplementation. (4) Leukocytosis Qualifiers: Leukocytosis type: unspecified Qualified Code(s): D72.829 - Elevated white blood cell count, unspecified Is this a current diagnosis for this admission?: Yes Plan: White blood cell count still at 16,000. It has not increased dramatically from yesterday. I will recheck tomorrow and if it is not decreasing then consider resuming antibiotic therapy for a postobstructive pneumonia. (5) Anemia Qualifiers: Anemia type: iron deficiency Iron deficiency anemia type: chronic blood loss Qualified Code(s): D50.0 - Iron deficiency anemia secondary to blood loss (chronic) Is this a current diagnosis for this admission?: Yes Plan: Hemoglobin is stable. Currently on iron supplement. (6) Urinary retention Is this a current diagnosis for this admission?: Yes Plan: Rojo catheter is in place. The patient was having multiple straight caths per day. An indwelling Rojo catheter is more appropriate at this time. I may need to trial old school bladder training by clamping the Rojo catheter to see if the bladder response. (7) Dehydration Is this a current diagnosis for this admission?: Yes Plan: Resolved. Continue to monitor intake and output as well as renal function. (8) Thrombocytopenia Is this a current diagnosis for this admission?: Yes Plan: Resolved (9) Acute metabolic encephalopathy Is this a current diagnosis for this admission?: Yes Plan: Resolved at this time. (10) Constipation Qualifiers: Constipation type: unspecified constipation type Qualified Code(s): K59.00 - Constipation, unspecified Is this a current diagnosis for this admission?: Yes Plan: Resolved at this time. Continue bowel regimen to avoid recurrent constipation. (11) Diarrhea Qualifiers: Diarrhea type: unspecified type Qualified Code(s): R19.7 - Diarrhea, unspecified Is this a current diagnosis for this admission?: Yes Plan: Resolved at this time. (12) E coli bacteremia Is this a current diagnosis for this admission?: Yes Plan: Treated and resolved (13) Hypo-osmolar hyponatremia Is this a current diagnosis for this admission?: Yes Plan: Present on admission. Likely due to overall critical illness. Resolved at this time. Continue to monitor sodium (14) Sepsis with acute organ dysfunction and septic shock Qualifiers: Sepsis type: Escherichia coli Severe sepsis acute organ dysfunction type: acute renal failure Acute renal failure type: with acute tubular necrosis Qualified Code(s): A41.51 - Sepsis due to Escherichia coli [E. coli]; R65.21 - Severe sepsis with septic shock; N17.0 - Acute kidney failure with tubular necrosis Is this a current diagnosis for this admission?: Yes Plan: Resolved. No indications of recurrence at this time (15) Debility Is this a current diagnosis for this admission?: Yes Plan: Physical therapy is working with the patient. Currently she is only able to tolerate sitting at the edge of the bed and this is for fairly limited amount of time. She is participating in bed exercises. (16) Acute kidney injury (KATHLEEN) with acute tubular necrosis (ATN) Is this a current diagnosis for this admission?: Yes Plan: Currently resolved. We will continue to monitor renal function. - Plan Summary Summary: For bronchoscopy tomorrow. Alterations in treatment plan will be based on bronchoscopy results. - Time Time Spent with patient: 15-24 minutes Medications reviewed and adjusted accordingly: Yes
[2019-07-07] MEDS: LATANOPROST 0.005% OPH SOLN 2.5 ML OU SCH (21:46)
[2019-07-07] MEDS: CITALOPRAM HYDROBROMIDE 20 MG TABLET PO SCH (21:46)
[2019-07-08] MEDS: HEPARIN SOD (PORCINE) 5,000 UNIT/ML 1 ML VIAL SUBCUT SCH ×3 (05:09→21:41)
--- NOTE | 2019-07-08 08:10 | RADIOLOGY REPORT (SQ) ---
EXAM DESCRIPTION: CHEST SINGLE VIEW COMPLETED DATE/TIME: 07/08/2019 7:44 am REASON FOR STUDY: CHEST TUBE PLACEMENT COMPARISON: CT chest 06/25/2019 Chest films 06/30/2019, 07/04/2019, 07/07/2019 EXAM PARAMETERS: NUMBER OF VIEWS: One view. TECHNIQUE: Single frontal radiographic view of the chest acquired. RADIATION DOSE: NA LIMITATIONS: None. FINDINGS: LUNGS AND PLEURA: Pigtail catheter in the right posterior pleural space. No pneumothorax or significant residual pleural effusion. Persistent dense pneumonia in the right upper lobe and right middle lobe. Patchy airspace disease ri ght lower lobe. Left hemithorax unremarkable MEDIASTINUM AND HILAR STRUCTURES: No masses. Contour normal. HEART AND VASCULAR STRUCTURES: Heart normal in size. Normal vasculature. BONES: No acute findings. HARDWARE: Unchanged right-sided posterior pleural space pigtail catheter OTHER: No other significant finding. IMPRESSION: Right posterior pleural space pigtail catheter without residual pleural effusion or pneu mothorax Persistent dense consolidation right upper lobe right middle lobe, patchy consolidation right lower l obe. TECHNICAL DOCUMENTATION: JOB ID: [id number] [employer]- All Rights Reserved Reading location - IP/workstation name: [email or web address]
[2019-07-08] MEDS: IPRATROPIUM/ALBUTEROL 0.5-2.5 MG/3 ML AMPUL NEB SCH ×4 (09:40→20:01)
[2019-07-08] MEDS: POTASSIUM CHLORIDE 10 MEQ TABLET.ER PO SCH ×2 (09:50→21:41)
[2019-07-08] MEDS: ROPINIROLE HCL 0.25 MG TABLET PO SCH ×2 (09:50→17:08)
[2019-07-08] MEDS: DILTIAZEM HCL 30 MG TABLET PO SCH ×2 (09:50→17:09)
[2019-07-08] MEDS: GABAPENTIN 300 MG CAPSULE PO SCH ×2 (09:50→21:41)
[2019-07-08] MEDS: FERROUS SULFATE 325 MG TABLET PO SCH ×2 (09:50→17:08)
[2019-07-08] MEDS: MULTIVITAMIN TABLET PO SCH (09:50)
[2019-07-08] MEDS: DOCUSATE SODIUM 100 MG CAPSULE PO SCH ×2 (09:51→17:08)
[2019-07-08] MEDS: POLYETHYLENE GLYCOL 3350 POWDER 17 GM/1 PACKET PO SCH (09:51)
[2019-07-08] MEDS: FLUTICASONE NASAL SPRAY 50 MCG/SPRY 120 SPRAY/16 GM NASL SCH (09:51)
[2019-07-08] MEDS: HYDROCODONE/ACETAMINOPHEN 10-325 MG TABLET PO PRN ×2 (09:53→16:19)
--- NOTE | 2019-07-08 13:28 | PDOC PROGRESS REPORT ---
Subjective Progress Note for:: 07/08/19 Subjective:: Patient is complaining of back pain near the site of the chest tube drain. She was laying on the stopcock valve. She may need pillows to cushion her. She also is laying carpet. She has been hesitant to get out of bed and I think that would help as well. Her breathing is comfortable but she still remains on nasal cannula oxygen at 5 L. Chlamydia pneumoniae isolated from bronchial washings. Reason For Visit: PNA,SEPTIC SHOCK Physical Exam Vital Signs: Temp Pulse Resp BP Pulse Ox 98.7 F 100 18 116/67 90 L 07/08/19 11:58 07/08/19 12:44 07/08/19 12:44 07/08/19 11:58 07/08/19 12:44 Intake & Output 07/07/19 07/08/19 07/09/19 06:59 06:59 06:59 Intake Total 810 Output Total 1170 800 Balance -360 -800 Weight 67.8 kg 67.8 kg General appearance: PRESENT: cooperative, mild distress, well-developed Head exam: PRESENT: atraumatic, normocephalic Eye exam: PRESENT: conjunctiva pale. ABSENT: scleral icterus Ear exam: PRESENT: normal external ear exam. ABSENT: bleeding, drainage Respiratory exam: PRESENT: rhonchi - Left upper lobe, symmetrical, unlabored, other - Some discomfort with deep breath due to the back pain on the right.. ABSENT: prolonged expiratory phas, rales, tachypnea, wheezes Cardiovascular exam: PRESENT: RRR, +S1, +S2 GI/Abdominal exam: PRESENT: normal bowel sounds, soft. ABSENT: distended, guarding, tenderness Rectal exam: PRESENT: deferred Gentrourinary exam: PRESENT: indwelling catheter Extremities exam: PRESENT: pedal edema - Improving Musculoskeletal exam: PRESENT: normal inspection. ABSENT: ambulatory - Extremel y weak and does not ambulate yet, deformity Neurological exam: PRESENT: alert, awake, oriented to person, oriented to place, oriented to time, oriented to situation, CN II-XII grossly intact Psychiatric exam: PRESENT: flat affect. ABSENT: agitated, anxious Focused psych exam: ABSENT: delusional, restlessness Skin exam: PRESENT: dry, pallor, warm. ABSENT: rash Results Laboratory Results: 07/06/19 06:22 07/06/19 06:22 07/06/19 07/06/19 07/06/19 12:23 12:23 12:23 Fluid Glucose 75 Fluid Total Protein 2.0 Fluid LDH 90 07/04/19 10:28 Bronchial Washings Fungal Smear - Final 07/04/19 10:28 Bronchial Washings Fungal Smear - Final 06/05/19 06/05/19 06/08/19 21:52 22:51 01:10 Creatine Kinase Cancelled CK-MB (CK-2) Troponin I Cancelled < 0.012 NT-Pro-B Natriuret Pep Cancelled [id number] H 06/08/19 06/08/19 06/14/19 01:10 02:00 04:40 Creatine Kinase < 20 L < 20 L CK-MB (CK-2) 1.21 Troponin I 0.032 NT-Pro-B Natriuret Pep [id number] H 06/14/19 04:40 Creatine Kinase CK-MB (CK-2) < 0.22 Troponin I < 0.012 NT-Pro-B Natriuret Pep Impressions: KUB X-Ray 06/06/19 00:00 IMPRESSION: Nasogastric tube in the gastric body Femoral line in place on the right Abdomen/Pelvis CT 06/10/19 00:00 IMPRESSION: 1. Extensive lung findings as above. When compared to 06/06/2019, right pleural effusion is slightly progressive and there is a new small left pleural effusion. Consolidation in the right lung has improved. Progressive interstitial infiltrate in the right upper lobe with new patchy interstitial infiltrate in the left upper lobe. 2. Other findings as above, stable. IMPRESSION: 1. Limited abdominal valuation given noncontrast technique, motion and external source artifacts as described. 2. Ascites. No overt bowel or urinary obstruction. 3. Generalized soft tissue edema/anasarca. Head CT 06/11/19 00:00 IMPRESSION: 1. No acute intracranial findings. Head MRI 06/24/19 00:00 IMPRESSION: 1. Chronic brain changes, small vessel disease and mild atrophy. No recent CVA or acute intracranial abnormality allowing for bilateral mastoid disease. EVIDENCE OF ACUTE STROKE: NO. Chest CT 06/25/19 00:00 IMPRESSION: 1. Mild improvement aeration in the right upper lobe. There is persistent dense consolidation consistent with pneumonia. Lack of IV contrast limits evaluation for soft tissue masses. 2. Increasing right-sided pleural effusion. 3. New moderate size left pleural effusion. Fluoroscopy 07/04/19 00:00 IMPRESSION: IMAGE(S) OBTAINED DURING PROCEDURE. Thoracentesis Ultrasound 07/06/19 00:00 IMPRESSION: SUCCESSFUL PLACEMENT OF A RIGHT SIDED CHEST TUBE USING ULTRASOUND GUIDANCE. Chest X-Ray 07/08/19 06:00 IMPRESSION: Right posterior pleural space pigtail catheter without residual pleural effusion or pneumothorax Persistent dense consolidation right upper lobe right middle lobe, patchy consolidation right lower lobe. Assessment and Plan - Diagnosis (1) Lung mass Is this a current diagnosis for this admission?: Yes Plan: There is a suspected lung mass due to the extreme narrowing of 1 of the right upper lobe bronchi. A large pleural effusion was tapped. Cytology is still pending. After the pleural effusion was removed radiology still was unsure if there was a mass. We will likely repeat a CT scan. (2) Pneumonia due to Escherichia coli Qualifiers: Laterality: right Lung location: upper lobe of lung Qualified Code(s): J15.5 - Pneumonia due to Escherichia coli Is this a current diagnosis for this admission?: Yes Plan: This was the initial pneumonia diagnosed. It was treated and resolved. Bronchial washings appear to be positive for chlamydia pneumonia. I will start azithromycin. (3) Acute respiratory failure with hypoxia Is this a current diagnosis for this admission?: Yes Plan: Secondary to the right upper lobe pneumonia and pleural effusion. Pleural effusion has been tapped. Patient still requires oxygen supplementation. Her right upper lobe is densely consolidated and so she has lost that portion temporarily. (4) Leukocytosis Qualifiers: Leukocytosis type: unspecified Qualified Code(s): D72.829 - Elevated white blood cell count, unspecified Is this a current diagnosis for this admission?: Yes Plan: Her white count is elevated but stable. I will recheck after several days on the azithromycin. (5) Anemia Qualifiers: Anemia type: iron deficiency Iron deficiency anemia type: chronic blood loss Qualified Code(s): D50.0 - Iron deficiency anemia secondary to blood loss (chronic) Is this a current diagnosis for this admission?: Yes Plan: Chronic and stable. Continue to monitor. No evidence of bleeding. (6) Urinary retention Is this a current diagnosis for this admission?: Yes Plan: Rojo catheter in place (7) Dehydration Is this a current diagnosis for this admission?: Yes Plan: The patient has had a negative fluid balance over the last several days. There is no evidence of dehydration at this time. We will continue to monitor. (8) Thrombocytopenia Is this a current diagnosis for this admission?: Yes Plan: Resolved. Continue to monitor. (9) Acute metabolic encephalopathy Is this a current diagnosis for this admission?: Yes Plan: Resolved. Continue to monitor. (10) Constipation Qualifiers: Constipation type: unspecified constipation type Qualified Code(s): K59.00 - Constipation, unspecified Is this a current diagnosis for this admission?: Yes Plan: Resolved. Continue stool softeners (11) Diarrhea Qualifiers: Diarrhea type: unspecified type Qualified Code(s): R19.7 - Diarrhea, unspecified Is this a current diagnosis for this admission?: Yes Plan: Resolved (12) E coli bacteremia Is this a current diagnosis for this admission?: Yes Plan: Treated and resolved (13) Hypo-osmolar hyponatremia Is this a current diagnosis for this admission?: Yes Plan: Serum sodium normal. Continue to monitor. (14) Sepsis with acute organ dysfunction and septic shock Qualifiers: Sepsis type: Escherichia coli Severe sepsis acute organ dysfunction type: acute renal failure Acute renal failure type: with acute tubular necrosis Qualified Code(s): A41.51 - Sepsis due to Escherichia coli [E. coli]; R65.21 - S evere sepsis with septic shock; N17.0 - Acute kidney failure with tubular necrosis Is this a current diagnosis for this admission?: Yes Plan: Treated and resolved (15) Debility Is this a current diagnosis for this admission?: Yes Plan: PT has been ordered. The patient is reticent to get out of bed. I told her that this will help some of her stiffness and discomfort. (16) Acute kidney injury (KATHLEEN) with acute tubular necrosis (ATN) Is this a current diagnosis for this admission?: Yes Plan: Resolved. Continue to monitor. (17) Pneumonia due to Chlamydia pneumoniae Is this a current diagnosis for this admission?: Yes Plan: Azithromycin started. - Plan Summary Summary: For bronchoscopy tomorrow. Alterations in treatment plan will be based on bronchoscopy results. - Time Time Spent with patient: 15-24 minutes Medications reviewed and adjusted accordingly: Yes Anticipated discharge: Home
[2019-07-08] MEDS: AZITHROMYCIN 500 MG in DEXTROSE 5%-WATER 250 ML IV SCH (15:11)
[2019-07-08] MEDS: CITALOPRAM HYDROBROMIDE 20 MG TABLET PO SCH (21:41)
[2019-07-08] MEDS: LATANOPROST 0.005% OPH SOLN 2.5 ML OU SCH (21:42)
[2019-07-08] MEDS ORDERED: AZITHROMYCIN 500 MG in DEXTROSE 5%-WATER 250 ML IV SCH (22:00)
[2019-07-09] MEDS: HEPARIN SOD (PORCINE) 5,000 UNIT/ML 1 ML VIAL SUBCUT SCH ×3 (05:02→23:20)
[2019-07-09] MEDS: HYDROCODONE/ACETAMINOPHEN 10-325 MG TABLET PO PRN ×2 (07:54→17:27)
--- NOTE | 2019-07-09 08:31 | RADIOLOGY REPORT (SQ) ---
EXAM DESCRIPTION: CHEST SINGLE VIEW COMPLETED DATE/TIME: 07/09/2019 8:18 am REASON FOR STUDY: CHEST TUBE PLACEMENT COMPARISON: 07/08/2019 NUMBER OF VIEWS: One view. TECHNIQUE: Single frontal radiographic image of the chest acquired. LIMITATIONS: None. FINDINGS: LUNGS AND PLEURA: Slight increase in airspace disease in the right base. Dense consolidat ion the right upper lobe is unchanged. Right-sided chest tube remains in place. Left lung field is unchanged. MEDIASTINUM AND HILAR STRUCTURES: Stable heart size and mediastinal structures. HEART AND VASCULAR STRUCTURES: Stable appearance. BONES: No acute findings. HARDWARE: None in the chest. OTHER: No other significant finding. IMPRESSION: Slight increase in right lower lobe airspace disease since prior study. No other interv al change. Right-sided chest tube remains in place. TECHNICAL DOCUMENTATION: JOB ID: [id number] [employer]- All Rights Reserved Reading location - IP/workstation name: [email or web address]
[2019-07-09] MEDS: IPRATROPIUM/ALBUTEROL 0.5-2.5 MG/3 ML AMPUL NEB SCH ×4 (08:39→19:54)
[2019-07-09] MEDS: FERROUS SULFATE 325 MG TABLET PO SCH ×2 (09:15→17:27)
[2019-07-09] MEDS: ROPINIROLE HCL 0.25 MG TABLET PO SCH ×2 (09:15→17:28)
[2019-07-09] MEDS: POTASSIUM CHLORIDE 10 MEQ TABLET.ER PO SCH ×2 (09:15→22:00)
[2019-07-09] MEDS: DILTIAZEM HCL 30 MG TABLET PO SCH ×2 (09:15→17:27)
[2019-07-09] MEDS: FLUTICASONE NASAL SPRAY 50 MCG/SPRY 120 SPRAY/16 GM NASL SCH (09:15)
[2019-07-09] MEDS: MULTIVITAMIN TABLET PO SCH (09:15)
[2019-07-09] MEDS: GABAPENTIN 300 MG CAPSULE PO SCH ×2 (09:15→23:19)
[2019-07-09] MEDS: DOCUSATE SODIUM 100 MG CAPSULE PO SCH ×2 (09:18→17:27)
[2019-07-09] MEDS: POLYETHYLENE GLYCOL 3350 POWDER 17 GM/1 PACKET PO SCH (09:22)
--- NOTE | 2019-07-09 13:43 | PDOC PROGRESS REPORT ---
Subjective Progress Note for:: 07/09/19 Subjective:: The patient is resting comfortably. She is frustrated with the still pending cytology results. Her breathing is reasonably comfortable. She still has significant discomfort along the right costophrenic margin. Reason For Visit: PNA,SEPTIC SHOCK Physical Exam Vital Signs: Temp Pulse Resp BP Pulse Ox 98.5 F 100 16 130/79 H 96 07/09/19 11:14 07/09/19 12:44 07/09/19 12:44 07/09/19 11:14 07/09/19 12:44 Intake & Output 07/08/19 07/09/19 07/10/19 06:59 06:59 06:59 Intake Total 630 Output Total 800 1800 Balance -800 -1170 Weight 67.8 kg 67.8 kg General appearance: PRESENT: cooperative, mild distress, well-developed Head exam: PRESENT: atraumatic, normocephalic Eye exam: PRESENT: conjunctiva pale. ABSENT: scleral icterus Ear exam: PRESENT: normal external ear exam. ABSENT: bleeding, drainage Mouth exam: PRESENT: dry mucosa, tongue midline Respiratory exam: PRESENT: rales - Faint rales at right base., symmetrical, unlabored. ABSENT: accessory muscle use, prolonged expiratory phas, rhonchi - Coarse breath sounds right upper lobe., tachypnea, wheezes Cardiovascular exam: PRESENT: RRR, +S1, +S2, systolic murmur GI/Abdominal exam: PRESENT: normal bowel sounds, soft. ABSENT: distended, tenderness Rectal exam: PRESENT: deferred Gentrourinary exam: PRESENT: indwelling catheter Extremities exam: PRESENT: pedal edema Musculoskeletal exam: ABSENT: ambulatory - Patient has been reticent to get out of bed. The staff needs to be more encouraging. Neurological exam: PRESENT: alert, awake, oriented to person, oriented to place, oriented to time, oriented to situation, CN II-XII grossly intact Psychiatric exam: PRESENT: flat affect. ABSENT: agitated, anxious Focused psych exam: ABSENT: delusional, restlessness Results Laboratory Results: 07/06/19 06:22 07/06/19 06:22 06/05/19 06/05/19 06/08/19 21:52 22:51 01:10 Creatine Kinase Cancelled CK-MB (CK-2) Troponin I Cancelled < 0.012 NT-Pro-B Natriuret Pep Cancelled [id number] H 06/08/19 06/08/19 06/14/19 01:10 02:00 04:40 Creatine Kinase < 20 L < 20 L CK-MB (CK-2) 1.21 Troponin I 0.032 NT-Pro-B Natriuret Pep [id number] H 06/14/19 04:40 Creatine Kinase CK-MB (CK-2) < 0.22 Troponin I < 0.012 NT-Pro-B Natriuret Pep Impressions: KUB X-Ray 06/06/19 00:00 IMPRESSION: Nasogastric tube in the gastric body Femoral line in place on the right Abdomen/Pelvis CT 06/10/19 00:00 IMPRESSION: 1. Extensive lung findings as above. When compared to 06/06/2019, right pleural effusion is slightly progressive and there is a new small left pleural effusion. Consolidation in the right lung has improved. Progressive interstitial i nfiltrate in the right upper lobe with new patchy interstitial infiltrate in the left upper lobe. 2. Other findings as above, stable. IMPRESSION: 1. Limited abdominal valuation given noncontrast technique, motion and external source artifacts as described. 2. Ascites. No overt bowel or urinary obstruction. 3. Generalized soft tissue edema/anasarca. Head CT 06/11/19 00:00 IMPRESSION: 1. No acute intracranial findings. Head MRI 06/24/19 00:00 IMPRESSION: 1. Chronic brain changes, small vessel disease and mild atrophy. No recent CVA or acute intracranial abnormality allowing for bilateral mastoid disease. EVIDENCE OF ACUTE STROKE: NO. Chest CT 06/25/19 00:00 IMPRESSION: 1. Mild improvement aeration in the right upper lobe. There is persistent dense consolidation consistent with pneumonia. Lack of IV contrast limits evaluation for soft tissue masses. 2. Increasing right-sided pleural effusion. 3. New moderate size left pleural effusion. Fluoroscopy 07/04/19 00:00 IMPRESSION: IMAGE(S) OBTAINED DURING PROCEDURE. Thoracentesis Ultrasound 07/06/19 00:00 IMPRESSION: SUCCESSFUL PLACEMENT OF A RIGHT SIDED CHEST TUBE USING ULTRASOUND GUIDANCE. Chest X-Ray 07/09/19 06:00 IMPRESSION: Slight increase in right lower lobe airspace disease since prior study. No other interval change. Right-sided chest tube remains in place. Assessment and Plan - Diagnosis (1) Pleural effusion associated with pulmonary infection Is this a current diagnosis for this admission?: Yes Plan: The patient has a chest tube in. She had a large pleural effusion. Cytology is still pending. She is complaining of right-sided back pain. It may be the chest tube site. There is no erythema at the site. Continue analgesia. I called the pathology lab. Studies are still pending. The pathologist will call me with the results. (2) Right-sided back pain Qualifiers: Back pain location: thoracic back pain Chronicity: acute Qualified Code(s): M54.6 - Pain in thoracic spine Is this a current diagnosis for this admission?: Yes Plan: The patient has reported this discomfort since the chest tube is been placed. I explained to her that it could be the chest tube or the chest tube site. I also encouraged her to get out of bed since this will alleviate direct pressure on the site. Continue analgesia. (3) Lung mass Is this a current diagnosis for this admission?: Yes Plan: Suspected mass due to narrowing of 1 of the bronchi. Bronchoscopy was attempted. Radiology is not sure that this is a mass. Her pleural effusion was drained and if the cytology is positive for malignancy then a PET scan might identify any lesions. (4) Pneumonia due to Escherichia coli Qualifiers: Laterality: right Lung location: upper lobe of lung Qualified Code(s): J15.5 - Pneumonia due to Escherichia coli Is this a current diagnosis for this admission?: Yes Plan: Treated and resolved (5) Acute respiratory failure with hypoxia Is this a current diagnosis for this admission?: Yes Plan: Secondary to pneumonia. Still on oxygen supplementation. (6) Leukocytosis Qualifiers: Leukocytosis type: unspecified Qualified Code(s): D72.829 - Elevated white blood cell count, unspecified Is this a current diagnosis for this admission?: Yes Plan: White count is unchanged. We will continue to monitor. She was started on azithromycin for presumed chlamydia pneumoniae. The results were misinterpreted by me and the results in fact were negative. I will continue cefepime for right now treating for possible postobstructive pneumonia in the right upper lobe. (7) Anemia Qualifiers: Anemia type: iron deficiency Iron deficiency anemia type: chronic blood loss Qualified Code(s): D50.0 - Iron deficiency anemia secondary to blood loss (chronic) Is this a current diagnosis for this admission?: Yes Plan: Stable. Continue to monitor. (8) Urinary retention Is this a current diagnosis for this admission?: Yes Plan: Rojo cath in place. (9) Dehydration Is this a current diagnosis for this admission?: Yes Plan: Resolved (10) Thrombocytopenia Is this a current diagnosis for this admission?: Yes Plan: Resolved (11) Acute metabolic encephalopathy Is this a current diagnosis for this admission?: Yes Plan: Resolved (12) Constipation Qualifiers: Constipation type: unspecified constipation type Qualified Code(s): K59.00 - Constipation, unspecified Is this a current diagnosis for this admission?: Yes Plan: Resolved. Continue stool softeners. (13) Diarrhea Qualifiers: Diarrhea type: unspecified type Qualified Code(s): R19.7 - Diarrhea, unspecified Is this a current diagnosis for this admission?: Yes Plan: Resolved (14) E coli bacteremia Is this a current diagnosis for this admission?: Yes Plan: Treated and resolved (15) Hypo-osmolar hyponatremia Is this a current diagnosis for this admission?: Yes Plan: Serum sodium is currently normal. Continue to monitor. (16) Sepsis with acute organ dysfunction and septic shock Qualifiers: Sepsis type: Escherichia coli Severe sepsis acute organ dysfunction type: acute renal failure Acute renal failure type: with acute tubular necrosis Qualified Code(s): A41.51 - Sepsis due to Escherichia coli [E. coli]; R65.21 - Severe sepsis with septic shock; N17.0 - Acute kidney failure with tubular necrosis Is this a current diagnosis for this admission?: Yes Plan: Treated and resolved (17) Debility Is this a current diagnosis for this admission?: Yes Plan: We will need to strongly encourage increased activity (18) Acute kidney injury (KATHLEEN) with acute tubular necrosis (ATN) Is this a current diagnosis for this admission?: Yes Plan: Resolved (19) Pneumonia due to Chlamydia pneumoniae Is this a current diagnosis for this admission?: No Plan: Unfortunately I incorrectly interpreted the PCR results. The patient does not have chlamydia pneumoniae pneumonia. Because of the persistent elevated white blood cell count and still consolidated right upper lobe I will continue the cefepime at this time. - Plan Summary Summary: For bronchoscopy tomorrow. Alterations in treatment plan will be based on bronchoscopy results. - Time Time Spent with patient: 15-24 minutes Medications reviewed and adjusted accordingly: Yes
[2019-07-09] MEDS: AZITHROMYCIN 500 MG in DEXTROSE 5%-WATER 250 ML IV SCH (14:05)
[2019-07-09 14:31] LABS: HEMATOCRIT 28.2 % (36.0-47.0); HEMOGLOBIN 9.3 g/dL (12.0-15.5); MEAN CORPUSCULAR HEMOGLOBIN 28.3 pg (27.0-33.4); MEAN CORPUSCULAR HGB CONC 32.9 g/dL (32.0-36.0); MEAN CORPUSCULAR VOLUME 86 fl (80-97); PLATELET COUNT 577 10^3/uL (150-450); RED BLOOD COUNT 3.29 10^6/uL (3.72-5.28); RED CELL DISTRIBUTION WIDTH 16.7 % (11.5-14.0)
[2019-07-09 14:51] LABS: ANION GAP 6 (5-19); BLOOD UREA NITROGEN 12 mg/dL (7-20); CALCIUM 9.3 mg/dL (8.4-10.2); CARBON DIOXIDE 29 mmol/L (22-30); CHLORIDE 100 mmol/L (98-107); GLUCOSE 72 mg/dL (75-110)
[2019-07-09 15:13] LABS: ABSOLUTE LYMPHOCYTES# (MANUAL) 0.9 10^3/uL (0.5-4.7); ABSOLUTE MONOCYTES # (MANUAL) 2.4 10^3/uL (0.1-1.4); BASOPHILS % (MANUAL) 2 % (0-2); EOSINOPHILS % (MANUAL) 0 % (0-6); LYMPHOCYTES % (MANUAL) 6 % (13-45); METAMYELOCYTES % (MANUAL) 1 % (0-1); MONOCYTES % (MANUAL) 16 % (3-13); SEGMENTED NEUTROPHILS % (MAN) 75 % (42-78); TOTAL CELLS COUNTED 100
[2019-07-09 15:16] LABS: ANISOCYTOSIS SLIGHT; PLATELET COMMENT INCREASED
[2019-07-09 15:17] LABS: SCHISTOCYTES SLIGHT
[2019-07-09] MEDS: LATANOPROST 0.005% OPH SOLN 2.5 ML OU SCH (23:19)
[2019-07-09] MEDS: CITALOPRAM HYDROBROMIDE 20 MG TABLET PO SCH (23:19)
[2019-07-10] MEDS: HEPARIN SOD (PORCINE) 5,000 UNIT/ML 1 ML VIAL SUBCUT SCH ×3 (05:48→22:30)
[2019-07-10 06:01] LABS: HEMATOCRIT 26.3 % (36.0-47.0); HEMOGLOBIN 8.8 g/dL (12.0-15.5); MEAN CORPUSCULAR HEMOGLOBIN 28.6 pg (27.0-33.4); MEAN CORPUSCULAR HGB CONC 33.3 g/dL (32.0-36.0); MEAN CORPUSCULAR VOLUME 86 fl (80-97); PLATELET COUNT 529 10^3/uL (150-450); RED BLOOD COUNT 3.07 10^6/uL (3.72-5.28); RED CELL DISTRIBUTION WIDTH 16.7 % (11.5-14.0); WHITE BLOOD COUNT 11.9 10^3/uL (4.0-10.5)
[2019-07-10 06:56] LABS: ABSOLUTE LYMPHOCYTES# (MANUAL) 0.7 10^3/uL (0.5-4.7); ABSOLUTE MONOCYTES # (MANUAL) 1.4 10^3/uL (0.1-1.4); BASOPHILS % (MANUAL) 1 % (0-2); EOSINOPHILS % (MANUAL) 0 % (0-6); LYMPHOCYTES % (MANUAL) 6 % (13-45); MONOCYTES % (MANUAL) 12 % (3-13); SEGMENTED NEUTROPHILS % (MAN) 81 % (42-78); TOTAL CELLS COUNTED 100
[2019-07-10 06:57] LABS: ANISOCYTOSIS SLIGHT; HYPERSEGMENTED NEUTROPHILS PRESENT; OVALOCYTES SLIGHT; PLATELET COMMENT INCREASED; POIKILOCYTOSIS SLIGHT
[2019-07-10] MEDS: IPRATROPIUM/ALBUTEROL 0.5-2.5 MG/3 ML AMPUL NEB SCH ×4 (07:23→20:45)
[2019-07-10] MEDS: FERROUS SULFATE 325 MG TABLET PO SCH ×2 (08:36→17:10)
[2019-07-10] MEDS: ROPINIROLE HCL 0.25 MG TABLET PO SCH ×2 (10:40→17:10)
[2019-07-10] MEDS: MULTIVITAMIN TABLET PO SCH (10:40)
[2019-07-10] MEDS: HYDROCODONE/ACETAMINOPHEN 10-325 MG TABLET PO PRN ×2 (10:40→16:37)
[2019-07-10] MEDS: GABAPENTIN 300 MG CAPSULE PO SCH ×2 (10:40→22:35)
[2019-07-10] MEDS: DOCUSATE SODIUM 100 MG CAPSULE PO SCH ×2 (10:40→17:10)
[2019-07-10] MEDS: DILTIAZEM HCL 30 MG TABLET PO SCH ×2 (10:41→17:10)
[2019-07-10] MEDS: FLUTICASONE NASAL SPRAY 50 MCG/SPRY 120 SPRAY/16 GM NASL SCH (10:41)
[2019-07-10] MEDS: POTASSIUM CHLORIDE 10 MEQ TABLET.ER PO SCH ×2 (10:41→22:32)
[2019-07-10] MEDS: POLYETHYLENE GLYCOL 3350 POWDER 17 GM/1 PACKET PO SCH (10:41)
[2019-07-10] MEDS: AZITHROMYCIN 500 MG in DEXTROSE 5%-WATER 250 ML IV SCH (14:59)
--- NOTE | 2019-07-10 19:31 | PDOC PROGRESS REPORT ---
Subjective Progress Note for:: 07/10/19 Subjective:: The patient is a 63-year-old female with a past medical history of non-STEMI, COPD, anemia, opiate dependent chronic pain, polypharmacy, depression, and substance abuse who was admitted 06/06/2019 to the ICU for septic shock secondary to community-acquired pneumonia. Now with persistent upper lobe obstructive PNA with respiratory failure w/ hypoxia. Patient was seen on morning rounds. She was found resting in bed, comfortably, on supplemental oxygen via nasal cannula at 5 L/min. She does continue to use BiPAP at night and intermittently during the day when she develops respiratory fatigue. She is not home O2 dependent. She is A&Ox4. She does report continued dyspnea while at rest and ambulatory intolerance secondary to rapidly worsening MARIA. She denies sputum production. She denies fever, chills, chest pain, orthopnea, abdominal pain, nausea and vom iting. She has no questions or concerns at this time. No concerns per nursing. Chest tube has been clamped for approximately 18 hours. Reason For Visit: PNA,SEPTIC SHOCK Physical Exam Vital Signs: Temp Pulse Resp BP Pulse Ox 99.2 F 94 16 107/64 96 07/10/19 14:57 07/10/19 16:17 07/10/19 16:17 07/10/19 14:57 07/10/19 16:17 Intake & Output 07/09/19 07/10/19 07/11/19 06:59 06:59 06:59 Intake Total 630 1090 588 Output Total 1800 2300 700 Balance -1170 -1210 -112 Weight 67.8 kg 63.2 kg General appearance: PRESENT: no acute distress, cooperative, well-developed, well-nourished Head exam: PRESENT: atraumatic, normocephalic Eye exam: PRESENT: conjunctiva pink, EOMI, PERRLA. ABSENT: scleral icterus Ear exam: PRESENT: normal external ear exam Mouth exam: PRESENT: moist, tongue midline Respiratory exam: PRESENT: decreased breath sounds - Absent right upper read, diminished right lower, prolonged expiratory phas, rhonchi - Right side, symmetrical, tachypnea, unlabored, other - Supplemental oxygen and BiPAP. ABSENT: rales, wheezes Cardiovascular exam: PRESENT: RRR, +S1, +S2. ABSENT: diastolic murmur, rubs, systolic murmur Pulses: PRESENT: normal dorsalis pedis pul Vascular exam: PRESENT: normal capillary refill GI/Abdominal exam: PRESENT: normal bowel sounds, soft. ABSENT: distended, guarding, mass, organolmegaly, rebound, tenderness Rectal exam: PRESENT: deferred Extremities exam: PRESENT: full ROM. ABSENT: calf tenderness, clubbing, pedal edema Neurological exam: PRESENT: alert, awake, oriented to person, oriented to place, oriented to time, oriented to situation, CN II-XII grossly intact. ABSENT: motor sensory deficit Psychiatric exam: PRESENT: appropriate affect, normal mood. ABSENT: homicidal ideation, suicidal ideation Skin exam: PRESENT: dry, intact, warm. ABSENT: cyanosis, rash Results Laboratory Results: 07/10/19 05:20 07/09/19 13:47 07/10/19 05:20 WBC 11.9 H RBC 3.07 L Hgb 8.8 L Hct 26.3 L MCV 86 MCH 28.6 MCHC 33.3 RDW 16.7 H Plt Count 529 H Seg Neutrophils % Not Reportable 07/06/19 12:23 Pleural Fluid - Right Pleural Effusion Gram Stain - Final 07/06/19 12:23 Pleural Fluid - Right Pleural Effusion Body Fluid Culture - Final NO AEROBIC OR ANAEROBIC ORGANISMS RECOVERED 06/05/19 06/05/19 06/08/19 21:52 22:51 01:10 Creatine Kinase Cancelled CK-MB (CK-2) Troponin I Cancelled < 0.012 NT-Pro-B Natriuret Pep Cancelled [id number] H 06/08/19 06/08/19 06/14/19 01:10 02:00 04:40 Creatine Kinase < 20 L < 20 L CK-MB (CK-2) 1.21 Troponin I 0.032 NT-Pro-B Natriuret Pep [id number] H 06/14/19 04:40 Creatine Kinase CK-MB (CK-2) < 0.22 Troponin I < 0.012 NT-Pro-B Natriuret Pep Impressions: KUB X-Ray 06/06/19 00:00 IMPRESSION: Nasogastric tube in the gastric body Femoral line in place on the right Abdomen/Pelvis CT 06/10/19 00:00 IMPRESSION: 1. Extensive lung findings as above. When compared to 06/06/2019, right pleural effusion is slightly progressive and there is a new small left pleural effusion. Consolidation in the right lung has improved. Progressive interstitial infiltrate in the right upper lobe with new patchy interstitial infiltrate in the left upper lobe. 2. Other findings as above, stable. IMPRESSION: 1. Limited abdominal valuation given noncontrast technique, motion and external source artifacts as described. 2. Ascites. No overt bowel or urinary obstruction. 3. Generalized soft tissue edema/anasarca. Head CT 06/11/19 00:00 IMPRESSION: 1. No acute intracranial findings. Head MRI 06/24/19 00:00 IMPRESSION: 1. Chronic brain changes, small vessel disease and mild atrophy. No recent CVA or acute intracranial abnormality allowing for bilateral mastoid disease. EVIDENCE OF ACUTE STROKE: NO. Chest CT 06/25/19 00:00 IMPRESSION: 1. Mild improvement aeration in the right upper lobe. There is persistent dense consolidation consistent with pneumonia. Lack of IV contrast limits evaluation for soft tissue masses. 2. Increasing right-sided pleural effusion. 3. New moderate size left pleural effusion. Fluoroscopy 07/04/19 00:00 IMPRESSION: IMAGE(S) OBTAINED DURING PROCEDURE. Thoracentesis Ultrasound 07/06/19 00:00 IMPRESSION: SUCCESSFUL PLACEMENT OF A RIGHT SIDED CHEST TUBE USING ULTRASOUND GUIDANCE. Chest X-Ray 07/09/19 06:00 IMPRESSION: Slight increase in right lower lobe airspace disease since prior study. No other interval change. Right-sided chest tube remains in place. Assessment and Plan - Diagnosis (1) Pneumonia due to Escherichia coli Qualifiers: Laterality: right Lung location: upper lobe of lung Qualified Code(s): J15.5 - Pneumonia due to Escherichia coli Is this a current diagnosis for this admission?: Yes Plan: Received full course of meropenem. Continues to have a persistent right upper lobe obstructive pattern. Discussed with Dr. Olmedo, [facility] regarding Dr. Guthrie's recommendation for transfer for navigational bronchoscopy. Dr. bhardwaj reviewed all of her images. He suggests that this is likely a mucous plug or perhaps blood clot as the right upper lobe obstruction appeared to occur quite rapidly on or about June 25 and cytology thus far are negative. He recommends aggressive pulmonary toilet and repeat chest CT imaging. At this time, he does not feel that navigational bronchoscopy would be of benefit but is available should the patient worsen or if we have further questions. Continue IV cefepime Continues on supplemental oxygen and BiPAP as needed to maintain saturations greater than 89%. Continues scheduled and as needed nebulizer treatments. We will resume twice daily Mucomyst therapy. Resume Mucinex. Continue aggressive pulmonary toilet. (2) Acute respiratory failure with hypoxia Is this a current diagnosis for this admission?: Yes Plan: Secondary to pneumonia. Continues to require nasal cannula 5 L/min with frequent and nightly BiPAP use. Remaining evaluation management as above. (3) Pleural effusion Is this a current diagnosis for this admission?: Yes Plan: Secondary to #1. Chest tube in place; has been clamped for approximately 24 hours. Effusion appears to be transudative, cultures negative, cytology negative. Surgery is consulted for management; appreciate their assistance. (4) Leukocytosis Qualifiers: Leukocytosis type: unspecified Qualified Code(s): D72.829 - Elevated white blood cell count, unspecified Is this a current diagnosis for this admission?: Yes Plan: Gradual downward trend. Patient was admitted 06/05/2019 with WBC 4.1. Peaked on 1230 at 37.5. Has vacillated but overall continue to trend down since that time. Today white count is 11.9. T-max last 48 hours is 99.8. Patient continues on IV cefepime for a right upper lobe postobstructive pneumonia. Patient has multiple negative blood, bronchial washing, pleural fluid, and sputum cultures that have resulted negative with last positive cultures on 06/06/2019. She did receive appropriate IV meropenem therapy for her E. coli pneumonia and bacteremia at that time. (5) Anemia Qualifiers: Anemia type: iron deficiency Iron deficiency anemia type: chronic blood loss Qualified Code(s): D50.0 - Iron deficiency anemia secondary to blood loss (chronic) Is this a current diagnosis for this admission?: Yes Plan: Stable. Continue to monitor. (6) Urinary retention Is this a current diagnosis for this admission?: Yes Plan: Rojo cath in place. (7) Acute kidney injury (KATHLEEN) with acute tubular necrosis (ATN) Is this a current diagnosis for this admission?: Yes Plan: Resolved (8) Dehydration Is this a current diagnosis for this admission?: Yes Plan: Resolved (9) Thrombocytopenia Is this a current diagnosis for this admission?: Yes Plan: Resolved (10) Acute metabolic encephalopathy Is this a current diagnosis for this admission?: Yes Plan: Resolved (11) Diarrhea Qualifiers: Diarrhea type: unspecified type Qualified Code(s): R19.7 - Diarrhea, unspecified Is this a current diagnosis for this admission?: Yes Plan: Resolved (12) Sepsis with acute organ dysfunction and septic shock Qualifiers: Sepsis type: Escherichia coli Severe sepsis acute organ dysfunction type: acute renal failure Acute renal failure type: with acute tubular necrosis Qualified Code(s): A41.51 - Sepsis due to Escherichia coli [E. coli]; R65.21 - Severe sepsis with septic shock; N17.0 - Acute kidney failure with tubular necrosis Is this a current diagnosis for this admission?: Yes Plan: Treated and resolved (13) Hypo-osmolar hyponatremia Is this a current diagnosis for this admission?: Yes Plan: Serum sodium is currently normal. Continue to monitor. (14) E coli bacteremia Is this a current diagnosis for this admission?: Yes Plan: Treated and resolved (15) Debility Is this a current diagnosis for this admission?: Yes Plan: We will need to strongly encourage increased activity Physical therapy consulted. (16) Constipation Qualifiers: Constipation type: unspecified constipation type Qualified Code(s): K59.00 - Constipation, unspecified Is this a current diagnosis for this admission?: Yes Plan: Resolved. Continue stool softeners. - Time Time Spent with patient: 35 or more minutes Medications reviewed and adjusted accordingly: Yes
[2019-07-10] MEDS: ACETYLCYSTEINE 20% SOLN 800 MG/4 ML VIAL.NEB NEB SCH (20:45)
[2019-07-10] MEDS: CITALOPRAM HYDROBROMIDE 20 MG TABLET PO SCH (22:31)
[2019-07-10] MEDS: CEFEPIME 1 GM/D5W RTU 1 GM/50 ML RTUPB IV SCH (22:33)
[2019-07-10] MEDS: GUAIFENESIN 600 MG TABLET.SA PO SCH (22:34)
[2019-07-10] MEDS: LATANOPROST 0.005% OPH SOLN 2.5 ML OU SCH (22:36)
[2019-07-11 06:45] LABS: HEMATOCRIT 26.7 % (36.0-47.0); HEMOGLOBIN 8.7 g/dL (12.0-15.5); MEAN CORPUSCULAR HGB CONC 32.5 g/dL (32.0-36.0); MEAN CORPUSCULAR VOLUME 86 fl (80-97); PLATELET COUNT 517 10^3/uL (150-450); RED BLOOD COUNT 3.09 10^6/uL (3.72-5.28); RED CELL DISTRIBUTION WIDTH 16.8 % (11.5-14.0); WHITE BLOOD COUNT 12.1 10^3/uL (4.0-10.5)
[2019-07-11] MEDS: HEPARIN SOD (PORCINE) 5,000 UNIT/ML 1 ML VIAL SUBCUT SCH ×3 (06:54→22:21)
[2019-07-11] MEDS: IPRATROPIUM/ALBUTEROL 0.5-2.5 MG/3 ML AMPUL NEB SCH ×4 (07:58→20:34)
[2019-07-11] MEDS: ACETYLCYSTEINE 20% SOLN 800 MG/4 ML VIAL.NEB NEB SCH ×2 (08:01→20:38)
[2019-07-11] MEDS: FERROUS SULFATE 325 MG TABLET PO SCH ×2 (08:34→17:10)
[2019-07-11] MEDS: HYDROCODONE/ACETAMINOPHEN 10-325 MG TABLET PO PRN (08:34)
[2019-07-11] MEDS: MULTIVITAMIN TABLET PO SCH (09:47)
[2019-07-11] MEDS: GABAPENTIN 300 MG CAPSULE PO SCH ×2 (09:47→22:25)
[2019-07-11] MEDS: DOCUSATE SODIUM 100 MG CAPSULE PO SCH ×2 (09:47→17:01)
[2019-07-11] MEDS: FLUTICASONE NASAL SPRAY 50 MCG/SPRY 120 SPRAY/16 GM NASL SCH (09:47)
[2019-07-11] MEDS: POTASSIUM CHLORIDE 10 MEQ TABLET.ER PO SCH ×2 (09:47→22:22)
[2019-07-11] MEDS: ROPINIROLE HCL 0.25 MG TABLET PO SCH ×2 (09:47→17:10)
[2019-07-11] MEDS: DILTIAZEM HCL 30 MG TABLET PO SCH ×2 (09:47→17:10)
[2019-07-11] MEDS: GUAIFENESIN 600 MG TABLET.SA PO SCH ×2 (09:47→22:25)
[2019-07-11] MEDS: POLYETHYLENE GLYCOL 3350 POWDER 17 GM/1 PACKET PO SCH (09:48)
[2019-07-11] MEDS: CEFEPIME 1 GM/D5W RTU 1 GM/50 ML RTUPB IV SCH ×2 (09:48→22:25)
--- NOTE | 2019-07-11 09:57 | RADIOLOGY REPORT (SQ) ---
EXAM DESCRIPTION: CT CHEST WITHOUT COMPLETED DATE/TIME: 07/11/2019 9:13 am REASON FOR STUDY: hypoxia, RUL PNA COMPARISON: 06/25/2019 TECHNIQUE: CT scan performed of the chest without intravenous contrast. Images reviewed with lung, soft tissue and bone windows. Reconstructed coronal and sagittal MPR images reviewed. All images st ored on PACS. All CT scanners at this facility use dose modulation, iterative reconstruction, and/or weight based d osing when appropriate to reduce radiation dose to as low as reasonably achievable (ALARA). [facility]: Dose Right [facility]: CareDose [facility]: Dose Right [facility]: Teradose 4D [facility]: Smart SendUs RADIATION DOSE: CT Rad equipment meets quality standard of care and radiation dose reduction techniq ues were employed. CTDIvol: 5.0 mGy. DLP: 219 mGy-cm. mGy. LIMITATIONS: No technical limitations. FINDINGS: LUNGS AND PLEURA: There is persistent dense opacification of the right upper lobe with pat karlo areas of aeration and associated air bronchograms. Additional patchy consolidation within the ri ght middle lobe, not significantly changed from prior. Improved aeration of the right lower lobe wit h persistent consolidation posteriorly. There is decreased size of the right-sided pleural effusion with moderate residual hydropneumothorax posteriorly. Small left pleural effusion. Mild left basila r atelectasis without additional airspace disease. HILAR AND MEDIASTINAL STRUCTURES: Shotty mediastinal nodes without discrete adenopathy evidence of vo lume loss with rightward mediastinal shift. HEART AND VASCULAR STRUCTURES: Scattered coronary atherosclerosis. Normal heart size. No significan t pericardial effusion. UPPER ABDOMEN: Mesenteric calcifications. No acute findings. Diffuse thickening of the left adrenal gland without discrete nodule. THYROID AND OTHER SOFT TISSUES: No masses. No adenopathy. BONES: No significant finding. HARDWARE: Small bore right-sided chest tube in place. OTHER: No other significant findings. IMPRESSION: 1. Persistent dense consolidation within the right upper lobe. Patchy right middle and lower lobe consolidation with improved aeration from prior. Findings likely represent combination o f atelectasis and airspace disease. 2. Decreased size of the right-sided pleural effusion with small bore chest tube in place. Persiste nt moderate posterior hydropneumothorax. 3. Trace left effusion. TECHNICAL DOCUMENTATION: JOB ID: [id number] Quality ID # [id number]: Final reports with documentation of one or more dose reduction techniques (e.g., Au tomated exposure control, adjustment of the mA and/or kV according to patient size, use of iterative reconstruction technique) 2010 [employer]- All Rights Reserved Reading location - IP/workstation name: [email or web address]
[2019-07-11] MEDS: METHYLPREDNISOLONE INJ 125 MG/2 ML SDV IV SCH ×2 (13:23→22:20)
--- NOTE | 2019-07-11 17:00 | PDOC PROGRESS REPORT ---
Subjective Progress Note for:: 07/11/19 Subjective:: The patient is a 63-year-old female with a past medical history of non-STEMI, COPD, anemia, opiate dependent chronic pain, polypharmacy, depression, and substance abuse who was admitted 06/06/2019 to the ICU for septic shock secondary to community-acquired pneumonia. Now with persistent upper lobe obstructive PNA with respiratory failure w/ hypoxia. Patient was seen on morning rounds. She was found resting in bed, comfortably, on supplemental oxygen via nasal cannula at 5 L/min. She does continue to use BiPAP at night and intermittently during the day when she develops respiratory fatigue. She is not home O2 dependent. She is A&Ox4. She does report continued dyspnea while at rest and ambulatory intolerance secondary to rapidly worsening MARIA. She denies sputum production. Symptoms are essentially unchanged from yesterday. She denies fever, chills, chest pain, orthopnea, abdominal pain, nausea and vomiting. She has no questions or concerns at this time. No concerns per nursing. Chest tube remains clamped. Reason For Visit: PNA,SEPTIC SHOCK Physical Exam Vital Signs: Temp Pulse Resp BP Pulse Ox 98.8 F 87 16 122/73 98 07/11/19 15:01 07/11/19 16:03 07/11/19 16:03 07/11/19 15:01 07/11/19 16:03 Intake & Output 07/10/19 07/11/19 07/12/19 06:59 06:59 06:59 Intake Total 1090 998 640 Output Total 2300 1200 400 Balance -1210 -202 240 Weight 63.2 kg 62 kg General appearance: PRESENT: no acute distress, cooperative, well-developed, well-nourished Head exam: PRESENT: atraumatic, normocephalic Eye exam: PRESENT: conjunctiva pink, EOMI, PERRLA. ABSENT: scleral icterus Ear exam: PRESENT: normal external ear exam Mouth exam: PRESENT: moist, tongue midline Neck exam: ABSENT: carotid bruit, JVD, lymphadenopathy, thyromegaly Respiratory exam: PRESENT: decreased breath sounds - Right upper read, prolonged expiratory phas, rhonchi - Right middle and lower, symmetrical, unlabored, other - Supplemental oxygen via nasal cannula. ABSENT: rales, wheezes Cardiovascular exam: PRESENT: RRR. ABSENT: diastolic murmur, rubs, systolic murmur Pulses: PRESENT: normal dorsalis pedis pul Vascular exam: PRESENT: normal capillary refill GI/Abdominal exam: PRESENT: normal bowel sounds, soft. ABSENT: distended, guarding, mass, organolmegaly, rebound, tenderness Rectal exam: PRESENT: deferred Extremities exam: PRESENT: full ROM. ABSENT: calf tenderness, clubbing, pedal edema Neurological exam: PRESENT: alert, awake, oriented to person, oriented to place, oriented to time, oriented to situation, CN II-XII grossly intact. ABSENT: motor sensory deficit Psychiatric exam: PRESENT: appropriate affect, normal mood. ABSENT: homicidal ideation, suicidal ideation Skin exam: PRESENT: dry, intact, warm. ABSENT: cyanosis, rash Results Laboratory Results: 07/11/19 05:43 07/09/19 13:47 07/11/19 05:43 WBC 12.1 H RBC 3.09 L Hgb 8.7 L Hct 26.7 L MCV 86 MCH 28.0 MCHC 32.5 RDW 16.8 H Plt Count 517 H 06/05/19 06/05/19 06/08/19 21:52 22:51 01:10 Creatine Kinase Cancelled CK-MB (CK-2) Troponin I Cancelled < 0.012 NT-Pro-B Natriuret Pep Cancelled [id number] H 06/08/19 06/08/19 06/14/19 01:10 02:00 04:40 Creatine Kinase < 20 L < 20 L CK-MB (CK-2) 1.21 Troponin I 0.032 NT-Pro-B Natriuret Pep [id number] H 06/14/19 04:40 Creatine Kinase CK-MB (CK-2) < 0.22 Troponin I < 0.012 NT-Pro-B Natriuret Pep Impressions: KUB X-Ray 06/06/19 00:00 IMPRESSION: Nasogastric tube in the gastric body Femoral line in place on the right Abdomen/Pelvis CT 06/10/19 00:00 IMPRESSION: 1. Extensive lung findings as above. When compared to 06/06/2019, right pleural effusion is slightly progressive and there is a new small left pleural effusion. Consolidation in the right lung has improved. Progressive interstitial infiltrate in the right upper lobe with new patchy interstitial infiltrate in the left upper lobe. 2. Other findings as above, stable. IMPRESSION: 1. Limited abdominal valuation given noncontrast technique, motion and external source artifacts as described. 2. Ascites. No overt bowel or urinary obstruction. 3. Generalized soft tissue edema/anasarca. Head CT 06/11/19 00:00 IMPRESSION: 1. No acute intracranial findings. Head MRI 06/24/19 00:00 IMPRESSION: 1. Chronic brain changes, small vessel disease and mild atrophy. No recent CVA or acute intracranial abnormality allowing for bilateral mastoid disease. EVIDENCE OF ACUTE STROKE: NO. Fluoroscopy 07/04/19 00:00 IMPRESSION: IMAGE(S) OBTAINED DURING PROCEDURE. Thoracentesis Ultrasound 07/06/19 00:00 IMPRESSION: SUCCESSFUL PLACEMENT OF A RIGHT SIDED CHEST TUBE USING ULTRASOUND GUIDANCE. Chest X-Ray 07/09/19 06:00 IMPRESSION: Slight increase in right lower lobe airspace disease since prior study. No other interval change. Right-sided chest tube remains in place. Chest CT 07/11/19 08:00 IMPRESSION: 1. Persistent dense consolidation within the right upper lobe. Patchy right middle and lower lobe consolidation with improved aeration from prior. Findings likely represent combination of atelectasis and airspace disease. 2. Decreased size of the right-sided pleural effusion with small bore chest tube in place. Persistent moderate posterior hydropneumothorax. 3. Trace left effusion. Assessment and Plan - Diagnosis (1) Pneumonia due to Escherichia coli Qualifiers: Laterality: right Lung location: upper lobe of lung Qualified Code(s): J15.5 - Pneumonia due to Escherichia coli Is this a current diagnosis for this admission?: Yes Plan: Received full course of meropenem. Continues to have a persistent right upper lobe obstructive pattern. Chest CT (07/11/2019) persistent dense consolidation to the right upper lobe with patchy right middle and lower lobe consolidation. RML and RLL are slightly improved from prior. Represents atelectasis and airspace disease. There is decreased right-sided effusion but persistent moderate posterior hydropneumothorax. Discussed with Dr. Olmedo, [facility] pulmonology regarding Dr. Guthrie's r ecommendation for transfer for navigational bronchoscopy. Dr. Olmedo reviewed all of her images. He suggests that this is likely a mucous plug or perhaps blood clot as the right upper lobe obstruction appeared to occur quite rapidly on or about June 25 and cytology thus far are negative. He recommends aggressive pulmonary toilet and repeat chest CT imaging. At this time, he does not feel that navigational bronchoscopy would be of benefit but is available should the patient worsen or if we have further questions. He also recommends considering steroid therapy as Dr. Guthrie's operative note suggests inflammation. Continue IV cefepime Continues on supplemental oxygen and BiPAP as needed to maintain saturations greater than 89%. Continues scheduled and as needed nebulizer treatments. We will resume twice daily Mucomyst therapy. Start IV Solu-Medrol. Resume Mucinex. Continue aggressive pulmonary toilet. (2) Acute respiratory failure with hypoxia Is this a current diagnosis for this admission?: Yes Plan: Secondary to pneumonia. Continues to require nasal cannula 5 L/min with frequent and nightly BiPAP use. Have asked nursing to wean supplemental oxygen; keep SPO2 greater than 90% Remaining evaluation management as above. (3) Pleural effusion Is this a current diagnosis for this admission?: Yes Plan: Secondary to #1. Chest tube in place; has been clamped for approximately 24 hours. Effusion appears to be transudative, cultures negative, cytology negative. Surgery is consulted for management; appreciate their assistance. (4) Leukocytosis Qualifiers: Leukocytosis type: unspecified Qualified Code(s): D72.829 - Elevated white blood cell count, unspecified Is this a current diagnosis for this admission?: Yes Plan: Gradual downward trend. Patient was admitted 06/05/2019 with WBC 4.1. Peaked on 06/11 at 37.5. Has vacillated but overall continue to trend down since that time. Today white count is 12.1 T-max last 48 hours is 99.8. Patient continues on IV cefepime for a right upper lobe postobstructive pneumonia. Patient has multiple negative blood, bronchial washing, pleural fluid, and sputum cultures that have resulted negative with last positive cultures on 06/06/2019. She did receive appropriate IV meropenem therapy for her E. coli pneumonia and bacteremia at that time. Anticipate increased WBCs secondary to start of IV Solu-Medrol. (5) Anemia Qualifiers: Anemia type: iron deficiency Iron deficiency anemia type: chronic blood loss Qualified Code(s): D50.0 - Iron deficiency anemia secondary to blood loss (chronic) Is this a current diagnosis for this admission?: Yes Plan: Stable. Continue to monitor. (6) Urinary retention Is this a current diagnosis for this admission?: Yes Plan: Rojo cath in place. (7) Acute kidney injury (KATHLEEN) with acute tubular necrosis (ATN) Is this a current diagnosis for this admission?: Yes Plan: Resolved (8) Dehydration Is this a current diagnosis for this admission?: Yes Plan: Resolved (9) Thrombocytopenia Is this a current diagnosis for this admission?: Yes Plan: Resolved (10) Acute metabolic encephalopathy Is this a current diagnosis for this admission?: Yes Plan: Resolved (11) Diarrhea Qualifiers: Diarrhea type: unspecified type Qualified Code(s): R19.7 - Diarrhea, unspec ified Is this a current diagnosis for this admission?: Yes Plan: Resolved (12) Sepsis with acute organ dysfunction and septic shock Qualifiers: Sepsis type: Escherichia coli Severe sepsis acute organ dysfunction type: acute renal failure Acute renal failure type: with acute tubular necrosis Qualified Code(s): A41.51 - Sepsis due to Escherichia coli [E. coli]; R65.21 - Severe sepsis with septic shock; N17.0 - Acute kidney failure with tubular necrosis Is this a current diagnosis for this admission?: Yes Plan: Treated and resolved (13) Hypo-osmolar hyponatremia Is this a current diagnosis for this admission?: Yes Plan: Serum sodium is currently normal. Continue to monitor. (14) E coli bacteremia Is this a current diagnosis for this admission?: Yes Plan: Treated and resolved (15) Debility Is this a current diagnosis for this admission?: Yes Plan: We will need to strongly encourage increased activity Physical therapy consulted. (16) Constipation Qualifiers: Constipation type: unspecified constipation type Qualified Code(s): K59.00 - Constipation, unspecified Is this a current diagnosis for this admission?: Yes Plan: Resolved. Continue stool softeners.
[2019-07-11] MEDS: CITALOPRAM HYDROBROMIDE 20 MG TABLET PO SCH (22:21)
[2019-07-11] MEDS: LATANOPROST 0.005% OPH SOLN 2.5 ML OU SCH (22:26)
[2019-07-12] MEDS: HEPARIN SOD (PORCINE) 5,000 UNIT/ML 1 ML VIAL SUBCUT SCH ×3 (06:00→22:21)
[2019-07-12] MEDS: METHYLPREDNISOLONE INJ 125 MG/2 ML SDV IV SCH ×3 (06:00→22:22)
[2019-07-12] MEDS: IPRATROPIUM/ALBUTEROL 0.5-2.5 MG/3 ML AMPUL NEB SCH ×4 (08:20→20:12)
[2019-07-12] MEDS: ACETYLCYSTEINE 20% SOLN 800 MG/4 ML VIAL.NEB NEB SCH ×2 (08:20→20:12)
[2019-07-12] MEDS: POLYETHYLENE GLYCOL 3350 POWDER 17 GM/1 PACKET PO SCH (09:49)
[2019-07-12] MEDS: MULTIVITAMIN TABLET PO SCH (09:56)
[2019-07-12] MEDS: FERROUS SULFATE 325 MG TABLET PO SCH ×2 (09:56→17:44)
[2019-07-12] MEDS: ROPINIROLE HCL 0.25 MG TABLET PO SCH ×2 (09:57→17:44)
[2019-07-12] MEDS: GUAIFENESIN 600 MG TABLET.SA PO SCH ×2 (09:57→22:21)
[2019-07-12] MEDS: DOCUSATE SODIUM 100 MG CAPSULE PO SCH ×2 (09:57→17:40)
[2019-07-12] MEDS: GABAPENTIN 300 MG CAPSULE PO SCH ×2 (09:57→22:21)
[2019-07-12] MEDS: POTASSIUM CHLORIDE 10 MEQ TABLET.ER PO SCH ×2 (09:57→22:12)
[2019-07-12] MEDS: DILTIAZEM HCL 30 MG TABLET PO SCH ×2 (09:58→17:41)
[2019-07-12] MEDS: FLUTICASONE NASAL SPRAY 50 MCG/SPRY 120 SPRAY/16 GM NASL SCH (09:58)
[2019-07-12] MEDS: CEFEPIME 1 GM/D5W RTU 1 GM/50 ML RTUPB IV SCH ×2 (09:59→22:21)
--- NOTE | 2019-07-12 11:34 | RADIOLOGY REPORT (SQ) ---
EXAM DESCRIPTION: CHEST SINGLE VIEW COMPLETED DATE/TIME: 07/12/2019 11:17 am REASON FOR STUDY: dyspnea, chest pain COMPARISON: 07/09/2019 NUMBER OF VIEWS: One view. TECHNIQUE: Single frontal radiographic view of the chest acquired. LIMITATIONS: None. FINDINGS: LUNGS AND PLEURA: Persistent dense opacification throughout the upper half of the right efren ng consistent with right upper lobe pneumonia and volume loss. Small caliber right chest tube remain s in place. Improving aeration throughout the lower lung field. MEDIASTINUM AND HILAR STRUCTURES: Stable. HEART AND VASCULAR STRUCTURES: Stable. BONES: No acute findings. HARDWARE: As above. OTHER: No other significant finding. IMPRESSION: Improving. Persistent marked consolidation and volume loss right upper lobe. TECHNICAL DOCUMENTATION: JOB ID: [id number] [facility]- All Rights Reserved Reading location - IP/workstation name: [email or web address]
--- NOTE | 2019-07-12 18:25 | PDOC PROGRESS REPORT ---
Subjective Progress Note for:: 07/12/19 Subjective:: The patient is a 63-year-old female with a past medical history of non-STEMI, COPD, anemia, opiate dependent chronic pain, polypharmacy, depression, and substance abuse who was admitted 06/06/2019 to the ICU for septic shock secondary to community-acquired pneumonia. Now with persistent upper lobe obstructive PNA with respiratory failure w/ hypoxia. Patient was seen on morning rounds. She was found resting in bed, comfortably, on supplemental oxygen via nasal cannula at 4 L/min. She does continue to use BiPAP at night and intermittently during the day when she develops respiratory fatigue. She is not home O2 dependent. She is A&Ox4. She reports increased cough and sputum production today; overall feeling somewhat worse. She denies fever, chills, chest pain, orthopnea, abdominal pain, nausea and vomiting. She has no other questions or concerns at this time. No concerns per nursing. Reason For Visit: PNA,SEPTIC SHOCK Physical Exam Vital Signs: Temp Pulse Resp BP Pulse Ox 98.5 F 107 H 20 131/90 H 92 07/12/19 15:22 07/12/19 15:22 07/12/19 15:22 07/12/19 15:22 07/12/19 15:22 Intake & Output 07/11/19 07/12/19 07/13/19 06:59 06:59 06:59 Intake Total 998 1270 770 Output Total 1200 1250 500 Balance -202 20 270 Weight 62 kg 61.8 kg General appearance: PRESENT: no acute distress, cooperative, well-developed, well-nourished Head exam: PRESENT: atraumatic, normocephalic Eye exam: PRESENT: conjunctiva pink, EOMI, PERRLA. ABSENT: scleral icterus Ear exam: PRESENT: normal external ear exam Mouth exam: PRESENT: moist, tongue midline Respiratory exam: PRESENT: prolonged expiratory phas, rhonchi - RUL, RML, RLL, LLL, symmetrical, unlabored, other - Supplemental oxygen via nasal cannula. Decreased oxygen requirement today. Increased air movement to right upper lobe. ABSENT: rales, wheezes Cardiovascular exam: PRESENT: RRR, tachycardia - HR <110. ABSENT: diastolic murmur, rubs, systolic murmur Pulses: PRESENT: normal dorsalis pedis pul Vascular exam: PRESENT: normal capillary refill GI/Abdominal exam: PRESENT: normal bowel sounds, soft. ABSENT: distended, guarding, mass, organolmegaly, rebound, tenderness Rectal exam: PRESENT: deferred Extremities exam: PRESENT: full ROM. ABSENT: calf tenderness, clubbing, pedal edema Neurological exam: PRESENT: alert, awake, oriented to person, oriented to place, oriented to time, oriented to situation, CN II-XII grossly intact. ABSENT: motor sensory deficit Psychiatric exam: PRESENT: appropriate affect, normal mood. ABSENT: homicidal ideation, suicidal ideation Skin exam: PRESENT: dry, intact, warm. ABSENT: cyanosis, rash Results Laboratory Results: 07/11/19 05:43 07/09/19 13:47 06/05/19 06/05/19 06/08/19 21:52 22:51 01:10 Creatine Kinase Cancelled CK-MB (CK-2) Troponin I Cancelled < 0.012 NT-Pro-B Natriuret Pep Cancelled [id number] H 06/08/19 06/08/19 06/14/19 01:10 02:00 04:40 Creatine Kinase < 20 L < 20 L CK-MB (CK-2) 1.21 Troponin I 0.032 NT-Pro-B Natriuret Pep [id number] H 06/14/19 04:40 Creatine Kinase CK-MB (CK-2) < 0.22 Troponin I < 0.012 NT-Pro-B Natriuret Pep Impressions: KUB X-Ray 06/06/19 00:00 IMPRESSION: Nasogastric tube in the gastric body Femoral line in place on the right Abdomen/Pelvis CT 06/10/19 00:00 IMPRESSION: 1. Extensive lung findings as above. When compared to 06/06/2019, right pleural effusion is slightly progressive and there is a new small left pleural effusion. Consolidation in the right lung has improved. Progressive interstitial infiltrate in the right upper lobe with new patchy interstitial infiltrate in the left upper lobe. 2. Other findings as above, stable. IMPRESSION: 1. Limited abdominal valuation given noncontrast technique, motion and external source artifacts as described. 2. Ascites. No overt bowel or urinary obstruction. 3. Generalized soft tissue edema/anasarca. Head CT 06/11/19 00:00 IMPRESSION: 1. No acute intracranial findings. Head MRI 06/24/19 00:00 IMPRESSION: 1. Chronic brain changes, small vessel disease and mild atrophy. No recent CVA or acute intracranial abnormality allowing for bilateral mastoid disease. EVIDENCE OF ACUTE STROKE: NO. Fluoroscopy 07/04/19 00:00 IMPRESSION: IMAGE(S) OBTAINED DURING PROCEDURE. Thoracentesis Ultrasound 07/06/19 00:00 IMPRESSION: SUCCESSFUL PLACEMENT OF A RIGHT SIDED CHEST TUBE USING ULTRASOUND GUIDANCE. Chest CT 07/11/19 08:00 IMPRESSION: 1. Persistent dense consolidation within the right upper lobe. Patchy right middle and lower lobe consolidation with improved aeration from prior. Findings likely represent combination of atelectasis and airspace disease. 2. Decreased size of the right-sided pleural effusion with small bore chest tube in place. Persistent moderate posterior hydropneumothorax. 3. Trace left effusion. Chest X-Ray 07/12/19 00:00 IMPRESSION: Improving. Persistent marked consolidation and volume loss right upper lobe. Assessment and Plan - Diagnosis (1) Pneumonia due to Escherichia coli Qualifiers: Laterality: right Lung location: upper lobe of lung Qualified Code(s): J15.5 - Pneumonia due to Escherichia coli Is this a current diagnosis for this admission?: Yes Plan: Received full course of meropenem. Continues to have a persistent right upper lobe obstructive pattern. Chest CT (07/11/2019) persistent dense consolidation to the right upper lobe with patchy right middle and lower lobe consolidation. RML and RLL are slightly improved from prior. Represents atelectasis and airspace disease. There is decreased right-sided effusion but persistent moderate posterior hydropneumothorax. CXR (07/12/19) Improving. Persistent marked consolidation and volume loss RUL Discussed with Dr. Olmedo, [facility] pulmonology regarding Dr. Guthrie's recommendation for transfer for navigational bronchoscopy. Dr. Olmedo reviewed all of her images. He suggests that this is likely a mucous plug or perhaps blood clot as the right upper lobe obstruction appeared to occur quite rapidly on or about June 25 and cytology thus far are negative. He recommends aggressive pulmonary toilet and repeat chest CT imaging. At this time, he does not feel that navigational bronchoscopy would be of benefit but is available should the patient worsen or if we have further questions. He also recommends considering steroid therapy as Dr. Guthrie's operative note suggests inflamma tion. Continue IV cefepime Continues on supplemental oxygen and BiPAP as needed to maintain saturations greater than 89%. Continues scheduled and as needed nebulizer treatments. We will resume twice daily Mucomyst therapy. Continue IV Solu-Medrol. Continue Mucinex. Continue aggressive pulmonary toilet. (2) Acute respiratory failure with hypoxia Is this a current diagnosis for this admission?: Yes Plan: Secondary to pneumonia. Continues to require nasal cannula 3-4 L/min with frequent and nightly BiPAP use. Have asked nursing to wean supplemental oxygen; keep SPO2 greater than 90% Remaining evaluation management as above. (3) Pleural effusion Is this a current diagnosis for this admission?: Yes Plan: Secondary to #1. Chest tube in place Effusion appears to be transudative, cultures negative, cytology negative. Surgery is consulted for management; appreciate their assistance. (4) Leukocytosis Qualifiers: Leukocytosis type: unspecified Qualified Code(s): D72.829 - Elevated white blood cell count, unspecified Is this a current diagnosis for this admission?: Yes Plan: Gradual downward trend. Patient was admitted 06/05/2019 with WBC 4.1. Peaked on 06/11 at 37.5. Has vacillated but overall continue to trend down since that time. Today white count is 12.1 T-max last 48 hours is 99.8. Patient continues on IV cefepime for a right upper lobe postobstructive pneumonia. Patient has multiple negative blood, bronchial washing, pleural fluid, and sputum cultures that have resulted negative with last positive cultures on 06/06/2019. She did receive appropriate IV meropenem therapy for her E. coli pneumonia and bacteremia at that time. Anticipate increased WBCs secondary to start of IV Solu-Medrol. (5) Anemia Qualifiers: Anemia type: iron deficiency Iron deficiency anemia type: chronic blood loss Qualified Code(s): D50.0 - Iron deficiency anemia secondary to blood loss (chronic) Is this a current diagnosis for this admission?: Yes Plan: Stable. Continue to monitor. (6) Urinary retention Is this a current diagnosis for this admission?: Yes Plan: Rojo cath in place. (7) Acute kidney injury (KATHLEEN) with acute tubular necrosis (ATN) Is this a current diagnosis for this admission?: Yes Plan: Resolved (8) Dehydration Is this a current diagnosis for this admission?: Yes Plan: Resolved (9) Thrombocytopenia Is this a current diagnosis for this admission?: Yes Plan: Resolved (10) Acute metabolic encephalopathy Is this a current diagnosis for this admission?: Yes Plan: Resolved (11) Diarrhea Qualifiers: Diarrhea type: unspecified type Qualified Code(s): R19.7 - Diarrhea, unspecified Is this a current diagnosis for this admission?: Yes Plan: Resolved (12) Sepsis with acute organ dysfunction and septic shock Qualifiers: Sepsis type: Escherichia coli Severe sepsis acute organ dysfunction type: acute renal failure Acute renal failure type: with acute tubular necrosis Qualified Code(s): A41.51 - Sepsis due to Escherichia coli [E. coli]; R65.21 - Severe sepsis with septic shock; N17.0 - Acute kidney failure with tubular necrosis Is this a current diagnosis for this admission?: Yes Plan: Treated and resolved (13) Hypo-osmolar hyponatremia Is this a current diagnosis for this admission?: Yes Plan: Serum sodium is currently normal. Continue to monitor. (14) E coli bacteremia Is this a current diagnosis for this admission?: Yes Plan: Treated and resolved (15) Debility Is this a current diagnosis for this admission?: Yes Plan: We will need to strongly encourage increased activity Physical therapy consulted. (16) Constipation Qualifiers: Constipation type: unspecified constipation type Qualified Code(s): K59.00 - Constipation, unspecified Is this a current diagnosis for this admission?: Yes Plan: Resolved. Continue stool softeners. - Time Time Spent with patient: 25-34 minutes Medications reviewed and adjusted accordingly: Yes Anticipated discharge: SNF
[2019-07-12] MEDS: HYDROCODONE/ACETAMINOPHEN 10-325 MG TABLET PO PRN (19:47)
[2019-07-12] MEDS: CITALOPRAM HYDROBROMIDE 20 MG TABLET PO SCH (22:21)
[2019-07-12] MEDS: LATANOPROST 0.005% OPH SOLN 2.5 ML OU SCH (22:23)
[2019-07-13] MEDS: HEPARIN SOD (PORCINE) 5,000 UNIT/ML 1 ML VIAL SUBCUT SCH ×3 (05:43→21:14)
[2019-07-13] MEDS: METHYLPREDNISOLONE INJ 125 MG/2 ML SDV IV SCH ×3 (05:43→21:14)
[2019-07-13] MEDS: HYDROCODONE/ACETAMINOPHEN 10-325 MG TABLET PO PRN ×2 (05:44→18:23)
[2019-07-13] MEDS: IPRATROPIUM/ALBUTEROL 0.5-2.5 MG/3 ML AMPUL NEB SCH ×4 (08:16→20:21)
[2019-07-13] MEDS: ACETYLCYSTEINE 20% SOLN 800 MG/4 ML VIAL.NEB NEB SCH ×2 (08:16→20:21)
[2019-07-13] MEDS: FERROUS SULFATE 325 MG TABLET PO SCH ×2 (09:14→18:23)
[2019-07-13] MEDS: FLUTICASONE NASAL SPRAY 50 MCG/SPRY 120 SPRAY/16 GM NASL SCH (10:25)
[2019-07-13] MEDS: POLYETHYLENE GLYCOL 3350 POWDER 17 GM/1 PACKET PO SCH (10:27)
[2019-07-13] MEDS: GABAPENTIN 300 MG CAPSULE PO SCH ×2 (10:30→21:14)
[2019-07-13] MEDS: DOCUSATE SODIUM 100 MG CAPSULE PO SCH ×2 (10:30→18:25)
[2019-07-13] MEDS: GUAIFENESIN 600 MG TABLET.SA PO SCH ×2 (10:31→21:14)
[2019-07-13] MEDS: ROPINIROLE HCL 0.25 MG TABLET PO SCH (10:32)
[2019-07-13] MEDS: POTASSIUM CHLORIDE 10 MEQ TABLET.ER PO SCH ×2 (10:32→21:10)
[2019-07-13] MEDS: MULTIVITAMIN TABLET PO SCH (10:33)
[2019-07-13] MEDS: CEFEPIME 1 GM/D5W RTU 1 GM/50 ML RTUPB IV SCH (10:34)
[2019-07-13 12:16] LABS: ARTERIAL BLOOD BASE EXCESS 3.6 mmol/L; ARTERIAL BLOOD H2CO3 1.32 mmol/L (1.05-1.35); ARTERIAL BLOOD HCO3 28.4 mmol/L (20-24); ARTERIAL BLOOD O2 SATURATION 96.7 % (94-98); ARTERIAL BLOOD PH 7.43 (7.35-7.45); ARTERIAL BLOOD PO2 86.2 mmHg (80-100); ARTERIAL BLOOD TOTAL CO2 29.7 mmol/L (21-25)
[2019-07-13 12:19] LABS: ARTERIAL BLOOD FIO2 2L
--- NOTE | 2019-07-13 15:25 | PDOC PROGRESS REPORT ---
Subjective Progress Note for:: 07/13/19 Subjective:: The patient is a 63-year-old female with a past medical history of non-STEMI, COPD, anemia, opiate dependent chronic pain, polypharmacy, depression, and substance abuse who was admitted 06/06/2019 to the ICU for septic shock secondary to community-acquired pneumonia. Now with persistent upper lobe obstructive PNA with respiratory failure w/ hypoxia. Patient was seen on morning rounds. She was found resting in bed, comfortably, on supplemental oxygen via nasal cannula at 2 L/min. She is not home O2 dependent. She has not used BiPAP >24 hours. She is A&Ox4. She reports increased cough and sputum production today. However, feels much better than yesterday and expresses optimism that she is "finally getting well." She denies fever, chills, chest pain, dyspnea, orthopnea, abdominal pain, nausea and vomiting. She has no questions or concerns at this time. No concerns per nursing. Reason For Visit: PNA,SEPTIC SHOCK Physical Exam Vital Signs: Temp Pulse Resp BP Pulse Ox 98.1 F 93 18 124/72 95 07/13/19 11:18 07/13/19 11:55 07/13/19 11:55 07/13/19 11:18 07/13/19 11:55 Intake & Output 07/12/19 07/13/19 07/14/19 06:59 06:59 06:59 Intake Total 1270 1282 717 Output Total 1250 925 Balance 20 357 717 Weight 61.8 kg 60.9 kg 60.9 kg General appearance: PRESENT: no acute distress, cooperative, well-developed, well-nourished Head exam: PRESENT: atraumatic, normocephalic Eye exam: PRESENT: conjunctiva pink, EOMI, PERRLA. ABSENT: scleral icterus Ear exam: PRESENT: normal external ear exam Mouth exam: PRESENT: moist, tongue midline Neck exam: ABSENT: carotid bruit, JVD, lymphadenopathy, thyromegaly Respiratory exam: PRESENT: clear to auscultation astrid, decreased breath sounds - Right lung read, prolonged expiratory phas, rhonchi, symmetrical, unlabored, other - Supplemental oxygen via nasal cannula. Overall improved from previous. ABSENT: rales, wheezes Cardiovascular exam: PRESENT: RRR. ABSENT: diastolic murmur, rubs, systolic murmur Pulses: PRESENT: normal dorsalis pedis pul Vascular exam: PRESENT: normal capillary refill GI/Abdominal exam: PRESENT: normal bowel sounds, soft. ABSENT: distended, guarding, mass, organolmegaly, rebound, tenderness Rectal exam: PRESENT: deferred Extremities exam: PRESENT: full ROM. ABSENT: calf tenderness, clubbing, pedal edema Neurological exam: PRESENT: alert, awake, oriented to person, oriented to place, oriented to time, oriented to situation, CN II-XII grossly intact. ABSENT: motor sensory deficit Psychiatric exam: PRESENT: appropriate affect, normal mood. ABSENT: homicidal ideation, suicidal ideation Skin exam: PRESENT: dry, intact, warm. ABSENT: cyanosis, rash Results Laboratory Results: 07/11/19 05:43 07/09/19 13:47 07/13/19 12:00 Carbonic Acid 1.32 HCO3/H2CO3 Ratio 21:1 ABG pH 7.43 ABG pCO2 44.0 ABG pO2 86.2 ABG HCO3 28.4 H ABG O2 Saturation 96.7 ABG Base Excess 3.6 FiO2 2L 06/05/19 06/05/19 06/08/19 21:52 22:51 01:10 Creatine Kinase Cancelled CK-MB (CK-2) Troponin I Cancelled < 0.012 NT-Pro-B Natriuret Pep Cancelled [id number] H 06/08/19 06/08/19 06/14/19 01:10 02:00 04:40 Creatine Kinase < 20 L < 20 L CK-MB (CK-2) 1.21 Troponin I 0.032 NT-Pro-B Natriuret Pep [id number] H 06/14/19 04:40 Creatine Kinase CK-MB (CK-2) < 0.22 Troponin I < 0.012 NT-Pro-B Natriuret Pep Impressions: KUB X-Ray 06/06/19 00:00 IMPRESSION: Nasogastric tube in the gastric body Femoral line in place on the right Abdomen/Pelvis CT 06/10/19 00:00 IMPRESSION: 1. Extensive lung findings as above. When compared to 06/06/2019, right pleural effusion is slightly progressive and there is a new small left pleural effusion. Consolidation in the right lung has improved. Progressive interstitial infiltrate in the right upper lobe with new patchy interstitial infiltrate in the left upper lobe. 2. Other findings as above, stable. IMPRESSION: 1. Limited abdominal valuation given noncontrast technique, motion and external source artifacts as described. 2. Ascites. No overt bowel or urinary obstruction. 3. Generalized soft tissue edema/anasarca. Head CT 06/11/19 00:00 IMPRESSION: 1. No acute intracranial findings. Head MRI 06/24/19 00:00 IMPRESSION: 1. Chronic brain changes, small vessel disease and mild atrophy. No recent CVA or acute intracranial abnormality allowing for bilateral mastoid disease. EVIDENCE OF ACUTE STROKE: NO. Fluoroscopy 07/04/19 00:00 IMPRESSION: IMAGE(S) OBTAINED DURING PROCEDURE. Thoracentesis Ultrasound 07/06/19 00:00 IMPRESSION: SUCCESSFUL PLACEMENT OF A RIGHT SIDED CHEST TUBE USING ULTRASOUND GUIDANCE. Chest CT 07/11/19 08:00 IMPRESSION: 1. Persistent dense consolidation within the right upper lobe. Patchy right middle and lower lobe consolidation with improved aeration from prior. Findings likely represent combination of atelectasis and airspace disease. 2. Decreased size of the right-sided pleural effusion with small bore chest tube in place. Persistent moderate posterior hydropneumothorax. 3. Trace left effusion. Chest X-Ray 07/12/19 00:00 IMPRESSION: Improving. Persistent marked consolidation and volume loss right upper lobe. Assessment and Plan - Diagnosis (1) Pneumonia due to Escherichia coli Qualifiers: Laterality: right Lung location: upper lobe of lung Qualified Code(s): J15.5 - Pneumonia due to Escherichia coli Is this a current diagnosis for this admission?: Yes Plan: Finally improving; oxygen has been weaned to 2 L/min, no longer requiring BiPAP. Remains afebrile. White count elevated but stable at 12 due to steroid therapy. Improved assessment and clinical appearance. Received full course of meropenem. Continues to have a persistent right upper lobe obstructive pattern. Chest CT (07/11/2019) persistent dense consolidation to the right upper lobe with patchy right middle and lower lobe consolidation. RML and RLL are slightly improved from prior. Represents atelectasis and airspace disease. There is decreased right-sided effusion but persistent moderate posterior hydropneumothorax. CXR (07/12/19) Improving. Persistent marked consolidation and volume loss RUL ABG demonstrates compensated metabolic alkalosis Discussed with Dr. Olmedo, [facility] pulmonology regarding Dr. Guthrie's recommendation for transfer for navigational bronchoscopy. Dr. Olmedo reviewed all of her images. He suggests that this is likely a mucous plug or perhaps blood clot as the right upper lobe obstruction appeared to occur quite rapidly on or about June 25 and cytology thus far are negative. He recommends aggressive pulmonary toilet and repeat chest CT imaging. At this time, he does not feel that navigational bronchoscopy would be of benefit but is available should the patient worsen or if we have further questions. He also recommends considering steroid therapy as Dr. Guthrie's operative note suggests inflammation. We will discontinue IV cefepime today. Continues on supplemental oxygen as needed to maintain saturations greater than 89%; have asked nursing to wean Continues scheduled and as needed nebulizer treatments. We will resume twice daily Mucomyst therapy. Continue IV Solu-Medrol. Continue Mucinex. Continue aggressive pulmonary toilet. (2) Acute respiratory failure with hypoxia Is this a current diagnosis for this admission?: Yes Plan: Significantly improved; secondary to pneumonia. Continues to require nasal cannula 2 L/min and no longer requiring BiPAP Have asked nursing to wean supplemental oxygen; keep SPO2 greater than 90% Remaining evaluation management as above. (3) Pleural effusion Is this a current diagnosis for this admission?: Yes Plan: Secondary to #1. Chest tube in place Will ask Surgery to assist; believe tube may be ready for removal Effusion appears to be transudative, cultures negative, cytology negative. Surgery is consulted for management; appreciate their assistance. (4) Leukocytosis Qualifiers: Leukocytosis type: unspecified Qualified Code(s): D72.829 - Elevated white blood cell count, unspecified Is this a current diagnosis for this admission?: Yes Plan: Gradual downward trend. Now on steroid therapy. Patient was admitted 06/05/2019 with WBC 4.1. Peaked on 06/11 at 37.5. Has vacillated but overall continue to trend down since that time. Today white count is 12.1 Afebrile >48 hrs Patient has multiple negative blood, bronchial washing, pleural fluid, and sputum cultures that have resulted negative with last positive cultures on 06/06/2019. She did receive appropriate IV meropenem therapy (x3 weeks) for her E. coli pneumonia and bacteremia at that time. Completed an additional 5 days of Cefepime (07/09-1/31). Anticipate increased WBCs secondary to start of IV Solu-Medrol. (5) Anemia Qualifiers: Anemia type: iron deficiency Iron deficiency anemia type: chronic blood loss Qualified Code(s): D50.0 - Iron deficiency anemia secondary to blood loss (chronic) Is this a current diagnosis for this admission?: Yes Plan: Stable. Continue to monitor. (6) Urinary retention Is this a current diagnosis for this admission?: Yes Plan: Rojo cath in place. (7) Acute kidney injury (KATHLEEN) with acute tubular necrosis (ATN) Is this a current diagnosis for this admission?: Yes Plan: Resolved (8) Dehydration Is this a current diagnosis for this admission?: Yes Plan: Resolved (9) Thrombocytopenia Is this a current diagnosis for this admission?: Yes Plan: Resolved (10) Acute metabolic encephalopathy Is this a current diagnosis for this admission?: Yes Plan: Resolved (11) Diarrhea Qualifiers: Diarrhea type: unspecified type Qualified Code(s): R19.7 - Diarrhea, unspecified Is this a current diagnosis for this admission?: Yes Plan: Resolved (12) Sepsis with acute organ dysfunction and septic shock Qualifiers: Sepsis type: Escherichia coli Severe sepsis acute organ dysfunction type: acute renal failure Acute renal failure type: with acute tubular necrosis Qualified Code(s): A41.51 - Sepsis due to Escherichia coli [E. coli]; R65.21 - Severe sepsis with septic shock; N17.0 - Acute kidney failure with tubular necrosis Is this a current diagnosis for this admission?: Yes Plan: Treated and resolved (13) Hypo-osmolar hyponatremia Is this a current diagnosis for this admission?: Yes Plan: Serum sodium is currently normal. Continue to monitor. (14) E coli bacteremia Is this a current diagnosis for this admission?: Yes Plan: Treated and resolved (15) Debility Is this a current diagnosis for this admission?: Yes Plan: We will need to strongly encourage increased activity Physical therapy consulted. (16) Constipation Qualifiers: Constipation type: unspecified constipation type Qualified Code(s): K59.00 - Constipation, unspecified Is this a current diagnosis for this admission?: Yes Plan: Resolved. Continue stool softeners. - Time Time Spent with patient: 35 or more minutes Medications reviewed and adjusted accordingly: Yes Anticipated discharge: SNF Within: within 72 hours
[2019-07-13] MEDS: DILTIAZEM HCL 30 MG TABLET PO SCH ×2 (15:35→19:39)
[2019-07-13] MEDS: CITALOPRAM HYDROBROMIDE 20 MG TABLET PO SCH (21:15)
[2019-07-14] MEDS: METHYLPREDNISOLONE INJ 125 MG/2 ML SDV IV SCH (06:14)
[2019-07-14] MEDS: HEPARIN SOD (PORCINE) 5,000 UNIT/ML 1 ML VIAL SUBCUT SCH ×3 (06:15→21:16)
[2019-07-14] MEDS: HYDROCODONE/ACETAMINOPHEN 10-325 MG TABLET PO PRN ×3 (06:15→21:16)
[2019-07-14 06:32] LABS: ANION GAP 9 (5-19); BLOOD UREA NITROGEN 27 mg/dL (7-20); CALCIUM 9.9 mg/dL (8.4-10.2); CARBON DIOXIDE 27 mmol/L (22-30); CHLORIDE 102 mmol/L (98-107); GLUCOSE 143 mg/dL (75-110); POTASSIUM 4.4 mmol/L (3.6-5.0)
[2019-07-14 06:49] LABS: HEMOGLOBIN 8.8 g/dL (12.0-15.5); MEAN CORPUSCULAR HEMOGLOBIN 27.9 pg (27.0-33.4); MEAN CORPUSCULAR HGB CONC 32.4 g/dL (32.0-36.0); MEAN CORPUSCULAR VOLUME 86 fl (80-97); PLATELET COUNT 575 10^3/uL (150-450); RED BLOOD COUNT 3.14 10^6/uL (3.72-5.28); RED CELL DISTRIBUTION WIDTH 16.7 % (11.5-14.0); WHITE BLOOD COUNT 21.8 10^3/uL (4.0-10.5)
[2019-07-14] MEDS: FERROUS SULFATE 325 MG TABLET PO SCH ×2 (08:02→18:13)
[2019-07-14] MEDS: ACETYLCYSTEINE 20% SOLN 800 MG/4 ML VIAL.NEB NEB SCH ×2 (08:46→20:48)
[2019-07-14] MEDS: IPRATROPIUM/ALBUTEROL 0.5-2.5 MG/3 ML AMPUL NEB SCH ×4 (08:46→20:48)
[2019-07-14] MEDS: POTASSIUM CHLORIDE 10 MEQ TABLET.ER PO SCH ×2 (09:45→21:30)
[2019-07-14] MEDS: DOCUSATE SODIUM 100 MG CAPSULE PO SCH ×2 (09:52→18:11)
[2019-07-14] MEDS: DILTIAZEM HCL 30 MG TABLET PO SCH ×2 (09:53→18:13)
[2019-07-14] MEDS: GUAIFENESIN 600 MG TABLET.SA PO SCH ×2 (09:53→21:16)
[2019-07-14] MEDS: GABAPENTIN 300 MG CAPSULE PO SCH ×2 (09:53→21:16)
[2019-07-14] MEDS: POLYETHYLENE GLYCOL 3350 POWDER 17 GM/1 PACKET PO SCH (09:53)
[2019-07-14] MEDS: MULTIVITAMIN TABLET PO SCH (09:53)
--- NOTE | 2019-07-14 11:04 | RADIOLOGY REPORT (SQ) ---
EXAM DESCRIPTION: CHEST SINGLE VIEW COMPLETED DATE/TIME: 07/14/2019 10:23 am REASON FOR STUDY: dyspnea, hypoxia, s/p chest tube removal COMPARISON: 07/09/2019 to 07/12/2019 EXAM PARAMETERS: NUMBER OF VIEWS: One view. TECHNIQUE: Single frontal radiographic view of the chest acquired. RADIATION DOSE: NA LIMITATIONS: None. FINDINGS: LUNGS AND PLEURA: Gradual improvement in aeration of the right lung and decreased in densi ty in the right apex. Significant clearing of the right base. Left lung is clear. MEDIASTINUM AND HILAR STRUCTURES: No masses. Contour normal. HEART AND VASCULAR STRUCTURES: Heart normal in size. Normal vasculature. BONES: No acute findings. HARDWARE: None in the chest. OTHER: No other significant finding. IMPRESSION: Generalize gradual improvement but there is persistent significant abnormality in the ri ght upper lobe. TECHNICAL DOCUMENTATION: JOB ID: [id number] [employer]- All Rights Reserved Reading location - IP/workstation name: [email or web address]
--- NOTE | 2019-07-14 12:41 | PDOC PROGRESS REPORT ---
Subjective Progress Note for:: 07/14/19 Subjective:: The patient is a 63-year-old female with a past medical history of non-STEMI, COPD, anemia, opiate dependent chronic pain, polypharmacy, depression, and substance abuse who was admitted 06/06/2019 to the ICU for septic shock secondary to community-acquired pneumonia. Now with persistent upper lobe obstructive PNA with respiratory failure w/ hypoxia. Patient was seen on morning rounds. She was found resting in bed, comfortably, on supplemental oxygen via nasal cannula at 1 L/min. She is not home O2 dependent. She has not used BiPAP >48 hours. She is A&Ox4. She reports decreased dyspnea and cough today. Overall, feeling much better. She denies fever, chills, chest pain, dyspnea, orthopnea, abdominal pain, nausea and vomiting. She has no questions or concerns at this time. No concerns per nursing. Reason For Visit: PNA,SEPTIC SHOCK Physical Exam Vital Signs: Temp Pulse Resp BP Pulse Ox 97.9 F 98 18 144/81 H 84 L 07/14/19 08:00 07/14/19 08:48 07/14/19 08:48 07/14/19 08:00 07/14/19 10:00 Intake & Output 07/13/19 07/14/19 07/15/19 06:59 06:59 06:59 Intake Total 1282 1407 Output Total 925 800 Balance 357 607 Weight 60.9 kg 60.9 kg General appearance: PRESENT: no acute distress, cooperative, thin, well- developed, well-nourished Head exam: PRESENT: atraumatic, normocephalic Eye exam: PRESENT: conjunctiva pink, EOMI, PERRLA. ABSENT: scleral icterus Ear exam: PRESENT: normal external ear exam Mouth exam: PRESENT: moist, tongue midline Neck exam: ABSENT: carotid bruit, JVD, lymphadenopathy, thyromegaly Respiratory exam: PRESENT: decreased breath sounds - Improved lung sounds right upper lobe, rhonchi, symmetrical, unlabored, other - Supplemental oxygen via nasal cannula.. ABSENT: rales, wheezes Cardiovascular exam: PRESENT: RRR, +S1, +S2. ABSENT: diastolic murmur, rubs, systolic murmur Pulses: PRESENT: normal dorsalis pedis pul Vascular exam: PRESENT: normal capillary refill GI/Abdominal exam: PRESENT: normal bowel sounds, soft. ABSENT: distended, guarding, mass, organolmegaly, rebound, tenderness Rectal exam: PRESENT: deferred Gentrourinary exam: PRESENT: indwelling catheter Extremities exam: PRESENT: full ROM. ABSENT: calf tenderness, clubbing, pedal edema Neurological exam: PRESENT: alert, awake, oriented to person, oriented to place, oriented to time, oriented to situation, CN II-XII grossly intact. ABSENT: motor sensory deficit Psychiatric exam: PRESENT: appropriate affect, normal mood. ABSENT: homicidal ideation, suicidal ideation Skin exam: PRESENT: dry, intact, warm. ABSENT: cyanosis, rash Results Laboratory Results: 07/14/19 05:28 07/14/19 05:28 07/14/19 07/14/19 05:28 05:28 WBC 21.8 H RBC 3.14 L Hgb 8.8 L Hct 27.0 L MCV 86 MCH 27.9 MCHC 32.4 RDW 16.7 H Plt Count 575 H Sodium 138.0 Potassium 4.4 Chloride 102 Carbon Dioxide 27 Anion Gap 9 BUN 27 H Creatinine 0.69 Est GFR ( Amer) > 60 Glucose 143 H Calcium 9.9 06/05/19 06/05/19 06/08/19 21:52 22:51 01:10 Creatine Kinase Cancelled CK-MB (CK-2) Troponin I Cancelled < 0.012 NT-Pro-B Natriuret Pep Cancelled [id number] H 06/08/19 06/08/19 06/14/19 01:10 02:00 04:40 Creatine Kinase < 20 L < 20 L CK-MB (CK-2) 1.21 Troponin I 0.032 NT-Pro-B Natriuret Pep [id number] H 06/14/19 04:40 Creatine Kinase CK-MB (CK-2) < 0.22 Troponin I < 0.012 NT-Pro-B Natriuret Pep Impressions: KUB X-Ray 06/06/19 00:00 IMPRESSION: Nasogastric tube in the gastric body Femoral line in place on the right Abdomen/Pelvis CT 06/10/19 00:00 IMPRESSION: 1. Extensive lung findings as above. When compared to 06/06/2019, right pleural effusion is slightly progressive and there is a new small left pleural effusion. Consolidation in the right lung has improved. Progressive interstitial infiltrate in the right upper lobe with new patchy interstitial infiltrate in the left upper lobe. 2. Other findings as above, stable. IMPRESSION: 1. Limited abdominal valuation given noncontrast technique, motion and external source artifacts as described. 2. Ascites. No overt bowel or urinary obstruction. 3. Generalized soft tissue edema/anasarca. Head CT 06/11/19 00:00 IMPRESSION: 1. No acute intracranial findings. Head MRI 06/24/19 00:00 IMPRESSION: 1. Chronic brain changes, small vessel disease and mild atrophy. No recent CVA or acute intracranial abnormality allowing for bilateral mastoid disease. EVIDENCE OF ACUTE STROKE: NO. Fluoroscopy 07/04/19 00:00 IMPRESSION: IMAGE(S) OBTAINED DURING PROCEDURE. Thoracentesis Ultrasound 07/06/19 00:00 IMPRESSION: SUCCESSFUL PLACEMENT OF A RIGHT SIDED CHEST TUBE USING ULTRASOUND GUIDANCE. Chest CT 07/11/19 08:00 IMPRESSION: 1. Persistent dense consolidation within the right upper lobe. Patchy right middle and lower lobe consolidation with improved aeration from prior. Findings likely represent combination of atelectasis and airspace disease. 2. Decreased size of the right-sided pleural effusion with small bore chest tube in place. Persistent moderate posterior hydropneumothorax. 3. Trace left effusion. Chest X-Ray 07/14/19 00:00 IMPRESSION: Generalize gradual improvement but there is persistent significant abnormality in the right upper lobe. Assessment and Plan - Diagnosis (1) Pneumonia due to Escherichia coli Qualifiers: Laterality: right Lung location: upper lobe of lung Qualified Code(s): J15.5 - Pneumonia due to Escherichia coli Is this a current diagnosis for this admission?: Yes Plan: Finally improving; oxygen has been weaned to 2 L/min, no longer requiring BiPAP. Remains afebrile. White count elevated due to steroid therapy. Improved assessment and clinical appearance. Received full course of meropenem. Continues to have a persistent right upper lobe obstructive pattern. Chest CT (07/11/2019) persistent dense consolidation to the right upper lobe with patchy right middle and lower lobe consolidation. RML and RLL are slightly improved from prior. Represents atelectasis and airspace disease. There is decreased right-sided effusion but persistent moderate posterior hydropneumothorax. CXR (07/12/19) Improving. Persistent marked consolidation and volume loss RUL ABG demonstrates compensated metabolic alkalosis CXR (07/14/2019) continued improvement Discussed with Dr. Olmedo, [facility] regarding Dr. Guthrie's recom mendation for transfer for navigational bronchoscopy. Dr. Olmedo reviewed all of her images. He suggests that this is likely a mucous plug or perhaps blood clot as the right upper lobe obstruction appeared to occur quite rapidly on or about June 25 and cytology thus far are negative. He recommends aggressive pulmonary toilet and repeat chest CT imaging. At this time, he does not feel that navigational bronchoscopy would be of benefit but is available should the patient worsen or if we have further questions. He also recommends considering steroid therapy as Dr. Guthrie's operative note suggests inflammation. IV cefepime discontinued after 5 days of therapy. Continues on supplemental oxygen as needed to maintain saturations greater than 89%; have asked nursing to wean Continues scheduled and as needed nebulizer treatments. We will resume twice daily Mucomyst therapy. Continue IV Solu-Medrol; have decreased dose. Continue Mucinex. Continue aggressive pulmonary toilet. (2) Acute respiratory failure with hypoxia Is this a current diagnosis for this admission?: Yes Plan: Significantly improved; secondary to pneumonia. Have asked nursing to wean supplemental oxygen; keep SPO2 greater than 90% Remaining evaluation management as above. (3) Pleural effusion Is this a current diagnosis for this admission?: Yes Plan: Secondary to #1. Effusion appears to be transudative, cultures negative, cytology negative. Discussed with Dr. Trinh; no output x3 days. Chest x-ray stable. Chest tube removed today. (4) Leukocytosis Qualifiers: Leukocytosis type: unspecified Qualified Code(s): D72.829 - Elevated white blood cell count, unspecified Is this a current diagnosis for this admission?: Yes Plan: Gradual downward trend. Now on steroid therapy. Patient was admitted 06/05/2019 with WBC 4.1. Peaked on 06/11 at 37.5. Has vacillated but overall continue to trend down since that time. Today white count is 21.8 secondary to IV Solu-Medrol. Afebrile >48 hrs Patient has multiple negative blood, bronchial washing, pleural fluid, and sputum cultures that have resulted negative with last positive cultures on . She did receive appropriate IV meropenem therapy (x3 weeks) for her E. coli pneumonia and bacteremia at that time. Completed an additional 5 days of Cefepime (07/09-07/13). Anticipate increased WBCs secondary to start of IV Solu-Medrol. (5) Anemia Qualifiers: Anemia type: iron deficiency Iron deficiency anemia type: chronic blood loss Qualified Code(s): D50.0 - Iron deficiency anemia secondary to blood loss (chronic) Is this a current diagnosis for this admission?: Yes Plan: Stable. Continue to monitor. (6) Urinary retention Is this a current diagnosis for this admission?: Yes Plan: We will discontinue Rojo. Straight cath every 6 hours as needed (7) Acute kidney injury (KATHLEEN) with acute tubular necrosis (ATN) Is this a current diagnosis for this admission?: Yes Plan: Resolved (8) Dehydration Is this a current diagnosis for this admission?: Yes Plan: Resolved (9) Thrombocytopenia Is this a current diagnosis for this admission?: Yes Plan: Resolved (10) Acute metabolic encephalopathy Is this a current diagnosis for this admission?: Yes Plan: Resolved (11) Diarrhea Qualifiers: Diarrhea type: unspecified type Qualified Code(s): R19.7 - Diarrhea, unspecified Is this a current diagnosis for this admission?: Yes Plan: Resolved (12) Sepsis with acute organ dysfunction and septic shock Qualifiers: Sepsis type: Escherichia coli Severe sepsis acute organ dysfunction type: acute renal failure Acute renal failure type: with acute tubular necrosis Qualified Code(s): A41.51 - Sepsis due to Escherichia coli [E. coli]; R65.21 - S evere sepsis with septic shock; N17.0 - Acute kidney failure with tubular necrosis Is this a current diagnosis for this admission?: Yes Plan: Treated and resolved (13) Hypo-osmolar hyponatremia Is this a current diagnosis for this admission?: Yes Plan: Serum sodium is currently normal. Continue to monitor. (14) E coli bacteremia Is this a current diagnosis for this admission?: Yes Plan: Treated and resolved (15) Debility Is this a current diagnosis for this admission?: Yes Plan: We will need to strongly encourage increased activity Physical therapy consulted. (16) Constipation Qualifiers: Constipation type: unspecified constipation type Qualified Code(s): K59.00 - Constipation, unspecified Is this a current diagnosis for this admission?: Yes Plan: Resolved. Continue stool softeners. - Time Time Spent with patient: 25-34 minutes Medications reviewed and adjusted accordingly: Yes Anticipated discharge: SNF Within: within 72 hours
[2019-07-14] MEDS ORDERED: METHYLPREDNISOLONE INJ 125 MG/2 ML SDV IV SCH (14:00)
[2019-07-14] MEDS: METHYLPREDNISOLONE INJ 40 MG/1 ML SDV IV SCH ×2 (14:07→21:16)
[2019-07-14] MEDS: CITALOPRAM HYDROBROMIDE 20 MG TABLET PO SCH (21:16)
[2019-07-15] MEDS: HYDROCODONE/ACETAMINOPHEN 10-325 MG TABLET PO PRN ×3 (05:59→21:20)
[2019-07-15] MEDS: HEPARIN SOD (PORCINE) 5,000 UNIT/ML 1 ML VIAL SUBCUT SCH ×3 (06:00→21:15)
[2019-07-15] MEDS: METHYLPREDNISOLONE INJ 40 MG/1 ML SDV IV SCH ×3 (06:00→21:15)
[2019-07-15] MEDS: IPRATROPIUM/ALBUTEROL 0.5-2.5 MG/3 ML AMPUL NEB SCH ×3 (08:49→20:20)
[2019-07-15] MEDS: ACETYLCYSTEINE 20% SOLN 800 MG/4 ML VIAL.NEB NEB SCH ×2 (08:49→20:20)
[2019-07-15] MEDS: POLYETHYLENE GLYCOL 3350 POWDER 17 GM/1 PACKET PO SCH (10:31)
[2019-07-15] MEDS: POTASSIUM CHLORIDE 10 MEQ TABLET.ER PO SCH ×2 (10:31→21:15)
[2019-07-15] MEDS: FERROUS SULFATE 325 MG TABLET PO SCH ×2 (10:31→18:05)
[2019-07-15] MEDS: GABAPENTIN 300 MG CAPSULE PO SCH ×2 (10:31→21:15)
[2019-07-15] MEDS: DILTIAZEM HCL 30 MG TABLET PO SCH ×2 (10:32→18:04)
[2019-07-15] MEDS: MULTIVITAMIN TABLET PO SCH (10:32)
[2019-07-15] MEDS: DOCUSATE SODIUM 100 MG CAPSULE PO SCH ×3 (10:32→18:05)
[2019-07-15] MEDS: GUAIFENESIN 600 MG TABLET.SA PO SCH ×2 (10:39→21:15)
--- NOTE | 2019-07-15 14:50 | PDOC PROGRESS REPORT ---
Subjective Progress Note for:: 07/15/19 Subjective:: The patient is a 63-year-old female with a past medical history of non-STEMI, COPD, anemia, opiate dependent chronic pain, polypharmacy, depression, and substance abuse who was admitted 06/06/2019 to the ICU for septic shock secondary to community-acquired pneumonia. Now with persistent upper lobe obstructive PNA with respiratory failure w/ hypoxia. Patient was seen on morning rounds. She was found resting in bed, comfortably, on room air. She has not used BiPAP >72 hours. She is A&Ox4. She reports decreased dyspnea and cough today. Overall, feeling much better. Pleased to have smith and chest tube removed. She is looking forward to d/c to SNF for rehab in the near future. She denies fever, chills, chest pain, dyspnea, orthopnea, abdominal pain, nausea and vomiting. She has no questions or concerns at this time. No concerns per nursing. Reason For Visit: PNA,SEPTIC SHOCK Physical Exam Vital Signs: Temp Pulse Resp BP Pulse Ox 98.3 F 99 18 137/81 H 92 07/15/19 08:31 07/15/19 12:33 07/15/19 12:33 07/15/19 08:31 07/15/19 12:33 Intake & Output 07/14/19 07/15/19 07/16/19 06:59 06:59 06:59 Intake Total 1407 1860 Output Total 800 600 Balance 607 1260 Weight 60.9 kg 61.1 kg General appearance: PRESENT: no acute distress, cooperative, thin, well- developed, well-nourished Head exam: PRESENT: atraumatic, normocephalic Eye exam: PRESENT: conjunctiva pink, EOMI, PERRLA. ABSENT: scleral icterus Ear exam: PRESENT: normal external ear exam Mouth exam: PRESENT: moist, tongue midline Respiratory exam: PRESENT: rhonchi - throughout, symmetrical, unlabored, other - Improved lung sounds right upper lobe. ABSENT: rales, wheezes Cardiovascular exam: PRESENT: RRR, +S1, +S2. ABSENT: diastolic murmur, rubs, systolic murmur Vascular exam: PRESENT: normal capillary refill Gentrourinary exam: ABSENT: indwelling catheter Extremities exam: PRESENT: full ROM. ABSENT: calf tenderness, clubbing, pedal edema Neurological exam: PRESENT: alert, awake, oriented to person, oriented to place, oriented to time, oriented to situation, CN II-XII grossly intact. ABSENT: motor sensory deficit Psychiatric exam: PRESENT: appropriate affect, normal mood. ABSENT: homicidal ideation, suicidal ideation Skin exam: PRESENT: dry, intact, warm. ABSENT: cyanosis, rash Results Laboratory Results: 07/14/19 05:28 07/14/19 05:28 06/05/19 06/05/19 06/08/19 21:52 22:51 01:10 Creatine Kinase Cancelled CK-MB (CK-2) Troponin I Cancelled < 0.012 NT-Pro-B Natriuret Pep Cancelled [id number] H 06/08/19 06/08/19 06/14/19 01:10 02:00 04:40 Creatine Kinase < 20 L < 20 L CK-MB (CK-2) 1.21 Troponin I 0.032 NT-Pro-B Natriuret Pep [id number] H 06/14/19 04:40 Creatine Kinase CK-MB (CK-2) < 0.22 Troponin I < 0.012 NT-Pro-B Natriuret Pep Impressions: KUB X-Ray 06/06/19 00:00 IMPRESSION: Nasogastric tube in the gastric body Femoral line in place on the right Abdomen/Pelvis CT 06/10/19 00:00 IMPRESSION: 1. Extensive lung findings as above. When compared to 06/06/2019, right pleural effusion is slightly progressive and there is a new small left pleural effusion. Consolidation in the right lung has improved. Progressive interstitial infil trate in the right upper lobe with new patchy interstitial infiltrate in the left upper lobe. 2. Other findings as above, stable. IMPRESSION: 1. Limited abdominal valuation given noncontrast technique, motion and external source artifacts as described. 2. Ascites. No overt bowel or urinary obstruction. 3. Generalized soft tissue edema/anasarca. Head CT 06/11/19 00:00 IMPRESSION: 1. No acute intracranial findings. Head MRI 06/24/19 00:00 IMPRESSION: 1. Chronic brain changes, small vessel disease and mild atrophy. No recent CVA or acute intracranial abnormality allowing for bilateral mastoid disease. EVIDENCE OF ACUTE STROKE: NO. Fluoroscopy 07/04/19 00:00 IMPRESSION: IMAGE(S) OBTAINED DURING PROCEDURE. Thoracentesis Ultrasound 07/06/19 00:00 IMPRESSION: SUCCESSFUL PLACEMENT OF A RIGHT SIDED CHEST TUBE USING ULTRASOUND GUIDANCE. Chest CT 07/11/19 08:00 IMPRESSION: 1. Persistent dense consolidation within the right upper lobe. Patchy right middle and lower lobe consolidation with improved aeration from prior. Findings likely represent combination of atelectasis and airspace disease. 2. Decreased size of the right-sided pleural effusion with small bore chest tube in place. Persistent moderate posterior hydropneumothorax. 3. Trace left effusion. Chest X-Ray 07/14/19 00:00 IMPRESSION: Generalize gradual improvement but there is persistent significant abnormality in the right upper lobe. Assessment and Plan - Diagnosis (1) Pneumonia due to Escherichia coli Qualifiers: Laterality: right Lung location: upper lobe of lung Qualified Code(s): J15.5 - Pneumonia due to Escherichia coli Is this a current diagnosis for this admission?: Yes Plan: Continues to improve; no longer oxygen dependent or requiring BiPAP. Remains afebrile. White count elevated due to steroid therapy. Received full course of meropenem. Received Cefepime x5 days. Chest CT (07/11/2019) persistent dense consolidation to the right upper lobe with patchy right middle and lower lobe consolidation. RML and RLL are slightly improved from prior. Represents atelectasis and airspace disease. There is decreased right-sided effusion but persistent moderate posterior hydropneumothorax. CXR (07/12/19) Improving. Persistent marked consolidation and volume loss RUL ABG demonstrates compensated metabolic alkalosis CXR (07/14/2019) continued improvement Discussed with Dr. Olmedo, [facility] pulmonology regarding Dr. Guthrie's recommendation for transfer for navigational bronchoscopy. Dr. Olmedo reviewed all of her images. He suggests that this is likely a mucous plug or perhaps blood clot as the right upper lobe obstruction appeared to occur quite rapidly on or about June 25 and cytology thus far are negative. He recommends aggressive pulmonary toilet and repeat chest CT imaging. At this time, he does not feel that navigational bronchoscopy would be of benefit but is available should the patient worsen or if we have further questions. He also recommends considering steroid therapy as Dr. Guthrie's operative note suggests inflammation. Continues on supplemental oxygen as needed to maintain saturations greater than 89%; have asked nursing to wean Continues scheduled and as needed nebulizer treatments. Will decrease frequency of scheduled nebs. Continue twice daily Mucomyst therapy. Continue IV Solu-Medrol; continue weaning Continue Mucinex. Continue aggressive pulmonary toilet. (2) Acute respiratory failure with hypoxia Is this a current diagnosis for this admission?: Yes Plan: Significantly improved; secondary to pneumonia. Have asked nursing to wean supplemental oxygen; keep SPO2 greater than 90% Remaining evaluation and management as above. (3) Pleural effusion Is this a current diagnosis for this admission?: Yes Plan: Secondary to #1. Effusion appears to be transudative, cultures negative, cytology negative. Discussed with Dr. Trinh; no output x3 days. Chest x-ray stable. Chest tube removed 07/14/19 (4) Leukocytosis Qualifiers: Leukocytosis type: unspecified Qualified Code(s): D72.829 - Elevated white blood cell count, unspecified Is this a current diagnosis for this admission?: Yes Plan: Gradual downward trend. Now on steroid therapy. Patient was admitted 06/05/2019 with WBC 4.1. Peaked on 06/11 at 37.5. Has vacillated but overall continue to trend down since that time. Today white count is 21.8 secondary to IV Solu-Medrol. Afebrile >72 hrs Patient has multiple negative blood, bronchial washing, pleural fluid, and sputum cultures that have resulted negative with last positive cultures on 06/06/2019. She did receive appropriate IV meropenem therapy (x3 weeks) for her E. coli pneumonia and bacteremia at that time. Completed an additional 5 days of Cefepime (07/09-07/13). Anticipate increased WBCs secondary to start of IV Solu-Medrol. (5) Anemia Qualifiers: Anemia type: iron deficiency Iron deficiency anemia type: chronic blood loss Qualified Code(s): D50.0 - Iron deficiency anemia secondary to blood loss (chronic) Is this a current diagnosis for this admission?: Yes Plan: Stable. Continue to monitor. (6) Urinary retention Is this a current diagnosis for this admission?: Yes Plan: Resolved. Have discontinued Smith. Straight cath every 6 hours as needed (7) Acute kidney injury (KATHLEEN) with acute tubular necrosis (ATN) Is this a current diagnosis for this admission?: Yes Plan: Resolved (8) Dehydration Is this a current diagnosis for this admission?: Yes Plan: Resolved (9) Thrombocytopenia Is this a current diagnosis for this admission?: Yes Plan: Resolved (10) Acute metabolic encephalopathy Is this a current diagnosis for this admission?: Yes Plan: Resolved (11) Diarrhea Qualifiers: Diarrhea type: unspecified type Qualified Code(s): R19.7 - Diarrhea, unspecified Is this a current diagnosis for this admission?: Yes Plan: Resolved (12) Sepsis with acute organ dysfunction and septic shock Qualifiers: Sepsis type: Escherichia coli Severe sepsis acute organ dysfunction type: acute renal failure Acute renal failure type: with acute tubular necrosis Qualified Code(s): A41.51 - Sepsis due to Escherichia coli [E. coli]; R65.21 - Severe sepsis with septic shock; N17.0 - Acute kidney failure with tubular necrosis Is this a current diagnosis for this admission?: Yes Plan: Treated and resolved (13) Hypo-osmolar hyponatremia Is this a current diagnosis for this admission?: Yes Plan: Serum sodium is currently normal. Continue to monitor. (14) E coli bacteremia Is this a current diagnosis for this admission?: Yes Plan: Treated and resolved (15) Debility Is this a current diagnosis for this admission?: Yes Plan: We will need to strongly encourage increased activity Physical therapy consulted. (16) Constipation Qualifiers: Constipation type: unspecified constipation type Qualified Code(s): K59.00 - Constipation, unspecified Is this a current diagnosis for this admission?: Yes Plan: Resolved. Continue stool softeners. - Time Time Spent with patient: 25-34 minutes Medications reviewed and adjusted accordingly: Yes Anticipated discharge: SNF Within: within 48 hours
[2019-07-15] MEDS ORDERED: IPRATROPIUM/ALBUTEROL 0.5-2.5 MG/3 ML AMPUL NEB SCH (16:00)
[2019-07-15] MEDS ORDERED: ALBUTEROL SULFATE 0.083% NEB 2.5 MG/3 ML AMPUL NEB PRN (16:15)
[2019-07-15] MEDS: CITALOPRAM HYDROBROMIDE 20 MG TABLET PO SCH (21:15)
[2019-07-16] MEDS: HEPARIN SOD (PORCINE) 5,000 UNIT/ML 1 ML VIAL SUBCUT SCH ×3 (05:33→21:46)
[2019-07-16] MEDS: IPRATROPIUM/ALBUTEROL 0.5-2.5 MG/3 ML AMPUL NEB SCH ×2 (08:06→20:35)
[2019-07-16] MEDS: ACETYLCYSTEINE 20% SOLN 800 MG/4 ML VIAL.NEB NEB SCH ×2 (08:06→20:35)
[2019-07-16] MEDS: GUAIFENESIN 600 MG TABLET.SA PO SCH ×2 (09:27→21:46)
[2019-07-16] MEDS: FERROUS SULFATE 325 MG TABLET PO SCH ×2 (09:27→18:04)
[2019-07-16] MEDS: POTASSIUM CHLORIDE 10 MEQ TABLET.ER PO SCH ×2 (09:27→21:46)
[2019-07-16] MEDS: METHYLPREDNISOLONE INJ 40 MG/1 ML SDV IV SCH ×2 (09:27→18:04)
[2019-07-16] MEDS: GABAPENTIN 300 MG CAPSULE PO SCH ×2 (09:27→21:46)
[2019-07-16] MEDS: MULTIVITAMIN TABLET PO SCH (09:27)
[2019-07-16] MEDS: HYDROCODONE/ACETAMINOPHEN 10-325 MG TABLET PO PRN ×2 (09:30→18:04)
[2019-07-16] MEDS: DILTIAZEM HCL 30 MG TABLET PO SCH ×2 (09:30→18:03)
[2019-07-16] MEDS: DOCUSATE SODIUM 100 MG CAPSULE PO SCH ×2 (09:36→17:19)
[2019-07-16] MEDS: POLYETHYLENE GLYCOL 3350 POWDER 17 GM/1 PACKET PO SCH (09:37)
--- NOTE | 2019-07-16 10:53 | RADIOLOGY REPORT (SQ) ---
EXAM DESCRIPTION: CHEST SINGLE VIEW COMPLETED DATE/TIME: 07/16/2019 10:41 am REASON FOR STUDY: follow up RUL PNA COMPARISON: 07/14/2019 EXAM PARAMETERS: NUMBER OF VIEWS: One view. TECHNIQUE: Single frontal radiographic view of the chest acquired. RADIATION DOSE: NA LIMITATIONS: None. FINDINGS: LUNGS AND PLEURA: Persistent dense consolidation within the right upper lobe and patchy ri ght middle lobe opacities, not significant changed from prior. Small right pleural effusion. Unrema rkable left hemithorax. MEDIASTINUM AND HILAR STRUCTURES: No masses. Contour normal. HEART AND VASCULAR STRUCTURES: Heart normal in size. Normal vasculature. BONES: No acute findings. HARDWARE: None in the chest. OTHER: No other significant finding. IMPRESSION: Persistent dense right upper lobe consolidation, not significantly changed from prior. Small right pleural effusion. TECHNICAL DOCUMENTATION: JOB ID: [id number] [employer]- All Rights Reserved Reading location - IP/workstation name: [email or web address]
--- NOTE | 2019-07-16 11:04 | PDOC PROGRESS REPORT ---
Subjective Progress Note for:: 07/16/19 Subjective:: The patient is a 63-year-old female with a past medical history of non-STEMI, COPD, anemia, opiate dependent chronic pain, polypharmacy, depression, and substance abuse who was admitted 06/06/2019 to the ICU for septic shock secondary to community-acquired pneumonia. Now with persistent upper lobe obstructive PNA with respiratory failure w/ hypoxia. Patient was seen on morning rounds. She was found resting in bed, comfortably, on room air. She is A&Ox4. She reports decreased dyspnea, but increased cough with sputum production today. Overall, feeling much better. Also reports anxiety and difficulty sleeping related to possible SNF discharge this week; asks to resume home dose Zanaflex. She denies fever, chills, chest pain, dyspnea, orthopnea, abdominal pain, nausea and vomiting. She has no questions or concerns at this time. No concerns per nursing. Reason For Visit: PNA,SEPTIC SHOCK Physical Exam Vital Signs: Temp Pulse Resp BP Pulse Ox 98.3 F 93 18 150/89 H 95 07/16/19 07:26 07/16/19 08:06 07/16/19 08:06 07/16/19 07:26 07/16/19 08:06 Intake & Output 07/15/19 07/16/19 07/17/19 06:59 06:59 06:59 Intake Total 1860 1055 Output Total 600 700 Balance 1260 355 Weight 61.1 kg 60 kg General appearance: PRESENT: no acute distress, cooperative, thin, well- developed, other - Chronically ill-appearing Head exam: PRESENT: atraumatic, normocephalic Eye exam: PRESENT: conjunctiva pink, EOMI, PERRLA. ABSENT: scleral icterus Ear exam: PRESENT: normal external ear exam Mouth exam: PRESENT: moist, tongue midline Respiratory exam: PRESENT: rhonchi - Throughout; increased from yesterday, symmetrical, unlabored. ABSENT: rales, wheezes Cardiovascular exam: PRESENT: RRR, +S1, +S2. ABSENT: diastolic murmur, rubs, systolic murmur Vascular exam: PRESENT: normal capillary refill Rectal exam: PRESENT: deferred Extremities exam: PRESENT: full ROM. ABSENT: calf tenderness, clubbing, pedal edema Neurological exam: PRESENT: alert, awake, oriented to person, oriented to place, oriented to time, oriented to situation, CN II-XII grossly intact. ABSENT: motor sensory deficit Psychiatric exam: PRESENT: anxious, appropriate affect, normal mood. ABSENT: homicidal ideation, suicidal ideation Skin exam: PRESENT: dry, intact, warm. ABSENT: cyanosis, rash Results Laboratory Results: 07/14/19 05:28 07/14/19 05:28 06/05/19 06/05/19 06/08/19 21:52 22:51 01:10 Creatine Kinase Cancelled CK-MB (CK-2) Troponin I Cancelled < 0.012 NT-Pro-B Natriuret Pep Cancelled [id number] H 06/08/19 06/08/19 06/14/19 01:10 02:00 04:40 Creatine Kinase < 20 L < 20 L CK-MB (CK-2) 1.21 Troponin I 0.032 NT-Pro-B Natriuret Pep [id number] H 06/14/19 04:40 Creatine Kinase CK-MB (CK-2) < 0.22 Troponin I < 0.012 NT-Pro-B Natriuret Pep Impressions: KUB X-Ray 06/06/19 00:00 IMPRESSION: Nasogastric tube in the gastric body Femoral line in place on the right Abdomen/Pelvis CT 06/10/19 00:00 IMPRESSION: 1. Extensive lung findings as above. When compared to 06/06/2019, right pleural effusion is slightly progressive and there is a new small left pleural effusion. Consolidation in the right lung has improved. Progressive interstitial infiltr ate in the right upper lobe with new patchy interstitial infiltrate in the left upper lobe. 2. Other findings as above, stable. IMPRESSION: 1. Limited abdominal valuation given noncontrast technique, motion and external source artifacts as described. 2. Ascites. No overt bowel or urinary obstruction. 3. Generalized soft tissue edema/anasarca. Head CT 06/11/19 00:00 IMPRESSION: 1. No acute intracranial findings. Head MRI 06/24/19 00:00 IMPRESSION: 1. Chronic brain changes, small vessel disease and mild atrophy. No recent CVA or acute intracranial abnormality allowing for bilateral mastoid disease. EVIDENCE OF ACUTE STROKE: NO. Fluoroscopy 07/04/19 00:00 IMPRESSION: IMAGE(S) OBTAINED DURING PROCEDURE. Thoracentesis Ultrasound 07/06/19 00:00 IMPRESSION: SUCCESSFUL PLACEMENT OF A RIGHT SIDED CHEST TUBE USING ULTRASOUND GUIDANCE. Chest CT 07/11/19 08:00 IMPRESSION: 1. Persistent dense consolidation within the right upper lobe. Pa tchy right middle and lower lobe consolidation with improved aeration from prior. Findings likely represent combination of atelectasis and airspace disease. 2. Decreased size of the right-sided pleural effusion with small bore chest tube in place. Persistent moderate posterior hydropneumothorax. 3. Trace left effusion. Assessment and Plan - Diagnosis (1) Pneumonia due to Escherichia coli Qualifiers: Laterality: right Lung location: upper lobe of lung Qualified Code(s): J15.5 - Pneumonia due to Escherichia coli Is this a current diagnosis for this admission?: Yes Plan: Continues to improve; no longer oxygen dependent or requiring BiPAP. Remains afebrile. White count elevated due to steroid therapy. Received full course of meropenem. Received Cefepime x5 days. Chest CT (07/11/2019) persistent dense consolidation to the right upper lobe with patchy right middle and lower lobe consolidation. RML and RLL are slightly improved from prior. Represents atelectasis and airspace disease. There is decreased right-sided effusion but persistent moderate posterior hydropneumothorax. CXR (07/12/19) Improving. Persistent marked consolidation and volume loss RUL ABG demonstrates compensated metabolic alkalosis CXR (07/14/2019) continued improvement CXR (07/16/19) Persistent RUL consolidation; unchanged from previous Discussed with Dr. Olmedo, [facility] pulmonology regarding Dr. Guthrie's recommendation for transfer for navigational bronchoscopy. Dr. Olmedo reviewed all of her images. He suggests that this is likely a mucous plug or perhaps blood clot as the right upper lobe obstruction appeared to occur quite rapidly on or about June 25 and cytology thus far are negative. He recommends aggressive pulmonary toilet and repeat chest CT imaging. At this time, he does not feel that navigational bronchoscopy would be of benefit but is available should the patient worsen or if we have further questions. He also recommends considering steroid therapy as Dr. Guthrie's operative note suggests inflammation. Continues scheduled and as needed nebulizer treatments. Continue twice daily Mucomyst therapy. Continue IV Solu-Medrol; continue weaning Continue Mucinex. Continue aggressive pulmonary toilet. Pulmonology consulted. Patient may benefit at re-attempt of bronchoscopy; will discuss with Dr. Guthrie (left message w/ office) (2) Acute respiratory failure with hypoxia Is this a current diagnosis for this admission?: Yes Plan: Resolved; secondary to pneumonia. Have asked nursing to wean supplemental oxygen; keep SPO2 greater than 90% Remaining evaluation and management as above. (3) Pleural effusion Is this a current diagnosis for this admission?: Yes Plan: Resolved. Secondary to #1. Effusion appears to be transudative, cultures negative, cytology negative. Chest tube removed 07/14/19 (4) Leukocytosis Qualifiers: Leukocytosis type: unspecified Qualified Code(s): D72.829 - Elevated white blood cell count, unspecified Is this a current diagnosis for this admission?: Yes Plan: Gradual downward trend. Now on steroid therapy. Patient was admitted 06/05/2019 with WBC 4.1. Peaked on 06/11 at 37.5. Has vacillated but overall continue to trend down since that time. Today white count is 21.8 secondary to IV Solu-Medrol. Afebrile >72 hrs Patient has multiple negative blood, bronchial washing, pleural fluid, and sputum cultures that have resulted negative with last positive cultures on 06/06/2019. She did receive appropriate IV meropenem therapy (x3 weeks) for her E. coli pneumonia and bacteremia at that time. Completed an additional 5 days of Cefepime (07/09-07/13). Anticipate increased WBCs secondary to start of IV Solu-Medrol. (5) Anemia Qualifiers: Anemia type: iron deficiency Iron deficiency anemia type: chronic blood loss Qualified Code(s): D50.0 - Iron deficiency anemia secondary to blood loss (chronic) Is this a current diagnosis for this admission?: Yes Plan: Stable. Continue to monitor. (6) Urinary retention Is this a current diagnosis for this admission?: Yes Plan: Resolved. Have discontinued Rojo. Straight cath every 6 hours as needed (7) Acute kidney injury (KATHLEEN) with acute tubular necrosis (ATN) Is this a current diagnosis for this admission?: Yes Plan: Resolved (8) Dehydration Is this a current diagnosis for this admission?: Yes Plan: Resolved (9) Thrombocytopenia Is this a current diagnosis for this admission?: Yes Plan: Resolved (10) Acute metabolic encephalopathy Is this a current diagnosis for this admission?: Yes Plan: Resolved (11) Diarrhea Qualifiers: Diarrhea type: unspecified type Qualified Code(s): R19.7 - Diarrhea, unspecified Is this a current diagnosis for this admission?: Yes Plan: Resolved (12) Sepsis with acute organ dysfunction and septic shock Qualifiers: Sepsis type: Escherichia coli Severe sepsis acute organ dysfunction type: acute renal failure Acute renal failure type: with acute tubular necrosis Qualified Code(s): A41.51 - Sepsis due to Escherichia coli [E. coli]; R65.21 - Severe sepsis with septic shock; N17.0 - Acute kidney failure with tubular necrosis Is this a current diagnosis for this admission?: Yes Plan: Treated and resolved (13) Hypo-osmolar hyponatremia Is this a current diagnosis for this admission?: Yes Plan: Serum sodium is currently normal. Continue to monitor. (14) E coli bacteremia Is this a current diagnosis for this admission?: Yes Plan: Treated and resolved (15) Debility Is this a current diagnosis for this admission?: Yes Plan: We will need to strongly encourage increased activity Physical therapy consulted. (16) Constipation Qualifiers: Constipation type: unspecified constipation type Qualified Code(s): K59.00 - Constipation, unspecified Is this a current diagnosis for this admission?: Yes Plan: Resolved. Continue stool softeners. - Time Time Spent with patient: 25-34 minutes Medications reviewed and adjusted accordingly: Yes Anticipated discharge: SNF
[2019-07-16] MEDS: TIZANIDINE HCL 4 MG TABLET PO PRN ×2 (13:46→21:49)
[2019-07-16] MEDS ORDERED: METHYLPREDNISOLONE INJ 40 MG/1 ML SDV IV SCH (18:00)
[2019-07-16] MEDS: CITALOPRAM HYDROBROMIDE 20 MG TABLET PO SCH (21:46)
[2019-07-16] MEDS: MELATONIN 5 MG TABLET PO SCH (21:46)
[2019-07-17] MEDS: METHYLPREDNISOLONE INJ 40 MG/1 ML SDV IV SCH ×3 (01:04→17:49)
[2019-07-17] MEDS: HEPARIN SOD (PORCINE) 5,000 UNIT/ML 1 ML VIAL SUBCUT SCH ×3 (05:14→21:27)
[2019-07-17 06:14] LABS: HEMATOCRIT 29.7 % (36.0-47.0); HEMOGLOBIN 9.7 g/dL (12.0-15.5); MEAN CORPUSCULAR HEMOGLOBIN 27.8 pg (27.0-33.4); MEAN CORPUSCULAR HGB CONC 32.6 g/dL (32.0-36.0); MEAN CORPUSCULAR VOLUME 85 fl (80-97); PLATELET COUNT 460 10^3/uL (150-450); RED CELL DISTRIBUTION WIDTH 16.7 % (11.5-14.0); WHITE BLOOD COUNT 17.6 10^3/uL (4.0-10.5)
[2019-07-17 06:32] LABS: ANION GAP 6 (5-19); BLOOD UREA NITROGEN 31 mg/dL (7-20); CALCIUM 9.5 mg/dL (8.4-10.2); CARBON DIOXIDE 24 mmol/L (22-30); CHLORIDE 106 mmol/L (98-107); GLUCOSE 143 mg/dL (75-110); POTASSIUM 5.4 mmol/L (3.6-5.0)
[2019-07-17] MEDS: IPRATROPIUM/ALBUTEROL 0.5-2.5 MG/3 ML AMPUL NEB SCH ×2 (08:31→20:29)
[2019-07-17] MEDS: ACETYLCYSTEINE 20% SOLN 800 MG/4 ML VIAL.NEB NEB SCH ×2 (08:31→20:29)
[2019-07-17] MEDS: DOCUSATE SODIUM 100 MG CAPSULE PO SCH ×2 (09:47→17:47)
[2019-07-17] MEDS: POLYETHYLENE GLYCOL 3350 POWDER 17 GM/1 PACKET PO SCH (09:47)
[2019-07-17] MEDS: GUAIFENESIN 600 MG TABLET.SA PO SCH ×2 (09:51→21:27)
[2019-07-17] MEDS: DILTIAZEM HCL 30 MG TABLET PO SCH (09:51)
[2019-07-17] MEDS: MULTIVITAMIN TABLET PO SCH (09:51)
[2019-07-17] MEDS: FERROUS SULFATE 325 MG TABLET PO SCH ×2 (09:51→17:49)
[2019-07-17] MEDS: GABAPENTIN 300 MG CAPSULE PO SCH ×2 (09:51→21:27)
[2019-07-17] MEDS: POTASSIUM CHLORIDE 10 MEQ TABLET.ER PO SCH ×2 (09:52→21:26)
[2019-07-17] MEDS: TIZANIDINE HCL 4 MG TABLET PO PRN ×2 (09:55→21:27)
[2019-07-17] MEDS: HYDROCODONE/ACETAMINOPHEN 10-325 MG TABLET PO PRN ×2 (11:05→21:30)
[2019-07-17] MEDS: MELATONIN 5 MG TABLET PO SCH (21:26)
[2019-07-17] MEDS: CITALOPRAM HYDROBROMIDE 20 MG TABLET PO SCH (21:27)
--- NOTE | 2019-07-17 21:51 | PDOC PROGRESS REPORT ---
Subjective Progress Note for:: 07/17/19 Subjective:: The patient is eating dinner. She is in fact off of her oxygen. She is pleased to report that she has been out of bed since I last saw her and does ambulate in the room somewhat. Reason For Visit: PNA,SEPTIC SHOCK Physical Exam Vital Signs: Temp Pulse Resp BP Pulse Ox 98.7 F 64 16 141/85 H 91 L 07/17/19 14:53 07/17/19 20:29 07/17/19 20:29 07/17/19 14:53 07/17/19 20:29 Intake & Output 07/16/19 07/17/19 07/18/19 06:59 06:59 06:59 Intake Total 1055 1145 1117 Output Total 700 Balance 355 1145 1117 Weight 60 kg 60.6 kg General appearance: PRESENT: no acute distress, cooperative, well-developed Head exam: PRESENT: atraumatic, normocephalic Ear exam: PRESENT: normal external ear exam. ABSENT: bleeding, drainage Mouth exam: PRESENT: moist, tongue midline Respiratory exam: PRESENT: rhonchi - Faint rhonchi right upper chest. Much improved from my last encounter., symmetrical, unlabored. ABSENT: accessory muscle use, prolonged expiratory phas, rales, tachypnea, wheezes Cardiovascular exam: PRESENT: RRR, +S1, +S2, systolic murmur - 3/6 GI/Abdominal exam: PRESENT: normal bowel sounds, soft. ABSENT: distended, guarding, tenderness Rectal exam: PRESENT: deferred Neurological exam: PRESENT: alert, awake, oriented to person, oriented to place, oriented to time, oriented to situation, CN II-XII grossly intact Psychiatric exam: PRESENT: flat affect. ABSENT: agitated, anxious Focused psych exam: ABSENT: delusional, restlessness Skin exam: PRESENT: dry, normal color, warm. ABSENT: rash Results Laboratory Results: 07/17/19 06:03 07/17/19 06:03 07/17/19 07/17/19 06:03 06:03 WBC 17.6 H RBC 3.50 L Hgb 9.7 L Hct 29.7 L MCV 85 MCH 27.8 MCHC 32.6 RDW 16.7 H Plt Count 460 H Sodium 136.2 L Potassium 5.4 H Chloride 106 Carbon Dioxide 24 Anion Gap 6 BUN 31 H Creatinine 0.76 Est GFR ( Amer) > 60 Glucose 143 H Calcium 9.5 06/05/19 06/05/19 06/08/19 21:52 22:51 01:10 Creatine Kinase Cancelled CK-MB (CK-2) Troponin I Cancelled < 0.012 NT-Pro-B Natriuret Pep Cancelled [id number] H 06/08/19 06/08/19 06/14/19 01:10 02:00 04:40 Creatine Kinase < 20 L < 20 L CK-MB (CK-2) 1.21 Troponin I 0.032 NT-Pro-B Natriuret Pep [id number] H 06/14/19 04:40 Creatine Kinase CK-MB (CK-2) < 0.22 Troponin I < 0.012 NT-Pro-B Natriuret Pep Impressions: KUB X-Ray 06/06/19 00:00 IMPRESSION: Nasogastric tube in the gastric body Femoral line in place on the right Abdomen/Pelvis CT 06/10/19 00:00 IMPRESSION: 1. Extensive lung findings as above. When compared to 06/06/2019, right pleural effusion is slightly progressive and there is a new small left pleural effusion. Consolidation in the right lung has improved. Progressive interstitial infiltrate in the right upper lobe with new patchy interstitial infiltrate in the left upper lobe. 2. Other findings as above, stable. IMPRESSION: 1. Limited abdominal valuation given noncontrast technique, motion and external source artifacts as described. 2. Ascites. No overt bowel or urinary obstruction. 3. Generalized soft tissue edema/anasarca. Head CT 06/11/19 00:00 IMPRESSION: 1. No acute intracranial findings. Head MRI 06/24/19 00:00 IMPRESSION: 1. Chronic brain changes, small vessel disease and mild atrophy. No recent CVA or acute intracranial abnormality allowing for bilateral mastoid disease. EVIDENCE OF ACUTE STROKE: NO. Fluoroscopy 07/04/19 00:00 IMPRESSION: IMAGE(S) OBTAINED DURING PROCEDURE. Thoracentesis Ultrasound 07/06/19 00:00 IMPRESSION: SUCCESSFUL PLACEMENT OF A RIGHT SIDED CHEST TUBE USING ULTRASOUND GUIDANCE. Chest CT 07/11/19 08:00 IMPRESSION: 1. Persistent dense consolidation within the right upper lobe. Patchy right middle and lower lobe consolidation with improved aeration from prior. Findings likely represent combination of atelectasis and airspace disease. 2. Decreased size of the right-sided pleural effusion with small bore chest tube in place. Persistent moderate posterior hydropneumothorax. 3. Trace left effusion. Chest X-Ray 07/16/19 00:00 IMPRESSION: Persistent dense right upper lobe consolidation, not significantly changed from prior. Small right pleural effusion. Assessment and Plan - Diagnosis (1) Pneumonia due to Escherichia coli Qualifiers: Laterality: right Lung location: upper lobe of lung Qualified Code(s): J15.5 - Pneumonia due to Escherichia coli Is this a current diagnosis for this admission?: Yes Plan: The patient completed her course of antibiotics. She has a very dense right upper lobe pneumonia. Bronchoscopy was attempted but the bronchus was very narrow. The patient is clearly moving much more air at this point and in fact is off of oxygen. (2) Acute respiratory failure with hypoxia Is this a current diagnosis for this admission?: Yes Plan: Finally off of oxygen. Continue nebulizer regimen and start to taper steroids. (3) Pleural effusion associated with pulmonary infection Is this a current diagnosis for this admission?: Yes Plan: Pleural effusion was tapped. Thoracentesis studies revealed no infection and no malignancy. Patient feeling much better since thoracentesis. Chest tube has been removed. (4) Right-sided back pain Qualifiers: Back pain location: thoracic back pain Chronicity: acute Qualified Code(s): M54.6 - Pain in thoracic spine Is this a current diagnosis for this admission?: Yes Plan: From infection and pleural effusion. Pain has improved. (5) Leukocytosis Qualifiers: Leukocytosis type: unspecified Qualified Code(s): D72.829 - Elevated white blood cell count, unspecified Is this a current diagnosis for this admission?: Yes Plan: Still with elevated white blood cell count. I expect it to improve when the steroid dose is decreased. (6) Anemia Qualifiers: Anemia type: iron deficiency Iron deficiency anemia type: chronic blood loss Qualified Code(s): D50.0 - Iron deficiency anemia secondary to blood loss (chronic) Is this a current diagnosis for this admission?: Yes Plan: Chronic and stable. Continue to monitor. (7) Urinary retention Is this a current diagnosis for this admission?: Yes Plan: Resolved (8) Dehydration Is this a current diagnosis for this admission?: Yes Plan: Resolved (9) Thrombocytopenia Is this a current diagnosis for this admission?: Yes Plan: Secondary to sepsis. Resolved. (10) Acute metabolic encephalopathy Is this a current diagnosis for this admission?: Yes Plan: Secondary to sepsis. Resolved. (11) Constipation Qualifiers: Constipation type: unspecified constipation type Qualified Code(s): K59.00 - Constipation, unspecified Is this a current diagnosis for this admission?: Yes Plan: Resolved (12) Diarrhea Qualifiers: Diarrhea type: unspecified type Qualified Code(s): R19.7 - Diarrhea, unspecified Is this a current diagnosis for this admission?: Yes Plan: Resolved (13) E coli bacteremia Is this a current diagnosis for this admission?: Yes Plan: Treated and resolved (14) Hypo-osmolar hyponatremia Is this a current diagnosis for this admission?: Yes Plan: Resolved (15) Sepsis with acute organ dysfunction and septic shock Qualifiers: Sepsis type: Escherichia coli Severe sepsis acute organ dysfunction type: acute renal failure Acute renal failure type: with acute tubular necrosis Qualified Code(s): A41.51 - Sepsis due to Escherichia coli [E. coli]; R65.21 - Severe sepsis with septic shock; N17.0 - Acute kidney failure with tubular necrosis Is this a current diagnosis for this admission?: Yes Plan: Treated and resolved (16) Debility Is this a current diagnosis for this admission?: Yes Plan: Still with marked debility and deconditioning. Will need aggressive physical therapy at [facility]. (17) Acute kidney injury (KATHLEEN) with acute tubular necrosis (ATN) Is this a current diagnosis for this admission?: Yes Plan: Resolved. (18) Pneumonia due to Chlamydia pneumoniae Is this a current diagnosis for this admission?: No Plan: Chlamydia actually ruled out. (19) Lung mass Is this a current diagnosis for this admission?: Yes Plan: Suspected but ruled out - Plan Summary Summary: The patient has had a prolonged hospitalization. Sepsis has resolved. Pneumonia is finally improving. She is on room air will plan on sending her back to [facility]. - Time Time Spent with patient: 15-24 minutes Medications reviewed and adjusted accordingly: Yes Anticipated discharge: SNF
[2019-07-18] MEDS: METHYLPREDNISOLONE INJ 40 MG/1 ML SDV IV SCH ×3 (02:09→18:14)
[2019-07-18] MEDS: HYDROCODONE/ACETAMINOPHEN 10-325 MG TABLET PO PRN ×2 (05:25→12:59)
[2019-07-18] MEDS: HEPARIN SOD (PORCINE) 5,000 UNIT/ML 1 ML VIAL SUBCUT SCH ×2 (05:25→13:00)
[2019-07-18] MEDS: POLYETHYLENE GLYCOL 3350 POWDER 17 GM/1 PACKET PO SCH (09:01)
[2019-07-18] MEDS: DOCUSATE SODIUM 100 MG CAPSULE PO SCH ×2 (09:01→17:13)
[2019-07-18] MEDS: POTASSIUM CHLORIDE 10 MEQ TABLET.ER PO SCH (09:01)
[2019-07-18] MEDS: FERROUS SULFATE 325 MG TABLET PO SCH ×2 (09:06→18:14)
[2019-07-18] MEDS: MULTIVITAMIN TABLET PO SCH (09:06)
[2019-07-18] MEDS: GUAIFENESIN 600 MG TABLET.SA PO SCH (09:06)
[2019-07-18] MEDS: GABAPENTIN 300 MG CAPSULE PO SCH (09:06)
[2019-07-18] MEDS: IPRATROPIUM/ALBUTEROL 0.5-2.5 MG/3 ML AMPUL NEB SCH (09:24)
[2019-07-18] MEDS: ACETYLCYSTEINE 20% SOLN 800 MG/4 ML VIAL.NEB NEB SCH (09:26)
--- NOTE | 2019-07-18 14:42 | PDOC TRANSFER SUMMARY ---
Impression - Admit/DC Date/PCP Admission Date/Primary Care Provider: 06/06/19 00:55 IRIS APARICIO NP Discharge Date: 07/18/19 - Discharge Diagnosis (1) Pneumonia due to Escherichia coli Is this a current diagnosis for this admission?: Yes (2) Acute respiratory failure with hypoxia Is this a current diagnosis for this admission?: Yes (3) Pleural effusion associated with pulmonary infection Is this a current diagnosis for this admission?: Yes (4) Right-sided back pain Is this a current diagnosis for this admission?: Yes (5) Leukocytosis Is this a current diagnosis for this admission?: Yes (6) Anemia Is this a current diagnosis for this admission?: Yes (7) Urinary retention Is this a current diagnosis for this admission?: Yes (8) Dehydration Is this a current diagnosis for this admission?: Yes (9) Thrombocytopenia Is this a current diagnosis for this admission?: Yes (10) Acute metabolic encephalopathy Is this a current diagnosis for this admission?: Yes (11) Constipation Is this a current diagnosis for this admission?: Yes (12) Diarrhea Is this a current diagnosis for this admission?: Yes (13) E coli bacteremia Is this a current diagnosis for this admission?: Yes (14) Hypo-osmolar hyponatremia Is this a current diagnosis for this admission?: Yes (15) Sepsis with acute organ dysfunction and septic shock Is this a current diagnosis for this admission?: Yes (16) Debility Is this a current diagnosis for this admission?: Yes (17) Acute kidney injury (KATHLEEN) with acute tubular necrosis (ATN) Is this a current diagnosis for this admission?: Yes (18) Pneumonia due to Chlamydia pneumoniae Is this a current diagnosis for this admission?: No (19) Lung mass Is this a current diagnosis for this admission?: Yes - Assessment Summary: The patient has had a prolonged hospitalization. She had multiple comorbidities starting off with sepsis. This was due to E. coli bacteremia and pneumonia. She had a dense right upper lobe infiltrate. The sepsis and associated complications have resolved. She was on oxygen for an extended amount of time and she is finally on room air. She has been stable on room air for several days and I will be sending her back to [facility]. - Additional Information Resuscitation Status: Full Code Discharge Diet: Cardiac Discharge Activity: Activity As Tolerated Referrals: KANIKA MOISE [Other] JEFF GUTHRIE MD [ACTIVE STAFF] - (Please follow-up within the next week or 2) IRIS APARICIO NP [Primary Care Provider] - Follow up as needed Prescriptions: Prednisone [Deltasone 20 mg Tablet] 40 mg PO DAILY #14 tablet Hydrocodone/Acetaminophen [Russell 10-325 mg Tablet] 1 tab PO Q6HP PRN 2 Days #8 tablet PRN Reason: Home Medications: Citalopram Hydrobromide [Celexa 20 mg Tablet] 20 mg PO DAILY 06/06/19 Fluticasone Propionate [Flonase Nasal [place] 50 Mcg/[place] 16 gm] 2 spray NASL DAILY 06/06/19 Latanoprost [Xalatan 0.005% Oph Soln 2.5 ml] 1 drop OU QHS 06/06/19 Acetaminophen with Codeine [Tylenol #3 Tablet] 1 each PO Q4HP PRN 06/15/19 Ergocalciferol (Vitamin D2) [Vitamin D2] 50,000 unit PO 06/15/19 Latanoprost [Xalatan 0.005% Oph Soln 2.5 ml] 1 drop OP QHS 06/15/19 Docusate Sodium [Colace 100 mg Capsule] 100 mg PO BID capsule 07/18/19 Ferrous Sulfate [Feosol 325 mg Tablet] 325 mg PO BIDPCBS tablet 07/18/19 Gabapentin [Neurontin 300 mg Capsule] 300 mg PO Q12 capsule 07/18/19 Guaifenesin [Mucinex Sr 600 mg Tablet.sa] 1,200 mg PO Q12 tablet.sa 07/18/19 Heparin Sodium,Porcine [Heparin Inj 5,000 Units/ml 1 ml Vial] 5,000 unit SUBCUT Q8 vial 07/18/19 Hydrocodone/Acetaminophen [Russell 10-325 mg Tablet] 1 tab PO Q6HP PRN 2 Days #8 tablet 07/18/19 Ipratropium/Albuterol Sulfate [Duoneb 3 ml Ampul] 3 ml NEB RTQ12 vial.neb 07/18/19 Magnesium Hydroxide [Milk of Magnesia 30 ml Udcup] 30 ml PO BIDP PRN udc 07/18/19 Melatonin [Melatonin 5 mg Tablet] 10 mg PO QHS tablet 07/18/19 Multivitamin [Tab-A-Bang (Multiple Vitamin) Tablet] 1 tab PO DAILY tablet 07/18/19 Polyethylene Glycol 3350 [Miralax Powder 17 gm/Packet] 17 gm PO DAILY powd.pack 07/18/19 Potassium Chloride [Klor-Con 10 Meq Tablet ER] 20 meq PO Q12 tablet.er 07/18/19 Prednisone [Deltasone 20 mg Tablet] 40 mg PO DAILY #14 tablet 07/18/19 Tizanidine HCl [Zanaflex 4 mg Tablet] 4 mg PO BIDP PRN tablet 07/18/19 Additional Information: Serum potassium yesterday was 5.3. Please discontinue potassium chloride. History of Present Illiness History of Present Illness: KYLAH DUNHAM is a 63 year old female HPI obtained from ED notes and previous admission documents: Mrs. Dunham is a 63yr old F who has PMHx of chronic pain syndrome, depression, COPD not on home meds, remote hx of cervical CA with HGSIL ~30yrs ago, splenic artery aneurysm measuring 1.8cm noted on abd MRI 07/2015, osteoarthritis and duodenal ulcer with anemia was brought to the ED via EMS from a rehab facility for complaints of SOB, ESVIN, cough and congestion. Mrs. Dunham had a recent admission to this hospital for weakness and KATHLEEN where she was discharged to the rehab facility yesterday. Per ED notes, EMS reported pt was hypoxic en route and placed on CPAP with sats in the 70s while in CPAP. ED provided noted that pt was having increased work of breathing and decision was made to intubate her shortly after arrival for impending respiratory failure. Chest Xray showing large right upper and middle infiltrate. She was noted to be hypotensive in ED and required CVC and levophed to be started. ED initiated Vanco, Cipro and Zosyn for presumed HCAP and pyuria. Pt will be admitted to ICU for continued close monitoring while on MV and BP support. Of note, on pts previous admission (06/01/19), she was found to have a Hgb in the ED of 4.1 with KATHLEEN. She received total of 4u PRBC. EGD was performed to find "very large antral, prepyloric ulcer without active bleeding" and biposy for H. pylori was obtained at that time. Recs for iron supplementation for anemia, BID ppi ad carafate were given at this time. Psych was consulted during this visit for concerns with depression and pt being malnourished. Per psych report, pt states she has worsening depression around May because it is the 2yr anniversary of the passing of her and she reported that her cat recently and she was too depressed to bury the cat. Per the not, it is believed the cat is still in her home and services were offered to assist with removing the cat but the pt refused, stating she wanted to take care or it on her own. Pt denied SI/HI and had insight to her depression with plans to move to [place] to be closer to family after her stay at rehab facility. Recommendations were made to continue PO meds and no acute psych services were needed at that time. She was transferred to SNF on 06/04/19. Hospital Course Hospital Course: The patient had a very prolonged and complicated hospital course. Sepsis-the patient was septic on admission. Sepsis was due to E. coli pneumonia and bacteremia. She had a very dense right upper lobe pneumonia. She had associated complications from sepsis including encephalopathy, kidney failure and thrombocytopenia. She was successfully treated the intensive care unit and transferred to the fourth floor. While on the fourth floor I sent her for thoracentesis of a large right pleural effusion. She had a chest tube in but after no output the chest tube was removed. It was felt that the extremely narrowed bronchus to the right upper lobe was from a mass/malignancy. The pleural effusion was negative for malignancy or infection. Initial bronchoscopy was unsuccessful reaching into the right upper lobe due to the narrowed airway. She must follow-up with Dr. Guthrie for ongoing evaluation of the right upper lobe. Because of the prolonged hospitalization she has become extremely weak. She has started working with physical therapy. She is finally off of oxygen therapy and requires aggressive physical therapy. She was hypokalemic for some time and her serum potassium is now slightly high a nd so please discontinue the potassium chloride. She is on much fewer medications than before this admission. She has been stable on the current regimen for at least 1 to 2 weeks and therefore I would continue the current regimen. As this was a 42-day hospitalization it would be difficult to document the entire stay. This is the salient points. Please request additional medical records if further information is required. Physical Exam Vital Signs: Temp Pulse Resp BP Pulse Ox 98.4 F 91 22 H 157/91 H 96 07/18/19 11:25 07/18/19 11:25 07/18/19 11:25 07/18/19 11:25 07/18/19 11:25 Intake & Output 07/17/19 07/18/19 07/19/19 06:59 06:59 06:59 Intake Total 1145 1662 Balance 1145 1662 Weight 60.6 kg 61.1 kg General appearance: PRESENT: no acute distress, cooperative, well-developed Eye exam: PRESENT: conjunctiva pale, EOMI. ABSENT: scleral icterus Ear exam: PRESENT: normal external ear exam. ABSENT: bleeding, drainage Respiratory exam: PRESENT: clear to auscultation astrid, symmetrical, unlabored. ABSENT: accessory muscle use, prolonged expiratory phas, rales, rhonchi - Rhonchi in the right upper lobe is imperceptible. Significant improvement in aeration of the right upper lobe., tachypnea, wheezes Cardiovascular exam: PRESENT: RRR, +S1, +S2 GI/Abdominal exam: PRESENT: normal bowel sounds, soft. ABSENT: distended, tenderness Musculoskeletal exam: PRESENT: ambulatory - Extremely weak. Ambulation is limited. Neurological exam: PRESENT: alert, awake, oriented to person, oriented to place, oriented to time, oriented to situation, CN II-XII grossly intact Psychiatric exam: PRESENT: flat affect. ABSENT: agitated, anxious Focused psych exam: ABSENT: delusional, restlessness Results Laboratory Results: WBC 17.6 10^3/uL (4.0-10.5) H 07/17/19 06:03 RBC 3.50 10^6/uL (3.72-5.28) L 07/17/19 06:03 Hgb 9.7 g/dL (12.0-15.5) L 07/17/19 06:03 Hct 29.7 % (36.0-47.0) L 07/17/19 06:03 MCV 85 fl (80-97) 07/17/19 06:03 MCH 27.8 pg (27.0-33.4) 07/17/19 06:03 MCHC 32.6 g/dL (32.0-36.0) 07/17/19 06:03 RDW 16.7 % (11.5-14.0) H 07/17/19 06:03 Plt Count 460 10^3/uL (150-450) H 07/17/19 06:03 Lymph % (Auto) Not Reportable 01/28/20 05:20 [place] % (Auto) Not Reportable 07/10/19 05:20 Eos % (Auto) Not Reportable 07/10/19 05:20 Baso % (Auto) Not Reportable 07/10/19 05:20 Reticulocyte # 0.028 10^6/uL (0.028-0.122) 07/02/19 06:40 Absolute Neuts (auto) Not Reportable 07/10/19 05:20 Absolute Lymphs (auto) Not Reportable 07/10/19 05:20 Absolute Monos (auto) Not Reportable 07/10/19 05:20 Absolute Eos (auto) Not Reportable 07/10/19 05:20 Absolute Basos (auto) Not Reportable 07/10/19 05:20 Total Counted 100 07/10/19 05:20 Seg Neutrophils % Not Reportable 07/10/19 05:20 Seg Neuts % (Manual) 81 % (42-78) H 07/10/19 05:20 Band Neutrophils % 1 % (3-5) L 06/24/19 05:32 Lymphocytes % (Manual) 6 % (13-45) L 07/10/19 05:20 Atypical Lymphs % Cancelled 06/08/19 01:10 Monocytes % (Manual) 12 % (3-13) 07/10/19 05:20 Eosinophils % (Manual) 0 % (0-6) 07/10/19 05:20 Basophils % (Manual) 1 % (0-2) 07/10/19 05:20 Metamyelocytes % 1 % (0-1) 07/09/19 13:47 Myelocytes % Cancelled 06/08/19 01:10 Promyelocytes % Cancelled 06/08/19 01:10 Immature Leukocytes % Cancelled 06/08/19 01:10 Abs Neuts (Manual) 9.6 10^3/uL (1.7-8.2) H 07/10/19 05:20 Abs Lymphs (Manual) 0.7 10^3/uL (0.5-4.7) 07/10/19 05:20 Abs Monocytes (Manual) 1.4 10^3/uL (0.1-1.4) 07/10/19 05:20 Absolute Eos (Manual) 0.0 10^3/uL (0.0-0.6) 07/10/19 05:20 Abs Basophils (Manual) 0.1 10^3/uL (0.0-0.2) 07/10/19 05:20 Nucleated RBCs 1 /100 WBC (0) 06/17/19 06:38 Differential Comment Cancelled 06/08/19 01:10 Hypersegmented Neuts PRESENT 07/10/19 05:20 Smudge Cells Cancelled 06/08/19 01:10 Toxic Granulation 1+ 06/27/19 05:16 Toxic Vacuolation PRESENT 06/22/19 14:12 Dohle Bodies Cancelled 06/08/19 01:10 Mateo Rods Cancelled 06/08/19 01:10 WBC Morphology Comment Cancelled 06/08/19 01:10 Platelet Estimate Cancelled 06/08/19 01:10 Clumped Platelets Cancelled 06/08/19 01:10 Large Platelets PRESENT 06/22/19 14:12 Giant Platelets Cancelled 06/08/19 01:10 Platelet Comment INCREASED 07/10/19 05:20 Polychromasia 1+ 06/24/19 05:32 Hypochromasia 1+ 06/24/19 05:32 Poikilocytosis SLIGHT 07/10/19 05:20 Basophilic Stippling PRESENT 06/10/19 03:30 Anisocytosis SLIGHT 07/10/19 05:20 Microcytosis 1+ 06/09/19 04:40 Macrocytosis Cancelled 06/08/19 01:10 Spherocytes Cancelled 06/08/19 01:10 Pappenheimer Bodies Cancelled 06/08/19 01:10 Sickle Cells Cancelled 06/08/19 01:10 Target Cells Cancelled 06/08/19 01:10 Tear Drop Cells SLIGHT 06/27/19 05:16 Ovalocytes SLIGHT 07/10/19 05:20 Stomatocytes SLIGHT 06/21/19 03:34 Helmet Cells Cancelled 06/08/19 01:10 Mchugh-Paia Bodies Cancelled 06/08/19 01:10 [place] Cells SLIGHT 06/13/19 03:25 Acanthocytes (Spur) Cancelled 06/08/19 01:10 Rouleaux Cancelled 06/08/19 01:10 Schistocytes SLIGHT 07/09/19 13:47 RBC Morph Comment Cancelled 06/08/19 01:10 Retic Count (auto) 1.07 % (0.66-2.85) 07/02/19 06:40 PT 15.9 SEC (11.4-15.4) H 07/06/19 06:22 INR 1.26 07/06/19 06:22 INR (Anticoag Therapy) Cancelled 06/08/19 01:10 APTT 39.2 SEC (23.5-35.8) H 07/06/19 06:22 Fibrinogen 452 mg/dL (209-497) 06/08/19 02:00 Carbonic Acid 1.32 mmol/L (1.05-1.35) 07/13/19 12:00 HCO3/H2CO3 Ratio 21:1 07/13/19 12:00 ABG pH 7.43 (7.35-7.45) 07/13/19 12:00 ABG pCO2 44.0 mmHg (35-45) 07/13/19 12:00 ABG pO2 86.2 mmHg (80-100) 07/13/19 12:00 ABG HCO3 28.4 mmol/L (20-24) H 07/13/19 12:00 ABG Total CO2 29.7 mmol/L (21-25) H 07/13/19 12:00 ABG O2 Saturation 96.7 % (94-98) 07/13/19 12:00 ABG Base Excess 3.6 mmol/L 07/13/19 12:00 FiO2 2L 07/13/19 12:00 Sodium 136.2 mmol/L (137-145) L 07/17/19 06:03 Potassium 5.4 mmol/L (3.6-5.0) H 07/17/19 06:03 Chloride 106 mmol/L (98-107) 07/17/19 06:03 Carbon Dioxide 24 mmol/L (22-30) 07/17/19 06:03 Anion Gap 6 (5-19) 07/17/19 06:03 BUN 31 mg/dL (7-20) H 07/17/19 06:03 Creatinine 0.76 mg/dL (0.52-1.25) 07/17/19 06:03 Est GFR ( Amer) > 60 (>60) 07/17/19 06:03 Est GFR (Non-Af Amer) Cancelled 06/08/19 01:10 Est GFR (MDRD) Non-Af > 60 (>60) 07/17/19 06:03 Glucose 143 mg/dL (75-110) H 07/17/19 06:03 POC Glucose 96 mg/dL (70-110) 07/03/19 06:43 Serum Osmolality 257 mOsm/kg (275-301) L 06/11/19 14:45 Lactic Acid 1.3 mmol/L (0.7-2.1) 06/22/19 14:12 Calcium 9.5 mg/dL (8.4-10.2) 07/17/19 06:03 Phosphorus 3.7 mg/dL (2.5-4.5) 06/22/19 04:43 Magnesium 2.0 mg/dL (1.6-2.3) 07/09/19 13:47 Iron < 10.1 ug/dL (37-170) L 07/02/19 06:40 TIBC 144 ug/dL (250-450) L 07/02/19 06:40 Iron Saturation UNABLE TO CALCULATE % (15% - 50%) 07/02/19 06:40 Ferritin 292.00 ng/mL (11.1-264.0) H 07/02/19 06:40 Total Bilirubin 0.2 mg/dL (0.2-1.3) 07/06/19 06:22 Direct Bilirubin 0.2 mg/dL (0.0-0.4) 07/06/19 06:22 Neonat Total Bilirubin Not Reportable 07/06/19 06:22 Neonat Direct Bilirubin Not Reportable 07/06/19 06:22 Neonat Indirect Bili Not Reportable 07/06/19 06:22 AST 14 U/L (14-36) 07/06/19 06:22 ALT 8 U/L (<35) 07/06/19 06:22 Alkaline Phosphatase 69 U/L (38-126) 07/06/19 06:22 Lactate Dehydrogenase 173 U/L (120-246) 07/06/19 06:22 Creatine Kinase < 20 U/L (30-135) L 06/14/19 04:40 CK-MB (CK-2) < 0.22 ng/mL (<4.55) 06/14/19 04:40 Troponin I < 0.012 ng/mL 06/14/19 04:40 C-Reactive Protein 12.3 mg/L (<10.0) H 06/21/19 03:34 NT-Pro-B Natriuret Pep 818617 pg/mL (<125) H 06/08/19 01:10 Total Protein 4.6 g/dL (6.3-8.2) L 07/06/19 06:22 Albumin 2.2 g/dL (3.5-5.0) L 07/06/19 06:22 EGFR Cancelled 06/08/19 01:10 Vitamin B12 673.0 pg/mL (239-931) 07/02/19 06:40 Folate 3.82 ng/mL (>2.76) 07/02/19 06:40 Random Cortisol 28.90 ug/dL (None Established) 06/13/19 09:30 Urine Color YELLOW 07/03/19 22:00 Urine Appearance CLEAR 07/03/19 22:00 Urine pH 8.0 (5.0-9.0) 07/03/19 22:00 Ur Specific [place] 1.012 07/03/19 22:00 Urine Protein 30 mg/dL (NEGATIVE) H 07/03/19 22:00 Urine Glucose (UA) NEGATIVE mg/dL (NEGATIVE) 07/03/19 22:00 Urine Ketones NEGATIVE mg/dL (NEGATIVE) 07/03/19 22:00 Urine Blood NEGATIVE (NEGATIVE) 07/03/19 22:00 Urine Nitrite NEGATIVE (NEGATIVE) 06/05/19 21:52 Urine Nitrite (Reflex) NEGATIVE (NEGATIVE) 07/03/19 22:00 Urine Bilirubin NEGATIVE (NEGATIVE) 07/03/19 22:00 Urine Urobilinogen NEGATIVE mg/dL (<2.0) 07/03/19 22:00 Ur Leukocyte Esterase LARGE (NEGATIVE) H 06/05/19 21:52 Leukocyte Esterase Rfl NEGATIVE (NEGATIVE) 07/03/19 22:00 Urine WBC (Auto) 151 /HPF 06/05/19 21:52 Urine RBC (Auto) 1 /HPF 07/03/19 22:00 Urine Bacteria (Auto) 3+ /HPF 06/05/19 21:52 Urine WBC (Reflex) 1 /HPF 07/03/19 22:00 Squamous Epi Cells Auto 3 /HPF 06/05/19 21:52 U Non-Squamous Epis Auto 2 /HPF 06/05/19 21:52 Urine Mucus (Auto) RARE /LPF 07/03/19 22:00 Urine Osmolality 122 mOsm/kg (300-900) L 06/11/19 14:45 Urine Sodium < 5 mmol/L (30-90) L 06/11/19 14:45 Urine Ascorbic Acid NEGATIVE (NEGATIVE) 07/03/19 22:00 Fluid Type PLEURAL 07/06/19 12:23 Fluid Source LUNG 07/06/19 12:23 Fluid Color YELLOW 07/06/19 12:23 Fluid Appearance HAZY 07/06/19 12:23 Fluid Viscosity LIQUID 07/06/19 12:23 Fluid WBC 106 /uL 07/06/19 12:23 Fluid RBC 1286 /uL 07/06/19 12:23 Fluid Seg Neutrophils 37 % 07/06/19 12:23 Fluid Lymphocytes 44 % 07/06/19 12:23 Fluid Monocytes 19 % 07/06/19 12:23 Fluid Eosinophils 0 % 07/06/19 12:23 Fluid Basophils 0 % 07/06/19 12:23 Fluid Glucose 75 mg/dL (.) 07/06/19 12:23 Fluid Total Protein 2.0 g/dL (.) 07/06/19 12:23 Fluid LDH 90 IU/L (.) 07/06/19 12:23 Time Trough Drawn 1535 06/27/19 15:35 Vancomycin Trough 24.4 ug/mL (5.0-20.0) H 06/27/19 15:35 Heparin-induced Plt Ab 0.173 OD (0.000-0.40) 06/09/19 21:34 Influenza A (Rapid) NEGATIVE (NEGATIVE) 06/06/19 21:23 Influenza B (Rapid) NEGATIVE (NEGATIVE) 06/06/19 21:23 AFB Smear NO ACID FAST BACILLI (NO AFB SEEN) 07/04/19 10:28 Slides for Path Review PATHOLOGIST REVIEWED 06/10/19 12:30 Blood Type A POSITIVE 07/02/19 08:23 Blood Type Confirm A POSITIVE 07/02/19 08:23 Antibody Screen NEGATIVE 07/02/19 08:23 Crossmatch See Detail 07/02/19 08:23 06/05/19 06/05/19 06/08/19 21:52 22:51 01:10 CK-MB (CK-2) 1.21 Troponin I Cancelled < 0.012 0.032 NT-Pro-B Natriuret Pep Cancelled 58756 H [id number] H 06/14/19 04:40 CK-MB (CK-2) < 0.22 Troponin I < 0.012 NT-Pro-B Natriuret Pep Impressions: Chest X-Ray 06/05/19 00:00 IMPRESSION: Tip of the enteric tube in the stomach copyright 2010 [employer]- All Rights Reserved Chest X-Ray 06/05/19 21:08 IMPRESSION: No evidence of acute cardiopulmonary disease. Chest CT 06/06/19 00:00 IMPRESSION: Right upper lobe and middle lobe pneumonia. Right pleural effusion. Mild atelectatic changes in the right lower lobe. The left lung is clear. KUB X-Ray 06/06/19 00:00 IMPRESSION: Nasogastric tube in the gastric body Femoral line in place on the right Chest X-Ray 06/06/19 06:00 IMPRESSION: Rehydration versus progressing pneumonia right lung. No pneumothorax. Chest X-Ray 06/07/19 06:00 IMPRESSION: Improved aeration of the right lung with persistent multifocal airspace disease. Chest X-Ray 06/08/19 00:00 IMPRESSION: Probable worsening of extensive right-sided pneumonia. Chest X-Ray 06/08/19 00:00 IMPRESSION: Improved aeration of the right base post thoracentesis. There is no postprocedure pneumothorax. Thoracentesis Ultrasound 06/08/19 00:00 IMPRESSION: Successful ultrasound-guided thoracentesis. Chest X-Ray 06/08/19 13:15 IMPRESSION: No postprocedural pneumothorax. Abdomen/Pelvis CT 06/10/19 00:00 IMPRESSION: 1. Extensive lung findings as above. When compared to 06/06/2019, right pleural effusion is slightly progressive and there is a new small left pleural effusion. Consolidation in the right lung has improved. Progressive interstitial i nfiltrate in the right upper lobe with new patchy interstitial infiltrate in the left upper lobe. 2. Other findings as above, stable. IMPRESSION: 1. Limited abdominal valuation given noncontrast technique, motion and external source artifacts as described. 2. Ascites. No overt bowel or urinary obstruction. 3. Generalized soft tissue edema/anasarca. Chest CT 06/10/19 00:00 IMPRESSION: 1. Extensive lung findings as above. When compared to 06/06/2019, right pleural effusion is slightly progressive and there is a new small left pleural effusion. Consolidation in the right lung has improved. Progressive interstitial infiltrate in the right upper lobe with new patchy interstitial infiltrate in the left upper lobe. 2. Other findings as above, stable. IMPRESSION: 1. Limited abdominal valuation given noncontrast technique, motion and external source artifacts as described. 2. Ascites. No overt bowel or urinary obstruction. 3. Generalized soft tissue edema/anasarca. Head CT 06/10/19 00:00 IMPRESSION: NO ACUTE INTRACRANIAL FINDINGS. EVIDENCE OF ACUTE STROKE: NO. Chest X-Ray 06/11/19 00:00 IMPRESSION: No change. Head CT 06/11/19 00:00 IMPRESSION: 1. No acute intracranial findings. Thoracentesis Ultrasound 06/11/19 00:00 IMPRESSION: SUCCESSFUL THORACENTESIS USING ULTRASOUND GUIDANCE. Chest X-Ray 06/11/19 12:38 IMPRESSION: NO SIGNIFICANT INTERVAL CHANGE. NO PNEUMOTHORAX FOLLOWING PLACEMENT OF PIGTAIL PLEURAL DRAINAGE CATHETER ON THE RIGHT. Chest X-Ray 06/12/19 06:00 IMPRESSION: Unchanged small bore right basilar chest tube with decreased, now trace right pleural effusion. Persistent patchy right mid lung left upper lobe airspace disease, mildly improved from prior. Chest X-Ray 06/15/19 00:00 IMPRESSION: 1. Persistent right upper lobe pneumonia 2. Right chest drain remains in place. No pneumothorax or significant pleural effusion. Chest X-Ray 06/18/19 00:00 IMPRESSION: 1. Markedly improved aeration of the right upper lung with mild residual opacities. 2. Stable small bore right basilar chest tube. No significant effusion or pneumothorax. Chest X-Ray 06/19/19 06:00 IMPRESSION: STABLE APPEARANCE. NO PNEUMOTHORAX. Chest X-Ray 06/20/19 00:00 IMPRESSION: No pneumothorax status post chest tube removal. There may be a minimal residual right pleural effusion. There is slight haziness in the right upper lobe that could represent some fluid in the fissure. Cannot entirely exclude a limited pneumonia. There is airspace disease in the left lower lobe, atelectasis versus pneumonia. Chest X-Ray 06/20/19 06:00 IMPRESSION: The amount of fluid in the right pleural space is unchanged. The position of the right basilar pleural drainage catheter is also unchanged. Chest X-Ray 06/21/19 06:00 IMPRESSION: Increasing right upper lobe pneumonia. Chest X-Ray 06/22/19 06:00 IMPRESSION: Increased pleural and parenchymal opacities in the right base that obscure the contour of the right hemidiaphragm and blunt the right lateral cost ophrenic sulcus ; these opacities could represent a combination of pleural fluid, atelectasis and/or consolidation. Head MRI 06/24/19 00:00 IMPRESSION: 1. Chronic brain changes, small vessel disease and mild atrophy. No recent CVA or acute intracranial abnormality allowing for bilateral mastoid disease. EVIDENCE OF ACUTE STROKE: NO. Chest CT 06/25/19 00:00 IMPRESSION: 1. Mild improvement aeration in the right upper lobe. There is persistent dense consolidation consistent with pneumonia. Lack of IV contrast limits evaluation for soft tissue masses. 2. Increasing right-sided pleural effusion. 3. New moderate size left pleural effusion. Chest X-Ray 06/25/19 06:00 IMPRESSION: Increasing right upper lobe airspace disease consistent with pneumonia. No other significant interval change. Chest X-Ray 07/02/19 07:00 IMPRESSION: Increased right upper lobe consolidation. Chest X-Ray 07/04/19 00:00 IMPRESSION: IMAGE(S) OBTAINED DURING PROCEDURE. Fluoroscopy 07/04/19 00:00 IMPRESSION: IMAGE(S) OBTAINED DURING PROCEDURE. Chest X-Ray 07/04/19 11:00 IMPRESSION: Increasing opacification throughout the right hemithorax consistent with consolidation along with pleural effusion. Thoracentesis Ultrasound 07/06/19 00:00 IMPRESSION: SUCCESSFUL PLACEMENT OF A RIGHT SIDED CHEST TUBE USING ULTRASOUND GUIDANCE. Chest X-Ray 07/07/19 06:00 IMPRESSION: Right pleural space pigtail catheter, no significant residual right pleural effusion. No pneumothorax. Persistent dense pneumonia in the right upper lobe and right middle lobe. Chest X-Ray 07/08/19 06:00 IMPRESSION: Right posterior pleural space pigtail catheter without residual pleural effusion or pneumothorax Persistent dense consolidation right upper lobe right middle lobe, patchy consolidation right lower lobe. Chest X-Ray 07/09/19 06:00 IMPRESSION: Slight increase in right lower lobe airspace disease since prior study. No other interval change. Right-sided chest tube remains in place. Chest CT 07/11/19 08:00 IMPRESSION: 1. Persistent dense consolidation within the right upper lobe. Patchy right middle and lower lobe consolidation with improved aeration from prior. Findings likely represent combination of atelectasis and airspace disease. 2. Decreased size of the right-sided pleural effusion with small bore chest tube in place. Persistent moderate posterior hydropneumothorax. 3. Trace left effusion. Chest X-Ray 07/12/19 00:00 IMPRESSION: Improving. Persistent marked consolidation and volume loss right upper lobe. Chest X-Ray 07/14/19 00:00 IMPRESSION: Generalize gradual improvement but there is persistent significant abnormality in the right upper lobe. Chest X-Ray 07/16/19 00:00 IMPRESSION: Persistent dense right upper lobe consolidation, not significantly changed from prior. Small right pleural effusion. Plan Health Concerns: Ongoing density of the right upper lobe. The patient should follow-up with Dr. Guthrie for ongoing evaluation and likely repeat bronchoscopy. She is extremely debilitated from this prolonged and complicated hospital stay and will benefit from aggressive physical therapy. Her prednisone should be tapered slowly. Please adjust medications based on the attending physician's evaluation. Plan of Treatment: Will transfer to [facility]. We will continue all the current medications. I have discontinued multiple medications that she was on prior to admission. Her prednisone taper she continues slowly. She may benefit from returning to inhaler therapy for her COPD. Goals: Complete resolution of right upper lobe pneumonia. Improved strength and exercise tolerance. Time Spent: Greater than 30 Minutes Stroke Is this a Stroke Patient?: No Acute Heart Failure - Is this a Heart Failure Patient?: No
[2019-07-18 16:48] VITALS: BP 132/78
== END 2019-07-18 18:19 | DRG 871 ==
LOC: ER 20:54 → EH 06-06 00:55 → ICU 06-06 02:03 → 4S 06-21 14:03
PROVIDERS: ADMIT Internal Medicine; ATTEND Internal Medicine
PROC: 0B9C8ZX Drainage of Right Upper Lung Lobe, Via Natural or Artificial Opening Endoscopic, Diagnostic (ICD-10-PCS; 2019-06-03)
PROC: 0BD48ZX Extraction of Right Upper Lobe Bronchus, Via Natural or Artificial Opening Endoscopic, Diagnostic (ICD-10-PCS; 2019-06-03)
PROC: 5A1945Z Respiratory Ventilation, 24-96 Consecutive Hours (ICD-10-PCS; principal; 2019-06-05)
PROC: 0BH17EZ Insertion of Endotracheal Airway into Trachea, Via Natural or Artificial Opening (ICD-10-PCS; 2019-06-05)
PROC: 06HM33Z Insertion of Infusion Device into Right Femoral Vein, Percutaneous Approach (ICD-10-PCS; 2019-06-05)
PROC: 0DH67UZ Insertion of Feeding Device into Stomach, Via Natural or Artificial Opening (ICD-10-PCS; 2019-06-05)
PROC: 0W9B30Z Drainage of Left Pleural Cavity with Drainage Device, Percutaneous Approach (ICD-10-PCS; 2019-06-05)
PROC: 03HB33Z Insertion of Infusion Device into Right Radial Artery, Percutaneous Approach (ICD-10-PCS; 2019-06-06)
PROC: 0W993ZX Drainage of Right Pleural Cavity, Percutaneous Approach, Diagnostic (ICD-10-PCS; 2019-06-08)
PROC: 02HV33Z Insertion of Infusion Device into Superior Vena Cava, Percutaneous Approach (ICD-10-PCS; 2019-06-09)
PROC: 30243R1 Transfusion of Nonautologous Platelets into Central Vein, Percutaneous Approach (ICD-10-PCS; 2019-06-10)
PROC: 0W9930Z Drainage of Right Pleural Cavity with Drainage Device, Percutaneous Approach (ICD-10-PCS; 2019-06-11)
PROC: 30243N1 Transfusion of Nonautologous Red Blood Cells into Central Vein, Percutaneous Approach (ICD-10-PCS; 2019-06-12)
DX: A41.51 Sepsis due to Escherichia coli [E. coli] (principal); J96.01 Acute respiratory failure with hypoxia; J15.5 Pneumonia due to Escherichia coli; R65.21 Severe sepsis with septic shock; G93.41 Metabolic encephalopathy; N17.0 Acute kidney failure with tubular necrosis; B37.1 Pulmonary candidiasis; N30.00 Acute cystitis without hematuria; D68.9 Coagulation defect, unspecified; E87.1 Hypo-osmolality and hyponatremia; F11.20 Opioid dependence, uncomplicated; J90 Pleural effusion, not elsewhere classified; F41.9 Anxiety disorder, unspecified; F32.9 Major depressive disorder, single episode, unspecified; J43.2 Centrilobular emphysema; Z90.49 Acquired absence of other specified parts of digestive tract; Z82.49 Family history of ischemic heart disease and other diseases of the circulatory system; G89.4 Chronic pain syndrome; Z85.41 Personal history of malignant neoplasm of cervix uteri; D50.0 Iron deficiency anemia secondary to blood loss (chronic); L89.152 Pressure ulcer of sacral region, stage 2; M19.90 Unspecified osteoarthritis, unspecified site; Z87.11 Personal history of peptic ulcer disease; Z87.891 Personal history of nicotine dependence; Z66 Do not resuscitate; D69.49 Other primary thrombocytopenia; D72.829 Elevated white blood cell count, unspecified; R33.9 Retention of urine, unspecified; K59.00 Constipation, unspecified; R19.7 Diarrhea, unspecified; E87.6 Hypokalemia
CPT/HCPCS: 00520; 31624; 31628; 31629; 32555; 32557; 36415; 36430; 36556; 36600; 36620; 51702; 70450; 70551; 71045; 71250; 74018; 74176; 80048; 80053; 80202; 81001; 82533; 82550; 82553; 82565; 82607; 82728; 82746; 82803; 82945; 82962; 83540; 83550; 83605; 83615; 83735; 83880; 83930; 83935; 84100; 84157; 84300; 84484; 85025; 85027; 85045; 85384; 85610; 85730; 86022; 86140; 86850; 86900; 86901; 86920; 87015; 87040; 87070; 87075; 87077; 87086; 87101; 87116; 87150; 87186; 87205; 87206; 87486; 87804; 88184; 88185; 88305; 88341; 88342; 89050; 93005; 93010; 93306; 94002; 94003; 94640; 94660; 94667; 94668; 94799; 96361; 96365; 96367; 96375; 96376; 99291; 99292; C1751; C1758; C1769; C1894; C9113; C9290; J0131; J0282; J0330; J0456; J0610; J0692; J0744; J1450; J1642; J1644; J1720; J1756; J1940; J2185; J2250; J2270; J2370; J2405; J2543; J2704; J2765; J2920; J2930; J3010; J3370; J3430; J3475; J3480; J3490; J7030; J7042; J7050; J7060; J7120; J7620; P9016; P9035; P9041; P9047

== ENCOUNTER 2019-08-08 14:22 | Inpatient (IN) | payer MEDICARE, OTHER ==
[2019-08-08] MEDS ORDERED: NORMAL SALINE 1000 ML 1,000 ML IV ONE ×3 (15:17→18:57)
[2019-08-08 15:18] LABS: ABSOLUTE BASOPHILS # (AUTO) 0.1 10^3/uL (0.0-0.2); ABSOLUTE EOSINOPHILS # (AUTO) 0.4 10^3/uL (0.0-0.6); ABSOLUTE LYMPHOCYTES (AUTO) 0.7 10^3/uL (0.5-4.7); ABSOLUTE MONOCYTES (AUTO) 0.6 10^3/uL (0.1-1.4); ABSOLUTE NEUT (AUTO) 8.5 10^3/uL (1.7-8.2); BASOPHILS % (AUTO) 0.6 % (0-2); EOSINOPHILS % (AUTO) 3.4 % (0-6); HEMATOCRIT 27.6 % (36.0-47.0); HEMOGLOBIN 9.2 g/dL (12.0-15.5); LYMPHOCYTES % (AUTO) 6.7 % (13-45); MEAN CORPUSCULAR HEMOGLOBIN 30.4 pg (27.0-33.4); MEAN CORPUSCULAR HGB CONC 33.3 g/dL (32.0-36.0); MEAN CORPUSCULAR VOLUME 91 fl (80-97); MONOCYTES % (AUTO) 6.3 % (3-13); PLATELET COUNT 272 10^3/uL (150-450); RED BLOOD COUNT 3.03 10^6/uL (3.72-5.28); RED CELL DISTRIBUTION WIDTH 18.5 % (11.5-14.0); TOTAL CELLS COUNTED % (AUTO) 100 %; WHITE BLOOD COUNT 10.3 10^3/uL (4.0-10.5)
[2019-08-08 15:36] LABS: ALBUMIN 3.1 g/dL (3.5-5.0); ALKALINE PHOSPHATASE 82 U/L (38-126); ANION GAP 8 (5-19); ASPARTATE AMINO TRANSFERASE 33 U/L (14-36); BILIRUBIN,TOTAL 2.1 mg/dL (0.2-1.3); BLOOD UREA NITROGEN 32 mg/dL (7-20); CALCIUM 9.3 mg/dL (8.4-10.2); CARBON DIOXIDE 22 mmol/L (22-30); CHLORIDE 107 mmol/L (98-107); GLUCOSE 72 mg/dL (75-110); POTASSIUM 5.7 mmol/L (3.6-5.0); TOTAL PROTEIN 5.7 g/dL (6.3-8.2)
--- NOTE | 2019-08-08 15:42 | RADIOLOGY REPORT (SQ) ---
EXAM DESCRIPTION: CT HEAD WITHOUT COMPLETED DATE/TIME: 08/08/2019 3:29 pm REASON FOR STUDY: fall-hit head; lightheaded COMPARISON: 06/11/2019 TECHNIQUE: Axial images acquired through the brain without intravenous contrast. Images reviewed wi th bone, brain and subdural windows. Additional sagittal and coronal reconstructions were generated. Images stored on PACS. All CT scanners at this facility use dose modulation, iterative reconstruction, and/or weight based d osing when appropriate to reduce radiation dose to as low as reasonably achievable (ALARA). [facility]: Dose Right [facility]: CareDose [facility]: Dose Right [facility]: Teradose 4D [facility]: Qloo RADIATION DOSE: CT Rad equipment meets quality standard of care and radiation dose reduction techniq ues were employed. CTDIvol: 53.2 mGy. DLP: 1124 mGy-cm. mGy. LIMITATIONS: None. FINDINGS: VENTRICLES: Prominent. CEREBRUM: No masses. No hemorrhage. No midline shift. Areas of low density in the white matter mos t likely due to chronic micro-vascular ischemic change. No evidence for acute infarction. CEREBELLUM: No masses. No hemorrhage. No alteration of density. No evidence for acute infarction. EXTRAAXIAL SPACES: Mild age-related involutional change. No fluid collections. No masses. ORBITS AND GLOBE: No intra- or extraconal masses. Normal contour of globe without masses. CALVARIUM: No fracture. PARANASAL SINUSES: There is mucosal thickening in the left maxillary sinus. Small retention cyst or polyp in the medial aspect of the right maxillary sinus. There are air-fluid levels in the sphenoid sinus. SOFT TISSUES: No mass or hematoma. OTHER: No other significant finding. IMPRESSION: 1. Mild small vessel ischemic change. 2. Maxillary and sphenoid sinusitis. 3. No acute intracranial event. EVIDENCE OF ACUTE STROKE: NO. TECHNICAL DOCUMENTATION: JOB ID: [id number] Quality ID # [id number]: Final reports with documentation of one or more dose reduction techniques (e.g., Au tomated exposure control, adjustment of the mA and/or kV according to patient size, use of iterative reconstruction technique) 2010 [employer]- All Rights Reserved Reading location - IP/workstation name: [email or web address]
--- NOTE | 2019-08-08 15:49 | RADIOLOGY REPORT (SQ) ---
EXAM DESCRIPTION: SACRUM AND COCCYX COMPLETED DATE/TIME: 08/08/2019 3:41 pm REASON FOR STUDY: fall and pain COMPARISON: None. NUMBER OF VIEWS: Three views. TECHNIQUE: AP, lateral, and tilt views of the sacrum and coccyx. LIMITATIONS: None. FINDINGS: MINERALIZATION: Normal. BONES: No acute fracture or dislocation. No worrisome bone lesions. SOFT TISSUES: No soft tissue swelling. No foreign body. OTHER: Degenerative changes in the visualize lower lumbar spine. IMPRESSION: NEGATIVE STUDY OF THE SACRUM AND COCCYX. TECHNICAL DOCUMENTATION: JOB ID: [id number] 2011 [email or web address]- All Rights Reserved Reading location - IP/workstation name: [email or web address]
--- NOTE | 2019-08-08 15:58 | RADIOLOGY REPORT (SQ) ---
EXAM DESCRIPTION: CHEST 2 VIEWS COMPLETED DATE/TIME: 08/08/2019 3:41 pm REASON FOR STUDY: low BP COMPARISON: 07/16/2019 EXAM PARAMETERS: NUMBER OF VIEWS: two views TECHNIQUE: Digital Frontal and Lateral radiographic views of the chest acquired. RADIATION DOSE: NA LIMITATIONS: none FINDINGS: LUNGS AND PLEURA: Persistent pleural thickening in the right upper lobe wall is significan tly improved from prior study. Minimal residual right perihilar fullness. Left lung field is clear. There is blunting of the right costophrenic angle consistent with small effusion or pleural thicken ing. MEDIASTINUM AND HILAR STRUCTURES: No masses or contour abnormalities. HEART AND VASCULAR STRUCTURES: Heart normal size. No evidence for failure. BONES: No acute findings. HARDWARE: None in the chest. OTHER: No other significant finding. IMPRESSION: Persistent relatively dense right upper lobe consolidation mostly subpleural in location . Significantly improved from prior study. TECHNICAL DOCUMENTATION: JOB ID: [id number] 2010 [employer]- All Rights Reserved Reading location - IP/workstation name: [email or web address]
[2019-08-08 16:49] LABS: APPEARANCE,URINE SLIGHTLY-CLOUDY; BILIRUBIN,URINE NEGATIVE (NEGATIVE); COLOR,URINE YELLOW; GLUCOSE, URINE NEGATIVE (NEGATIVE); KETONES,URINE NEGATIVE (NEGATIVE); LEUKOCYTE ESTERASE,URINE LARGE (NEGATIVE); NITRITE,URINE NEGATIVE (NEGATIVE); PROTEIN,URINE NEGATIVE (NEGATIVE); URINE SPECIFIC GRAVITY 1.012; UROBILINOGEN,URINE NEGATIVE mg/dL (<2.0)
--- NOTE | 2019-08-08 17:27 | EKG REPORT ---
SEVERITY:- BORDERLINE ECG - SINUS RHYTHM PROBABLE LEFT ATRIAL ABNORMALITY : Confirmed by: Dorina Jurado MD 08-Aug-2019 17:26:28
[2019-08-08] MEDS ORDERED: CEFTRIAXONE 1 GM/D5W RTU 1 GM/50 ML RTUPB IV ONE (17:39)
--- NOTE | 2019-08-08 19:05 | ER Document Report ---
ED General - General Chief Complaint: Low Blood Pressure Stated Complaint: BLOOD PRESSURE ISSUES Time Seen by Provider: 08/08/19 15:11 Primary Care Provider: LEIGH ADAMES MD [Primary Care Provider] - Follow up as needed TRAVEL OUTSIDE OF THE [place] IN LAST 30 DAYS: No - HPI Notes: Patient is a 63-year-old female sent to the emergency department for evaluation from [facility]. The patient has had a low blood pressure. She is a poor historian, and really cannot tell me much more than that. It seems that is been going on for several days. She states that last week she had been walking well. The next day, she had to try to go to the bathroom. She called and s tates that nobody answered, so she got up to go to the bathroom herself. Upon coming back she fell and hit her head. She denies any katy fevers, states she has been chilled intermittently. She states she feels cold all the time. No nausea or vomiting. She states she has been having diarrhea since her discharge from the hospital. At this point she denies any pain. She denies any dizziness. She states she is still urinating normally. - Related Data Allergies/Adverse Reactions: No Known Allergies Allergy (Verified 01/11/17 10:27) Home Medications: List unchanged from discharge summary, reviewed by this physician Past Medical History - General Information source: Patient - Social History Smoking Status: Former Smoker Chew tobacco use (# tins/day): No Frequency of alcohol use: None Drug Abuse: None Family History: COPD, Hypertension. denies: Malignancy Patient has suicidal ideation: No Patient has homicidal ideation: No - Past Medical History Cardiac Medical History: Denies: Hx Coronary Artery Disease, Hx Heart Attack, Hx Hypertension Pulmonary Medical History: Reports: Hx Bronchitis, Hx COPD - questionable, Hx Intubation, Hx Respiratory Failure Denies: Hx Asthma, Hx Pneumonia Neurological Medical History: Denies: Hx Cerebrovascular Accident, Hx Seizures Renal/ Medical History: Denies: Hx Peritoneal Dialysis GI Medical History: Reports: Hx Gastroesophageal Reflux Disease, Hx Pancreatitis - Chronic, Other - History of upper GI bleed Musculoskeletal Medical History: Reports Hx Arthritis - generalized , Reports Hx Musculoskeletal Deformity Psychiatric Medical History: Reports: Hx Anxiety, Hx Depression Infectious Medical History: Denies: Hx HIV Past Surgical History: Reports: Hx Cholecystectomy, Hx Orthopedic Surgery - astrid wrists, ankle, Hx Tonsillectomy, Hx Tubal Ligation - Immunizations Hx Diphtheria, Pertussis, Tetanus Vaccination: Yes Review of Systems - Review of Systems Constitutional: See HPI Gastrointestinal: See HPI Neurological/Psychological: See HPI Physical Exam - Vital signs Vitals: Pulse Ox 97 08/08/19 14:23 - Notes Notes: Is a very pleasant 63-year-old female who appears older than her stated age in no acute distress. She is frail in appearance. Vital signs reviewed, please refer to chart. Head is normocephalic, atraumatic. Pupils equal round, reactive to light. Neck is supple without meningismus. Heart is regular rate and rhythm. Lungs are clear to auscultation bilaterally. Abdomen is soft, nontender, normoactive bowel sounds throughout. Extremities without cyanosis, clubbing. Posterior calves are nontender. Peripheral pulses are equal. Skin is warm and dry. Patient is awake, alert, neurological exam is nonfocal. Course - Re-evaluation Re-evalutation: 08/08/19 19:03 Patient presents to the emergency department for evaluation. On arrival her blood pressure was 76/44. She was given IV fluids. Her blood pressure after only 1 L was consistently in the 90s and 100s for quite some time. I suspect she does have urosepsis. She does have continuing consolidation on chest x-ray, but this is significantly improved from prior study. The patient has minimal coughing and states she does not have any shortness of breath. Unfortunately, her pressure did drop again. Her maps have remained above 60. She is remained awake and alert, and her Rojo catheter showed good output. She is receiving the second liter, but despite adequate fluid resuscitation her blood pressures are still low. I spoke initially with medicine when her blood pressure had normalized. They did have some discomfort about admitting a patient his blood pressures were borderline with a history of severe septic shock in the recent past. I spoke with Dr. Bowers. He asked that a random cortisol level be added. He will send Amber Howell, nurse practitioner, down to evaluate the patient. 08/08/19 19:05 08/08/19 20:37 Amber Howell will accept the patient to the ICU for further care, on behalf of Dr. Bowers. - Vital Signs Vital signs: Temp Pulse Resp BP Pulse Ox 98.1 F 21 H 94/65 L 100 02/26/20 18:46 08/08/19 20:33 08/08/19 20:33 08/08/19 20:33 - Laboratory Result Diagrams: 08/08/19 14:38 08/08/19 14:38 Laboratory results interpreted by me: 08/08/19 08/08/19 08/08/19 14:38 14:38 16:10 RBC 3.03 L Hgb 9.2 L Hct 27.6 L RDW 18.5 H Lymph % (Auto) 6.7 L Absolute Neuts (auto) 8.5 H Seg Neutrophils % 83.0 H Sodium 136.9 L Potassium 5.7 H BUN 32 H Creatinine 1.45 H Est GFR ( Amer) 44 L Est GFR (MDRD) Non-Af 36 L Glucose 72 L Total Bilirubin 2.1 H Direct Bilirubin 2.0 H Total Protein 5.7 L Albumin 3.1 L Ur Leukocyte Esterase LARGE H - Diagnostic Test Radiology reviewed: Reports reviewed Radiology results interpreted by me: 08/08/19 19:[address] 08/08/19 00:00 IMPRESSION: 1. Mild small vessel ischemic change. 2. Maxillary and sphenoid sinusitis. 3. No acute intracranial event. EVIDENCE OF ACUTE STROKE: NO. Sacrum and Coccyx X-Ray 08/08/19 00:00 IMPRESSION: NEGATIVE STUDY OF THE SACRUM AND COCCYX. Chest X-Ray 08/08/19 15:19 IMPRESSION: Persistent relatively dense right upper lobe consolidation mostly subpleural in location. Significantly improved from prior study. - EKG Interpretation by Me Additional EKG results interpreted by me: 08/08/19 19:06 Sinus mechanism with a rate of 74 bpm. Normal axis and intervals. No acute ST changes concerning for ischemia or infarction. Critical Care Note - Critical Care Note Total time excluding time spent on procedures (mins): 45 Discharge - Discharge Clinical Impression: Severe sepsis, Acute kidney injury Urinary tract infection Qualifiers: Urinary tract infection type: site unspecified Hematuria presence: without hematuria Qualified Code(s): N39.0 - Urinary tract infection, site not specified Condition: Stable Disposition: ADMITTED INPATIENT Unit Admitted: ICU Referrals: LEIGH ADAMES MD [Primary Care Provider] - Follow up as needed
[2019-08-08] MEDS ORDERED: ALBUTEROL SULFATE 0.083% NEB 2.5 MG/3 ML AMPUL NEB PRN (20:57)
[2019-08-08] MEDS ORDERED: MELATONIN 5 MG TABLET PO PRN (20:57)
[2019-08-08] MEDS: RINGERS SOLUTION,LACTATED 1,000 ML IV PRN (21:00)
[2019-08-08] MEDS: HEPARIN SOD (PORCINE) 5,000 UNIT/ML 1 ML VIAL SUBCUT SCH (21:04)
[2019-08-08] MEDS ORDERED: HYDROCORTISONE SOD SUCCINATE INJ/PF 100 MG/2 ML SDV IV ONE (21:30)
[2019-08-08 21:59] LABS: PHOSPHORUS 6.4 mg/dL (2.5-4.5)
[2019-08-08 22:17] LABS: FREE T3 3.41 pg/mL (2.77-5.27); FREE T4 (FREE THYROXINE) 1.32 ng/dL (0.78-2.19)
[2019-08-08 22:31] LABS: THYROID STIMULATING HORMONE 6.94 uIU/mL (0.47-4.68)
--- NOTE | 2019-08-08 23:57 | CRITICAL CARE ADMISSION REPORT ---
HPI Date:: 08/08/19 Time:: 21:09 Reason for ICU Reason:: hpotension HPI: Mrs. Graf is a 63yr old woman who is well known to the ICU service after a prolonged stay later May to early June of this year with failure to thrive, E. coli bacteremia, KATHLEEN, acute respiratory failure requiring intubation, large pleural effusions requiring thoracentesis and chest tube. She was transferred to [facility] service and discharged to [facility] for rehab. She was sent to the ED today from [place] for hypotension that she states has been an issues for "a few days now." Mrs. Graf states she has been gaining her strenght back from her prolonged admission in the hospital but still has weakness in her legs. She attempted to get up on her own and get the a commode in her room and her right leg gave out on her. She denies having symptoms of CP/palpitations/BAKER/etc with this fall and states she did not hit her head; she fell back on her bottom and when she attempted to get back in bed, an aid discovered her on the floor with a skin tear and blood from her coccyx area. She reports diarrhea without abdominal pain or N/V but attributes this to the medications she is given at the nursing facility (colace and miralax). Denies any urinary symptoms. Reports a productive cough that has been present since discharge. ICU was consulted for concerns with continued hypotension in the ED despite IV fluids. Pt will be admitted to the ICU for monitoring overnight after discussion with Dr. Bowers History obtained from:: patient and prior records - Diagnosis/Plan (1) Hypotension Is this a current diagnosis for this admission?: Yes (2) Adrenal insufficiency due to steroid withdrawal Is this a current diagnosis for this admission?: Yes (3) Chronic bronchitis Is this a current diagnosis for this admission?: Yes (4) Acute kidney injury Is this a current diagnosis for this admission?: Yes (5) UTI (urinary tract infection) Qualifiers: Urinary tract infection type: site unspecified Hematuria presence: without hematuria Qualified Code(s): N39.0 - Urinary tract infection, site not specified Is this a current diagnosis for this admission?: Yes (6) CHRONC PAIN Is this a current diagnosis for this admission?: Yes (7) Dehydration Is this a current diagnosis for this admission?: Yes (8) Diarrhea Qualifiers: Diarrhea type: unspecified type Qualified Code(s): R19.7 - Diarrhea, unspecified Is this a current diagnosis for this admission?: Yes (9) Fall Is this a current diagnosis for this admission?: Yes (10) Consolidation of right upper lobe Is this a current diagnosis for this admission?: Yes (11) Weakness Is this a current diagnosis for this admission?: Yes - . Plan Summary: Plan and recommendations: Pulmonary: * Currently stable without distress on NC - monitor on continuous pulse ox * Chest xray showing dense consolidation in RUL that has improved from most recent xray on previous admission - continue to monitor * Hx of chronic bronchitis/COPD - albuterol and duonebs CV: * Hypotension - continuous cardiac monitoring, most recent Echo 06/07 shows normal EF, EKG stable - jonatanley 2/2 adrenal insufficiency/steroid withdrawal * obtain orthostatic BP to assess for abnormalities Neuro: * Hx of depression - continue home Celexa * Hx of chronic pain - holding Lafe and gabapentin at this time to assess response treatment plan - assess for the need to restart medications * reported weakness likely 2/2 prolonged hopsital admission and steroid myopathy with predatory animal exterminator steroid use vs hypothyroid - labs pending Renal: * Rojo in place - monitor I&O * trend renal indices and replace lytes PRN * KATHLEEN - continue with IV fluids and monitor daily * ? UTI - urine culture pending, no urinary symptoms and WBC stable - will hold on continuing antibiotics at this time GI: * Diarrhea - medication induced vs hypothyroid - labs pending * Regular diet * No indication for GI ppx at this time Endo: * Adrenal insufficiency likely 2/2 prolonged treatment with steroids during admission and on discharge - begin steroid therapy * THS elevated on previous admission - labs pending Heme/Onc: * Stable H/H - trend and transfuse for Hgb <7.0 * heparin for DVT ppx ID: * Cipro given in ED for suspected UTI * Blood and urine cultures pending - will hold on continuing abx at this time with stable WBC, afebrile and suspected cause of hypotension as previously discussed Dispo: Pt was set to leave long term this Tuesday and move to [place] to live with her sons permanently. Pt would like to try to keep with this plan if possible Past Medical History Cardiac Medical History: Denies: Coronary Artery Disease, Myocardial Infarction, Hypertension Pulmonary Medical History: Reports: Bronchitis, Chronic Obstructive Pulmonary Disease (COPD) - questionable, Intubation, Respiratory Failure, Other - Pulmonary effusions with thoracentesis and chest tube Denies: Asthma, Pneumonia Neurological Medical History: Denies: Seizures Endocrine Medical History: Reports: Hypothyroidism GI Medical History: Reports: Gastroesophageal Reflux Disease, Other - History of upper GI bleed Musculoskeltal Medical History: Reports: Arthritis - generalized Psychiatric Medical History: Reports: Depression Hematology: Reports: Anemia Denies: Sickle Cell Disease Infectious Medical History: Denies: HIV Past Surgical History Past Surgical History: Reports: Cholecystectomy, Orthopedic Surgery - astrid wrists, ankle, Tonsillectomy, Tubal Ligation Social/Family History - Social History Smoking Status: Former Smoker Frequency of Alcohol Use: None Hx Recreational Drug Use: No Drugs: None Hx Prescription Drug Abuse: No - Medication/Allergies Home Medications: Acetaminophen with Codeine [Tylenol #3 Tablet] 1 each PO Q4HP PRN 08/08/19 Citalopram Hydrobromide [Celexa 20 mg Tablet] 20 mg PO DAILY 08/08/19 Ferrous Sulfate [Feosol 325 mg Tablet] 325 mg PO BID 08/08/19 Fluticasone Propionate [Flonase Nasal [place] 50 Mcg/[place] 16 gm] 2 sprays NASL DAILY 08/08/19 Gabapentin [Neurontin 300 mg Capsule] 300 mg PO Q12 08/08/19 Hydrocodone/Acetaminophen [Lafe 10-325 mg Tablet] 1 tab PO Q6HP PRN 08/08/19 Ipratropium/Albuterol Sulfate [Duoneb 3 ml Ampul] 3 ml NEB RTQ12 08/08/19 Latanoprost [Xalatan] 2.5 ml OU QHS 08/08/19 Magnesium Hydroxide [Milk of Magnesia 30 ml Udcup] 30 ml PO BIDP PRN 08/08/19 Melatonin [Melatonin 5 mg Tablet] 10 mg PO QHS 08/08/19 Potassium Chloride [Klor-Con 10 Meq Tablet ER] 10 meq PO Q12 08/08/19 Tizanidine HCl [Zanaflex 4 Mg Tablet] 4 mg PO Q12HP PRN 08/08/19 Allergies/Adverse Reactions: No Known Allergies Allergy (Verified 01/11/17 10:27) Review of Systems Constitutional: PRESENT: chills. ABSENT: anorexia, fatigue, headache(s) Nose, Mouth, and Throat: ABSENT: headache(s), sore throat Cardiovascular: ABSENT: chest pain, dyspnea on exertion, orthropnea, pa lpitations Respiratory: PRESENT: cough - productive. ABSENT: dyspnea, hemoptysis Gastrointestinal: PRESENT: diarrhea. ABSENT: abdominal pain, constipation, nausea, vomiting Genitourinary: ABSENT: difficulty urinating, dysuria, hematuria Musculoskeletal: PRESENT: muscle weakness Integumentary: ABSENT: rash Neurological: ABSENT: confusion, dizziness, numbness Psychiatric: ABSENT: depression Hematologic/Lymphatic: PRESENT: easy bruising Physical Exam Vital Signs: Temp Pulse Resp BP Pulse Ox 98.2 F 87 18 94/63 L 95 08/08/19 20:47 08/08/19 20:47 08/08/19 20:47 08/08/19 20:47 08/08/19 20:47 Intake & Output 08/07/19 08/08/19 08/09/19 06:59 06:59 06:59 Intake Total 2340 Balance 2340 Weight 58.1 kg Weight/Height Weight 58.1 kg Height 5 ft 6 in General appearance: PRESENT: no acute distress, cooperative, well-developed, well-nourished Head exam: PRESENT: atraumatic, normocephalic Eye exam: PRESENT: conjunctiva pink, EOMI, PERRLA Ear exam: PRESENT: normal external ear exam Mouth exam: PRESENT: moist, tongue midline Neck exam: PRESENT: full ROM. ABSENT: tracheal deviation Respiratory exam: PRESENT: crackles - RUL, symmetrical, unlabored. ABSENT: accessory muscle use, wheezes Cardiovascular exam: PRESENT: RRR, +S1, +S2 Pulses: PRESENT: normal radial pulses, normal dorsalis pedis pul Vascular exam: PRESENT: normal capillary refill GI/Abdominal exam: PRESENT: normal bowel sounds, soft. ABSENT: distended, tenderness Extremities exam: ABSENT: pedal edema Neurological exam: PRESENT: alert, awake, oriented to person, oriented to place, oriented to time, oriented to situation, CN II-XII grossly intact Psychiatric exam: PRESENT: appropriate affect Skin exam: PRESENT: dry, skin tears - scattered on BUE in various stages of healing and various sizes, warm Laboratory/Radiographs Laboratory Results: 08/08/19 14:38 08/08/19 14:38 08/08/19 08/08/19 08/08/19 14:38 14:38 14:38 WBC 10.3 RBC 3.03 L Hgb 9.2 L Hct 27.6 L MCV 91 MCH 30.4 MCHC 33.3 RDW 18.5 H Plt Count 272 Seg Neutrophils % 83.0 H Sodium 136.9 L Potassium 5.7 H Chloride 107 Carbon Dioxide 22 Anion Gap 8 BUN 32 H Creatinine 1.45 H Est GFR ( Amer) 44 L Glucose 72 L Lactic Acid Calcium 9.3 Total Bilirubin 2.1 H AST 33 Alkaline Phosphatase 82 Total Protein 5.7 L Albumin 3.1 L Lipase 50.1 Urine Color Urine Appearance Urine pH Ur Specific [place] Urine Protein Urine Glucose (UA) Urine Ketones Urine Blood Urine Nitrite Ur Leukocyte Esterase Urine WBC (Auto) Urine RBC (Auto) Blood Type A POSITIVE Antibody Screen NEGATIVE 08/08/19 08/08/19 16:10 16:42 WBC RBC Hgb Hct MCV MCH MCHC RDW Plt Count Seg Neutrophils % Sodium Potassium Chloride Carbon Dioxide Anion Gap BUN Creatinine Est GFR ( Amer) Glucose Lactic Acid 0.9 Calcium Total Bilirubin AST Alkaline Phosphatase Total Protein Albumin Lipase Urine Color YELLOW Urine Appearance SLIGHTLY-CLOUDY Urine pH 5.0 Ur Specific [place] 1.012 Urine Protein NEGATIVE Urine Glucose (UA) NEGATIVE Urine Ketones NEGATIVE Urine Blood NEGATIVE Urine Nitrite NEGATIVE Ur Leukocyte Esterase LARGE H Urine WBC (Auto) 124 Urine RBC (Auto) 3 Blood Type Antibody Screen 08/08/19 10:10 Troponin I 0.012 Impressions: Head CT 08/08/19 00:00 IMPRESSION: 1. Mild small vessel ischemic change. 2. Maxillary and sphenoid sinusitis. 3. No acute intracranial event. EVIDENCE OF ACUTE STROKE: NO. Sacrum and Coccyx X-Ray 08/08/19 00:00 IMPRESSION: NEGATIVE STUDY OF THE SACRUM AND COCCYX. Chest X-Ray 08/08/19 15:19 IMPRESSION: Persistent relatively dense right upper lobe consolidation mostly subpleural in location. Significantly improved from prior study. Critical Time Critical Time (minutes): 45 -: The care of a critically ill patient is dynamic. This note represents a static moment in the admission process. Orders and treatments may be given sim ultaneously and urgently, and time is not equal opportunity representative of the treatment process. This patient requires Critical Care secondary to life threatening organ or limb dysfunction. Without Critical Care services, the patient is at risk for increased mortality and morbidity.
[2019-08-08] MEDS ORDERED: ACETAMINOPHEN WITH CODEINE #3 TABLET PO PRN (23:59)
[2019-08-09] MEDS ORDERED: HYDROCODONE/ACETAMINOPHEN 10-325 MG TABLET PO PRN ×2 (00:01→06:58)
[2019-08-09 04:07] LABS: HEMATOCRIT 26.3 % (36.0-47.0); HEMOGLOBIN 8.8 g/dL (12.0-15.5); MEAN CORPUSCULAR HEMOGLOBIN 30.3 pg (27.0-33.4); MEAN CORPUSCULAR HGB CONC 33.4 g/dL (32.0-36.0); MEAN CORPUSCULAR VOLUME 91 fl (80-97); PLATELET COUNT 264 10^3/uL (150-450); WHITE BLOOD COUNT 11.1 10^3/uL (4.0-10.5)
[2019-08-09 04:21] LABS: ALBUMIN 2.7 g/dL (3.5-5.0); ALKALINE PHOSPHATASE 81 U/L (38-126); ANION GAP 9 (5-19); ASPARTATE AMINO TRANSFERASE 24 U/L (14-36); BILIRUBIN,DIRECT 1.3 mg/dL (0.0-0.4); BILIRUBIN,TOTAL 1.3 mg/dL (0.2-1.3); BLOOD UREA NITROGEN 27 mg/dL (7-20); CALCIUM 9.2 mg/dL (8.4-10.2); CARBON DIOXIDE 18 mmol/L (22-30); CHLORIDE 114 mmol/L (98-107); GLUCOSE 91 mg/dL (75-110); POTASSIUM 5.1 mmol/L (3.6-5.0); TOTAL PROTEIN 5.1 g/dL (6.3-8.2)
[2019-08-09 04:24] LABS: ABSOLUTE LYMPHOCYTES# (MANUAL) 0.1 10^3/uL (0.5-4.7); ABSOLUTE MONOCYTES # (MANUAL) 0.7 10^3/uL (0.1-1.4); ANISOCYTOSIS 2+; BASOPHILS % (MANUAL) 0 % (0-2); EOSINOPHILS % (MANUAL) 1 % (0-6); LYMPHOCYTES % (MANUAL) 1 % (13-45); MONOCYTES % (MANUAL) 6 % (3-13); SEGMENTED NEUTROPHILS % (MAN) 92 % (42-78); TOTAL CELLS COUNTED 100
[2019-08-09 04:25] LABS: PLATELET COMMENT ADEQUATE
[2019-08-09] MEDS: HYDROCORTISONE SOD SUCCINATE INJ/PF 100 MG/2 ML SDV IV SCH ×3 (05:26→18:11)
[2019-08-09] MEDS: HEPARIN SOD (PORCINE) 5,000 UNIT/ML 1 ML VIAL SUBCUT SCH ×4 (05:27→21:12)
[2019-08-09] MEDS: RINGERS SOLUTION,LACTATED 1,000 ML IV PRN ×2 (06:49→18:12)
[2019-08-09] MEDS ORDERED: ACETAMINOPHEN WITH CODEINE #3 TABLET PO PRN (06:58)
[2019-08-09] MEDS ORDERED: TIZANIDINE HCL 4 MG TABLET PO PRN (06:58)
[2019-08-09] MEDS ORDERED: MAGNESIUM HYDROXIDE SUSP 30 ML UDCUP PO PRN (06:58)
--- NOTE | 2019-08-09 07:27 | PDOC CRITICAL CARE PROG REPORT ---
General Date:: 08/09/19 ICU Day:: 1 Hospital Day:: 1 Resuscitation Status: Full Code Events in the past 12 to 24 Hours:: Found to be hypoadrenal. Steroids given with resolving of hypotension. Review of systems relevant to events:: Endocrine. CV Reason for ICU Addmission:: hpotension - Medications: Medications reviewed and adjusted accordingly: Yes Vasopressors:: None Sedation:: None Physical Exam Vital Signs: Temp Pulse Resp BP Pulse Ox 97.5 F 96 18 108/72 100 08/09/19 03:20 08/08/19 22:40 08/09/19 06:00 08/09/19 05:51 08/09/19 06:00 Intake & Output 08/08/19 08/09/19 08/10/19 06:59 06:59 06:59 Intake Total 3340 Output Total 420 Balance 2920 Weight 60.8 kg Weight/Height Weight 60.8 kg Height 5 ft 5 in General appearance: PRESENT: no acute distress, well-developed, well-nourished Head exam: PRESENT: atraumatic, normocephalic Eye exam: PRESENT: conjunctiva pink, EOMI, PERRLA. ABSENT: scleral icterus Ear exam: PRESENT: normal external ear exam Mouth exam: PRESENT: moist, tongue midline Respiratory exam: PRESENT: clear to auscultation astrid. ABSENT: rales, rhonchi, wheezes Cardiovascular exam: PRESENT: RRR. ABSENT: diastolic murmur, rubs, systolic murmur GI/Abdominal exam: PRESENT: normal bowel sounds, soft. ABSENT: distended, guarding, mass, organolmegaly, rebound, tenderness Rectal exam: PRESENT: deferred Extremities exam: PRESENT: full ROM. ABSENT: calf tenderness, clubbing, pedal edema Neurological exam: PRESENT: alert, awake, oriented to person, oriented to place, oriented to time, oriented to situation, CN II-XII grossly intact. ABSENT: motor sensory deficit Skin exam: PRESENT: dry, intact, warm. ABSENT: cyanosis, rash Laboratory/Radiographs Laboratory Results: 08/09/19 03:37 08/09/19 03:37 08/08/19 08/08/19 08/08/19 14:38 14:38 14:38 WBC 10.3 RBC 3.03 L Hgb 9.2 L Hct 27.6 L MCV 91 MCH 30.4 MCHC 33.3 RDW 18.5 H Plt Count 272 Seg Neutrophils % 83.0 H Sodium 136.9 L Potassium 5.7 H Chloride 107 Carbon Dioxide 22 Anion Gap 8 BUN 32 H Creatinine 1.45 H Est GFR ( Amer) 44 L Glucose 72 L Lactic Acid Calcium 9.3 Phosphorus Magnesium Total Bilirubin 2.1 H AST 33 Alkaline Phosphatase 82 Total Protein 5.7 L Albumin 3.1 L Lipase 50.1 TSH Free T4 Free T3 pg/mL Urine Color Urine Appearance Urine pH Ur Specific [place] Urine Protein Urine Glucose (UA) Urine Ketones Urine Blood Urine Nitrite Ur Leukocyte Esterase Urine WBC (Auto) Urine RBC (Auto) Blood Type A POSITIVE Antibody Screen NEGATIVE 08/08/19 08/08/19 08/08/19 14:38 14:38 16:10 WBC RBC Hgb Hct MCV MCH MCHC RDW Plt Count Seg Neutrophils % Sodium Potassium Chloride Carbon Dioxide Anion Gap BUN Creatinine Est GFR ( Amer) Glucose Lactic Acid Calcium Phosphorus 6.4 H Magnesium 2.2 Total Bilirubin AST Alkaline Phosphatase Total Protein Albumin Lipase TSH 6.94 H Free T4 1.32 Free T3 pg/mL 3.41 Urine Color YELLOW Urine Appearance SLIGHTLY-CLOUDY Urine pH 5.0 Ur Specific [place] 1.012 Urine Protein NEGATIVE Urine Glucose (UA) NEGATIVE Urine Ketones NEGATIVE Urine Blood NEGATIVE Urine Nitrite NEGATIVE Ur Leukocyte Esterase LARGE H Urine WBC (Auto) 124 Urine RBC (Auto) 3 Blood Type Antibody Screen 08/08/19 08/09/19 08/09/19 16:42 03:37 03:37 WBC 11.1 H RBC 2.90 L Hgb 8.8 L Hct 26.3 L MCV 91 MCH 30.3 MCHC 33.4 RDW 19.0 H Plt Count 264 Seg Neutrophils % Not Reportable Sodium 140.9 Potassium 5.1 H Chloride 114 H Carbon Dioxide 18 L Anion Gap 9 BUN 27 H Creatinine 1.14 Est GFR ( Amer) 58 L Glucose 91 Lactic Acid 0.9 Calcium 9.2 Phosphorus Magnesium Total Bilirubin 1.3 AST 24 Alkaline Phosphatase 81 Total Protein 5.1 L Albumin 2.7 L Lipase TSH Free T4 Free T3 pg/mL Urine Color Urine Appearance Urine pH Ur Specific [place] Urine Protein Urine Glucose (UA) Urine Ketones Urine Blood Urine Nitrite Ur Leukocyte Esterase Urine WBC (Auto) Urine RBC (Auto) Blood Type Antibody Screen 08/08/19 10:10 Troponin I 0.012 Impressions: Head CT 08/08/19 00:00 IMPRESSION: 1. Mild small vessel ischemic change. 2. Maxillary and sphenoid sinusitis. 3. No acute intracranial event. EVIDENCE OF ACUTE STROKE: NO. Sacrum and Coccyx X-Ray 08/08/19 00:00 IMPRESSION: NEGATIVE STUDY OF THE SACRUM AND COCCYX. All labs, radiographs, diagnostic studies and EKGs were personally reviewed: Yes In addition, reports of radiographic and diagnostic studies were read: Yes Assessment and Plan - Diagnosis (1) Adrenal insufficiency due to steroid withdrawal Is this a current diagnosis for this admission?: Yes Plan: On IV steroid replacement and doing better. (2) Hypotension Is this a current diagnosis for this admission?: Yes Plan: Resolved. Plan Summary: Continue PT. Continue IV steroids before converting to PO and send home to [place] soon. Critical Time Critical Time (minutes): 30 Level of Care: MEDICAL Anticipated discharge: Home Within: within 72 hours -: 1. The care of a critical patient is a dynamic process. This note is a investment representative synopsis but static in nature. The timeframe for treatments giv en in order is not necessarily the actual time these treatments may have been done. 2. This patient requires critical care secondary to ongoing requirements for therapy not offered or safe outside the critical care environment. Transfer to a lower level of care will result in altered life or limb morbidity and mortality. 3. Multidisciplinary rounds completed. 4. ABCDE bundle addressed.
[2019-08-09] MEDS ORDERED: IPRATROPIUM/ALBUTEROL 0.5-2.5 MG/3 ML AMPUL NEB SCH ×2 (08:00)
--- NOTE | 2019-08-09 09:13 | RADIOLOGY REPORT (SQ) ---
EXAM DESCRIPTION: CHEST SINGLE VIEW COMPLETED DATE/TIME: 08/09/2019 5:53 am REASON FOR STUDY: monitoring COMPARISON: PA and lateral views of the chest from 08/08/2019. EXAM PARAMETERS: NUMBER OF VIEWS: One view. TECHNIQUE: An AP view of the chest was obtained. RADIATION DOSE: NA LIMITATIONS: None. FINDINGS: LUNGS AND PLEURA: Unchanged consolidative opacities in the right upper lobe. The right la teral costophrenic sulcus is blunted. There is no pneumothorax. MEDIASTINUM AND HILAR STRUCTURES: No mediastinal or hilar contour abnormality. HEART AND VASCULAR STRUCTURES: The cardiac silhouette and pulmonary vasculature are within normal gamble its. BONES: No acute findings. HARDWARE: None in the chest. OTHER: No other finding. IMPRESSION: Unchanged radiographic appearance of the chest. TECHNICAL DOCUMENTATION: JOB ID: [id number] 2010 [employer]- All Rights Reserved Reading location - IP/workstation name: [email or web address]
[2019-08-09] MEDS ORDERED: TIZANIDINE HCL 4 MG TABLET PO SCH (10:00)
[2019-08-09] MEDS ORDERED: POTASSIUM CHLORIDE 10 MEQ TABLET.ER PO SCH (10:00)
[2019-08-09] MEDS ORDERED: CEFTRIAXONE SODIUM 1,000 MG in DEXTROSE 5%-WATER 100 ML IV SCH (10:00)
[2019-08-09] MEDS ORDERED: GABAPENTIN 300 MG CAPSULE PO SCH ×2 (10:00)
[2019-08-09] MEDS ORDERED: CITALOPRAM HYDROBROMIDE 20 MG TABLET PO SCH ×2 (10:00)
[2019-08-09] MEDS ORDERED: FLUTICASONE NASAL SPRAY 50 MCG/SPRY 120 SPRAY/16 GM NASL SCH (10:00)
[2019-08-09] MEDS: FLUTICASONE NASAL SPRAY 50 MCG/SPRY 120 SPRAY/16 GM NASL SCH (14:14)
[2019-08-09] MEDS: ACETAMINOPHEN 325 MG TABLET PO PRN ×2 (14:15→21:11)
[2019-08-09] MEDS: FERROUS SULFATE 325 MG TABLET PO SCH ×2 (14:15→18:11)
[2019-08-09] MEDS ORDERED: CEFTRIAXONE 1 GM/D5W RTU 1 GM/50 ML RTUPB IV SCH (18:00)
--- NOTE | 2019-08-09 19:48 | Progress Note ---
Provider Note Provider Note: Spoke with son Edward on the phone to answer questions regarding discharge and the plan to hopefully take pt back to [place] to live on Tuesday. Family plans to arrive late Tuesday night with intentions to drive or fly her home Tuesday.
[2019-08-09 19:59] LABS: C DIFFICILE GDH NEGATIVE (NEGATIVE)
[2019-08-09] MEDS: MELATONIN 5 MG TABLET PO SCH (21:11)
[2019-08-09] MEDS: LATANOPROST 0.005% OPH SOLN 2.5 ML OU SCH (21:12)
[2019-08-10] MEDS: HYDROCORTISONE SOD SUCCINATE INJ/PF 100 MG/2 ML SDV IV SCH ×2 (00:45→06:04)
[2019-08-10 04:00] LABS: ABSOLUTE LYMPHOCYTES (AUTO) 0.5 10^3/uL (0.5-4.7); ABSOLUTE MONOCYTES (AUTO) 0.3 10^3/uL (0.1-1.4); ABSOLUTE NEUT (AUTO) 8.1 10^3/uL (1.7-8.2); BASOPHILS % (AUTO) 0.4 % (0-2); EOSINOPHILS % (AUTO) 0.2 % (0-6); HEMATOCRIT 24.5 % (36.0-47.0); LYMPHOCYTES % (AUTO) 5.9 % (13-45); MEAN CORPUSCULAR HEMOGLOBIN 29.6 pg (27.0-33.4); MEAN CORPUSCULAR HGB CONC 32.7 g/dL (32.0-36.0); MEAN CORPUSCULAR VOLUME 90 fl (80-97); MONOCYTES % (AUTO) 3.5 % (3-13); PLATELET COUNT 271 10^3/uL (150-450); RED BLOOD COUNT 2.71 10^6/uL (3.72-5.28); RED CELL DISTRIBUTION WIDTH 18.2 % (11.5-14.0); TOTAL CELLS COUNTED % (AUTO) 100 %
[2019-08-10 04:18] LABS: ALBUMIN 2.5 g/dL (3.5-5.0); ALKALINE PHOSPHATASE 65 U/L (38-126); ANION GAP 8 (5-19); ASPARTATE AMINO TRANSFERASE 15 U/L (14-36); BILIRUBIN,DIRECT 0.4 mg/dL (0.0-0.4); BILIRUBIN,TOTAL 0.4 mg/dL (0.2-1.3); BLOOD UREA NITROGEN 27 mg/dL (7-20); CALCIUM 9.1 mg/dL (8.4-10.2); CARBON DIOXIDE 18 mmol/L (22-30); CHLORIDE 113 mmol/L (98-107); GLUCOSE 101 mg/dL (75-110); POTASSIUM 4.4 mmol/L (3.6-5.0); TOTAL PROTEIN 5.1 g/dL (6.3-8.2)
[2019-08-10] MEDS: HEPARIN SOD (PORCINE) 5,000 UNIT/ML 1 ML VIAL SUBCUT SCH ×3 (05:41→22:25)
--- NOTE | 2019-08-10 10:38 | PDOC CRITICAL CARE PROG REPORT ---
General Date:: 08/10/19 Hospital Day:: 2 Resuscitation Status: Full Code Events in the past 12 to 24 Hours:: Transitioning all meds to PO for discharge. Review of systems relevant to events:: Respiratory. Reason for ICU Addmission:: hpotension - Medications: Medications reviewed and adjusted accordingly: Yes Vasopressors:: None Sedation:: None Physical Exam Vital Signs: Temp Pulse Resp BP Pulse Ox 98.2 F 69 17 133/71 H 100 08/10/19 08:00 08/10/19 08:00 08/10/19 08:00 08/10/19 08:00 08/10/19 08:00 Intake & Output 08/09/19 08/10/19 08/11/19 06:59 06:59 06:59 Intake Total 3340 1000 1000 Output Total 420 1150 Balance 2920 -150 1000 Weight 60.8 kg 65.1 kg Weight/Height Weight 65.1 kg Height 5 ft 5 in General appearance: PRESENT: no acute distress Head exam: PRESENT: atraumatic, normocephalic Eye exam: PRESENT: conjunctiva pink, EOMI, PERRLA. ABSENT: scleral icterus Ear exam: PRESENT: normal external ear exam Mouth exam: PRESENT: moist, tongue midline Respiratory exam: PRESENT: clear to auscultation astrid, decreased breath sounds. ABSENT: rales, rhonchi, wheezes Cardiovascular exam: PRESENT: RRR. ABSENT: diastolic murmur, rubs, systolic murmur Vascular exam: PRESENT: normal capillary refill GI/Abdominal exam: PRESENT: normal bowel sounds, soft. ABSENT: distended, guarding, mass, organolmegaly, rebound, tenderness Extremities exam: PRESENT: full ROM. ABSENT: calf tenderness, clubbing, pedal edema Neurological exam: PRESENT: alert, awake, oriented to person, oriented to place, oriented to time, oriented to situation, CN II-XII grossly intact. ABSENT: motor sensory deficit Psychiatric exam: PRESENT: appropriate affect, normal mood. ABSENT: homicidal ideation, suicidal ideation Skin exam: PRESENT: dry, intact, warm. ABSENT: cyanosis, rash Laboratory/Radiographs Laboratory Results: 08/10/19 03:29 08/10/19 03:29 08/10/19 08/10/19 03:29 03:29 WBC 9.0 RBC 2.71 L Hgb 8.0 L Hct 24.5 L MCV 90 MCH 29.6 MCHC 32.7 RDW 18.2 H Plt Count 271 Seg Neutrophils % 90.0 H Sodium 139.3 Potassium 4.4 Chloride 113 H Carbon Dioxide 18 L Anion Gap 8 BUN 27 H Creatinine 1.09 Est GFR ( Amer) > 60 Glucose 101 Calcium 9.1 Total Bilirubin 0.4 AST 15 Alkaline Phosphatase 65 Total Protein 5.1 L Albumin 2.5 L 08/08/19 10:10 Troponin I 0.012 Impressions: Head CT 08/08/19 00:00 IMPRESSION: 1. Mild small vessel ischemic change. 2. Maxillary and sphenoid sinusitis. 3. No acute intracranial event. EVIDENCE OF ACUTE STROKE: NO. Sacrum and Coccyx X-Ray 08/08/19 00:00 IMPRESSION: NEGATIVE STUDY OF THE SACRUM AND COCCYX. Chest X-Ray 08/09/19 06:00 IMPRESSION: Unchanged radiographic appearance of the chest. All labs, radiographs, diagnostic studies and EKGs were personally reviewed: Yes In addition, reports of radiographic and diagnostic studies were read: Yes Assessment and Plan - Diagnosis (1) Adrenal insufficiency due to steroid withdrawal Is this a current diagnosis for this admission?: Yes Plan: Now on PO hydrocortisone (2) Hypotension Is this a current diagnosis for this admission?: Yes Plan: Resolved. (3) COPD (chronic obstructive pulmonary disease) Qualifiers: Emphysema type: centrilobular Is this a current diagnosis for this admission?: Yes Plan: Patient's COPD is not active now but she uses O2 at home and will need it for the drive back to [place] Tuesday. Plan Summary: D/C [facility] and ready for discharge in AM. Critical Time Critical Time (minutes): 25 Level of Care: MEDICAL Anticipated discharge: Home Within: within 24 hours -: 1. The care of a critical patient is a dynamic process. This note is a independent sales representative synopsis but static in nature. The timeframe for treatments given in order is not necessarily the actual time these treatments may have been done. 2. This patient requires critical care secondary to ongoing requirements for therapy not offered or safe outside the critical care environment. Transfer to a lower level of care will result in altered life or limb morbidity and mortality. 3. Multidisciplinary rounds completed. 4. ABCDE bundle addressed.
[2019-08-10] MEDS: ACETAMINOPHEN 325 MG TABLET PO PRN ×2 (10:46→19:09)
[2019-08-10] MEDS: FLUTICASONE NASAL SPRAY 50 MCG/SPRY 120 SPRAY/16 GM NASL SCH (10:46)
[2019-08-10] MEDS: HYDROCORTISONE 10 MG TABLET PO SCH ×2 (10:46→19:05)
[2019-08-10] MEDS: FERROUS SULFATE 325 MG TABLET PO SCH ×2 (10:46→19:08)
[2019-08-10] MEDS: MELATONIN 5 MG TABLET PO SCH (22:26)
[2019-08-11] MEDS: LATANOPROST 0.005% OPH SOLN 2.5 ML OU SCH (00:59)
[2019-08-11 04:18] LABS: HEMOGLOBIN 8.5 g/dL (12.0-15.5); MEAN CORPUSCULAR HEMOGLOBIN 29.6 pg (27.0-33.4); MEAN CORPUSCULAR HGB CONC 32.8 g/dL (32.0-36.0); MEAN CORPUSCULAR VOLUME 90 fl (80-97); PLATELET COUNT 285 10^3/uL (150-450); RED BLOOD COUNT 2.88 10^6/uL (3.72-5.28); RED CELL DISTRIBUTION WIDTH 18.5 % (11.5-14.0); WHITE BLOOD COUNT 7.8 10^3/uL (4.0-10.5)
[2019-08-11 04:32] LABS: ALBUMIN 2.4 g/dL (3.5-5.0); ALKALINE PHOSPHATASE 58 U/L (38-126); ASPARTATE AMINO TRANSFERASE 16 U/L (14-36); BILIRUBIN,TOTAL 0.2 mg/dL (0.2-1.3); BLOOD UREA NITROGEN 21 mg/dL (7-20); CALCIUM 9.3 mg/dL (8.4-10.2); CHLORIDE 115 mmol/L (98-107); GLUCOSE 92 mg/dL (75-110); POTASSIUM 3.9 mmol/L (3.6-5.0); TOTAL PROTEIN 4.6 g/dL (6.3-8.2)
[2019-08-11 04:37] LABS: ABSOLUTE LYMPHOCYTES# (MANUAL) 1.1 10^3/uL (0.5-4.7); ABSOLUTE MONOCYTES # (MANUAL) 0.7 10^3/uL (0.1-1.4); BAND NEUTROPHILS % (MANUAL) 1 % (3-5); BASOPHILS % (MANUAL) 0 % (0-2); EOSINOPHILS % (MANUAL) 3 % (0-6); LYMPHOCYTES % (MANUAL) 14 % (13-45); METAMYELOCYTES % (MANUAL) 1 % (0-1); MONOCYTES % (MANUAL) 9 % (3-13); SEGMENTED NEUTROPHILS % (MAN) 72 % (42-78); TOTAL CELLS COUNTED 100
[2019-08-11 04:38] LABS: ANION GAP 3 (5-19); ANISOCYTOSIS 2+; CARBON DIOXIDE 22 mmol/L (22-30); PLATELET COMMENT ADEQUATE
[2019-08-11] MEDS: HEPARIN SOD (PORCINE) 5,000 UNIT/ML 1 ML VIAL SUBCUT SCH ×2 (06:23→13:09)
--- NOTE | 2019-08-11 07:56 | PDOC DISCHARGE SUMMARY ---
Impression - Admit/DC Date/PCP Admission Date/Primary Care Provider: 08/08/19 21:04 LEIGH ADAMES MD Discharge Date: 08/11/19 - Discharge Diagnosis (1) Adrenal insufficiency due to steroid withdrawal Is this a current diagnosis for this admission?: Yes (2) Hypotension Is this a current diagnosis for this admission?: Yes (3) COPD (chronic obstructive pulmonary disease) Is this a current diagnosis for this admission?: Yes - Assessment Summary: This patient is a 63 yo woman who was in the ICU recently for COPD and a failure to thrive. She was at a [facility] for [facility] and developed hypotension and found to be hypoadreal. She was begun on stress dose steroids and has done well. She is re wilfrido for discharge home which will be in [facility] with family. - Additional Information Resuscitation Status: Full Code Discharge Diet: As Tolerated Discharge Activity: Activity As Tolerated, Walk Frequently Referrals: LEIGH ADAMES MD [Primary Care Provider] - Follow up as needed Home Medications: Acetaminophen with Codeine [Tylenol #3 Tablet] 1 each PO Q4HP PRN 08/08/19 Citalopram Hydrobromide [Celexa 20 mg Tablet] 20 mg PO DAILY 08/08/19 Ferrous Sulfate [Feosol 325 mg Tablet] 325 mg PO BID 08/08/19 Fluticasone Propionate [Flonase Nasal [place] 50 Mcg/[place] 16 gm] 2 sprays NASL DAILY 08/08/19 Gabapentin [Neurontin 300 mg Capsule] 300 mg PO Q12 08/08/19 Hydrocodone/Acetaminophen [Veblen 10-325 mg Tablet] 1 tab PO Q6HP PRN 08/08/19 Ipratropium/Albuterol Sulfate [Duoneb 3 ml Ampul] 3 ml NEB RTQ12 08/08/19 Latanoprost [Xalatan] 2.5 ml OU QHS 08/08/19 Magnesium Hydroxide [Milk of Magnesia 30 ml Udcup] 30 ml PO BIDP PRN 08/08/19 Melatonin [Melatonin 5 mg Tablet] 10 mg PO QHS 08/08/19 Potassium Chloride [Klor-Con 10 Meq Tablet ER] 10 meq PO Q12 08/08/19 Tizanidine HCl [Zanaflex 4 Mg Tablet] 4 mg PO Q12HP PRN 08/08/19 History of Present Illiness History of Present Illness: KYLAH DUNHAM is a 63 year old female Hospital Course Hospital Course: After getting stress dose steroids she has maitain normotension and has been walking with PT. Needs O2 for the ride home. Physical Exam Vital Signs: Temp Pulse Resp BP Pulse Ox 98.2 F 95 22 H 138/83 H 100 08/10/19 08:00 08/10/19 20:00 08/11/19 06:00 08/11/19 05:52 08/11/19 06:00 Intake & Output 08/10/19 08/11/19 08/12/19 06:59 06:59 06:59 Intake Total 1000 1000 Output Total 1150 525 Balance -150 475 Weight 65.1 kg 65.1 kg General appearance: PRESENT: no acute distress, well-developed, well-nourished Head exam: PRESENT: atraumatic, normocephalic Eye exam: PRESENT: conjunctiva pink, EOMI, PERRLA. ABSENT: scleral icterus Ear exam: PRESENT: normal external ear exam Mouth exam: PRESENT: moist, tongue midline Respiratory exam: PRESENT: clear to auscultation astrid, decreased breath sounds. ABSENT: rales, rhonchi, wheezes Cardiovascular exam: PRESENT: RRR. ABSENT: diastolic murmur, rubs, systolic murmur GI/Abdominal exam: PRESENT: normal bowel sounds, soft. ABSENT: distended, guarding, mass, organolmegaly, rebound, tenderness Rectal exam: PRESENT: deferred Extremities exam: PRESENT: full ROM. ABSENT: calf tenderness, clubbing, pedal edema Musculoskeletal exam: PRESENT: normal inspection Neurological exam: PRESENT: alert, awake, oriented to person, oriented to place, oriented to time, oriented to situation, CN II-XII grossly intact. ABSENT: motor sensory deficit Skin exam: PRESENT: dry, intact, warm. ABSENT: cyanosis, rash Results Laboratory Results: WBC 7.8 10^3/uL (4.0-10.5) 08/11/19 03:53 RBC 2.88 10^6/uL (3.72-5.28) L 08/11/19 03:53 Hgb 8.5 g/dL (12.0-15.5) L 08/11/19 03:53 Hct 26.0 % (36.0-47.0) L 08/11/19 03:53 MCV 90 fl (80-97) 08/11/19 03:53 MCH 29.6 pg (27.0-33.4) 08/11/19 03:53 MCHC 32.8 g/dL (32.0-36.0) 08/11/19 03:53 RDW 18.5 % (11.5-14.0) H 08/11/19 03:53 Plt Count 285 10^3/uL (150-450) 08/11/19 03:53 Lymph % (Auto) Not Reportable 08/11/19 03:53 [place] % (Auto) Not Reportable 08/11/19 03:53 Eos % (Auto) Not Reportable 08/11/19 03:53 Baso % (Auto) Not Reportable 08/11/19 03:53 Absolute Neuts (auto) Not Reportable 08/11/19 03:53 Absolute Lymphs (auto) Not Reportable 08/11/19 03:53 Absolute Monos (auto) Not Reportable 08/11/19 03:53 Absolute Eos (auto) Not Reportable 08/11/19 03:53 Absolute Basos (auto) Not Reportable 08/11/19 03:53 Total Counted 100 08/11/19 03:53 Seg Neutrophils % Not Reportable 08/11/19 03:53 Seg Neuts % (Manual) 72 % (42-78) 08/11/19 03:53 Band Neutrophils % 1 % (3-5) L 08/11/19 03:53 Lymphocytes % (Manual) 14 % (13-45) 08/11/19 03:53 Monocytes % (Manual) 9 % (3-13) 08/11/19 03:53 Eosinophils % (Manual) 3 % (0-6) 08/11/19 03:53 Basophils % (Manual) 0 % (0-2) 08/11/19 03:53 Metamyelocytes % 1 % (0-1) 08/11/19 03:53 Abs Neuts (Manual) 5.8 10^3/uL (1.7-8.2) 08/11/19 03:53 Abs Lymphs (Manual) 1.1 10^3/uL (0.5-4.7) 08/11/19 03:53 Abs Monocytes (Manual) 0.7 10^3/uL (0.1-1.4) 08/11/19 03:53 Absolute Eos (Manual) 0.2 10^3/uL (0.0-0.6) 08/11/19 03:53 Abs Basophils (Manual) 0.0 10^3/uL (0.0-0.2) 08/11/19 03:53 Platelet Comment ADEQUATE 08/11/19 03:53 Anisocytosis 2+ 08/11/19 03:53 Sodium 140.1 mmol/L (137-145) 08/11/19 03:53 Potassium 3.9 mmol/L (3.6-5.0) 08/11/19 03:53 Chloride 115 mmol/L (98-107) H 08/11/19 03:53 Carbon Dioxide 22 mmol/L (22-30) 08/11/19 03:53 Anion Gap 3 (5-19) L 08/11/19 03:53 BUN 21 mg/dL (7-20) H 08/11/19 03:53 Creatinine 0.63 mg/dL (0.52-1.25) 08/11/19 03:53 Est GFR ( Amer) > 60 (>60) 08/11/19 03:53 Est GFR (MDRD) Non-Af > 60 (>60) 08/11/19 03:53 Glucose 92 mg/dL (75-110) 08/11/19 03:53 Lactic Acid 0.9 mmol/L (0.7-2.1) 08/08/19 16:42 Calcium 9.3 mg/dL (8.4-10.2) 08/11/19 03:53 Phosphorus 6.4 mg/dL (2.5-4.5) H 08/08/19 14:38 Magnesium 2.2 mg/dL (1.6-2.3) 08/08/19 14:38 Total Bilirubin 0.2 mg/dL (0.2-1.3) 08/11/19 03:53 Direct Bilirubin 0.0 mg/dL (0.0-0.4) 08/11/19 03:53 Neonat Total Bilirubin Not Reportable 08/11/19 03:53 Neonat Direct Bilirubin Not Reportable 08/11/19 03:53 Neonat Indirect Bili Not Reportable 08/11/19 03:53 AST 16 U/L (14-36) 08/11/19 03:53 ALT 17 U/L (<35) 08/11/19 03:53 Alkaline Phosphatase 58 U/L (38-126) 08/11/19 03:53 Troponin I 0.012 ng/mL 08/08/19 10:10 Total Protein 4.6 g/dL (6.3-8.2) L 08/11/19 03:53 Albumin 2.4 g/dL (3.5-5.0) L 08/11/19 03:53 Lipase 50.1 U/L (23-300) 08/08/19 14:38 TSH 6.94 uIU/mL (0.47-4.68) H 08/08/19 14:38 Free T4 1.32 ng/dL (0.78-2.19) 08/08/19 14:38 Free T3 pg/mL 3.41 pg/mL (2.77-5.27) 08/08/19 14:38 Random Cortisol 8.18 ug/dL (None Established) 08/08/19 14:38 Urine Color YELLOW 08/08/19 16:10 Urine Appearance SLIGHTLY-CLOUDY 08/08/19 16:10 Urine pH 5.0 (5.0-9.0) 08/08/19 16:10 Ur Specific [place] 1.012 08/08/19 16:10 Urine Protein NEGATIVE mg/dL (NEGATIVE) 08/08/19 16:10 Urine Glucose (UA) NEGATIVE mg/dL (NEGATIVE) 08/08/19 16:10 Urine Ketones NEGATIVE mg/dL (NEGATIVE) 08/08/19 16:10 Urine Blood NEGATIVE (NEGATIVE) 08/08/19 16:10 Urine Nitrite NEGATIVE (NEGATIVE) 08/08/19 16:10 Urine Bilirubin NEGATIVE (NEGATIVE) 08/08/19 16:10 Urine Urobilinogen NEGATIVE mg/dL (<2.0) 08/08/19 16:10 Ur Leukocyte Esterase LARGE (NEGATIVE) H 08/08/19 16:10 Urine WBC (Auto) 124 /HPF 08/08/19 16:10 Urine RBC (Auto) 3 /HPF 08/08/19 16:10 U Hyaline Cast (Auto) 7 /LPF 08/08/19 16:10 Urine Bacteria (Auto) TRACE /HPF 08/08/19 16:10 Urine WBC Clumps FEW /HPF 08/08/19 16:10 Squamous Epi Cells Auto 1 /HPF 08/08/19 16:10 U Non-Squamous Epis Auto 1 /HPF 08/08/19 16:10 Urine Mucus (Auto) RARE /LPF 08/08/19 16:10 Urine Yeast (Budding) PRESENT /HPF 08/08/19 16:10 Urine Ascorbic Acid NEGATIVE (NEGATIVE) 08/08/19 16:10 Stl C. Difficile GDH Ag NEGATIVE (NEGATIVE) 08/09/19 18:17 Stl C.difficile Tox A&B NEGATIVE (NEGATIVE) 08/09/19 18:17 Blood Type A POSITIVE 08/08/19 14:38 Antibody Screen NEGATIVE 08/08/19 14:38 08/08/19 10:10 Troponin I 0.012 EKG Comments: NSR Impressions: Head CT 08/08/19 00:00 IMPRESSION: 1. Mild small vessel ischemic change. 2. Maxillary and sphenoid sinusitis. 3. No acute intracranial event. EVIDENCE OF ACUTE STROKE: NO. Sacrum and Coccyx X-Ray 08/08/19 00:00 IMPRESSION: NEGATIVE STUDY OF THE SACRUM AND COCCYX. Chest X-Ray 08/08/19 15:19 IMPRESSION: Persistent relatively dense right upper lobe consolidation mostly subpleural in location. Significantly improved from prior study. Chest X-Ray 08/09/19 06:00 IMPRESSION: Unchanged radiographic appearance of the chest. Plan Health Concerns: Home with family in [facility]. Will take 2 days. Advise to get out of car and walk every 3 hours to prevent clots and stiffness. Plan of Treatment: PT at home. Hydrocortisone for 1 month or less. Goals: Acheive previous level of functioning. Critical Time: 0 Level of Care: MEDICAL Stroke Is this a Stroke Patient?: No Acute Heart Failure - Is this a Heart Failure Patient?: No
[2019-08-11 08:43] VITALS: BP 145/91
[2019-08-11] MEDS: FLUTICASONE NASAL SPRAY 50 MCG/SPRY 120 SPRAY/16 GM NASL SCH (10:40)
[2019-08-11] MEDS: FERROUS SULFATE 325 MG TABLET PO SCH ×2 (10:40→17:12)
[2019-08-11] MEDS: HYDROCORTISONE 10 MG TABLET PO SCH ×2 (10:40→17:12)
[2019-08-11] MEDS: ACETAMINOPHEN 325 MG TABLET PO PRN (17:15)
== END 2019-08-11 19:35 | disposition home or self-care (01) | DRG 644 ==
LOC: ER 14:22 → EH 21:04 → ICU 22:22
PROVIDERS: ADMIT Anesthesiology; ATTEND Anesthesiology
DX: E27.49 Other adrenocortical insufficiency (principal); N17.9 Acute kidney failure, unspecified; N39.0 Urinary tract infection, site not specified; F19.939 Other psychoactive substance use, unspecified with withdrawal, unspecified; I95.9 Hypotension, unspecified; K21.9 Gastro-esophageal reflux disease without esophagitis; J44.9 Chronic obstructive pulmonary disease, unspecified; G89.29 Other chronic pain; R19.7 Diarrhea, unspecified; F41.8 Other specified anxiety disorders; W18.39XA Other fall on same level, initial encounter; Y93.89 Activity, other specified; Y92.128 Other place in nursing home as the place of occurrence of the external cause; Y99.9 Unspecified external cause status; Z79.891 Long term (current) use of opiate analgesic; Z79.51 Long term (current) use of inhaled steroids; Z79.899 Other long term (current) drug therapy
CPT/HCPCS: 36415; 70450; 71045; 71046; 72220; 80053; 81001; 82533; 83605; 83690; 83735; 84100; 84439; 84443; 84481; 84484; 85025; 86850; 86900; 86901; 87040; 87086; 87324; 87449; 93005; 93010; 94640; 96361; 96365; 96375; 99231; 99232; 99238; 99291; J0696; J1644; J1720; J3490; J7030; J7120